=== PATIENT | male | born 1945 | race Caucasian/White ===

== ENCOUNTER → 2017-05-09 13:30 | Outpatient (CLI) | payer MEDICARE, SELFPAY ==
[2017-05-09 15:10] LABS: Protein, Urine (Random) 187.1 mg/dL (<11.9); Protein:Creat Ratio 1627 mg/g CRE (0-200)
[2017-05-09 15:13] LABS: Hematocrit 36.6 % (40-54); Hemoglobin 11.7 g/dl (13.0-16.5); Mean Corpuscular Hgb 30.6 pg (27.0-32.0); Mean Corpuscular Volume 95.8 fL (80-94); Mean Platelet Vol. 11.6 fl (6.2-12.0); Platelet Count 226 K/mm3 (150-450); RBC Distribution Width CV 14.2 % (11.6-14.6); Red Blood Count 3.82 M/mm3 (4.6-6.2); White Blood Count 8.8 K/mm3 (4.4-11.0)
[2017-05-09 15:14] LABS: Scan Indicated on CBC? Y/N NO
[2017-05-09 15:28] LABS: BUN 59 mg/dL (7-18); BUN/Creat Ratio 17.9 RATIO (10-20); Calcium,Total 8.8 mg/dL (8.5-10.1); Chloride 105 mmol/L (98-107); EST Glomerular Filtration Rate 20 mL/min (>60); Est Glom Filt Rate - Afr Amer 24 mL/min (>60); Glucose 100 mg/dL (74-106); Phosphorus 3.5 mg/dL (2.5-4.9); Potassium 5.1 mmol/L (3.5-5.1); Sodium Level 137 mmol/L (136-145)
[2017-05-10 08:56] LABS: PTHIN 127.4 pg/mL (18.4-80.1)
== END ==
PROVIDERS: Family Provider Family Medicine; PCP Family Medicine; Visit Provider Internal Medicine Nephrology
DX: N18.4 Chronic kidney disease, stage 4 (severe) (principal); E11.21 Type 2 diabetes mellitus with diabetic nephropathy
CPT/HCPCS: 36415; 80069; 82570; 83970; 84156; 85027

== ENCOUNTER → 2017-08-17 08:31 | Outpatient (CLI) | payer MEDICARE, SELFPAY ==
[2017-08-17 09:38] LABS: Hematocrit 37.6 % (40-54); Hemoglobin 12.3 g/dl (13.0-16.5); Mean Corp Hgb Conc 32.7 g/gl (32-36); Mean Corpuscular Hgb 30.7 pg (27.0-32.0); Mean Corpuscular Volume 93.8 fL (80-94); Mean Platelet Vol. 11.6 fl (6.2-12.0); Platelet Count 222 K/mm3 (150-450); RBC Distribution Width SD 48.1 fl (35.1-43.9); Red Blood Count 4.01 M/mm3 (4.6-6.2); White Blood Count 7.4 K/mm3 (4.4-11.0)
[2017-08-17 09:49] LABS: Albumin, Serum 3.7 g/dL (3.2-5.0); BUN 52 mg/dL (7-18); BUN/Creat Ratio 18.2 RATIO (10-20); Calcium,Total 8.6 mg/dL (8.5-10.1); Chloride 108 mmol/L (98-107); Creatinine, Serum 2.86 mg/dL (0.70-1.30); EST Glomerular Filtration Rate 23 mL/min (>60); Est Glom Filt Rate - Afr Amer 28 mL/min (>60); Glucose 133 mg/dL (74-106); Phosphorus 3.7 mg/dL (2.5-4.9); Potassium 5.2 mmol/L (3.5-5.1); Sodium Level 141 mmol/L (136-145)
[2017-08-17 09:50] LABS: Scan Indicated on CBC? Y/N NO
[2017-08-17 13:22] LABS: PTHIN 131.1 pg/mL (18.4-80.1)
== END ==
PROVIDERS: Family Provider Family Medicine; PCP Family Medicine; Visit Provider Internal Medicine Nephrology
DX: D64.9 Anemia, unspecified (principal); N18.4 Chronic kidney disease, stage 4 (severe)
CPT/HCPCS: 36415; 80069; 83970; 85027

== ENCOUNTER 2017-08-31 04:06 | Observation (INO) | payer MEDICARE, SELFPAY ==
[2017-08-31] VITALS (29 sets, daily range): BP systolic 140–205; BP diastolic 79–114; PULSE 72–91; RESP 13–24; TEMP 36.5–36.9; O2SAT 94–99; BMI 27.1; BMI 26.6; BMI 26.7
--- NOTE | 2017-08-31 04:20 | EKG12_ITS ---
Test Reason : CP Blood Pressure : / mmHG Vent. Rate : 091 BPM Atrial Rate : 091 BPM P-R Int : 180 ms QRS Dur : 150 ms QT Int : 422 ms P-R-T Axes : 045 -02 089 degrees QTc Int : 519 ms Sinus rhythm with frequent Premature ventricular complexes Left bundle branch block Abnormal ECG Confirmed by ABDIAZIZ CABRERA, MADAN ([id number]), editorial manager TEA BATISTA ([id number]) on 09/01/2017 1:17:07 PM Referred By: CHECO Confirmed By:MADAN FREED MD
--- NOTE | 2017-08-31 04:30 | RAD_ITS ---
STUDY: X-RAY CHEST REASON FOR EXAM: Male, 72 years old. Chest pain and shortness of breath. TECHNIQUE: PA and lateral views of the chest. COMPARISON: December 02, 2013. FINDINGS: Cardiac monitoring leads are present. Patient has had a sternotomy. The lungs are underexpanded. There is a mild perihilar and interstitial thickening present in both lungs. There is no demonstrated pleural abnormality. Normal size heart. There are calcified mediastinal and hilar lymph nodes. Normal visualized pulmonary arteries. There is atherosclerotic calcification of the aortic arch with tortuosity. There is moderate curvature of the thoracic spine convexity towards the right. Estimated amount of angulation is approximately 26 degrees. Normal visualized ribs, clavicles, and shoulders. Filter is visible in inferior vena cava. RAD/Chest PA and Lateral IMPRESSION: No radiographic evidence of acute cardiopulmonary disease. Electronically Signed: Lanie Hurtado MD at 5:16 EDT , Service support ,
[2017-08-31 04:43] LABS: Anion Gap 11 (5-15); BUN 52 mg/dL (7-18); BUN/Creat Ratio 17.8 RATIO (10-20); Calcium,Total 9.4 mg/dL (8.5-10.1); Chloride 108 mmol/L (98-107); Creatinine, Serum 2.92 mg/dL (0.70-1.30); EST Glomerular Filtration Rate 23 mL/min (>60); Est Glom Filt Rate - Afr Amer 27 mL/min (>60); Estimated Creatinine Clearance 21.06 ml/min; Glucose 140 mg/dL (74-106); Potassium 4.6 mmol/L (3.5-5.1); Sodium Level 142 mmol/L (136-145)
[2017-08-31 04:46] LABS: Absolute Lymphocyte Count 1.29 X10^3/ul (0.83-4.51); Absolute Neutrophil Count 5.2 X10^3/uL (2.0-7.7); Basophil# 0.09 X10^3/uL; Eosinophil# 1.41 X10^3/uL; Eosinophils% 16.1 % (0-5); Hematocrit 34.8 % (40-54); Hemoglobin 11.7 g/dl (13.0-16.5); Lymphocyte # 1.29 X10^3/ul (4.0); Lymphocyte % 14.7 % (19-41); Mean Corp Hgb Conc 33.6 g/gl (32-36); Mean Corpuscular Hgb 31.5 pg (27.0-32.0); Mean Corpuscular Volume 93.8 fL (80-94); Mean Platelet Vol. 11.4 fl (6.2-12.0); Monocyte% 9.1 % (0-10); Neutrophil # 5.18 X10^3/uL (2.7-7.7); Platelet Count 224 K/mm3 (150-450); RBC Distribution Width CV 13.9 % (11.6-14.6); RBC Distribution Width SD 45.3 fl (35.1-43.9); Red Blood Count 3.71 M/mm3 (4.6-6.2); White Blood Count 8.8 K/mm3 (4.4-11.0)
[2017-08-31] MEDS: Aspirin 81 MG TAB.CHEW 324 MG PO (04:48)
[2017-08-31 04:55] LABS: POSITIVE COUNT NO; POSITIVE DIFFERENTIAL NO; POSITIVE MORPHOLOGY NO
--- NOTE | 2017-08-31 05:22 | EKG12_ITS ---
Test Reason : REPEAT Blood Pressure : / mmHG Vent. Rate : 087 BPM Atrial Rate : 087 BPM P-R Int : 192 ms QRS Dur : 152 ms QT Int : 432 ms P-R-T Axes : 059 -18 103 degrees QTc Int : 519 ms Sinus rhythm with Fusion complexes Left bundle branch block Abnormal ECG Confirmed by ABDIAZIZ CABRERA, MADAN ([id number]), news videotape editor TEA BATISTA ([id number]) on 09/01/2017 1:17:22 PM Referred By: CHECO Confirmed By:MADAN FREED MD
--- NOTE | 2017-08-31 05:28 | ED.RN ---
DR. KESSLER PUT AN ORDER FOR NITROGLYCERIN TABLETS FOR ACUTE CHEST PAIN AGAIN. WHEN I WENT IN TO BRING THE TABS, PT STATES HE DOES NOT HAVE CHEST PAIN CURRENTLY. HE DESCRIBED THE PAIN TO ME STARTING IN THE BACK AND MOVING AROUND AND HE ?? WHETHER IT COULD BE GAS. DR. KESSLER AWARE.
--- NOTE | 2017-08-31 05:32 | ED.VISSUMM ---
- ER Visit Summary Date of Service: 08/31/17 Chief Complaint: Chest pain History of Present Illness: The patient is a 72 M who presents with chest pain. He does have a history of coronary artery disease with prior stents and CABG. Over the past week he has been having frequent episodes of chest pain usually when he lays flat at night. He describes this as burning. It is often relieved with burping. However he had an episode last night that lasted until he took nitroglycerin and then had resolution of symptoms. He woke about 45 minutes prior to presentation tonight with recurrent pain which again resolved with nitroglycerin and he is pain-free at the time of my history. He states his pain is associated with shortness of breath and diaphoresis. Physical Examination: Afebrile blood pressure 200/104 otherwise unremarkable Moist mucous membranes Heart regular rate and rhythm Lungs are clear Abdomen soft Symmetric radial pulses Extremities nontender Alert Test Results: EKG shows sinus rhythm at a rate of 91 with PVCs and a left bundle branch block. Left bundle branch block is new when compared to prior EKG. Repeat EKG is unchanged. CBC BMP notable for BUN of 52 and creatinine of 2.92 which appears to be near his baseline. Troponin is normal. Chest x-ray shows no acute disease. Emergency Department Course and Treatment: Patient was pain-free at the time my evaluation. He was given labetalol for elevated blood pressure. On reevaluation he states his pain is beginning to return. Nitroglycerin and repeat EKG was ordered. However prior to the nitroglycerin being administered the patient states his pain again resolved. Although his symptoms do sound consistent with a gastrointestinal etiology I am concerned that the last 2 episodes resolved with nitroglycerin. Given his known history I do feel he should have serial enzymes and likely provocative testing. Treatment Plan: [] Disposition: Admit Impression: Chest pain This note was generated with [employer] dictation software. It may contain incorrect words, spelling, and punctuation that were not noted in review of the chart prior to signing ED Disposition - Plan for ED Patient: Chief Complaint: Chest Pain Referrals: Prasad Concepcion III, MD [Primary Care Provider] -
--- NOTE | 2017-08-31 05:41 | HP.PCM_ITS ---
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) Allergies atorvastatin calcium [From Lipitor] Allergy (Verified 08/31/17 04:12) Pain in joints verapamil [From Covera-HS] Allergy (Verified 08/31/17 04:12) passes out lisinopril Adverse Reaction (Verified 08/31/17 04:12) Other muscle pain Niacin Preparations Adverse Reaction (Verified 08/31/17 04:12) Pain in joints Home Medications: Ambulatory Orders Medication Instructions Recorded Allopurinol [Zyloprim] 300 mg PO DAILY 12/02/13 Mirtazapine [Remeron] 15 mg PO QHS 12/02/13 Omeprazole [Prilosec] 20 mg PO DAILY 12/02/13 Doxazosin Mesylate [Cardura] 2 mg PO QHS 01/30/15 Pravastatin [Pravachol] 20 mg PO QHS 01/30/15 Insulin Glargine,Hum.rec.anlog 14 unit SQ BREAKFAST 08/20/15 [Lantus] Venlafaxine XR [Effexor Xr] 150 mg PO DAILY 10/06/15 Aspirin [Aspirin, Baby] 81 mg PO DAILY #0 12/02/15 Clopidogrel Bisulfate [Plavix] 75 mg PO DAILY #0 12/04/15 Amlodipine [Norvasc] 1 tab PO DAILY 08/31/17 Metoprolol Tartrate [Lopressor 75 mg PO BID 08/31/17 (beta manuel)] Potassium Chloride 1 tab PO DAILY 08/31/17 Surgical History: appendectomy, coronary bypass surgery, herniorrhaphy, - - History of ruptured bowel status post colostomy. 2 coronary artery stents. Psychiatric History: - - PTSD Smoking Status: Former smoker - *Family History Sibling History Items: Heart Disease - Physical Exam Vital Signs Temp Pulse Resp BP Pulse Ox 98.0 F 91 16 192/97 H 97 08/31/17 04:07 08/31/17 05:21 08/31/17 05:21 08/31/17 05:28 08/31/17 05:21 Oxygen Flow Rate (L/min) 2 Oxygen Delivery Method Nasal Cannula Weight: 78.5 kg Body Mass Index (BMI) 27.1 Laboratory Tests Past 24 Hrs 08/31/17 08/31/17 04:15 04:15 WBC 8.8 RBC 3.71 L Hgb 11.7 L Hct 34.8 L MCV 93.8 MCH 31.5 MCHC 33.6 RDW 13.9 RDW Differential 45.3 H Plt Count 224 MPV 11.4 Immature Gran % (Auto) 0.100 Neut % (Auto) 59.0 Lymph % (Auto) 14.7 L [place] % (Auto) 9.1 Eos % (Auto) 16.1 H Baso % (Auto) 1.0 Absolute Neuts (auto) 5.2 Absolute Lymphs (auto) 1.29 Total Counted Not Reportable Sodium 142 Potassium 4.6 Chloride 108 H Carbon Dioxide 23.0 Anion Gap 11 BUN 52 H Creatinine 2.92 H Estim Creat Clear Calc 21.06 Est GFR (MDRD) Af Amer 27 L Est GFR (MDRD) Non-Af 23 L BUN/Creatinine Ratio 17.8 Glucose 140 H Calcium 9.4 Troponin I 0.029
--- NOTE | 2017-08-31 06:22 | NURSING ---
Er nurse discharge planner aware that pt is ok for the floor at this time.
--- NOTE | 2017-08-31 06:31 | PCM.HP.STD ---
Problem List (1) Chest pain Status: Acute History of Present Illness Date of Admission: 08/31/17 Chief Complaint: chest Pain The patient is a 72 year old M with a significant history of diverticulitis status post colostomy; GERD; diabetes mellitus; hypertension; hyperlipidemia; and CAD status post triple vessel CABG in 2006, stent in of 2012 and 2 more stents in 2013 who presents with excruciating chest pain ?3 days. Patient described his chest pain as a burning and radiating to the middle of his shoulder blades. He states that his chest pain comes on at night when he is reclining in bed and improves when he wakes up so initially he attributed his chest pain to GERD. He tried nitroglycerin 3 times and each time got relief from it. Seeing that his chest pain is persistent he proceeded to the emergency department. Also he reported to the emergency room doctor that at some point his chest pain was relieved with burping. He described his chest pain severity as a 7 out of 10 when he was at home. At the time of his evaluation his chest pain was about 2. At the Emergency department his EKG showed left bundle-branch block with frequent PVCs. His initial troponin was negative. He denies any associated nausea or diaphoresis. He reports occasionally feeling clammy. 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 He reports that he has not seen his cardiology for a while. 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) Allergies atorvastatin calcium [From Lipitor] Allergy (Verified 08/31/17 04:12) Pain in joints verapamil [From Covera-HS] Allergy (Verified 08/31/17 04:12) passes out lisinopril Adverse Reaction (Verified 08/31/17 04:12) Other muscle pain Niacin Preparations Adverse Reaction (Verified 08/31/17 04:12) Pain in joints Home Medications: Ambulatory Orders Medication Instructions Recorded Allopurinol [Zyloprim] 300 mg PO DAILY 12/02/13 Mirtazapine [Remeron] 15 mg PO QHS 12/02/13 Omeprazole [Prilosec] 20 mg PO DAILY 12/02/13 Doxazosin Mesylate [Cardura] 2 mg PO QHS 01/30/15 Pravastatin [Pravachol] 20 mg PO QHS 01/30/15 Insulin Glargine,Hum.rec.anlog 14 unit SQ BREAKFAST 08/20/15 [Lantus] Venlafaxine XR [Effexor Xr] 150 mg PO DAILY 10/06/15 Clopidogrel Bisulfate [Plavix] 75 mg PO DAILY #0 12/04/15 Amlodipine [Norvasc] 1 tab PO DAILY 08/31/17 Metoprolol Tartrate [Lopressor 75 mg PO BID 08/31/17 (beta manuel)] Potassium Chloride 1 tab PO DAILY 08/31/17 Surgical History: appendectomy, coronary bypass surgery, herniorrhaphy, - - History of ruptured bowel status post colostomy. 2 coronary artery stents. Psychiatric History: - - PTSD Smoking Status: Former smoker Tobacco Use: Non-smoker Alcohol: None - *Family History Sibling History Items: Diabetes, Heart Disease Review of Systems Constitutional: Denies: Chills, Fever, Weight Change HEENT: Denies: Head Aches, Sinus Congestion, Sinus Drainage Cardiovascular: Reports: Chest Pain Respiratory: Denies: Cough, Shortness of breath at rest, Sputum production Gastrointestinal: Denies: Abdominal Pain, Nausea, Vomiting Genitourinary: Denies: Dysuria Musculoskeletal: Reports: - - Pain in between shoulder blades Skin: Denies: Rash, Wounds Neurological: Denies: Numbness, Tingling, Focal weakness Psychiatric: Denies: Anxiety, Depression, Homicidal Ideations, Suicidal Ideations Hematologic/ Lymphatic: Denies: Easy Bruising, Easy Bleeding VTE Information - Inpt Only VTE Present on Admission: No VTE Mechan Device Prophylaxis: None VTE Pharm Prophylaxis ordered?: Yes Patient Problems: Active and Suspected Problems Chest pain (Acute) - Physical Exam General: Alert, Oriented x3, Cooperative HEENT: Atraumatic, PERRLA, EOMI, Normocephalic Neck: Supple, No JVD, Negative Carotid Bruits Lungs: Clear to auscultation, Normal air movement Cardiovascular: Regular rate, No murmurs Abdomen: Bowel Sounds Present, Soft, Non Tender Extremities: No edema, Capillary Refill Less than 3 Seconds Skin: No rashes Musculoskeletal: No Tenderness to Palpation of Joints or Extremities Neurological: Cranial nerves II-XII grossly intact Psych/Mental Status: Normal Affect, Appropriate Vital Signs Temp Pulse Resp BP Pulse Ox 98.0 F 89 15 194/102 H 98 08/31/17 04:07 08/31/17 06:07 08/31/17 06:07 08/31/17 06:07 08/31/17 06:07 Assessment/Plan All Active Problems Chest pain (Acute) The patient is a 72 year old M with a significant history of diverticulitis status post colostomy; GERD; diabetes mellitus; hypertension; hyperlipidemia; and CAD status post triple vessel CABG in 2006, stent in of 2012 and 2 more stents in 2013 who presents with excruciating chest pain ?3 days. Chest pain His chest pain is confounded by symptoms that may appear to be Gastrointestinal. However, his multiple risk factors of diabetes, hypertension, age and a previous CAD makes his chest pain concerning. Chest pain could also be due to elevated blood pressure. He has a left bundle branch block but this may be due to history of CABG or active coronary symptoms. Patient received aspirin 324 mg at the ED. We will continue baby aspirin daily Plavix continued Metoprolol escalated from 75 mg twice daily to 100 mg twice daily. Nitroglycerin drip which should help with his high blood pressure and prevent further chest pain. Will adjust his Protonix from 20 mg daily to 40 mg twice daily to see whether this gives him any relief in the assisted We will consult cardiology for further stratification. Hypertension This could be contributing to his chest pain. Metoprolol as above. Amlodipine and Cardura continued. Nitroglycerin drip as above. Diabetes mellitus On Lantus adjusted due to n.p.o. status Correction scale protocol every 6 hours as patient is n.p.o. GERD Protonix escalated as above DVT prophylaxis Subcutaneous heparin. Code Visit OBSV E&M: 29229 Initial observation care L2
--- NOTE | 2017-08-31 06:34 | HP.PCM_ITS ---
Problem List (1) Chest pain Status: Acute History of Present Illness Date of Admission: 08/31/17 Chief Complaint: chest Pain The patient is a 72 year old M with a significant history of diverticulitis status post colostomy; GERD; diabetes mellitus; hypertension; hyperlipidemia; and CAD status post triple vessel CABG in 2006, stent in of 2012 and 2 more stents in 2013 who presents with excruciating chest pain ?3 days. Patient described his chest pain as a burning and radiating to the middle of his shoulder blades. He states that his chest pain comes on at night when he is reclining in bed and improves when he wakes up so initially he attributed his chest pain to GERD. He tried nitroglycerin 3 times and each time got relief from it. Seeing that his chest pain is persistent he proceeded to the emergency department. Also he reported to the emergency room doctor that at some point his chest pain was relieved with burping. He described his chest pain severity as a 7 out of 10 when he was at home. At the time of his evaluation his chest pain was about 2. At the Emergency department his EKG showed left bundle-branch block with frequent PVCs. His initial troponin was negative. He denies any associated nausea or diaphoresis. He reports occasionally feeling clammy. 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 He reports that he has not seen his cardiology for a while. 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) Allergies atorvastatin calcium [From Lipitor] Allergy (Verified 08/31/17 04:12) Pain in joints verapamil [From Covera-HS] Allergy (Verified 08/31/17 04:12) passes out lisinopril Adverse Reaction (Verified 08/31/17 04:12) Other muscle pain Niacin Preparations Adverse Reaction (Verified 08/31/17 04:12) Pain in joints Home Medications: Ambulatory Orders Medication Instructions Recorded Allopurinol [Zyloprim] 300 mg PO DAILY 12/02/13 Mirtazapine [Remeron] 15 mg PO QHS 12/02/13 Omeprazole [Prilosec] 20 mg PO DAILY 12/02/13 Doxazosin Mesylate [Cardura] 2 mg PO QHS 01/30/15 Pravastatin [Pravachol] 20 mg PO QHS 01/30/15 Insulin Glargine,Hum.rec.anlog 14 unit SQ BREAKFAST 08/20/15 [Lantus] Venlafaxine XR [Effexor Xr] 150 mg PO DAILY 10/06/15 Clopidogrel Bisulfate [Plavix] 75 mg PO DAILY #0 12/04/15 Amlodipine [Norvasc] 1 tab PO DAILY 08/31/17 Metoprolol Tartrate [Lopressor 75 mg PO BID 08/31/17 (beta manuel)] Potassium Chloride 1 tab PO DAILY 08/31/17 Surgical History: appendectomy, coronary bypass surgery, herniorrhaphy, - - History of ruptured bowel status post colostomy. 2 coronary artery stents. Psychiatric History: - - PTSD Smoking Status: Former smoker Tobacco Use: Non-smoker Alcohol: None - *Family History Sibling History Items: Diabetes, Heart Disease Review of Systems Constitutional: Denies: Chills, Fever, Weight Change HEENT: Denies: Head Aches, Sinus Congestion, Sinus Drainage Cardiovascular: Reports: Chest Pain Respiratory: Denies: Cough, Shortness of breath at rest, Sputum production Gastrointestinal: Denies: Abdominal Pain, Nausea, Vomiting Genitourinary: Denies: Dysuria Musculoskeletal: Reports: - - Pain in between shoulder blades Skin: Denies: Rash, Wounds Neurological: Denies: Numbness, Tingling, Focal weakness Psychiatric: Denies: Anxiety, Depression, Homicidal Ideations, Suicidal Ideations Hematologic/ Lymphatic: Denies: Easy Bruising, Easy Bleeding VTE Information - Inpt Only VTE Present on Admission: No VTE Mechan Device Prophylaxis: None VTE Pharm Prophylaxis ordered?: Yes Patient Problems: Active and Suspected Problems Chest pain (Acute) - Physical Exam General: Alert, Oriented x3, Cooperative HEENT: Atraumatic, PERRLA, EOMI, Normocephalic Neck: Supple, No JVD, Negative Carotid Bruits Lungs: Clear to auscultation, Normal air movement Cardiovascular: Regular rate, No murmurs Abdomen: Bowel Sounds Present, Soft, Non Tender Extremities: No edema, Capillary Refill Less than 3 Seconds Skin: No rashes Musculoskeletal: No Tenderness to Palpation of Joints or Extremities Neurological: Cranial nerves II-XII grossly intact Psych/Mental Status: Normal Affect, Appropriate Vital Signs Temp Pulse Resp BP Pulse Ox 98.0 F 89 15 194/102 H 98 08/31/17 04:07 08/31/17 06:07 08/31/17 06:07 08/31/17 06:07 08/31/17 06:07 Assessment/Plan All Active Problems Chest pain (Acute) The patient is a 72 year old M with a significant history of diverticulitis status post colostomy; GERD; diabetes mellitus; hypertension; hyperlipidemia; and CAD status post triple vessel CABG in 2006, stent in of 2012 and 2 more stents in 2013 who presents with excruciating chest pain ?3 days. Chest pain His chest pain is confounded by symptoms that may appear to be Gastrointestinal. However, his multiple risk factors of diabetes, hypertension , age and a previous CAD makes his chest pain concerning. Chest pain could also be due to elevated blood pressure. He has a left bundle branch block but this may be due to history of CABG or active coronary symptoms. Patient received aspirin 324 mg at the ED. We will continue baby aspirin daily Plavix continued Metoprolol escalated from 75 mg twice daily to 100 mg twice daily. Nitroglycerin drip which should help with his high blood pressure and prevent further chest pain. 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 Hypertension This could be contributing to his chest pain. Metoprolol as above. Amlodipine and Cardura continued. Nitroglycerin drip as above. Diabetes mellitus On Lantus adjusted due to n.p.o. status Correction scale protocol every 6 hours as patient is n.p.o. GERD Protonix escalated as above DVT prophylaxis Subcutaneous heparin. Code Visit OBSV E&M: 81888 Initial observation care L2
[2017-08-31 07:11] LABS: Bedside Glucose 159 mg/dL (70-110)
[2017-08-31] MEDS: amLODIPine 5 MG Tablet PO ×2 (07:25→08:52)
[2017-08-31] MEDS: Metoprolol Tartrate 100 MG Tablet PO (07:30)
[2017-08-31] MEDS: HYDROCHLOROTHIAZIDE 12.5 MG CAPSULE PO (07:38)
[2017-08-31] MEDS: Losartan Potassium 50 MG Tablet PO (07:38)
[2017-08-31] MEDS: Nitroglycerin Infusion 250 ML 3 MG IV (07:44)
[2017-08-31] MEDS: Isosorbide Mononitrate 60 MG Tablet PO (10:36)
[2017-08-31] MEDS: Aspirin E.C. 81 MG Tablet PO (10:36)
[2017-08-31] MEDS: Venlafaxine XR 150 MG Capsule PO (10:36)
[2017-08-31] MEDS: Allopurinol 300 MG Tablet PO (10:37)
[2017-08-31] MEDS: Pantoprazole Sodium 40 MG Tablet PO ×2 (10:37→22:28)
[2017-08-31] MEDS: Clopidogrel Bisulfate 75 MG Tablet PO (10:37)
--- NOTE | 2017-08-31 10:41 | PCM.CONS.C ---
Problem List (1) Chest pain Status: Acute (2) History of pulmonary embolism Status: Chronic Comment: Provoked (3) History of coronary artery disease Status: Chronic (4) CKD (chronic kidney disease), stage III Status: Chronic (5) History of hypertension Status: Chronic (6) History of hyperlipidemia Status: Chronic Reason for Consult Date of Consultation: 08/31/17 Reason for Consultation: Chest pain, coronary artery disease status post three-vessel bypass surgery, angioplasty and stenting, hypertension, hypercholesterolemia, diabetes, chronic renal insufficiency History of Present Illness: The patient is a 72 year old M with a history of hypertension, diabetes, hypercholesterolemia, coronary artery disease status post three-vessel bypass surgery at [facility] in 2006, followed by angioplasty and stenting in 2013, of unknown vessels, follows with Dr. Villeda, also has a history of diverticulitis status post colectomy with colostomy bag in 2006 at around the time of his bypass surgery. In addition the patient has significant hypertension which appears to be marginally controlled. Patient has noted new onset substernal chest pain radiating to his right shoulder similar to his previous angina with associated hypertension. The patient took one sublingual nitroglycerin last evening which improved the pain, and then it returned. He sought medical attention at [facility] ER. At that time he had an EKG which showed normal sinus rhythm with baseline left bundle branch block and PVCs. His first 2 troponins have been negative. Due to his hypertension he was placed on a nitroglycerin drip, and his chest pain has completely resolved. On further history the patient states that he has had recumbent type chest pain laying down over the last week or so mostly in his back, which is improved with sitting forward. He denied any exertional symptoms. He has had no changes to his exercise capacity and no changes to his medications. He is compliant with medications as well. [] Past Medical History Allergies/Adverse Reactions: Allergies atorvastatin calcium [From Lipitor] Allergy (Verified 08/31/17 04:12) Pain in joints verapamil [From Covera-HS] Allergy (Verified 08/31/17 04:12) passes out lisinopril Adverse Reaction (Verified 08/31/17 04:12) Other muscle pain Niacin Preparations Adverse Reaction (Verified 08/31/17 04:12) Pain in joints Home Medications: Ambulatory Orders Medication Instructions Recorded Allopurinol [Zyloprim] 300 mg PO DAILY 12/02/13 Mirtazapine [Remeron] 15 mg PO QHS 12/02/13 Omeprazole [Prilosec] 20 mg PO DAILY 12/02/13 Doxazosin Mesylate [Cardura] 2 mg PO QHS 01/30/15 Pravastatin [Pravachol] 20 mg PO QHS 01/30/15 Insulin Glargine,Hum.rec.anlog 14 unit SQ BREAKFAST 08/20/15 [Lantus] Venlafaxine XR [Effexor Xr] 150 mg PO DAILY 10/06/15 Clopidogrel Bisulfate [Plavix] 75 mg PO DAILY #0 12/04/15 Amlodipine [Norvasc] 1 tab PO DAILY 08/31/17 Metoprolol Tartrate [Lopressor 75 mg PO BID 08/31/17 (beta manuel)] Potassium Chloride 1 tab PO DAILY 08/31/17 Past Medical History (Chronic Problems): Chronic Problems DM2 (diabetes mellitus, type 2) (Chronic) CKD (chronic kidney disease), stage IV (Chronic) History of pulmonary embolism (Chronic) Provoked History of coronary artery disease (Chronic) CKD (chronic kidney disease), stage III (Chronic) History of hypertension (Chronic) History of hyperlipidemia (Chronic) History of gout (Chronic) 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 2 coronary artery stents. Psychiatric History: - - PTSD - *Family History Sibling History Items: Diabetes, Heart Disease Smoking Status: Former smoker Tobacco Use: Non-smoker Alcohol: None Review of Systems - Review of Systems General: Denies: Fever, Night Sweats, Fatigue Cardiovascular: Reports: Chest Discomfort at Rest. Denies: Chest Discomfort, Shortness of Breath, Orthopnea, PND, Peripheral Edema, Palpitations, Lightheadedness, Dizziness, Near Syncope, Syncope Respiratory: Denies: Cough, Sputum Production, Hemoptysis Gastrointestinal: Denies: Hematemesis, Hematochezia, Melena Genitourinary: Denies: Dysuria, Hematuria Skin: Denies: Rash Subjectve: Patient sitting in bed, no acute distress. Objective: Vital Signs Temp Pulse Resp BP Pulse Ox 97.7 F L 80 15 178/87 H 97 08/31/17 06:50 08/31/17 09:45 08/31/17 09:45 08/31/17 09:45 08/31/17 09:45 Oxygen Delivery Method Room Air Weight: 170 lb 6.677 oz Body Mass Index (BMI) 26.6 General: Awake, Alert, Oriented x 3 HEENT: PERRL, EOMI, Sclera Non Icteric Neck: Supple, Good ROM, No Lymph Node Enlargement Lungs: Clear to auscultation Cardiovascular: Regular Rhythm, Normal S1, Normal S2, No Murmurs, No Rubs, No Gallops Vascular: No Carotid Bruits, Normal Femoral Pulses, Normal Radial Pulses, Normal Dorsalis Pedal Pulse, Normal Posterior Tibial Pulses Abdomen: Bowel Sounds Present, Soft, Non Tender, No HSM, No Organomegaly Extremities: No Cyanosis, No Clubbing, No edema Neurological: No Focal Motor or Sensory Deficit 08/31/17 07:05: Troponin I 0.024 Rhythm: EKG: ECHO: Pending Stress Test: Cardiac Cath: PCI: CT Surgery: Holter monitor: EPS: PPM: CXR: Chest CT Scan: Assessment/Plan 1. Coronary artery disease: The patient presents with somewhat atypical chest pain with recumbency, improved with sitting forward, however does appear to get better with sublingual nitroglycerin and IV nitroglycerin drip. My suspicion is that he has significant hypertension induced chest pain, due to poorly controlled blood pressure. Nonetheless he has an extensive cardiac history having three-vessel bypass surgery about 11 years ago followed by subsequent angioplasty and stenting of unknown vessels in 2013. I requested that the old records from his bypass surgery as well as a subsequent angioplasty be obtained from Dr. Villeda's office. Patient is ruled out for myocardial infarction. I recommended that we change his metoprolol to Coreg 6.25 mg p.o. twice daily for better blood pressure control, start the patient on Cozaar 50 mg p.o. daily, as well as start Imdur 60 mg p.o. daily first dose now. We will wean the patient off his nitroglycerin drip as he is chest pain-free and has had no significant EKG changes or troponin abnormalities. If the patient is able to stay stable off his nitroglycerin drip and his blood pressure controlled, we will proceed with a modified Sandeep treadmill echocardiogram later this afternoon. If this is grossly abnormal for ischemia, he may require repeat catheterization and graft angiography. He is currently on Plavix daily, would recommend starting baby aspirin 81 mg p.o. daily and supplement to this. In addition I recommend a 2D echo with Doppler to document his LV function, and pulmonary pressures given his pulmonary embolism history. 2. Hyperlipidemia: Given the patient's diabetes and extensive coronary disease he requires aggressive LDL reduction. We will check his fasting lipid profile and adjust the statin medications to reduce his LDL at least less than 70 preferably less than that. 3. Chronic renal insufficiency: The patient require IV fluid preprocedure if he were to require a left heart catheterization. Current creatinine is 2.9. 4. Thank you very much for the opportunity to put dissipate in the cardiac care of your patient. Consultation time took place between 1020 and 11 AM. Code Visit Inpatient E&M: 38026 Init Hosp L2
--- NOTE | 2017-08-31 10:49 | ECHOD_ITS ---
Reason For Study: CHEST PAIN Procedure This was a 2D Doppler, Color Flow transthoracic echocardiogram. Exam performed portable in patient room. Left Ventricle Mildly dilated left ventricle. The estimated ejection fraction is 40-45 %. Stage 1 diastolic dysfunction. There are regional wall motion abnormalities as specified. Mid-Anterior : Mildly hypokinetic. Mid-anteroseptal : Mildly hypokinetic. Right Ventricle Normal size and thickness. Normal systolic function. Atria Normal left atrium. Normal right atrium. Normal atrial septum. Mitral Valve Mild diffuse mitral valve thickening. Mild (1+) eccentric mitral valve insufficiency. Tricuspid Valve Normal tricuspid valve. Trivial tricuspid valve insufficiency. Right ventricular systolic pressure estimated to be 25 mmHg. Aortic Valve Trisinus/trileaflet aortic valve. Mild diffuse aortic valve thickening. There is no aortic stenosis. Mild (1+) aortic valve insufficiency. Pulmonic Valve Normal pulmonic valve. Trivial pulmonic valve insufficiency. Great Vessels Calcified aortic root. Mild atherosclerosis of the aortic arch. Normal inferior vena cava. Inferior vena cava collapse with sniff. Pericardium/Pleural No pericardial effusion. MMode/2D Measurements & Calculations LVIDd: 5.1 cm IVSd: 1.2 cm Ao root diam: 3.2 cm LVIDs: 4.0 cm LVPWd: 1.1 cm RVDd: 2.7 cm FS: 21.5 % LAV(MOD-bp): 55.5 ml LVAd ap4: 42.1 cm2 SV(MOD-sp4): 67.8 ml LAV(MOD-bp) Indexed: 29.4 ml/m2 EDV(MOD-sp4): 154.5 ml LAV(MOD-sp2): 55.3 ml EDV(sp4-el): 161.2 ml LAV(MOD-sp4): 54.2 ml LVAs ap4: 28.9 cm2 ESV(MOD-sp4): 86.7 ml ESV(sp4-el): 90.0 ml EF(MOD-sp4): 43.9 % EF(sp4-el): 44.2 % SV(sp4-el): 71.3 ml LA A4 area: 18.9 cm2 RA A4 area: 13.4 cm2 Time Measurements MV dec time: 0.29 sec Doppler Measurements & Calculations MV E max kanu: 53.3 cm/sec Lat Peak E' Kanu: 7.2 cm/sec Med Peak E' Kanu: 4.8 cm/sec MV A max kanu: 80.8 cm/sec E/E' lat: 7.4 E/E' med: 11.2 MV E/A: 0.66 Ao V2 max: 120.9 cm/sec AI max kanu: 397.0 cm/sec LV V1 max: 66.6 cm/sec Ao max P.8 mmHg AI max P.0 mmHg LV V1 max P.8 mmHg AI dec slope: 282.2 cm/sec2 AI P1/2t: 412.0 msec PA V2 max: 94.2 cm/sec PI end-d kanu: 139.8 cm/sec TR max kanu: 221.6 cm/sec TR max P.6 mmHg Interpretation Summary Mildly dilated left ventricle. The estimated ejection fraction is 40-45 %. Stage 1 diastolic dysfunction. There are regional wall motion abnormalities as specified. Mild (1+) eccentric mitral valve insufficiency. Trivial tricuspid valve insufficiency. Right ventricular systolic pressure estimated to be 25 mmHg. Mild (1+) aortic valve insufficiency. There is no comparison study available. Ordering Physician: Jayy Barnard Referring Physician: RAMO MOREIRA Performed By: Katia Madden, ALETHEA, RVT
[2017-08-31 11:19] LABS: Cholesterol 224 mg/dL (200); High Density Lipoprotein 40 mg/dL; Triglycerides 238 mg/dL; Very Low Density Lipoprotein 48 mg/dL (5-40)
[2017-08-31 11:51] LABS: Bedside Glucose 114 mg/dL (70-110)
--- NOTE | 2017-08-31 13:05 | PCM.PROGNOTE ---
Patient Problems: Active and Suspected Problems Chest pain (Acute) Subjective: Patient seen and examined. Denies further chest pain. States chest pain has been ongoing and typically occurs at night. Worse while he is lying flat. Denies shortness of breath or other associated symptoms. No other current complaints. - Physical Exam General: Alert, Oriented x3, Cooperative HEENT: Atraumatic, PERRLA, EOMI, Normocephalic Neck: Supple, No JVD, Negative Carotid Bruits Lungs: Clear to auscultation, Normal air movement Cardiovascular: Regular rate, No murmurs Abdomen: Bowel Sounds Present, Soft, Non Tender Extremities: No clubbing, No cyanosis, No edema, Capillary Refill Less than 3 Seconds Skin: No rashes, No breakdown Musculoskeletal: No Tenderness to Palpation of Joints or Extremities Neurological: Cranial nerves II-XII grossly intact, Neuro grossly intact Psych/Mental Status: Normal Affect, Appropriate Vital Signs Temp Pulse Resp BP Pulse Ox 97.7 F L 77 18 169/86 H 96 08/31/17 06:50 08/31/17 11:30 08/31/17 10:45 08/31/17 10:45 08/31/17 10:45 Oxygen Delivery Method Room Air Weight: 170 lb 6.677 oz Body Mass Index (BMI) 26.6 Intake and Output for Last 24 Hours 08/29/17 08/30/17 08/31/17 23:59 23:59 23:59 Intake Total 110 / 110 Balance 110 / 110 Laboratory Tests Past 24 Hrs 08/31/17 08/31/17 08/31/17 07:05 10:30 10:30 Troponin I 0.024 0.029 Triglycerides 238 H Cholesterol 224 H LDL Cholesterol 136 H VLDL Cholesterol 48 H HDL Cholesterol 40 POC Glucose 08/31/17 08/31/17 11:46 07:03 POC Glucose 114 H 159 H Medical Necessity - Tobacco Use Smoking Status: Former smoker Tobacco Use: Non-smoker Assessment/Plan All Active Problems Chest pain (Acute) 1. Chest pain, history of CAD status post three-vessel bypass and stenting-troponin negative. Patient denies active chest pain. Will undergo stress echo this afternoon if blood pressure is improved. Cardiology following. 2. Hypertensive urgency-originally placed on nitro drip on admission which has since been discontinued. Cardiology adjusting medications. Metoprolol changed to Coreg 6.25 mg twice daily. Patient was started on Cozaar 50 mg daily. Imdur 60 mg daily. 3. Type 2 diabetes [id number] before meals at bedtime with sliding scale insulin. Continue home Lantus regimen. 4. GERD-on omeprazole 20 mg daily. Begin Protonix 40 mg twice daily. 5. Chronic kidney disease stage IV-creatinine at baseline. 6. Hyperlipidemia-increase home statin regimen to 40 mg nightly. DVT prophylaxis-heparin subcu. This patient was seen by DANNY Obrien under the supervision of Dr. Hogan.
--- NOTE | 2017-08-31 13:25 | PN_ITS ---
Patient Problems: Active and Suspected Problems Chest pain (Acute) Subjective: Patient seen and examined. Denies further chest pain. States chest pain has been ongoing and typically occurs at night. Worse while he is lying flat. Denies shortness of breath or other associated symptoms. No other current complaints. - Physical Exam General: Alert, Oriented x3, Cooperative HEENT: Atraumatic, PERRLA, EOMI, Normocephalic Neck: Supple, No JVD, Negative Carotid Bruits Lungs: Clear to auscultation, Normal air movement Cardiovascular: Regular rate, No murmurs Abdomen: Bowel Sounds Present, Soft, Non Tender Extremities: No clubbing, No cyanosis, No edema, Capillary Refill Less than 3 Seconds Skin: No rashes, No breakdown Musculoskeletal: No Tenderness to Palpation of Joints or Extremities Neurological: Cranial nerves II-XII grossly intact, Neuro grossly intact Psych/Mental Status: Normal Affect, Appropriate Vital Signs Temp Pulse Resp BP Pulse Ox 97.7 F L 77 18 169/86 H 96 08/31/17 06:50 08/31/17 11:30 08/31/17 10:45 08/31/17 10:45 08/31/17 10:45 Oxygen Delivery Method Room Air Weight: 170 lb 6.677 oz Body Mass Index (BMI) 26.6 Intake and Output for Last 24 Hours 08/29/17 08/30/17 08/31/17 23:59 23:59 23:59 Intake Total 110 / 110 Balance 110 / 110 Laboratory Tests Past 24 Hrs 08/31/17 08/31/17 08/31/17 07:05 10:30 10:30 Troponin I 0.024 0.029 Triglycerides 238 H Cholesterol 224 H LDL Cholesterol 136 H VLDL Cholesterol 48 H HDL Cholesterol 40 POC Glucose 08/31/17 08/31/17 11:46 07:03 POC Glucose 114 H 159 H Medical Necessity - Tobacco Use Smoking Status: Former smoker Tobacco Use: Non-smoker Assessment/Plan All Active Problems Chest pain (Acute) 1. Chest pain, history of CAD status post three-vessel bypass and stenting- troponin negative. Patient denies active chest pain. Will undergo stress echo this afternoon if blood pressure is improved. Cardiology following. 2. Hypertensive urgency-originally placed on nitro drip on admission which has since been discontinued. Cardiology adjusting medications. Metoprolol changed to Coreg 6.25 mg twice daily. Patient was started on Cozaar 50 mg daily. Imdur 60 mg daily. 3. Type 2 diabetes [id number] before meals at bedtime with sliding scale insulin. Continue home Lantus regimen. 4. GERD-on omeprazole 20 mg daily. Begin Protonix 40 mg twice daily. 5. Chronic kidney disease stage IV-creatinine at baseline. 6. Hyperlipidemia-increase home statin regimen to 40 mg nightly. DVT prophylaxis-heparin subcu. This patient was seen by DANNY Obrien under the supervision of Dr. Hogan.
[2017-08-31] MEDS: Heparin Injection (Vial) 5,000 UNIT/ML VIAL 5000 UNIT SC ×2 (15:36→22:27)
[2017-08-31 18:21] LABS: Bedside Glucose 279 mg/dL (70-110)
[2017-08-31] MEDS: Doxazosin 1 MG Tablet 2 MG PO (22:27)
[2017-08-31] MEDS: Pravastatin 40 MG Tablet PO (22:31)
[2017-08-31] MEDS: Carvedilol 6.25 MG Tablet PO (22:31)
[2017-08-31] MEDS: Mirtazapine 15 MG Tablet PO (22:32)
[2017-09-01 00:20] LABS: Bedside Glucose 145 mg/dL (70-110)
[2017-09-01 01:17] VITALS: PULSE 77
[2017-09-01 01:46] LABS: Magnesium 2.1 mg/dL (1.6-2.6)
[2017-09-01 01:55] LABS: Hematocrit 31.1 % (40-54); Hemoglobin 10.4 g/dl (13.0-16.5); Mean Corp Hgb Conc 33.4 g/gl (32-36); Mean Corpuscular Hgb 31.5 pg (27.0-32.0); Mean Corpuscular Volume 94.2 fL (80-94); Mean Platelet Vol. 11.4 fl (6.2-12.0); Platelet Count 191 K/mm3 (150-450); RBC Distribution Width CV 14.1 % (11.6-14.6); RBC Distribution Width SD 46.2 fl (35.1-43.9); White Blood Count 7.7 K/mm3 (4.4-11.0)
[2017-09-01 01:58] LABS: Scan Indicated on CBC? Y/N NO
[2017-09-01 02:02] LABS: Anion Gap 8 (5-15); BUN 51 mg/dL (7-18); BUN/Creat Ratio 16.2 RATIO (10-20); Calcium,Total 8.5 mg/dL (8.5-10.1); Chloride 110 mmol/L (98-107); Cholesterol 209 mg/dL (200); Creatinine, Serum 3.14 mg/dL (0.70-1.30); EST Glomerular Filtration Rate 21 mL/min (>60); Est Glom Filt Rate - Afr Amer 25 mL/min (>60); Estimated Creatinine Clearance 19.59 ml/min; Glucose 80 mg/dL (74-106); High Density Lipoprotein 37 mg/dL; Sodium Level 139 mmol/L (136-145); Triglycerides 229 mg/dL; Very Low Density Lipoprotein 46 mg/dL (5-40)
[2017-09-01 03:05] VITALS: PULSE 76
[2017-09-01 04:12] VITALS: BP 113/63; PULSE 87; RESP 16; TEMP 36.7; O2SAT 96
[2017-09-01 06:59] VITALS: PULSE 82
[2017-09-01 07:11] LABS: Bedside Glucose 103 mg/dL (70-110)
[2017-09-01 08:42] VITALS: BP 165/90; PULSE 80; RESP 18; TEMP 36.6; O2SAT 97
--- NOTE | 2017-09-01 10:03 | DCINST_ITS ---
- Discharge Diagnoses Current Active Problems: Current Active and Chronic Problems Chest pain (Acute) You will use the following diet at home:: Cardiac Discharge Activity: Return to Normal Activity Call your doctor if you observe: Shortness of breath, Dizziness, Fainting spells , Chest pain Allergies/Adverse Reactions: Allergies atorvastatin calcium [From Lipitor] Allergy (Verified 08/31/17 04:12) Pain in joints verapamil [From Covera-HS] Allergy (Verified 08/31/17 04:12) passes out lisinopril Adverse Reaction (Verified 08/31/17 04:12) Other muscle pain Niacin Preparations Adverse Reaction (Verified 08/31/17 04:12) Pain in joints Medications to take at Discharge Allopurinol [Zyloprim] 300 mg PO DAILY 12/02/13 Mirtazapine [Remeron] 15 mg PO QHS 12/02/13 Doxazosin Mesylate [Cardura] 2 mg PO QHS 01/30/15 Insulin Glargine,Hum.rec.anlog [Lantus] 14 unit SQ BREAKFAST 08/20/15 Venlafaxine XR [Effexor Xr] 150 mg PO DAILY 10/06/15 Clopidogrel Bisulfate [Plavix] 75 mg PO DAILY #0 12/04/15 Amlodipine [Norvasc] 1 tab PO DAILY 08/31/17 Potassium Chloride 1 tab PO DAILY 08/31/17 Aspirin [Aspirin, Baby] 81 mg PO DAILY@0800 #30 tab.chew 09/01/17 Carvedilol [Coreg (Beta Pedro)] 6.25 mg PO BID #60 tab 09/01/17 Furosemide [Lasix] 40 mg PO DAILY #30 tab 09/01/17 Isosorbide Mononitrate [Imdur] 60 mg PO DAILY #30 tab 09/01/17 Pantoprazole Sodium [Protonix] 40 mg PO BID #60 tab 09/01/17 Pravastatin [Pravachol] 40 mg PO QHS #30 tab 09/01/17 The following prescriptions were given: Aspirin [Aspirin, Baby] 81 mg PO DAILY@0800 #30 tab.chew Furosemide [Lasix] 40 mg PO DAILY #30 tab Isosorbide Mononitrate [Imdur] 60 mg PO DAILY #30 tab Pravastatin [Pravachol] 40 mg PO QHS #30 tab Carvedilol [Coreg (Beta Pedro)] 6.25 mg PO BID #60 tab Pantoprazole Sodium [Protonix] 40 mg PO BID #60 tab Primary Care Physician: Prasad Concepcion III, MD [Primary Care Provider] - Please follow up with your Primary Care Physician in: 1 Week Test Results: Test results from this visit will be discussed in further detail at your follow- up appointment, if applicable. Please Follow Up With: Patrick Vigil MD When: 1-2 Weeks Proposed Discharge Date: 09/01/17
--- NOTE | 2017-09-01 10:03 | PCM.DC.SUM ---
Discharge Date and Diagnosis Date of Admission: 08/31/17 Date of Discharge: 09/01/17 - Primary Discharge Diagnosis Active and Suspected Problems 1. Chest pain- ACS ruled out 2. 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 Electronically Signed: Lanie Hurtado MD at 5:16 EDT , Service support , Dr. Barnard- Cardiology Operations: None Procedures: - - Stress echo Summary of Care Provided: Patient is a 72-year-old male admitted 08/31/2017 due to chest pain. He has a past medical history of type 2 diabetes mellitus, hypertension, hyperlipidemia, CAD status post triple-vessel CABG and stenting, history of diverticulitis status post colostomy, chronic kidney disease stage IV, history of pulmonary embolism, history of gout. 1. Chest pain, history of CAD status post three-vessel bypass and stenting-troponin negative. Patient denies active chest pain. Dr. Barnard consulted during admission. Patient follows with Dr. Vigil, [facility] as outpatient. Echocardiogram demonstrated an EF of 40-45%, stage I diastolic dysfunction, regional wall motion abnormalities, mild mitral valve insufficiency, trivial tricuspid valve insufficiency, RVSP estimated to be 25 mmHg, mild aortic valve insufficiency. Stress echo demonstrated no evidence of ischemia. Patient will follow up with Dr. Villeda and 1-2 weeks. If he continues to have chest pain, patient will follow up sooner with plans for cardiac catheterization as outpatient. He will continue aspirin, statin, Plavix at discharge. 2. Hypertensive urgency-originally placed on nitro drip on admission which has since been discontinued. Metoprolol changed to Coreg 6.25 mg twice daily. Patient was started on Imdur 60 mg daily and Lasix 40 mg daily. 3. Type 2 diabetes mellitus-continue home insulin regimen. 4. GERD-PPI increased at discharge given patient's complaints of chest pain at nighttime while lying flat. Continue Protonix 40 mg twice daily. If symptoms not improved, can resume once daily regimen. 5. Chronic kidney disease stage IV-creatinine at baseline. Repeat BMP in 3 days. To be followed by primary care physician. 6. Hyperlipidemia-home pravastatin regimen increased to 40 mg nightly. General: Alert, Oriented x3, Cooperative HEENT: Atraumatic, PERRLA, EOMI, Normocephalic Neck: Supple, No JVD, Negative Carotid Bruits Lungs: Clear to auscultation, Normal air movement Cardiovascular: Regular rate, No murmurs Abdomen: Bowel Sounds Present, Soft, Non Tender Extremities: No clubbing, No cyanosis, No edema, Capillary Refill Less than 3 Seconds Skin: No rashes, No breakdown Musculoskeletal: No Tenderness to Palpation of Joints or Extremities Neurological: Cranial nerves II-XII grossly intact, Neuro grossly intact Psych/Mental Status: Normal Affect, Appropriate Patient seen exam prior to discharge. Physical assessment as noted above. Patient stable for discharge home with follow-up with primary care physician and cardiology as noted above. This patient was seen by DANNY Obrien under the supervision of Dr. Hogan. Discharge Diet: Low fat/ Low Cholesterol Discharge Activity: Return to Normal Activity Call your doctor if you observe: Shortness of breath, Dizziness, Fainting spells, Chest pain Home Medications: Medications to take at Discharge Allopurinol [Zyloprim] 300 mg PO DAILY 12/02/13 Mirtazapine [Remeron] 15 mg PO QHS 12/02/13 Doxazosin Mesylate [Cardura] 2 mg PO QHS 01/30/15 Insulin Glargine,Hum.rec.anlog [Lantus] 14 unit SQ BREAKFAST 08/20/15 Venlafaxine XR [Effexor Xr] 150 mg PO DAILY 10/06/15 Clopidogrel Bisulfate [Plavix] 75 mg PO DAILY #0 12/04/15 Amlodipine [Norvasc] 1 tab PO DAILY 08/31/17 Potassium Chloride 1 tab PO DAILY 08/31/17 Aspirin [Aspirin, Baby] 81 mg PO DAILY@0800 #30 tab.chew 09/01/17 Carvedilol [Coreg (Beta Pedro)] 6.25 mg PO BID #60 tab 09/01/17 Furosemide [Lasix] 40 mg PO DAILY #30 tab 09/01/17 Isosorbide Mononitrate [Imdur] 60 mg PO DAILY #30 tab 09/01/17 Pantoprazole Sodium [Protonix] 40 mg PO BID #60 tab 09/01/17 Pravastatin [Pravachol] 40 mg PO QHS #30 tab 09/01/17 Following Prescrptions Were Given to Patient: Aspirin [Aspirin, Baby] 81 mg PO DAILY@0800 #30 tab.chew Furosemide [Lasix] 40 mg PO DAILY #30 tab Isosorbide Mononitrate [Imdur] 60 mg PO DAILY #30 tab Pravastatin [Pravachol] 40 mg PO QHS #30 tab Carvedilol [Coreg (Beta Pedro)] 6.25 mg PO BID #60 tab Pantoprazole Sodium [Protonix] 40 mg PO BID #60 tab Other Amb Orders: Basic Metabolic Profile (BMP) Time Frame: 3 Days, Location: Laboratory Primary Care Physician: Prasad Concepcion III, MD [Primary Care Provider] - Please follow up with your Primary Care Physician in: 1 Week Please Follow Up With: Patrick Vigil MD When: 1-2 Weeks Disposition: Home Minutes spent on discharge:: 35 Patient Condition:: Stable Medical Necessity - Tobacco Use Smoking Status: Former smoker Tobacco Use: Non-smoker Meaningful Use Info Meaningful Use Diagnoses (Choose all that apply): None applicable
[2017-09-01] MEDS: Heparin Injection (Vial) 5,000 UNIT/ML VIAL 5000 UNIT SC (10:04)
[2017-09-01] MEDS: amLODIPine 5 MG Tablet PO (10:06)
[2017-09-01] MEDS: Clopidogrel Bisulfate 75 MG Tablet PO (10:06)
[2017-09-01] MEDS: Isosorbide Mononitrate 60 MG Tablet PO (10:06)
[2017-09-01] MEDS: Allopurinol 300 MG Tablet PO (10:07)
--- NOTE | 2017-09-01 10:07 | DS.PCM_ITS ---
Discharge Date and Diagnosis Date of Admission: 08/31/17 Date of Discharge: 09/01/17 - Primary Discharge Diagnosis Active and Suspected Problems 1. Chest pain- ACS ruled out 2. 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 Electronically Signed: Lanie Hurtado MD at 5:16 EDT , Service support , Dr. Barnard- Cardiology Operations: None Procedures: - - Stress echo Summary of Care Provided: Patient is a 72-year-old male admitted 08/31/2017 due to chest pain. He has a past medical history of type 2 diabetes mellitus, hypertension, hyperlipidemia, CAD status post triple-vessel CABG and stenting, history of diverticulitis status post colostomy, chronic kidney disease stage IV, history of pulmonary embolism, history of gout. 1. Chest pain, history of CAD status post three-vessel bypass and stenting- troponin negative. Patient denies active chest pain. Dr. Barnard consulted during admission. Patient follows with Dr. Vigil, [facility] as outpatient. Echocardiogram demonstrated an EF of 40-45%, stage I diastolic dysfunction, regional wall motion abnormalities, mild mitral valve insufficiency , trivial tricuspid valve insufficiency, RVSP estimated to be 25 mmHg, mild aortic valve insufficiency. Stress echo demonstrated no evidence of ischemia. Patient will follow up with Dr. Villeda and 1-2 weeks. If he continues to have chest pain, patient will follow up sooner with plans for cardiac catheterization as outpatient. He will continue aspirin, statin, Plavix at discharge. 2. Hypertensive urgency-originally placed on nitro drip on admission which has since been discontinued. Metoprolol changed to Coreg 6.25 mg twice daily. Patient was started on Imdur 60 mg daily and Lasix 40 mg daily. 3. Type 2 diabetes mellitus-continue home insulin regimen. 4. GERD-PPI increased at discharge given patient's complaints of chest pain at nighttime while lying flat. Continue Protonix 40 mg twice daily. If symptoms not improved, can resume once daily regimen. 5. Chronic kidney disease stage IV-creatinine at baseline. Repeat BMP in 3 days. To be followed by primary care physician. 6. Hyperlipidemia-home pravastatin regimen increased to 40 mg nightly. General: Alert, Oriented x3, Cooperative HEENT: Atraumatic, PERRLA, EOMI, Normocephalic Neck: Supple, No JVD, Negative Carotid Bruits Lungs: Clear to auscultation, Normal air movement Cardiovascular: Regular rate, No murmurs Abdomen: Bowel Sounds Present, Soft, Non Tender Extremities: No clubbing, No cyanosis, No edema, Capillary Refill Less than 3 Seconds Skin: No rashes, No breakdown Musculoskeletal: No Tenderness to Palpation of Joints or Extremities Neurological: Cranial nerves II-XII grossly intact, Neuro grossly intact Psych/Mental Status: Normal Affect, Appropriate Patient seen exam prior to discharge. Physical assessment as noted above. Patient stable for discharge home with follow-up with primary care physician and cardiology as noted above. This patient was seen by DANNY Obrien under the supervision of Dr. Hogan. Discharge Diet: Low fat/ Low Cholesterol Discharge Activity: Return to Normal Activity Call your doctor if you observe: Shortness of breath, Dizziness, Fainting spells , Chest pain Home Medications: Medications to take at Discharge Allopurinol [Zyloprim] 300 mg PO DAILY 12/02/13 Mirtazapine [Remeron] 15 mg PO QHS 12/02/13 Doxazosin Mesylate [Cardura] 2 mg PO QHS 01/30/15 Insulin Glargine,Hum.rec.anlog [Lantus] 14 unit SQ BREAKFAST 08/20/15 Venlafaxine XR [Effexor Xr] 150 mg PO DAILY 10/06/15 Clopidogrel Bisulfate [Plavix] 75 mg PO DAILY #0 12/04/15 Amlodipine [Norvasc] 1 tab PO DAILY 08/31/17 Potassium Chloride 1 tab PO DAILY 08/31/17 Aspirin [Aspirin, Baby] 81 mg PO DAILY@0800 #30 tab.chew 09/01/17 Carvedilol [Coreg (Beta Pedro)] 6.25 mg PO BID #60 tab 09/01/17 Furosemide [Lasix] 40 mg PO DAILY #30 tab 09/01/17 Isosorbide Mononitrate [Imdur] 60 mg PO DAILY #30 tab 09/01/17 Pantoprazole Sodium [Protonix] 40 mg PO BID #60 tab 09/01/17 Pravastatin [Pravachol] 40 mg PO QHS #30 tab 09/01/17 Following Prescrptions Were Given to Patient: Aspirin [Aspirin, Baby] 81 mg PO DAILY@0800 #30 tab.chew Furosemide [Lasix] 40 mg PO DAILY #30 tab Isosorbide Mononitrate [Imdur] 60 mg PO DAILY #30 tab Pravastatin [Pravachol] 40 mg PO QHS #30 tab Carvedilol [Coreg (Beta Pedro)] 6.25 mg PO BID #60 tab Pantoprazole Sodium [Protonix] 40 mg PO BID #60 tab Other Amb Orders: Basic Metabolic Profile (BMP) Time Frame: 3 Days, Location: Laboratory Primary Care Physician: Prasad Concepcion III, MD [Primary Care Provider] - Please follow up with your Primary Care Physician in: 1 Week Please Follow Up With: Patrick Vigil MD When: 1-2 Weeks Disposition: Home Minutes spent on discharge:: 35 Patient Condition:: Stable Medical Necessity - Tobacco Use Smoking Status: Former smoker Tobacco Use: Non-smoker Meaningful Use Info Meaningful Use Diagnoses (Choose all that apply): None applicable
[2017-09-01] MEDS: Venlafaxine XR 150 MG Capsule PO (10:10)
[2017-09-01] MEDS: Pantoprazole Sodium 40 MG Tablet PO (10:11)
[2017-09-01] MEDS: Aspirin 81 MG TAB.CHEW PO (10:17)
[2017-09-01] MEDS: Furosemide 40 MG Tablet PO (10:17)
[2017-09-01] MEDS: Carvedilol 6.25 MG Tablet PO (10:17)
[2017-09-01 10:21] LABS: Bedside Glucose 117 mg/dL (70-110)
--- NOTE | 2017-09-01 12:41 | PCM.PN.CARD ---
Subjectve: Patient feels much better this morning, no chest pain symptoms. Stress echo yesterday was negative for inducible ischemia superimposed upon baseline dago-septal wall hypokinesis with an overall moderate LV dysfunction and an EF around 45%. Blood pressure much better controlled overnight. Objective: Vital Signs Temp Pulse Resp BP Pulse Ox 97.8 F 80 18 165/90 H 97 09/01/17 08:42 09/01/17 08:42 09/01/17 08:42 09/01/17 08:42 09/01/17 08:42 Oxygen Delivery Method Room Air Weight: 170 lb 6.677 oz Body Mass Index (BMI) 26.6 Intake and Output for Last 24 Hours 08/30/17 08/31/17 09/01/17 23:59 23:59 23:59 Intake Total 520 / 520 0 / 0 Output Total 100 / 100 Balance 420 / 420 0 / 0 General: Awake, Alert, Oriented x 3 HEENT: PERRL, EOMI, Sclera Non Icteric Neck: Supple, Good ROM, No Lymph Node Enlargement Lungs: Clear to auscultation Cardiovascular: Regular Rhythm, Normal S1, Normal S2, No Murmurs, No Rubs, No Gallops Vascular: No Carotid Bruits, Normal Femoral Pulses, Normal Radial Pulses, Normal Dorsalis Pedal Pulse, Normal Posterior Tibial Pulses Abdomen: Bowel Sounds Present, Soft, Non Tender, No HSM, No Organomegaly Extremities: No Cyanosis, No Clubbing, No edema Neurological: No Focal Motor or Sensory Deficit 09/01/17 00:55: Sodium 139, Potassium 4.0, Chloride 110 H, Carbon Dioxide 21.0, Anion Gap 8, BUN 51 H, Creatinine 3.14 H, Est GFR (MDRD) Af Amer 25 L, Est GFR (MDRD) Non-Af 21 L, BUN/Creatinine Ratio 16.2, Glucose 80, Calcium 8.5, Triglycerides 229 H, Cholesterol 209 H, LDL Cholesterol 126, VLDL Cholesterol 46 H, HDL Cholesterol 37 L 09/01/17 00:55: WBC 7.7, RBC 3.30 L, Hgb 10.4 L, Hct 31.1 L, MCV 94.2 H, MCH 31.5, MCHC 33.4, RDW 14.1, RDW Differential 46.2 H, Plt Count 191, MPV 11.4 09/01/17 00:55: Magnesium 2.1, Troponin I 0.027 09/01/17 04:17: Troponin I 0.025 09/01/17 06:50: Troponin I 0.015 Rhythm: EKG: ECHO: Stress Test: Cardiac Cath: PCI: CT Surgery: Holter monitor: EPS: PPM: CXR: Chest CT Scan: Medical Necessity - Tobacco Use Smoking Status: Former smoker Tobacco Use: Non-smoker Assessment/Plan 1. Coronary artery disease: The patient presented with somewhat atypical chest pain with recumbency, improved with sitting forward, however does appear to get better with sublingual nitroglycerin and IV nitroglycerin drip. My suspicion is that he has significant hypertension induced chest pain, due to poorly controlled blood pressure. Nonetheless he has an extensive cardiac history having three-vessel bypass surgery about 11 years ago followed by subsequent angioplasty and stenting of unknown vessels in 2013. I requested that the old records from his bypass surgery as well as a subsequent angioplasty be obtained from Dr. Villeda's office. Patient is ruled out for myocardial infarction. I recommended that we change his metoprolol to Coreg 6.25 mg p.o. twice daily for better blood pressure control, start the patient on Imdur 60 mg p.o. daily. The patient underwent a 2D echo with Doppler yesterday which showed moderate LV dysfunction with anterior hypokinesis consistent with previous myocardial infarction. His overall ejection fraction was 45%. He then underwent a walking stress echocardiogram which was negative for inducible ischemia. He had no additional wall motion abnormalities. At this point I recommend the patient be treated with baby aspirin, Plavix, Coreg 6.25 mg p.o. twice daily to be titrated up for afterload reduction as well as Imdur 60 mg a day. Recommend continuing Lasix 40 mg p.o. daily, and discontinuation of Cozaar given his chronic renal insufficiency with a creatinine between 2.9 and 3.1. We can titrate up his M door to assist with hypertension. If the patient has recurrent chest pain symptoms in the face of normal blood pressure, I would have a low threshold for repeat catheterization and graft angiography. I spoke with his primary bus cleaner Dr. Sourav Villeda last evening on 08/31/17 and explained the patient's presentation, cardiac workup and recommended plan for his care. The patient will follow-up with Dr. Villeda going forward in the near future. 2. Hyperlipidemia: Given the patient's diabetes and extensive coronary disease he requires aggressive LDL reduction. His LDL is 126 and HDL is 37. Would recommend switching from Pravachol to Crestor 10 mg p.o. nightly and repeating lipid profile in 6 weeks time. 3. Chronic renal insufficiency: The patient require IV fluid preprocedure if he were to require a left heart catheterization. Current creatinine is 2.9. 4. Thank you very much for the opportunity to participate in the cardiac care of your patient. Patient will be discharged home today. Code Visit Inpatient E&M: 46628 Subs Hosp L2
--- NOTE | 2017-09-01 12:46 | PN.CARD_ITS ---
Subjectve: Patient feels much better this morning, no chest pain symptoms. Stress echo yesterday was negative for inducible ischemia superimposed upon baseline dago- septal wall hypokinesis with an overall moderate LV dysfunction and an EF around 45%. Blood pressure much better controlled overnight. Objective: Vital Signs Temp Pulse Resp BP Pulse Ox 97.8 F 80 18 165/90 H 97 09/01/17 08:42 09/01/17 08:42 09/01/17 08:42 09/01/17 08:42 09/01/17 08:42 Oxygen Delivery Method Room Air Weight: 170 lb 6.677 oz Body Mass Index (BMI) 26.6 Intake and Output for Last 24 Hours 08/30/17 08/31/17 09/01/17 23:59 23:59 23:59 Intake Total 520 / 520 0 / 0 Output Total 100 / 100 Balance 420 / 420 0 / 0 General: Awake, Alert, Oriented x 3 HEENT: PERRL, EOMI, Sclera Non Icteric Neck: Supple, Good ROM, No Lymph Node Enlargement Lungs: Clear to auscultation Cardiovascular: Regular Rhythm, Normal S1, Normal S2, No Murmurs, No Rubs, No Gallops Vascular: No Carotid Bruits, Normal Femoral Pulses, Normal Radial Pulses, Normal Dorsalis Pedal Pulse, Normal Posterior Tibial Pulses Abdomen: Bowel Sounds Present, Soft, Non Tender, No HSM, No Organomegaly Extremities: No Cyanosis, No Clubbing, No edema Neurological: No Focal Motor or Sensory Deficit 09/01/17 00:55: Sodium 139, Potassium 4.0, Chloride 110 H, Carbon Dioxide 21.0, Anion Gap 8, BUN 51 H, Creatinine 3.14 H, Est GFR (MDRD) Af Amer 25 L, Est GFR ( MDRD) Non-Af 21 L, BUN/Creatinine Ratio 16.2, Glucose 80, Calcium 8.5, Triglycerides 229 H, Cholesterol 209 H, LDL Cholesterol 126, VLDL Cholesterol 46 H, HDL Cholesterol 37 L 09/01/17 00:55: WBC 7.7, RBC 3.30 L, Hgb 10.4 L, Hct 31.1 L, MCV 94.2 H, MCH 31.5, MCHC 33.4, RDW 14.1, RDW Differential 46.2 H, Plt Count 191, MPV 11.4 09/01/17 00:55: Magnesium 2.1, Troponin I 0.027 09/01/17 04:17: Troponin I 0.025 09/01/17 06:50: Troponin I 0.015 Rhythm: EKG: ECHO: Stress Test: Cardiac Cath: PCI: CT Surgery: Holter monitor: EPS: PPM: CXR: Chest CT Scan: Medical Necessity - Tobacco Use Smoking Status: Former smoker Tobacco Use: Non-smoker Assessment/Plan 1. Coronary artery disease: The patient presented with somewhat atypical chest pain with recumbency, improved with sitting forward, however does appear to get better with sublingual nitroglycerin and IV nitroglycerin drip. My suspicion is that he has significant hypertension induced chest pain, due to poorly controlled blood pressure. Nonetheless he has an extensive cardiac history having three-vessel bypass surgery about 11 years ago followed by subsequent angioplasty and stenting of unknown vessels in 2013. I requested that the old records from his bypass surgery as well as a subsequent angioplasty be obtained from Dr. Villeda's office. Patient is ruled out for myocardial infarction. I recommended that we change his metoprolol to Coreg 6.25 mg p.o. twice daily for better blood pressure control, start the patient on Imdur 60 mg p.o. daily. The patient underwent a 2D echo with Doppler yesterday which showed moderate LV dysfunction with anterior hypokinesis consistent with previous myocardial infarction. His overall ejection fraction was 45%. He then underwent a walking stress echocardiogram which was negative for inducible ischemia. He had no additional wall motion abnormalities. At this point I recommend the patient be treated with baby aspirin, Plavix, Coreg 6.25 mg p.o. twice daily to be titrated up for afterload reduction as well as Imdur 60 mg a day. Recommend continuing Lasix 40 mg p.o. daily, and discontinuation of Cozaar given his chronic renal insufficiency with a creatinine between 2.9 and 3.1. We can titrate up his M door to assist with hypertension. If the patient has recurrent chest pain symptoms in the face of normal blood pressure, I would have a low threshold for repeat catheterization and graft angiography. I spoke with his primary biscuit machine operator Dr. Sourav Villeda last evening on 08/31/17 and explained the patient's presentation, cardiac workup and recommended plan for his care. The patient will follow-up with Dr. Villeda going forward in the near future. 2. Hyperlipidemia: Given the patient's diabetes and extensive coronary disease he requires aggressive LDL reduction. His LDL is 126 and HDL is 37. Would recommend switching from Pravachol to Crestor 10 mg p.o. nightly and repeating lipid profile in 6 weeks time. 3. Chronic renal insufficiency: The patient require IV fluid preprocedure if he were to require a left heart catheterization. Current creatinine is 2.9. 4. Thank you very much for the opportunity to participate in the cardiac care of your patient. Patient will be discharged home today. Code Visit Inpatient E&M: 90263 Subs Hosp L2
== END 2017-09-01 11:10 | disposition home or self-care (01) ==
LOC: ED 04:37 → PCU 06:22
PROVIDERS: Internal Medicine Cardiovascular Disease; Nurse Practitioner Family; Admitting Provider Hospitalist; Emergency Provider Emergency Medicine; Family Provider Family Medicine; PCP Family Medicine; Visit Provider Family Medicine
DX: R07.89 Other chest pain (principal); E11.22 Type 2 diabetes mellitus with diabetic chronic kidney disease; I25.10 Atherosclerotic heart disease of native coronary artery without angina pectoris; I12.9 Hypertensive chronic kidney disease with stage 1 through stage 4 chronic kidney disease, or unspecified chronic kidney disease; N18.3 Chronic kidney disease, stage 3 (moderate); I44.7 Left bundle-branch block, unspecified; E78.5 Hyperlipidemia, unspecified; M10.9 Gout, unspecified; I08.3 Combined rheumatic disorders of mitral, aortic and tricuspid valves; N18.4 Chronic kidney disease, stage 4 (severe); F41.9 Anxiety disorder, unspecified; F32.9 Major depressive disorder, single episode, unspecified; K21.9 Gastro-esophageal reflux disease without esophagitis; Z95.1 Presence of aortocoronary bypass graft; Z86.711 Personal history of pulmonary embolism; Z79.899 Other long term (current) drug therapy; Z79.02 Long term (current) use of antithrombotics/antiplatelets; Z79.4 Long term (current) use of insulin; Z57.4 Occupational exposure to toxic agents in agriculture; Z87.891 Personal history of nicotine dependence; Z93.3 Colostomy status; I25.2 Old myocardial infarction; F43.10 Post-traumatic stress disorder, unspecified
CPT/HCPCS: 36415; 71046; 80048; 80061; 82962; 83735; 84484; 85025; 85027; 93005; 93017; 93306; 93350; 96365; 96366; 96372; 96375; 99218; 99251; 99285; A4216; G0378; G0463

== ENCOUNTER → 2017-09-04 08:36 | Outpatient (CLI) | payer MEDICARE, SELFPAY ==
[2017-09-04 09:30] LABS: Anion Gap 12 (5-15); BUN 66 mg/dL (7-18); BUN/Creat Ratio 18.2 RATIO (10-20); Calcium,Total 9.4 mg/dL (8.5-10.1); Chloride 101 mmol/L (98-107); Creatinine, Serum 3.63 mg/dL (0.70-1.30); EST Glomerular Filtration Rate 18 mL/min (>60); Est Glom Filt Rate - Afr Amer 21 mL/min (>60); Glucose 179 mg/dL (74-106); Potassium 4.6 mmol/L (3.5-5.1); Sodium Level 138 mmol/L (136-145)
== END ==
PROVIDERS: Family Provider Family Medicine; PCP Family Medicine; Visit Provider Nurse Practitioner Family
DX: N18.4 Chronic kidney disease, stage 4 (severe) (principal)
CPT/HCPCS: 36415; 80048

== ENCOUNTER 2017-09-04 22:42 | Inpatient (IN) | payer MEDICARE, SELFPAY ==
[2017-09-04 22:43] VITALS: BP 164/100; PULSE 116; RESP 20; TEMP 36.8; O2SAT 97; BMI 27.7
--- NOTE | 2017-09-04 22:43 | ED.RN ---
CALLED FOR EKG PER RN REQUEST, PULLED OLD EKG'S FOR
--- NOTE | 2017-09-04 22:56 | EKG12_ITS ---
Test Reason : CP Blood Pressure : / mmHG Vent. Rate : 110 BPM Atrial Rate : 110 BPM P-R Int : 168 ms QRS Dur : 146 ms QT Int : 382 ms P-R-T Axes : 027 -17 116 degrees QTc Int : 516 ms Sinus tachycardia with occasional Premature ventricular complexes Left bundle branch block Abnormal ECG Confirmed by RODRICK CABRERA, ALAINA ([id number]), order editor TEA BATISTA ([id number]) on 09/08/2017 1:13:49 PM Referred By: Kavita Hinojosa Confirmed By:ALAINA MENSAH MD
--- NOTE | 2017-09-04 22:57 | ED.VISSUMM ---
- ER Visit Summary Date of Service: 09/04/17 Chief Complaint: [] Chest pain and upper middle back pain History of Present Illness: The patient is a 72 M [] presents with chest discomfort and upper middle back pain. He is been experiencing this for the last 10 days. Gradual onset intermittent. Worse with night mostly. Occasionally he gets it during the day. It is a burning sensation. Currently it is gone. He took one nitroglycerin at home before calling the paramedics. EMS gave 1 nitroglycerin and aspirin as well. He is on Plavix. No associated symptoms. He has a history of 3 stents and a CABG remotely. He recently was admitted 3 days ago and had a negative stress echo and enzymes. He was monitored. He was discharged as well. Physical Examination: [] Vital signs reviewed General: Well-nourished well-developed Head: Normocephalic atraumatic Eyes: Pupils equal round and reactive to light extraocular movements intact ENT: TMs clear no hemotympanum no trauma Neck: Nontender full range of motion Cardiovascular: Regular rate rhythm no murmurs normal S1-S2 Respiratory: No distress clear to auscultation bilaterally chest nontender Abdomen: Soft nontender nondistended normal bowel sounds no masses Back: Nontender no CVA tenderness Extremities: Nontender active range of motion ?4 extremities no trauma Skin: Normal color no trauma Neuro alert oriented cranial nerves II through XII intact normal strength sensation reflexes Test Results: [] Emergency Department Course and Treatment: [] EKG shows sinus rate at a rate of 110. Positive PVC x2. Old left bundle branch block. Patient is pain-free. Chest x-ray and lab work obtained. Chest x-ray shows nothing acute. Lab work shows troponin 0 0.02. Creatinine 3.9 relatively unchanged from previous. Patient remains pain-free here. I read Dr. Barnard's cardiology note who recommends low threshold for repeat heart cath pain which the patient is having. Discussed with the hospitalist and the patient will be admitted for further cardiac evaluation is likely repeat heart cath. Treatment Plan: [] Disposition: [] Impression: [] Chest pain Mid back pain Chronic kidney disease This note was generated with [employer] software. It may contain incorrect words, spelling, and punctuation that were not noted in review of the chart prior to signing ED Disposition - Plan for ED Patient: Chief Complaint: Chest Pain Referrals: Praasd Concepcion III, MD [Primary Care Provider] -
[2017-09-04 23:02] VITALS: O2SAT 97
--- NOTE | 2017-09-04 23:11 | RAD_ITS ---
STUDY: X-RAY CHEST REASON FOR EXAM: Male, 72 years old. Chest pain TECHNIQUE: Frontal and lateral views of the chest. COMPARISON: 08/31/2017 FINDINGS: The lungs are clear and expanded. There is no demonstrated pleural abnormality. Sternal cerclage wires and vascular clips are present from a prior sternotomy and coronary artery bypass graft procedure (CABG). Normal mediastinum and giovanni. Normal visualized pulmonary arteries. Normal visualized aortic arch and descending thoracic aorta. There is a dextroscoliosis of the thoracic spine. The visualized bones and joints show degenerative changes. There is no demonstrated abnormality of the visualized soft tissue structures of the upper abdomen. RAD/Chest PA and Lateral IMPRESSION: No evidence for acute chest disease. Electronically Signed: Karson Stephens MD at 23:29 EDT , Service support ,
[2017-09-04 23:13] LABS: Absolute Lymphocyte Count 1.74 X10^3/ul (0.83-4.51); Absolute Neutrophil Count 5.6 X10^3/uL (2.0-7.7); Basophil# 0.05 X10^3/uL; Basophil% 0.6 % (0-1); Eosinophils% 12.9 % (0-5); Hematocrit 33.6 % (40-54); Hemoglobin 11.2 g/dl (13.0-16.5); Lymphocyte # 1.74 X10^3/ul (4.0); Lymphocyte % 20.4 % (19-41); Mean Corp Hgb Conc 33.3 g/gl (32-36); Mean Corpuscular Hgb 30.9 pg (27.0-32.0); Mean Corpuscular Volume 92.6 fL (80-94); Mean Platelet Vol. 10.8 fl (6.2-12.0); Monocyte# 0.05 X10^3/uL; Monocyte% 0.6 % (0-10); Neutrophil # 5.57 X10^3/uL (2.7-7.7); Neutrophil % 65.5 % (47-70); POSITIVE COUNT NO; POSITIVE DIFFERENTIAL NO; POSITIVE MORPHOLOGY NO; Platelet Count 187 K/mm3 (150-450); RBC Distribution Width CV 14.1 % (11.6-14.6); RBC Distribution Width SD 47.3 fl (35.1-43.9); Red Blood Count 3.63 M/mm3 (4.6-6.2); White Blood Count 8.5 K/mm3 (4.4-11.0)
[2017-09-04 23:28] LABS: Anion Gap 10 (5-15); BUN 73 mg/dL (7-18); BUN/Creat Ratio 18.6 RATIO (10-20); Calcium,Total 9.2 mg/dL (8.5-10.1); Chloride 102 mmol/L (98-107); Creatinine, Serum 3.92 mg/dL (0.70-1.30); EST Glomerular Filtration Rate 16 mL/min (>60); Est Glom Filt Rate - Afr Amer 20 mL/min (>60); Estimated Creatinine Clearance 15.69 ml/min; Glucose 202 mg/dL (74-106); Potassium 4.2 mmol/L (3.5-5.1); Sodium Level 135 mmol/L (136-145)
--- NOTE | 2017-09-04 23:57 | PCM.HP.STD ---
Problem List (1) Chest pain Status: Acute Qualifiers: Chest pain type: chest pain due to myocardial ischemia History of Present Illness Date of Admission: 09/05/17 Chief Complaint: cp The patient is a 72 year old M [] 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) Allergies atorvastatin calcium [From Lipitor] Allergy (Verified 09/04/17 22:47) Pain in joints verapamil [From Covera-HS] Allergy (Verified 09/04/17 22:47) passes out lisinopril Adverse Reaction (Verified 09/04/17 22:47) Other muscle pain Niacin Preparations Adverse Reaction (Verified 09/04/17 22:47) Pain in joints Home Medications: Ambulatory Orders Medication Instructions Recorded Allopurinol [Zyloprim] 300 mg PO DAILY 12/02/13 Mirtazapine [Remeron] 15 mg PO QHS 12/02/13 Doxazosin Mesylate [Cardura] 2 mg PO QHS 01/30/15 Insulin Glargine,Hum.rec.anlog 14 unit SQ BREAKFAST 08/20/15 [Lantus] Venlafaxine XR [Effexor Xr] 150 mg PO DAILY 10/06/15 Clopidogrel Bisulfate [Plavix] 75 mg PO DAILY #0 12/04/15 Amlodipine [Norvasc] 1 tab PO DAILY 08/31/17 Potassium Chloride 1 tab PO DAILY 08/31/17 Aspirin [Aspirin, Baby] 81 mg PO DAILY@0800 #30 tab.chew 09/01/17 Carvedilol [Coreg (Beta Pedro)] 6.25 mg PO BID #60 tab 09/01/17 Furosemide [Lasix] 40 mg PO DAILY #30 tab 09/01/17 Isosorbide Mononitrate [Imdur] 60 mg PO DAILY #30 tab 09/01/17 Pantoprazole Sodium [Protonix] 40 mg PO BID #60 tab 09/01/17 Pravastatin [Pravachol] 40 mg PO QHS #30 tab 09/01/17 Surgical History: appendectomy, coronary bypass surgery, herniorrhaphy, - - History of ruptured bowel status post colostomy. 2 coronary artery stents. Psychiatric History: - - PTSD Smoking Status: Former smoker - *Family History Sibling History Items: Diabetes, Heart Disease Review of Systems Constitutional: Denies: Chills, Fever, Weight Change HEENT: Denies: Head Aches, Sinus Congestion, Sinus Drainage Cardiovascular: Denies: Chest Pain, Palpitations Respiratory: Denies: Cough, Shortness of breath at rest, Sputum production Gastrointestinal: Denies: Abdominal Pain, Nausea, Vomiting Genitourinary: Denies: Dysuria Musculoskeletal: Denies: Joint Pain, Joint Tenderness Skin: Denies: Rash, Wounds Neurological: Denies: Numbness, Tingling, Focal weakness Psychiatric: Denies: Anxiety, Depression, Homicidal Ideations, Suicidal Ideations Hematologic/ Lymphatic: Denies: Easy Bruising, Easy Bleeding VTE Information - Inpt Only VTE Present on Admission: No VTE Mechan Device Prophylaxis: None VTE Pharm Prophylaxis ordered?: Yes - Physical Exam Vital Signs Temp Pulse Resp BP Pulse Ox 98.2 F 116 H 20 H 164/100 H 97 09/04/17 22:43 09/04/17 22:43 09/04/17 22:43 09/04/17 22:43 09/04/17 23:02 Oxygen Delivery Method Room Air Weight: 177 lb 0.499 oz Body Mass Index (BMI) 27.7 Laboratory Tests Past 24 Hrs 09/04/17 09/04/17 23:00 23:00 WBC 8.5 RBC 3.63 L Hgb 11.2 L Hct 33.6 L MCV 92.6 MCH 30.9 MCHC 33.3 RDW 14.1 RDW Differential 47.3 H Plt Count 187 MPV 10.8 Immature Gran % (Auto) 0.000 Neut % (Auto) 65.5 Lymph % (Auto) 20.4 [place] % (Auto) 0.6 Eos % (Auto) 12.9 H Baso % (Auto) 0.6 Absolute Neuts (auto) 5.6 Absolute Lymphs (auto) 1.74 Total Counted Not Reportable Sodium 135 L Potassium 4.2 Chloride 102 Carbon Dioxide 23.0 Anion Gap 10 BUN 73 H Creatinine 3.92 H Estim Creat Clear Calc 15.69 Est GFR (MDRD) Af Amer 20 L Est GFR (MDRD) Non-Af 16 L BUN/Creatinine Ratio 18.6 Glucose 202 H Calcium 9.2 Troponin I 0.025 Assessment/Plan All Active Problems Chest pain (Acute) see other h+P from 09/05
[2017-09-05] VITALS (45 sets, daily range): BP systolic 138–195; BP diastolic 74–122; PULSE 89–114; RESP 13–21; TEMP 36.6–37; O2SAT 86–100; BMI 26.1
--- NOTE | 2017-09-05 00:12 | PCM.HP.STD ---
Problem List (1) Chest pain Status: Acute Qualifiers: Chest pain type: chest pain due to myocardial ischemia (2) DM2 (diabetes mellitus, type 2) Status: Chronic Qualifiers: Diabetes mellitus moth exterminator insulin use: with moth exterminator use Diabetes mellitus complication status: with kidney complications Diabetes mellitus complication detail: with chronic kidney disease Chronic kidney disease stage: stage 4 (severe) Qualified Code(s): E11.22 - Type 2 diabetes mellitus with diabetic chronic kidney disease (3) CKD (chronic kidney disease), stage IV Status: Chronic (4) History of pulmonary embolism Status: Chronic Comment: Provoked (5) History of coronary artery disease Status: Chronic (6) History of hypertension Status: Chronic (7) History of hyperlipidemia Status: Chronic (8) History of gout Status: Chronic (9) 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 The pain began this evening while he was doing some things around the house and walking. The pain was sharp in mid back and radiated to the front of his chest. He denies feeling short of breath. The pain was relieved with nitroglycerin. He had a negative stress test at last hospitalization and per cardiology report if the pain returned he would get a heart catheterization. He is currently pain free. 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) Allergies atorvastatin calcium [From Lipitor] Allergy (Verified 09/04/17 22:47) Pain in joints verapamil [From Covera-HS] Allergy (Verified 09/04/17 22:47) passes out lisinopril Adverse Reaction (Verified 09/04/17 22:47) Other muscle pain Niacin Preparations Adverse Reaction (Verified 09/04/17 22:47) Pain in joints Home Medications: Ambulatory Orders Medication Instructions Recorded Allopurinol [Zyloprim] 300 mg PO DAILY 12/02/13 Mirtazapine [Remeron] 15 mg PO QHS 12/02/13 Doxazosin Mesylate [Cardura] 2 mg PO QHS 01/30/15 Insulin Glargine,Hum.rec.anlog 14 unit SQ BREAKFAST 08/20/15 [Lantus] Venlafaxine XR [Effexor Xr] 150 mg PO DAILY 10/06/15 Clopidogrel Bisulfate [Plavix] 75 mg PO DAILY #0 12/04/15 Amlodipine [Norvasc] 1 tab PO DAILY 08/31/17 Potassium Chloride 1 tab PO DAILY 08/31/17 Aspirin [Aspirin, Baby] 81 mg PO DAILY@0800 #30 tab.chew 09/01/17 Carvedilol [Coreg (Beta Pedro)] 6.25 mg PO BID #60 tab 09/01/17 Furosemide [Lasix] 40 mg PO DAILY #30 tab 09/01/17 Isosorbide Mononitrate [Imdur] 60 mg PO DAILY #30 tab 09/01/17 Pantoprazole Sodium [Protonix] 40 mg PO BID #60 tab 09/01/17 Pravastatin [Pravachol] 40 mg PO QHS #30 tab 09/01/17 Surgical History: appendectomy, coronary bypass surgery, herniorrhaphy, - - History of ruptured bowel status post colostomy. 2 coronary artery stents. Psychiatric History: - - PTSD Smoking Status: Former smoker - *Family History Sibling History Items: Diabetes, Heart Disease Review of Systems Constitutional: Denies: Chills, Fever, Weight Change HEENT: Denies: Head Aches, Sinus Congestion, Sinus Drainage Cardiovascular: Reports: Chest Pain. Denies: Palpitations Respiratory: Denies: Cough, Shortness of breath at rest, Sputum production Gastrointestinal: Denies: Abdominal Pain, Nausea, Vomiting Genitourinary: Denies: Dysuria Musculoskeletal: Denies: Joint Pain, Joint Tenderness Skin: Denies: Rash, Wounds Neurological: Denies: Numbness, Tingling, Focal weakness Psychiatric: Denies: Anxiety, Depression, Homicidal Ideations, Suicidal Ideations Hematologic/ Lymphatic: Denies: Easy Bruising, Easy Bleeding VTE Information - Inpt Only VTE Present on Admission: No VTE Mechan Device Prophylaxis: SCD's VTE Pharm Prophylaxis ordered?: No - Physical Exam General: Alert, Oriented x3, Cooperative HEENT: Atraumatic, Normocephalic Neck: Supple, Negative Carotid Bruits Lungs: Clear to auscultation, Normal air movement Cardiovascular: Regular rate, Regular Rhythm, Normal S1, Normal S2, No murmurs Abdomen: Bowel Sounds Present, Soft, Non Tender Extremities: No edema, Capillary Refill Less than 3 Seconds Skin: No rashes, No breakdown Musculoskeletal: No Tenderness to Palpation of Joints or Extremities Neurological: Neuro grossly intact Psych/Mental Status: Normal Affect, Appropriate Vital Signs Temp Pulse Resp BP Pulse Ox 98.2 F 116 H 20 H 164/100 H 97 09/04/17 22:43 09/04/17 22:43 09/04/17 22:43 09/04/17 22:43 09/04/17 23:02 Oxygen Delivery Method Room Air Weight: 177 lb 0.499 oz Body Mass Index (BMI) 27.7 Laboratory Tests Past 24 Hrs 09/04/17 09/04/17 23:00 23:00 WBC 8.5 RBC 3.63 L Hgb 11.2 L Hct 33.6 L MCV 92.6 MCH 30.9 MCHC 33.3 RDW 14.1 RDW Differential 47.3 H Plt Count 187 MPV 10.8 Immature Gran % (Auto) 0.000 Neut % (Auto) 65.5 Lymph % (Auto) 20.4 [place] % (Auto) 0.6 Eos % (Auto) 12.9 H Baso % (Auto) 0.6 Absolute Neuts (auto) 5.6 Absolute Lymphs (auto) 1.74 Total Counted Not Reportable Sodium 135 L Potassium 4.2 Chloride 102 Carbon Dioxide 23.0 Anion Gap 10 BUN 73 H Creatinine 3.92 H Estim Creat Clear Calc 15.69 Est GFR (MDRD) Af Amer 20 L Est GFR (MDRD) Non-Af 16 L BUN/Creatinine Ratio 18.6 Glucose 202 H Calcium 9.2 Troponin I 0.025 Assessment/Plan All Active Problems Chest pain (Acute) Chronic Problems DM2 (diabetes mellitus, type 2) (Chronic) CKD (chronic kidney disease), stage IV (Chronic) History of pulmonary embolism (Chronic) Provoked History of coronary artery disease (Chronic) CKD (chronic kidney disease), stage III (Chronic) History of hypertension (Chronic) History of hyperlipidemia (Chronic) History of gout (Chronic) 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) Plan - admit to progressive care unit - consult cardiology - NPO pending heart cath - will need aggressive hydration to reduce contrast nephropathy - cycle cardiac markers - morphine, oxygen, nitro and aspirin per routine chest pain protocol - cbc, bmp in am - IV normal saline at 150 cc/hour - scds for DVT prophylaxis - hydralazine 20mg IV q 6hrs prn hypertension bp >160/100 - hold routine medications while NPO Code Visit Inpatient E&M: 51540 Init Hosp L3
--- NOTE | 2017-09-05 00:51 | NURSING ---
Called ED clinical trial assistant, Erica at this time to confirm Pt okay to come to PCU.
[2017-09-05] MEDS: 0.9% NaCl Peripheral Flush Adult/Peds IV (02:05)
[2017-09-05] MEDS: 0.9% Normal Saline 1,000 ML 150 ML IV ×4 (02:05→23:27)
[2017-09-05] MEDS: Morphine 2 MG/ML Syringe 1 MG IV (03:24)
--- NOTE | 2017-09-05 03:52 | EKG12_ITS ---
Test Reason : CP REPEAT Blood Pressure : / mmHG Vent. Rate : 087 BPM Atrial Rate : 087 BPM P-R Int : 190 ms QRS Dur : 150 ms QT Int : 430 ms P-R-T Axes : 065 -04 129 degrees QTc Int : 517 ms Sinus rhythm with occasional Premature ventricular complexes Left bundle branch block Abnormal ECG When compared with ECG of 31-AUG-2017 05:27, Fusion complexes are no longer Present Premature ventricular complexes are now Present Confirmed by LORRI SANFORD ([id number]), commissioning editor TEA BATISTA ([id number]) on 09/07/2017 12:36:46 PM Referred By: Kavita Hinojosa Confirmed By:LORRI SANFORD
--- NOTE | 2017-09-05 04:02 | EKG12_ITS ---
Test Reason : CP Blood Pressure : / mmHG Vent. Rate : 089 BPM Atrial Rate : 089 BPM P-R Int : 180 ms QRS Dur : 150 ms QT Int : 434 ms P-R-T Axes : 049 -20 118 degrees QTc Int : 528 ms Sinus rhythm with Premature atrial complexes Left bundle branch block Abnormal ECG When compared with ECG of 05-SEP-2017 01:46, MANUAL COMPARISON REQUIRED, DATA IS UNCONFIRMED Confirmed by LORRI SANFORD ([id number]), script editor TEA BATISTA ([id number]) on 09/07/2017 12:37:28 PM Referred By: Kavita Hinojosa Confirmed By:LORRI SANFORD
[2017-09-05] MEDS: Nitroglycerin Oint 1 INCH PACKET 0.5 INCH TRANSDERM. ×3 (05:13→16:45)
[2017-09-05 05:26] LABS: Bedside Glucose 157 mg/dL (70-110)
[2017-09-05 05:30] LABS: International Normalized Ratio 1.1
[2017-09-05 05:34] LABS: AST(SGOT) 17 U/L (15-37); Alanine Aminotransfer ALT/SGPT 23 U/L (16-61); Albumin, Serum 3.5 g/dL (3.2-5.0); Alkaline Phosphatase 77 U/L (45-117); Anion Gap 12 (5-15); BUN 71 mg/dL (7-18); BUN/Creat Ratio 19.8 RATIO (10-20); Calcium,Total 8.7 mg/dL (8.5-10.1); Chloride 107 mmol/L (98-107); Creatinine, Serum 3.59 mg/dL (0.70-1.30); EST Glomerular Filtration Rate 18 mL/min (>60); Est Glom Filt Rate - Afr Amer 22 mL/min (>60); Estimated Creatinine Clearance 17.13 ml/min; Globulin 3.5 g/dL (2.2-4.2); Glucose 159 mg/dL (74-106); Sodium Level 141 mmol/L (136-145)
--- NOTE | 2017-09-05 09:01 | CT_ITS ---
STUDY: CT CHEST WITHOUT CONTRAST REASON FOR EXAM: Male, 72 years old. Upper back pain between the shoulders. Possible aneurysm RADIATION DOSAGE (If Supplied By Facility): CTDIvol = ( 14.62 ) mGy, DLP = ( 518.76 ) mGycm TECHNIQUE: Transaxial imaging was performed without the administration of intravenous contrast material. Individualized dose optimization techniques were used for this CT. COMPARISON: None. FINDINGS: Grossly unremarkable unenhanced thyroid. Lungs are adequately inflated with bibasilar atelectasis. No acute airspace disease. There is no demonstrated pleural abnormality. There is borderline cardiomegaly. Normal pericardium. Mild coronary artery disease. Sternal wires are noted. No suspicious lymphadenopathy. Calcified subcarinal lymph node. Normal hilar regions. Normal unenhanced pulmonary arteries. Normal aorta arch and descending thoracic aorta. There are multi-level degenerative changes of the thoracic spine. Dextroscoliosis of the thoracic spine. There is no demonstrated abnormality of the visualized upper abdomen. CT/Chest without Contrast IMPRESSION: 1. Lungs are adequately inflated and clear. 2. No evidence of thoracic aortic aneurysm 3. Dextroscoliosis of the thoracic spine Electronically Signed: Saud Juarez DO at 10:57 EDT Tel , Service support ,
--- NOTE | 2017-09-05 09:01 | CT_ITS ---
STUDY: CT THORACIC SPINE WITHOUT CONTRAST REASON FOR EXAM: Male, 72 years old. Upper back pain between the shoulders RADIATION DOSAGE (If Supplied By Facility): CTDIvol = ( 21.83 ) mGy, DLP = ( 815.37 ) mGycm TECHNIQUE: The patient was scanned in a multi detector CT scanner. High resolution imaging was performed. Images were obtained from C6 to L1. Sagittal and coronal images were reconstructed. Individualized dose optimization techniques were used for this CT. COMPARISON: CT chest performed the same time FINDINGS: There is multilevel degenerative disc disease and cervical spondylosis. Normal kyphosis of the thoracic spine. There is a dextroscoliosis of the thoracic spine. There is multilevel endplate spondylosis of the thoracic spine. There is multilevel degenerative disc disease with loss of the disc space heights. No fracture The soft tissue structures are unremarkable. CT/Spine Thoracic without Contras IMPRESSION: Degenerative changes of the thoracic spine with dextroscoliosis curvature. No acute findings Electronically Signed: Saud Juarez DO at 10:58 EDT Tel , Service support ,
--- NOTE | 2017-09-05 09:54 | CASEMGMT ---
According to [facility] website, the following are in-network tertiary facilities: [facility], [place], [facility], [place], [facility], [place], [facility], and . Tiffanie HOWARD CM
[2017-09-05 11:41] LABS: Bedside Glucose 159 mg/dL (70-110)
--- NOTE | 2017-09-05 12:26 | CASEMGMT ---
Face to Face with patient for initial transition planning/care coordination assessment. LEE BEASLEY introduced self and role at [facility], pt voices understanding and consents to assessment at this time. Pt is sitting up in bed in no distress at this time. Pt is A/O x4 at this time and answers all questions appropriately at this time. Care providers, pharmacy, and demographics verified. See attached link. Pt voices no further concerns/needs at this time. Advised pt to ask for CM if any further questions/concerns/needs arise, voices understanding. PLAN: [place]
--- NOTE | 2017-09-05 13:54 | PCM.CONS.C ---
Problem List (1) Chest pain Status: Acute Qualifiers: Chest pain type: chest pain due to myocardial ischemia (2) History of pulmonary embolism Status: Chronic Comment: Provoked (3) History of coronary artery disease Status: Chronic (4) CKD (chronic kidney disease), stage III Status: Chronic (5) History of hypertension Status: Chronic (6) History of hyperlipidemia Status: Chronic Reason for Consult Date of Consultation: 09/05/17 Reason for Consultation: Coronary artery disease, chest pain, hypertension, hypercholesterolemia History of Present Illness: The patient is a 72 year old M, patient of Dr. George with a history of hypertension, diabetes, hypercholesterolemia, coronary artery disease status post three-vessel bypass surgery at [facility] in 2006 followed by angioplasty and stenting in 2012 and 2013 of unknown vessels. In addition the patient is a history of diverticulitis status post colectomy and colostomy bag in 2006 at the time of his bypass surgery. In addition the patient has significant hypertension and was recently admitted to [facility] on 08/30/17 for hypertension induced chest pain. His troponins were negative that time, and he was placed on nitroglycerin drip and his chest pain resolved. Patient's anginal equivalent appears to be back pain with radiation between the shoulder blades. At the time of his recent admission with respect to his chronic renal insufficiency underwent a stress test which was negative for inducible ischemia. His blood pressure medications were adjusted and he was compliant with them. The patient was doing well up until the evening of his admission when he developed recurrent mid scapular back pain, similar to his angina in the past as well as significant hypertension. He sought medical attention at [facility] ER where his EKG showed normal sinus rhythm, no acute changes. Patient was given sublingual nitroglycerin and placed on nitroglycerin paste which completely resolved his symptoms overnight. His admitting creatinine was 3.92 and decreased to 3.59 with IV fluids. His initial troponin was negative and then increase to 0.69 and followed by 0.64. On 08/31/17 he underwent an echocardiogram which showed an EF of 40-45%, and an RVSP of around 25 mmHg. [] Past Medical History Allergies/Adverse Reactions: Allergies atorvastatin calcium [From Lipitor] Allergy (Verified 09/04/17 22:47) Pain in joints verapamil [From Covera-HS] Allergy (Verified 09/04/17 22:47) passes out lisinopril Adverse Reaction (Verified 09/04/17 22:47) Other muscle pain Niacin Preparations Adverse Reaction (Verified 09/04/17 22:47) Pain in joints Cholesterol Meds Adverse Reaction (Uncoded 09/05/17 01:41) Other Home Medications: Ambulatory Orders Medication Instructions Recorded Allopurinol [Zyloprim] 300 mg PO DAILY 12/02/13 Mirtazapine [Remeron] 15 mg PO QHS 12/02/13 Doxazosin Mesylate [Cardura] 2 mg PO QHS 01/30/15 Insulin Glargine,Hum.rec.anlog 14 unit SQ BREAKFAST 08/20/15 [Lantus] Venlafaxine XR [Effexor Xr] 150 mg PO DAILY 10/06/15 Clopidogrel Bisulfate [Plavix] 75 mg PO DAILY #0 12/04/15 Amlodipine [Norvasc] 1 tab PO DAILY 08/31/17 Potassium Chloride 1 tab PO DAILY 08/31/17 Aspirin [Aspirin, Baby] 81 mg PO DAILY@0800 #30 tab.chew 09/01/17 Carvedilol [Coreg (Beta Pedro)] 6.25 mg PO BID #60 tab 09/01/17 Furosemide [Lasix] 40 mg PO DAILY #30 tab 09/01/17 Isosorbide Mononitrate [Imdur] 60 mg PO DAILY #30 tab 09/01/17 Pantoprazole Sodium [Protonix] 40 mg PO BID #60 tab 09/01/17 Pravastatin [Pravachol] 40 mg PO QHS #30 tab 09/01/17 Past Medical History (Chronic Problems): Chronic Problems DM2 (diabetes mellitus, type 2) (Chronic) CKD (chronic kidney disease), stage IV (Chronic) History of pulmonary embolism (Chronic) Provoked History of coronary artery disease (Chronic) CKD (chronic kidney disease), stage III (Chronic) History of hypertension (Chronic) History of hyperlipidemia (Chronic) History of gout (Chronic) 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 2 coronary artery stents. Psychiatric History: - - PTSD - *Family History Sibling History Items: Diabetes, Heart Disease Smoking Status: Former smoker Tobacco Use: Cigarettes Review of Systems - Review of Systems General: Denies: Fever, Night Sweats, Fatigue Cardiovascular: Reports: Chest Discomfort, Chest Discomfort at Rest, Chest Tightness. Denies: Shortness of Breath, Orthopnea, PND, Peripheral Edema, Palpitations, Lightheadedness, Dizziness, Near Syncope, Syncope Respiratory: Denies: Cough, Sputum Production, Hemoptysis Gastrointestinal: Denies: Hematemesis, Hematochezia, Melena Genitourinary: Denies: Dysuria, Hematuria Skin: Denies: Rash Subjectve: Patient laying in bed, no acute distress. Objective: Vital Signs Temp Pulse Resp BP Pulse Ox 98.5 F 98 16 169/88 H 98 09/05/17 09:35 09/05/17 11:13 09/05/17 09:35 09/05/17 09:35 09/05/17 09:35 Oxygen Flow Rate (L/min) 2 Oxygen Delivery Method Room Air Weight: 166 lb 10.711 oz Body Mass Index (BMI) 26.1 Intake and Output for Last 24 Hours 09/03/17 09/04/17 09/05/17 23:59 23:59 23:59 Intake Total 988 / 988 Output Total 200 / 200 Balance 788 / 788 General: Awake, Alert, Oriented x 3 HEENT: PERRL, EOMI, Sclera Non Icteric Neck: Supple, Good ROM, No Lymph Node Enlargement Lungs: Clear to auscultation Cardiovascular: Regular Rhythm, Normal S1, Normal S2, No Murmurs, No Rubs, No Gallops Vascular: No Carotid Bruits, Normal Femoral Pulses, Normal Radial Pulses, Normal Dorsalis Pedal Pulse, Normal Posterior Tibial Pulses Abdomen: Bowel Sounds Present, Soft, Non Tender, No HSM, No Organomegaly Extremities: No Cyanosis, No Clubbing, No edema Neurological: No Focal Motor or Sensory Deficit 09/05/17 02:00: Troponin I 0.069 H 09/05/17 04:55: Sodium 141, Potassium 4.0, Chloride 107, Carbon Dioxide 22.0, Anion Gap 12, BUN 71 H, Creatinine 3.59 H, Est GFR (MDRD) Af Amer 22 L, Est GFR (MDRD) Non-Af 18 L, BUN/Creatinine Ratio 19.8, Glucose 159 H, Calcium 8.7, Total Bilirubin 0.20, Troponin I 0.064 H 09/05/17 04:55: PT 14.0, INR 1.1 Rhythm: EKG: ECHO: Stress Test: Cardiac Cath: PCI: CT Surgery: Holter monitor: EPS: PPM: CXR: Chest CT Scan: Assessment/Plan 1. Coronary artery disease: Patient returns with hypertension induced mid scapular back pain similar to his previous anginal symptoms despite medical therapy. Given the patient's cardiac history, recurrence of symptoms, I recommend that he undergo a repeat left heart catheterization with graft angiography tomorrow morning after IV fluid resuscitation. I recommended he continue baby aspirin, Plavix, restart his Coreg but increasing it to 12.5 mg p.o. twice daily given his LV dysfunction and severe hypertension. In addition we will restart his Imdur 60 mg p.o. daily and discontinue his nitroglycerin paste. In addition he is a poor candidate for KIRTI inhibitors or arms given his chronic renal insufficiency. Recommend starting hydralazine 25 mg p.o. twice daily for blood pressure control. I had a long and thorough discussion with the patient and his family both on his previous admission and on this admission with respect to his chronic renal insufficiency and risk for acute on chronic renal failure requiring possible temporary or permanent dialysis. Patient agrees to proceed. 2. Hyperlipidemia: Apparently the patient is able to tolerate Pravachol only and is unable to tolerate atorvastatin or other niacin based products. Continue Pravachol 20 mg p.o. nightly. 3. Thank you very much for the opportunity to participate in the cardiac care of your patient. Consultation time took place between 12:30 PM and 1 PM. Code Visit Inpatient E&M: [id number] Init Hosp L2
[2017-09-05 16:36] LABS: Bedside Glucose 277 mg/dL (70-110)
[2017-09-05] MEDS: Insulin Lispro 100 UNIT/ML INSULN.PEN SQ (16:45)
--- NOTE | 2017-09-05 18:23 | EKG12_ITS ---
Test Reason : CP Blood Pressure : / mmHG Vent. Rate : 114 BPM Atrial Rate : 114 BPM P-R Int : 168 ms QRS Dur : 142 ms QT Int : 388 ms P-R-T Axes : 036 010 147 degrees QTc Int : 534 ms Sinus tachycardia with frequent Premature ventricular complexes Left bundle branch block Abnormal ECG Confirmed by RODRICK CABRERA, AALINA ([id number]), editor house organ TEA BATISTA ([id number]) on 09/08/2017 1:51:30 PM Referred By: Kavita Hinojosa Confirmed By:ALAINA MENSAH MD
--- NOTE | 2017-09-05 20:05 | NURSING ---
Called Hong in Pharmacy to get titration parameters on nitroglycerin drip. Hong stated that 5 to 100 mcg/min is the range. Sheree Haney RN.
[2017-09-05] MEDS: Carvedilol 12.5 MG Tablet PO (21:10)
[2017-09-05] MEDS: hydrALAZINE 25 MG Tablet PO (21:10)
--- NOTE | 2017-09-05 21:17 | NURSING ---
Actively titrating patient Nitro drip. Patient reports 0 chest pain and BP's decreasing. Cath prep done by INSURANCE RISK ANALYST and evening medications given. Sheree Haney RN
[2017-09-05 22:53] LABS: Bacteria 0 SEEN /hpf (None Seen); Mucous, Urine 0 SEEN /hpf (<or=2+); Red Blood Cells-Urine 0 SEEN /hpf (0-5); Squamous Epithelial Cells - UA 0 SEEN /hpf (0-5); White Blood Cells 0 SEEN /hpf (0-5)
--- NOTE | 2017-09-05 23:05 | NURSING ---
Nitro drip titrated down to 20 mcg/min per Charge nurses instructions. According to PCU policy Nitro drip is not to go over 20 mcg/min on PCU floor. In room with patient monitoring BP and chest pain. As of right now, patient not having chest pain if he sits up and doesn't lay flat. Sheree Haney RN.
[2017-09-05 23:07] LABS: Color, Urine Yellow (Yellow); Glucose, Dipstick 100 mg/dl (Normal); Ketone-Dipstick Negative (Negative); Leukocyte Esterase-Dipstick Negative /ul (Negative); Nitrite-Dipstick Negative (Negative); Occult Blood-Urine 10 /ul (Negative); Protein-Dipstick 100 mg/dl (Negative); Specific Gravity, Urine 1.015 (1.002-1.030); Urine Bilirubin Dipstick Negative (Negative); Urine Clarity Clear (Clear); Urine Urobilinogen Normal (Normal)
[2017-09-05] MEDS: Zolpidem Tartrate 5 MG Tablet PO (23:19)
[2017-09-05 23:41] LABS: Bedside Glucose 145 mg/dL (70-110)
[2017-09-06] VITALS (66 sets, daily range): BP systolic 117–222; BP diastolic 29–127; PULSE 81–125; RESP 12–27; TEMP 36.7–37.2; O2SAT 17–100
--- NOTE | 2017-09-06 00:56 | EKG12_ITS ---
Test Reason : CP Blood Pressure : / mmHG Vent. Rate : 098 BPM Atrial Rate : 098 BPM P-R Int : 176 ms QRS Dur : 148 ms QT Int : 428 ms P-R-T Axes : 024 -28 114 degrees QTc Int : 546 ms Normal sinus rhythm Left bundle branch block Abnormal ECG Confirmed by RODRICK CABRERA, ALAINA ([id number]), newspaper or periodical editor TEA BATISTA ([id number]) on 09/08/2017 1:50:58 PM Referred By: Kavita Hinojosa Confirmed By:ALAINA MENSAH MD
[2017-09-06] MEDS: Morphine 2 MG/ML Syringe 1 MG IV ×2 (01:10→17:33)
[2017-09-06] MEDS: 0.9% NaCl Peripheral Flush Adult/Peds IV (01:11)
[2017-09-06 03:46] LABS: Bedside Glucose 113 mg/dL (70-110)
[2017-09-06] MEDS: hydrALAZINE 25 MG Tablet PO (05:26)
[2017-09-06] MEDS: Clopidogrel Bisulfate 75 MG Tablet PO (05:26)
[2017-09-06] MEDS: Aspirin 81 MG TAB.CHEW PO (05:27)
[2017-09-06] MEDS: Carvedilol 12.5 MG Tablet PO (05:27)
--- NOTE | 2017-09-06 05:31 | NURSING ---
Pre cath, AM meds given, patient reporting 0 chest pain at this time with blood pressure readings varying. Patient educated on nitro drip, and basics of cardiac catheterization this AM. Sheree Haney RN.
[2017-09-06 05:33] LABS: Absolute Lymphocyte Count 0.99 X10^3/ul (0.83-4.51); Absolute Neutrophil Count 5.3 X10^3/uL (2.0-7.7); Basophil# 0.06 X10^3/uL; Basophil% 0.7 % (0-1); Eosinophil# 1.21 X10^3/uL; Eosinophils% 14.5 % (0-5); Hematocrit 29.4 % (40-54); Hemoglobin 9.8 g/dl (13.0-16.5); Lymphocyte # 0.99 X10^3/ul (4.0); Lymphocyte % 11.9 % (19-41); Mean Corp Hgb Conc 33.3 g/gl (32-36); Mean Corpuscular Hgb 31.5 pg (27.0-32.0); Mean Corpuscular Volume 94.5 fL (80-94); Mean Platelet Vol. 11.2 fl (6.2-12.0); Monocyte# 0.79 X10^3/uL; Monocyte% 9.5 % (0-10); Neutrophil # 5.28 X10^3/uL (2.7-7.7); Neutrophil % 63.2 % (47-70); Platelet Count 163 K/mm3 (150-450); RBC Distribution Width CV 13.8 % (11.6-14.6); RBC Distribution Width SD 46.1 fl (35.1-43.9); Red Blood Count 3.11 M/mm3 (4.6-6.2); White Blood Count 8.4 K/mm3 (4.4-11.0)
[2017-09-06 05:39] LABS: International Normalized Ratio 1.1; Partial Thromboplast Time 27.3 Seconds (24.1-36.2); Prothrombin Time (Protime)PT. 14.1 SECONDS (11.7-14.9)
[2017-09-06 05:42] LABS: POSITIVE COUNT NO; POSITIVE DIFFERENTIAL NO; POSITIVE MORPHOLOGY NO
[2017-09-06 05:48] LABS: Anion Gap 9 (5-15); BUN 57 mg/dL (7-18); BUN/Creat Ratio 19.4 RATIO (10-20); Calcium,Total 8.2 mg/dL (8.5-10.1); Chloride 112 mmol/L (98-107); Creatinine, Serum 2.94 mg/dL (0.70-1.30); EST Glomerular Filtration Rate 22 mL/min (>60); Est Glom Filt Rate - Afr Amer 27 mL/min (>60); Estimated Creatinine Clearance 20.92 ml/min; Glucose 117 mg/dL (74-106); Potassium 4.4 mmol/L (3.5-5.1); Sodium Level 143 mmol/L (136-145)
--- NOTE | 2017-09-06 05:55 | EKG12_ITS ---
Test Reason : CP Blood Pressure : / mmHG Vent. Rate : 100 BPM Atrial Rate : 100 BPM P-R Int : 182 ms QRS Dur : 146 ms QT Int : 406 ms P-R-T Axes : 060 -17 141 degrees QTc Int : 523 ms Sinus rhythm with occasional Premature ventricular complexes Left bundle branch block Abnormal ECG Confirmed by RODRICK CABRERA, ALAINA ([id number]), school photograph editor TEA BATISTA ([id number]) on 09/08/2017 1:50:37 PM Referred By: Kavita Hinojosa Confirmed By:ALAINA MENSAH MD
[2017-09-06] MEDS: 0.9% Normal Saline 1,000 ML 150 ML IV (06:25)
[2017-09-06 06:56] LABS: Bedside Glucose 118 mg/dL (70-110)
--- NOTE | 2017-09-06 07:51 | PCM.PROGNOTE ---
Subjective: Chief complaint: Follow-up after admission for probable unstable angina/CAD. Patient seen and examined. No acute events overnight. Today, he had no more upper back or anterior chest pain. He denied shortness of breath. He has been on IV fluids, large amounts and this morning, he is on 3 L of oxygen. He denied worsening shortness of breath. Blood pressure still slightly elevated, afebrile, heart rate has been around 100. - Physical Exam General: Alert, Oriented x3, Cooperative, - - Minimally short of breath. HEENT: Atraumatic, PERRLA, EOMI, Normocephalic Oral: Moist Mucosa, No Gingival or Mucosal Lesions/ Ulcerations Neck: Supple, No JVD, Negative Carotid Bruits, Trachea Midline, Thyroid Normal Size and Texture Lungs: Clear to auscultation, No rhonchi, No wheeze, No rales, Diminished Cardiovascular: Regular rate, Regular Rhythm, Normal S1, Normal S2, PMI Normal, Tachycardic Abdomen: Bowel Sounds Present, Soft, Non Tender, Non-Distended, No Hepato-splenomegaly Extremities: No clubbing, No cyanosis, No edema Skin: No rashes, No breakdown Lymphatic: No Cervical, Supraclavicular, or Inguinal Adenopathy Neurological: Cranial nerves II-XII grossly intact, Motor Exam 5/5 strength throughout Psych/Mental Status: Normal Affect, Appropriate, Alert and oriented to time, place, person, mood and affect Vital Signs Temp Pulse Resp BP Pulse Ox 98.2 F 89 18 156/86 H 98 09/06/17 03:30 09/06/17 07:00 09/06/17 07:00 09/06/17 07:00 09/06/17 07:00 Oxygen Flow Rate (L/min) 3 Oxygen Delivery Method Nasal Cannula Weight: 166 lb 10.711 oz Body Mass Index (BMI) 26.1 Intake and Output for Last 24 Hours 09/04/17 09/05/17 09/06/17 23:59 23:59 23:59 Intake Total 3033 / 3033 1014 / 1014 Output Total 1855 / 1855 285 / 285 Balance 1178 / 1178 729 / 729 Laboratory Tests Past 24 Hrs 09/05/17 09/06/17 09/06/17 22:45 05:10 05:10 WBC 8.4 RBC 3.11 L Hgb 9.8 L Hct 29.4 L MCV 94.5 H MCH 31.5 MCHC 33.3 RDW 13.8 RDW Differential 46.1 H Plt Count 163 MPV 11.2 Immature Gran % (Auto) 0.200 Neut % (Auto) 63.2 Lymph % (Auto) 11.9 L [place] % (Auto) 9.5 Eos % (Auto) 14.5 H Baso % (Auto) 0.7 Absolute Neuts (auto) 5.3 Absolute Lymphs (auto) 0.99 Total Counted Not Reportable PT 14.1 INR 1.1 APTT 27.3 Sodium Potassium Chloride Carbon Dioxide Anion Gap BUN Creatinine Estim Creat Clear Calc Est GFR (MDRD) Af Amer Est GFR (MDRD) Non-Af BUN/Creatinine Ratio Glucose Calcium Urine Color Yellow Urine Clarity Clear Urine pH 6.0 Ur Specific [place] 1.015 Urine Protein 100 H Urine Glucose (UA) 100 H Urine Ketones Negative Urine Occult Blood 10 H Urine Nitrite Negative Urine Bilirubin Negative Urine Urobilinogen Normal Ur Leukocyte Esterase Negative Urine RBC 0 SEEN Urine WBC 0 SEEN Ur Squamous Epith Cells 0 SEEN Urine Bacteria 0 SEEN Urine Mucus 0 SEEN 09/06/17 05:10 WBC RBC Hgb Hct MCV MCH MCHC RDW RDW Differential Plt Count MPV Immature Gran % (Auto) Neut % (Auto) Lymph % (Auto) [place] % (Auto) Eos % (Auto) Baso % (Auto) Absolute Neuts (auto) Absolute Lymphs (auto) Total Counted PT INR APTT Sodium 143 Potassium 4.4 Chloride 112 H Carbon Dioxide 22.0 Anion Gap 9 BUN 57 H Creatinine 2.94 H Estim Creat Clear Calc 20.92 Est GFR (MDRD) Af Amer 27 L Est GFR (MDRD) Non-Af 22 L BUN/Creatinine Ratio 19.4 Glucose 117 H Calcium 8.2 L Urine Color Urine Clarity Urine pH Ur Specific [place] Urine Protein Urine Glucose (UA) Urine Ketones Urine Occult Blood Urine Nitrite Urine Bilirubin Urine Urobilinogen Ur Leukocyte Esterase Urine RBC Urine WBC Ur Squamous Epith Cells Urine Bacteria Urine Mucus POC Glucose 09/06/17 09/06/17 09/05/17 06:49 03:43 23:23 POC Glucose 118 H 113 H 145 H 09/05/17 09/05/17 16:32 11:34 POC Glucose 277 H 159 H Clinical Impression(s) from Imaging Studies Chest X-Ray 09/04/17 23:11 IMPRESSION: No evidence for acute chest disease. Electronically Signed: Karson Stephens MD at 23:29 EDT , Service support , Chest CT 09/05/17 09:01 IMPRESSION: 1. Lungs are adequately inflated and clear. 2. No evidence of thoracic aortic aneurysm 3. Dextroscoliosis of the thoracic spine Electronically Signed: Saud Juarez DO at 10:57 EDT Tel , Service support , Thoracic Spine CT 09/05/17 09:01 IMPRESSION: Degenerative changes of the thoracic spine with dextroscoliosis curvature. No acute findings Electronically Signed: Saud Juarez DO at 10:58 EDT Tel , Service support , Medical Necessity - Tobacco Use Smoking Status: Former smoker Tobacco Use: Cigarettes Assessment/Plan All Active Problems Chest pain (Acute) This is a 72 years old male patient admitted because of atypical chest pain/upper back pain, found to have borderline elevated troponin and was admitted for evaluation. #1 atypical chest pain/probable unstable angina/CAD: EKG revealed normal sinus rhythm with chronic left bundle branch block, no acute ST elevation. Troponin is borderline elevated, maximum was 0.069. He is on aspirin, Plavix, Coreg, IV morphine and IV nitroglycerin drip. Today, he has no more pain. Because he had this upper back pain and he mentioned that he had abdominal aortic aneurysm although is not sure, CT scan chest and thoracic spine done yesterday and revealed no acute findings, no thoracic aortic aneurysm., Plan for cardiac catheterization today. #2 uncontrolled hypertension: His blood pressure has been on the higher side. He was started on hydralazine yesterday, continued on Coreg, metoprolol as well as IV nitroglycerin drip. Plan to monitor. #3 stage IV chronic kidney disease: Baseline creatinine has been around 2.5-3.5. Admission creatinine was 3.69, came down to 2.9 for IV fluids. Patient is aware that cardiac catheterization might worsen his kidney function and he might need to go for dialysis at least temporarily. Plan to continue IV fluids, repeat BMP tomorrow morning. #4 CAD status post CABG: Plan as above, continue aspirin, Plavix, Coreg, and statins. #5 type 2 diabetes mellitus: Blood sugar stable, continue ADA diet, Accu-Cheks, Lantus insulin. #6 hyperlipidemia: Continue statins. #7 status post colostomy: Not sure exactly why patient had this colostomy many years ago. Abdomen exam is benign, colostomy bag is working. #8 DVT prophylaxis: SCDs. This note was generated with [employer] dictation software. It may contain incorrect words, spelling, and punctuation that were not noted in checking the note before signing. Code Visit Inpatient E&M: 53902 Subs Hosp L2
--- NOTE | 2017-09-06 08:00 | PN_ITS ---
Subjective: Chief complaint: Follow-up after admission for probable unstable angina/CAD. Patient seen and examined. No acute events overnight. Today, he had no more upper back or anterior chest pain. He denied shortness of breath. He has been on IV fluids, large amounts and this morning, he is on 3 L of oxygen. He denied worsening shortness of breath. Blood pressure still slightly elevated, afebrile, heart rate has been around 100. - Physical Exam General: Alert, Oriented x3, Cooperative, - - Minimally short of breath. HEENT: Atraumatic, PERRLA, EOMI, Normocephalic Oral: Moist Mucosa, No Gingival or Mucosal Lesions/ Ulcerations Neck: Supple, No JVD, Negative Carotid Bruits, Trachea Midline, Thyroid Normal Size and Texture Lungs: Clear to auscultation, No rhonchi, No wheeze, No rales, Diminished Cardiovascular: Regular rate, Regular Rhythm, Normal S1, Normal S2, PMI Normal, Tachycardic Abdomen: Bowel Sounds Present, Soft, Non Tender, Non-Distended, No Hepato- splenomegaly Extremities: No clubbing, No cyanosis, No edema Skin: No rashes, No breakdown Lymphatic: No Cervical, Supraclavicular, or Inguinal Adenopathy Neurological: Cranial nerves II-XII grossly intact, Motor Exam 5/5 strength throughout Psych/Mental Status: Normal Affect, Appropriate, Alert and oriented to time, place, person, mood and affect Vital Signs Temp Pulse Resp BP Pulse Ox 98.2 F 89 18 156/86 H 98 09/06/17 03:30 09/06/17 07:00 09/06/17 07:00 09/06/17 07:00 09/06/17 07:00 Oxygen Flow Rate (L/min) 3 Oxygen Delivery Method Nasal Cannula Weight: 166 lb 10.711 oz Body Mass Index (BMI) 26.1 Intake and Output for Last 24 Hours 09/04/17 09/05/17 09/06/17 23:59 23:59 23:59 Intake Total 3033 / 3033 1014 / 1014 Output Total 1855 / 1855 285 / 285 Balance 1178 / 1178 729 / 729 Laboratory Tests Past 24 Hrs 09/05/17 09/06/17 09/06/17 22:45 05:10 05:10 WBC 8.4 RBC 3.11 L Hgb 9.8 L Hct 29.4 L MCV 94.5 H MCH 31.5 MCHC 33.3 RDW 13.8 RDW Differential 46.1 H Plt Count 163 MPV 11.2 Immature Gran % (Auto) 0.200 Neut % (Auto) 63.2 Lymph % (Auto) 11.9 L [place] % (Auto) 9.5 Eos % (Auto) 14.5 H Baso % (Auto) 0.7 Absolute Neuts (auto) 5.3 Absolute Lymphs (auto) 0.99 Total Counted Not Reportable PT 14.1 INR 1.1 APTT 27.3 Sodium Potassium Chloride Carbon Dioxide Anion Gap BUN Creatinine Estim Creat Clear Calc Est GFR (MDRD) Af Amer Est GFR (MDRD) Non-Af BUN/Creatinine Ratio Glucose Calcium Urine Color Yellow Urine Clarity Clear Urine pH 6.0 Ur Specific [place] 1.015 Urine Protein 100 H Urine Glucose (UA) 100 H Urine Ketones Negative Urine Occult Blood 10 H Urine Nitrite Negative Urine Bilirubin Negative Urine Urobilinogen Normal Ur Leukocyte Esterase Negative Urine RBC 0 SEEN Urine WBC 0 SEEN Ur Squamous Epith Cells 0 SEEN Urine Bacteria 0 SEEN Urine Mucus 0 SEEN 09/06/17 05:10 WBC RBC Hgb Hct MCV MCH MCHC RDW RDW Differential Plt Count MPV Immature Gran % (Auto) Neut % (Auto) Lymph % (Auto) [place] % (Auto) Eos % (Auto) Baso % (Auto) Absolute Neuts (auto) Absolute Lymphs (auto) Total Counted PT INR APTT Sodium 143 Potassium 4.4 Chloride 112 H Carbon Dioxide 22.0 Anion Gap 9 BUN 57 H Creatinine 2.94 H Estim Creat Clear Calc 20.92 Est GFR (MDRD) Af Amer 27 L Est GFR (MDRD) Non-Af 22 L BUN/Creatinine Ratio 19.4 Glucose 117 H Calcium 8.2 L Urine Color Urine Clarity Urine pH Ur Specific [place] Urine Protein Urine Glucose (UA) Urine Ketones Urine Occult Blood Urine Nitrite Urine Bilirubin Urine Urobilinogen Ur Leukocyte Esterase Urine RBC Urine WBC Ur Squamous Epith Cells Urine Bacteria Urine Mucus POC Glucose 09/06/17 09/06/17 09/05/17 06:49 03:43 23:23 POC Glucose 118 H 113 H 145 H 09/05/17 09/05/17 16:32 11:34 POC Glucose 277 H 159 H Clinical Impression(s) from Imaging Studies Chest X-Ray 09/04/17 23:11 IMPRESSION: No evidence for acute chest disease. Electronically Signed: Karson Stephens MD at 23:29 EDT , Service support , Chest CT 09/05/17 09:01 IMPRESSION: 1. Lungs are adequately inflated and clear. 2. No evidence of thoracic aortic aneurysm 3. Dextroscoliosis of the thoracic spine Electronically Signed: Saud Juarez DO at 10:57 EDT Tel , Service support , Thoracic Spine CT 09/05/17 09:01 IMPRESSION: Degenerative changes of the thoracic spine with dextroscoliosis curvature. No acute findings Electronically Signed: Saud Juarez DO at 10:58 EDT Tel , Service support , Medical Necessity - Tobacco Use Smoking Status: Former smoker Tobacco Use: Cigarettes Assessment/Plan All Active Problems Chest pain (Acute) This is a 72 years old male patient admitted because of atypical chest pain/ upper back pain, found to have borderline elevated troponin and was admitted for evaluation. #1 atypical chest pain/probable unstable angina/CAD: EKG revealed normal sinus rhythm with chronic left bundle branch block, no acute ST elevation. Troponin is borderline elevated, maximum was 0.069. He is on aspirin, Plavix, Coreg, IV morphine and IV nitroglycerin drip. Today, he has no more pain. Because he had this upper back pain and he mentioned that he had abdominal aortic aneurysm although is not sure, CT scan chest and thoracic spine done yesterday and revealed no acute findings, no thoracic aortic aneurysm., Plan for cardiac catheterization today. #2 uncontrolled hypertension: His blood pressure has been on the higher side. He was started on hydralazine yesterday, continued on Coreg, metoprolol as well as IV nitroglycerin drip. Plan to monitor. #3 stage IV chronic kidney disease: Baseline creatinine has been around 2.5- 3.5. Admission creatinine was 3.69, came down to 2.9 for IV fluids. Patient is aware that cardiac catheterization might worsen his kidney function and he might need to go for dialysis at least temporarily. Plan to continue IV fluids , repeat BMP tomorrow morning. #4 CAD status post CABG: Plan as above, continue aspirin, Plavix, Coreg, and statins. #5 type 2 diabetes mellitus: Blood sugar stable, continue ADA diet, Accu-Cheks, Lantus insulin. #6 hyperlipidemia: Continue statins. #7 status post colostomy: Not sure exactly why patient had this colostomy many years ago. Abdomen exam is benign, colostomy bag is working. #8 DVT prophylaxis: SCDs. This note was generated with [employer] dictation software. It may contain incorrect words, spelling, and punctuation that were not noted in checking the note before signing. Code Visit Inpatient E&M: 13378 Subs Hosp L2
[2017-09-06 11:20] LABS: Bedside Glucose 121 mg/dL (70-110)
[2017-09-06] MEDS: DiphenhydrAMINE 25 MG Capsule 50 MG PO (13:31)
--- NOTE | 2017-09-06 14:45 | CL.D_ITS ---
Patient Name: YVETTE BECERRA Study Date: 09/06/2017 Performing: Jayy Barnard MD Ht: 66.92 inches 170 cm : 1945 Wt: 167.55 lbs 76 kg Age: 72 Gender: male BSA: 1.87 PROCEDURE(S) PERFORMED [id number]/LV/CABG CLINICAL PROFILE AND INDICATIONS Heart Failure: NYHA Class: 2, Newly Diagnosed: No, Heart Failure Type: Systolic Stress/Imaging Stress Echocardiogram: Yes Result: IndeterminantStress Echocardiogram: Indetermina nt Angina Classification Anginal Classification w/in 2 Weeks: CCS IV CAD Presentations: Unstable angina. Comorbidities/Risk Factors: Hypertension Dyslipidemia Prior CHF Prior CABG Prior PCI Prior PCI CONCLUSIONS Global LV systolic dysfunction- Moderate Triple vessel CAD of the LM, LAD, OM, RCA Occluded SVG to OM Patent SVG to RCA with patent SVG stent. Patent CHARLES to LAD Patent LCX stents. Possibly signficant proximal LM disease with signficant calcification. Would most likely require Rot oblation for intervention. RECOMMENDATIONS Risk factor modification ASA Indefinitely Management as per referring Supervisor Lump Room Consider PTCRA of LM if pt continues to have angina despite maximal medical therapy. f/u with Dr Vigil DESCRIPTION OF PROCEDURE The patient arrived to the procedure lab. The risks and benefits of the procedure as well as a full d escription of our services here and current unavailability of surgical backup were fully explained to the patient and/or their significant other prior to the catheterization. The Timeout was completed, verifying the correct patient and procedure. The patient's procedural site was prepped and draped in the usual fashion. Local anesthetic was given subcutaneously to right groin region with Lidocaine 2%. Using a modified Seldinger technique, arterial access was obtained via the right femoral artery, a 4 Fr sheath was inserted Left Coronary Artery selective angiography was performed in multiple views us ing a 4 Fr. JL5 catheter. Right Coronary Artery selective angiography was then performed in multiple views using a 4 Fr. 3DRC catheter. Left internal mammary artery graft to the LAD selective angiograph y was performed in multiple views using a 4 Fr. 3DRC catheter. Saphenous Vein graft to the RCA select rozina angiography was performed in multiple views using a 4 Fr. AR MOD 2 catheter. Left Ventriculograph y was performed in MEDEL projection using a 4 Fr. Pigtail catheter. LV to AO pullback pressures were th en recorded. CORONARY ANGIOGRAPHY DOMINANCE: Right Dominant LEFT HEART ASSESSMENT Left Ventricular Ejection Fraction: by LV Gram 30 % Global Hypokinesis - Severe Depressed Left Ventricular systolic function Elevated Left Ventricular End Diastolic Pressure LEFT MAIN: 75 proximal % Stenosis LEFT ANTERIOR DECENDING ARTERY: MID LAD: is occluded CIRCUMFLEX ARTERY: MID CIRC: Previously placed stent is patent RIGHT CORONARY ARTERY: is occluded GRAFTS: CHARLES graft to the Mid LAD is patent Saphenous Vein graft to the CIRC is totally occluded Saphenous Vein graft to the RPDA is patent with widely patent SVG stent; 30% distal SVG stenosis. COMPLICATIONS No Complications PROCEDURE MEDICATIONS Versed 1 mg IV Fentanyl 25 mcg IV Fentanyl 25 mcg IV Oxygen: 2 L/min via nasal cannula Nitro Tab 0.4 mg PO 09/06/2017 14:36:36 SUMMARY OF HEMODYNAMIC DATA Time AIR REST ECG 13:58:47 AO 174/89 (125) SA 14:12:34 LV 185/0, 37 14:22:50 LV 185/-1, 36 14:22:57 LV 184/0, 34 14:24:47 LV 182/-2, 34 14:24:54 LVp 189/-3, 33 14:25:06 AOp 193/84 (124) 14:25:11 FA 172/72 (109) 14:42:54 FA 163/70 (105) 14:43:01 Signed By Jayy Barnard MD On 09/06/2017 14:44:50 Jayy Barnard MD
--- NOTE | 2017-09-06 14:48 | NURSING ---
report called to Merry HOWARD in ICU
[2017-09-06] MEDS: hydrALAZINE 20 MG/ML Vial IV (16:10)
[2017-09-06 16:31] LABS: Bedside Glucose 123 mg/dL (70-110)
[2017-09-06] MEDS: LORazepam 2 MG/ML Syringe 1 MG IV ×2 (16:32→23:29)
[2017-09-06 19:12] LABS: M R Staph aureus DNA By PCR Negative (Negative); Probe Check PASS; Specimen Processing Control PASS
[2017-09-06] MEDS: 0.9% Normal Saline 1,000 ML 75 ML IV (19:34)
[2017-09-06] MEDS: Carvedilol 25 MG Tablet PO (21:21)
[2017-09-06] MEDS: hydrALAZINE 50 MG Tablet PO (21:21)
[2017-09-06] MEDS: Insulin Lispro 100 UNIT/ML INSULN.PEN SQ (21:31)
[2017-09-06 21:40] LABS: Bedside Glucose 190 mg/dL (70-110)
[2017-09-06] MEDS: Ondansetron 4 MG/2 ML Vial IV (23:27)
[2017-09-07] VITALS (29 sets, daily range): BP systolic 118–176; BP diastolic 57–91; PULSE 95–118; RESP 15–25; TEMP 36.5–37.3; O2SAT 93–98
[2017-09-07] MEDS: Morphine 2 MG/ML Syringe 1 MG IV ×5 (00:51→21:56)
[2017-09-07 03:49] LABS: Absolute Lymphocyte Count 0.44 X10^3/ul (0.83-4.51); Absolute Neutrophil Count 9.5 X10^3/uL (2.0-7.7); Basophil# 0.01 X10^3/uL; Basophil% 0.1 % (0-1); Eosinophil# 0.48 X10^3/uL; Eosinophils% 4.3 % (0-5); Hematocrit 28.8 % (40-54); Hemoglobin 9.8 g/dl (13.0-16.5); Lymphocyte # 0.44 X10^3/ul (4.0); Lymphocyte % 3.9 % (19-41); Mean Corpuscular Hgb 32.3 pg (27.0-32.0); Mean Platelet Vol. 11.8 fl (6.2-12.0); Monocyte% 7.1 % (0-10); Neutrophil % 84.4 % (47-70); Platelet Count 179 K/mm3 (150-450); RBC Distribution Width CV 14.1 % (11.6-14.6); RBC Distribution Width SD 46.6 fl (35.1-43.9); Red Blood Count 3.03 M/mm3 (4.6-6.2); White Blood Count 11.3 K/mm3 (4.4-11.0)
[2017-09-07 03:51] LABS: Differential Indicated SCAN CRITERIA MET; POSITIVE COUNT NO; POSITIVE DIFFERENTIAL YES; POSITIVE MORPHOLOGY NO
[2017-09-07 03:58] LABS: Anion Gap 10 (5-15); BUN 48 mg/dL (7-18); BUN/Creat Ratio 17.7 RATIO (10-20); Calcium,Total 8.2 mg/dL (8.5-10.1); Chloride 112 mmol/L (98-107); Creatinine, Serum 2.71 mg/dL (0.70-1.30); EST Glomerular Filtration Rate 25 mL/min (>60); Est Glom Filt Rate - Afr Amer 30 mL/min (>60); Glucose 197 mg/dL (74-106); Potassium 4.6 mmol/L (3.5-5.1); Sodium Level 143 mmol/L (136-145)
--- NOTE | 2017-09-07 04:59 | EKG12_ITS ---
Test Reason : AM EKG Blood Pressure : / mmHG Vent. Rate : 112 BPM Atrial Rate : 112 BPM P-R Int : 144 ms QRS Dur : 144 ms QT Int : 394 ms P-R-T Axes : 062 020 118 degrees QTc Int : 537 ms Sinus tachycardia Left bundle branch block Abnormal ECG Confirmed by RODRICK CABRERA, ALAINA ([id number]), technical writer and editor TEA BATISTA ([id number]) on 09/08/2017 1:52:29 PM Referred By: Kavita Hinojosa Confirmed By:ALAINA MENSAH MD
[2017-09-07 05:00] LABS: Differential Comment SCANNED
[2017-09-07 06:15] LABS: Bedside Glucose 173 mg/dL (70-110)
[2017-09-07] MEDS: Insulin Lispro 100 UNIT/ML INSULN.PEN SQ (06:16)
--- NOTE | 2017-09-07 08:05 | PCM.PROGNOTE ---
Subjective: Chief complaint: Follow-up after admission for unstable angina/CAD, status post cardiac catheterization. Patient seen and examined. No acute events overnight. This morning, he complained of chest pain again both anterior chest pain as well as upper back pain. Denies shortness of breath. Reportedly, blood pressure was elevated last night but this morning, is much better. He is afebrile, tachycardic, blood pressures around 160 systolic, pulse ox is 93% on room air. - Physical Exam General: Alert, Oriented x3, Cooperative, - - Restless. HEENT: Atraumatic, PERRLA, EOMI, Normocephalic Oral: Moist Mucosa, No Gingival or Mucosal Lesions/ Ulcerations Neck: Supple, No JVD, Negative Carotid Bruits, Trachea Midline, Thyroid Normal Size and Texture Lungs: Clear to auscultation, No rhonchi, No wheeze, No rales, Diminished Cardiovascular: Regular rate, Regular Rhythm, Normal S1, Normal S2, PMI Normal, Tachycardic Abdomen: Bowel Sounds Present, Soft, Non Tender, Non-Distended, No Hepato-splenomegaly Extremities: No clubbing, No cyanosis, No edema Skin: No rashes, No breakdown Lymphatic: No Cervical, Supraclavicular, or Inguinal Adenopathy Neurological: Cranial nerves II-XII grossly intact, Motor Exam 5/5 strength throughout Psych/Mental Status: Normal Affect, Appropriate, Alert and oriented to time, place, person, mood and affect Vital Signs Temp Pulse Resp BP Pulse Ox 98.2 F 107 H 16 155/85 H 93 09/07/17 04:00 09/07/17 07:13 09/07/17 07:00 09/07/17 07:00 09/07/17 07:00 Oxygen Flow Rate (L/min) 2 Oxygen Delivery Method Room Air Weight: 165 lb 12.602 oz Body Mass Index (BMI) 26.1 Intake and Output for Last 24 Hours 09/05/17 09/06/17 09/07/17 23:59 23:59 23:59 Intake Total 3033 / 3033 1808.5 / 1808.5 2005 Output Total 1855 / 1855 1425 / 1425 1450 / 1450 Balance 1178 / 1178 383.5 / 383.5 556 / 556 Laboratory Tests Past 24 Hrs 0709/07/17 09/07/17 17:45 03:25 03:25 WBC 11.3 H RBC 3.03 L Hgb 9.8 L Hct 28.8 L MCV 95.0 H MCH 32.3 H MCHC 34.0 RDW 14.1 RDW Differential 46.6 H Plt Count 179 MPV 11.8 Immature Gran % (Auto) 0.200 Neut % (Auto) 84.4 H Lymph % (Auto) 3.9 L [place] % (Auto) 7.1 Eos % (Auto) 4.3 Baso % (Auto) 0.1 Absolute Neuts (auto) 9.5 H Absolute Lymphs (auto) 0.44 L Total Counted Not Reportable Differential Comment SCANNED Sodium 143 Potassium 4.6 Chloride 112 H Carbon Dioxide 21.0 Anion Gap 10 BUN 48 H Creatinine 2.71 H Estim Creat Clear Calc 22.70 Est GFR (MDRD) Af Amer 30 L Est GFR (MDRD) Non-Af 25 L BUN/Creatinine Ratio 17.7 Glucose 197 H Calcium 8.2 L MRSA (PCR) Negative POC Glucose 09/07/17 09/06/17 09/06/17 06:01 21:29 16:18 POC Glucose 173 H 190 H 123 H 09/06/17 11:16 POC Glucose 121 H Medical Necessity - Tobacco Use Smoking Status: Former smoker Tobacco Use: Cigarettes Assessment/Plan All Active Problems Chest pain (Acute) This is a 72 years old male patient admitted because of atypical chest pain/upper back pain, found to have borderline elevated troponin and was admitted for evaluation. #1 atypical chest pain/probable unstable angina/CAD: Status post cardiac catheterization that revealed occluded SVG graft to OM, patent SVG to RCA, patent CHARLES to LAD, patent LCx stents and possibly significant proximal LM disease, no interventions was performed. Today, patient still symptomatic with chest pain. Blood pressure under better control. He is on aspirin, Plavix, Coreg, isosorbide mononitrate and metoprolol. Cardiology on the case. #2 uncontrolled hypertension: Blood pressure under better control. He is off IV Cardizem drip. He is on Coreg, Lasix, p.o. hydralazine, isosorbide mononitrate and metoprolol. Plan to continue same treatment, close monitoring. #3 stage IV chronic kidney disease: Baseline creatinine has been around 2.5-3.5. Admission creatinine was 3.69, came down to 2.9 for IV fluids. He received contrast with a heart cath yesterday. Today's creatinine is 2.71, stable at baseline. #4 CAD status post CABG: Plan as above, continue aspirin, Plavix, Coreg, and statins. #5 type 2 diabetes mellitus: Blood sugar stable, continue ADA diet, Accu-Cheks, Lantus insulin. #6 hyperlipidemia: Continue statins. #7 status post colostomy: Not sure exactly why patient had this colostomy many years ago. Abdomen exam is benign, colostomy bag is working. #8 DVT prophylaxis: SCDs. This note was generated with [employer] dictation software. It may contain incorrect words, spelling, and punctuation that were not noted in checking the note before signing.
--- NOTE | 2017-09-07 08:11 | PN_ITS ---
Subjective: Chief complaint: Follow-up after admission for unstable angina/CAD, status post cardiac catheterization. Patient seen and examined. No acute events overnight. This morning, he complained of chest pain again both anterior chest pain as well as upper back pain. Denies shortness of breath. Reportedly, blood pressure was elevated last night but this morning, is much better. He is afebrile, tachycardic, blood pressures around 160 systolic, pulse ox is 93% on room air. - Physical Exam General: Alert, Oriented x3, Cooperative, - - Restless. HEENT: Atraumatic, PERRLA, EOMI, Normocephalic Oral: Moist Mucosa, No Gingival or Mucosal Lesions/ Ulcerations Neck: Supple, No JVD, Negative Carotid Bruits, Trachea Midline, Thyroid Normal Size and Texture Lungs: Clear to auscultation, No rhonchi, No wheeze, No rales, Diminished Cardiovascular: Regular rate, Regular Rhythm, Normal S1, Normal S2, PMI Normal, Tachycardic Abdomen: Bowel Sounds Present, Soft, Non Tender, Non-Distended, No Hepato- splenomegaly Extremities: No clubbing, No cyanosis, No edema Skin: No rashes, No breakdown Lymphatic: No Cervical, Supraclavicular, or Inguinal Adenopathy Neurological: Cranial nerves II-XII grossly intact, Motor Exam 5/5 strength throughout Psych/Mental Status: Normal Affect, Appropriate, Alert and oriented to time, place, person, mood and affect Vital Signs Temp Pulse Resp BP Pulse Ox 98.2 F 107 H 16 155/85 H 93 09/07/17 04:00 09/07/17 07:13 09/07/17 07:00 09/07/17 07:00 09/07/17 07:00 Oxygen Flow Rate (L/min) 2 Oxygen Delivery Method Room Air Weight: 165 lb 12.602 oz Body Mass Index (BMI) 26.1 Intake and Output for Last 24 Hours 09/05/17 09/06/17 09/07/17 23:59 23:59 23:59 Intake Total 3033 / 3033 1808.5 / 1808.5 2005 Output Total 1855 / 1855 1425 / 1425 1450 / 1450 Balance 1178 / 1178 383.5 / 383.5 556 / 556 Laboratory Tests Past 24 Hrs 0709/07/17 09/07/17 17:45 03:25 03:25 WBC 11.3 H RBC 3.03 L Hgb 9.8 L Hct 28.8 L MCV 95.0 H MCH 32.3 H MCHC 34.0 RDW 14.1 RDW Differential 46.6 H Plt Count 179 MPV 11.8 Immature Gran % (Auto) 0.200 Neut % (Auto) 84.4 H Lymph % (Auto) 3.9 L [place] % (Auto) 7.1 Eos % (Auto) 4.3 Baso % (Auto) 0.1 Absolute Neuts (auto) 9.5 H Absolute Lymphs (auto) 0.44 L Total Counted Not Reportable Differential Comment SCANNED Sodium 143 Potassium 4.6 Chloride 112 H Carbon Dioxide 21.0 Anion Gap 10 BUN 48 H Creatinine 2.71 H Estim Creat Clear Calc 22.70 Est GFR (MDRD) Af Amer 30 L Est GFR (MDRD) Non-Af 25 L BUN/Creatinine Ratio 17.7 Glucose 197 H Calcium 8.2 L MRSA (PCR) Negative POC Glucose 09/07/17 09/06/17 09/06/17 06:01 21:29 16:18 POC Glucose 173 H 190 H 123 H 09/06/17 11:16 POC Glucose 121 H Medical Necessity - Tobacco Use Smoking Status: Former smoker Tobacco Use: Cigarettes Assessment/Plan All Active Problems Chest pain (Acute) This is a 72 years old male patient admitted because of atypical chest pain/ upper back pain, found to have borderline elevated troponin and was admitted for evaluation. #1 atypical chest pain/probable unstable angina/CAD: Status post cardiac catheterization that revealed occluded SVG graft to OM, patent SVG to RCA, patent CHARLES to LAD, patent LCx stents and possibly significant proximal LM disease, no interventions was performed. Today, patient still symptomatic with chest pain. Blood pressure under better control. He is on aspirin, Plavix, Coreg, isosorbide mononitrate and metoprolol. Cardiology on the case. #2 uncontrolled hypertension: Blood pressure under better control. He is off IV Cardizem drip. He is on Coreg, Lasix, p.o. hydralazine, isosorbide mononitrate and metoprolol. Plan to continue same treatment, close monitoring. #3 stage IV chronic kidney disease: Baseline creatinine has been around 2.5- 3.5. Admission creatinine was 3.69, came down to 2.9 for IV fluids. He received contrast with a heart cath yesterday. Today's creatinine is 2.71, stable at baseline. #4 CAD status post CABG: Plan as above, continue aspirin, Plavix, Coreg, and statins. #5 type 2 diabetes mellitus: Blood sugar stable, continue ADA diet, Accu-Cheks, Lantus insulin. #6 hyperlipidemia: Continue statins. #7 status post colostomy: Not sure exactly why patient had this colostomy many years ago. Abdomen exam is benign, colostomy bag is working. #8 DVT prophylaxis: SCDs. This note was generated with [employer] dictation software. It may contain incorrect words, spelling, and punctuation that were not noted in checking the note before signing.
[2017-09-07] MEDS: Isosorbide Mononitrate 60 MG Tablet PO (08:39)
[2017-09-07] MEDS: hydrALAZINE 50 MG Tablet PO ×2 (08:39→21:55)
[2017-09-07] MEDS: Aspirin 81 MG TAB.CHEW PO (08:39)
--- NOTE | 2017-09-07 09:28 | PN.CARD_ITS ---
Subjectve: Patient doing fairly well this morning, continues to have atypical nonexertional chest pain which is described as sharp and midsternal. His blood pressure is much better controlled. His right groin is clean/dry/intact, no thrills, hematoma or bruits. Nitroglycerin drip is off. Telemetry shows sinus tachycardia, rare PVC. Objective: Vital Signs Temp Pulse Resp BP Pulse Ox 99.2 F H 113 H 20 H 132/72 H 94 09/07/17 08:00 09/07/17 09:00 09/07/17 09:00 09/07/17 09:00 09/07/17 09:00 Oxygen Flow Rate (L/min) 2 Oxygen Delivery Method Room Air Weight: 165 lb 12.602 oz Body Mass Index (BMI) 26.1 Intake and Output for Last 24 Hours 09/05/17 09/06/17 09/07/17 23:59 23:59 23:59 Intake Total 3033 / 3033 1808.5 / 1808.5 2005 Output Total 1855 / 1855 1425 / 1425 1450 / 1450 Balance 1178 / 1178 383.5 / 383.5 556 / 556 General: Awake, Alert, Oriented x 3 HEENT: PERRL, EOMI, Sclera Non Icteric Neck: Supple, Good ROM, No Lymph Node Enlargement Lungs: Clear to auscultation Cardiovascular: Regular Rhythm, Normal S1, Normal S2, No Murmurs, No Rubs, No Gallops Vascular: No Carotid Bruits, Normal Femoral Pulses, Normal Radial Pulses, Normal Dorsalis Pedal Pulse, Normal Posterior Tibial Pulses Abdomen: Bowel Sounds Present, Soft, Non Tender, No HSM, No Organomegaly Extremities: No Cyanosis, No Clubbing, No edema Neurological: No Focal Motor or Sensory Deficit 09/07/17 03:25: WBC 11.3 H, RBC 3.03 L, Hgb 9.8 L, Hct 28.8 L, MCV 95.0 H, MCH 32.3 H, MCHC 34.0, RDW 14.1, RDW Differential 46.6 H, Plt Count 179, MPV 11.8, Immature Gran % (Auto) 0.200, Neut % (Auto) 84.4 H, Lymph % (Auto) 3.9 L, [place] % (Auto) 7.1, Eos % (Auto) 4.3, Baso % (Auto) 0.1, Absolute Neuts (auto) 9.5 H, Total Counted Not Reportable 09/07/17 03:25: Sodium 143, Potassium 4.6, Chloride 112 H, Carbon Dioxide 21.0, Anion Gap 10, BUN 48 H, Creatinine 2.71 H, Est GFR (MDRD) Af Amer 30 L, Est GFR (MDRD) Non-Af 25 L, BUN/Creatinine Ratio 17.7, Glucose 197 H, Calcium 8.2 L Rhythm: EKG: ECHO: Stress Test: Cardiac Cath: PCI: CT Surgery: Holter monitor: EPS: PPM: CXR: Chest CT Scan: Medical Necessity - Tobacco Use Smoking Status: Former smoker Tobacco Use: Cigarettes Assessment/Plan 1. Coronary artery disease: Patient returns with hypertension induced mid scapular back pain similar to his previous anginal symptoms despite medical therapy. Given the patient's cardiac history, recurrence of symptoms, and patient underwent repeat left heart catheterization with graft angiography yesterday 09/06/17. This demonstrated a patent CHARLES to the LAD, a patent left circumflex stent, possibly significant calcified proximal left main, occluded saphenous vein graft to the obtuse marginal, patent saphenous vein graft to the PDA with a patent saphenous vein graft stent. LV ejection fraction was approximately 35%. Overnight the patient had significant hypertension requiring high-dose nitroglycerin, IV hydralazine, and additional antihypertensive medications. This morning his blood pressure is much better, and his nitroglycerin drip is off. Nonetheless he continues to have atypical midsternal chest pain, which appears to improve with changing of position. I believe the patient has a significant component of hypertension induced chest pain, and to that end we have increased his Coreg to 25 mg p.o. twice daily, increase his Imdur to 60 mg twice daily, started p.o. hydralazine 25 mg p.o. twice daily, and continue Lasix 40 mg a day. His creatinine is actually improved since his admission, and has had no significant deterioration since his cath yesterday. I believe he may be reaching the threshold by which his medications are working considering his end-stage renal disease. I have asked Dr. Tracey Royal his vehicle safety inspector to revisit the idea of placing an AV fistula in anticipation for hemodialysis for fluid removal and blood pressure control. In addition we will start the patient on a PPI medication as his symptoms appear to be recumbent in nature and occur in the evening when he is laying down , which causes a cascade of hypertension and additional chest pain. Patient still has his gallbladder but has no abdominal pain. Nonetheless his symptoms occasionally occur after eating, and would recommend an ultrasound of his gallbladder to ensure he does not have intermittent gallbladder stone disease. I had a long and thorough discussion with the patient and his family both on his previous admission and on this admission with respect to his chronic renal insufficiency and risk for acute on chronic renal failure requiring possible temporary or permanent dialysis. Patient agreed to proceed with left heart catheterization. 2. Hyperlipidemia: Apparently the patient is able to tolerate Pravachol only and is unable to tolerate atorvastatin or other niacin based products. Continue Pravachol 20 mg p.o. nightly. 3. Thank you very much for the opportunity to participate in the cardiac care of your patient. Patient may be downgraded to PCU status. Code Visit Inpatient E&M: 07671 Subs Hosp L2
--- NOTE | 2017-09-07 09:28 | US_ITS ---
STUDY: ABDOMINAL ULTRASOUND - RIGHT UPPER QUADRANT REASON FOR VISIT: Male, 72 years old. Upper abdominal pain. TECHNIQUE: Ultrasound evaluation of the right upper quadrant was performed with real-time and static moody-scale imaging. TECHNICAL QUALITY: Adequate. COMPARISON: None. FINDINGS: Liver: The liver measures 12.8 cm. There is normal echogenicity of the liver. The bile ducts are within normal limits. There is hepatic color flow. The direction of portal flow is hepatopetal. There is no demonstrated mass lesion. Gallbladder: Normal distended gallbladder. The gallbladder wall measures 2 mm. There is a negative sonographic Bernal's sign. There is no pericholecystic fluid. There are no gallstones. Common Bile Duct (C.B.D.): The common bile duct measures 4 mm. Pancreas: Normal size of the head, body and tail of the pancreas. There is increased echogenicity of the pancreas. There is no demonstrated pancreatic mass or cyst. Right Kidney: Normal size of the right kidney. The right kidney measures 9.7 x 5.5 x 5.1 cm. Normal renal cortex. The right cortex measures 1.4 cm. There is no demonstrated renal mass or cyst. There is no right hydronephrosis. US/Gallbladder IMPRESSION: Normal right upper quadrant ultrasound examination. Electronically Signed: Adrien Jacobs MD at 16:46 EDT , Service support ,
[2017-09-07] MEDS: Clopidogrel Bisulfate 75 MG Tablet PO (09:38)
[2017-09-07] MEDS: Pantoprazole Sodium 20 MG Tablet PO (09:38)
[2017-09-07] MEDS: Furosemide 40 MG Tablet PO (09:38)
[2017-09-07] MEDS: Carvedilol 25 MG Tablet PO ×2 (09:38→21:55)
[2017-09-07 11:51] LABS: Bedside Glucose 154 mg/dL (70-110)
--- NOTE | 2017-09-07 12:09 | CASEMGMT ---
LEE BEASLEY NOTE: Pt does not wish to transfer to [facility]. [facility] Transfer Declination Form signed by pt and given to pt. Signed paper, demographics, and H/P faxed to [facility] @ . Copy placed on chart. Edda JC RN CM
--- NOTE | 2017-09-07 13:24 | PCM.CONS.R ---
Consultation - Renal 09/07/17 PCP/ Referring MD: Requesting physician: Mendez Barnard Primary care physician: Prasad Concepcion Reason for Consultation:: CKD stage 4 - History of Present Illness History of Present Illness: The patient is a 72 year old M well known to me with CKD stage 4 due to hypertension, diabetes admitted for chest pain, subscapular pain. He underwent heart cath on 09/06 and is scheduled for abdominal US to evaluate for gallstones. He had severe sharp pain at night lying in bed. Pain seems to come on after meals. BP was elevated in the ER in the 200s with pain syndrome. His BP medications were changed. He denies pain now and BP under good control. Creatinine was 3.9 on admit improved to 2.7 today with iv hydration. He has an ostomy with liquid output. He has a prerenal component. We had many discussions in the office about dialysis access placement and he refused in the past and now. He states he may not want to proceed with dialysis in the future. He has a sister with CKD stage 5 who recently had her AVF placed after multiple discussions. He may reconsider but for now refuses access. He would like to know why he is having the chest pain first. He has a history of hyperkalemia and intolerant to Diovan in the past precluding him from ACEI/ARB therapy for diabetic proteinuria. PMH for hypertension, diabetes, hypercholesterolemia, coronary artery disease status post three-vessel bypass surgery at [facility] in 2006 followed by angioplasty and stenting in 2012 and 2013 of unknown vessels. In addition the patient is a history of diverticulitis status post colectomy and colostomy bag in 2006 at the time of his bypass surgery. Echo from 08/31/17 showed an EF of 40-45%, and an RVSP of around 25 mmHg. - Allergies Allergies: Allergies atorvastatin calcium [From Lipitor] Allergy (Verified 09/04/17 22:47) Pain in joints verapamil [From Covera-HS] Allergy (Verified 09/04/17 22:47) passes out lisinopril Adverse Reaction (Verified 09/04/17 22:47) Other muscle pain Niacin Preparations Adverse Reaction (Verified 09/04/17 22:47) Pain in joints Cholesterol Meds Adverse Reaction (Uncoded 09/05/17 01:41) Other - Current Medications Current Medications: Current Medications Aspirin (Aspirin, Baby) 81 mg PO DAILY@0800 [facility] Last Admin: 09/07/17 08:39 Dose: 81 mg Carvedilol (Coreg) 25 mg PO BID [facility] Last Admin: 09/07/17 09:38 Dose: 25 mg Clopidogrel Bisulfate (Plavix) 75 mg PO DAILY [facility] Last Admin: 09/07/17 09:38 Dose: 75 mg Dextrose (D50w Syringe) 0 gm IV X1 PRN; Protocol PRN Reason: Hypoglycemia Furosemide (Lasix) 40 mg PO DAILY [facility] Last Admin: 09/07/17 09:38 Dose: 40 mg Glucagon () 1 mg IM .X1 PRN PRN Reason: Hypoglycemia Heparin Sodium (Beef Lung) (Heparin 500 Unit/5 Ml (100/Ml)) 500 unit IV UD PRN PRN Reason: HEPARIN FLUSH Hydralazine HCl (Apresoline Iv) 20 mg IV Q6H PRN PRN PRN Reason: Hypertensive Emergency Hydralazine HCl (Apresoline) 50 mg PO BID [facility] Last Admin: 09/07/17 08:39 Dose: 50 mg Nitroglycerin/Dextrose 25 mg/ (N/A) 250 mls @ 3 mls/hr IV .[id number] MICHAEL; 5 MCG/MIN PRN Reason: Protocol Last Admin: 09/06/17 19:35 Dose: 3 mls/hr Insulin Glargine (Lantus (Bkc)) 7 units SC BREAKFAST [facility] Last Admin: 09/07/17 08:39 Dose: 7 units Insulin Human Lispro (Humalog Kwikpen (Bkc)) 0 unit SQ Q6 [facility] PRN Reason: Protocol Last Admin: 09/07/17 11:48 Dose: Not Given Isosorbide Mononitrate (Imdur) 60 mg PO DAILY [facility] Last Admin: 09/07/17 08:39 Dose: 60 mg Labetalol HCl (Trandate) 10 mg IV Q6H PRN PRN PRN Reason: BLOOD PRESSURE ELEVATION Last Admin: 09/06/17 13:30 Dose: 10 mg Labetalol HCl (Trandate) 5 mg IV X1 PRN PRN Reason: SBP > 160 prior to sheath pull Lorazepam (Ativan) 1 mg IV Q4H PRN PRN PRN Reason: ANXIETY Last Admin: 09/06/17 23:29 Dose: 1 mg Magnesium Hydroxide (Milk Of Magnesia) 30 ml PO DAILY PRN PRN Reason: Constipation Metoprolol Tartrate (Lopressor (Beta Pedro)) 5 mg IV Q4H PRN PRN PRN Reason: BLOOD PRESSURE ELEVATION Morphine Sulfate () 1 mg IV Q2H PRN PRN PRN Reason: SEVERE PAIN (6-10/10) Last Admin: 09/07/17 06:15 Dose: 1 mg Nitroglycerin (Nitrostat) 0.4 mg SUBLINGUAL Q5M PRN PRN Reason: CHEST PAIN Last Admin: 09/05/17 18:20 Dose: 0.4 mg Ondansetron HCl (Zofran) 4 mg IV Q6H PRN PRN PRN Reason: NAUSEA/VOMITING Last Admin: 09/06/17 23:27 Dose: 4 mg Pantoprazole Sodium (Protonix) 40 mg PO BID MICHAEL Sodium Chloride () 5 - 30 ml IV UD PRN PRN Reason: SALINE FLUSH Last Admin: 09/06/17 01:11 Dose: 10 ml - 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 2 coronary artery stents. - Social History Smoking Status: Former smoker - Family History Sibling History Items: Diabetes, Heart Disease Review of Systems Constitutional: Denies: Anorexia, Chills, Fever, Weakness HEENT: Denies: Head Aches Cardiovascular: Reports: Chest Pain - radiating to back between shoulders. Denies: Edema, Syncope Respiratory: Denies: Cough, Shortness of Breath Gastrointestinal: Reports: - - ostomy with loose stools. Denies: Abdominal Pain, Constipation, Nausea, Vomiting Genitourinary: Denies: Dysuria Skin: Denies: Rash Neurological: Denies: Balance problems Hematologic/ Lymphatic: Reports: Anemia - Physical Exam General: Alert, Oriented x3, Cooperative, No apparent distress HEENT: PERRLA, EOMI Neck: Supple Lungs: Clear to auscultation Cardiovascular: Regular rate Abdomen: Bowel Sounds Present, Soft, Non Tender, Non-Distended, - - ostomy LLQ Extremities: No edema Skin: No rashes Musculoskeletal: No Muscle Wasting Neurological: Cranial nerves II-XII grossly intact Psych/Mental Status: Normal Affect, Appropriate, Alert and oriented to time, place, person, mood and affect Vital Signs Temp Pulse Resp BP Pulse Ox 99.2 F H 98 16 140/64 H 95 09/07/17 12:00 09/07/17 12:00 09/07/17 12:00 09/07/17 12:00 09/07/17 12:00 Oxygen Flow Rate (L/min) 2 Oxygen Delivery Method Room Air Weight: 75.2 kg Body Mass Index (BMI) 26.1 Intake and Output for Last 24 Hours 09/05/17 09/06/17 09/07/17 23:59 23:59 23:59 Intake Total 3033 / 3033 1808.5 / 1808.5 2556 / 2556 Output Total 1855 / 1855 1425 / 1425 1825 / 1825 Balance 1178 / 1178 383.5 / 383.5 731 / 731 Laboratory Tests Past 24 Hrs 09/06/17 09/07/17 09/07/17 17:45 03:25 03:25 WBC 11.3 H RBC 3.03 L Hgb 9.8 L Hct 28.8 L MCV 95.0 H MCH 32.3 H MCHC 34.0 RDW 14.1 RDW Differential 46.6 H Plt Count 179 MPV 11.8 Immature Gran % (Auto) 0.200 Neut % (Auto) 84.4 H Lymph % (Auto) 3.9 L [place] % (Auto) 7.1 Eos % (Auto) 4.3 Baso % (Auto) 0.1 Absolute Neuts (auto) 9.5 H Absolute Lymphs (auto) 0.44 L Total Counted Not Reportable Differential Comment SCANNED Sodium 143 Potassium 4.6 Chloride 112 H Carbon Dioxide 21.0 Anion Gap 10 BUN 48 H Creatinine 2.71 H Estim Creat Clear Calc 22.70 Est GFR (MDRD) Af Amer 30 L Est GFR (MDRD) Non-Af 25 L BUN/Creatinine Ratio 17.7 Glucose 197 H Calcium 8.2 L MRSA (PCR) Negative POC Glucose 09/07/17 09/07/17 09/06/17 11:41 06:01 21:29 POC Glucose 154 H 173 H 190 H 09/06/17 16:18 POC Glucose 123 H Clinical Impression(s) from Imaging Studies Chest X-Ray 09/04/17 23:11 IMPRESSION: No evidence for acute chest disease. Electronically Signed: Karson Stephens MD at 23:29 EDT , Service support , Chest CT 09/05/17 09:01 IMPRESSION: 1. Lungs are adequately inflated and clear. 2. No evidence of thoracic aortic aneurysm 3. Dextroscoliosis of the thoracic spine Electronically Signed: Saud Juarez DO at 10:57 EDT Tel , Service support , Thoracic Spine CT 09/05/17 09:01 IMPRESSION: Degenerative changes of the thoracic spine with dextroscoliosis curvature. No acute findings Electronically Signed: Saud Juarez DO at 10:58 EDT Tel , Service support , Assessment/Plan All Active Problems Chest pain (Acute) 1. Acute on CKD stage 4. Baseline creatinine 2.8 increased to 3.9 on admit improved to 2.7. Likely hemodynamic changes from liquid stools. Recent heart cath on 09/06 with stable renal fxn. No sign of contrast nephropathy. Pt declined on dialysis access in the past during our discussions in the office and refuses now. He will reconsider later but wants to have his chest pain addressed. 2. Uncontrolled HTN bp stable on current regimen 3. Chest pain with radiation to shoulder. Abd US today 4. DM2 with diabetic nephropathy, proteinuria, intolerant to ACEI due to hyperkalemia and ARB causing myalgias 5. s/p Colostomy. Continue encouraging hydration. Concerned may get dehydrated with lasix.
--- NOTE | 2017-09-07 13:33 | CON.PCM_ITS ---
Consultation - Renal 09/07/17 PCP/ Referring MD: Requesting physician: Mendez Barnard Primary care physician: Prasad Concepcion Reason for Consultation:: CKD stage 4 - History of Present Illness History of Present Illness: The patient is a 72 year old M well known to me with CKD stage 4 due to hypertension, diabetes admitted for chest pain, subscapular pain. He underwent heart cath on 09/06 and is scheduled for abdominal US to evaluate for gallstones. He had severe sharp pain at night lying in bed. Pain seems to come on after meals. BP was elevated in the ER in the 200s with pain syndrome. His BP medications were changed. He denies pain now and BP under good control. Creatinine was 3.9 on admit improved to 2.7 today with iv hydration. He has an ostomy with liquid output. He has a prerenal component. We had many discussions in the office about dialysis access placement and he refused in the past and now. He states he may not want to proceed with dialysis in the future. He has a sister with CKD stage 5 who recently had her AVF placed after multiple discussions. He may reconsider but for now refuses access. He would like to know why he is having the chest pain first. He has a history of hyperkalemia and intolerant to Diovan in the past precluding him from ACEI/ARB therapy for diabetic proteinuria. PMH for hypertension, diabetes, hypercholesterolemia, coronary artery disease status post three-vessel bypass surgery at [facility] in 2006 followed by angioplasty and stenting in 2012 and 2013 of unknown vessels. In addition the patient is a history of diverticulitis status post colectomy and colostomy bag in 2006 at the time of his bypass surgery. Echo from 08/31/17 showed an EF of 40-45%, and an RVSP of around 25 mmHg. - Allergies Allergies: Allergies atorvastatin calcium [From Lipitor] Allergy (Verified 09/04/17 22:47) Pain in joints verapamil [From Covera-HS] Allergy (Verified 09/04/17 22:47) passes out lisinopril Adverse Reaction (Verified 09/04/17 22:47) Other muscle pain Niacin Preparations Adverse Reaction (Verified 09/04/17 22:47) Pain in joints Cholesterol Meds Adverse Reaction (Uncoded 09/05/17 01:41) Other - Current Medications Current Medications: Current Medications Aspirin (Aspirin, Baby) 81 mg PO DAILY@0800 [facility] Last Admin: 09/07/17 08:39 Dose: 81 mg Carvedilol (Coreg) 25 mg PO BID [facility] Last Admin: 09/07/17 09:38 Dose: 25 mg Clopidogrel Bisulfate (Plavix) 75 mg PO DAILY [facility] Last Admin: 09/07/17 09:38 Dose: 75 mg Dextrose (D50w Syringe) 0 gm IV X1 PRN; Protocol PRN Reason: Hypoglycemia Furosemide (Lasix) 40 mg PO DAILY [facility] Last Admin: 09/07/17 09:38 Dose: 40 mg Glucagon () 1 mg IM .X1 PRN PRN Reason: Hypoglycemia Heparin Sodium (Beef Lung) (Heparin 500 Unit/5 Ml (100/Ml)) 500 unit IV UD PRN PRN Reason: HEPARIN FLUSH Hydralazine HCl (Apresoline Iv) 20 mg IV Q6H PRN PRN PRN Reason: Hypertensive Emergency Hydralazine HCl (Apresoline) 50 mg PO BID [facility] Last Admin: 09/07/17 08:39 Dose: 50 mg Nitroglycerin/Dextrose 25 mg/ (N/A) 250 mls @ 3 mls/hr IV .[id number] MICHAEL; 5 MCG/ MIN PRN Reason: Protocol Last Admin: 09/06/17 19:35 Dose: 3 mls/hr Insulin Glargine (Lantus (Bkc)) 7 units SC BREAKFAST [facility] Last Admin: 09/07/17 08:39 Dose: 7 units Insulin Human Lispro (Humalog Kwikpen (Bkc)) 0 unit SQ Q6 [facility] PRN Reason: Protocol Last Admin: 09/07/17 11:48 Dose: Not Given Isosorbide Mononitrate (Imdur) 60 mg PO DAILY [facility] Last Admin: 09/07/17 08:39 Dose: 60 mg Labetalol HCl (Trandate) 10 mg IV Q6H PRN PRN PRN Reason: BLOOD PRESSURE ELEVATION Last Admin: 09/06/17 13:30 Dose: 10 mg Labetalol HCl (Trandate) 5 mg IV X1 PRN PRN Reason: SBP > 160 prior to sheath pull Lorazepam (Ativan) 1 mg IV Q4H PRN PRN PRN Reason: ANXIETY Last Admin: 09/06/17 23:29 Dose: 1 mg Magnesium Hydroxide (Milk Of Magnesia) 30 ml PO DAILY PRN PRN Reason: Constipation Metoprolol Tartrate (Lopressor (Beta Pdero)) 5 mg IV Q4H PRN PRN PRN Reason: BLOOD PRESSURE ELEVATION Morphine Sulfate () 1 mg IV Q2H PRN PRN PRN Reason: SEVERE PAIN (6-10/10) Last Admin: 09/07/17 06:15 Dose: 1 mg Nitroglycerin (Nitrostat) 0.4 mg SUBLINGUAL Q5M PRN PRN Reason: CHEST PAIN Last Admin: 09/05/17 18:20 Dose: 0.4 mg Ondansetron HCl (Zofran) 4 mg IV Q6H PRN PRN PRN Reason: NAUSEA/VOMITING Last Admin: 09/06/17 23:27 Dose: 4 mg Pantoprazole Sodium (Protonix) 40 mg PO BID MICHAEL Sodium Chloride () 5 - 30 ml IV UD PRN PRN Reason: SALINE FLUSH Last Admin: 09/06/17 01:11 Dose: 10 ml - 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 2 coronary artery stents. - Social History Smoking Status: Former smoker - Family History Sibling History Items: Diabetes, Heart Disease Review of Systems Constitutional: Denies: Anorexia, Chills, Fever, Weakness HEENT: Denies: Head Aches Cardiovascular: Reports: Chest Pain - radiating to back between shoulders. Denies: Edema, Syncope Respiratory: Denies: Cough, Shortness of Breath Gastrointestinal: Reports: - - ostomy with loose stools. Denies: Abdominal Pain , Constipation, Nausea, Vomiting Genitourinary: Denies: Dysuria Skin: Denies: Rash Neurological: Denies: Balance problems Hematologic/ Lymphatic: Reports: Anemia - Physical Exam General: Alert, Oriented x3, Cooperative, No apparent distress HEENT: PERRLA, EOMI Neck: Supple Lungs: Clear to auscultation Cardiovascular: Regular rate Abdomen: Bowel Sounds Present, Soft, Non Tender, Non-Distended, - - ostomy LLQ Extremities: No edema Skin: No rashes Musculoskeletal: No Muscle Wasting Neurological: Cranial nerves II-XII grossly intact Psych/Mental Status: Normal Affect, Appropriate, Alert and oriented to time, place, person, mood and affect Vital Signs Temp Pulse Resp BP Pulse Ox 99.2 F H 98 16 140/64 H 95 09/07/17 12:00 09/07/17 12:00 09/07/17 12:00 09/07/17 12:00 09/07/17 12:00 Oxygen Flow Rate (L/min) 2 Oxygen Delivery Method Room Air Weight: 75.2 kg Body Mass Index (BMI) 26.1 Intake and Output for Last 24 Hours 09/05/17 09/06/17 09/07/17 23:59 23:59 23:59 Intake Total 3033 / 3033 1808.5 / 1808.5 2556 / 2556 Output Total 1855 / 1855 1425 / 1425 1825 / 1825 Balance 1178 / 1178 383.5 / 383.5 731 / 731 Laboratory Tests Past 24 Hrs 09/06/17 09/07/17 09/07/17 17:45 03:25 03:25 WBC 11.3 H RBC 3.03 L Hgb 9.8 L Hct 28.8 L MCV 95.0 H MCH 32.3 H MCHC 34.0 RDW 14.1 RDW Differential 46.6 H Plt Count 179 MPV 11.8 Immature Gran % (Auto) 0.200 Neut % (Auto) 84.4 H Lymph % (Auto) 3.9 L Nash % (Auto) 7.1 Eos % (Auto) 4.3 Baso % (Auto) 0.1 Absolute Neuts (auto) 9.5 H Absolute Lymphs (auto) 0.44 L Total Counted Not Reportable Differential Comment SCANNED Sodium 143 Potassium 4.6 Chloride 112 H Carbon Dioxide 21.0 Anion Gap 10 BUN 48 H Creatinine 2.71 H Estim Creat Clear Calc 22.70 Est GFR (MDRD) Af Amer 30 L Est GFR (MDRD) Non-Af 25 L BUN/Creatinine Ratio 17.7 Glucose 197 H Calcium 8.2 L MRSA (PCR) Negative POC Glucose 09/07/17 09/07/17 09/06/17 11:41 06:01 21:29 POC Glucose 154 H 173 H 190 H 09/06/17 16:18 POC Glucose 123 H Clinical Impression(s) from Imaging Studies Chest X-Ray 09/04/17 23:11 IMPRESSION: No evidence for acute chest disease. Electronically Signed: Karson Stephens MD at 23:29 EDT , Service support , Chest CT 09/05/17 09:01 IMPRESSION: 1. Lungs are adequately inflated and clear. 2. No evidence of thoracic aortic aneurysm 3. Dextroscoliosis of the thoracic spine Electronically Signed: Saud Juarez DO at 10:57 EDT Tel , Service support , Thoracic Spine CT 09/05/17 09:01 IMPRESSION: Degenerative changes of the thoracic spine with dextroscoliosis curvature. No acute findings Electronically Signed: Saud Juarez DO at 10:58 EDT Tel , Service support , Assessment/Plan All Active Problems Chest pain (Acute) 1. Acute on CKD stage 4. Baseline creatinine 2.8 increased to 3.9 on admit improved to 2.7. Likely hemodynamic changes from liquid stools. Recent heart cath on 09/06 with stable renal fxn. No sign of contrast nephropathy. Pt declined on dialysis access in the past during our discussions in the office and refuses now. He will reconsider later but wants to have his chest pain addressed. 2. Uncontrolled HTN bp stable on current regimen 3. Chest pain with radiation to shoulder. Abd US today 4. DM2 with diabetic nephropathy, proteinuria, intolerant to ACEI due to hyperkalemia and ARB causing myalgias 5. s/p Colostomy. Continue encouraging hydration. Concerned may get dehydrated with lasix.
[2017-09-07 16:55] LABS: Bedside Glucose 101 mg/dL (70-110)
[2017-09-07] MEDS: 0.9% NaCl Peripheral Flush Adult/Peds IV ×2 (19:36→21:56)
[2017-09-07] MEDS: Pantoprazole Sodium 40 MG Tablet PO (21:56)
[2017-09-08] VITALS (9 sets, daily range): BP systolic 129–173; BP diastolic 70–88; PULSE 91–108; RESP 16–20; TEMP 36.4–37.1; O2SAT 95–96
[2017-09-08] MEDS: LORazepam 2 MG/ML Syringe 1 MG IV ×2 (00:13→11:23)
[2017-09-08] MEDS: 0.9% NaCl Peripheral Flush Adult/Peds IV ×4 (00:14→11:25)
[2017-09-08 00:25] LABS: Bedside Glucose 132 mg/dL (70-110)
[2017-09-08] MEDS: Morphine 2 MG/ML Syringe 1 MG IV (05:20)
[2017-09-08 05:31] LABS: Bedside Glucose 107 mg/dL (70-110)
[2017-09-08 06:57] LABS: Albumin, Serum 3.2 g/dL (3.2-5.0); BUN 46 mg/dL (7-18); BUN/Creat Ratio 15.5 RATIO (10-20); Calcium,Total 8.8 mg/dL (8.5-10.1); Chloride 110 mmol/L (98-107); Creatinine, Serum 2.96 mg/dL (0.70-1.30); EST Glomerular Filtration Rate 22 mL/min (>60); Est Glom Filt Rate - Afr Amer 27 mL/min (>60); Estimated Creatinine Clearance 20.78 ml/min; Glucose 112 mg/dL (74-106); Lipase 31 U/L (73-393); Phosphorus 2.8 mg/dL (2.5-4.9); Potassium 4.1 mmol/L (3.5-5.1); Sodium Level 140 mmol/L (136-145)
--- NOTE | 2017-09-08 07:50 | PCM.PROGNOTE ---
Subjective: Chief complaint: Follow-up after admission for unstable angina/CAD, status post cardiac catheterization and hypertensive crisis. Patient seen and examined. No acute events overnight. Today, he denied anterior chest pain or upper back pain. Overnight, he mentioned that he was having pain as well as nightmares and he could not sleep. Blood pressure under better control, has been around 140-150 systolic, heart rate has been around 100, other vital signs are stable - Physical Exam General: Alert, Oriented x3, Cooperative, - - Restless. HEENT: Atraumatic, PERRLA, EOMI, Normocephalic Oral: Moist Mucosa, No Gingival or Mucosal Lesions/ Ulcerations Neck: Supple, No JVD, Negative Carotid Bruits, Trachea Midline, Thyroid Normal Size and Texture Lungs: Clear to auscultation, No rhonchi, No wheeze, No rales, Diminished Cardiovascular: Regular rate, Regular Rhythm, Normal S1, Normal S2, PMI Normal Abdomen: Bowel Sounds Present, Soft, Non Tender, Non-Distended, No Hepato-splenomegaly, - - Colostomy bag in place. Extremities: No clubbing, No cyanosis, No edema Skin: No rashes, No breakdown Lymphatic: No Cervical, Supraclavicular, or Inguinal Adenopathy Neurological: Cranial nerves II-XII grossly intact, Motor Exam 5/5 strength throughout Psych/Mental Status: Normal Affect, Restless, Alert and oriented to time, place, person, mood and affect Vital Signs Temp Pulse Resp BP Pulse Ox 97.6 F L 99 16 146/88 H 96 09/08/17 03:15 09/08/17 03:15 09/08/17 03:15 09/08/17 03:15 09/08/17 03:15 Oxygen Flow Rate (L/min) 2 Oxygen Delivery Method Room Air Weight: 166 lb 10.711 oz Body Mass Index (BMI) 26.1 Intake and Output for Last 24 Hours 09/06/17 09/07/17 09/08/17 23:59 23:59 23:59 Intake Total 1808.5 / 1808.5 2556 / 2556 600 / 600 Output Total 1425 / 1425 0 / 2050 1200 / 1200 Balance 383.5 / 383.5 506 / 506 -600 / -600 Laboratory Tests Past 24 Hrs 09/08/17 06:10 Sodium 140 Potassium 4.1 Chloride 110 H Carbon Dioxide 21.0 BUN 46 H Creatinine 2.96 H Estim Creat Clear Calc 20.78 Est GFR (MDRD) Af Amer 27 L Est GFR (MDRD) Non-Af 22 L BUN/Creatinine Ratio 15.5 Glucose 112 H Calcium 8.8 Phosphorus 2.8 Albumin 3.2 Lipase 31 L POC Glucose 09/08/17 09/08/17 09/07/17 05:28 00:11 16:47 POC Glucose 107 132 H 101 09/07/17 11:41 POC Glucose 154 H Medical Necessity - Tobacco Use Smoking Status: Former smoker Tobacco Use: Cigarettes Assessment/Plan All Active Problems Chest pain (Acute) This is a 72 years old male patient admitted because of atypical chest pain/upper back pain, found to have borderline elevated troponin and was admitted for evaluation. #1 atypical chest pain/probable unstable angina/CAD: Status post cardiac catheterization that revealed occluded SVG graft to OM, patent SVG to RCA, patent CHARLES to LAD, patent LCx stents and possibly significant proximal LM disease, no interventions was performed. Blood pressure under better control, heart rate 100, other vital signs are stable. Today, he denies any more anterior chest pain or upper back pain. Overnight, he had to ask for pain medication for upper back pain. He is on aspirin, Plavix, Coreg, isosorbide mononitrate and metoprolol. Will discuss with cardiology. #2 Hypertensive crisis: Blood pressure under better control. He is off IV Cardizem drip. He is on Coreg, Lasix, p.o. hydralazine, isosorbide mononitrate and metoprolol. Plan to continue same treatment, close monitoring. #3 stage IV chronic kidney disease: Baseline creatinine has been around 2.5-3.5. Admission creatinine was 3.69, came down to 2.9 for IV fluids. He received contrast with a heart cath yesterday. Today's creatinine is 2.96, stable at baseline. #4 CAD status post CABG: Plan as above, continue aspirin, Plavix, Coreg, and statins. #5 type 2 diabetes mellitus: Blood sugar stable, continue ADA diet, Accu-Cheks, Lantus insulin. #6 hyperlipidemia: Continue statins. #7 status post colostomy: Not sure exactly why patient had this colostomy many years ago. Abdomen exam is benign, colostomy bag is working. #8 DVT prophylaxis: SCDs. This note was generated with [employer] software. It may contain incorrect words, spelling, and punctuation that were not noted in checking the note before signing.
--- NOTE | 2017-09-08 07:54 | PN_ITS ---
Subjective: Chief complaint: Follow-up after admission for unstable angina/CAD, status post cardiac catheterization and hypertensive crisis. Patient seen and examined. No acute events overnight. Today, he denied anterior chest pain or upper back pain. Overnight, he mentioned that he was having pain as well as nightmares and he could not sleep. Blood pressure under better control, has been around 140-150 systolic, heart rate has been around 100 , other vital signs are stable - Physical Exam General: Alert, Oriented x3, Cooperative, - - Restless. HEENT: Atraumatic, PERRLA, EOMI, Normocephalic Oral: Moist Mucosa, No Gingival or Mucosal Lesions/ Ulcerations Neck: Supple, No JVD, Negative Carotid Bruits, Trachea Midline, Thyroid Normal Size and Texture Lungs: Clear to auscultation, No rhonchi, No wheeze, No rales, Diminished Cardiovascular: Regular rate, Regular Rhythm, Normal S1, Normal S2, PMI Normal Abdomen: Bowel Sounds Present, Soft, Non Tender, Non-Distended, No Hepato- splenomegaly, - - Colostomy bag in place. Extremities: No clubbing, No cyanosis, No edema Skin: No rashes, No breakdown Lymphatic: No Cervical, Supraclavicular, or Inguinal Adenopathy Neurological: Cranial nerves II-XII grossly intact, Motor Exam 5/5 strength throughout Psych/Mental Status: Normal Affect, Restless, Alert and oriented to time, place , person, mood and affect Vital Signs Temp Pulse Resp BP Pulse Ox 97.6 F L 99 16 146/88 H 96 09/08/17 03:15 09/08/17 03:15 09/08/17 03:15 09/08/17 03:15 09/08/17 03:15 Oxygen Flow Rate (L/min) 2 Oxygen Delivery Method Room Air Weight: 166 lb 10.711 oz Body Mass Index (BMI) 26.1 Intake and Output for Last 24 Hours 09/06/17 09/07/17 09/08/17 23:59 23:59 23:59 Intake Total 1808.5 / 1808.5 2556 / 2556 600 / 600 Output Total 1425 / 1425 0 / 2050 1200 / 1200 Balance 383.5 / 383.5 506 / 506 -600 / -600 Laboratory Tests Past 24 Hrs 09/08/17 06:10 Sodium 140 Potassium 4.1 Chloride 110 H Carbon Dioxide 21.0 BUN 46 H Creatinine 2.96 H Estim Creat Clear Calc 20.78 Est GFR (MDRD) Af Amer 27 L Est GFR (MDRD) Non-Af 22 L BUN/Creatinine Ratio 15.5 Glucose 112 H Calcium 8.8 Phosphorus 2.8 Albumin 3.2 Lipase 31 L POC Glucose 09/08/17 09/08/17 09/07/17 05:28 00:11 16:47 POC Glucose 107 132 H 101 09/07/17 11:41 POC Glucose 154 H Medical Necessity - Tobacco Use Smoking Status: Former smoker Tobacco Use: Cigarettes Assessment/Plan All Active Problems Chest pain (Acute) This is a 72 years old male patient admitted because of atypical chest pain/ upper back pain, found to have borderline elevated troponin and was admitted for evaluation. #1 atypical chest pain/probable unstable angina/CAD: Status post cardiac catheterization that revealed occluded SVG graft to OM, patent SVG to RCA, patent CHARLES to LAD, patent LCx stents and possibly significant proximal LM disease, no interventions was performed. Blood pressure under better control, heart rate 100, other vital signs are stable. Today, he denies any more anterior chest pain or upper back pain. Overnight, he had to ask for pain medication for upper back pain. He is on aspirin, Plavix, Coreg, isosorbide mononitrate and metoprolol. Will discuss with cardiology. #2 Hypertensive crisis: Blood pressure under better control. He is off IV Cardizem drip. He is on Coreg, Lasix, p.o. hydralazine, isosorbide mononitrate and metoprolol. Plan to continue same treatment, close monitoring. #3 stage IV chronic kidney disease: Baseline creatinine has been around 2.5- 3.5. Admission creatinine was 3.69, came down to 2.9 for IV fluids. He received contrast with a heart cath yesterday. Today's creatinine is 2.96, stable at baseline. #4 CAD status post CABG: Plan as above, continue aspirin, Plavix, Coreg, and statins. #5 type 2 diabetes mellitus: Blood sugar stable, continue ADA diet, Accu-Cheks, Lantus insulin. #6 hyperlipidemia: Continue statins. #7 status post colostomy: Not sure exactly why patient had this colostomy many years ago. Abdomen exam is benign, colostomy bag is working. #8 DVT prophylaxis: SCDs. This note was generated with [employer] software. It may contain incorrect words, spelling, and punctuation that were not noted in checking the note before signing.
--- NOTE | 2017-09-08 07:58 | PCM.PN.BLA ---
Progress Note Creatinine slightly elevated. Stopped lasix since he tends to be prerenal from liquid ostomy output.Discussed with hospitalist and cardioogy yesterday. Give 500cc fluids. BP stable. Follow up in office with me in 2 wks
[2017-09-08] MEDS: hydrALAZINE 50 MG Tablet PO (08:40)
[2017-09-08] MEDS: Carvedilol 25 MG Tablet PO (08:41)
[2017-09-08] MEDS: Isosorbide Mononitrate 60 MG Tablet PO (08:41)
[2017-09-08] MEDS: Pantoprazole Sodium 40 MG Tablet PO (08:42)
[2017-09-08] MEDS: Clopidogrel Bisulfate 75 MG Tablet PO (08:47)
[2017-09-08] MEDS: Aspirin 81 MG TAB.CHEW PO (08:47)
[2017-09-08] MEDS: Insulin Lispro 100 UNIT/ML INSULN.PEN SQ (11:13)
[2017-09-08] MEDS: dilTIAZem 25 MG/5 ML Vial 10 MG IV BOLUS (11:18)
[2017-09-08 11:45] LABS: Bedside Glucose 227 mg/dL (70-110)
--- NOTE | 2017-09-08 12:59 | PCM.DC ---
You will use the following diet at home:: Calorie/Carbohydrate Controlled (specify 1200, 1400, etc) - 1800 susan., Cardiac Your food should be the consistency of: Regular Discharge Activity: Return to Normal Activity Weight Bearing Status: Weight bearing as tolerated Call your doctor if you observe: Fever of 101 or Higher, Shortness of breath, Dizziness, Fainting spells, Swelling in the ankles, Chest pain, Increased palpitations (irregular heartbeat), Uncontrolled pain Instructions: Taking Your Blood Pressure, Controlling High Blood Pressure, Discharge Instructions: Taking Your Blood Pressure, Understanding Anxiety Disorders Allergies/Adverse Reactions: Allergies atorvastatin calcium [From Lipitor] Allergy (Verified 09/04/17 22:47) Pain in joints verapamil [From Covera-HS] Allergy (Verified 09/04/17 22:47) passes out lisinopril Adverse Reaction (Verified 09/04/17 22:47) Other muscle pain Niacin Preparations Adverse Reaction (Verified 09/04/17 22:47) Pain in joints Cholesterol Meds Adverse Reaction (Uncoded 09/05/17 01:41) Other Medications to take at Discharge Allopurinol [Zyloprim] 300 mg PO DAILY 12/02/13 Mirtazapine [Remeron] 15 mg PO QHS 12/02/13 Doxazosin Mesylate [Cardura] 2 mg PO QHS 01/30/15 Insulin Glargine,Hum.rec.anlog [Lantus] 14 unit SQ BREAKFAST 08/20/15 Venlafaxine XR [Effexor Xr] 150 mg PO DAILY 10/06/15 Clopidogrel Bisulfate [Plavix] 75 mg PO DAILY #0 12/04/15 Potassium Chloride 1 tab PO DAILY 08/31/17 Aspirin [Aspirin, Baby] 81 mg PO DAILY@0800 #30 tab.chew 09/01/17 Isosorbide Mononitrate [Imdur] 60 mg PO DAILY #30 tab 09/01/17 Pantoprazole Sodium [Protonix] 40 mg PO BID #60 tab 09/01/17 Pravastatin [Pravachol] 40 mg PO QHS #30 tab 09/01/17 ALPRAZolam [Xanax] 0.5 mg PO BID PRN PRN #30 tab 09/08/17 Carvedilol [Coreg (Beta Pedro)] 25 mg PO BID #90 tab 07/27/18 hydrALAZINE [Apresoline] 50 mg PO BID #90 tab 09/08/17 The following prescriptions were given: ALPRAZolam [Xanax] 0.5 mg PO BID PRN PRN #30 tab PRN Reason: Anxiety/Insomnia Carvedilol [Coreg (Beta Pedro)] 25 mg PO BID #90 tab hydrALAZINE [Apresoline] 50 mg PO BID #90 tab Primary Care Physician: Prasad Concepcion III, MD [Primary Care Provider] - Please follow up with your Primary Care Physician in: 1 week. Test Results: Test results from this visit will be discussed in further detail at your follow-up appointment, if applicable. Please Follow Up With: Tracey Royal DO When: 2 weeks. Please Follow Up With: Jayy Barnard MD When: Please call his office.
--- NOTE | 2017-09-08 13:02 | DCINST_ITS ---
You will use the following diet at home:: Calorie/Carbohydrate Controlled ( specify 1200, 1400, etc) - 1800 susan., Cardiac Your food should be the consistency of: Regular Discharge Activity: Return to Normal Activity Weight Bearing Status: Weight bearing as tolerated Call your doctor if you observe: Fever of 101 or Higher, Shortness of breath, Dizziness, Fainting spells, Swelling in the ankles, Chest pain, Increased palpitations (irregular heartbeat), Uncontrolled pain Instructions: Taking Your Blood Pressure, Controlling High Blood Pressure, Discharge Instructions: Taking Your Blood Pressure, Understanding Anxiety Disorders Allergies/Adverse Reactions: Allergies atorvastatin calcium [From Lipitor] Allergy (Verified 09/04/17 22:47) Pain in joints verapamil [From Covera-HS] Allergy (Verified 09/04/17 22:47) passes out lisinopril Adverse Reaction (Verified 09/04/17 22:47) Other muscle pain Niacin Preparations Adverse Reaction (Verified 09/04/17 22:47) Pain in joints Cholesterol Meds Adverse Reaction (Uncoded 09/05/17 01:41) Other Medications to take at Discharge Allopurinol [Zyloprim] 300 mg PO DAILY 12/02/13 Mirtazapine [Remeron] 15 mg PO QHS 12/02/13 Doxazosin Mesylate [Cardura] 2 mg PO QHS 01/30/15 Insulin Glargine,Hum.rec.anlog [Lantus] 14 unit SQ BREAKFAST 08/20/15 Venlafaxine XR [Effexor Xr] 150 mg PO DAILY 10/06/15 Clopidogrel Bisulfate [Plavix] 75 mg PO DAILY #0 12/04/15 Potassium Chloride 1 tab PO DAILY 08/31/17 Aspirin [Aspirin, Baby] 81 mg PO DAILY@0800 #30 tab.chew 09/01/17 Isosorbide Mononitrate [Imdur] 60 mg PO DAILY #30 tab 09/01/17 Pantoprazole Sodium [Protonix] 40 mg PO BID #60 tab 09/01/17 Pravastatin [Pravachol] 40 mg PO QHS #30 tab 09/01/17 ALPRAZolam [Xanax] 0.5 mg PO BID PRN PRN #30 tab 09/08/17 Carvedilol [Coreg (Beta Pedro)] 25 mg PO BID #90 tab 07/27/18 hydrALAZINE [Apresoline] 50 mg PO BID #90 tab 09/08/17 The following prescriptions were given: ALPRAZolam [Xanax] 0.5 mg PO BID PRN PRN #30 tab PRN Reason: Anxiety/Insomnia Carvedilol [Coreg (Beta Pedro)] 25 mg PO BID #90 tab hydrALAZINE [Apresoline] 50 mg PO BID #90 tab Primary Care Physician: Prasad Concepcion III, MD [Primary Care Provider] - Please follow up with your Primary Care Physician in: 1 week. Test Results: Test results from this visit will be discussed in further detail at your follow- up appointment, if applicable. Please Follow Up With: Tracey Royal DO When: 2 weeks. Please Follow Up With: Jayy Barnard MD When: Please call his office.
--- NOTE | 2017-09-08 13:21 | PN.CARD_ITS ---
Subjectve: Patient doing much better today, no further chest pain. Heart rate better with IV Cardizem. Telemetry showed sinus rhythm with occasional PACs. Gallbladder ultrasound negative. Objective: Vital Signs Temp Pulse Resp BP Pulse Ox 98.7 F 91 20 H 144/70 H 95 09/08/17 08:36 09/08/17 11:22 09/08/17 08:36 09/08/17 11:22 09/08/17 08:36 Oxygen Flow Rate (L/min) 2 Oxygen Delivery Method Room Air Weight: 166 lb 10.711 oz Body Mass Index (BMI) 26.1 Intake and Output for Last 24 Hours 09/06/17 09/07/17 09/08/17 23:59 23:59 23:59 Intake Total 1808.5 / 1808.5 2556 / 2556 1330 / 1330 Output Total 1425 / 1425 2050 / 2050 1675 / 1675 Balance 383.5 / 383.5 506 / 506 -345 / -345 General: Awake, Alert, Oriented x 3 HEENT: PERRL, EOMI, Sclera Non Icteric Neck: Supple, Good ROM, No Lymph Node Enlargement Lungs: Clear to auscultation Cardiovascular: Regular Rhythm, Normal S1, Normal S2, No Murmurs, No Rubs, No Gallops Vascular: No Carotid Bruits, Normal Femoral Pulses, Normal Radial Pulses, Normal Dorsalis Pedal Pulse, Normal Posterior Tibial Pulses Abdomen: Bowel Sounds Present, Soft, Non Tender, No HSM, No Organomegaly Extremities: No Cyanosis, No Clubbing, No edema Neurological: No Focal Motor or Sensory Deficit 09/08/17 06:10: Sodium 140, Potassium 4.1, Chloride 110 H, Carbon Dioxide 21.0, BUN 46 H, Creatinine 2.96 H, Est GFR (MDRD) Af Amer 27 L, Est GFR (MDRD) Non-Af 22 L, BUN/Creatinine Ratio 15.5, Glucose 112 H, Calcium 8.8, Phosphorus 2.8 Rhythm: EKG: ECHO: Stress Test: Cardiac Cath: Patent CHARLES to the LAD, patent saphenous vein graft to the RCA with mild in-stent restenosis to the saphenous vein graft to the RCA, occluded saphenous vein graft to the circumflex. Patent stents to the circumflex, possibly significant proximal ostial left main with significant eccentric calcification. PCI: CT Surgery: Holter monitor: EPS: PPM: CXR: Chest CT Scan: Medical Necessity - Tobacco Use Smoking Status: Former smoker Tobacco Use: Cigarettes Assessment/Plan 1. Coronary artery disease: Patient returns with hypertension induced mid scapular back pain similar to his previous anginal symptoms despite medical therapy. Given the patient's cardiac history, recurrence of symptoms, and patient underwent repeat left heart catheterization with graft angiography yesterday 09/06/17. This demonstrated a patent CHARLES to the LAD, a patent left circumflex stent, possibly significant calcified proximal left main, occluded saphenous vein graft to the obtuse marginal, patent saphenous vein graft to the PDA with a patent saphenous vein graft stent. LV ejection fraction was approximately 35%. Overnight the patient had significant hypertension requiring high-dose nitroglycerin, IV hydralazine, and additional antihypertensive medications. This morning his blood pressure is much better, and his nitroglycerin drip is off. Nonetheless he continues to have atypical midsternal chest pain, which appears to improve with changing of position. I believe the patient has a significant component of hypertension induced chest pain, and to that end we have increased his Coreg to 25 mg p.o. twice daily, increase his Imdur to 60 mg twice daily, started p.o. hydralazine 25 mg p.o. twice daily, and continue Lasix 40 mg a day. His creatinine is actually improved since his admission, and has had no significant deterioration since his cath yesterday. I believe he may be reaching the threshold by which his medications are working considering his end-stage renal disease. I have asked Dr. Tracey Royal his culturist to revisit the idea of placing an AV fistula in anticipation for hemodialysis for fluid removal and blood pressure control. In addition we will start the patient on a PPI medication as his symptoms appear to be recumbent in nature and occur in the evening when he is laying down , which causes a cascade of hypertension and additional chest pain. Patient still has his gallbladder but has no abdominal pain. Gallbladder ultrasound is negative. Patient underwent left heart catheterization with graft angiography yesterday which demonstrated patent CHARLES to the LAD, patent saphenous vein graft to the RCA, With mild nonobstructive in-stent restenosis of the stent to the RCA, patent stent to the circumflex and possibly significant calcified ostial left main, which most likely is not contributing to the patient's symptoms. Patient had occluded saphenous vein graft to the left circumflex which appeared to be old. Would not recommend high risk intervention of this vessel at this time. At this point I would recommend medical management only with aspirin, Plavix, Coreg, Imdur, hydralazine, and starting diltiazem CD 120 mill grams p.o. daily for heart rate control. I believe the patient's heart rate and blood pressure increased when he has atypical chest pain, the etiology of which does not appear to be cardiac at this time. Patient wishes to follow-up with Dr. Barnard going forward in light of Dr. Villeda's [facility] [place] [facility]. We will make arrangements for the patient to see us in the outpatient setting. I had a long and thorough discussion with the patient and his family both on his previous admission and on this admission with respect to his chronic renal insufficiency and risk for acute on chronic renal failure requiring possible temporary or permanent dialysis. Patient was seen by Dr. Royal yesterday who again recommended AV fistula sooner than later given his chronic renal insufficiency. His creatinine has remained stable after his catheterization. 2. Hyperlipidemia: Apparently the patient is able to tolerate Pravachol only and is unable to tolerate atorvastatin or other niacin based products. Continue Pravachol 20 mg p.o. nightly. 3. Thank you very much for the opportunity to participate in the cardiac care of your patient. Patient may be discharged home today if his heart rate and blood pressure remained stable after initiating Cardizem CD 120 mg p.o. daily. He will follow-up with Dr. Barnard going forward. Code Visit Inpatient E&M: 05430 Subs Hosp L2
[2017-09-08] MEDS: dilTIAZem CD 120 MG Capsule PO (13:27)
--- NOTE | 2017-09-08 15:23 | DCINST_ITS ---
You will use the following diet at home:: Calorie/Carbohydrate Controlled ( specify 1200, 1400, etc) - 1800 susan, Cardiac, Renal (restricted protein/sodium) Your food should be the consistency of: Regular Discharge Activity: Return to Normal Activity Weight Bearing Status: Weight bearing as tolerated Call your doctor if you observe: Fever of 101 or Higher, Shortness of breath, Dizziness, Fainting spells, Swelling in the ankles, Chest pain, Increased palpitations (irregular heartbeat), Uncontrolled pain Instructions: Controlling High Blood Pressure, Taking Your Blood Pressure, Understanding Anxiety Disorders, Discharge Instructions: Taking Your Blood Pressure Allergies/Adverse Reactions: Allergies atorvastatin calcium [From Lipitor] Allergy (Verified 09/04/17 22:47) Pain in joints verapamil [From Covera-HS] Allergy (Verified 09/04/17 22:47) passes out lisinopril Adverse Reaction (Verified 09/04/17 22:47) Other muscle pain Niacin Preparations Adverse Reaction (Verified 09/04/17 22:47) Pain in joints Cholesterol Meds Adverse Reaction (Uncoded 09/05/17 01:41) Other Medications to take at Discharge Allopurinol [Zyloprim] 300 mg PO DAILY 12/02/13 Mirtazapine [Remeron] 15 mg PO QHS 12/02/13 Doxazosin Mesylate [Cardura] 2 mg PO QHS 01/30/15 Insulin Glargine,Hum.rec.anlog [Lantus] 14 unit SQ BREAKFAST 08/20/15 Venlafaxine XR [Effexor Xr] 150 mg PO DAILY 10/06/15 Clopidogrel Bisulfate [Plavix] 75 mg PO DAILY #0 12/04/15 Potassium Chloride 1 tab PO DAILY 08/31/17 Aspirin [Aspirin, Baby] 81 mg PO DAILY@0800 #30 tab.chew 09/01/17 Isosorbide Mononitrate [Imdur] 60 mg PO DAILY #30 tab 09/01/17 Pantoprazole Sodium [Protonix] 40 mg PO BID #60 tab 09/01/17 Pravastatin [Pravachol] 40 mg PO QHS #30 tab 09/01/17 ALPRAZolam [Xanax] 0.5 mg PO BID PRN PRN #30 tab 09/08/17 Carvedilol [Coreg (Beta Pedro)] 25 mg PO BID #90 tab 09/08/17 Diltiazem CD [Cardizem CD] 120 mg PO DAILY #30 cap 09/08/17 Furosemide [Lasix] 40 mg PO DAILY #30 tab 09/08/17 hydrALAZINE [Apresoline] 50 mg PO BID #90 tab 09/08/17 The following prescriptions were given: ALPRAZolam [Xanax] 0.5 mg PO BID PRN PRN #30 tab PRN Reason: Anxiety/Insomnia Diltiazem CD [Cardizem CD] 120 mg PO DAILY #30 cap Furosemide [Lasix] 40 mg PO DAILY #30 tab Carvedilol [Coreg (Beta Pedro)] 25 mg PO BID #90 tab hydrALAZINE [Apresoline] 50 mg PO BID #90 tab Primary Care Physician: Prasad Concepcion III, MD [Primary Care Provider] - Please follow up with your Primary Care Physician in: 1 week. Test Results: Test results from this visit will be discussed in further detail at your follow- up appointment, if applicable. Please Follow Up With: Tracey Royal DO When: 2 weeks. Please Follow Up With: Jayy Barnard MD When: Please call his office.
--- NOTE | 2017-09-08 15:23 | PCM.DC.SUM ---
Discharge Date and Diagnosis Date of Admission: 09/05/17 Date of Discharge: 09/08/17 - Primary Discharge Diagnosis #1 atypical chest pain/probable unstable angina/CAD. #2 hypertensive crisis. #3 stage IV chronic kidney disease. #4 anxiety. 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 Electronically Signed: Karson Stephens MD at 23:29 EDT , Service support , Chest CT 09/05/17 09:01 IMPRESSION: 1. Lungs are adequately inflated and clear. 2. No evidence of thoracic aortic aneurysm 3. Dextroscoliosis of the thoracic spine Electronically Signed: Saud Juarez DO at 10:57 EDT Tel , Service support , Thoracic Spine CT 09/05/17 09:01 IMPRESSION: Degenerative changes of the thoracic spine with dextroscoliosis curvature. No acute findings Electronically Signed: Saud Juarez DO at 10:58 EDT Tel , Service support , Gallbladder Ultrasound 09/07/17 09:28 IMPRESSION: Normal right upper quadrant ultrasound examination. Electronically Signed: Adrien Jacobs MD at 16:46 EDT , Service support , Dr. Barnard, cardiology. Dr. Royal, nephrology. Operations: None Procedures: Cardiac catheterization, EKG Summary of Care Provided: The patient is a 72 year old M admitted because of atypical chest pain, found to have probable unstable angina. His main complaint was anterior chest pain as well as upper back pain. His EKG revealed no evidence of acute ischemic changes. His troponin was minimally elevated and maximum was 0.069. Because of his atypical presentation of the chest pain, CT scan chest without contrast as well as thoracic spine CT scan performed and were negative for thoracic aortic aneurysm, negative for acute findings that might explain his anterior chest as well as upper back pain. Cardiology consulted and patient underwent cardiac catheterization that revealed occluded SVG graft to OM, patent SVG graft to RCA, patent CHARLES to LAD, patent LCx stents and possibly significant proximal LAD disease, no interventions performed. His blood pressure was elevated consistent with hypertensive crisis. He was treated with IV Cardizem drip as well as IV nitroglycerin drip. His medication adjusted to control his blood pressure. He was treated with IV fluids before and after the cardiac catheterization because of stage IV chronic kidney disease. After the cardiac catheterization, his kidney function was monitored and his serum creatinine remained stable at his baseline. Nephrology consulted and discussed with the patient the possibility of need of hemodialysis but patient refused to have AV fistula placed and apparently, Dr. Royal has been trying to convince the patient to have AV fistula placed for probable dialysis but patient refused in the past. At this time, patient stated he would reconsider this option. Dr. Royal recommended to stop Lasix and after discussion with Dr. Barnard, we decided to keep patient on small dose of Lasix. During this hospital stay, patient has been anxious and restless which is likely contributing to his blood pressure elevations. I started him on Ativan and upon discharge, he was started on Xanax as needed small dose. Today, patient was given 1 dose of Cardizem and his heart rate came down as well as his blood pressure. His antihypertensive medication adjusted, started newly on hydralazine and Cardizem CD. Patient discharged home in a stable medical condition, discharged on increased dose of Coreg 25 mg p.o. twice daily, started on hydralazine 50 mg p.o. twice daily, continued on isosorbide mononitrate 60 mg p.o. daily, started on Cardizem CD 120 mg p.o. daily, continued on Lasix 40 mg p.o. daily, started on Xanax 0.5 mg p.o. twice daily as needed, continued his other home medications without any changes, recommended follow-up with PCP in 1 week, follow-up with nephrology in 2 weeks and follow-up with cardiology according to Dr. Barnard recommendation. Discharge Activity: Return to Normal Activity Weight Bearing Status: Weight bearing as tolerated Call your doctor if you observe: Fever of 101 or Higher, Shortness of breath, Dizziness, Fainting spells, Swelling in the ankles, Chest pain, Increased palpitations (irregular heartbeat), Uncontrolled pain Home Medications: Medications to take at Discharge Allopurinol [Zyloprim] 300 mg PO DAILY 12/02/13 Mirtazapine [Remeron] 15 mg PO QHS 12/02/13 Doxazosin Mesylate [Cardura] 2 mg PO QHS 01/30/15 Insulin Glargine,Hum.rec.anlog [Lantus] 14 unit SQ BREAKFAST 08/20/15 Venlafaxine XR [Effexor Xr] 150 mg PO DAILY 10/06/15 Clopidogrel Bisulfate [Plavix] 75 mg PO DAILY #0 12/04/15 Potassium Chloride 1 tab PO DAILY 08/31/17 Aspirin [Aspirin, Baby] 81 mg PO DAILY@0800 #30 tab.chew 09/01/17 Isosorbide Mononitrate [Imdur] 60 mg PO DAILY #30 tab 09/01/17 Pantoprazole Sodium [Protonix] 40 mg PO BID #60 tab 09/01/17 Pravastatin [Pravachol] 40 mg PO QHS #30 tab 09/01/17 ALPRAZolam [Xanax] 0.5 mg PO BID PRN PRN #30 tab 09/08/17 Carvedilol [Coreg (Beta Pedro)] 25 mg PO BID #90 tab 09/08/17 Diltiazem CD [Cardizem CD] 120 mg PO DAILY #30 cap 09/08/17 Furosemide [Lasix] 40 mg PO DAILY #30 tab 09/08/17 hydrALAZINE [Apresoline] 50 mg PO BID #90 tab 09/08/17 Following Prescrptions Were Given to Patient: ALPRAZolam [Xanax] 0.5 mg PO BID PRN PRN #30 tab PRN Reason: Anxiety/Insomnia Diltiazem CD [Cardizem CD] 120 mg PO DAILY #30 cap Furosemide [Lasix] 40 mg PO DAILY #30 tab Carvedilol [Coreg (Beta Pedro)] 25 mg PO BID #90 tab hydrALAZINE [Apresoline] 50 mg PO BID #90 tab Primary Care Physician: Prasad Concepcion III, MD [Primary Care Provider] - Please follow up with your Primary Care Physician in: 1 week. Please Follow Up With: Tracey Royal DO When: 2 weeks. Please Follow Up With: Jayy Barnard MD When: Please call his office. Patient Instructions: Controlling High Blood Pressure, Taking Your Blood Pressure, Understanding Anxiety Disorders, Discharge Instructions: Taking Your Blood Pressure Disposition: Home Minutes spent on discharge:: 35 Patient Condition:: Stable Medical Necessity - Tobacco Use Smoking Status: Former smoker Tobacco Use: Cigarettes Meaningful Use Info Meaningful Use Diagnoses (Choose all that apply): None applicable Code Visit Inpatient E&M: 58233 Disch Hosp
--- NOTE | 2017-09-08 15:31 | DS.PCM_ITS ---
Discharge Date and Diagnosis Date of Admission: 09/05/17 Date of Discharge: 09/08/17 - Primary Discharge Diagnosis #1 atypical chest pain/probable unstable angina/CAD. #2 hypertensive crisis. #3 stage IV chronic kidney disease. #4 anxiety. 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 Electronically Signed: Karson Stephens MD at 23:29 EDT , Service support , Chest CT 09/05/17 09:01 IMPRESSION: 1. Lungs are adequately inflated and clear. 2. No evidence of thoracic aortic aneurysm 3. Dextroscoliosis of the thoracic spine Electronically Signed: Saud Juarez DO at 10:57 EDT Tel , Service support , Thoracic Spine CT 09/05/17 09:01 IMPRESSION: Degenerative changes of the thoracic spine with dextroscoliosis curvature. No acute findings Electronically Signed: Saud Juarez DO at 10:58 EDT Tel , Service support , Gallbladder Ultrasound 09/07/17 09:28 IMPRESSION: Normal right upper quadrant ultrasound examination. Electronically Signed: Adrien Jacobs MD at 16:46 EDT , Service support , Dr. Barnard, cardiology. Dr. Royal, nephrology. Operations: None Procedures: Cardiac catheterization, EKG Summary of Care Provided: The patient is a 72 year old M admitted because of atypical chest pain, found to have probable unstable angina. His main complaint was anterior chest pain as well as upper back pain. His EKG revealed no evidence of acute ischemic changes. His troponin was minimally elevated and maximum was 0.069. Because of his atypical presentation of the chest pain, CT scan chest without contrast as well as thoracic spine CT scan performed and were negative for thoracic aortic aneurysm, negative for acute findings that might explain his anterior chest as well as upper back pain. Cardiology consulted and patient underwent cardiac catheterization that revealed occluded SVG graft to OM, patent SVG graft to RCA, patent CHARLES to LAD, patent LCx stents and possibly significant proximal LAD disease, no interventions performed. His blood pressure was elevated consistent with hypertensive crisis. He was treated with IV Cardizem drip as well as IV nitroglycerin drip. His medication adjusted to control his blood pressure. He was treated with IV fluids before and after the cardiac catheterization because of stage IV chronic kidney disease. After the cardiac catheterization, his kidney function was monitored and his serum creatinine remained stable at his baseline. Nephrology consulted and discussed with the patient the possibility of need of hemodialysis but patient refused to have AV fistula placed and apparently, Dr. Royal has been trying to convince the patient to have AV fistula placed for probable dialysis but patient refused in the past. At this time, patient stated he would reconsider this option. Dr. Royal recommended to stop Lasix and after discussion with Dr. Barnard, we decided to keep patient on small dose of Lasix. During this hospital stay, patient has been anxious and restless which is likely contributing to his blood pressure elevations. I started him on Ativan and upon discharge, he was started on Xanax as needed small dose. Today, patient was given 1 dose of Cardizem and his heart rate came down as well as his blood pressure. His antihypertensive medication adjusted, started newly on hydralazine and Cardizem CD. Patient discharged home in a stable medical condition, discharged on increased dose of Coreg 25 mg p.o. twice daily, started on hydralazine 50 mg p.o. twice daily, continued on isosorbide mononitrate 60 mg p.o. daily, started on Cardizem CD 120 mg p.o. daily, continued on Lasix 40 mg p.o. daily, started on Xanax 0.5 mg p.o. twice daily as needed, continued his other home medications without any changes, recommended follow-up with PCP in 1 week, follow-up with nephrology in 2 weeks and follow-up with cardiology according to Dr. Barnard recommendation. Discharge Activity: Return to Normal Activity Weight Bearing Status: Weight bearing as tolerated Call your doctor if you observe: Fever of 101 or Higher, Shortness of breath, Dizziness, Fainting spells, Swelling in the ankles, Chest pain, Increased palpitations (irregular heartbeat), Uncontrolled pain Home Medications: Medications to take at Discharge Allopurinol [Zyloprim] 300 mg PO DAILY 12/02/13 Mirtazapine [Remeron] 15 mg PO QHS 12/02/13 Doxazosin Mesylate [Cardura] 2 mg PO QHS 01/30/15 Insulin Glargine,Hum.rec.anlog [Lantus] 14 unit SQ BREAKFAST 08/20/15 Venlafaxine XR [Effexor Xr] 150 mg PO DAILY 10/06/15 Clopidogrel Bisulfate [Plavix] 75 mg PO DAILY #0 12/04/15 Potassium Chloride 1 tab PO DAILY 08/31/17 Aspirin [Aspirin, Baby] 81 mg PO DAILY@0800 #30 tab.chew 09/01/17 Isosorbide Mononitrate [Imdur] 60 mg PO DAILY #30 tab 09/01/17 Pantoprazole Sodium [Protonix] 40 mg PO BID #60 tab 09/01/17 Pravastatin [Pravachol] 40 mg PO QHS #30 tab 09/01/17 ALPRAZolam [Xanax] 0.5 mg PO BID PRN PRN #30 tab 09/08/17 Carvedilol [Coreg (Beta Pedro)] 25 mg PO BID #90 tab 09/08/17 Diltiazem CD [Cardizem CD] 120 mg PO DAILY #30 cap 09/08/17 Furosemide [Lasix] 40 mg PO DAILY #30 tab 09/08/17 hydrALAZINE [Apresoline] 50 mg PO BID #90 tab 09/08/17 Following Prescrptions Were Given to Patient: ALPRAZolam [Xanax] 0.5 mg PO BID PRN PRN #30 tab PRN Reason: Anxiety/Insomnia Diltiazem CD [Cardizem CD] 120 mg PO DAILY #30 cap Furosemide [Lasix] 40 mg PO DAILY #30 tab Carvedilol [Coreg (Beta Pedro)] 25 mg PO BID #90 tab hydrALAZINE [Apresoline] 50 mg PO BID #90 tab Primary Care Physician: Prasad Concepcion III, MD [Primary Care Provider] - Please follow up with your Primary Care Physician in: 1 week. Please Follow Up With: Tracey Royal DO When: 2 weeks. Please Follow Up With: Jayy Barnard MD When: Please call his office. Patient Instructions: Controlling High Blood Pressure, Taking Your Blood Pressure, Understanding Anxiety Disorders, Discharge Instructions: Taking Your Blood Pressure Disposition: Home Minutes spent on discharge:: 35 Patient Condition:: Stable Medical Necessity - Tobacco Use Smoking Status: Former smoker Tobacco Use: Cigarettes Meaningful Use Info Meaningful Use Diagnoses (Choose all that apply): None applicable Code Visit Inpatient E&M: 00045 Disch Hosp
--- NOTE | 2017-09-11 17:14 | CASEMGMT ---
LEE BEASLEY Discharge Follow-up Phone Call: ABRAHAM: [employer]: 4 Call Date: 09/11/17 Discharge Date: 09/08/17 Time of Call: 1708 Duration: 6 ~ Admitting Diagnosis: Chest pain/CAD/Unstable angina, CKD Stage 4 Follow up phone call made by this LEE BEASLEY. Pt able and willing to discuss his post discharge plan. Pt reports still feeling weak but overall is feeling better. States he continues to have pain when he lies on his left side. States the pain only occurs when he lies on his left side and the pain is relieved with repositioning off the left side. Pt states he picked up his prescriptions without difficulty and denies any questions regarding them. Reports his BP to have been: 117/58, 108/58, 127/63, and 126/62. Pt reports he does get dizzy at times and that he is used to his blood pressure being much higher and feels he will get used to it. Pt states he has made his followup appointment with Dr. Concepcion for next week and he plans to call Dr Barnard's office tomorrow to set up an appointment. Pt states he already has an appointment with Dr. Royal set up that he will keep. Pt denies any further questions, concerns or needs. Chana Siegel RN
== END 2017-09-08 15:57 | disposition home or self-care (01) | DRG 287 ==
LOC: ED 23:28 → PCU 09-05 00:50 → ICU 09-06 15:05 → PCU 09-07 14:52
PROVIDERS: Internal Medicine Cardiovascular Disease; Internal Medicine Nephrology; Admitting Provider Family Medicine; Emergency Provider Emergency Medicine; Family Provider Family Medicine; PCP Family Medicine; Visit Provider Hospitalist
DX: I25.110 Atherosclerotic heart disease of native coronary artery with unstable angina pectoris (principal); I16.9 Hypertensive crisis, unspecified; I13.0 Hypertensive heart and chronic kidney disease with heart failure and stage 1 through stage 4 chronic kidney disease, or unspecified chronic kidney disease; N18.4 Chronic kidney disease, stage 4 (severe); I50.20 Unspecified systolic (congestive) heart failure; Z87.891 Personal history of nicotine dependence; E11.22 Type 2 diabetes mellitus with diabetic chronic kidney disease; F41.9 Anxiety disorder, unspecified; E11.40 Type 2 diabetes mellitus with diabetic neuropathy, unspecified; E87.5 Hyperkalemia; E78.5 Hyperlipidemia, unspecified; F32.9 Major depressive disorder, single episode, unspecified; K21.9 Gastro-esophageal reflux disease without esophagitis; R80.9 Proteinuria, unspecified; Z93.3 Colostomy status; Z95.1 Presence of aortocoronary bypass graft; Z95.5 Presence of coronary angioplasty implant and graft; Z79.02 Long term (current) use of antithrombotics/antiplatelets; Z86.711 Personal history of pulmonary embolism; Z79.4 Long term (current) use of insulin; Z79.82 Long term (current) use of aspirin; Z79.899 Other long term (current) drug therapy
CPT/HCPCS: 36415; 71046; 71250; 72128; 76705; 80048; 80053; 80069; 81001; 82962; 83690; 84484; 85025; 85610; 85730; 87641; 93005; 93459; 97161; 97165; 97802; 99152; 99153; 99284; J7030; Q9967; A4216; C1769; C1894; J2405

== ENCOUNTER → 2017-09-14 11:24 | Outpatient (CLI) | payer MEDICARE, SELFPAY ==
[2017-09-14 12:26] LABS: BUN 39 mg/dL (7-18); BUN/Creat Ratio 13.6 RATIO (10-20); Calcium,Total 8.5 mg/dL (8.5-10.1); Chloride 107 mmol/L (98-107); Creatinine, Serum 2.87 mg/dL (0.70-1.30); EST Glomerular Filtration Rate 23 mL/min (>60); Est Glom Filt Rate - Afr Amer 28 mL/min (>60); Glucose 214 mg/dL (74-106); Phosphorus 2.7 mg/dL (2.5-4.9); Potassium 4.4 mmol/L (3.5-5.1); Sodium Level 138 mmol/L (136-145)
== END ==
PROVIDERS: Family Provider Family Medicine; PCP Family Medicine; Visit Provider Internal Medicine Nephrology
DX: N17.9 Acute kidney failure, unspecified (principal)
CPT/HCPCS: 36415; 80069

== ENCOUNTER → 2017-09-22 11:15 | Outpatient (CLI) | payer MEDICARE, SELFPAY ==
[2017-09-22 11:19] LABS: Bacteria 0 SEEN /hpf (None Seen); Mucous, Urine 0 SEEN /hpf (<or=2+); Red Blood Cells-Urine 0 SEEN /hpf (0-5); Squamous Epithelial Cells - UA 0 SEEN /hpf (0-5)
[2017-09-22 12:01] LABS: Color, Urine Yellow (Yellow); Glucose, Dipstick 250 mg/dl (Normal); Hematocrit 30.2 % (40-54); Hemoglobin 9.7 g/dl (13.0-16.5); Ketone-Dipstick Negative (Negative); Leukocyte Esterase-Dipstick Negative /ul (Negative); Mean Corp Hgb Conc 32.1 g/gl (32-36); Mean Corpuscular Hgb 30.4 pg (27.0-32.0); Mean Corpuscular Volume 94.7 fL (80-94); Nitrite-Dipstick Negative (Negative); Occult Blood-Urine 25 /ul (Negative); Platelet Count 311 K/mm3 (150-450); Protein-Dipstick 500 mg/dl (Negative); RBC Distribution Width CV 14.6 % (11.6-14.6); RBC Distribution Width SD 50.4 fl (35.1-43.9); Red Blood Count 3.19 M/mm3 (4.6-6.2); Scan Indicated on CBC? Y/N NO; Specific Gravity, Urine 1.015 (1.002-1.030); Urine Bilirubin Dipstick Negative (Negative); Urine Clarity Clear (Clear); Urine Urobilinogen 1 mg/dl (Normal)
[2017-09-22 12:07] LABS: International Normalized Ratio 1.1; Prothrombin Time (Protime)PT. 13.9 SECONDS (11.7-14.9)
[2017-09-22 12:26] LABS: BUN 33 mg/dL (7-18); BUN/Creat Ratio 11.1 RATIO (10-20); Creatinine, Serum 2.98 mg/dL (0.70-1.30); EST Glomerular Filtration Rate 22 mL/min (>60); Est Glom Filt Rate - Afr Amer 27 mL/min (>60); Glucose 233 mg/dL (74-106); White Blood Cells 0-5 SEEN /hpf (0-5)
[2017-09-22 12:27] LABS: Anion Gap 10 (5-15); Calcium,Total 8.6 mg/dL (8.5-10.1); Chloride 106 mmol/L (98-107); Potassium 4.5 mmol/L (3.5-5.1); Sodium Level 140 mmol/L (136-145)
== END ==
PROVIDERS: Family Provider Family Medicine; PCP Family Medicine; Visit Provider Internal Medicine Cardiovascular Disease
DX: I25.5 Ischemic cardiomyopathy (principal); I51.9 Heart disease, unspecified
CPT/HCPCS: 36415; 80048; 81001; 85027; 85610

== ENCOUNTER 2017-10-05 09:33 | Day surgery (SDC) | payer MEDICARE, SELFPAY ==
[2017-10-04 10:41] VITALS: BMI 27.1
[2017-10-05] VITALS (15 sets, daily range): BP systolic 149–187; BP diastolic 67–87; PULSE 72–100; RESP 16–20; TEMP 36.3–36.7; O2SAT 96–99
--- NOTE | 2017-10-05 12:34 | PCM.OP.BLANK ---
Operative Report Date of Procedure: 10/05/17 Preoperative diagnosis implantation of Single chamber, single coil ICD Postoperative diagnosis same as above After informed consent and IV antibiotics the patient was brought to the [place] catheterization laboratory. The left side of the chest was prepped and draped in the usual sterile manner. The patient was sedated with intermittent boluses of IV Versed fentanyl and propofol as well as subcutaneous 1% lidocaine. An incision was made inferior to the clavicle to accommodate the size of the hardware device. The pocket was created using blunt and Bovie dissection. Hemostasis was obtained. Using the Seldinger technique the axillary vein was cannulated once and a guidewire was advanced under fluoroscopic guidance. Over the guidewire a sheath was advanced. Through this sheath, the electrode was positioned under fluoroscopic guidance into the right ventricle and was actively fixated. Once actively fixated, the lead was tested to check for proper sensing, capture threshold, impedance and to exclude diaphragmatic stimulation. Once the lead was implanted and all electrical parameters were confirmed to be functioning normally with appropriate values, the leads was then sutured to the pectoralis muscle with 2-0 silk on the Silastic collar ?2. The sponge and needle count were correct. Hemostasis was obtained. Antibiotic solution was used to flush the pocket. The new device was brought to the field. The lead was placed in the appropriate position of the header of the device and were secured by the setscrews and confirmed by the tug test. The device and the leads were then placed in the pocket. Pocket was closed with a deep layer of running 2-0 Vicryl, superficial layer of running 4-0 Vicryl and skin with Steri-Strips that were covered with a rolled 4 x 4's and Tegaderm. The patient left the lab with the device programmed to chronic parameters. There were no complications. Lead and device serial and model numbers are available in the chart documents provided by the device company life assurance representative procedure summary.
[2017-10-05] MEDS: Doxazosin 1 MG Tablet 2 MG PO (23:15)
[2017-10-05] MEDS: hydrALAZINE 50 MG Tablet PO (23:15)
[2017-10-05] MEDS: Carvedilol 25 MG Tablet PO (23:16)
[2017-10-05] MEDS: Mirtazapine 15 MG Tablet PO (23:17)
[2017-10-05] MEDS: Pantoprazole Sodium 40 MG Tablet PO (23:17)
[2017-10-05] MEDS: HYDROcodone Bitartrate/Apap 5/325 Tablet PO (23:34)
[2017-10-06 03:18] VITALS: PULSE 77
[2017-10-06 05:15] VITALS: BP 177/85; PULSE 88; RESP 20; TEMP 36.6; O2SAT 96
[2017-10-06 06:55] VITALS: PULSE 86
[2017-10-06 07:16] LABS: Hematocrit 29.1 % (40-54); Hemoglobin 9.5 g/dl (13.0-16.5)
[2017-10-06 07:27] LABS: Anion Gap 14 (5-15); BUN 42 mg/dL (7-18); BUN/Creat Ratio 14.7 RATIO (10-20); Calcium,Total 8.5 mg/dL (8.5-10.1); Chloride 109 mmol/L (98-107); Creatinine, Serum 2.86 mg/dL (0.70-1.30); EST Glomerular Filtration Rate 23 mL/min (>60); Est Glom Filt Rate - Afr Amer 28 mL/min (>60); Estimated Creatinine Clearance 21.51 ml/min; Glucose 130 mg/dL (74-106); Potassium 4.3 mmol/L (3.5-5.1); Sodium Level 142 mmol/L (136-145)
[2017-10-06] MEDS: Aspirin 81 MG TAB.CHEW PO (08:09)
[2017-10-06] MEDS: Allopurinol 300 MG Tablet PO (08:09)
[2017-10-06 08:16] LABS: Bedside Glucose 121 mg/dL (70-110)
[2017-10-06 09:15] VITALS: BP 151/90; PULSE 98; RESP 16; TEMP 36.7; O2SAT 96
[2017-10-06] MEDS: dilTIAZem CD 120 MG Capsule PO (09:15)
[2017-10-06] MEDS: Isosorbide Mononitrate 60 MG Tablet PO (09:15)
[2017-10-06] MEDS: Furosemide 40 MG Tablet PO (09:15)
[2017-10-06] MEDS: Pantoprazole Sodium 40 MG Tablet PO (09:15)
[2017-10-06] MEDS: hydrALAZINE 50 MG Tablet PO (09:15)
[2017-10-06] MEDS: Venlafaxine XR 150 MG Capsule PO (09:15)
[2017-10-06] MEDS: Carvedilol 25 MG Tablet PO (09:15)
[2017-10-06] MEDS: Clopidogrel Bisulfate 75 MG Tablet PO (09:15)
--- NOTE | 2017-10-06 09:53 | PCM.PN.CARD ---
Subjectve: Patient feels great this morning. AICD placement without difficulty. Chest x-ray reviewed and shows no evidence of pneumothorax. Lungs are clear bilaterally, cardiac exam is regular rate and rhythm, telemetry showed normal sinus rhythm, rare PVCs. Objective: Vital Signs Temp Pulse Resp BP Pulse Ox 98.0 F 98 16 151/90 H 96 10/06/17 09:15 10/06/17 09:15 10/06/17 09:15 10/06/17 09:15 10/06/17 09:15 Oxygen Flow Rate (L/min) 1 Oxygen Delivery Method Room Air Weight: 173 lb 2 oz Body Mass Index (BMI) 27.1 Intake and Output for Last 24 Hours 10/04/17 10/05/17 10/06/17 23:59 23:59 23:59 Intake Total 840 / 840 50 / 50 Output Total 800 / 800 500 / 500 Balance 40 / 40 -450 / -450 General: Awake, Alert, Oriented x 3 HEENT: PERRL, EOMI, Sclera Non Icteric Neck: Supple, Good ROM, No Lymph Node Enlargement Lungs: Clear to auscultation Cardiovascular: Regular Rhythm, Normal S1, Normal S2, No Murmurs, No Rubs, No Gallops Vascular: No Carotid Bruits, Normal Femoral Pulses, Normal Radial Pulses, Normal Dorsalis Pedal Pulse, Normal Posterior Tibial Pulses Abdomen: Bowel Sounds Present, Soft, Non Tender, No HSM, No Organomegaly Extremities: No Cyanosis, No Clubbing, No edema Neurological: No Focal Motor or Sensory Deficit 10/06/17 06:30: Hgb 9.5 L, Hct 29.1 L 10/06/17 06:30: Sodium 142, Potassium 4.3, Chloride 109 H, Carbon Dioxide 19.0 L, Anion Gap 14, BUN 42 H, Creatinine 2.86 H, Est GFR (MDRD) Af Amer 28 L, Est GFR (MDRD) Non-Af 23 L, BUN/Creatinine Ratio 14.7, Glucose 130 H, Calcium 8.5 Rhythm: EKG: ECHO: Stress Test: Cardiac Cath: PCI: CT Surgery: Holter monitor: EPS: PPM: CXR: Chest CT Scan: Medical Necessity - Tobacco Use Smoking Status: Former smoker Assessment/Plan 1. Ischemic heart myopathy: The patient is status post AICD placement without difficulty yesterday. His chest x-ray shows no evidence of pneumothorax, and his pocket appears to be clean/dry/intact without evidence of hematoma. Defibrillator interrogation this morning showed appropriate thresholds, and no issues mechanically. Patient will continue his Coreg, antihypertensive medications, to be discharged home today. He will follow-up with Dr. Barnard going forward. 2. Patient may be discharged home. Code Visit Inpatient E&M: 12162 Subs Hosp L2
== END 2017-10-06 09:57 | disposition home or self-care (01) ==
LOC: CLSP 09:34 → PCU 13:13
PROVIDERS: Family Provider Family Medicine; PCP Family Medicine; Visit Provider Internal Medicine Cardiovascular Disease
DX: I51.9 Heart disease, unspecified (principal); Z00.6 Encounter for examination for normal comparison and control in clinical research program; I25.118 Atherosclerotic heart disease of native coronary artery with other forms of angina pectoris; I12.9 Hypertensive chronic kidney disease with stage 1 through stage 4 chronic kidney disease, or unspecified chronic kidney disease; E11.22 Type 2 diabetes mellitus with diabetic chronic kidney disease; N18.4 Chronic kidney disease, stage 4 (severe); Z86.39 Personal history of other endocrine, nutritional and metabolic disease; E78.00 Pure hypercholesterolemia, unspecified; Z95.1 Presence of aortocoronary bypass graft; Z79.4 Long term (current) use of insulin; Z79.02 Long term (current) use of antithrombotics/antiplatelets; Z79.82 Long term (current) use of aspirin; Z79.899 Other long term (current) drug therapy; Z86.711 Personal history of pulmonary embolism; Z87.891 Personal history of nicotine dependence
CPT/HCPCS: 33249; 36415; 71045; 71046; 80048; 82962; 85014; 85018; 93641; 99152; 99153; J7040; J7050; A4216; C1894

== ENCOUNTER 2017-11-07 18:51 | Inpatient (IN) | payer MEDICARE, SELFPAY ==
[2017-11-07] VITALS (10 sets, daily range): BP systolic 171–212; BP diastolic 89–111; PULSE 90–109; RESP 15–22; TEMP 36.4–36.9; O2SAT 96–100; BMI 26.6; BMI 21.6
--- NOTE | 2017-11-07 18:56 | RAD_ITS ---
STUDY: X-RAY CHEST REASON FOR EXAM: Male, 72 years old. SOB AND CHEST PAINS. HX OF TRIPLE BYPASS IN 2006, AND PLACED 3 STENTS WELL PER PATIENT. TECHNIQUE: Single frontal view of the chest. COMPARISON: 10.06.17 FINDINGS: Chronic appearing increased interstitial lung markings. There is a left sided pacemaker batterypack. Multiple median sternotomy wires are noted consistent for cardiac surgery. There is no demonstrated pleural abnormality. Stable severe scoliosis of the thoracic spine. Enlarged heart size. Normal mediastinum and giovanni. Normal visualized pulmonary arteries. There is atherosclerotic calcification of the aortic arch with tortuosity. There are diffuse degenerative changes of the visualized thoracic spine. There is degenerative osteoarthritis of the bilateral shoulders. There is no demonstrated abnormality of the visualized soft tissue structures of the upper abdomen. RAD/Chest 1 View (Portable) IMPRESSION: There are no acute findings. Electronically Signed: Shai Heredia MD at 19:12 EDT , Service support ,
--- NOTE | 2017-11-07 18:56 | EKG12_ITS ---
Test Reason : CP Blood Pressure : / mmHG Vent. Rate : 107 BPM Atrial Rate : 107 BPM P-R Int : 168 ms QRS Dur : 104 ms QT Int : 370 ms P-R-T Axes : 060 046 -79 degrees QTc Int : 493 ms Sinus tachycardia Marked ST abnormality, possible inferior-lateral subendocardial injury Abnormal ECG Confirmed by RODRICK CABRERA, ALAINA ([id number]), video editor TEA BATISTA ([id number]) on 11/10/2017 2:19:17 PM Referred By: TERESITA/YOLANDA Confirmed By:ALAINA MENSAH MD
[2017-11-07] MEDS: Aspirin 81 MG TAB.CHEW 324 MG PO (19:22)
[2017-11-07 19:27] LABS: Anion Gap 11 (5-15); BUN 43 mg/dL (7-18); BUN/Creat Ratio 14.4 RATIO (10-20); Calcium,Total 8.8 mg/dL (8.5-10.1); Chloride 105 mmol/L (98-107); Creatinine, Serum 2.99 mg/dL (0.70-1.30); EST Glomerular Filtration Rate 22 mL/min (>60); Est Glom Filt Rate - Afr Amer 27 mL/min (>60); Estimated Creatinine Clearance 20.57 ml/min; Glucose 236 mg/dL (74-106); Potassium 3.9 mmol/L (3.5-5.1); Sodium Level 136 mmol/L (136-145)
[2017-11-07 19:30] LABS: Absolute Lymphocyte Count 1.05 X10^3/ul (0.83-4.51); Absolute Neutrophil Count 5.5 X10^3/uL (2.0-7.7); Differential Indicated SCAN CRITERIA MET; Eosinophil# 2.18 X10^3/uL; Eosinophils% 22.6 % (0-5); Hematocrit 30.4 % (40-54); Hemoglobin 10.1 g/dl (13.0-16.5); Lymphocyte # 1.05 X10^3/ul (4.0); Lymphocyte % 10.9 % (19-41); Mean Corp Hgb Conc 33.2 g/gl (32-36); Mean Corpuscular Hgb 31.3 pg (27.0-32.0); Mean Corpuscular Volume 94.1 fL (80-94); Mean Platelet Vol. 11.3 fl (6.2-12.0); Monocyte# 0.81 X10^3/uL; Monocyte% 8.4 % (0-10); Neutrophil # 5.48 X10^3/uL (2.7-7.7); Neutrophil % 56.9 % (47-70); POSITIVE COUNT NO; POSITIVE DIFFERENTIAL YES; POSITIVE MORPHOLOGY NO; Platelet Count 167 K/mm3 (150-450); RBC Distribution Width CV 14.6 % (11.6-14.6); RBC Distribution Width SD 47.9 fl (35.1-43.9); Red Blood Count 3.23 M/mm3 (4.6-6.2); White Blood Count 9.6 K/mm3 (4.4-11.0)
[2017-11-07 20:33] LABS: Differential Comment SCANNED
--- NOTE | 2017-11-07 21:41 | PCM.HP.STD ---
Problem List (1) NSTEMI (non-ST elevated myocardial infarction) Status: Acute (2) Chest pain Status: Acute Qualifiers: Chest pain type: unspecified Qualified Code(s): R07.9 - Chest pain, unspecified (3) Implantable cardioverter-defibrillator (ICD) in situ Status: Chronic (4) Ischemic cardiomyopathy Status: Chronic (5) History of coronary artery bypass graft x 3 Status: Chronic Comment: CHARLES to LAD, SVG to RCA and SVG to CX per Dr. Buitrago @ [facility] (6) Atherosclerotic heart disease of [place] coronary artery with other forms of angina pectoris Status: Chronic (7) DM2 (diabetes mellitus, type 2) Status: Chronic Qualifiers: Diabetes mellitus retirement insulin use: with retirement use Diabetes mellitus complication status: with unspecified complications Qualified Code(s): E11.8 - Type 2 diabetes mellitus with unspecified complications; Z79.4 - long-term (current) use of insulin (8) CKD (chronic kidney disease), stage IV Status: Chronic (9) History of pulmonary embolism Status: Chronic Comment: Provoked (10) History of hypertension Status: Chronic (11) History of hyperlipidemia Status: Chronic (12) History of gout Status: Chronic (13) Agent orange exposure Status: Chronic (14) History of colostomy Status: Chronic History of Present Illness Date of Admission: 11/07/17 Chief Complaint: Chest pain The patient is a 72 y/o M w/ PMHx: CKD stage IV, Diabetes mellitus type II, HTN, HLD, Gout, CAD s/p PCI 2012/2013 (3 total) as well as CABG x 3, Hx Provoked PE, s/p Colostomy Status, AOCD,, Ischemic Cardiomyopathy s/p recent AICD placement on 10/05/17 who presents to the [facility] ED on 11/07/17 with history of several months of ongoing intermittent exertional chest pain in addition to chest discomfort awakening him from sleep with associated diaphoresis, dyspnea primarily in the midsternal region and in addition to between the shoulder blades, worse with activity with additionally associated nausea without emesis with worsened severity upon day of ED presentation. He noted chest pain at worst 10/10, currently following ED interventions 0/10. Work-up in the ED included T 97.6, heart rate initially 109--> 97, BP 171/106, respiratory rate 21, 98% on room air, CBC with WBC 9.6, hemoglobin 10.1, platelet 167 without market left shift, BMP with carbon dioxide 20, BUN/Cr 43/2.99, glucose 236, troponin 0.469, EKG with new EKG changes in leads II, 3, aVF with ST depression and T wave inversions changed from prior, chest x-ray with no acute findings. In the ED patient administered aspirin, NG and initiated on heparin drip per Cardiology request. Cardiology consulted per ED and reviewed case w/ planned ICU admission and evaluation in AM for possible catheterization. Past Medical History Past Medical History (Chronic Problems): Chronic Problems (Last Reviewed 09/22/17 @ 08:20 by Bessy Lr) Implantable cardioverter-defibrillator (ICD) in situ (Chronic) Ischemic cardiomyopathy (Chronic) 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 Buitrago @ [facility] History of left heart catheterization (Chronic 09/06/17) Atherosclerotic heart disease of [place] coronary artery with other forms of angina pectoris (Chronic) DM2 (diabetes mellitus, type 2) (Chronic) CKD (chronic kidney disease), stage IV (Chronic) History of pulmonary embolism (Chronic) Provoked History of hypertension (Chronic) History of hyperlipidemia (Chronic) History of gout (Chronic) 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) Medical History: Medical History (Last Updated 10/13/17 @ 15:46 by Nat Persaud) Implantable cardioverter-defibrillator (ICD) in situ (Chronic) Z95.810 Ischemic cardiomyopathy (Chronic) I25.5 Atherosclerotic heart disease of [place] coronary artery with other forms of angina pectoris (Chronic) I25.118 DM2 (diabetes mellitus, type 2) (Chronic) E11.9 CKD (chronic kidney disease), stage IV (Chronic) N18.4 History of pulmonary embolism (Chronic) Z86.711 Provoked History of hypertension (Chronic) Z86.79 History of hyperlipidemia (Chronic) Z86.39 History of gout (Chronic) Z87.39 Agent orange exposure (Chronic) Z77.098 Allergies atorvastatin calcium [From Lipitor] Allergy (Verified 11/07/17 18:55) Pain in joints verapamil [From Covera-HS] Allergy (Verified 11/07/17 18:55) passes out lisinopril Adverse Reaction (Verified 11/07/17 18:55) Other muscle pain Niacin Preparations Adverse Reaction (Verified 11/07/17 18:55) Pain in joints Cholesterol Meds Adverse Reaction (Uncoded 11/07/17 18:55) Other Home Medications: Ambulatory Orders Medication Instructions Recorded Mirtazapine [Remeron] 15 mg PO QHS 12/02/13 Doxazosin Mesylate [Cardura] 2 mg PO QHS 01/30/15 Insulin Glargine,Hum.rec.anlog 14 unit SQ BREAKFAST 08/20/15 [Lantus] Clopidogrel Bisulfate [Plavix] 75 mg PO DAILY #0 12/04/15 Isosorbide Mononitrate [Imdur] 60 mg PO DAILY #30 tab 09/01/17 Carvedilol [Coreg (Beta Pedro)] 25 mg PO BID #90 tab 09/08/17 Allopurinol 200 mg PO DAILY 11/07/17 Aspirin E.C. [Ecotrin] 81 mg PO DAILY 11/07/17 Slow Release Iron 45 mg PO DAILY 11/07/17 Sucralfate [Carafate] 1 tab PO 4X/DAY 11/07/17 Venlafaxine HCl [Venlafaxine HCl 150 mg PO DAILY 11/07/17 ER] hydrALAZINE [Apresoline] 50 mg PO BID 11/07/17 Surgical History: Surgical History (Last Reviewed 09/22/17 @ 08:20 by Bessy Lr) History of coronary artery bypass graft x 3 (Chronic) Onset Date: 09/27/06 Z95.1 CHARLES to LAD, SVG to RCA and SVG to CX per Dr. Buitrago @ [facility] History of left heart catheterization (Chronic) Onset Date: 09/06/17 Z98.890 History of colostomy (Chronic) Z98.890 Surgical History: - - History of ruptured bowel status post colostomy, PCI, CABG, appendectomy, hernia repair. Psychiatric History: Anxiety, Depression Lives: Spouse/ Significant Other Smoking Status: Former smoker Tobacco Use: Non-smoker Alcohol: None Drugs: None - *Family History Sibling Family History: Family History (Last Reviewed 09/22/17 @ 08:20 by Bessy Lr) Unknown No problems noted. History Items: Diabetes, Heart Disease Maternal Family History: Family History (Last Reviewed 09/22/17 @ 08:20 by Bessy Lr) Unknown No problems noted. History Items: Heart Disease Paternal Family History: Family History (Last Reviewed 09/22/17 @ 08:20 by Bessy Lr) Unknown No problems noted. History Items: Heart Disease Review of Systems Constitutional: Reports: Malaise, Weakness, Fatigue. Denies: Chills, Fever, Weight Change HEENT: Denies: Head Aches, Sinus Congestion, Sinus Drainage Cardiovascular: Reports: Chest Pain, Chest Pressure, Chest Tightness. Denies: Light Headedness, Orthopnea, Palpitations Respiratory: Reports: Shortness of Breath, Shortness of breath upon exertion. Denies: Cough, Shortness of breath at rest, Sputum production Gastrointestinal: Reports: Nausea. Denies: Abdominal Pain, Vomiting Genitourinary: Denies: Dysuria Musculoskeletal: Denies: Joint Pain, Joint Tenderness Skin: Denies: Rash, Wounds Neurological: Denies: Numbness, Tingling, Focal weakness Psychiatric: Reports: Anxiety, Depression. Denies: Homicidal Ideations, Suicidal Ideations Hematologic/ Lymphatic: Reports: Anemia, Easy Bruising, Easy Bleeding VTE Information - Inpt Only VTE Present on Admission: No VTE Mechan Device Prophylaxis: SCD's VTE Pharm Prophylaxis ordered?: Yes Patient Problems: Active and Suspected Problems (Last Updated 10/13/17 @ 15:46 by Nat Persaud) Chest pain (Acute) NSTEMI (non-ST elevated myocardial infarction) (Acute) Subjective: Seated upright in the ED bed, anxious appearing, notes currently no chest pain. Objective: Physical Examination: General: awake, alert, oriented x 3 and cooperative, seated upright in the ED bed in no apparent distress, anxious appearing. Skin: normal color, turgor, no icterus, cyanosis except very staged ecchymoses to the extremities. HEENT: AT/NC, EOMI, PERRLA, MMM, no carotid bruits or JVD noted. Lungs: CTA bilaterally, moderate effort, mild decrease BL bases, no rales, ronchi or wheezing. Heart: Regular rate and rhythm; no gallop, rub audible. Abdomen: soft, ostomy LLQ, NTTP, ND, mildly hyperactive BS, no HSM. Extremities: no cyanosis, clubbing, or edema. Neurological: patient awake, alert, oriented x 3; cognitive function intact; pupils equally reactive to light and accomodation; cranial nerves II-XII grossly normal, moving all 4 extremities, no focal deficits, strength moderately globally decreased secondary to acute presentation. Psychiatric: affect appears fatigued, mildly anxious, no acute evidence of depressive feelings. - Physical Exam Vital Signs Temp Pulse Resp BP Pulse Ox 97.6 F L 94 18 179/99 H 98 11/07/17 18:52 11/07/17 21:16 11/07/17 21:16 11/07/17 21:16 11/07/17 21:16 Oxygen Flow Rate (L/min) 2 Oxygen Delivery Method Nasal Cannula Weight: 170 lb Body Mass Index (BMI) 26.6 Laboratory Tests Past 24 Hrs 11/07/17 11/07/17 19:05 19:05 WBC 9.6 RBC 3.23 L Hgb 10.1 L Hct 30.4 L MCV 94.1 H MCH 31.3 MCHC 33.2 RDW 14.6 RDW Differential 47.9 H Plt Count 167 MPV 11.3 Immature Gran % (Auto) 0.200 Neut % (Auto) 56.9 Lymph % (Auto) 10.9 L [place] % (Auto) 8.4 Eos % (Auto) 22.6 H Baso % (Auto) 1.0 Absolute Neuts (auto) 5.5 Absolute Lymphs (auto) 1.05 Total Counted Not Reportable Differential Comment SCANNED Diff Path Review June Sodium 136 Potassium 3.9 Chloride 105 Carbon Dioxide 20.0 L Anion Gap 11 BUN 43 H Creatinine 2.99 H Estim Creat Clear Calc 20.57 Est GFR (MDRD) Af Amer 27 L Est GFR (MDRD) Non-Af 22 L BUN/Creatinine Ratio 14.4 Glucose 236 H Calcium 8.8 Troponin I 0.469 H Assessment/Plan All Active Problems (Last Updated 10/13/17 @ 15:46 by Nat Persaud) Chest pain (Acute) NSTEMI (non-ST elevated myocardial infarction) (Acute) Chest pain (Resolved) The patient is a 72 y/o M w/ PMHx: CKD stage IV, Diabetes mellitus type II, HTN, HLD, Gout, CAD s/p PCI (3 total) as well as CABG x 3, Hx Provoked PE, s/p Colostomy Status, AOCD,, Ischemic Cardiomyopathy s/p recent AICD placement on 10/05/17 who presents to the [facility] ED on 11/07/17 with history of several months of ongoing intermittent exertional chest pain in addition to chest discomfort awakening him from sleep with associated diaphoresis, dyspnea primarily in the midsternal region and in addition to between the shoulder blades, worse with activity with additionally associated nausea without emesis with worsened severity upon day of ED presentation. (1) Chest Pain w/ Acute NSTEMI: ED included T 97.6, heart rate initially 109--> 97, BP 171/106, respiratory rate 21, 98% on room air, CBC with WBC 9.6, hemoglobin 10.1, platelet 167 without market left shift, BMP with carbon dioxide 20, BUN/Cr 43/2.99, glucose 236, troponin 0.469, EKG with new EKG changes in leads II, 3, aVF with ST depression and T wave inversions changed from prior, chest x-ray with no acute findings. Will admit to CCU per Cardiology preference, maintain on a monitored bed, continue serial cardiac enzymes and EKGs. Obtain magnesium level upon admission. Continue heparin drip. Continue medical management w/ asa, plavix, BB, statin w/ AM FLP. Cardiology consulted, possible repeat cardiac catheterization. Maintain NPO after midnight. ASA, NG, morphine. 09/08/17 admission w/ cardiac catheterization w/ noted occluded SVG graft to OM, patent SVG graft to RCA, patent CHARLES to LAD, patent LCx stents and possibly significant proximal LAD disease, no interventions performed. (2) CAD: s/p CABG and PCI. 09/08/17 admission w/ cardiac catheterization w/ noted occluded SVG graft to OM, patent SVG graft to RCA, patent CHARLES to LAD, patent LCx stents and possibly significant proximal LAD disease, no interventions performed. Will continue home regimen asa, plavix, statin, BB. (3) Ischemic Cardiomyopathy: 10/05/17 AICD placement, continue home asa, plavix, statin, BB, lasix. (4) Chronic Kidney Disease Stage IV: Admission BUN/Cr 43/2.99, baseline renal function 2.7-3, repeat BMP in AM. Following w/ Dr. Royal with ongoing encouragement for placement AVF for future HD needs. Recent AICD with planned AICD formation now following. (5) AOCD/Fe deficiency: Admission Hgb 10.1, baseline 9-11 range, maintain on Fe supplementation, repeat CBC in AM. (6) Diabetes mellitus type II: Hold oral home regimen, continue home insulin regimen, ADA diet, accu checks w/ ISS. (7) Hypertension: Continue home regimen including isosorbide, Coreg, Cardizem, Lasix, hydralazine, PRN hydralazine. (8) Hyperlipidemia: Continue home statin regimen. AM FLP. (9) Anxiety and depression: Continue home regimen Remeron, Effexor, PRN ativan. (10) GERD: PPI. (11) DVT Prophylaxis: SCDs, heparin drip. Code Visit Inpatient E&M: 61919 Init Hosp L3
--- NOTE | 2017-11-07 21:49 | HP.PCM_ITS ---
Problem List (1) NSTEMI (non-ST elevated myocardial infarction) Status: Acute (2) Chest pain Status: Acute Qualifiers: Chest pain type: unspecified Qualified Code(s): R07.9 - Chest pain, unspecified (3) Implantable cardioverter-defibrillator (ICD) in situ Status: Chronic (4) Ischemic cardiomyopathy Status: Chronic (5) History of coronary artery bypass graft x 3 Status: Chronic Comment: CHARLES to LAD, SVG to RCA and SVG to CX per Dr. Buitrago @ [facility] (6) Atherosclerotic heart disease of [place] coronary artery with other forms of angina pectoris Status: Chronic (7) DM2 (diabetes mellitus, type 2) Status: Chronic Qualifiers: Diabetes mellitus fdc insulin use: with fdc use Diabetes mellitus complication status: with unspecified complications Qualified Code(s): E11.8 - Type 2 diabetes mellitus with unspecified complications; Z79.4 - USP (current) use of insulin (8) CKD (chronic kidney disease), stage IV Status: Chronic (9) History of pulmonary embolism Status: Chronic Comment: Provoked (10) History of hypertension Status: Chronic (11) History of hyperlipidemia Status: Chronic (12) History of gout Status: Chronic (13) Agent orange exposure Status: Chronic (14) History of colostomy Status: Chronic History of Present Illness Date of Admission: 11/07/17 Chief Complaint: Chest pain The patient is a 72 y/o M w/ PMHx: CKD stage IV, Diabetes mellitus type II, HTN, HLD, Gout, CAD s/p PCI 2012/2013 (3 total) as well as CABG x 3, Hx Provoked PE, s/p Colostomy Status, AOCD,, Ischemic Cardiomyopathy s/p recent AICD placement on 10/05/17 who presents to the [facility] ED on 11/07/17 with history of several months of ongoing intermittent exertional chest pain in addition to chest discomfort awakening him from sleep with associated diaphoresis, dyspnea primarily in the midsternal region and in addition to between the shoulder blades, worse with activity with additionally associated nausea without emesis with worsened severity upon day of ED presentation. He noted chest pain at worst 10/10, currently following ED interventions 0/10. Work-up in the ED included T 97.6, heart rate initially 109--> 97, BP 171/106, respiratory rate 21, 98% on room air, CBC with WBC 9.6, hemoglobin 10.1, platelet 167 without market left shift, BMP with carbon dioxide 20, BUN/Cr 43/2.99, glucose 236, troponin 0.469, EKG with new EKG changes in leads II, 3, aVF with ST depression and T wave inversions changed from prior, chest x-ray with no acute findings. In the ED patient administered aspirin, NG and initiated on heparin drip per Cardiology request. Cardiology consulted per ED and reviewed case w/ planned ICU admission and evaluation in AM for possible catheterization. Past Medical History Past Medical History (Chronic Problems): Chronic Problems (Last Reviewed 09/22/17 @ 08:20 by Bessy Lr) Implantable cardioverter-defibrillator (ICD) in situ (Chronic) Ischemic cardiomyopathy (Chronic) 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 Buitrago @ [facility] History of left heart catheterization (Chronic 09/06/17) Atherosclerotic heart disease of [place] coronary artery with other forms of angina pectoris (Chronic) DM2 (diabetes mellitus, type 2) (Chronic) CKD (chronic kidney disease), stage IV (Chronic) History of pulmonary embolism (Chronic) Provoked History of hypertension (Chronic) History of hyperlipidemia (Chronic) History of gout (Chronic) 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) Medical History: Medical History (Last Updated 10/13/17 @ 15:46 by Nat Persaud) Implantable cardioverter-defibrillator (ICD) in situ (Chronic) Z95.810 Ischemic cardiomyopathy (Chronic) I25.5 Atherosclerotic heart disease of [place] coronary artery with other forms of angina pectoris (Chronic) I25.118 DM2 (diabetes mellitus, type 2) (Chronic) E11.9 CKD (chronic kidney disease), stage IV (Chronic) N18.4 History of pulmonary embolism (Chronic) Z86.711 Provoked History of hypertension (Chronic) Z86.79 History of hyperlipidemia (Chronic) Z86.39 History of gout (Chronic) Z87.39 Agent orange exposure (Chronic) Z77.098 Allergies atorvastatin calcium [From Lipitor] Allergy (Verified 11/07/17 18:55) Pain in joints verapamil [From Covera-HS] Allergy (Verified 11/07/17 18:55) passes out lisinopril Adverse Reaction (Verified 11/07/17 18:55) Other muscle pain Niacin Preparations Adverse Reaction (Verified 11/07/17 18:55) Pain in joints Cholesterol Meds Adverse Reaction (Uncoded 11/07/17 18:55) Other Home Medications: Ambulatory Orders Medication Instructions Recorded Mirtazapine [Remeron] 15 mg PO QHS 12/02/13 Doxazosin Mesylate [Cardura] 2 mg PO QHS 01/30/15 Insulin Glargine,Hum.rec.anlog 14 unit SQ BREAKFAST 08/20/15 [Lantus] Clopidogrel Bisulfate [Plavix] 75 mg PO DAILY #0 12/04/15 Isosorbide Mononitrate [Imdur] 60 mg PO DAILY #30 tab 09/01/17 Carvedilol [Coreg (Beta Pedro)] 25 mg PO BID #90 tab 09/08/17 Allopurinol 200 mg PO DAILY 11/07/17 Aspirin E.C. [Ecotrin] 81 mg PO DAILY 11/07/17 Slow Release Iron 45 mg PO DAILY 11/07/17 Sucralfate [Carafate] 1 tab PO 4X/DAY 11/07/17 Venlafaxine HCl [Venlafaxine HCl 150 mg PO DAILY 11/07/17 ER] hydrALAZINE [Apresoline] 50 mg PO BID 11/07/17 Surgical History: Surgical History (Last Reviewed 09/22/17 @ 08:20 by Bessy Lr) History of coronary artery bypass graft x 3 (Chronic) Onset Date: 09/27/06 Z95.1 CHARLES to LAD, SVG to RCA and SVG to CX per Dr. Buitrago @ [facility] History of left heart catheterization (Chronic) Onset Date: 09/06/17 Z98.890 History of colostomy (Chronic) Z98.890 Surgical History: - - History of ruptured bowel status post colostomy, PCI, CABG, appendectomy, hernia repair. Psychiatric History: Anxiety, Depression Lives: Spouse/ Significant Other Smoking Status: Former smoker Tobacco Use: Non-smoker Alcohol: None Drugs: None - *Family History Sibling Family History: Family History (Last Reviewed 09/22/17 @ 08:20 by Bessy Lr) Unknown No problems noted. History Items: Diabetes, Heart Disease Maternal Family History: Family History (Last Reviewed 09/22/17 @ 08:20 by Bessy Lr) Unknown No problems noted. History Items: Heart Disease Paternal Family History: Family History (Last Reviewed 09/22/17 @ 08:20 by Bessy Lr) Unknown No problems noted. History Items: Heart Disease Review of Systems Constitutional: Reports: Malaise, Weakness, Fatigue. Denies: Chills, Fever, Weight Change HEENT: Denies: Head Aches, Sinus Congestion, Sinus Drainage Cardiovascular: Reports: Chest Pain, Chest Pressure, Chest Tightness. Denies: Light Headedness, Orthopnea, Palpitations Respiratory: Reports: Shortness of Breath, Shortness of breath upon exertion. Denies: Cough, Shortness of breath at rest, Sputum production Gastrointestinal: Reports: Nausea. Denies: Abdominal Pain, Vomiting Genitourinary: Denies: Dysuria Musculoskeletal: Denies: Joint Pain, Joint Tenderness Skin: Denies: Rash, Wounds Neurological: Denies: Numbness, Tingling, Focal weakness Psychiatric: Reports: Anxiety, Depression. Denies: Homicidal Ideations, Suicidal Ideations Hematologic/ Lymphatic: Reports: Anemia, Easy Bruising, Easy Bleeding VTE Information - Inpt Only VTE Present on Admission: No VTE Mechan Device Prophylaxis: SCD's VTE Pharm Prophylaxis ordered?: Yes Patient Problems: Active and Suspected Problems (Last Updated 10/13/17 @ 15:46 by Nat Persaud) Chest pain (Acute) NSTEMI (non-ST elevated myocardial infarction) (Acute) Subjective: Seated upright in the ED bed, anxious appearing, notes currently no chest pain. Objective: Physical Examination: General: awake, alert, oriented x 3 and cooperative, seated upright in the ED bed in no apparent distress, anxious appearing. Skin: normal color, turgor, no icterus, cyanosis except very staged ecchymoses to the extremities. HEENT: AT/NC, EOMI, PERRLA, MMM, no carotid bruits or JVD noted. Lungs: CTA bilaterally, moderate effort, mild decrease BL bases, no rales, ronchi or wheezing. Heart: Regular rate and rhythm; no gallop, rub audible. Abdomen: soft, ostomy LLQ, NTTP, ND, mildly hyperactive BS, no HSM. Extremities: no cyanosis, clubbing, or edema. Neurological: patient awake, alert, oriented x 3; cognitive function intact; pupils equally reactive to light and accomodation; cranial nerves II-XII grossly normal, moving all 4 extremities, no focal deficits, strength moderately globally decreased secondary to acute presentation. Psychiatric: affect appears fatigued, mildly anxious, no acute evidence of depressive feelings. - Physical Exam Vital Signs Temp Pulse Resp BP Pulse Ox 97.6 F L 94 18 179/99 H 98 11/07/17 18:52 11/07/17 21:16 11/07/17 21:16 11/07/17 21:16 11/07/17 21:16 Oxygen Flow Rate (L/min) 2 Oxygen Delivery Method Nasal Cannula Weight: 170 lb Body Mass Index (BMI) 26.6 Laboratory Tests Past 24 Hrs 11/07/17 11/07/17 19:05 19:05 WBC 9.6 RBC 3.23 L Hgb 10.1 L Hct 30.4 L MCV 94.1 H MCH 31.3 MCHC 33.2 RDW 14.6 RDW Differential 47.9 H Plt Count 167 MPV 11.3 Immature Gran % (Auto) 0.200 Neut % (Auto) 56.9 Lymph % (Auto) 10.9 L Callahan % (Auto) 8.4 Eos % (Auto) 22.6 H Baso % (Auto) 1.0 Absolute Neuts (auto) 5.5 Absolute Lymphs (auto) 1.05 Total Counted Not Reportable Differential Comment SCANNED Diff Path Review June Sodium 136 Potassium 3.9 Chloride 105 Carbon Dioxide 20.0 L Anion Gap 11 BUN 43 H Creatinine 2.99 H Estim Creat Clear Calc 20.57 Est GFR (MDRD) Af Amer 27 L Est GFR (MDRD) Non-Af 22 L BUN/Creatinine Ratio 14.4 Glucose 236 H Calcium 8.8 Troponin I 0.469 H Assessment/Plan All Active Problems (Last Updated 10/13/17 @ 15:46 by Nat Persaud) Chest pain (Acute) NSTEMI (non-ST elevated myocardial infarction) (Acute) Chest pain (Resolved) The patient is a 72 y/o M w/ PMHx: CKD stage IV, Diabetes mellitus type II, HTN, HLD, Gout, CAD s/p PCI (3 total) as well as CABG x 3, Hx Provoked PE, s/p Colostomy Status, AOCD,, Ischemic Cardiomyopathy s/p recent AICD placement on 10/05/17 who presents to the [facility] ED on 11/07/17 with history of several months of ongoing intermittent exertional chest pain in addition to chest discomfort awakening him from sleep with associated diaphoresis, dyspnea primarily in the midsternal region and in addition to between the shoulder blades, worse with activity with additionally associated nausea without emesis with worsened severity upon day of ED presentation. (1) Chest Pain w/ Acute NSTEMI: ED included T 97.6, heart rate initially 109--> 97, BP 171/106, respiratory rate 21, 98% on room air, CBC with WBC 9.6, hem oglobin 10.1, platelet 167 without market left shift, BMP with carbon dioxide 20, BUN/Cr 43/2.99, glucose 236, troponin 0.469, EKG with new EKG changes in leads II, 3, aVF with ST depression and T wave inversions changed from prior, chest x-ray with no acute findings. Will admit to CCU per Cardiology preference, maintain on a monitored bed, continue serial cardiac enzymes and EKGs. Obtain magnesium level upon admission. Continue heparin drip. Continue medical management w/ asa, plavix, BB, statin w/ AM FLP. Cardiology consulted, possible repeat cardiac catheterization. Maintain NPO after midnight. ASA, NG, morphine. 09/08/17 admission w/ cardiac catheterization w/ noted occluded SVG graft to OM, patent SVG graft to RCA, patent CHARLES to LAD, patent LCx stents and possibly significant proximal LAD disease, no interventions performed. (2) CAD: s/p CABG and PCI. 09/08/17 admission w/ cardiac catheterization w/ noted occluded SVG graft to OM, patent SVG graft to RCA, patent CHARLES to LAD, patent LCx stents and possibly significant proximal LAD disease, no interventions performed. Will continue home regimen asa, plavix, statin, BB. (3) Ischemic Cardiomyopathy: 10/05/17 AICD placement, continue home asa, plavix, statin, BB, lasix. (4) Chronic Kidney Disease Stage IV: Admission BUN/Cr 43/2.99, baseline renal function 2.7-3, repeat BMP in AM. Following w/ Dr. Royal with ongoing encouragement for placement AVF for future HD needs. Recent AICD with planned AICD formation now following. (5) AOCD/Fe deficiency: Admission Hgb 10.1, baseline 9-11 range, maintain on Fe supplementation, repeat CBC in AM. (6) Diabetes mellitus type II: Hold oral home regimen, continue home insulin regimen, ADA diet, accu checks w/ ISS. (7) Hypertension: Continue home regimen including isosorbide, Coreg, Cardizem, Lasix, hydralazine, PRN hydralazine. (8) Hyperlipidemia: Continue home statin regimen. AM FLP. (9) Anxiety and depression: Continue home regimen Remeron, Effexor, PRN ativan. (10) GERD: PPI. (11) DVT Prophylaxis: SCDs, heparin drip. Code Visit Inpatient E&M: 80850 Init Hosp L3
--- NOTE | 2017-11-07 21:53 | ED.DCSUM_ITS ---
- ER Visit Summary Date of Service: 11/07/17 Chief Complaint: Chest pain History of Present Illness: The patient is a 72 M with history of ischemic cardiomyopathy, [place], type 2 diabetes, hypertension, hypercholesterolemia, end- stage renal disease and PE presents with 1+ month of intermittent exertional chest pain. He has had a couple episodes that is awakened him from sleep. 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 Barnard. This evening he developed severe pain radiating to his back with diaphoresis shortness of breath. He is presently on aspirin and Plavix. He states he is compliant with his medication. He denies fever, chills night sweats. Denies weight gain or weight loss. Denies visual, ocular auditory symptoms. He denies orthopnea or PND. He denies any GI symptoms. Physical Examination: Patient appears in obvious discomfort holding his chest and diaphoresis. Blood pressure is elevated. Head is atraumatic normocephalic. Pupils are equal round reactive. Extraocular muscles are intact. TMs are pearly white with landmarks noted. Nares patent with no drainage. Posterior pharynx without erythema or exudate. Uvula is midline. There is no dysphonia or dysphasia. Trachea is midline. There is no stridor with auscultation of the neck. Heart is regular without murmur, gallop or rub. S1 and S2 are normal. Lungs are clear to auscultation with good movement of air bilaterally. Abdomen is soft nontender. There is no asymmetry, swelling, discoloration, leg vein distention, palpable cords or tenderness along the distribution of the deep venous system. Neuro exam is nonfocal. Test Results: EKG obtained in triage reveals inferior ischemic changes are new from September 07, 2017. Chest x-ray reveals no acute process. CBC reveals mild anemia with an H&H 10.1 and 30.4. Basic metabolic panel reveals elevated creatinine 2.99 and glucose 236. Troponin is elevated 0.47. Emergency Department Course and Treatment: In light of EKG changes patient received aspirin nitro. The nitro alleviated his pain. He also received clonidine to decrease his blood pressure. Dr. Khan recommended approximately 25 mg 3 times daily. Because of the elevated creatinine he was administered heparin per weight-based protocol with bolus. Treatment Plan: Admit CCU acute coronary syndrome/non-ST elevation [place] Disposition: Admit CCU Impression: Acute coronary syndrome/non-ST elevation [place] End-stage renal disease Hyperglycemia type II diabetic History of ischemic cardiomyopathy Hypertension hypertensive patient This note was generated with Longaccess dictation software. It may contain incorrect words, spelling, and punctuation that were not noted in review of the chart prior to signing ED Disposition - Plan for ED Patient: Chief Complaint: Chest Pain Referrals: Prasad Concepcion III, MD [Primary Care Provider] -
[2017-11-07] MEDS: HEPARIN/D5w 25,000 UNITS 25,000 UNITS/250 ML IV.SOLN. 11 UNITS IV (22:17)
[2017-11-07] MEDS: Heparin Injection (Vial) 5,000 UNIT/ML VIAL 5000 UNIT IV (22:17)
[2017-11-07] MEDS: cloNIDine HCl 0.1 MG Tablet PO (22:17)
[2017-11-07 22:50] LABS: Partial Thromboplast Time 30.1 Seconds (24.1-36.2)
--- NOTE | 2017-11-07 23:10 | ECHOD_ITS ---
Reason For Study: Chest Pain Procedure This was a 2D Doppler, Color Flow transthoracic echocardiogram. Exam performed portable in patient room. Left Ventricle Mildly dilated left ventricle. The estimated ejection fraction is 25 %. There is severe global hypokinesis of the left ventricle. Right Ventricle Mildly dilated right ventricle. ICD or pacer leads identified within the right ventricle. Mild global right ventricular systolic dysfunction. Atria Normal left atrium. Normal right atrium. Normal atrial septum. Mitral Valve The mitral valve is structurally normal. No prolapse or stenosis seen. Moderate (2+) mitral valve insufficiency. Tricuspid Valve Normal tricuspid valve. Mild to moderate (1-2+) tricuspid valve insufficiency. Right ventricular systolic pressure estimated to be 61 mmHg. Severe pulmonary hypertension. Aortic Valve Trisinus/trileaflet aortic valve. Mild diffuse aortic valve thickening. Mild (1+) aortic valve insufficiency. Pulmonic Valve Normal pulmonic valve. Great Vessels Normal aortic root. Normal arch. Pericardium/Pleural No pericardial effusion. MMode/2D Measurements & Calculations LVIDd: 5.2 cm IVSd: 1.2 cm Ao root diam: 3.3 cm LVIDs: 4.6 cm LVPWd: 1.1 cm LA dimension: 4.7 cm RVDd: 3.9 cm FS: 10.6 % LAV(MOD-bp): 54.1 ml LVAd ap4: 36.7 cm2 SV(MOD-sp4): 41.4 ml LAV(MOD-bp) Indexed: 31.4 ml/m2 EDV(MOD-sp4): 126.9 ml LAV(MOD-sp2): 70.5 ml EDV(sp4-el): 131.2 ml LAV(MOD-sp4): 44.8 ml LVAs ap4: 27.7 cm2 ESV(MOD-sp4): 85.5 ml ESV(sp4-el): 85.5 ml EF(MOD-sp4): 32.6 % EF(sp4-el): 34.8 % SV(sp4-el): 45.7 ml LA A4 area: 17.0 cm2 RA A4 area: 13.0 cm2 Doppler Measurements & Calculations MV E max kanu: 103.9 cm/sec Lat Peak E' Kanu: 8.3 cm/sec Med Peak E' Kanu: 3.7 cm/sec MV A max kanu: 96.2 cm/sec E/E' lat: 12.6 E/E' med: 28.2 MV E/A: 1.1 Ao V2 max: 134.4 cm/sec AI max kanu: 454.9 cm/sec LV V1 max: 84.5 cm/sec Ao max P.2 mmHg AI max P.8 mmHg LV V1 max P.9 mmHg Ao V2 mean: 92.0 cm/sec AI dec slope: 393.4 cm/sec2 Ao mean P.7 mmHg AI P1/2t: 338.7 msec Ao V2 VTI: 24.0 cm PA V2 max: 93.0 cm/sec PI end-d kanu: 209.5 cm/sec TR max kanu: 373.0 cm/sec TR max P.7 mmHg Interpretation Summary Mildly dilated left ventricle. The estimated ejection fraction is 25 %. There is severe global hypokinesis of the left ventricle. Moderate (2+) mitral valve insufficiency. Mild to moderate (1-2+) tricuspid valve insufficiency. Right ventricular systolic pressure estimated to be 61 mmHg. Severe pulmonary hypertension. Mild (1+) aortic valve insufficiency. Mildly dilated right ventricle. Compared to echo report dated 08/31/2017, LV function has gone from 45% to 25%, and RVSP has worsened from 25 to 65 mm Hg. Ordering Physician: Carmen Hogan Referring Physician: Prasad Concepcion Performed By: Yael Atkinson, ALETHEA, RVT
[2017-11-07] MEDS: hydrALAZINE 50 MG Tablet PO (23:25)
[2017-11-07] MEDS: LORazepam 0.5 MG Tablet PO (23:26)
[2017-11-07] MEDS: Morphine 2 MG/ML Syringe IV (23:27)
[2017-11-07 23:37] LABS: Magnesium 2.2 mg/dL (1.6-2.6)
[2017-11-08] VITALS (17 sets, daily range): BP systolic 153–189; BP diastolic 78–97; PULSE 79–93; RESP 12–25; TEMP 36.6–37.1; O2SAT 94–100
[2017-11-08] MEDS: 0.9% Normal Saline 1,000 ML 75 ML IV (00:25)
[2017-11-08] MEDS: 0.9% NaCl Peripheral Flush Adult/Peds IV (01:31)
[2017-11-08 02:19] LABS: M R Staph aureus DNA By PCR Negative (Negative); Probe Check PASS; Specimen Processing Control PASS
[2017-11-08 04:27] LABS: Mean Corp Hgb Conc 33.3 g/gl (32-36); Mean Corpuscular Hgb 30.8 pg (27.0-32.0); Mean Corpuscular Volume 92.5 fL (80-94); Platelet Count 141 K/mm3 (150-450); RBC Distribution Width SD 50.6 fl (35.1-43.9); Red Blood Count 2.92 M/mm3 (4.6-6.2); White Blood Count 7.9 K/mm3 (4.4-11.0)
[2017-11-08 04:34] LABS: Scan Indicated on CBC? Y/N NO
[2017-11-08 04:35] LABS: Anion Gap 10 (5-15); BUN 41 mg/dL (7-18); BUN/Creat Ratio 15.1 RATIO (10-20); Calcium,Total 8.5 mg/dL (8.5-10.1); Chloride 111 mmol/L (98-107); Cholesterol 219 mg/dL (200); Creatinine, Serum 2.72 mg/dL (0.70-1.30); EST Glomerular Filtration Rate 25 mL/min (>60); Est Glom Filt Rate - Afr Amer 30 mL/min (>60); Estimated Creatinine Clearance 21.45 ml/min; Glucose 93 mg/dL (74-106); High Density Lipoprotein 47 mg/dL; Potassium 3.7 mmol/L (3.5-5.1); Sodium Level 142 mmol/L (136-145); Triglycerides 78 mg/dL; Very Low Density Lipoprotein 16 mg/dL (5-40)
[2017-11-08 05:38] LABS: Partial Thromboplast Time 246.8 Seconds (24.1-36.2)
--- NOTE | 2017-11-08 05:55 | EKG12_ITS ---
Test Reason : AM EKG Blood Pressure : / mmHG Vent. Rate : 087 BPM Atrial Rate : 087 BPM P-R Int : 190 ms QRS Dur : 102 ms QT Int : 398 ms P-R-T Axes : 054 063 270 degrees QTc Int : 478 ms Normal sinus rhythm ST & T wave abnormality, consider inferolateral ischemia Prolonged QT Abnormal ECG When compared with ECG of 07-NOV-2017 18:53, MANUAL COMPARISON REQUIRED, DATA IS UNCONFIRMED Confirmed by ABDIAZIZ CABRERA, MADAN ([id number]), video editor TEA BATISTA ([id number]) on 11/10/2017 2:59:41 PM Referred By: BARBARA Confirmed By:MADAN FREED MD
[2017-11-08] MEDS: Sucralfate 1 GM Tablet PO ×2 (06:40→09:29)
[2017-11-08] MEDS: hydrALAZINE 50 MG Tablet PO (06:40)
[2017-11-08 06:56] LABS: Bedside Glucose 88 mg/dL (70-110)
[2017-11-08] MEDS: HYDROcodone Bitartrate/Apap 5/325 Tablet PO (07:01)
--- NOTE | 2017-11-08 08:23 | PN_ITS ---
Patient Problems: Active and Suspected Problems (Last Updated 10/13/17 @ 15:46 by Nat Persaud) Chest pain (Acute) NSTEMI (non-ST elevated myocardial infarction) (Acute) Subjective: Patient is a 72-year-old gentleman with known CAD who presented with chest pain with elevated troponin an assessment of acute non-ST [place] made. Patient admitted to the intensive care unit with consultation placed to cardiology 11/08/2017: Patient seen still complains of chest discomfort Vitals/I&O's: Vital Signs Temp Pulse Resp BP Pulse Ox 98.1 F 85 20 H 184/96 H 97 11/08/17 05:00 11/08/17 07:31 11/08/17 07:31 11/08/17 07:31 11/08/17 07:31 Oxygen Flow Rate (L/min) 1 Oxygen Delivery Method Nasal Cannula Weight: 63 kg Body Mass Index (BMI) 21.6 Intake and Output for Last 24 Hours 11/06/17 11/07/17 11/08/17 23:59 23:59 23:59 Intake Total 429 / 429 Output Total 250 / 250 Balance 179 / 179 General: Alert, Oriented x3, Cooperative HEENT: Atraumatic Neck: Supple, No JVD, Thyroid Normal Size and Texture Lungs: No wheeze, Diminished Cardiovascular: Regular rate, Normal S1, Normal S2 Abdomen: Bowel Sounds Present, Soft, Non Tender Extremities: No clubbing, No cyanosis, No edema Skin: No rashes Musculoskeletal: No Muscle Wasting, - - Full range of motion in all major muscle groups. Neurological: Neuro grossly intact Psych/Mental Status: Normal Affect Laboratory Results 11/07/17 19:05: WBC 9.6, RBC 3.23 L, Hgb 10.1 L, Hct 30.4 L, MCV 94.1 H, MCH 31.3, MCHC 33.2, RDW 14.6, RDW Differential 47.9 H, Plt Count 167, MPV 11.3, Immature Gran % (Auto) 0.200, Neut % (Auto) 56.9, Lymph % (Auto) 10.9 L, [place] % (Auto) 8.4, Eos % (Auto) 22.6 H, Baso % (Auto) 1.0, Absolute Neuts (auto) 5.5, Absolute Lymphs (auto) 1.05, Total Counted Not Reportable, Differential Comment SCANNED, Diff Path Review May foll 11/07/17 19:05: Sodium 136, Potassium 3.9, Chloride 105, Carbon Dioxide 20.0 L, Anion Gap 11, BUN 43 H, Creatinine 2.99 H, Estim Creat Clear Calc 20.57, Est GFR (MDRD) Af Amer 27 L, Est GFR (MDRD) Non-Af 22 L, BUN/Creatinine Ratio 14.4, Glucose 236 H, Calcium 8.8, Troponin I 0.469 H 11/07/17 19:05: APTT 30.1 11/07/17 19:05: Magnesium 2.2 11/07/17 23:20: MRSA (PCR) Negative 11/07/17 23:50: Troponin I 0.485 H 11/08/17 04:05: WBC 7.9, RBC 2.92 L, Hgb 9.0 L, Hct 27.0 L, MCV 92.5, MCH 30.8, MCHC 33.3, RDW 15.0 H, RDW Differential 50.6 H, Plt Count 141 L, MPV 11.0 11/08/17 04:05: Sodium 142, Potassium 3.7, Chloride 111 H, Carbon Dioxide 21.0, Anion Gap 10, BUN 41 H, Creatinine 2.72 H, Estim Creat Clear Calc 21.45, Est GFR (MDRD) Af Amer 30 L, Est GFR (MDRD) Non-Af 25 L, BUN/Creatinine Ratio 15.1, G lucose 93, Calcium 8.5, Triglycerides 78, Cholesterol 219 H, LDL Cholesterol 156 H, VLDL Cholesterol 16, HDL Cholesterol 47 11/08/17 04:05: Troponin I 0.473 H 11/08/17 04:05: APTT Cancelled 11/08/17 05:00: APTT 246.8 H* 11/08/17 06:47: POC Glucose 88 Current Medications Acetaminophen (Tylenol) 650 mg PO Q6H PRN PRN PRN Reason: Non-cardiac pain (mod-severe) Hydrocodone Bitart/Acetaminophen (Hillister 5mg-325mg) 1 - 2 tablet PO Q6H PRN PRN PRN Reason: Moderate-severe pain Last Admin: 11/08/17 07:01 Dose: 1 tablet Al Hydroxide/Mg Hydroxide (Mylanta Ii) 30 ml PO Q6H PRN PRN PRN Reason: Gastric burning [facility] Aspirin ([facility]cotrin) [facility] Carvedilol (Coreg) 25 mg PO BID PENDING SALE TO [facility] Clopidogrel Bisulfate (Plavix) 75 mg PO DAILY PENDING SALE TO [facility] Doxazosin Mesylate (Cardura) 2 mg PO QHS PENDING SALE TO [facility] Heparin Sodium (Porcine) (Heparin Na) 0 unit IV UD PRN; Protocol Hydralazine HCl (Apresoline) 50 mg PO TID PENDING SALE TO [facility] Last Admin: 11/08/17 06:40 Dose: 50 mg Heparin Sodium/Dextrose () 25,000 units in 250 mls @ 11 mls/hr IV .[id number] PENDING SALE TO [facility]; Protocol Last Admin: 11/07/17 22:17 Dose: 11 mls/hr Sodium Chloride () 1,000 mls @ 75 mls/hr IV .[id number] PENDING SALE TO [facility] Last Admin: 11/08/17 00:25 Dose: 75 mls/hr Sodium Chloride () 250 mls @ 15 mls/hr IV .[id number] PRN PRN Reason: SALINE FLUSH Influenza Virus Vaccine Quadrival (Fluarix/Fluzone) 0.5 ml IM .ONCE ONE Stop: 11/08/17 10:01 Insulin Glargine (Lantus (Bkc)) 14 units SC BREAKFAST PENDING SALE TO [facility] Insulin Human Lispro (Humalog Kwikpen (Bkc)) 0 unit SC ACHS PENDING SALE TO [facility]; Protocol Last Admin: 11/08/17 06:48 Dose: Not Given Iron (Feosol) 45 mg PO DAILY PENDING SALE TO [facility] Isosorbide Mononitrate (Imdur) 60 mg PO DAILY PENDING SALE TO [facility] Lorazepam (Ativan) 0.5 mg PO Q4H PRN PRN PRN Reason: ANXIETY Last Admin: 11/07/17 23:26 Dose: 0.5 mg Magnesium Hydroxide (Milk Of Magnesia) 30 ml PO DAILY PRN PRN PRN Reason: Constipation Mirtazapine (Remeron) 15 mg PO QHS PENDING SALE TO [facility] Morphine Sulfate () 1 - 2 mg IV Q4H PRN PRN PRN Reason: PAIN Last Admin: 11/07/17 23:27 Dose: 2 mg Nitroglycerin (Nitrostat) 0.4 mg SUBLINGUAL Q5M PRN PRN Reason: CARDIAC/CHEST PAIN Last Admin: 11/07/17 19:22 Dose: 0.4 mg Ondansetron HCl (Zofran) 4 mg IV Q8H PRN PRN PRN Reason: NAUSEA Promethazine HCl (Phenergan) 12.5 mg IV Q6H PRN PRN PRN Reason: NAUSEA/VOMITING Sodium Chloride () 5 - 30 ml IV UD PRN PRN Reason: SALINE FLUSH Last Admin: 11/08/17 01:31 Dose: 10 ml Sucralfate (Carafate) 1 gm PO 1HR_ACHS MICHAEL Last Admin: 11/08/17 06:40 Dose: 1 gm Venlafaxine HCl (Effexor Xr) 150 mg PO DAILY PENDING SALE TO [facility] Medical Necessity - Tobacco Use Smoking Status: Former smoker Tobacco Use: Non-smoker Assessment/Plan All Active Problems (Last Updated 10/13/17 @ 15:46 by Nat Persaud) Chest pain (Acute) NSTEMI (non-ST elevated myocardial infarction) (Acute) Chest pain (Resolved) Patient is a 72-year-old gentleman with known CAD who presented with chest pain with elevated troponin an assessment of acute non-ST [place] made. Patient admitted to the intensive care unit with consultation placed to cardiology 1. Acute non-STEMI: Patient has been admitted to the intensive care unit managed per protocol with systemic anticoagulation with heparin dual antiplatelet with aspirin and Plavix, hydralazine (patient is allergic to KIRTI inhibitors and statins) with consultation placed to cardiology 2. CAD with previous CABG and stents placement; left heart catheterization on 09/08/17 admission demonstrated occluded SVG graft to OM, patent SVG graft to RCA, patent CHARLES to LAD, patent LCx stents and possibly significant proximal LAD disease, optimization of medical therapy advised 3. 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 Hypertension-blood pressure controlled, home medications continued with dose adjustment as needed 5. Diabetes mellitus type II: Complications including diabetic nephropathy. Placed on long acting insulin, Accu-Cheks a.c. and at bedtime and covered with sliding scale insulin 6. Ischemic cardiomyopathy status post AICD placement 7. Depression with anxiety ; patient on Effexor 8. Anemia secondary to anemia of chronic disorder monitoring H&H with plan to transfuse the patient became symptomatic or hemoglobin fell below 7 9. GERD on PPI 10. DVT prophylaxis on heparin Active Medications Acetaminophen (Tylenol) 650 mg PO Q6H PRN PRN PRN Reason: Non-cardiac pain (mod-severe) Hydrocodone Bitart/Acetaminophen (Hillister 5mg-325mg) 1 - 2 tablet PO Q6H PRN PRN PRN Reason: Moderate-severe pain Last Admin: 11/08/17 07:01 Dose: 1 tablet Al Hydroxide/Mg Hydroxide (Mylanta Ii) 30 ml PO Q6H PRN PRN PRN Reason: Gastric burning [facility]) [facility] Last Admin: 11/08/17 09:30 Dose: 200 mg Aspirin (Ecotrin) [facility] Last Admin: 11/08/17 09:29 Dose: 81 mg Carvedilol (Coreg) 25 mg PO BID PENDING SALE TO [facility] Last Admin: 11/08/17 09:30 Dose: 25 mg Clopidogrel Bisulfate (Plavix) 75 mg PO DAILY PENDING SALE TO [facility] Last Admin: 11/08/17 09:29 Dose: 75 mg Doxazosin Mesylate (Cardura) 2 mg PO QHS PENDING SALE TO [facility] Heparin Sodium (Porcine) (Heparin Na) 0 unit IV UD PRN; Protocol Hydralazine HCl (Apresoline) 50 mg PO TID PENDING SALE TO [facility] Last Admin: 11/08/17 06:40 Dose: 50 mg Heparin Sodium/Dextrose () 25,000 units in 250 mls @ 11 mls/hr IV .[id number] PENDING SALE TO [facility]; Protocol Last Admin: 11/07/17 22:17 Dose: 11 mls/hr Sodium Chloride () 1,000 mls @ 75 mls/hr IV .[id number] PENDING SALE TO [facility] Last Admin: 11/08/17 00:25 Dose: 75 mls/hr Sodium Chloride () 250 mls @ 15 mls/hr IV .[id number] PRN PRN Reason: SALINE FLUSH Influenza Virus Vaccine Quadrival (Fluarix/Fluzone) 0.5 ml IM .ONCE ONE Stop: 11/08/17 10:01 Insulin Glargine (Lantus (Bkc)) 14 units SC BREAKFAST PENDING SALE TO [facility] Last Admin: 11/08/17 09:29 Dose: Not Given Insulin Human Lispro (Humalog Kwikpen (Bk)) 0 unit SC ACHS PENDING SALE TO [facility]; Protocol Last Admin: 11/08/17 06:48 Dose: Not Given Iron (Feosol) 45 mg PO DAILY PENDING SALE TO [facility] Last Admin: 11/08/17 09:30 Dose: 45 mg Isosorbide Mononitrate (Imdur) 60 mg PO DAILY PENDING SALE TO [facility] Last Admin: 11/08/17 09:29 Dose: 60 mg Lorazepam (Ativan) 0.5 mg PO Q4H PRN PRN PRN Reason: ANXIETY Last Admin: 11/07/17 23:26 Dose: 0.5 mg Magnesium Hydroxide (Milk Of Magnesia) 30 ml PO DAILY PRN PRN PRN Reason: Constipation Mirtazapine (Remeron) 15 mg PO QHS PENDING SALE TO [facility] Morphine Sulfate () 1 - 2 mg IV Q4H PRN PRN PRN Reason: PAIN Last Admin: 11/07/17 23:27 Dose: 2 mg Nitroglycerin (Nitrostat) 0.4 mg SUBLINGUAL Q5M PRN PRN Reason: CARDIAC/CHEST PAIN Last Admin: 11/07/17 19:22 Dose: 0.4 mg Ondansetron HCl (Zofran) 4 mg IV Q8H PRN PRN PRN Reason: NAUSEA Promethazine HCl (Phenergan) 12.5 mg IV Q6H PRN PRN PRN Reason: NAUSEA/VOMITING Sodium Chloride () 5 - 30 ml IV UD PRN PRN Reason: SALINE FLUSH Last Admin: 11/08/17 01:31 Dose: 10 ml Sucralfate (Carafate) 1 gm PO 1HR_ACHS PENDING SALE TO [facility] Last Admin: 11/08/17 09:29 Dose: 1 gm Venlafaxine HCl (Effexor Xr) 150 mg PO DAILY PENDING SALE TO [facility] Last Admin: 11/08/17 09:30 Dose: 150 mg Code Visit Inpatient E&M: [id number] [facility] L[facility]
--- NOTE | 2017-11-08 08:46 | PCM.CONS.C ---
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 (10) CKD (chronic kidney disease), stage IV Status: Chronic Reason for Consult Date of Consultation: 11/08/17 History of Present Illness: The patient is a 72 year old white male with a past cardiovascular history which has included underlying CAD, PCI, CABG, ischemic cardiomyopathy, s/p recent primary prevention ICD therapy, hyperlipidemia, hypertension, diabetes mellitus, chronic renal insufficiency who is referred for evaluation of chest discomfort concerning for unstable angina pectoris and findings compatible with an acute non-ST segment elevation TN-based on cardiac enzymes and ECG changes. The patient states he has had recurrent chest discomfort radiating towards his back is similar to what he has had in the past when he is undergone coronary artery revascularization therapy. He states this is occurred with minimal activity and now at rest. It does not necessarily radiate to his jaw neck or upper extremities. He may be somewhat short of breath and dyspneic with as well as somewhat nauseated. He has not had overt emesis. He does not recall becoming diaphoretic. He has not lost consciousness. He presented to the emergency department for further evaluation. He was noted to have indeterminate troponin I levels and ECG changes. In the past his ECG appeared to demonstrate a left bundle branch block pattern. His recent ECG did not demonstrate a left bundle branch block pattern but did demonstrate ST and T wave changes in the inferolateral leads concerning for myocardial ischemia. He was treated medically with nitrates. He states that did help. He was subsequently placed on IV heparin and placed in the ICU for further evaluation and care. He states overall he is felt somewhat better. His cardiac enzymes have been followed and remain in the indeterminate range. His ECG was repeated and demonstrated similar type findings. Of note his creatinine level upon arrival at the hospital was elevated at 2.9. His most recent repeat creatinine level was approximately 2.7. He has denied orthopnea or PND or worsening peripheral pitting edema. He denies palpitations. There is been no near syncope or syncope. He underwent primary prevention ICD placement approximately 1 month ago at [facility]. He states his wound is healed well and his ICD has not discharged. He is also undergone previous noninvasive and invasive cardiovascular evaluation at [facility] in August of this year. Based upon his noninvasive evaluation he had a transthoracic echocardiogram that demonstrated a mildly dilated left ventricle with left ventricular regional wall motion abnormalities with an LVEF of 40-45% with mild MR trivial TR mild AI and an estimated RV systolic pressure of 25 mmHg. He underwent a submaximal stress echocardiogram. This was thought to be negative for inducible myocardial ischemia at the heart rate achieved. He underwent diagnostic cardiac catheterization on 09/06/[address] Barnard. According to the report the left ventricle was thought to be globally dysfunctional with an LVEF of 30%, the left main coronary artery had proximal 75% stenosis, the LAD was occluded, the LCx had been previously stented which was patent, the RCA was occluded, a CHARLES to the LAD was patent, and SVG to the LCx was occluded, and SVG to the right PDA was stented and patent, and there was a comment that his left main disease had significant calcification and may require rotablation therapy in the future. [] Past Medical History Allergies/Adverse Reactions: Allergies atorvastatin calcium [From Lipitor] Allergy (Verified 11/07/17 18:55) Pain in joints verapamil [From Covera-HS] Allergy (Verified 11/07/17 18:55) passes out lisinopril Adverse Reaction (Verified 11/07/17 18:55) Other muscle pain Niacin Preparations Adverse Reaction (Verified 11/07/17 18:55) Pain in joints Cholesterol Meds Adverse Reaction (Uncoded 11/07/17 18:55) Other Home Medications: Ambulatory Orders Medication Instructions Recorded Mirtazapine [Remeron] 15 mg PO QHS 12/02/13 Doxazosin Mesylate [Cardura] 2 mg PO QHS 01/30/15 Insulin Glargine,Hum.rec.anlog 14 unit SQ BREAKFAST 08/20/15 [Lantus] Clopidogrel Bisulfate [Plavix] 75 mg PO DAILY #0 12/04/15 Isosorbide Mononitrate [Imdur] 60 mg PO DAILY #30 tab 09/01/17 Carvedilol [Coreg (Beta Pedro)] 25 mg PO BID #90 tab 09/08/17 Allopurinol 200 mg PO DAILY 11/07/17 Aspirin E.C. [Ecotrin] 81 mg PO DAILY 11/07/17 Slow Release Iron 45 mg PO DAILY 11/07/17 Sucralfate [Carafate] 1 tab PO 4X/DAY 11/07/17 Venlafaxine HCl [Venlafaxine HCl 150 mg PO DAILY 11/07/17 ER] hydrALAZINE [Apresoline] 50 mg PO BID 11/07/17 Past Medical History (Chronic Problems): Chronic Problems (Last Reviewed 09/22/17 @ 08:20 by Bessy Lr) CAD (coronary artery disease) (Chronic) S/P PTCA (percutaneous transluminal coronary angioplasty) (Chronic) Implantable cardioverter-defibrillator (ICD) in situ (Chronic) Ischemic cardiomyopathy (Chronic) 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 Psychiatric History: Anxiety, Depression - *Family History Sibling Family History: Family History (Last Reviewed 09/22/17 @ 08:20 by Bessy Lr) Unknown No problems noted. History Items: Diabetes, Heart Disease Maternal Family History: Family History (Last Reviewed 09/22/17 @ 08:20 by Bessy Lr) Unknown No problems noted. History Items: Heart Disease Paternal Family History: Family History (Last Reviewed 09/22/17 @ 08:20 by Bessy Lr) Unknown No problems noted. History Items: Heart Disease Lives: Spouse/ Significant Other Smoking Status: Former smoker Tobacco Use: Non-smoker Alcohol: None Drugs: None Review of Systems - Review of Systems General: Denies: Fever, Night Sweats, Fatigue Cardiovascular: Reports: Chest Discomfort, Chest Discomfort at Rest, Chest Pressure, Shortness of Breath. Denies: Orthopnea, PND, Peripheral Edema, Palpitations, Lightheadedness, Dizziness, Near Syncope, Syncope Respiratory: Reports: Shortness of Breath Gastrointestinal: Reports: Nausea, - - Belching. Denies: Hematemesis, Hematochezia, Melena Genitourinary: Denies: Dysuria, Hematuria Skin: Denies: Rash Subjectve: Is a 72-year-old white male who appears to be resting comfortably at the moment in no acute distress. Objective: Vital Signs Temp Pulse Resp BP Pulse Ox 97.9 F 93 12 169/90 H 94 11/08/17 08:00 11/08/17 08:00 11/08/17 08:00 11/08/17 08:00 11/08/17 08:00 Oxygen Flow Rate (L/min) 1 Oxygen Delivery Method Room Air Weight: 138 lb 14.259 oz Body Mass Index (BMI) 21.6 Intake and Output for Last 24 Hours 11/06/17 11/07/17 11/08/17 23:59 23:59 23:59 Intake Total 429 / 429 Output Total 250 / 250 Balance 179 / 179 General: Awake, Alert, Oriented x 3, Cooperative, No Acute Distress HEENT: Atraumatic, Normocephalic, PERRL, EOMI, Sclera Non Icteric Oral: Moist Mucosa Neck: Supple, Good ROM, No JVD Chest Wall: Midline Sternotomy Incision, Left Pectoral Incision Lungs: Clear to auscultation Cardiovascular: Regular Rhythm, Premature Ectopic Beats, Normal S1, Normal S2 Vascular: No Carotid Bruits Abdomen: Bowel Sounds Present, Soft, Non Tender Extremities: No Cyanosis, No Clubbing, No edema Neurological: No Focal Motor or Sensory Deficit Psych/Mental Status: Appropriate, Normal Affect 11/07/17 19:05: WBC 9.6, RBC 3.23 L, Hgb 10.1 L, Hct 30.4 L, MCV 94.1 H, MCH 31.3, MCHC 33.2, RDW 14.6, RDW Differential 47.9 H, Plt Count 167, MPV 11.3, Immature Gran % (Auto) 0.200, Neut % (Auto) 56.9, Lymph % (Auto) 10.9 L, [place] % (Auto) 8.4, Eos % (Auto) 22.6 H, Baso % (Auto) 1.0, Absolute Neuts (auto) 5.5, Total Counted Not Reportable 11/07/17 19:05: Sodium 136, Potassium 3.9, Chloride 105, Carbon Dioxide 20.0 L, Anion Gap 11, BUN 43 H, Creatinine 2.99 H, Est GFR (MDRD) Af Amer 27 L, Est GFR (MDRD) Non-Af 22 L, BUN/Creatinine Ratio 14.4, Glucose 236 H, Calcium 8.8, Troponin I 0.469 H 11/07/17 19:05: APTT 30.1 11/07/17 19:05: Magnesium 2.2 11/07/17 23:50: Troponin I 0.485 H 11/08/17 04:05: WBC 7.9, RBC 2.92 L, Hgb 9.0 L, Hct 27.0 L, MCV 92.5, MCH 30.8, MCHC 33.3, RDW 15.0 H, RDW Differential 50.6 H, Plt Count 141 L, MPV 11.0 11/08/17 04:05: Sodium 142, Potassium 3.7, Chloride 111 H, Carbon Dioxide 21.0, Anion Gap 10, BUN 41 H, Creatinine 2.72 H, Est GFR (MDRD) Af Amer 30 L, Est GFR (MDRD) Non-Af 25 L, BUN/Creatinine Ratio 15.1, Glucose 93, Calcium 8.5, Triglycerides 78, Cholesterol 219 H, LDL Cholesterol 156 H, VLDL Cholesterol 16, HDL Cholesterol 47 11/08/17 04:05: Troponin I 0.473 H 11/08/17 04:05: APTT Cancelled 11/08/17 05:00: APTT 246.8 H* Rhythm: sinus rhythm EKG: As noted above ECHO: As noted above Stress Test: As noted above Cardiac Cath: As noted above CXR: Pulmonary evaluation: Post open heart surgery changes: Post ICD placement changes: No acute cardiopulmonary disease process appreciated: Please see official report Assessment/Plan 1. Non-ST segment elevation TN The patient presents with findings compatible with an acute non-ST segment elevation TN. His cardiac enzymes and ECGs have been abnormal. He has been treated medically. He appears to be resting comfortably at the moment. He will continue to be followed. His noninvasive studies can be reassessed as deemed appropriate with respect to his laboratory studies, ECGs, etc. An echocardiogram has been requested to reassess his left ventricular wall motion and systolic function. However ideally he would be considered for repeat diagnostic cardiac catheterization which may lead to further catheter based revascularization therapy of his left coronary artery system with respect to the left main coronary artery system, etc. There is concern in proceeding in this manner based upon his chronic renal insufficiency. Thus this would be a high risk procedure that would need to be performed at a tertiary care center. 2. CAD status post PCI status post CABG The patient has had revascularization therapy in the past both catheter-based and surgical base. His most recent noninvasive and invasive studies are as described above. At the present time he will continue to be monitored. He will continue medical therapy. He will be considered for transfer for a tertiary care center evaluation for high risk coronary artery revascularization therapy with close follow-up of his underlying renal insufficiency. 3. Ischemic mediated cardiomyopathy The patient does have an underlying ischemic mediated cardiomyopathy. He is without symptoms of acute CHF at the present time. He will continue medical management. His overall LV systolic function can be reassessed with an echocardiographic study. 4. Status post ICD The patient has a primary prevention ICD placed at [facility] on 10/05/2017. His incision site appears to be healing well. It has been reported as functioning appropriately. He has had no discharge. 5. Hyperlipidemia He will continue lipid-lowering therapy. 6. Hypertension His blood pressure can be monitored. He will continue medical management. 7. Diabetes mellitus He will need to continue to be cared for by internal medicine. 8. Chronic renal insufficiency He is at increased risk for progressive renal insufficiency with IV contrast related studies. Thus, he may need nephrology input during his evaluation and care. 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 Barnard. S/P review of the case he recommended transfer to a tertiary care center for high risk coronary artery evaluation / intervention. He arranged for the patient to be transferred to [facility] for further evaluation and care. Comment: The patients case has also been discussed with Dr. Ackerman. This note was generated using a voice recognition system and there may be incorrect words, spelling or punctuation that were not noted when reviewing the office note prior to saving.
--- NOTE | 2017-11-08 08:51 | CON.PCM_ITS ---
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 Diabetes mellitus complication status: with unspecified complications Qualified Code(s): E11.8 - Type 2 diabetes mellitus with unspecified complications; Z79.4 - terminal superintendent (current) use of insulin (10) CKD (chronic kidney disease), stage IV Status: Chronic Reason for Consult Date of Consultation: 11/08/17 History of Present Illness: The patient is a 72 year old white male with a past cardiovascular history which has included underlying CAD, PCI, CABG, ischemic cardiomyopathy, s/p recent primary prevention ICD therapy, hyperlipidemia, hypertension, diabetes mellitus, chronic renal insufficiency who is referred for evaluation of chest discomfort concerning for unstable angina pectoris and findings compatible with an acute non-ST segment elevation CA-based on cardiac enzymes and ECG changes. The patient states he has had recurrent chest discomfort radiating towards his back is similar to what he has had in the past when he is undergone coronary artery revascularization therapy. He states this is occurred with minimal activity and now at rest. It does not necessarily radiate to his jaw neck or upper extremities. He may be somewhat short of breath and dyspneic with as well as somewhat nauseated. He has not had overt emesis. He does not recall becoming diaphoretic. He has not lost consciousness. He presented to the emergency department for further evaluation. He was noted to have indeterminate troponin I levels and ECG changes. In the past his ECG appeared to demonstrate a left bundle branch block pattern. His recent ECG did not demonstrate a left bundle branch block pattern but did demonstrate ST and T wave changes in the inferolateral leads concerning for myocardial ischemia. He was treated medically with nitrates. He states that did help. He was subsequently placed on IV heparin and placed in the ICU for further evaluation and care. He states overall he is felt somewhat better. His cardiac enzymes have been followed and remain in the indeterminate range. His ECG was repeated and demonstrated similar type findings. Of note his creatinine level upon arrival at the hospital was elevated at 2.9. His most recent repeat creatinine level was approximately 2.7. He has denied orthopnea or PND or worsening peripheral pitting edema. He denies palpitations. There is been no near syncope or syncope. He underwent primary prevention ICD placement approximately 1 month ago at [facility]. He states his wound is healed well and his ICD has not discharged. He is also undergone previous noninvasive and invasive cardiovascular evaluation at [facility] in August of this year. Based upon his noninvasive evaluation he had a transthoracic echocardiogram that demonstrated a mildly dilated left ventricle with left ventricular regional wall motion abnormalities with an LVEF of 40-45% with mild MR trivial TR mild AI and an estimated RV systolic pressure of 25 mmHg. He underwent a submaximal stress echocardiogram. This was thought to be negative for inducible myocardial ischemia at the heart rate achieved. He underwent diagnostic cardiac catheterization on 09/06/[address] Barnard. According to the report the left ventricle was thought to be globally dysfunctional with an LVEF of 30%, the left main coronary artery had proximal 75% stenosis, the LAD was occluded, the LCx had been previously stented which was patent, the RCA was occluded, a CHARLES to the LAD was patent, and SVG to the LCx was occluded, and SVG to the right PDA was stented and patent, and there was a comment that his left main disease had significant calcification and may require rotablation therapy in the future. [] Past Medical History Allergies/Adverse Reactions: Allergies atorvastatin calcium [From Lipitor] Allergy (Verified 11/07/17 18:55) Pain in joints verapamil [From Covera-HS] Allergy (Verified 11/07/17 18:55) passes out lisinopril Adverse Reaction (Verified 11/07/17 18:55) Other muscle pain Niacin Preparations Adverse Reaction (Verified 11/07/17 18:55) Pain in joints Cholesterol Meds Adverse Reaction (Uncoded 11/07/17 18:55) Other Home Medications: Ambulatory Orders Medication Instructions Recorded Mirtazapine [Remeron] 15 mg PO QHS 12/02/13 Doxazosin Mesylate [Cardura] 2 mg PO QHS 01/30/15 Insulin Glargine,Hum.rec.anlog 14 unit SQ BREAKFAST 08/20/15 [Lantus] Clopidogrel Bisulfate [Plavix] 75 mg PO DAILY #0 12/04/15 Isosorbide Mononitrate [Imdur] 60 mg PO DAILY #30 tab 09/01/17 Carvedilol [Coreg (Beta Pedro)] 25 mg PO BID #90 tab 09/08/17 Allopurinol 200 mg PO DAILY 11/07/17 Aspirin E.C. [Ecotrin] 81 mg PO DAILY 11/07/17 Slow Release Iron 45 mg PO DAILY 11/07/17 Sucralfate [Carafate] 1 tab PO 4X/DAY 11/07/17 Venlafaxine HCl [Venlafaxine HCl 150 mg PO DAILY 11/07/17 ER] hydrALAZINE [Apresoline] 50 mg PO BID 11/07/17 Past Medical History (Chronic Problems): Chronic Problems (Last Reviewed 09/22/17 @ 08:20 by Bessy Lr) CAD (coronary artery disease) (Chronic) S/P PTCA (percutaneous transluminal coronary angioplasty) (Chronic) Implantable cardioverter-defibrillator (ICD) in situ (Chronic) Ischemic cardiomyopathy (Chronic) 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 Psychiatric History: Anxiety, Depression - *Family History Sibling Family History: Family History (Last Reviewed 09/22/17 @ 08:20 by Bessy Lr) Unknown No problems noted. History Items: Diabetes, Heart Disease Maternal Family History: Family History (Last Reviewed 09/22/17 @ 08:20 by Bessy Lr) Unknown No problems noted. History Items: Heart Disease Paternal Family History: Family History (Last Reviewed 09/22/17 @ 08:20 by Bessy Lr) Unknown No problems noted. History Items: Heart Disease Lives: Spouse/ Significant Other Smoking Status: Former smoker Tobacco Use: Non-smoker Alcohol: None Drugs: None Review of Systems - Review of Systems General: Denies: Fever, Night Sweats, Fatigue Cardiovascular: Reports: Chest Discomfort, Chest Discomfort at Rest, Chest Pressure, Shortness of Breath. Denies: Orthopnea, PND, Peripheral Edema, Palpitations, Lightheadedness, Dizziness, Near Syncope, Syncope Respiratory: Reports: Shortness of Breath Gastrointestinal: Reports: Nausea, - - Belching. Denies: Hematemesis, Hematochezia, Melena Genitourinary: Denies: Dysuria, Hematuria Skin: Denies: Rash Subjectve: Is a 72-year-old white male who appears to be resting comfortably at the moment in no acute distress. Objective: Vital Signs Temp Pulse Resp BP Pulse Ox 97.9 F 93 12 169/90 H 94 11/08/17 08:00 11/08/17 08:00 11/08/17 08:00 11/08/17 08:00 11/08/17 08:00 Oxygen Flow Rate (L/min) 1 Oxygen Delivery Method Room Air Weight: 138 lb 14.259 oz Body Mass Index (BMI) 21.6 Intake and Output for Last 24 Hours 11/06/17 11/07/17 11/08/17 23:59 23:59 23:59 Intake Total 429 / 429 Output Total 250 / 250 Balance 179 / 179 General: Awake, Alert, Oriented x 3, Cooperative, No Acute Distress HEENT: Atraumatic, Normocephalic, PERRL, EOMI, Sclera Non Icteric Oral: Moist Mucosa Neck: Supple, Good ROM, No JVD Chest Wall: Midline Sternotomy Incision, Left Pectoral Incision Lungs: Clear to auscultation Cardiovascular: Regular Rhythm, Premature Ectopic Beats, Normal S1, Normal S2 Vascular: No Carotid Bruits Abdomen: Bowel Sounds Present, Soft, Non Tender Extremities: No Cyanosis, No Clubbing, No edema Neurological: No Focal Motor or Sensory Deficit Psych/Mental Status: Appropriate, Normal Affect 11/07/17 19:05: WBC 9.6, RBC 3.23 L, Hgb 10.1 L, Hct 30.4 L, MCV 94.1 H, MCH 31.3, MCHC 33.2, RDW 14.6, RDW Differential 47.9 H, Plt Count 167, MPV 11.3, Immature Gran % (Auto) 0.200, Neut % (Auto) 56.9, Lymph % (Auto) 10.9 L, [place] % (Auto) 8.4, Eos % (Auto) 22.6 H, Baso % (Auto) 1.0, Absolute Neuts (auto) 5.5, Total Counted Not Reportable 11/07/17 19:05: Sodium 136, Potassium 3.9, Chloride 105, Carbon Dioxide 20.0 L, Anion Gap 11, BUN 43 H, Creatinine 2.99 H, Est GFR (MDRD) Af Amer 27 L, Est GFR (MDRD) Non-Af 22 L, BUN/Creatinine Ratio 14.4, Glucose 236 H, Calcium 8.8, Troponin I 0.469 H 11/07/17 19:05: APTT 30.1 11/07/17 19:05: Magnesium 2.2 11/07/17 23:50: Troponin I 0.485 H 11/08/17 04:05: WBC 7.9, RBC 2.92 L, Hgb 9.0 L, Hct 27.0 L, MCV 92.5, MCH 30.8, MCHC 33.3, RDW 15.0 H, RDW Differential 50.6 H, Plt Count 141 L, MPV 11.0 11/08/17 04:05: Sodium 142, Potassium 3.7, Chloride 111 H, Carbon Dioxide 21.0, Anion Gap 10, BUN 41 H, Creatinine 2.72 H, Est GFR (MDRD) Af Amer 30 L, Est GFR (MDRD) Non-Af 25 L, BUN/Creatinine Ratio 15.1, Glucose 93, Calcium 8.5, Triglycerides 78, Cholesterol 219 H, LDL Cholesterol 156 H, VLDL Cholesterol 16, HDL Cholesterol 47 11/08/17 04:05: Troponin I 0.473 H 11/08/17 04:05: APTT Cancelled 11/08/17 05:00: APTT 246.8 H* Rhythm: sinus rhythm EKG: As noted above ECHO: As noted above Stress Test: As noted above Cardiac Cath: As noted above CXR: Pulmonary evaluation: Post open heart surgery changes: Post ICD placement changes: No acute cardiopulmonary disease process appreciated: Please see official report Assessment/Plan 1. Non-ST segment elevation CA The patient presents with findings compatible with an acute non-ST segment elevation CA. His cardiac enzymes and ECGs have been abnormal. He has been treated medically. He appears to be resting comfortably at the moment. He will continue to be followed. His noninvasive studies can be reassessed as deemed appropriate with respect to his laboratory studies, ECGs, etc. An echocardiogram has been requested to reassess his left ventricular wall motion and systolic function. However ideally he would be considered for repeat diagnostic cardiac catheterization which may lead to further catheter based revascularization therapy of his left coronary artery system with respect to the left main coronary artery system, etc. There is concern in proceeding in this manner based upon his chronic renal insufficiency. Thus this would be a high risk procedure that would need to be performed at a tertiary care center. 2. CAD status post PCI status post CABG The patient has had revascularization therapy in the past both catheter-based and surgical base. His most recent noninvasive and invasive studies are as described above. At the present time he will continue to be monitored. He will continue medical therapy. He will be considered for transfer for a tertiary care center ev aluation for high risk coronary artery revascularization therapy with close follow-up of his underlying renal insufficiency. 3. Ischemic mediated cardiomyopathy The patient does have an underlying ischemic mediated cardiomyopathy. He is without symptoms of acute CHF at the present time. He will continue medical management. His overall LV systolic function can be reassessed with an echocardiographic study. 4. Status post ICD The patient has a primary prevention ICD placed at [facility] on 10/05/2017. His incision site appears to be healing well. It has been reported as functioning appropriately. He has had no discharge. 5. Hyperlipidemia He will continue lipid-lowering therapy. 6. Hypertension His blood pressure can be monitored. He will continue medical management. 7. Diabetes mellitus He will need to continue to be cared for by internal medicine. 8. Chronic renal insufficiency He is at increased risk for progressive renal insufficiency with IV contrast related studies. Thus, he may need nephrology input during his evaluation and care. Comment: The patients case was discussed with his primary grants and contracts assistant, Dr. Barnard. S/P review of the case he recommended transfer to a tertiary care center for high risk coronary artery evaluation / intervention. He arranged for the patient to be transferred to [facility] for further evaluation and care. Comment: The patients case has also been discussed with Dr. Ackerman. This note was generated using a voice recognition system and there may be incorrect words, spelling or punctuation that were not noted when reviewing the office note prior to saving.
[2017-11-08] MEDS: Isosorbide Mononitrate 60 MG Tablet PO (09:29)
[2017-11-08] MEDS: Clopidogrel Bisulfate 75 MG Tablet PO (09:29)
[2017-11-08] MEDS: Aspirin E.C. 81 MG Tablet PO (09:29)
[2017-11-08] MEDS: Allopurinol 100 MG Tablet 200 MG PO (09:30)
[2017-11-08] MEDS: Venlafaxine XR 150 MG Capsule PO (09:30)
[2017-11-08] MEDS: Carvedilol 25 MG Tablet PO (09:30)
[2017-11-08 09:32] LABS: CRP, High Sensitivity Cardiac 8.14 mg/L
--- NOTE | 2017-11-08 10:02 | DCINST_ITS ---
- Discharge Diagnoses Current Active Problems: Current Active and Chronic Problems (Last Reviewed 09/22/17 @ 08:20 by Bessy Lr) Chest pain (Acute) NSTEMI (non-ST elevated myocardial infarction) (Acute) CAD (coronary artery disease) (Chronic) S/P PTCA (percutaneous transluminal coronary angioplasty) (Chronic) You will use the following diet at home:: Cardiac Allergies/Adverse Reactions: Allergies atorvastatin calcium [From Lipitor] Allergy (Verified 11/07/17 18:55) Pain in joints verapamil [From Covera-HS] Allergy (Verified 11/07/17 18:55) passes out lisinopril Adverse Reaction (Verified 11/07/17 18:55) Other muscle pain Niacin Preparations Adverse Reaction (Verified 11/07/17 18:55) Pain in joints Cholesterol Meds Adverse Reaction (Uncoded 11/07/17 18:55) Other Medications to take at Discharge Mirtazapine [Remeron] 15 mg PO QHS 12/02/13 Doxazosin Mesylate [Cardura] 2 mg PO QHS 01/30/15 Insulin Glargine,Hum.rec.anlog [Lantus] 14 unit SQ BREAKFAST 08/20/15 Clopidogrel Bisulfate [Plavix] 75 mg PO DAILY #0 12/04/15 Isosorbide Mononitrate [Imdur] 60 mg PO DAILY #30 tab 09/01/17 Carvedilol [Coreg (Beta Pedro)] 25 mg PO BID #90 tab 09/08/17 Allopurinol 200 mg PO DAILY 11/07/17 Aspirin E.C. [Ecotrin] 81 mg PO DAILY 11/07/17 Slow Release Iron 45 mg PO DAILY 11/07/17 Sucralfate [Carafate] 1 tab PO 4X/DAY 11/07/17 Venlafaxine HCl [Venlafaxine HCl ER] 150 mg PO DAILY 11/07/17 hydrALAZINE [Apresoline] 50 mg PO BID 11/07/17 Primary Care Physician: Prasad Concepcion III, MD [Primary Care Provider] - Test Results: Test results from this visit will be discussed in further detail at your follow- up appointment, if applicable. Proposed Discharge Date: 11/08/17
--- NOTE | 2017-11-08 10:02 | PCM.DC.SUM ---
Discharge Date and Diagnosis - Problem List Patient Problems: Active and Suspected Problems (Last Updated 10/13/17 @ 15:46 by Nat Persaud) Chest pain (Acute) NSTEMI (non-ST elevated myocardial infarction) (Acute) Date of Admission: 11/07/17 Date of Discharge: 11/08/17 - Primary Discharge Diagnosis Active and Suspected Problems (Last Updated 10/13/17 @ 15:46 by Nat Persaud) Chest pain (Acute) NSTEMI (non-ST elevated myocardial infarction) (Acute) - Secondary Discharge Diagnosis Chronic Problems (Last Reviewed 09/22/17 @ 08:20 by Bessy Lr) CAD (coronary artery disease) (Chronic) S/P PTCA (percutaneous transluminal coronary angioplasty) (Chronic) Implantable cardioverter-defibrillator (ICD) in situ (Chronic) Ischemic cardiomyopathy (Chronic) 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 Buitrago @ [facility] History of left heart catheterization (Chronic 09/06/17) Atherosclerotic heart disease of [place] coronary artery with other forms of angina pectoris (Chronic) DM2 (diabetes mellitus, type 2) (Chronic) CKD (chronic kidney disease), stage IV (Chronic) History of pulmonary embolism (Chronic) Provoked History of hypertension (Chronic) History of hyperlipidemia (Chronic) History of gout (Chronic) 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) Hospital Course and Treatment Imaging Results: Impressions Chest X-Ray 11/07/17 18:56 IMPRESSION: There are no acute findings. Electronically Signed: Shai Heredia MD at 19:12 EDT , Service support , 11/07/17 18:56 Chest 1 View (Portable) [RAD] Stat Laboratory Results 11/07/17 11/07/17 11/07/17 Range/Units 19:05 19:05 19:05 WBC 9.6 (4.4-11.0) K/mm3 RBC 3.23 L (4.6-6.2) M/mm3 Hgb 10.1 L (13.0-16.5) g/dl Hct 30.4 L (40-54) % MCV 94.1 H (80-94) fL MCH 31.3 (27.0-32.0) pg MCHC 33.2 (32-36) g/gl RDW 14.6 (11.6-14.6) % RDW Differential 47.9 H (35.1-43.9) fl Plt Count 167 (150-450) K/mm3 MPV 11.3 (6.2-12.0) fl Immature Gran % (Auto) 0.200 (0.0-0.9) % Neut % (Auto) 56.9 (47-70) % Lymph % (Auto) 10.9 L (19-41) % Newton % (Auto) 8.4 (0-10) % Eos % (Auto) 22.6 H (0-5) % Baso % (Auto) 1.0 (0-1) % Absolute Neuts (auto) 5.5 (2.0-7.7) X10^3/uL Absolute Lymphs (auto) 1.05 (0.83-4.51) X10^3/ul Total Counted Not Reportable Differential Comment SCANNED Diff Path Review June APTT 30.1 (24.1-36.2) Seconds Sodium 136 (136-145) mmol/L Potassium 3.9 (3.5-5.1) mmol/L Chloride 105 (98-107) mmol/L Carbon Dioxide 20.0 L (21.0-32.0) mmol/L Anion Gap 11 (5-15) BUN 43 H (7-18) mg/dL Creatinine 2.99 H (0.70-1.30) mg/dL Estim Creat Clear Calc 20.57 ml/min Est GFR (MDRD) Af Amer 27 L (>60) mL/min Est GFR (MDRD) Non-Af 22 L (>60) mL/min BUN/Creatinine Ratio 14.4 (10-20) RATIO Glucose 236 H (74-106) mg/dL Calcium 8.8 (8.5-10.1) mg/dL Magnesium (1.6-2.6) mg/dL Troponin I 0.469 H (<0.045) ng/mL C-React Prot High Sens ( - 3.00) mg/L Triglycerides ( - 199) mg/dL Cholesterol (200) mg/dL LDL Cholesterol (0-130) mg/dL VLDL Cholesterol (5-40) mg/dL HDL Cholesterol (40 - ) mg/dL MRSA (PCR) (Negative) POC Glucose (70-110) mg/dL 11/07/17 11/07/17 11/07/17 Range/Units 19:05 23:20 23:50 WBC (4.4-11.0) K/mm3 RBC (4.6-6.2) M/mm3 Hgb (13.0-16.5) g/dl Hct (40-54) % MCV (80-94) fL MCH (27.0-32.0) pg MCHC (32-36) g/gl RDW (11.6-14.6) % RDW Differential (35.1-43.9) fl Plt Count (150-450) K/mm3 MPV (6.2-12.0) fl Immature Gran % (Auto) (0.0-0.9) % Neut % (Auto) (47-70) % Lymph % (Auto) (19-41) % Newton % (Auto) (0-10) % Eos % (Auto) (0-5) % Baso % (Auto) (0-1) % Absolute Neuts (auto) (2.0-7.7) X10^3/uL Absolute Lymphs (auto) (0.83-4.51) X10^3/ul Total Counted Differential Comment Diff Path Review APTT (24.1-36.2) Seconds Sodium (136-145) mmol/L Potassium (3.5-5.1) mmol/L Chloride (98-107) mmol/L Carbon Dioxide (21.0-32.0) mmol/L Anion Gap (5-15) BUN (7-18) mg/dL Creatinine (0.70-1.30) mg/dL Estim Creat Clear Calc ml/min Est GFR (MDRD) Af Amer (>60) mL/min Est GFR (MDRD) Non-Af (>60) mL/min BUN/Creatinine Ratio (10-20) RATIO Glucose (74-106) mg/dL Calcium (8.5-10.1) mg/dL Magnesium 2.2 (1.6-2.6) mg/dL Troponin I 0.485 H (<0.045) ng/mL C-React Prot High Sens ( - 3.00) mg/L Triglycerides ( - 199) mg/dL Cholesterol (200) mg/dL LDL Cholesterol (0-130) mg/dL VLDL Cholesterol (5-40) mg/dL HDL Cholesterol (40 - ) mg/dL MRSA (PCR) Negative (Negative) POC Glucose (70-110) mg/dL 11/08/17 11/08/17 11/08/17 Range/Units 04:05 04:05 04:05 WBC 7.9 (4.4-11.0) K/mm3 RBC 2.92 L (4.6-6.2) M/mm3 Hgb 9.0 L (13.0-16.5) g/dl Hct 27.0 L (40-54) % MCV 92.5 (80-94) fL MCH 30.8 (27.0-32.0) pg MCHC 33.3 (32-36) g/gl RDW 15.0 H (11.6-14.6) % RDW Differential 50.6 H (35.1-43.9) fl Plt Count 141 L (150-450) K/mm3 MPV 11.0 (6.2-12.0) fl Immature Gran % (Auto) (0.0-0.9) % Neut % (Auto) (47-70) % Lymph % (Auto) (19-41) % Newton % (Auto) (0-10) % Eos % (Auto) (0-5) % Baso % (Auto) (0-1) % Absolute Neuts (auto) (2.0-7.7) X10^3/uL Absolute Lymphs (auto) (0.83-4.51) X10^3/ul Total Counted Differential Comment Diff Path Review APTT (24.1-36.2) Seconds Sodium 142 (136-145) mmol/L Potassium 3.7 (3.5-5.1) mmol/L Chloride 111 H (98-107) mmol/L Carbon Dioxide 21.0 (21.0-32.0) mmol/L Anion Gap 10 (5-15) BUN 41 H (7-18) mg/dL Creatinine 2.72 H (0.70-1.30) mg/dL Estim Creat Clear Calc 21.45 ml/min Est GFR (MDRD) Af Amer 30 L (>60) mL/min Est GFR (MDRD) Non-Af 25 L (>60) mL/min BUN/Creatinine Ratio 15.1 (10-20) RATIO Glucose 93 (74-106) mg/dL Calcium 8.5 (8.5-10.1) mg/dL Magnesium (1.6-2.6) mg/dL Troponin I 0.473 H (<0.045) ng/mL C-React Prot High Sens ( - 3.00) mg/L Triglycerides 78 ( - 199) mg/dL Cholesterol 219 H (200) mg/dL LDL Cholesterol 156 H (0-130) mg/dL VLDL Cholesterol 16 (5-40) mg/dL HDL Cholesterol 47 (40 - ) mg/dL MRSA (PCR) (Negative) POC Glucose (70-110) mg/dL 11/08/17 11/08/17 11/08/17 Range/Units 04:05 04:05 05:00 WBC (4.4-11.0) K/mm3 RBC (4.6-6.2) M/mm3 Hgb (13.0-16.5) g/dl Hct (40-54) % MCV (80-94) fL MCH (27.0-32.0) pg MCHC (32-36) g/gl RDW (11.6-14.6) % RDW Differential (35.1-43.9) fl Plt Count (150-450) K/mm3 MPV (6.2-12.0) fl Immature Gran % (Auto) (0.0-0.9) % Neut % (Auto) (47-70) % Lymph % (Auto) (19-41) % Newton % (Auto) (0-10) % Eos % (Auto) (0-5) % Baso % (Auto) (0-1) % Absolute Neuts (auto) (2.0-7.7) X10^3/uL Absolute Lymphs (auto) (0.83-4.51) X10^3/ul Total Counted Differential Comment Diff Path Review APTT Cancelled 246.8 H* (24.1-36.2) Seconds Sodium (136-145) mmol/L Potassium (3.5-5.1) mmol/L Chloride (98-107) mmol/L Carbon Dioxide (21.0-32.0) mmol/L Anion Gap (5-15) BUN (7-18) mg/dL Creatinine (0.70-1.30) mg/dL Estim Creat Clear Calc ml/min Est GFR (MDRD) Af Amer (>60) mL/min Est GFR (MDRD) Non-Af (>60) mL/min BUN/Creatinine Ratio (10-20) RATIO Glucose (74-106) mg/dL Calcium (8.5-10.1) mg/dL Magnesium (1.6-2.6) mg/dL Troponin I (<0.045) ng/mL C-React Prot High Sens 8.14 H ( - 3.00) mg/L Triglycerides ( - 199) mg/dL Cholesterol (200) mg/dL LDL Cholesterol (0-130) mg/dL VLDL Cholesterol (5-40) mg/dL HDL Cholesterol (40 - ) mg/dL MRSA (PCR) (Negative) POC Glucose (70-110) mg/dL 11/08/17 Range/Units 06:47 WBC (4.4-11.0) K/mm3 RBC (4.6-6.2) M/mm3 Hgb (13.0-16.5) g/dl Hct (40-54) % MCV (80-94) fL MCH (27.0-32.0) pg MCHC (32-36) g/gl RDW (11.6-14.6) % RDW Differential (35.1-43.9) fl Plt Count (150-450) K/mm3 MPV (6.2-12.0) fl Immature Gran % (Auto) (0.0-0.9) % Neut % (Auto) (47-70) % Lymph % (Auto) (19-41) % Newton % (Auto) (0-10) % Eos % (Auto) (0-5) % Baso % (Auto) (0-1) % Absolute Neuts (auto) (2.0-7.7) X10^3/uL Absolute Lymphs (auto) (0.83-4.51) X10^3/ul Total Counted Differential Comment Diff Path Review APTT (24.1-36.2) Seconds Sodium (136-145) mmol/L Potassium (3.5-5.1) mmol/L Chloride (98-107) mmol/L Carbon Dioxide (21.0-32.0) mmol/L Anion Gap (5-15) BUN (7-18) mg/dL Creatinine (0.70-1.30) mg/dL Estim Creat Clear Calc ml/min Est GFR (MDRD) Af Amer (>60) mL/min Est GFR (MDRD) Non-Af (>60) mL/min BUN/Creatinine Ratio (10-20) RATIO Glucose (74-106) mg/dL Calcium (8.5-10.1) mg/dL Magnesium (1.6-2.6) mg/dL Troponin I (<0.045) ng/mL C-React Prot High Sens ( - 3.00) mg/L Triglycerides ( - 199) mg/dL Cholesterol (200) mg/dL LDL Cholesterol (0-130) mg/dL VLDL Cholesterol (5-40) mg/dL HDL Cholesterol (40 - ) mg/dL MRSA (PCR) (Negative) POC Glucose 88 (70-110) mg/dL Operations: None Summary of Care Provided: Patient is a 72-year-old gentleman with known CAD who presented with chest pain with elevated troponin an assessment of acute non-ST MO made. Patient admitted to the intensive care unit with consultation placed to cardiology 1. Acute non-STEMI: Patient has been admitted to the intensive care unit managed per protocol with systemic anticoagulation with heparin dual antiplatelet with aspirin and Plavix, hydralazine (patient is allergic to SONU inhibitors and statins) with consultation placed to cardiology Case was discussed with Dr. Barnard the test designer who recommended and arranged for patient to be transferred to [facility] for intervention involving his calcified left main disease 2. CAD with previous CABG and stents placement; left heart catheterization on 09/08/17 admission demonstrated occluded SVG graft to OM, patent SVG graft to RCA, patent CHARLES to LAD, patent LCx stents and possibly significant proximal LAD disease, optimization of medical therapy advised 3. Stage IV chronic kidney disease patient creatinine at baseline consultation placed to patient's bed bug exterminator 4. Hypertension-blood pressure controlled, home medications continued with dose adjustment as needed 5. Diabetes mellitus type II: Complications including diabetic nephropathy. Placed on long acting insulin, Accu-Cheks a.c. and at bedtime and covered with sliding scale insulin 6. Ischemic cardiomyopathy status post AICD placement 7. Depression with anxiety ; patient on Effexor 8. Anemia secondary to anemia of chronic disorder monitoring H&H with plan to transfuse the patient became symptomatic or hemoglobin fell below 7 9. GERD on PPI 10. DVT prophylaxis on heparin Exams at the time of discharge: GENERAL: cooperative HEENT: Atraumatic moist oral mucosa EYES; Anicteric, Normal Conjuctiva NECK; supple, normal thyroid, no distended JVD. RESPIRATORY: Clear to auscultation bilaterally, CARDIOVASCULAR: Regular S1 S2, no audible murmurs GI: soft, non-tender, normoactive bowel sounds, : No Renal angle tenderness; No germain NEURO: Awake; no lateralizing signs. SKIN: No Rash PSYCH; Normal affect Home Medications: Medications to take at Discharge Mirtazapine [Remeron] 15 mg PO QHS 12/02/13 Doxazosin Mesylate [Cardura] 2 mg PO QHS 01/30/15 Insulin Glargine,Hum.rec.anlog [Lantus] 14 unit SQ BREAKFAST 08/20/15 Clopidogrel Bisulfate [Plavix] 75 mg PO DAILY #0 12/04/15 Isosorbide Mononitrate [Imdur] 60 mg PO DAILY #30 tab 09/01/17 Carvedilol [Coreg (Beta Pedro)] 25 mg PO BID #90 tab 09/08/17 Allopurinol 200 mg PO DAILY 11/07/17 Aspirin E.C. [Ecotrin] 81 mg PO DAILY 11/07/17 Slow Release Iron 45 mg PO DAILY 11/07/17 Sucralfate [Carafate] 1 tab PO 4X/DAY 11/07/17 Venlafaxine HCl [Venlafaxine HCl ER] 150 mg PO DAILY 11/07/17 hydrALAZINE [Apresoline] 50 mg PO BID 11/07/17 Primary Care Physician: Prasad Concepcion III, MD [Primary Care Provider] - Disposition: Acute [facility] Minutes spent on discharge:: 35 Patient Condition:: Stable Medical Necessity - Tobacco Use Smoking Status: Former smoker Tobacco Use: Non-smoker Meaningful Use Info Meaningful Use Diagnoses (Choose all that apply): AMI - AMI Aspirin given w/in 24hrs of arrival?: Yes ASA at discharge?: Yes Statins at discharge?: No Reason statins not ordered:: Allergy Sonu/ARB at discharge?: No Reason Sonu/ARB not ordered:: Worsening renal dysfunctn Beta Pedro at discharge?: Yes Done w/ Acute MO measure.: Yes Code Visit Inpatient E&M: 20962 Disch Hosp
--- NOTE | 2017-11-08 10:05 | DS.PCM_ITS ---
Discharge Date and Diagnosis - Problem List Patient Problems: Active and Suspected Problems (Last Updated 10/13/17 @ 15:46 by Nat Persaud) Chest pain (Acute) NSTEMI (non-ST elevated myocardial infarction) (Acute) Date of Admission: 11/07/17 Date of Discharge: 11/08/17 - Primary Discharge Diagnosis Active and Suspected Problems (Last Updated 10/13/17 @ 15:46 by Nat Persaud) Chest pain (Acute) NSTEMI (non-ST elevated myocardial infarction) (Acute) - Secondary Discharge Diagnosis Chronic Problems (Last Reviewed 09/22/17 @ 08:20 by Bessy Lr) CAD (coronary artery disease) (Chronic) S/P PTCA (percutaneous transluminal coronary angioplasty) (Chronic) Implantable cardioverter-defibrillator (ICD) in situ (Chronic) Ischemic cardiomyopathy (Chronic) 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 Buitrago @ [facility] History of left heart catheterization (Chronic 09/06/17) Atherosclerotic heart disease of [place] coronary artery with other forms of angina pectoris (Chronic) DM2 (diabetes mellitus, type 2) (Chronic) CKD (chronic kidney disease), stage IV (Chronic) History of pulmonary embolism (Chronic) Provoked History of hypertension (Chronic) History of hyperlipidemia (Chronic) History of gout (Chronic) 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) Hospital Course and Treatment Imaging Results: Impressions Chest X-Ray 11/07/17 18:56 IMPRESSION: There are no acute findings. Electronically Signed: Shai Heredia MD at 19:12 EDT , Service support , 11/07/17 18:56 Chest 1 View (Portable) [RAD] Stat Laboratory Results 11/07/17 11/07/17 11/07/17 Range/Units 19:05 19:05 19:05 WBC 9.6 (4.4-11.0) K/mm3 RBC 3.23 L (4.6-6.2) M/mm3 Hgb 10.1 L (13.0-16.5) g/dl Hct 30.4 L (40-54) % MCV 94.1 H (80-94) fL MCH 31.3 (27.0-32.0) pg MCHC 33.2 (32-36) g/gl RDW 14.6 (11.6-14.6) % RDW Differential 47.9 H (35.1-43.9) fl Plt Count 167 (150-450) K/mm3 MPV 11.3 (6.2-12.0) fl Immature Gran % (Auto) 0.200 (0.0-0.9) % Neut % (Auto) 56.9 (47-70) % Lymph % (Auto) 10.9 L (19-41) % Yates % (Auto) 8.4 (0-10) % Eos % (Auto) 22.6 H (0-5) % Baso % (Auto) 1.0 (0-1) % Absolute Neuts (auto) 5.5 (2.0-7.7) X10^3/uL Absolute Lymphs (auto) 1.05 (0.83-4.51) X10^3/ul Total Counted Not Reportable Differential Comment SCANNED Diff Path Review June APTT 30.1 (24.1-36.2) Seconds Sodium 136 (136-145) mmol/L Potassium 3.9 (3.5-5.1) mmol/L Chloride 105 (98-107) mmol/L Carbon Dioxide 20.0 L (21.0-32.0) mmol/L Anion Gap 11 (5-15) BUN 43 H (7-18) mg/dL Creatinine 2.99 H (0.70-1.30) mg/dL Estim Creat Clear Calc 20.57 ml/min Est GFR (MDRD) Af Amer 27 L (>60) mL/min Est GFR (MDRD) Non-Af 22 L (>60) mL/min BUN/Creatinine Ratio 14.4 (10-20) RATIO Glucose 236 H (74-106) mg/dL Calcium 8.8 (8.5-10.1) mg/dL Magnesium (1.6-2.6) mg/dL Troponin I 0.469 H (<0.045) ng/mL C-React Prot High Sens ( - 3.00) mg/L Triglycerides ( - 199) mg/dL Cholesterol (200) mg/dL LDL Cholesterol (0-130) mg/dL VLDL Cholesterol (5-40) mg/dL HDL Cholesterol (40 - ) mg/dL MRSA (PCR) (Negative) POC Glucose (70-110) mg/dL 11/07/17 11/07/17 11/07/17 Range/Units 19:05 23:20 23:50 WBC (4.4-11.0) K/mm3 RBC (4.6-6.2) M/mm3 Hgb (13.0-16.5) g/dl Hct (40-54) % MCV (80-94) fL MCH (27.0-32.0) pg MCHC (32-36) g/gl RDW (11.6-14.6) % RDW Differential (35.1-43.9) fl Plt Count (150-450) K/mm3 MPV (6.2-12.0) fl Immature Gran % (Auto) (0.0-0.9) % Neut % (Auto) (47-70) % Lymph % (Auto) (19-41) % Yates % (Auto) (0-10) % Eos % (Auto) (0-5) % Baso % (Auto) (0-1) % Absolute Neuts (auto) (2.0-7.7) X10^3/uL Absolute Lymphs (auto) (0.83-4.51) X10^3/ul Total Counted Differential Comment Diff Path Review APTT (24.1-36.2) Seconds Sodium (136-145) mmol/L Potassium (3.5-5.1) mmol/L Chloride (98-107) mmol/L Carbon Dioxide (21.0-32.0) mmol/L Anion Gap (5-15) BUN (7-18) mg/dL Creatinine (0.70-1.30) mg/dL Estim Creat Clear Calc ml/min Est GFR (MDRD) Af Amer (>60) mL/min Est GFR (MDRD) Non-Af (>60) mL/min BUN/Creatinine Ratio (10-20) RATIO Glucose (74-106) mg/dL Calcium (8.5-10.1) mg/dL Magnesium 2.2 (1.6-2.6) mg/dL Troponin I 0.485 H (<0.045) ng/mL C-React Prot High Sens ( - 3.00) mg/L Triglycerides ( - 199) mg/dL Cholesterol (200) mg/dL LDL Cholesterol (0-130) mg/dL VLDL Cholesterol (5-40) mg/dL HDL Cholesterol (40 - ) mg/dL MRSA (PCR) Negative (Negative) POC Glucose (70-110) mg/dL 11/08/17 11/08/17 11/08/17 Range/Units 04:05 04:05 04:05 WBC 7.9 (4.4-11.0) K/mm3 RBC 2.92 L (4.6-6.2) M/mm3 Hgb 9.0 L (13.0-16.5) g/dl Hct 27.0 L (40-54) % MCV 92.5 (80-94) fL MCH 30.8 (27.0-32.0) pg MCHC 33.3 (32-36) g/gl RDW 15.0 H (11.6-14.6) % RDW Differential 50.6 H (35.1-43.9) fl Plt Count 141 L (150-450) K/mm3 MPV 11.0 (6.2-12.0) fl Immature Gran % (Auto) (0.0-0.9) % Neut % (Auto) (47-70) % Lymph % (Auto) (19-41) % Yates % (Auto) (0-10) % Eos % (Auto) (0-5) % Baso % (Auto) (0-1) % Absolute Neuts (auto) (2.0-7.7) X10^3/uL Absolute Lymphs (auto) (0.83-4.51) X10^3/ul Total Counted Differential Comment Diff Path Review APTT (24.1-36.2) Seconds Sodium 142 (136-145) mmol/L Potassium 3.7 (3.5-5.1) mmol/L Chloride 111 H (98-107) mmol/L Carbon Dioxide 21.0 (21.0-32.0) mmol/L Anion Gap 10 (5-15) BUN 41 H (7-18) mg/dL Creatinine 2.72 H (0.70-1.30) mg/dL Estim Creat Clear Calc 21.45 ml/min Est GFR (MDRD) Af Amer 30 L (>60) mL/min Est GFR (MDRD) Non-Af 25 L (>60) mL/min BUN/Creatinine Ratio 15.1 (10-20) RATIO Glucose 93 (74-106) mg/dL Calcium 8.5 (8.5-10.1) mg/dL Magnesium (1.6-2.6) mg/dL Troponin I 0.473 H (<0.045) ng/mL C-React Prot High Sens ( - 3.00) mg/L Triglycerides 78 ( - 199) mg/dL Cholesterol 219 H (200) mg/dL LDL Cholesterol 156 H (0-130) mg/dL VLDL Cholesterol 16 (5-40) mg/dL HDL Cholesterol 47 (40 - ) mg/dL MRSA (PCR) (Negative) POC Glucose (70-110) mg/dL 11/08/17 11/08/17 11/08/17 Range/Units 04:05 04:05 05:00 WBC (4.4-11.0) K/mm3 RBC (4.6-6.2) M/mm3 Hgb (13.0-16.5) g/dl Hct (40-54) % MCV (80-94) fL MCH (27.0-32.0) pg MCHC (32-36) g/gl RDW (11.6-14.6) % RDW Differential (35.1-43.9) fl Plt Count (150-450) K/mm3 MPV (6.2-12.0) fl Immature Gran % (Auto) (0.0-0.9) % Neut % (Auto) (47-70) % Lymph % (Auto) (19-41) % Yates % (Auto) (0-10) % Eos % (Auto) (0-5) % Baso % (Auto) (0-1) % Absolute Neuts (auto) (2.0-7.7) X10^3/uL Absolute Lymphs (auto) (0.83-4.51) X10^3/ul Total Counted Differential Comment Diff Path Review APTT Cancelled 246.8 H* (24.1-36.2) Seconds Sodium (136-145) mmol/L Potassium (3.5-5.1) mmol/L Chloride (98-107) mmol/L Carbon Dioxide (21.0-32.0) mmol/L Anion Gap (5-15) BUN (7-18) mg/dL Creatinine (0.70-1.30) mg/dL Estim Creat Clear Calc ml/min Est GFR (MDRD) Af Amer (>60) mL/min Est GFR (MDRD) Non-Af (>60) mL/min BUN/Creatinine Ratio (10-20) RATIO Glucose (74-106) mg/dL Calcium (8.5-10.1) mg/dL Magnesium (1.6-2.6) mg/dL Troponin I (<0.045) ng/mL C-React Prot High Sens 8.14 H ( - 3.00) mg/L Triglycerides ( - 199) mg/dL Cholesterol (200) mg/dL LDL Cholesterol (0-130) mg/dL VLDL Cholesterol (5-40) mg/dL HDL Cholesterol (40 - ) mg/dL MRSA (PCR) (Negative) POC Glucose (70-110) mg/dL 11/08/17 Range/Units 06:47 WBC (4.4-11.0) K/mm3 RBC (4.6-6.2) M/mm3 Hgb (13.0-16.5) g/dl Hct (40-54) % MCV (80-94) fL MCH (27.0-32.0) pg MCHC (32-36) g/gl RDW (11.6-14.6) % RDW Differential (35.1-43.9) fl Plt Count (150-450) K/mm3 MPV (6.2-12.0) fl Immature Gran % (Auto) (0.0-0.9) % Neut % (Auto) (47-70) % Lymph % (Auto) (19-41) % Yates % (Auto) (0-10) % Eos % (Auto) (0-5) % Baso % (Auto) (0-1) % Absolute Neuts (auto) (2.0-7.7) X10^3/uL Absolute Lymphs (auto) (0.83-4.51) X10^3/ul Total Counted Differential Comment Diff Path Review APTT (24.1-36.2) Seconds Sodium (136-145) mmol/L Potassium (3.5-5.1) mmol/L Chloride (98-107) mmol/L Carbon Dioxide (21.0-32.0) mmol/L Anion Gap (5-15) BUN (7-18) mg/dL Creatinine (0.70-1.30) mg/dL Estim Creat Clear Calc ml/min Est GFR (MDRD) Af Amer (>60) mL/min Est GFR (MDRD) Non-Af (>60) mL/min BUN/Creatinine Ratio (10-20) RATIO Glucose (74-106) mg/dL Calcium (8.5-10.1) mg/dL Magnesium (1.6-2.6) mg/dL Troponin I (<0.045) ng/mL C-React Prot High Sens ( - 3.00) mg/L Triglycerides ( - 199) mg/dL Cholesterol (200) mg/dL LDL Cholesterol (0-130) mg/dL VLDL Cholesterol (5-40) mg/dL HDL Cholesterol (40 - ) mg/dL MRSA (PCR) (Negative) POC Glucose 88 (70-110) mg/dL Operations: None Summary of Care Provided: Patient is a 72-year-old gentleman with known CAD who presented with chest pain with elevated troponin an assessment of acute non-ST CO made. Patient admitted to the intensive care unit with consultation placed to cardiology 1. Acute non-STEMI: Patient has been admitted to the intensive care unit managed per protocol with systemic anticoagulation with heparin dual antiplatelet with aspirin and Plavix, hydralazine (patient is allergic to SONU inhibitors and statins) with consultation placed to cardiology Case was discussed with Dr. Barnard the foundation assistant who recommended and arranged for patient to be transferred to [facility] for intervention involving his calcified left main disease 2. CAD with previous CABG and stents placement; left heart catheterization on 09/08/17 admission demonstrated occluded SVG graft to OM, patent SVG graft to RCA, patent CHARLES to LAD, patent LCx stents and possibly significant proximal LAD disease, optimization of medical therapy advised 3. 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 Hypertension-blood pressure controlled, home medications continued with dose adjustment as needed 5. Diabetes mellitus type II: Complications including diabetic nephropathy. Placed on long acting insulin, Accu-Cheks a.c. and at bedtime and covered with sliding scale insulin 6. Ischemic cardiomyopathy status post AICD placement 7. Depression with anxiety ; patient on Effexor 8. Anemia secondary to anemia of chronic disorder monitoring H&H with plan to transfuse the patient became symptomatic or hemoglobin fell below 7 9. GERD on PPI 10. DVT prophylaxis on heparin Exams at the time of discharge: GENERAL: cooperative HEENT: Atraumatic moist oral mucosa EYES; Anicteric, Normal Conjuctiva NECK; supple, normal thyroid, no distended JVD. RESPIRATORY: Clear to auscultation bilaterally, CARDIOVASCULAR: Regular S1 S2, no audible murmurs GI: soft, non-tender, normoactive bowel sounds, : No Renal angle tenderness; No germain NEURO: Awake; no lateralizing signs. SKIN: No Rash PSYCH; Normal affect Home Medications: Medications to take at Discharge Mirtazapine [Remeron] 15 mg PO QHS 12/02/13 Doxazosin Mesylate [Cardura] 2 mg PO QHS 01/30/15 Insulin Glargine,Hum.rec.anlog [Lantus] 14 unit SQ BREAKFAST 08/20/15 Clopidogrel Bisulfate [Plavix] 75 mg PO DAILY #0 12/04/15 Isosorbide Mononitrate [Imdur] 60 mg PO DAILY #30 tab 09/01/17 Carvedilol [Coreg (Beta Pedro)] 25 mg PO BID #90 tab 09/08/17 Allopurinol 200 mg PO DAILY 11/07/17 Aspirin E.C. [Ecotrin] 81 mg PO DAILY 11/07/17 Slow Release Iron 45 mg PO DAILY 11/07/17 Sucralfate [Carafate] 1 tab PO 4X/DAY 11/07/17 Venlafaxine HCl [Venlafaxine HCl ER] 150 mg PO DAILY 11/07/17 hydrALAZINE [Apresoline] 50 mg PO BID 11/07/17 Primary Care Physician: Prasad Concepcion III, MD [Primary Care Provider] - Disposition: Acute [facility] Minutes spent on discharge:: 35 Patient Condition:: Stable Medical Necessity - Tobacco Use Smoking Status: Former smoker Tobacco Use: Non-smoker Meaningful Use Info Meaningful Use Diagnoses (Choose all that apply): AMI - AMI Aspirin given w/in 24hrs of arrival?: Yes ASA at discharge?: Yes Statins at discharge?: No Reason statins not ordered:: Allergy Sonu/ARB at discharge?: No Reason Sonu/ARB not ordered:: Worsening renal dysfunctn Beta Pedro at discharge?: Yes Done w/ Acute CO measure.: Yes Code Visit Inpatient E&M: 30905 Disch Hosp
[2017-11-08 12:31] LABS: Bedside Glucose 99 mg/dL (70-110)
[2017-11-08 13:55] LABS: Partial Thromboplast Time 77.5 Seconds (24.1-36.2)
--- NOTE | 2017-11-08 14:40 | NURSING ---
Addendum entered by Lina Moran 11/08/17 14:44: Original Note: report called to [facility] for transfer to room 4219, transported per [facility] present
[2017-11-08 14:59] LABS: Pathologist Review Reviewed
--- NOTE | 2017-11-09 15:26 | CASEMGMT ---
LEE BEASLEY DC Call- pt was transferred to [facility]. Familia ALMENDAREZN LEE ACM
== END 2017-11-08 14:20 | disposition short-term general hospital (02) | DRG 281 ==
LOC: ED 19:12 → ICU 22:21
PROVIDERS: Internal Medicine Cardiovascular Disease; Admitting Provider Family Medicine; Emergency Provider Emergency Medicine; Family Provider Family Medicine; PCP Family Medicine; Visit Provider Internal Medicine
DX: I21.4 Non-ST elevation (NSTEMI) myocardial infarction (principal); N18.4 Chronic kidney disease, stage 4 (severe); Z87.891 Personal history of nicotine dependence; Z95.5 Presence of coronary angioplasty implant and graft; I25.10 Atherosclerotic heart disease of native coronary artery without angina pectoris; Z95.1 Presence of aortocoronary bypass graft; Z95.810 Presence of automatic (implantable) cardiac defibrillator; I25.5 Ischemic cardiomyopathy; I12.9 Hypertensive chronic kidney disease with stage 1 through stage 4 chronic kidney disease, or unspecified chronic kidney disease; Z86.711 Personal history of pulmonary embolism; E11.22 Type 2 diabetes mellitus with diabetic chronic kidney disease; Z79.4 Long term (current) use of insulin; M10.9 Gout, unspecified; Z93.3 Colostomy status
CPT/HCPCS: 71045; 80048; 80061; 82962; 83735; 84484; 85025; 85027; 85730; 86141; 87641; 93005; 93306; 99285; J7030; A4216

== ENCOUNTER → 2017-11-23 14:02 | Outpatient (CLI) | payer MEDICARE, SELFPAY ==
[2017-11-23 15:14] LABS: Hematocrit 29.8 % (40-54); Hemoglobin 9.7 g/dl (13.0-16.5); Mean Corp Hgb Conc 32.6 g/gl (32-36); Mean Corpuscular Hgb 29.8 pg (27.0-32.0); Mean Corpuscular Volume 91.7 fL (80-94); Mean Platelet Vol. 10.7 fl (6.2-12.0); Platelet Count 293 K/mm3 (150-450); RBC Distribution Width CV 14.3 % (11.6-14.6); RBC Distribution Width SD 48.3 fl (35.1-43.9); Red Blood Count 3.25 M/mm3 (4.6-6.2); White Blood Count 9.6 K/mm3 (4.4-11.0)
[2017-11-23 15:15] LABS: Scan Indicated on CBC? Y/N NO
[2017-11-23 15:36] LABS: Albumin, Serum 3.4 g/dL (3.2-5.0); BUN 71 mg/dL (7-18); BUN/Creat Ratio 18.7 RATIO (10-20); Calcium,Total 8.8 mg/dL (8.5-10.1); Chloride 104 mmol/L (98-107); EST Glomerular Filtration Rate 17 mL/min (>60); Est Glom Filt Rate - Afr Amer 20 mL/min (>60); Glucose 106 mg/dL (74-106); Phosphorus 4.5 mg/dL (2.5-4.9); Potassium 4.1 mmol/L (3.5-5.1); Sodium Level 135 mmol/L (136-145)
[2017-11-23 15:42] LABS: PTHIN 262.5 pg/mL (18.4-80.1)
== END ==
PROVIDERS: Family Provider Family Medicine; PCP Family Medicine; Referring Provider Internal Medicine Nephrology; Visit Provider Internal Medicine Nephrology
DX: N18.4 Chronic kidney disease, stage 4 (severe) (principal)
CPT/HCPCS: 36415; 80069; 83970; 85027

== ENCOUNTER → 2017-12-15 12:19 | Outpatient (CLI) | payer MEDICARE, SELFPAY ==
[2017-12-15 13:32] LABS: Albumin, Serum 3.4 g/dL (3.2-5.0); BUN 61 mg/dL (7-18); BUN/Creat Ratio 18.5 RATIO (10-20); Calcium,Total 8.7 mg/dL (8.5-10.1); Chloride 107 mmol/L (98-107); Creatinine, Serum 3.29 mg/dL (0.70-1.30); EST Glomerular Filtration Rate 20 mL/min (>60); Est Glom Filt Rate - Afr Amer 24 mL/min (>60); Glucose 114 mg/dL (74-106); Phosphorus 3.7 mg/dL (2.5-4.9); Potassium 4.7 mmol/L (3.5-5.1); Sodium Level 135 mmol/L (136-145)
== END ==
PROVIDERS: Family Provider Family Medicine; PCP Family Medicine; Referring Provider Internal Medicine Nephrology; Visit Provider Internal Medicine Nephrology
DX: N17.9 Acute kidney failure, unspecified (principal)
CPT/HCPCS: 36415; 80069

== ENCOUNTER → 2018-01-15 11:34 | Outpatient (CLI) | payer MEDICARE, SELFPAY ==
[2018-01-15 12:33] LABS: Hematocrit 36.4 % (40-54); Hemoglobin 11.9 g/dl (13.0-16.5); Mean Corp Hgb Conc 32.7 g/gl (32-36); Mean Corpuscular Hgb 29.9 pg (27.0-32.0); Mean Corpuscular Volume 91.5 fL (80-94); Mean Platelet Vol. 11.6 fl (6.2-12.0); Platelet Count 203 K/mm3 (150-450); RBC Distribution Width CV 14.9 % (11.6-14.6); RBC Distribution Width SD 50.1 fl (35.1-43.9); Red Blood Count 3.98 M/mm3 (4.6-6.2); White Blood Count 8.8 K/mm3 (4.4-11.0)
[2018-01-15 12:37] LABS: Scan Indicated on CBC? Y/N NO
[2018-01-15 13:04] LABS: Albumin, Serum 3.5 g/dL (3.2-5.0); BUN 51 mg/dL (7-18); BUN/Creat Ratio 16.7 RATIO (10-20); Calcium,Total 8.9 mg/dL (8.5-10.1); Chloride 106 mmol/L (98-107); Creatinine, Serum 3.05 mg/dL (0.70-1.30); EST Glomerular Filtration Rate 22 mL/min (>60); Est Glom Filt Rate - Afr Amer 26 mL/min (>60); Ferritin 59 ng/mL (26-388); Glucose 208 mg/dL (74-106); Iron 71 ug/dL (65-175); Iron Binding Capacity,Total 327 ug/dL (250-450); PERCENT IRON SATURATION 21.7 % (15.0-55.0); Phosphorus 3.9 mg/dL (2.5-4.9); Potassium 4.3 mmol/L (3.5-5.1); Sodium Level 140 mmol/L (136-145)
--- OUTSIDE RECORDS SUMMARY | 2018-03-10 17:58 | XMS RPT_ITS ---
:1945 Author Organization OHIP Support Name Relationship Address Phone KHADRA DIXONLIS Unavailable [address] + [place] [address] R Unavailable Unavailable Unavailable GREEN, MERLE Unavailable [address] + [place] [address] R Unavailable Unavailable Unavailable GREEN, MERLE Unavailable [address] + [place] [address] R Unavailable Unavailable Unavailable GREEN, MERLE Unavailable [address] + [place] [address] R Unavailable Unavailable Unavailable GREEN, MERLE Unavailable [address] + [place] [address] R Unavailable Unavailable Unavailable GREEN, MERLE Unavailable [address] + [place] [address] R Unavailable Unavailable Unavailable GREEN, MERLE Unavailable [address] + [place] [address] R Unavailable Unavailable Unavailable R Unavailable Unavailable Unavailable GREEN, MERLE Unavailable [address] + [place] [address] R Unavailable Unavailable Unavailable GREEN, MERLE Unavailable [address] + [place] [address] R Unavailable Unavailable Unavailable GREEN, MERLE Unavailable [address] + [place] [address] R Unavailable Unavailable Unavailable GREEN, MERLE Unavailable [address] + [place] [address] R Unavailable Unavailable Unavailable GREEN, EMRLE Unavailable [address] + [place] [address] R Unavailable Unavailable Unavailable GREEN, MERLE Unavailable [address] + [place] [address] R Unavailable Unavailable Unavailable GREEN, MERLE Unavailable [address] + [place] [address] R Unavailable Unavailable Unavailable GREEN, MERLE Unavailable [address] + [place] [address] R Unavailable Unavailable Unavailable GREEN, MERLE Unavailable [address] + [place] [address] R Unavailable Unavailable Unavailable GREEN, MERLE Unavailable [address] + [place] [address] R Unavailable Unavailable Unavailable GREEN, MERLE Unavailable [address] + [place] [address] R Unavailable Unavailable Unavailable GREEN, MERLE Unavailable [address] + [place] [address] GREEN, RAE Unavailable [address] + [place] [address] R Unavailable Unavailable Unavailable GREEN, MERLE Unavailable [address] + [place] [address] R Unavailable Unavailable Unavailable GREEN, MERLE Unavailable [address] + [place] [address] R Unavailable Unavailable Unavailable GREEN, MERLE Unavailable [address] + [place] [address] R Unavailable Unavailable Unavailable GREEN, MERLE Unavailable [address] + [place] [address] R Unavailable Unavailable Unavailable R Unavailable Unavailable Unavailable GREEN, MERLE Unavailable [address] + [place] [address] MARIAM, RAE Unavailable [address] + [place] [address] R Unavailable Unavailable Unavailable GREEN, MERLE Unavailable [address] + [place] [address] GREEN, RAE Unavailable [address] + [place] [address] R Unavailable Unavailable Unavailable GREEN, MERLE Unavailable [address] + [place] [address] GREEN, RAE Unavailable [address] + [place] [address] R Unavailable Unavailable Unavailable GREEN, MERLE Unavailable [address] + [place] [address] GREEN, RAE Unavailable [address] + [place] [address] R Unavailable Unavailable Unavailable GREEN, MERLE Unavailable [address] + [place] [address] GREEN, RAE Unavailable [address] + [place] [address] R Unavailable Unavailable Unavailable GREEN, MERLE Unavailable [address] + [place] [address] GREEN, RAE Unavailable [address] + [place] [address] R Unavailable Unavailable Unavailable GREEN, MERLE Unavailable [address] + [place] [address] GREEN, RAE Unavailable [address] + [place] [address] R Unavailable Unavailable Unavailable GREEN, MERLE Unavailable [address] + [place] [address] GREEN, RAE Unavailable [address] + [place] [address] R Unavailable Unavailable Unavailable GREEN, MERLE Unavailable [address] + [place] [address] GREEN, RAE Unavailable [address] + [place] [address] R Unavailable Unavailable Unavailable GREEN, MERLE Unavailable [address] + [place] [address] R Unavailable Unavailable Unavailable GREEN, MERLE Unavailable [address] + [place] [address] GREEN, RAE Unavailable [address] + [place] [address] R Unavailable Unavailable Unavailable GREEN, MERLE Unavailable [address] + [place] [address] GREEN, RAE Unavailable [address] + [place] [address] R Unavailable Unavailable Unavailable GREEN, MERLE Unavailable [address] + [place] [address] GREEN, RAE Unavailable [address] + [place] [address] R Unavailable Unavailable Unavailable GREEN, MERLE Unavailable [address] + [place], [place] [id number] [place] [address], RAE Un[address] + [place] [address] R Unavailable Unavailable Unavailable GREEN, MERLE Unavailable [address] + [place] [address] GREEN RAE Un[address] + [place] [address] R Unavailable Unavailable Unavailable GREEN, MERLE Unavailable [address] + [place] [address] GREEN RAE Un[address] + [place] [address] R Unavailable Unavailable Unavailable GREEN, MERLE Unavailable [address] + [place] [address] GREEN RAE Un[address] + [place] [address] R Unavailable Unavailable Unavailable GREEN, MERLE Unavailable [address] + [place] [address] GREEN RAE Un[address] + [place] [address] R Unavailable Unavailable Unavailable GREEN, MERLE Unavailable [address] + [place] [address] MARIAM RAE Unavailable [address] + [place] [address] R Unavailable Unavailable Unavailable Care Team Providers Name Role Phone Tracey Royal Attending Unavailable Cebul III, Ramo Primary Care Unavailable Tracey Royal Referring Unavailable Tracey Royal Attending Unavailable Cebul III, Ramo Primary Care Unavailable Tracey Royal Referring Unavailable Tracey Royal Attending Unavailable Cebul III, Ramo Primary Care Unavailable Cebul III, Ramo Primary Care Unavailable Agyepong, Ezra Admitting Unavailable Jayy Sanford Consulting Unavailable Carmen Hogan Attending Unavailable AgyeponEzra payne Admitting Unavailable AgyepongEzra Attending Unavailable Cebul III, Ramo Primary Care Unavailable Agyepong, Ezra Consulting Unavailable Agyepong, Ezra Admitting Unavailable Jayy Sanford Attending Unavailable Cebul III, Ramo Primary Care Unavailable Jayy Sanford Consulting Unavailable AgyepongEzra Consulting Unavailable Agyepong, Ezra Admitting Unavailable Jayy Sanford Attending Unavailable Cebul III, Ramo Primary Care Unavailable Jayy Sanford Consulting Unavailable Carmen Hogan Consulting Unavailable Agyepong, Ezra Admitting Unavailable Carmen Hogan Attending Unavailable Cebul III, Ramo Primary Care Unavailable Jayy Sanford Consulting Unavailable Carmen Hogan Consulting Unavailable Kavita Hinojosa COMPOSITE BOND TECHNICIAN-C Attending Unavailable Kavita Hinojosa COMPOSITE BOND TECHNICIAN-C Referring Unavailable Cebul III, Ramo Primary Care Unavailable Tracey Royal Attending Unavailable Cebul III, Ramo Primary Care Unavailable Cebul III, Ramo Primary Care Unavailable BurrellPablo blanc Admitting Unavailable Jayy Sanford Consulting Unavailable Ashelfah, Ghasem Attending Unavailable Tracey Royal Consulting Unavailable Pablo Burrell Attending Unavailable Cebul III, Ramo Primary Care Unavailable Burrell, Pablo Admitting Unavailable Jayy Sanford Attending Unavailable Cebul III, Ramo Primary Care Unavailable Jayy Sanford Consulting Unavailable Ashelfah, Ghasem Consulting Unavailable Burrell, Pablo Admitting Unavailable Ashelfah, Ghasem Attending Unavailable Cebul III, Ramo Primary Care Unavailable Jayy Sanford Consulting Unavailable Ashelfah, Ghasem Consulting Unavailable Pablo Burrell Admitting Unavailable Ashelfah, Ghasem Attending Unavailable Cebul III, Ramo Primary Care Unavailable Jayy Sanford Consulting Unavailable Ashelfah, Ghasem Consulting Unavailable BurrellPablo blanc Admitting Unavailable Jayy Sanford Attending Unavailable Cebul III, Ramo Primary Care Unavailable Jayy Sanford Consulting Unavailable Tracey Royal Consulting Unavailable Ashelfah, Ghasem Consulting Unavailable Tracey Royal Attending Unavailable Cebul III, Ramo Primary Care Unavailable Burrell, Pablo Admitting Unavailable Ashelfah, Ghasem Attending Unavailable Cebul III, Ramo Primary Care Unavailable Jayy Sanford Consulting Unavailable Tracey Royal Consulting Unavailable Ashelfah, Ghasem Consulting Unavailable BurrellPablo blanc Admitting Unavailable Jayy Sanford Attending Unavailable Cebul III, Ramo Primary Care Unavailable Jayy Sanford Consulting Unavailable Tracey Royal Consulting Unavailable Ashelfah, Ghasem Consulting Unavailable Tracey Royal Attending Unavailable Cebul III, Ramo Primary Care Unavailable Tracey Royal Referring Unavailable Jayy Sanford Attending Unavailable Cebul III, Ramo Referring Unavailable Cebul III, Ramo Primary Care Unavailable Tracey Royal Attending Unavailable Cebul III, Ramo Primary Care Unavailable Tracey Royal Referring Unavailable Jayy Sanford Attending Unavailable Jayy Sanford Referring Unavailable Cebul III, Ramo Primary Care Unavailable Nat Persaud Attending Unavailable Cebul III, Ramo Referring Unavailable Cebul III, Ramo Primary Care Unavailable Tracey Royal Attending Unavailable Cebul III, Ramo Primary Care Unavailable Ar, Giorgio Attending Unavailable Ar, Giorgio Referring Unavailable Cebul III, Ramo Primary Care Unavailable Ar, Giorgio Attending Unavailable Ar, Giorgio Referring Unavailable Cebul III, Ramo Primary Care Unavailable Ar, Giorgio Consulting Unavailable Jayy Sanford Attending Unavailable Ar, Giorgio Referring Unavailable Cebul III, Ramo Primary Care Unavailable Ar, Giorgio Consulting Unavailable Nat Persaud Attending Unavailable Cebul III, Ramo Referring Unavailable Cebul III, Ramo Primary Care Unavailable Nat Persaud Attending Unavailable Cebul III, Ramo Referring Unavailable Cebul III, Ramo Primary Care Unavailable Jayy Sanford Attending Unavailable Kavita Hinojosa NP-Lila Referring Unavailable Cebul III, Ramo Primary Care Unavailable White, Carmen Admitting Unavailable Erin Pablo Consulting Unavailable Ross Ackerman Attending Unavailable White, Carmen Admitting Unavailable WhiteCarmen Attending Unavailable Cebul III, Ramo Primary Care Unavailable Moodispadave, Pablo Consulting Unavailable White, Carmen Consulting Unavailable White, Carmen Admitting Unavailable Ross Ackerman Attending Unavailable Cebul III, Ramo Primary Care Unavailable Moodclarence, Pablo Consulting Unavailable Ross Ackerman Consulting Unavailable Nat Persaud Attending Unavailable Cebul III, Ramo Referring Unavailable Jayy Sanford Attending Unavailable Cebul III, Ramo Referring Unavailable Tracey Royal Attending Unavailable Cebul III, Ramo Primary Care Unavailable Jayy Sanford Attending Unavailable White, Carmen Referring Unavailable Pablo Khan Attending Unavailable Ross Ackerman Referring Unavailable Tracey Royal Attending Unavailable Cebul III, Ramo Primary Care Unavailable Tracey Royal Attending Unavailable Cebul III, Ramo Primary Care Unavailable Lele, Tracey Referring Unavailable Lele, Tracey Attending Unavailable Cebul III, Ramo Primary Care Unavailable Lele, Tracey Referring Unavailable CEBUL III, RAMO A Attending Unavailable CEBUL III, RAMO A Referring Unavailable CEBUL III, RAMO A Attending Unavailable CEBUL III, RAMO A Referring Unavailable CEBUL III, RAMO A Attending Unavailable CEBUL III, RAMO A Referring Unavailable CEBUL III, RAMO A Referring Unavailable ROSS MORGAN Admitting Unavailable ROSS MORGAN Attending Unavailable ROSS MORGAN Admitting Unavailable ROSS MORGAN Attending Unavailable CEBUL, RAMO Primary Care Unavailable PROBLEMS PROBLEMS DATE TYPE CONDITION / CODE ATTENDING STATUS SOURCE Active Non-ST elevation ROSS MORGAN Active [place] [facility] (NSTEMI) myocardial [facility] Other infarction / Center I21.4(ICD-10) Repository Active Other chest pain / ROSS MORGAN Active [place] 8 R07.89(ICD-10) [facility] Other Center Repository Active Shortness of breath / ROSS MORGAN Active [place] 8 R06.02(ICD-10) [facility] Other Center Repository Active Atherosclerotic heart ROSS MORGAN [facility] 8 disease of tunica-biloxi [facility] Other coronary artery Center without angina Repository pectoris / I25.10(ICD-10) Active Ischemic ROSS MORGAN Active [place] cardiomyopathy / [facility] Other I25.5(ICD-10) Center Repository Active Chronic systolic ROSS MORGAN Active [place] 8 (congestive) heart [facility] Other failure / Center I50.22(ICD-10) Repository Admitting Unknown / UNK(Unknown) ROSS MORGAN Active [address] [facility] Repository Unknown I25.5 - Ischemic [facility] Active [place] [facility] cardiomyopathy / Community I25.5(ICD-10) Hospital Repository Unknown I25.118 - Jayy Sanford Active [facility] 8 Atherosclerotic heart Community disease of [facility] coronary artery with Repository other forms of angina pectoris / I25.118(ICD-10) Unknown Z86.39 - Personal Jayy Sanford history of other Community endocrine, nutritional Hospital and metabolic disease Repository / Z86.39(ICD-10) Unknown I51.9 - Heart disease, Jayy Sanford unspecified / Community I51.9(ICD-10) Hospital Repository Unknown R94.31 - Abnormal Jayy Sanford electrocardiogram Community [ECG] [EKG] / Hospital R94.31(ICD-10) Repository Unknown R07.9 - Chest pain, Jayy Sanford Active [facility] unspecified / Community R07.9(ICD-10) Hospital Repository Unknown I25.110 - Jayy Sanford Active [facility] 8 Atherosclerotic heart Community disease of [facility] coronary artery with Repository unstable angina pectoris / I25.110(ICD-10) Active Encounter for NA Active [place] [address] screening for other [facility] viral diseases / Center Z11.59(ICD-10) Repository Active Type 2 diabetes NA Active [place] [address] mellitus with diabetic [facility] chronic kidney disease Center / E11.22(ICD-10) Repository Active Chronic kidney Active [place] [address] disease, stage 4 Clinic Main (severe) / Center N18.4(ICD-10) Repository Active 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, [address] CBC-COMPLETE BLOOD CNT Collected: 01/15/2018 Status: F Source: [place] NO DIFF 11:38 AM [facility] REPOSITORY TYPE CODE TESTS RESULT OUT OF RANGE REFERENCE UNITS LAB L100.1000 4.4-11.0 K/mm3 Normal WBC 8.8 LAB L100.1200 4.6-6.2 M/mm3 Low RBC 3.98 LAB L100.1300 13.0-16.5 g/dl Low HGB 11.9 LAB L100.1400 40-54 % Low HCT 36.4 LAB L100.1500 80-94 fL Normal MCV 91.5 LAB L100.1600 27.0-32.0 pg Normal MCH 29.9 LAB L100.1700 32-36 g/gl Normal MCHC 32.7 LAB L100.1810 11.6-14.6 % High RDW CV 14.9 LAB L100.1820 35.1-43.9 fl High RDW SD 50.1 LAB L100.1900 150-450 K/mm3 Normal PLT 203 LAB L100.2000 6.2-12.0 fl Normal MPV 11.6 Performed By: #### L100.0500 #### [facility] [address] [place], [place], [address] RENAL PROFILE Collected: 01/15/2018 Status: F Source: [place] 11:38 AM [facility] REPOSITORY TYPE CODE TESTS RESULT OUT OF RANGE REFERENCE UNITS LAB L501.0100 74-106 mg/dL High GLU 208 Result Comment: Glucose result greater than or equal to 200 mg/dL suggests DIABETES MELLITUS per A.D.A. criteria. Please note revised GLUCOSE reference range effective 2017. LAB L501.1000 7-18 mg/dL High BUN 51 LAB L501.1100 0.70-1.30 mg/dL High CREAT,SERUM 3.05 Result Comment: The validity of the calculated GFR AND GFRAA in patients over 70 years has not been determined. Clinical correlation is essential. LAB L501.1110 >60 mL/min Low EST GFR 22 Result Comment: Non- GFR Calc LAB L501.1115 >60 mL/min Low EST GFR - AA 26 Result Comment: GFR Calc LAB L501.1300 10-20 RATIO Normal BUN/CRE 16.7 LAB L501.1800 3.2-5.0 g/dL Normal ALB 3.5 LAB L501.2200 8.5-10.1 mg/dL CA Normal 8.9 LAB L501.2300 2.5-4.9 mg/dL Normal PHOS 3.9 LAB L501.5300 136-145 mmol/L NA Normal 140 LAB L501.5600 3.5-5.1 mmol/L K Normal 4.3 LAB L501.5900 98-107 mmol/L CL Normal 106 LAB L501.6100 21.0-32.0 mmol/L Normal CO2 23.0 Performed By: #### L500.3600, L503.6030, L503.6550 #### [facility] [address] [place], [place], [address] IRON+IRON BINDING Collected: 01/15/2018 Status: F Source: [place] 11:38 AM [facility] REPOSITORY TYPE CODE TESTS RESULT OUT OF RANGE REFERENCE UNITS LAB L503.6075 250-450 ug/dL TIBC Normal 327 LAB L503.6150 65-175 ug/dL IRON Normal 71 LAB L503.6250 15.0-55.0 % IRON Normal SATURATION 21.7 Performed By: #### L500.3600, L503.6030, L503.6550 #### [facility] [address] [place], [place], [address] FERRITIN Collected: 01/15/2018 Status: F Source: [place] 11:38 AM [facility] REPOSITORY TYPE CODE TESTS RESULT OUT OF RANGE REFERENCE UNITS LAB L503.6550 26-388 ng/mL Normal FERRITIN 59 Performed By: #### L500.3600, L503.6030, L503.6550 #### [facility] [address] [place], [address] RENAL PROFILE Collected: 12/15/2017 Status: F Source: [place] 12:30 PM [facility] REPOSITORY TYPE CODE TESTS RESULT OUT OF RANGE REFERENCE UNITS LAB L501.0100 74-106 mg/dL High GLU 114 Result Comment: Fasting Glucose result from 100 to 125 mg/dL suggests IMPAIRED HOMEOSTASIS per A.D.A. criteria. Please note revised GLUCOSE reference range effective 2017. LAB L501.1000 7-18 mg/dL High BUN 61 LAB L501.1100 0.70-1.30 mg/dL High CREAT,SERUM 3.29 Result Comment: The validity of the calculated GFR AND GFRAA in patients over 70 years has not been determined. Clinical correlation is essential. LAB L501.1110 >60 mL/min Low EST GFR 20 Result Comment: Non- GFR Calc LAB L501.1115 >60 mL/min Low EST GFR - AA 24 Result Comment: GFR Calc LAB L501.1300 10-20 RATIO Normal BUN/CRE 18.5 LAB L501.1800 3.2-5.0 g/dL Normal ALB 3.4 LAB L501.2200 8.5-10.1 mg/dL CA Normal 8.7 LAB L501.2300 2.5-4.9 mg/dL Normal PHOS 3.7 LAB L501.5300 136-145 mmol/L Low NA 135 LAB L501.5600 3.5-5.1 mmol/L K Normal 4.7 LAB L501.5900 98-107 mmol/L CL Normal 107 LAB L501.6100 21.0-32.0 mmol/L Normal CO2 22.0 Performed By: #### L500.3600 #### [facility] [address], [address] CNNURSE Observed: 12/11/2017 Status: COMPLETED Source: [place] 10:45 AM [facility] REPOSITORY Nurse Visit (FAMPWS) ANGIE DIXON ([id number]) 1945 M Date Time Provider Department 12/11/17 10:45 AM [facility] During your visit today, we recorded the following information about you: Pulse Blood pressure 76/minute 130/70 Cheryl Delaney LPN 12/11/2017 10:53 AM Signed Manual Readin/70 Pulse: 76 BP w/Orthostatic Vitals Date and Time Orthostatic BP Orthostatic Pulse BP Pulse BP Position BP Site BP Cuff Size 12/11/17 1052 128/71 80 -- -- Standing Right Arm -- 12/11/17 1051 152/76 78 -- -- Sitting Right Arm -- 12/11/17 1050 117/76 76 -- -- Supine Right Arm -- 12/11/17 1049 -- -- 130/70 76 -- -- -- Reason for blood pressure check - Medication adjustment Patient is: Taking medication as prescribed Yes Took medication today Yes If no, date medication last taken N/A Experiencing side effects No BP was low normal at last appt 11/27/17. Isosorbide was decreased to 1/2 tablet daily. Tolerating medication change well. Taking all other medications as prescribed; did state that Lasix is currently on hold per Dr Royal. Does state that he is having problems with itching at night. Continues with intermittent dizziness/lightheadedness; mostly with positional changes. Denies any chest pain, shortness of breath, or headaches. Daily caffeine use. Past personal history of tobacco use; no current exposure. Alert and oriented. Pt has been identified by name and birthdate: Yes Allergies reviewed: Yes Latex allergy: no. Medication - prescribed and OTC reviewed and updated: Yes Do you need any prescription refills prior to your next visit: No Health Maintenance: Reviewed and not up to date and provider notified Patient advised that he would be contacted after review by PCP. Cheryl Delaney LPN Referring Provider: RAMO MOREIRA III [[id number]] Allergies As of Date: 12/11/2017 Noted Allergy Reaction ATORVASTATIN CALCIUM 11/08/2017 5 - Intolerance Comments: Joint pains COVERA-HS (VERAPAMIL HCL) 01/27/2005 5 - Intolerance Comments: passed out LISINOPRIL 03/11/2006 3 - Cough NIASPAN (NIACIN) 04/28/2009 2 - Rash Date Reviewed: 11/27/2017 Reviewed by: Roseanne ([facility]) HANNAH Sarabia - Fully Assessed Reason for Visit: Blood Pressure Check [195] Primary Visit Diagnosis:Essential hypertension, benign [I10] Other Visit Diagnosis:Orthostatic hypotension [I95.1] Prescriptions as of 12/11/2017 Sig: CALCITRIOL 0.25 MCG CAPSULE Take 0.25 mcg by mouth once d* ISOSORBIDE MONONITRATE ER 60 * Take 0.5 tablets by mouth onc* DILTIAZEM SR 120 MG 24 HR CAP Take 1 capsule by mouth once * PANTOPRAZOLE 40 MG TABLET,DEL* Take 1 tablet by mouth DAILY * Patient taking differently: Take 40 mg by mouth twice gaudencio* FERROUS SULFATE 325 MG (65 MG* Take 45 mg by mouth daily wit* SUCRALFATE 1 GRAM TABLET Take 1 tablet by mouth before* Patient taking differently: Take 1 g by mouth twice daily* CARVEDILOL 25 MG TABLET Take 25 mg by mouth twice gaudencio* HYDRALAZINE 50 MG TABLET Take 50 mg by mouth twice gaudencio* ALLOPURINOL 100 MG TABLET Take 1 tablet by mouth once d* VENLAFAXINE 75 MG TABLET Take 2 tablets by mouth once * INSULIN GLARGINE (U-100) 100 * Inject 14 Units subcutaneousl* DOXAZOSIN 4 MG TABLET Take 1 tablet by mouth once d* Patient taking differently: Take 4 mg by mouth daily at b* PEN NEEDLE, DIABETIC 29 GAUGE* Use one needle per dose. 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] INVALID FOR*04/22/2010 UNEQUAL LEG LENGTH [M21.70] INVALID FOR* Hyposmolality and/or hyponatremia [E87.1] INVALID FOR*07/09/2014 Anemia, unspecified [D64.9] INVALID FOR*07/09/2014 Coronary atherosclerosis [I25.10] INVALID FOR* Contact dermatitis and other eczema, due to uns*INVALID FOR*07/09/2014 Embolism and thrombosis of unspecified site (HC*INVALID FOR*07/09/2014 PULM EMBOLISM/INFARCT IATROGENIC [T81.718A, I26* 07/09/2014 DVT-ARM [I82.629] 07/09/2014 Abscess of intestine [K63.0] INVALID FOR*07/09/2014 Gout [M10.9] INVALID FOR* Biceps tendon rupture [S46.219A] INVALID FOR*07/09/2014 Benign prostatic hyperplasia with urinary obstr*INVALID FOR* Chronic depression [F32.9] INVALID FOR* Hyperkalemia [E87.5] INVALID FOR*05/25/2017 Atherosclerosis of tunica-biloxi coronary artery of na*INVALID FOR* Hyperlipidemia LDL goal <100 [E78.5] INVALID FOR* 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] INVALID FOR* Encounter for screening for malignant neoplasm *INVALID FOR*01/22/2015 Type 2 diabetes mellitus with stage 4 chronic k*INVALID FOR* Acute kidney failure, unspecified (HCC) [N17.9] INVALID FOR*09/18/2017 Exposure to Agent [place] [Z77.098] INVALID FOR* History of colostomy [EKJ3488] INVALID FOR* History of gout [Z87.39] INVALID FOR* History of hypertension [Z86.79] INVALID FOR* History of pulmonary embolism [Z86.711] INVALID FOR* Peripheral vascular disease, unspecified (HCC) *INVALID FOR* NSTEMI (non-ST elevated myocardial infarction) *INVALID FOR*11/10/2017 S/P angioplasty with stent [Z95.9] INVALID FOR* Systolic heart failure (HCC) [I50.20] INVALID FOR* GERD (gastroesophageal reflux disease) [K21.9] INVALID FOR* History of coronary artery bypass surgery [Z95.*INVALID FOR* History of cardiac catheterization [Z98.890] INVALID FOR* Ischemic cardiomyopathy [I25.5] INVALID FOR* Heart disease [I51.9] INVALID FOR* Implantable cardioverter-defibrillator (ICD) in*INVALID FOR* Personal history of other endocrine, nutritiona*INVALID FOR* Encounter Status:Closed by CHERYL DELANEY LPN on 12/11/17 PROGRESS Observed: 12/11/2017 Status: COMPLETED Source: [facility]INER 10:30 AM [facility] REPOSITORY O ID: [id number] Author: Cheryl Delaney LPN Service: (none) Author Type: (none) Type: Progress Notes Filed: 12/11/2017 10:53 AM Note Text: Manual Readin/70 Pulse: 76 BP w/Orthostatic Vitals Date and Time Orthostatic BP Orthostatic Pulse BP Pulse BP Position BP Site BP Cuff Size 12/11/17 1052 128/71 80 -- -- Standing Right Arm -- 12/11/17 1051 152/76 78 -- -- Sitting Right Arm -- 12/11/17 1050 117/76 76 -- -- Supine Right Arm -- 12/11/17 1049 -- -- 130/70 76 -- -- -- Reason for blood pressure check - Medication adjustment Patient is: Taking medication as prescribed Yes Took medication today Yes If no, date medication last taken N/A Experiencing side effects No BP was low normal at last appt 11/27/17. Isosorbide was decreased to 1/2 tablet daily. Tolerating medication change well. Taking all other medications as prescribed; did state that Lasix is currently on hold per Dr Royal. Does state that he is having problems with itching at night. Continues with intermittent dizziness/lightheadedness; mostly with positional changes. Denies any chest pain, shortness of breath, or headaches. Daily caffeine use. Past personal history of tobacco use; no current exposure. Alert and oriented. Pt has been identified by name and birthdate: Yes Allergies reviewed: Yes Latex allergy: no. Medication - prescribed and OTC reviewed and updated: Yes Do you need any prescription refills prior to your next visit: No Health Maintenance: Reviewed and not up to date and provider notified Patient advised that he would be contacted after review by PCP. Cheryl Delaney LPN PROGRESS Observed: 11/27/2017 Status: COMPLETED Source: RINER 10:02 AM [facility] REPOSITORY [facility] [place] ID: [id number] Author: Ramo Moreira III Service: (none) Author Type: Physician Type: Progress Notes Filed: 11/27/2017 1:30 PM Note Text: SUBJECTIVE: This is a 72 year old male that is here today for Chronic Medical Conditions. 1. depression--better. Now able to exercise again. Denies depression or suicidal thoughts 2. rash not improving--on lat R thigh and lat r malleolus for 1 yr in spite of anti-fungal cream 3. episodic dizziness almost to the point of syncope--placed on imdur 60 mg daily in 2017. 4. ASHD--s/p PTCA and stent in Oct. No angina, but he noted pain from interscapular area to ant chest when he lies down--no such episodes since PTCA. Discharge medication list reviewed from 11/10/17. His EKG from 11/07/[address] abnormality with possible inferolateral subendocardial injury. Now he has no chest pain, no angina, no dyspnea on exertion. No claudication. 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 ([facility]) - BPH (benign prostatic hypertrophy) with urinary obstruction 07/09/2014 - CAD (coronary artery disease) - Chronic renal insufficiency - DVT of upper extremity (deep vein thrombosis) ([facility]) - Esophageal reflux - Essential hypertension, benign - Gout 04/22/2010 - Hx of CABG 3 - Iatrogenic pulmonary embolism and infarction ([facility]) - LV dysfunction - NSTEMI (non-ST elevated myocardial infarction) ([facility]) 2012 - Other and unspecified hyperlipidemia - Type 2 diabetes mellitus with stage 4 chronic kidney disease ([facility]) 06/05/2015 - Unequal leg length (acquired) Current Outpatient Prescriptions on File Prior to Visit: diltiazem CD (CARDIZEM CD, CARTIA XT) 120 mg 24 hr capsule Take 1 capsule by mouth once daily. pantoprazole DR (PROTONIX) 40 mg tablet Take 1 tablet by mouth DAILY (6 AM). (Patient taking differently: Take 40 mg by mouth twice daily. ) ferrous sulfate (IRON, FERROUS SULFATE,) 325 mg (65 mg iron) tablet Take 45 mg by mouth daily with breakfast. sucralfate (CARAFATE) 1 gram tablet Take 1 tablet by mouth before meals and at bedtime. (Patient taking differently: Take 1 g by mouth twice daily before meals (0600/1600). and at bedtime ) furosemide (LASIX) 20 mg tablet Take 2 tablets by mouth once daily. carvedilol (COREG) 25 mg tablet Take 25 mg by mouth twice daily with meals. hydrALAZINE (APRESOLINE) 50 mg tablet Take 50 mg by mouth twice daily. isosorbide mononitrate ER (IMDUR) 60 mg 24 hr tablet Take 60 mg by mouth once daily. allopurinol (ZYLOPRIM) 100 mg tablet Take 1 tablet by mouth once daily. For gout. venlafaxine (EFFEXOR) 75 mg tablet Take 2 tablets by mouth once daily. insulin glargine (LANTUS SOLOSTAR U-100 INSULIN) 100 unit/mL (3 mL) inpn Inject 14 Units subcutaneously once daily. doxazosin (CARDURA) 4 mg tablet Take 1 tablet by mouth once daily. (Patient taking differently: Take 4 mg by mouth daily at bedtime. ) Insulin [place], Disposable, (PEN NEEDLE) 29 gauge X 1/2 ndle Use one needle per dose. one per day aspirin, enteric coated (ASPIR-LOW) 81 mg EC tablet Take 1 tablet by mouth once daily. clopidogrel (PLAVIX) 75 mg tablet Take 1 tablet by mouth once daily. 9274 mirtazapine 15 mg tablet Take 1 tablet by mouth daily at bedtime. No current facility-administered medications on file prior to visit. FAMILY HISTORY Problem Relation Age of Onset - Stroke Mother - Stroke Father Social History Substance Use Topics - Smoking status: Former Smoker Packs/day: 3.00 Years: 3.00 Types: Cigarettes Quit date: 09/20/1971 - Smokeless tobacco: Never Used - Alcohol use No BP 119/68 Pulse 88 Resp 16 Wt 75.3 kg (166 lb) BMI 26.00 kg/m? . BP 159/80, pulse 83 supine BP 127/103, pulse 85 sitting BP 110/68, pulse 89 standing OBJECTIVE: APPEARANCE Well appearing, alert, in no acute distress, well-hydrated, well nourished. skin: several erythematous macules with peripheral scaling --one on lat R thigh, ant R thigh , and lat R ankle. NECK Supple, no adenopathy; thyroid symmetric, normal size, no bruits HEART RRR with normal S1 and S2, no murmurs, no gallops, no JVD appreciated LUNG clear to auscultation EXTREMITIES Extremities normal, No deformities, No skin discoloration, No edema and Normal pulses bilaterally. Appearance: well dressed well groomed, cooperative and pleasant Behavior: good eye contact Speech: fluent and coherent Mood: euthymic Affect: appropriate Perceptions: none Thought process: goal directed Thought Content: normal Intelligence level: normal Insight: good Judgment: good ASSESSMENT: orthostatic hypotension and near syncope ASHD, s/p PTCA--stable angina depression--improved rash-? etiology hypertension--at goal PLAN: healthy diet and regular exercise same medications for now I will discuss with Dr Sanford for possible reduction in isosorbide dose in order to reduce lightheadedness--after discussion with the office staff I will recommend reducing imdur 30mg daily refer to virtualization architect regarding resistant rash 30 min visit JENNY Pitts MD, III MD PROGRESS Observed: 11/27/2017 Status: COMPLETED Source: RINER 9:44 AM [facility] REPOSITORY O ID: [id number] Author: Roseanne Sarabia MA Service: (none) Author Type: Trade Manager Type: Progress Notes Filed: 11/27/2017 1:30 PM Note Text: Cosigned by: Crissy Broussard Pharmd at 11/13/2017 ?1:05 PM Attestation signed by Crissy Broussard Pharmd at 11/13/2017 1:05 PM (Updated) ? Provider Action/FYI: ? Dr Moreira, ? ? Per reconcile dispense report and [facility] pharmacy, noted patient may be non-adherent with medications. Please review at NOV (11/27/17). May consider consult to clinical pharmacist if non-adherence identified. ? ? Also, patient has increased dose of protonix to BID. ? ? Estimated Creatinine Clearance: 23.7 mL/min (A) (based on SCr of 2.59 mg/dL (H)). ? Time spent on patient: 0-15 minutes ? Appointments for Next 60 Days ? Date Time Provider Location Dept Phone ? 11/27/2017 9:40 AM LILLIE RAMO ALVARADO [facility] [phone] ? ? ? I reviewed the medication history and agree as documented. I have adjusted the medication list to accurately reflect any approved changes from the medication history. I have reviewed patient's medication list for correct doses, drug interactions, and any renal dose adjustments. ? Estimated Creatinine Clearance: 23.7 mL/min (A) (based on SCr of 2.59 mg/dL (H)). ? Any applicable changes have been noted in italics. ? Crissy Broussard, PharmD November 13, 2017 12:53 PM ? Expand All Collapse All TRANSITION CARE MANAGEMENT (TCM) INITIAL CONTACT ? Provider Action/FYI: ? ? Able to complete medication review. Patient would like to keep current PCP appointment. ? ? Initial contact with patient post discharge, spoke to patient. Patient identified by name and . ? Summary: -Pt discharged from [facility] on 11/10/17. -Follow up appointment on 11/27/17. -Medication review done Yes. -Admitted for Angina ? ALLERGIES ALLERGIES Allergen Reactions - Atorvastatin Calcium Intolerance ? ? Joint pains ? - Covera-Hs [Verapami* Intolerance ? ? passed out - Lisinopril Cough - Niaspan [Niacin] Rash ? Legend: Stopped,?New,?Changed,?Added to list Medication List Medication Directions Comments Action/Plan allopurinol (ZYLOPRIM) 100 mg tablet Take 1 tablet by mouth once daily. For gout. ? ? Discontinued: 11/08/2017 4:09 PM ? Patient no longer takes Discontinued: 11/08/2017 4:09 PM ? ? ? aspirin, enteric coated (ASPIR-LOW) 81 mg EC tablet Take 1 tablet by mouth once daily. ? ? carvedilol (COREG) 25 mg tablet Take 25 mg by mouth twice daily with meals. ? ? clopidogrel (PLAVIX) 75 mg tablet Take 1 tablet by mouth once daily. 9274 ? ? clotrimazole- betamethasone (LOTRISONE) cream Apply 1 application to affected area twice daily. ? ? Discontinued: 11/10/2017 1:30 PM ? Duplicate diltiazem CD (CARDIZEM CD, CARTIA XT) 120 mg 24 hr capsule Take 1 capsule by mouth once daily. ? filled doxazosin (CARDURA) 4 mg tablet Take 1 tablet by mouth once daily. Patient taking differently: Take 4 mg by mouth daily at bedtime. ? ? ? ferrous sulfate (IRON, FERROUS SULFATE,) 325 mg (65 mg iron) tablet Take 45 mg by mouth daily with breakfast. ? ? furosemide (LASIX) 20 mg tablet Take 2 tablets by mouth once daily. ? ? hydrALAZINE (APRESOLINE) 50 mg tablet Take 50 mg by mouth twice daily. ? ? insulin glargine (LANTUS SOLOSTAR U- 100 INSULIN) 100 unit/mL (3 mL) inpn Inject 14 Units subcutaneously once daily. ? ? Insulin [place], Disposable, (PEN NEEDLE) 29 gauge X 1/2 ndle Use one needle per dose. one per day ? ? isosorbide mononitrate ER (IMDUR) 60 mg 24 hr tablet Take 60 mg by mouth once daily. ? ? Discontinued: 11/08/2017 4:15 PM ? ? ? mirtazapine 15 mg tablet Take 1 tablet by mouth daily at bedtime. ? ? pantoprazole DR (PROTONIX) 40 mg tablet Take 1 tablet by mouth DAILY (6 AM). Patient taking differently: Take 40 mg by mouth twice daily. ? ? Patient said this dose works better for him Discontinued: 11/08/2017 4:17 PM ? ? Discontinued: 11/08/2017 4:18 PM ? ? sucralfate (CARAFATE) 1 gram tablet Take 1 tablet by mouth before meals and at bedtime. Patient taking differently: Take 1 g by mouth twice daily before meals (0600/1600). and at bedtime ? ? Patient only eats twice daily venlafaxine (EFFEXOR) 75 mg tablet Take 2 tablets by mouth once daily. ? ? ? Medication History: ? Patient Adherence: Good ? Source of History: Medication list ? The above information represents the best possible medication history: Yes ? Additional Comments: Reviewed medication list with patient. Patient has no questions or concerns at his time. Patients list is current and up to date. I will follow up with patient on 12/06/17. ? Time spent on patient: 30-45 minutes ? Yesica Vasquez Pharm-T November 13, 2017 11:03 AM ? ? CNOV Observed: 11/27/2017 Status: COMPLETED Source: RINER 9:40 AM [facility] REPOSITORY [facility] ANGIE DIXON ([id number]) 1945 M Date Time Provider Department 11/27/17 9:40 AM RAMO MOREIRA III [facility] During your visit today, we recorded the following information about you: Pulse Respiration Blood pressure Weight 88/minute 16/minute 119/68 75.3 kg [facility] [place] 11/27/2017 1:30 PM Signed Cosigned by: Crissy Kingd at 11/13/2017 ?1:05 PM Attestation signed by Crissy Kingd at 11/13/2017 1:05 PM (Updated) ? Provider Action/FYI: ? Dr Moreira, ? ? Per reconcile dispense report and [facility] pharmacy, noted patient may be non-adherent with medications. Please review at NOV (11/27/17). May consider consult to clinical pharmacist if non-adherence identified. ? ? Also, patient has increased dose of protonix to BID. ? ? Estimated Creatinine Clearance: 23.7 mL/min (A) (based on SCr of 2.59 mg/dL (H)). ? Time spent on patient: 0-15 minutes ? Appointments for Next 60 Days ? Date Time Provider Location Dept Phone ? 11/27/2017 9:40 AM RAMO MOREIRA III [facility] [phone] ? ? ? I reviewed the medication history and agree as documented. I have adjusted the medication list to accurately reflect any approved changes from the medication history. I have reviewed patient's medication list for correct doses, drug interactions, and any renal dose adjustments. ? Estimated Creatinine Clearance: 23.7 mL/min (A) (based on SCr of 2.59 mg/dL (H)). ? Any applicable changes have been noted in italics. ? Crissy Broussard, PharmD November 13, 2017 12:53 PM ? Expand All Collapse All TRANSITION CARE MANAGEMENT (TCM) INITIAL CONTACT ? Provider Action/FYI: ? ? Able to complete medication review. Patient would like to keep current PCP appointment. ? ? Initial contact with patient post discharge, spoke to patient. Patient identified by name and . ? Summary: -Pt discharged from [facility] on 11/10/17. -Follow up appointment on 11/27/17. -Medication review done Yes. -Admitted for Angina ? ALLERGIES ALLERGIES Allergen Reactions - Atorvastatin Calcium Intolerance ? ? Joint pains ? - Covera-Hs [Verapami* Intolerance ? ? passed out - Lisinopril Cough - Niaspan [Niacin] Rash ? Legend: Stopped,?New,?Changed,?Added to list Medication List Medication Directions Comments Action/Plan allopurinol (ZYLOPRIM) 100 mg tablet Take 1 tablet by mouth once daily. For gout. ? ? Discontinued: 11/08/2017 4:09 PM ? Patient no longer takes Discontinued: 11/08/2017 4:09 PM ? ? ? aspirin, enteric coated (ASPIR-LOW) 81 mg EC tablet Take 1 tablet by mouth once daily. ? ? carvedilol (COREG) 25 mg tablet Take 25 mg by mouth twice daily with meals. ? ? clopidogrel (PLAVIX) 75 mg tablet Take 1 tablet by mouth once daily. 9274 ? ? clotrimazole-betamethasone (LOTRISONE) cream Apply 1 application to affected area twice daily. ? ? Discontinued: 11/10/2017 1:30 PM ? Duplicate diltiazem CD (CARDIZEM CD, CARTIA XT) 120 mg 24 hr capsule Take 1 capsule by mouth once daily. ? filled doxazosin (CARDURA) 4 mg tablet Take 1 tablet by mouth once daily. Patient taking differently: Take 4 mg by mouth daily at bedtime. ? ? ? ferrous sulfate (IRON, FERROUS SULFATE,) 325 mg (65 mg iron) tablet Take 45 mg by mouth daily with breakfast. ? ? furosemide (LASIX) 20 mg tablet Take 2 tablets by mouth once daily. ? ? hydrALAZINE (APRESOLINE) 50 mg tablet Take 50 mg by mouth twice daily. ? ? insulin glargine (LANTUS SOLOSTAR U-100 INSULIN) 100 unit/mL (3 mL) inpn Inject 14 Units subcutaneously once daily. ? ? Insulin [place], Disposable, (PEN NEEDLE) 29 gauge X 1/2 ndle Use one needle per dose. one per day ? ? isosorbide mononitrate ER (IMDUR) 60 mg 24 hr tablet Take 60 mg by mouth once daily. ? ? Discontinued: 11/08/2017 4:15 PM ? ? ? mirtazapine 15 mg tablet Take 1 tablet by mouth daily at bedtime. ? ? pantoprazole DR (PROTONIX) 40 mg tablet Take 1 tablet by mouth DAILY (6 AM). Patient taking differently: Take 40 mg by mouth twice daily. ? ? Patient said this dose works better for him Discontinued: 11/08/2017 4:17 PM ? ? Discontinued: 11/08/2017 4:18 PM ? ? sucralfate (CARAFATE) 1 gram tablet Take 1 tablet by mouth before meals and at bedtime. Patient taking differently: Take 1 g by mouth twice daily before meals (0600/1600). and at bedtime ? ? Patient only eats twice daily venlafaxine (EFFEXOR) 75 mg tablet Take 2 tablets by mouth once daily. ? ? ? Medication History: ? Patient Adherence: Good ? Source of History: Medication list ? The above information represents the best possible medication history: Yes ? Additional Comments: Reviewed medication list with patient. Patient has no questions or concerns at his time. Patients list is current and up to date. I will follow up with patient on 12/06/17. ? Time spent on patient: 30-45 minutes ? Yesica Vasquez Pharm-T November 13, 2017 11:03 AM ? ? Ramo Moreira III MD 11/27/2017 1:30 PM Signed SUBJECTIVE: This is a 72 year old male that is here today for Chronic Medical Conditions. 1. depression--better. Now able to exercise again. Denies depression or suicidal thoughts 2. rash not improving--on lat R thigh and lat r malleolus for 1 yr in spite of anti-fungal cream 3. episodic dizziness almost to the point of syncope--placed on imdur 60 mg daily in 2017. 4. ASHD--s/p PTCA and stent in Oct. No angina, but he noted pain from interscapular area to ant chest when he lies down--no such episodes since PTCA. Discharge medication list reviewed from 11/10/17. His EKG from 11/07/[address] abnormality with possible inferolateral subendocardial injury. Now he has no chest pain, no angina, no dyspnea on exertion. No claudication. 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 ([facility]) - BPH (benign prostatic hypertrophy) with urinary obstruction 07/09/2014 - CAD (coronary artery disease) - Chronic renal insufficiency - DVT of upper extremity (deep vein thrombosis) ([facility]) - Esophageal reflux - Essential hypertension, benign - Gout 04/22/2010 - Hx of CABG 3 - Iatrogenic pulmonary embolism and infarction ([facility]) - LV dysfunction - NSTEMI (non-ST elevated myocardial infarction) ([facility]) 2012 - Other and unspecified hyperlipidemia - Type 2 diabetes mellitus with stage 4 chronic kidney disease ([facility]) 06/05/2015 - Unequal leg length (acquired) Current Outpatient Prescriptions on File Prior to Visit: diltiazem CD (CARDIZEM CD, CARTIA XT) 120 mg 24 hr capsule Take 1 capsule by mouth once daily. pantoprazole DR (PROTONIX) 40 mg tablet Take 1 tablet by mouth DAILY (6 AM). (Patient taking differently: Take 40 mg by mouth twice daily. ) ferrous sulfate (IRON, FERROUS SULFATE,) 325 mg (65 mg iron) tablet Take 45 mg by mouth daily with breakfast. sucralfate (CARAFATE) 1 gram tablet Take 1 tablet by mouth before meals and at bedtime. (Patient taking differently: Take 1 g by mouth twice daily before meals (0600/1600). and at bedtime ) furosemide (LASIX) 20 mg tablet Take 2 tablets by mouth once daily. carvedilol (COREG) 25 mg tablet Take 25 mg by mouth twice daily with meals. hydrALAZINE (APRESOLINE) 50 mg tablet Take 50 mg by mouth twice daily. isosorbide mononitrate ER (IMDUR) 60 mg 24 hr tablet Take 60 mg by mouth once daily. allopurinol (ZYLOPRIM) 100 mg tablet Take 1 tablet by mouth once daily. For gout. venlafaxine (EFFEXOR) 75 mg tablet Take 2 tablets by mouth once daily. insulin glargine (LANTUS SOLOSTAR U-100 INSULIN) 100 unit/mL (3 mL) inpn Inject 14 Units subcutaneously once daily. doxazosin (CARDURA) 4 mg tablet Take 1 tablet by mouth once daily. (Patient taking differently: Take 4 mg by mouth daily at bedtime. ) Insulin [place], Disposable, (PEN NEEDLE) 29 gauge X 1/2 ndle Use one needle per dose. one per day aspirin, enteric coated (ASPIR-LOW) 81 mg EC tablet Take 1 tablet by mouth once daily. clopidogrel (PLAVIX) 75 mg tablet Take 1 tablet by mouth once daily. 9274 mirtazapine 15 mg tablet Take 1 tablet by mouth daily at bedtime. No current facility-administered medications on file prior to visit. FAMILY HISTORY Problem Relation Age of Onset - Stroke Mother - Stroke Father Social History Substance Use Topics - Smoking status: Former Smoker Packs/day: 3.00 Years: 3.00 Types: Cigarettes Quit date: 09/20/1971 - Smokeless tobacco: Never Used - Alcohol use No BP 119/68 Pulse 88 Resp 16 Wt 75.3 kg (166 lb) BMI 26.00 kg/m? . BP 159/80, pulse 83 supine BP 127/103, pulse 85 sitting BP 110/68, pulse 89 standing OBJECTIVE: APPEARANCE Well appearing, alert, in no acute distress, well- hydrated, well nourished. skin: several erythematous macules with peripheral scaling --one on lat R thigh, ant R thigh , and lat R ankle. NECK Supple, no adenopathy; thyroid symmetric, normal size, no bruits HEART RRR with normal S1 and S2, no murmurs, no gallops, no JVD appreciated LUNG clear to auscultation EXTREMITIES Extremities normal, No deformities, No skin discoloration, No edema and Normal pulses bilaterally. Appearance: well dressed well groomed, cooperative and pleasant Behavior: good eye contact Speech: fluent and coherent Mood: euthymic Affect: appropriate Perceptions: none Thought process: goal directed Thought Content: normal Intelligence level: normal Insight: good Judgment: good ASSESSMENT: orthostatic hypotension and near syncope ASHD, s/p PTCA--stable angina depression--improved rash-? etiology hypertension--at goal PLAN: healthy diet and regular exercise same medications for now I will discuss with Dr Sanford for possible reduction in isosorbide dose in order to reduce lightheadedness--after discussion with the office staff I will recommend reducing imdur 30mg daily refer to virtualization architect regarding resistant rash 30 min visit JENNY Pitts MD, III MD Frank A Cebul, III MD 11/27/2017 10:28 AM Signed PLAN: healthy diet and regular exercise same medications for now I will discuss possible reduction in isosorbide dose in order to reduce lightheadedness refer to virtualization architect regarding resistant rash Ramo Moreira III MD Referring Provider: RAMO MOREIRA III [[id number]] Allergies As of Date: 11/27/2017 Noted Allergy Reaction ATORVASTATIN CALCIUM 11/08/2017 5 - Intolerance Comments: Joint pains COVERA-HS (VERAPAMIL HCL) 01/27/2005 5 - Intolerance Comments: passed out LISINOPRIL 03/11/2006 3 - Cough NIASPAN (NIACIN) 04/28/2009 2 - Rash Date Reviewed: 11/27/2017 Reviewed by: Roseanne ([facility]) HANNAH Sarabia - Fully Assessed Reason for Visit: TCM [Other] Cmt: [facility]-chest pain Primary Visit Diagnosis:Atherosclerosis of tunica-biloxi coronary artery of tunica-biloxi heart with angina pectoris (HCC) [I25.119] Other Visit Diagnoses:Essential hypertension, benign [I10] Chronic depression [F32.9] Rash [R21] Orthostatic hypotension [I95.1] Order(s):CONSULT TO DERMATOLOGY [9006] Order #: [id number]: 1 isosorbide mononitrate ER (IMDUR) 60 mg 24 hr tabletTake 0.5 tablets by mouth once daily.Disp: Rfl: Prescriptions as of 11/27/2017 Sig: ISOSORBIDE MONONITRATE ER 60 * Take 0.5 tablets by mouth onc* DILTIAZEM SR 120 MG 24 HR CAP Take 1 capsule by mouth once * PANTOPRAZOLE 40 MG TABLET,DEL* Take 1 tablet by mouth DAILY * Patient taking differently: Take 40 mg by mouth twice gaudencio* FERROUS SULFATE 325 MG (65 MG* Take 45 mg by mouth daily wit* SUCRALFATE 1 GRAM TABLET Take 1 tablet by mouth before* Patient taking differently: Take 1 g by mouth twice daily* FUROSEMIDE 20 MG TABLET Take 2 tablets by mouth once * CARVEDILOL 25 MG TABLET Take 25 mg by mouth twice gaudencio* HYDRALAZINE 50 MG TABLET Take 50 mg by mouth twice gaudencio* ALLOPURINOL 100 MG TABLET Take 1 tablet by mouth once d* VENLAFAXINE 75 MG TABLET Take 2 tablets by mouth once * INSULIN GLARGINE (U-100) 100 * Inject 14 Units subcutaneousl* DOXAZOSIN 4 MG TABLET Take 1 tablet by mouth once d* Patient taking differently: Take 4 mg by mouth daily at b* PEN NEEDLE, DIABETIC 29 GAUGE* Use one needle per dose. 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] INVALID FOR*04/22/2010 UNEQUAL LEG LENGTH [M21.70] INVALID FOR* Hyposmolality and/or hyponatremia [E87.1] INVALID FOR*07/09/2014 Anemia, unspecified [D64.9] INVALID FOR*07/09/2014 Coronary atherosclerosis [I25.10] INVALID FOR* Contact dermatitis and other eczema, due to uns*INVALID FOR*07/09/2014 Embolism and thrombosis of unspecified site (HC*INVALID FOR*07/09/2014 PULM EMBOLISM/INFARCT IATROGENIC [T81.718A, I26* 07/09/2014 DVT-ARM [I82.629] 07/09/2014 Abscess of intestine [K63.0] INVALID FOR*07/09/2014 Gout [M10.9] INVALID FOR* Biceps tendon rupture [S46.219A] INVALID FOR*07/09/2014 Benign prostatic hyperplasia with urinary obstr*INVALID FOR* Chronic depression [F32.9] INVALID FOR* Hyperkalemia [E87.5] INVALID FOR*05/25/2017 Atherosclerosis of [place] coronary artery of na*INVALID FOR* Hyperlipidemia LDL goal <100 [E78.5] INVALID FOR* 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] INVALID FOR* Encounter for screening for malignant neoplasm *INVALID FOR*01/22/2015 Type 2 diabetes mellitus with stage 4 chronic k*INVALID FOR* Acute kidney failure, unspecified (HCC) [N17.9] INVALID FOR*09/18/2017 Exposure to Agent [place] [Z77.098] INVALID FOR* History of colostomy [FLI3367] INVALID FOR* History of gout [Z87.39] INVALID FOR* History of hypertension [Z86.79] INVALID FOR* History of pulmonary embolism [Z86.711] INVALID FOR* Peripheral vascular disease, unspecified (HCC) *INVALID FOR* NSTEMI (non-ST elevated myocardial infarction) *INVALID FOR*11/10/2017 S/P angioplasty with stent [Z95.9] INVALID FOR* Systolic heart failure (HCC) [I50.20] INVALID FOR* GERD (gastroesophageal reflux disease) [K21.9] INVALID FOR* History of coronary artery bypass surgery [Z95.*INVALID FOR* History of cardiac catheterization [Z98.890] INVALID FOR* Ischemic cardiomyopathy [I25.5] INVALID FOR* Heart disease [I51.9] INVALID FOR* Implantable cardioverter-defibrillator (ICD) in*INVALID FOR* Personal history of other endocrine, nutritiona*INVALID FOR* Other instructions from your clinician: PLAN: healthy diet and regular exercise same medications for now I will discuss possible reduction in isosorbide dose in order to reduce lightheadedness refer to virtualization architect regarding resistant rash Ramo Moreira III MD Prescriptions ordered this encounter Disp Refills Start End ISOSORBIDE MONONITRATE ER 60 MG TABL* 11/27/2017 Class: Med Update Route: ORAL Sig: Take 0.5 tablets by mouth once daily. Medications Discontinued During This Encounter clotrimazole-betamethasone (LOTRISON* 30 g 1 09/28/2016 11/27/2017 Route: TOPICAL Sig: Apply 1 application to affected area twice daily. Disc: Discontinued by Patient isosorbide mononitrate ER (IMDUR) 60* 11/27/2017 Class: Historical Med Route: ORAL Sig: Take 60 mg by mouth once daily. Disc: Reason for discontinue is not on file. Encounter Status:Closed by RAMO MOREIRA III, MD on 11/27/17 PROGRESS Observed: 11/24/2017 Status: COMPLETED Source: [place] 3:05 PM [facility] REPOSITORY O ID: [id number] Author: Ramo Moreira III Service: (none) Author Type: Physician Type: Progress Notes Filed: 11/24/2017 3:05 PM Note Text: There is improved diabetic control. We'll discuss with patient at upcoming appointment. Ramo Moreira III, MD, FAAFP CARDIOLOGY VISIT Observed: 11/23/2017 Status: F Source: [place] REPORT 3:11 PM [facility] REPOSITORY [facility] [address] [place] [address] OFFICE VISIT Date of Service: 11/23/17 MR#: [id number] Acct: [id number] Name: ANGIE DIXON Rep #: [id number] : 1945 Provider: Jayy Sanford MD Age/Sex: 72/M Location: [facility] Status: Signed HPI HPI Chief Complaint: CHEST PAIN Details: ANGIE DIXON, is a 72 M who presents to the office today for follow-up of his congestive heart failure exacerbation. The patient was admitted in August 2017 with CHF exacerbation. He underwent a repeat left heart catheterization and graft angiography by pa on 09/06/showed severe three-vessel coronary artery disease, calcified left main, patent left circumflex stents, occluded saphenous vein graft to the left circumflex, patent saphenous vein graft to the RCA with a patent stent in the middle portion of the graft, patent CHARLES to LAD, and moderate to severe global LV dysfunction with an EF around 30%. He was also found to be extremely hypertensive during the heart cath in the 180s. He was then transferred to [facility] where he underwent successful cutting balloon angioplasty and stenting of his left main receiving a 4.0X8 Promus Synergy stent by Dr. Morgan with an excellent result. He then underwent AICD placement with Dr. Renee at [facility] Patient blood pressure is much better controlled now with maximal medical therapy. He denies any chest pain, angina, shortness of breath or dyspnea on exertion. He denies any lower extremity edema. He is taking and tolerating his medicines well. Patient feels much better since his angioplasty and stenting, and is participating in cardiac rehab at [facility] on his own. In our office today's blood pressure is 144/60, pulse is 84 and regular. His physical exam is as below. His lipids as of 09/01/17 showed HDL 37 and LDL of 126. Lipids as of 11/08/17 showed HDL of 47 and LDL of 156. unfortunately is unable to tolerate any other statins except for Pravachol. EKG dated 09/04/17 showed sinus tachycardia with left bundle branch block and PVC. Repeat EKG today showed normal sinus rhythm at a rate of 68 bpm, normal axis, normal intervals, no evidence of previous myocardial infarction. Left bundle branch has resolved and appears to be rate dependent. 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 Is patient in pain?: No Allergies atorvastatin calcium [From Lipitor] Allergy (Verified 11/23/17 14:53) Pain in joints verapamil [From Covera-HS] Allergy (Verified 11/23/17 14:53) passes out lisinopril Adverse Reaction (Verified 11/23/17 14:53) Other Niacin Preparations Adverse Reaction (Verified 11/23/17 14:53) Pain in joints Cholesterol Meds Adverse Reaction (Uncoded 11/07/17 18:55) Other Medications Mirtazapine [Remeron] 15 mg PO QHS 12/02/13 [History Confirmed 11/23/17] Insulin Glargine,Hum.rec.anlog [Lantus] 14 unit SQ BREAKFAST 08/20/15 [History Confirmed 11/23/17] Clopidogrel Bisulfate [Plavix] 75 mg PO DAILY #0 12/04/15 [Rx Confirmed 11/23/17] Isosorbide Mononitrate [Imdur] 60 mg PO DAILY #30 tab 09/01/17 [Rx Confirmed 11/23/17] Carvedilol [Coreg (Beta Pedro)] 25 mg PO BID #90 tab 09/08/17 [Rx Confirmed 11/23/17] Aspirin E.C. [Ecotrin] 81 mg PO DAILY 11/07/17 [History Confirmed 11/23/17] Slow Release Iron 45 mg PO DAILY 11/07/17 [History Confirmed 11/23/17] Sucralfate [Carafate] 1 tab PO 4X/DAY 11/07/17 [History Confirmed 11/23/17] Venlafaxine HCl [Venlafaxine HCl ER] 150 mg PO DAILY 11/07/17 [History Confirmed 11/23/17] hydrALAZINE [Apresoline] 50 mg PO BID 11/07/17 [History Confirmed 11/23/17] allopurinol 100 mg tablet 100 mg PO DAILY tab 11/21/17 [History Confirmed 11/23/17] diltiazem CD 120 mg capsule,extended release 24 hr 120 mg PO DAILY 11/21/17 [History Confirmed 11/23/17] doxazosin 4 mg tablet 4 mg PO QHS tab 11/21/17 [History Confirmed 11/23/17] furosemide 40 mg tablet 40 mg PO DAILY 11/21/17 [History Confirmed 11/23/17] pantoprazole 40 mg tablet,delayed release 40 mg PO DAILY 11/21/17 [History Confirmed 11/23/17] FORMERLY [facility], 1928–1983 Medical History NSTEMI (non-ST elevated myocardial infarction) (Acute) CAD (coronary artery disease) (Chronic) Implantable cardioverter-defibrillator (ICD) in situ (Chronic) Ischemic cardiomyopathy (Chronic) Atherosclerotic heart disease of [place] coronary artery with other forms of angina pectoris (Chronic) DM2 (diabetes mellitus, type 2) (Chronic) CKD (chronic kidney disease), stage IV (Chronic) History of pulmonary embolism (Chronic) History of hypertension (Chronic) History of hyperlipidemia (Chronic) History of gout (Chronic) Agent orange exposure (Chronic) Surgical History Stented coronary artery (Chronic 11/08/17) History of right and left heart catheterization (Chronic 11/08/17) S/P PTCA (percutaneous transluminal coronary angioplasty) (Chronic) 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 Social History Smoking Status: Former smoker ROS Const Const: Positive for other (Cutting balloon angioplasty and ALBERTO to Left main per Dr. Morgan [facility]); negative for fatigue, weakness, body ache, fever(s), headache(s), chills, frequent falls, night sweats, daytime sleepiness, difficulty sleeping, excessive sweating, weight gain, weight loss, increased appetite, poor appetite or anorexia Eyes Eyes: Negative for blind spots, loss of peripheral vision, transient loss of vision, blurry vision, change in vision, double vision, floaters, tunnel vision or other ENT ENT: Negative for headache(s), dizziness, hearing loss, tinnitus, Nosebleed/epistaxis, balance problems, post nasal drip, lip swelling, tongue swelling, bleeding gums, hoarseness, neck pain, dry mouth or other Cardio Chest Pain: No Palpitations: No Edema: None Muscle aches with walking: None Resp Respiratory: Negative for SOB with activity, SOB at rest, SOB orthopnea\SOB lying down, Cough, Coughing up blood/hemoptysis, chest congestion, pain on inspiration, snoring, stridor, wheezing, crackles, paroxysmal nocturnal dyspnea or other GI GI: Negative nausea, vomiting, heartburn, constipation, belching, bloating, cramping, vomiting blood/hematemesis, bright, red blood in stools, black,tarry stools, loose stools, Difficulty Swallowing or other : Negative for hematuria, frequent nighttime urination/ nocturia, erectile dysfunction or abnormal vaginal bleeding Musc Musc: Negative for balance problems, muscle aches/ myalgia, muscle weakness or joint pain Skin Skin: Negative redness, non-healing lesions, rash, unusual bruising, skin ulcer, wounds, jaundice or other Neuro Neuro: Negative for weakness, headache(s), frequent falls, blurry vision, double vision, dizziness, lightheadedness, near syncope, syncope, orthostatic symptoms, confusion, memory loss, restless legs, vertigo, seizures, lack of coordination or other Gage Hematologic/Lymphatic: Negative for easy bleeding, easy bruising, enlarged lymph nodes or other Endo Endo: Negative for fatigue, excessive sweating, cold intolerance, heat intolerance, flushing, increased thirst/drinking, increased hunger, hair loss, hair growth or other Psych Psych: Negative for anxiety, depression, thoughts of harming anyone, thoughts of harming yourself, visual hallucinations, panic attacks or audible hallucinations Allergy Allergy/Immunology: Negative for lip swelling, Negative for tongue swelling, Negative for rash, Negative for throat swelling, Negative for hives Cardiology Exam Const Appearance: cooperative, healthy appearing and no acute distress Nutritional Appearance: well nourished Orientation: alert, oriented x3 and oriented to person Head Head: normal to inspection, atraumatic and normocephalic Nose: external nose normal Face and Sinus: face symmetric Mouth: oral mucosae normal Eyes General: appearance normal, both eyes and all related structures Eyelids: eyelids normal Conjunctivae: conjunctivae normal Pupils: PERRL and normal by confrontation EOM: EOM intact bilaterally Neck Neck: normal visual inspection and full ROM Carotids: normal carotid upstroke Chest Chest inspection: normal inspection of the chest Auscultation: Bilateral: Clear to Auscultation Cardio Palpation: normal PMI Rate: regular rate Rhythm: regular rhythm Heart sounds: S1 normal and S2 normal GI GI: normal to inspection, no hepatosplenomegaly and bowel sounds present Neuro General: alert, oriented x3, awake, CN's II-XI intact bilaterally and moves all extremities Skin Skin: no rashes or lesions noted Extremities Pulses: Normal: Right Femoral Pulse, Left Femoral Pulse, Right Dorsalis Pedis Pulse, Left Dorsalis Pedis Pulse, Right Posterior Tibial Pulse, Left Posterior Tibial Pulse, Right Radial Pulse, Left Radial Pulse Lower Extremity Edema: None: Bilateral Psych Psychological: normal affect Assessment AND Plan 1. CAD (coronary artery disease) I25.10 Plan 1. Coronary artery disease: Patient feels much better since his angioplasty and drug-eluting stent to the ostium of his LAD following cutting balloon by Dr. Morgan at [facility] on 11/08/17. He is taking and tolerating his medicines well. He is participating in exercise in cardiac rehab on his own at [facility]. I recommend lifelong baby aspirin and Plavix as well as Coreg, diltiazem, Lasix, hydralazine and Imdur. No additional testing needed at this time. 2. History of hyperlipidemia Z86.39 Plan 2. Hyperlipidemia: Unfortunately the patient is intolerant to all statins as well as niacin, and he is exercising as best he can. Continue therapeutic lifestyle changes. 3. Return office in 6 months. This note was generated using a voice recognition system and there may be incorrect words, spelling or punctuation that were not noted when reviewing the office note prior to saving. Plan Detail Follow Up +6M (Sanford) Coding Level of Care Code Off vis,est,level 3 Diagnoses CAD (coronary artery disease) I25.10 History of hyperlipidemia Z86.39 Coding Level of Care Code Off vis,est,level 3 Diagnoses CAD (coronary artery disease) I25.10 History of hyperlipidemia Z86.39 11/23/17 1371 <Electronically signed by Jayy Sanford MD> Date Jayy Sanford MD Cosigner Signature: Date (if applicable) CC: Ramo Moreira III, MD CBC-COMPLETE BLOOD CNT Collected: 11/23/2017 Status: F Source: [place] NO DIFF 2:05 PM [facility] REPOSITORY TYPE CODE TESTS RESULT OUT OF RANGE REFERENCE UNITS LAB L100.1000 4.4-11.0 K/mm3 Normal WBC 9.6 LAB L100.1200 4.6-6.2 M/mm3 Low RBC 3.25 LAB L100.1300 13.0-16.5 g/dl Low HGB 9.7 LAB L100.1400 40-54 % Low HCT 29.8 LAB L100.1500 80-94 fL Normal MCV 91.7 LAB L100.1600 27.0-32.0 pg Normal MCH 29.8 LAB L100.1700 32-36 g/gl Normal MCHC 32.6 LAB L100.1810 11.6-14.6 % Normal RDW CV 14.3 LAB L100.1820 35.1-43.9 fl High RDW SD 48.3 LAB L100.1900 150-450 K/mm3 Normal PLT 293 LAB L100.2000 6.2-12.0 fl Normal MPV 10.7 Performed By: #### L100.0500 #### [facility] [address] [place], [address] RENAL PROFILE Collected: 11/23/2017 Status: F Source: [place] 2:05 PM [facility] REPOSITORY TYPE CODE TESTS RESULT OUT OF RANGE REFERENCE UNITS LAB L501.0100 74-106 mg/dL Normal GLU 106 Result Comment: Fasting Glucose result from 100 to 125 mg/dL suggests IMPAIRED HOMEOSTASIS per A.D.A. criteria. Please note revised GLUCOSE reference range effective 2017. LAB L501.1000 7-18 mg/dL High BUN 71 LAB L501.1100 0.70-1.30 mg/dL High CREAT,SERUM 3.80 Result Comment: The validity of the calculated GFR AND GFRAA in patients over 70 years has not been determined. Clinical correlation is essential. LAB L501.1110 >60 mL/min Low EST GFR 17 Result Comment: Non- GFR Calc LAB L501.1115 >60 mL/min Low EST GFR - AA 20 Result Comment: GFR Calc LAB L501.1300 10-20 RATIO Normal BUN/CRE 18.7 LAB L501.1800 3.2-5.0 g/dL Normal ALB 3.4 LAB L501.2200 8.5-10.1 mg/dL CA Normal 8.8 LAB L501.2300 2.5-4.9 mg/dL Normal PHOS 4.5 LAB L501.5300 136-145 mmol/L Low NA 135 LAB L501.5600 3.5-5.1 mmol/L K Normal 4.1 LAB L501.5900 98-107 mmol/L CL Normal 104 LAB L501.6100 21.0-32.0 mmol/L Normal CO2 22.0 Performed By: #### L500.3600 #### [facility] [address] [place], [address] PTHIN Collected: 11/23/2017 Status: F Source: [place] 2:05 PM [facility] REPOSITORY TYPE CODE TESTS RESULT OUT OF RANGE REFERENCE UNITS LAB L509.1000 18.4-80.1 pg/mL High PTHIN 262.5 Performed By: #### L509.1000 #### [facility] [address] [place], [address] ALBUMIN/CREAT RATIO Collected: 11/23/2017 Status: F Source: [place] 1:53 PM [facility] [place] REPOSITORY TYPE CODE TESTS RESULT OUT OF REFERENCE UNITS RANGE LAB UCRR 20-300 mg/dL Creatinine,Ur 95.7 ine,Ran LAB UALBR 0.0-23.0 mg/L High Albumin Urine 893.3 Random LAB UALBCR 0-30 mg/g High Albumin/Creat 933 Ratio Result Comment: 30 to 300 mg/g indicates an increased risk for diabetic nephropathy. Greater than 300 mg/g is consistent with clinical nephropathy. (Am J Kidney Disease 1995, 25:107) Performed By: #### UACR #### [facility] [employer] [address], [place] [address] HEMOGLOBIN A1C Collected: 11/23/2017 Status: F Source: [place] 12:57 PM [facility] REPOSITORY TYPE CODE TESTS RESULT OUT OF REFERENCE UNITS RANGE LAB HGBA1C 4.3-5.6 % High Hemoglobin A1c 7.1 LAB HBA0 mg/dL Est. Average Glucose 157 Result Comment: eAG: (Estimated average glucose) is a calculated value from HgbA1c and is specialty sales representative of the average blood glucose level in the last 2-3 month period. Performed By: #### HBA1C #### [facility] [address], [place] [address] PACEMAKER CHECK Observed: 11/20/2017 Status: F Source: [place] 9:11 AM [facility] REPOSITORY [facility] [address] [place], [place] [address] Pacemaker Check Date of Service: 11/17/171114 MR#: [id number] Acct: [id number] Name: ANGIE DIXON Clarisse Rep #: [id number] : 1945 From: Nat Persaud Age/Sex: 72/M Location: [facility] Status: Signed Billing Codes ICD Device Billing: ICD Dev Prog Eval, Single 11/17/17 1117 <Electronically signed by Nat Persaud > Date Nat Persaud 11/20/17 0911<Electronically signed by Jayy Sanford MD> Cosignmemo Signature: Date (if applicable) Jayy Sanford MD CC: PROGRESS Observed: 11/14/2017 Status: COMPLETED Source: [place] 6:41 PM [facility] REPOSITORY HNO ID: [id number] Author: Ramo Moreira III Service: (none) Author Type: Physician Type: Progress Notes Filed: 11/15/2017 7:12 AM Note Text: Noted all--thanks for your work Ramo Moreira III, MD, [facility] Observed: 11/14/2017 Status: COMPLETED Source: [place] 12:00 AM [facility] REPOSITORY Patient Outreach (FAMPST) ANGIE DIXON ([id number]) 1945 M Date Time Provider Department 11/14/17 RAMO MOREIRA III During your visit today, we recorded the following information about you: Allergies As of Date: 11/14/2017 Noted Allergy Reaction ATORVASTATIN CALCIUM 11/08/2017 5 - Intolerance Comments: Joint pains COVERA-HS (VERAPAMIL HCL) 01/27/2005 5 - Intolerance Comments: passed out LISINOPRIL 03/11/2006 3 - Cough NIASPAN (NIACIN) 04/28/2009 2 - Rash Date Reviewed: 11/13/2017 Reviewed by: Yesica Vasquez Pharm-T - Fully Assessed Visit Diagnosis:Medication management [Z79.899] Order(s):ALBUMIN/CREAT RATIO RND UR [SQUACR] Order #: [id number] FUTURE HGB A1C [NNWDT9Q] Order #: [id number] FUTURE Prescriptions as of 11/14/2017 Sig: DILTIAZEM SR 120 MG 24 HR CAP Take 1 capsule by mouth once * PANTOPRAZOLE 40 MG TABLET,DEL* Take 1 tablet by mouth DAILY * Patient taking differently: Take 40 mg by mouth twice gaudencio* FERROUS SULFATE 325 MG (65 MG* Take 45 mg by mouth daily wit* SUCRALFATE 1 GRAM TABLET Take 1 tablet by mouth before* Patient taking differently: Take 1 g by mouth twice daily* FUROSEMIDE 20 MG TABLET Take 2 tablets by mouth once * Patient not taking: Reported on 12/11/2017 CARVEDILOL 25 MG TABLET Take 25 mg by mouth twice gaudencio* HYDRALAZINE 50 MG TABLET Take 50 mg by mouth twice gaudencio* X ISOSORBIDE MONONITRATE ER 60 * Take 60 mg by mouth once tyshawn* ALLOPURINOL 100 MG TABLET Take 1 tablet by mouth once d* VENLAFAXINE 75 MG TABLET Take 2 tablets by mouth once * INSULIN GLARGINE (U-100) 100 * Inject 14 Units subcutaneousl* DOXAZOSIN 4 MG TABLET Take 1 tablet by mouth once d* Patient taking differently: Take 4 mg by mouth daily at b* X CLOTRIMAZOLE-BETAMETHASONE 1 * Apply 1 application to affect* PEN NEEDLE, DIABETIC 29 GAUGE* Use one needle per dose. 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] INVALID FOR*04/22/2010 UNEQUAL LEG LENGTH [M21.70] INVALID FOR* Hyposmolality and/or hyponatremia [E87.1] INVALID FOR*07/09/2014 Anemia, unspecified [D64.9] INVALID FOR*07/09/2014 Coronary atherosclerosis [I25.10] INVALID FOR* Contact dermatitis and other eczema, due to uns*INVALID FOR*07/09/2014 Embolism and thrombosis of unspecified site (HC*INVALID FOR*07/09/2014 PULM EMBOLISM/INFARCT IATROGENIC [T81.718A, I26* 07/09/2014 DVT-ARM [I82.629] 07/09/2014 Abscess of intestine [K63.0] INVALID FOR*07/09/2014 Gout [M10.9] INVALID FOR* Biceps tendon rupture [S46.219A] INVALID FOR*07/09/2014 Benign prostatic hyperplasia with urinary obstr*INVALID FOR* Chronic depression [F32.9] INVALID FOR* Hyperkalemia [E87.5] INVALID FOR*05/25/2017 Atherosclerosis of [place]-biloxi coronary artery of na*INVALID FOR* Hyperlipidemia LDL goal <100 [E78.5] INVALID FOR* 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] INVALID FOR* Encounter for screening for malignant neoplasm *INVALID FOR*01/22/2015 Type 2 diabetes mellitus with stage 4 chronic k*INVALID FOR* Acute kidney failure, unspecified (HCC) [N17.9] INVALID FOR*09/18/2017 Exposure to Agent [place] [Z77.098] INVALID FOR* History of colostomy [CFA0778] INVALID FOR* History of gout [Z87.39] INVALID FOR* History of hypertension [Z86.79] INVALID FOR* History of pulmonary embolism [Z86.711] INVALID FOR* Peripheral vascular disease, unspecified (HCC) *INVALID FOR* NSTEMI (non-ST elevated myocardial infarction) *INVALID FOR*11/10/2017 S/P angioplasty with stent [Z95.9] INVALID FOR* Systolic heart failure (HCC) [I50.20] INVALID FOR* GERD (gastroesophageal reflux disease) [K21.9] INVALID FOR* Encounter Status:Closed by MediasmartUSER on 12/15/17 PROGRESS Observed: 11/13/2017 Status: COMPLETED Source: [place] 11:03 [facility] REPOSITORY [facility] ID: [id number] Author: Yesica Vasquez Pharm-T Service: (none) Author Type: (none) Type: Progress Notes Filed: 11/13/2017 1:03 PM Note Text: Attestation signed by Crissy Kingd at 11/13/2017 1:05 PM (Updated) Provider Action/FYI: Dr Moreira, ?Per reconcile dispense report and [facility] pharmacy, noted patient may be non-adherent with medications. Please review at NOV (11/27/17). May consider consult to clinical pharmacist if non-adherence identified. ?Also, patient has increased dose of protonix to BID. Estimated Creatinine Clearance: 23.7 mL/min (A) (based on SCr of 2.59 mg/dL (H)). Time spent on patient: 0-15 minutes Appointments for Next 60 Days Date Time Provider Location Dept Phone 11/27/2017 9:40 AM RAMO MOREIRA III [facility] [place] [phone] I reviewed the medication history and agree as documented. I have adjusted the medication list to accurately reflect any approved changes from the medication history. I have reviewed patient's medication list for correct doses, drug interactions, and any renal dose adjustments. Estimated Creatinine Clearance: 23.7 mL/min (A) (based on SCr of 2.59 mg/dL (H)). Any applicable changes have been noted in italics. Crissy Broussard, PharmD November 13, 2017 12:53 PM TRANSITION CARE MANAGEMENT (TCM) INITIAL CONTACT Provider Action/FYI: ? Able to complete medication review. Patient would like to keep current PCP appointment. Initial contact with patient post discharge, spoke to patient. Patient identified by name and . Summary: -Pt discharged from [facility] on 11/10/17. -Follow up appointment on 11/27/17. -Medication review done Yes. -Admitted for Angina ALLERGIES Allergen Reactions - Atorvastatin Calcium Intolerance Joint pains - Covera-Hs [Verapami* Intolerance passed out - Lisinopril Cough - Niaspan [Niacin] Rash Legend: Stopped, New, Changed, Added to list Medication List Medication Directions Comments Action/Plan allopurinol (ZYLOPRIM) 100 mg tablet Take 1 tablet by mouth once daily. For gout. Discontinued: 11/08/2017 4:09 PM Patient no longer takes Discontinued: 11/08/2017 4:09 PM aspirin, enteric coated (ASPIR-LOW) 81 mg EC tablet Take 1 tablet by mouth once daily. carvedilol (COREG) 25 mg tablet Take 25 mg by mouth twice daily with meals. clopidogrel (PLAVIX) 75 mg tablet Take 1 tablet by mouth once daily. 9274 clotrimazole-betamethasone (LOTRISONE) cream Apply 1 application to affected area twice daily. Discontinued: 11/10/2017 1:30 PM Duplicate diltiazem CD (CARDIZEM CD, CARTIA XT) 120 mg 24 hr capsule Take 1 capsule by mouth once daily. filled doxazosin (CARDURA) 4 mg tablet Take 1 tablet by mouth once daily. Patient taking differently: Take 4 mg by mouth daily at bedtime. ferrous sulfate (IRON, FERROUS SULFATE,) 325 mg (65 mg iron) tablet Take 45 mg by mouth daily with breakfast. furosemide (LASIX) 20 mg tablet Take 2 tablets by mouth once daily. hydrALAZINE (APRESOLINE) 50 mg tablet Take 50 mg by mouth twice daily. insulin glargine (LANTUS SOLOSTAR U-100 INSULIN) 100 unit/mL (3 mL) inpn Inject 14 Units subcutaneously once daily. Insulin [place], Disposable, (PEN NEEDLE) 29 gauge X 1/2 ndle Use one needle per dose. one per day isosorbide mononitrate ER (IMDUR) 60 mg 24 hr tablet Take 60 mg by mouth once daily. Discontinued: 11/08/2017 4:15 PM mirtazapine 15 mg tablet Take 1 tablet by mouth daily at bedtime. pantoprazole DR (PROTONIX) 40 mg tablet Take 1 tablet by mouth DAILY (6 AM). Patient taking differently: Take 40 mg by mouth twice daily. Patient said this dose works better for him Discontinued: 11/08/2017 4:17 PM Discontinued: 11/08/2017 4:18 PM sucralfate (CARAFATE) 1 gram tablet Take 1 tablet by mouth before meals and at bedtime. Patient taking differently: Take 1 g by mouth twice daily before meals (0600/1600). and at bedtime Patient only eats twice daily venlafaxine (EFFEXOR) 75 mg tablet Take 2 tablets by mouth once daily. Medication History: ? Patient Adherence: Good ? Source of History: Medication list ? The above information represents the best possible medication history: Yes Additional Comments: Reviewed medication list with patient. Patient has no questions or concerns at his time. Patients list is current and up to date. I will follow up with patient on 12/06/17. Time spent on patient: 30-45 minutes Yesica Vasquez Pharm-T November 13, 2017 11:03 AM RITAJES Observed: 11/13/2017 Status: COMPLETED Source: [facility] 12:00 AM [facility] REPOSITORY Patient Outreach (PHRXRF) ANGIE DIXON ([id number]) 1945 M Date Time Provider Department 11/13/17 RAMO MOREIRA III [facility] During your visit today, we recorded the following information about you: Yesicajudith Vasquez Pharm-T 11/13/2017 11:09 AM Attested Attestation signed by Crissy Broussard Pharmd at 11/13/2017 1:05 PM (Updated) Provider Action/FYI: Dr Moreira, ?Per reconcile dispense report and [facility] pharmacy, noted patient may be non-adherent with medications. Please review at NOV (11/27/17). May consider consult to clinical pharmacist if non-adherence identified. ?Also, patient has increased dose of protonix to BID. Estimated Creatinine Clearance: 23.7 mL/min (A) (based on SCr of 2.59 mg/dL (H)). Time spent on patient: 0-15 minutes Appointments for Next 60 Days Date Time Provider Location Dept Phone 11/27/2017 9:40 AM RAMO MOREIRA III [facility] [place] [phone] I reviewed the medication history and agree as documented. I have adjusted the medication list to accurately reflect any approved changes from the medication history. I have reviewed patient's medication list for correct doses, drug interactions, and any renal dose adjustments. Estimated Creatinine Clearance: 23.7 mL/min (A) (based on SCr of 2.59 mg/dL (H)). Any applicable changes have been noted in italics. Crissy Broussard, PharmD November 13, 2017 12:53 PM TRANSITION CARE MANAGEMENT (TCM) INITIAL CONTACT Provider Action/FYI: ? Able to complete medication review. Patient would like to keep current PCP appointment. Initial contact with patient post discharge, spoke to patient. Patient identified by name and . Summary: -Pt discharged from [facility] on 11/10/17. -Follow up appointment on 11/27/17. -Medication review done Yes. -Admitted for Angina ALLERGIES Allergen Reactions - Atorvastatin Calcium Intolerance Joint pains - Covera-Hs [Verapami* Intolerance passed out - Lisinopril Cough - Niaspan [Niacin] Rash Legend: Stopped, New, Changed, Added to list Medication List Medication Directions Comments Action/Plan allopurinol (ZYLOPRIM) 100 mg tablet Take 1 tablet by mouth once daily. For gout. Discontinued: 11/08/2017 4:09 PM Patient no longer takes Discontinued: 11/08/2017 4:09 PM aspirin, enteric coated (ASPIR-LOW) 81 mg EC tablet Take 1 tablet by mouth once daily. carvedilol (COREG) 25 mg tablet Take 25 mg by mouth twice daily with meals. clopidogrel (PLAVIX) 75 mg tablet Take 1 tablet by mouth once daily. 9274 clotrimazole-betamethasone (LOTRISONE) cream Apply 1 application to affected area twice daily. Discontinued: 11/10/2017 1:30 PM Duplicate diltiazem CD (CARDIZEM CD, CARTIA XT) 120 mg 24 hr capsule Take 1 capsule by mouth once daily. filled doxazosin (CARDURA) 4 mg tablet Take 1 tablet by mouth once daily. Patient taking differently: Take 4 mg by mouth daily at bedtime. ferrous sulfate (IRON, FERROUS SULFATE,) 325 mg (65 mg iron) tablet Take 45 mg by mouth daily with breakfast. furosemide (LASIX) 20 mg tablet Take 2 tablets by mouth once daily. hydrALAZINE (APRESOLINE) 50 mg tablet Take 50 mg by mouth twice daily. insulin glargine (LANTUS SOLOSTAR U-100 INSULIN) 100 unit/mL (3 mL) inpn Inject 14 Units subcutaneously once daily. Insulin [place], Disposable, (PEN NEEDLE) 29 gauge X 1/2 ndle Use one needle per dose. one per day isosorbide mononitrate ER (IMDUR) 60 mg 24 hr tablet Take 60 mg by mouth once daily. Discontinued: 11/08/2017 4:15 PM mirtazapine 15 mg tablet Take 1 tablet by mouth daily at bedtime. pantoprazole DR (PROTONIX) 40 mg tablet Take 1 tablet by mouth DAILY (6 AM). Patient taking differently: Take 40 mg by mouth twice daily. Patient said this dose works better for him Discontinued: 11/08/2017 4:17 PM Discontinued: 11/08/2017 4:18 PM sucralfate (CARAFATE) 1 gram tablet Take 1 tablet by mouth before meals and at bedtime. Patient taking differently: Take 1 g by mouth twice daily before meals (0600/1600). and at bedtime Patient only eats twice daily venlafaxine (EFFEXOR) 75 mg tablet Take 2 tablets by mouth once daily. Medication History: ? Patient Adherence: Good ? Source of History: Medication list ? The above information represents the best possible medication history: Yes Additional Comments: Reviewed medication list with patient. Patient has no questions or concerns at his time. Patients list is current and up to date. I will follow up with patient on 12/06/17. Time spent on patient: 30-45 minutes Yesica Vasquez Pharm-T November 13, 2017 11:03 AM Removed attestation signed by Crissy Kingd at 11/13/2017 1:04 PM (removed by Crissy Broussard Pharmd at 11/13/2017 1:05 PM) Provider Action/FYI: Dr Moreira, ?Per reconcile dispense report and [facility] pharmacy, noted possible adherence concerns. Please review at NOV (11/27/17). May consider consult to clinical pharmacist if non-adherence identified. ?Also, patient has increased dose of protonix to BID. Estimated Creatinine Clearance: 23.7 mL/min (A) (based on SCr of 2.59 mg/dL (H)). Time spent on patient: 0-15 minutes Appointments for Next 60 Days Date Time Provider Location Dept Phone 11/27/2017 9:40 AM RAMO MOREIRA III [facility] [phone] I reviewed the medication history and agree as documented. I have adjusted the medication list to accurately reflect any approved changes from the medication history. I have reviewed patient's medication list for correct doses, drug interactions, and any renal dose adjustments. Estimated Creatinine Clearance: 23.7 mL/min (A) (based on SCr of 2.59 mg/dL (H)). Any applicable changes have been noted in italics. Crissy Broussard PharmD November 13, 2017 12:53 PM Removed attestation signed by Crissy Broussard Pharmd at 11/13/2017 1:03 PM (removed by Crissy Broussard Pharmd at 11/13/2017 1:04 PM) Provider Action/FYI: Dr Moreira, ?Per reconcile dispense report and [facility] pharmacy, noted possible adherence concerns. Please review at NOV (11/27/17). May consider consult to clinical pharmacist if non-adherence identified. ?Also, patient has increased dose of protonix to BID. Estimated Creatinine Clearance: 23.7 mL/min (A) (based on SCr of 2.59 mg/dL (H)). Time spent on patient: 0-15 minutes Appointments for Next 60 Days Date Time Provider Location Dept Phone 11/27/2017 9:40 AM RAMO MOREIRA III [facility] [phone] I reviewed the medication history and agree as documented. I have adjusted the medication list to accurately reflect any approved changes from the medication history. I have reviewed patient's medication list for correct doses, drug interactions, and any renal dose adjustments. Estimated Creatinine Clearance: 23.7 mL/min (A) (based on SCr of 2.59 mg/dL (H)). Any applicable changes have been noted in italics. Crissy Broussard, PharmD November 13, 2017 12:53 PM Ramo Moreira III MD 11/15/2017 7:12 AM Signed Noted all--thanks for your work Ramo Moreira III, MD, FAAFP Allergies As of Date: 11/13/2017 Noted Allergy Reaction ATORVASTATIN CALCIUM 11/08/2017 5 - Intolerance Comments: Joint pains COVERA-HS (VERAPAMIL HCL) 01/27/2005 5 - Intolerance Comments: passed out LISINOPRIL 03/11/2006 3 - Cough NIASPAN (NIACIN) 04/28/2009 2 - Rash Date Reviewed: 11/13/2017 Reviewed by: Yesica Vasquez Pharm-T - Fully Assessed Reason for Visit: Transition Of Care [4074] Cmt: Pharmacy - Hospital Discharge 11/10/17 Reason For Visit History Recorded Prescriptions as of 11/13/2017 Sig: DILTIAZEM SR 120 MG 24 HR CAP Take 1 capsule by mouth once * PANTOPRAZOLE 40 MG TABLET,DEL* Take 1 tablet by mouth DAILY * Patient taking differently: Take 40 mg by mouth twice gaudencio* FERROUS SULFATE 325 MG (65 MG* Take 45 mg by mouth daily wit* SUCRALFATE 1 GRAM TABLET Take 1 tablet by mouth before* Patient taking differently: Take 1 g by mouth twice daily* FUROSEMIDE 20 MG TABLET Take 2 tablets by mouth once * CARVEDILOL 25 MG TABLET Take 25 mg by mouth twice gaudencio* HYDRALAZINE 50 MG TABLET Take 50 mg by mouth twice gaudencio* ISOSORBIDE MONONITRATE ER 60 * Take 60 mg by mouth once tyshawn* ALLOPURINOL 100 MG TABLET Take 1 tablet by mouth once d* VENLAFAXINE 75 MG TABLET Take 2 tablets by mouth once * INSULIN GLARGINE (U-100) 100 * Inject 14 Units subcutaneousl* DOXAZOSIN 4 MG TABLET Take 1 tablet by mouth once d* Patient taking differently: Take 4 mg by mouth daily at b* CLOTRIMAZOLE-BETAMETHASONE 1 * Apply 1 application to affect* PEN NEEDLE, DIABETIC 29 GAUGE* Use one needle per dose. 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] INVALID FOR*04/22/2010 UNEQUAL LEG LENGTH [M21.70] INVALID FOR* Hyposmolality and/or hyponatremia [E87.1] INVALID FOR*07/09/2014 Anemia, unspecified [D64.9] INVALID FOR*07/09/2014 Coronary atherosclerosis [I25.10] INVALID FOR* Contact dermatitis and other eczema, due to uns*INVALID FOR*07/09/2014 Embolism and thrombosis of unspecified site (HC*INVALID FOR*07/09/2014 PULM EMBOLISM/INFARCT IATROGENIC [T81.718A, I26* 07/09/2014 DVT-ARM [I82.629] 07/09/2014 Abscess of intestine [K63.0] INVALID FOR*07/09/2014 Gout [M10.9] INVALID FOR* Biceps tendon rupture [S46.219A] INVALID FOR*07/09/2014 Benign prostatic hyperplasia with urinary obstr*INVALID FOR* Chronic depression [F32.9] INVALID FOR* Hyperkalemia [E87.5] INVALID FOR*05/25/2017 Atherosclerosis of [place] coronary artery of na*INVALID FOR* Hyperlipidemia LDL goal <100 [E78.5] INVALID FOR* 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] INVALID FOR* Encounter for screening for malignant neoplasm *INVALID FOR*01/22/2015 Type 2 diabetes mellitus with stage 4 chronic k*INVALID FOR* Acute kidney failure, unspecified (HCC) [N17.9] INVALID FOR*09/18/2017 Exposure to Agent [place] [Z77.098] INVALID FOR* History of colostomy [XAY2705] INVALID FOR* History of gout [Z87.39] INVALID FOR* History of hypertension [Z86.79] INVALID FOR* History of pulmonary embolism [Z86.711] INVALID FOR* Peripheral vascular disease, unspecified (HCC) *INVALID FOR* NSTEMI (non-ST elevated myocardial infarction) *INVALID FOR*11/10/2017 S/P angioplasty with stent [Z95.9] INVALID FOR* Systolic heart failure (HCC) [I50.20] INVALID FOR* GERD (gastroesophageal reflux disease) [K21.9] INVALID FOR* Encounter Status:Closed by PROSPER (PHARMACIST)CRISSY on 11/15/17 NUTRITION Observed: 11/10/2017 Status: COMPLETED Source: [facility] 3:10 PM CLINIC OTHER CAMPUS REPOSITORY O ID: [id number] Author: Mari Mcnair Service: Nutrition Therapy Author Type: Registered Dietitian Type: Nutrition Filed: 11/10/2017 3:26 PM Note Text: NUTRITION THERAPY PATIENT EDUCATION SERVICE DATE: 11/10/2017 SERVICE TIME: 10:35 TOPIC: Cardiac Rehab: Therapeutic Lifestyle Changes (TLC) Diagnosis: ADULT: Heart Failure, s/p cath + stent READINESS TO LEARN Cognitive Ability: Alert and oriented Motivation to Learn: Interested Family Support: Unable to assess - Family not present Instruction Provided to: Patient Patient Learns Best by: Multiple Methods Factors Affecting Learning: None Physical Limitations Affecting Learning: None LEARNING RESPONSE Patient / Family Response: Verbalizes understanding of Heart Healthy (CTS) Diet: Consuming 30% or less calories from fat, of which no more than 7% are saturated fat calories; no more than 200 mg cholesterol/day; and 2 grams of sodium Method of Instruction: Individual instruction Written instruction - handouts Verbal instruction Instructional Aids Used: Coronary Heart Disease Nutrition Therapy Supplemental Material Provided to Patient: None Follow-Up Plan: Recommend continued instruction and follow up as directed Referral (Recommendation): Primary Care Provider MNT Billing: Initial Assess/15 min 2 units SIGNATURE: Mari Mcnair RD PATIENT NAME: Angie Dixon DATE: November 10, 2017 TIME: 3:24 PM PAGER: [phone] [id number] LEAD ELECTROCARDIOGRAM Observed: 11/10/2017 Status: F Source: [place] 3:00 PM [facility] REPOSITORY [facility] Cardiovascular Services [address] [place] [address] 12 Lead EKG 11/08/17 0515 MR#: [id number] Acct: [id number] Name: ANGIE DIXON Rep #: [id number] : 1945 72 From: Woo Mills MD Attending Dr: Ross Ackerman MD Status: DIS IN Ordering Dr: Carmen Hogan Date: 11/08/17 Location: ICU Sex: M C Admitted: 11/07/17 Test Reason : AM EKG Blood Pressure : / mmHG Vent. Rate : 087 BPM Atrial Rate : 087 BPM P-R Int : 190 ms QRS Dur : 102 ms QT Int : 398 ms P-R-T Axes : 054 063 270 degrees QTc Int : 478 ms Normal sinus rhythm ST AND T wave abnormality, consider inferolateral ischemia Prolonged QT Abnormal ECG When compared with ECG of 07-NOV-2017 18:53, MANUAL COMPARISON REQUIRED, DATA IS UNCONFIRMED Confirmed by WOO MILLS MD ([id number]), editorial intern TEA BATISTA ([id number]) on 11/10/2017 2:59:41 PM Referred By: BARBARA Confirmed By:WOO MILLS MD 11/10/17 1459 Date Woo Mills MD CC: Carmen Hogan; Ross Ackerman MD; Ramo Moreira III, MD Signed 12 LEAD ELECTROCARDIOGRAM Observed: 11/10/2017 Status: F Source: [place] 2:19 PM [facility] REPOSITORY [facility] Cardiovascular Services [address] [place] [address] 12 Lead EKG 11/07/17 1853 MR#: [id number] Acct: [id number] Name: ANGIE DIXON Rep #: [id number] : 1945 72 From: Pablo Khan MD Attending Dr: Ross Ackerman MD Status: DIS IN Ordering Dr: Tarun Barajas MD Date: 11/07/17 Location: ICU Sex: M Lila Admitted: 11/07/17 Test Reason : CP Blood Pressure : / mmHG Vent. Rate : 107 BPM Atrial Rate : 107 BPM P-R Int : 168 ms QRS Dur : 104 ms QT Int : 370 ms P-R-T Axes : 060 046 -79 degrees QTc Int : 493 ms Sinus tachycardia Marked ST abnormality, possible inferior-lateral subendocardial injury Abnormal ECG Confirmed by ERIN CABRERA, PABLO ([id number]), editorial intern TEA BATISTA ([id number]) on 11/10/2017 2:19:17 PM Referred By: FELA Confirmed By:PABLO KHAN MD 11/10/17 1419 Date Pablo Khan MD CC: Ross Ackerman MD; Raom Moreira III, MD; Tarun Barajas MD Signed CNDS Observed: 11/10/2017 Status: COMPLETED Source: [facility] 1:30 PM CLINIC OTHER CAMPUS REPOSITORY O ID: [id number] Author: Zaheer Calvo (Pa) Service: Cardiovascular Surgery Author Type: Physician Correctional Program Officer Type: Discharge Summaries Filed: 11/10/2017 1:46 PM Note Text: Attestation signed by Ross Morgan at 11/13/2017 7:16 AM Attending Note: [place] findings confirmed. Patient examined. Discussed with the nurse practitioner and the patient. Plan as outlined. Ross Morgan MD DISCHARGE SUMMARY PATIENT NAME: Angie Dixon Code Status: Not on file Highest Readmission Risk Score: 20 The 30 day readmissions risk score is derived from an internally validated risk model which evaluates patient level characteristics, utilization history, medication orders and lab results up until the day of discharge. Patients with a score of 40 or above are considered highest risk for readmission. Specific patient level drivers will be listed at the bottom of the summary. Admission Information Admission Information ADMIT DATE: 11/08/2017 DISCHARGE DATE: 11/10/2017 MY DOCTORS AND MEDICAL TEAM: My Main Hospital Doctor: Ross Morgan Primary Care Provider: Ramo Moreira III MD My Medical Team Members: Treatment Team: Attending Provider: Ross Morgan MY CONDITION AT DISCHARGE: Stable REASON I WAS IN THE HOSPITAL: Angina SUMMARY OF WHAT HAPPENED WHILE I WAS IN THE HOSPITAL: Pt underwent a right and left heart catheterization after having mildly elevated troponin and ST changes on EKG. Study demonstrated severe ostial to mid Left Main CAD treated with cutting balloon angioplasty and drug eluting stent placement. It was felt that as though patient's pain is also related to under treated GERD. Patient was placed on a trial of Protonix. Pt is to follow-up with his spice miller, Dr. Sanford, in 2 weeks and his primary care doctor, Dr. Moreira, in 5-7 weeks. OTHER PROBLEMS/DIAGNOSIS: Active Problems: S/P angioplasty with stent Systolic heart failure (HCC) GERD (gastroesophageal reflux disease) Resolved Problems: NSTEMI (non-ST elevated myocardial infarction) ([facility]) OPERATIONS PERFORMED WHILE IN THE HOSPITAL: Right and left heart catheterization s/p angioplasty and Drug Eluting Stent placement Discharge Disposition Discharge Disposition: Home With Self Care Activity When You Leave the Hospital No driving for 1 week No lifting greater than 10 pounds for 1 week or greater than 30 pounds for 2 weeks. No sexual activity for 1 week Take showers, not baths, for 1 week. Walk 10 minutes three times per day. Advance as tolerated per cardiac rehab program. Diet Instructions Heart Healthy Wound/Surgical Site Care Any bruising and bumps should disappear within 3-4 days Avoid lotions or powders Check your wound every day If the bruising expands or the bump enlarges please call your doctor Some bruising, soreness or a small bump under the skin at the inserion site is normal Wash your wound area with mild soap and water daily and gently pat dry with a towel Call Your Doctor If There is severe pain at the operative site You have lightheadedness, fainting, or confusion You have persistent or heavy bleeding You have redness, swelling, pus or drainage from the wound Your temperature is greater than 101F Follow Up Appointments Follow-Up Appointment When: In 2 weeks Patient/Parents to call for appointment?: Yes Ross Sanford (Fel) [phone] [address] [facility] [address] PCP Requested Referral Follow-Up Appointment When: In 4 weeks Ramo Moreira III [phone] [address] [facility] [address] PCP Requested Referral FOLLOW-UP APPOINTMENTS ALREADY SCHEDULED WITH A [facility] PROVIDER: Future Appointments Date Time Provider Department Center 11/27/2017 9:40 AM Ramo Lama Cebul III [facility] ALLERGIES Allergen Reactions - Atorvastatin Calcium Intolerance Joint pains - Covera-Hs [Verapami* Intolerance passed out - Lisinopril Cough - Niaspan [Niacin] Rash DISCHARGE MEDICATION: Current Discharge Medication List START taking these medications diltiazem CD (CARDIZEM CD, CARTIA XT) 120 mg Take 120 mg by mouth once daily. pantoprazole DR (PROTONIX) 40 mg Take 40 mg by mouth DAILY (6 AM). Qty: 30 tablet Refills: 0 CONTINUE these medications which have NOT CHANGED ferrous sulfate 45 mg Take 45 mg by mouth daily with breakfast. sucralfate (CARAFATE) 1 g Take 1 g by mouth before meals and at bedtime. Qty: 60 tablet Refills: 2 furosemide (LASIX) 40 mg Take 40 mg by mouth once daily. Qty: 180 tablet Refills: 3 carvedilol (COREG) 25 mg Take 25 mg by mouth twice daily with meals. hydrALAZINE (APRESOLINE) 50 mg Take 50 mg by mouth twice daily. isosorbide mononitrate ER (IMDUR) 60 mg Take 60 mg by mouth once daily. allopurinol (ZYLOPRIM) 100 mg Take 100 mg by mouth once daily. For gout. Qty: 180 tablet Refills: 3 venlafaxine (EFFEXOR) 150 mg Take 150 mg by mouth once daily. Qty: 180 tablet Refills: 3 insulin glargine (LANTUS SOLOSTAR, BASAGLAR KWIKPEN) 14 Units Inject 14 Units subcutaneously once daily. Associated Diagnoses:Diabetic nephropathy associated with type 2 diabetes mellitus (HCC) doxazosin (CARDURA) 4 mg Take 4 mg by mouth once daily. Qty: 90 tablet Refills: 3 Associated Diagnoses:Essential hypertension, benign clotrimazole-betamethasone (LOTRISONE) 1 application Apply 1 application to affected area twice daily. Qty: 30 g Refills: 1 Associated Diagnoses:Tinea corporis Insulin [place], Disposable, (PEN NEEDLE) 29 gauge X 1/2 ndle Use one needle per dose. one per day Qty: 100 Each Refills: 3 Associated Diagnoses:Diabetic nephropathy associated with type 2 diabetes mellitus (HCC) aspirin, enteric coated (ASPIRIN, ENTERIC COATED) 81 mg Take 81 mg by mouth once daily. Refills: 0 clopidogrel (PLAVIX) 75 mg Take 75 mg by mouth once daily. 9274 Qty: 90 tablet Refills: 3 mirtazapine (REMERON) 15 mg Take 15 mg by mouth daily at bedtime. Refills: 0 STOP taking these medications diltiazem (CARDIZEM) 120 mg Comments: Reason for Stopping: Discharge Physical Exam: VITAL SIGNS: BP 155/81 Pulse 83 Temp 36 ?C (96.8 ?F) Resp 19 Ht 170.2 cm (5' 7) Wt 77.1 kg (170 lb) SpO2 98% BMI 26.63 kg/m? GENERAL: Alert, no distress, cooperative SKIN: Right groin incision site C/D/I with minimal ecchymosis. Bruit present. HEAD: No significant findings, NCAT NECK: No jugulovenous distention, Supple LUNGS: Lungs clear to auscultation, Good diaphragmatic excursion CARDIAC: Normal S1 and S2; no rubs, murmurs, or gallops ABDOMEN: Abdomen soft, non-tender, BS normal, No masses or organomegaly and ostomy in place. EXTREMITIES: Extremities normal, no deformities, edema, clubbing or skin discoloration. Good capillary refill. NEURO: NFD The patient's risk for 30-day readmission is determined using the following contributing factors: Pt variables contributing to increased readmission risk: 36 Most Recent BUN Result 22 Active Medication Orders 8.2 First Resulted Calcium During Admission 1 Insurance - Medicare 1 Discharge Disposition - Home 1 History of Anemia TIME OF CARE: Discharge Management: I personally spent greater than 30 minutes involved in the discharge management of this patient. SIGNATURE: Zaheer Calvo PA-C PAGER/CONTACT #: [id number] DATE: November 10, 2017 TIME: 1:30 PM GLUCOSE METER Collected: 11/10/2017 Status: F Source: [facility] 11:36 AM HEALTH SYSTEM REPOSITORY TYPE CODE TESTS RESULT OUT OF REFERENCE UNITS RANGE LAB GLUBL(LOINC 70-99 mg/dL ) High Glucose Meter 180 Result Comment: RN NOTIFIED Performed By: #### GLMET #### [place] [address] CASE MGT INIT Observed: 11/10/2017 Status: COMPLETED Source: [facility] 9:48 AM CLINIC OTHER CAMPUS REPOSITORY HNO ID: [id number] Author: Diane (Rn) LEE Otero Service: (none) Author Type: Registered Nurse Type: Care Mgt Initial Assessment Filed: 11/10/2017 9:50 AM Note Text: CARE MANAGEMENT: ASSESSMENT AND DISCHARGE PLAN SERVICE DATE: 11/10/2017 SERVICE TIME: 9:48 AM PRIMARY CARE PHYSICIAN: Ramo Moreira III MD ADMISSION STATUS: Inpatient Needs Prior to Discharge: To Be Determined MEDICAL: Patient/Biological Science Aide Stated Goals: To have reduction in pain To have reduction in symptoms To improve my functional status To return home to life as it was Health Insurance: [employer] MEDICARE PPO None Health Issues Impacting Discharge Plan: None Last Admission Date: none Is this Within the Past 30 days? No Advance Directive: Current Advance Directive: Health Care Power of Life Science Technician;Living Will In Chart: No Process Project Engineer Attempted to Assist with AD Completion: No Unable to Assist Due To:: Other: See Comment (paperwork at home) Health Literacy: 1. How often do you need to have someone help you when you read instructions, pamphlets, or other written material from your doctor or pharmacy? Never - 1 2. How confident are you filling out medical forms by yourself? Extremely - 1 If Patient scores > 3 on either question, the following interventions were put into place: Patient did not score > 3 FUNCTIONAL AND COGNITIVE/BEHAVIORAL PRIOR TO ADMISSION: Baseline Mental Status: Alert AND Oriented, Person, Place , Time and Situation Functional Status: Independent Does Patient Currently Receive Any Community Services or Home Care? None Equipment Prior to Admission: None Has the Patient Been in a Assisted Facility in the Past 30 days? No SOCIAL: Living Arrangement: Home Lives With: Spouse Financial Resources: Retired Primary Contact: Extended Emergency Contact Information Primary Emergency Contact: Merle Dixon Address: [address] [place] [address] Relation: Spouse Supportive: Yes Other Important Patient Contacts: None Caregiver Assessment: Caregiver is ready, willing and able to meet the patient's needs as recommended by the inter-professional team? Yes Patient's transition needs and plan for meeting these needs: tbd Does the patient have an acute stroke diagnosis, or has the patient had a stroke during this admission? No Medication Adherence: I am convinced of the importance of my prescription medication: Agree completely - 0 I worry that my prescription medication will do more harm than good to me Disagree completely - 0 I feel financially burdened by my ifz-hx-fivyqj expenses for my prescription medication: Disagree completely - 0 Patient is categorized as low risk < 2 Are you interested in bedside delivery of your medications? No Food Concerns: In the Last Month, Have You had Trouble Getting Food? No trouble getting food During the Last Month, Have You Worried Whether Your Food Would Run Out Before You Had Enough Money to Buy More? No Is the Patient Psychosocially Complex? 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 [facility] Plan is to return home at disch. SIGNATURE: Diane Otero RN PATIENT NAME: Angie Dixon DATE: November 10, 2017 TIME: 9:48 AM PAGER/CONTACT #: [phone] ALLIED HEALTH Observed: 11/10/2017 Status: COMPLETED Source: [facility] 8:39 AM CLINIC OTHER CAMPUS REPOSITORY HNO ID: [id number] Author: Pablo SalasBeater Operator) LOGAN Allison Service: Cardiac Rehab Author Type: Registered Resp Therapist Type: Allied Health Filed: 11/10/2017 8:43 AM Note Text: CARDIAC REHABILITATION PATIENT EDUCATION PROGRESS NOTE Name: Angie Dixon Date of Service: 11/10/17 Time of Service: 839 ASSESSMENT: Risk Factors Identified: Diabetic: Insulin Dependent Family History Hyperlipidemia Hypertension RECOMMENDATIONS: Patient interested in Phase II Outpatient Cardiac Rehab: Yes. Facility Preferred: [facility] DIAGNOSIS: Percutaneous Cardiac Intervention: ALBERTO PCI Teaching Points: -Basic Anatomy and Disease Process -Personal Modifiable Risk Factor Identification -Activity/Physical Exercise Recommendations -Angina/Heart Attack warning signs and symptoms -When patient should call provider -Emergency planning: Symptom recognition, Stop activity, Rest, Nitroglycerine use, Pulse check, Call 911 -Outpatient Cardiac Rehabilitation READINESS TO LEARN: Cognitive Ability: Alert and Oriented Motivation to Learn: Disinterested / avoidant Family Support: None - Unavailable/disinterested Instruction Provided To: Patient Patient Learns Best By: Individual Instruction, Written Instruction - Hand-outs and Verbal Instruction Factors Affecting Learning: None Physical Limitations Affecting Learning: None LEARNING RESPONSE: Method Of Instruction: Individual instruction Written instruction - handouts Verbal instruction Patient/Family Response: Verbalizes understanding of: Cardiac risk factors and Cardiac rehab phase II Follow-up Plan: No further educational needs identified at this time. Instructional Aids Used: Anatomical Model/Drawing Cardiac Rehabilitation Brochure Signature: Pablo Allison RRT Pager: [phone] Date: November 10, 2017 Time: 8:40 AM HEMOGRAM Collected: 11/10/2017 Status: F Source: [facility] 4:30 AM HEALTH SYSTEM REPOSITORY TYPE CODE TESTS RESULT OUT OF REFERENCE UNITS RANGE LAB WBC(LOINC) 4.23-9.07 thou/cmm High WBC 9.15 LAB RBC(LOINC) 4.63-6.08 mil/cmm Low RBC 2.86 LAB HGB(LOINC) 13.7-17.5 g/dL Low Hgb 8.9 LAB HCT(LOINC) 40.1-51.0 % Low Hct 27.5 LAB MCV(LOINC) 83.2-95.6 fl High MCV 96.2 LAB MCH(LOINC) 25.7-32.2 pg MCH 31.1 LAB MCHC(LOINC) 32.3-36.5 % MCHC 32.4 LAB RDW(LOINC) 11.6-14.4 % High RDW 14.7 LAB RDWSD(LOINC 36.1-45.8 fl ) High RDW SD 51.8 LAB PLT(LOINC) 141-365 thou/cmm Platelet 143 LAB MPV(LOINC) 8.7-12.0 fl MPV 11.5 Performed By: #### CBC1 #### [place] [address] BASIC PANEL Collected: 11/10/2017 Status: F Source: [facility] 4:30 AM HEALTH SYSTEM REPOSITORY TYPE CODE TESTS RESULT OUT OF REFERENCE UNITS RANGE LAB NA(LOINC) 136-145 mEq/L Sodium Blood 139 LAB K(LOINC) 3.5-5.1 mEq/L Potassium Blood 4.0 LAB CL(LOINC) 98-107 mEq/L Chloride High Blood 111 LAB CO2(LOINC) 21-32 mEq/L Low CO2 Blood 18 LAB GLU(LOINC) 70-99 mg/dL Glucose High Blood 108 LAB BUN(LOINC) 7-18 mg/dL BUN High Blood 36 LAB CREA(LOINC 0.67-1.17 mg/dL ) High Creatinine Blood 2.59 LAB CA(LOINC) 8.5-10.1 mg/dL Low Calcium Blood 8.2 LAB ANGAP(LOIN 8-16 C) Anion Gap 14 Performed By: #### P8 #### [place] [address] TROPONIN I Collected: 11/10/2017 Status: F Source: [facility] 4:30 AM HEALTH SYSTEM REPOSITORY TYPE CODE TESTS RESULT OUT OF REFERENCE UNITS RANGE LAB TROP(LOINC) 0.015-0.045 ng/ml High Troponin I 0.273 Performed By: #### TROP #### [place] [address] MDRD GFR Collected: 11/10/2017 Status: F Source: [facility] 4:30 AM HEALTH SYSTEM REPOSITORY TYPE CODE TESTS RESULT OUT OF RANGE REFERENCE UNITS LAB GFRFN(LOINC >60mL/min/1.73m ) 2 eGFR 24.39 Result Comment: If the patient is , multiply the result by 1.210. Performed By: #### GFR #### [place] [address] BRIEF OP NOT Observed: 11/09/2017 Status: COMPLETED Source: [facility] 4:09 PM CLINIC OTHER CAMPUS REPOSITORY O ID: [id number] Author: Ross Morgan Service: Interventional Cardiology Author Type: Physician Type: Brief Op Note Filed: 11/09/2017 4:26 PM Note Text: CARDIAC CATHETERIZATION REPORT PATIENT NAME: Angie Dixon SERVICE DATE: 11/09/2017 SERVICE TIME: 2:30 PM Director Agency & Strategic Partnerships: Dr. Scott Sanford Attending: Ross Morgan RECOMMENDATIONS: DAPT risk factor modification Pre-Procedure Diagnosis: Unstable Angina Post- Procedure Diagnosis: Severe ostial to mid Left Main CAD treated with cutting balloon angioplasty and Drug Eluting Stent placement Procedure: Right and Left Heart Catheterization Access: Right Femoral Artery and Right Femoral Vein Under Local anesthesia the Right Femoral Artery and Right Femoral Vein was entered by Modified Seldinger's technique using a micro puncture needle. A 6F and 8F sheath was introduced into the Right Femoral Artery and Right Femoral Vein . A right heart cath was performed. An EBU 3.75 guide was seated into the LM. A Luge wire was passed into the distal LCx OM 1 branch. Initial balloon inflations were completed in the ostium of the LM using a 3.0 zx 10 mm Cutting balloon. Next a 4.0 x 8 mm Synergy stent was deployed. The cutting balloon was placed in to the distal OM branch and an area of severe ISR was treated with multiple inflations. The sheath was removed and hemostatsis was established using Angioseal closure device. There was no bleeding at the end of the procedure. The pt was returned to the recovery room in a stable condition. FINDINGS: Hemodynamics: LVEDP: 23 mmHg0 LV - AORTA: No gradient RA: 6/9 mmHg RV: 37/7 mmHg PA: 36/16 mmHg PCW: 21 mmHg CO (Skylar): 5.6 L/min CO (TD): 5.3 L/min Coronary Angiography: Left Main: The Ostium to mid LM has a 70-80% stenosis that was treated with cutting balloon angioplasty and placement of a 4.0 x 8mm Synergy stent. Left Anterior Descending: Severe ostial and mid vessel disease Diagonal: Circumflex: Large vessel extends into a single OM branch the vessel has two stents from the LM into the mid-distal OM. Focal area of ISR 70-80% in the distal stent treated with cutting balloon angioplasty using the 3.0 mm balloon. Complications: None SIGNATURE: Ross Morgan MD DATE: November 09, 2017 TIME: 4:09 PM ACT Collected: 11/09/2017 Status: F Source: [facility] 2:21 PM HEALTH SYSTEM REPOSITORY TYPE CODE TESTS RESULT OUT OF RANGE REFERENCE UNITS LAB ACT(LOINC) 89-169 sec High ACT 325 Performed By: #### ACT #### [facility] [address] [place], [place] [address] % O2HB (ARTERIAL) Collected: 11/09/2017 Status: F Source: [facility] 1:49 PM HEALTH SYSTEM REPOSITORY TYPE CODE TESTS RESULT OUT OF RANGE REFERENCE UNITS LAB O2HBA(LOINC 92.00-100.00 % ) Low % O2HB 86.30 (arterial) Performed By: #### O2HBA #### [facility] [address] [place], [place] [address] % O2HB (VENOUS) Collected: 11/09/2017 Status: F Source: [facility] 1:48 PM HEALTH SYSTEM REPOSITORY TYPE CODE TESTS RESULT OUT OF RANGE REFERENCE UNITS LAB O2HBV(LOINC 40.00-70.00 % ) % O2HB 50.30 (venous) Performed By: #### O2HBV #### [facility] [address] [place], [place] [address] PROGRESS Observed: 11/09/2017 Status: COMPLETED Source: [facility] 9:44 AM CLINIC OTHER CAMPUS REPOSITORY HNO ID: [id number] Author: Norman Saldana Service: Interventional Cardiology Author Type: Nurse Practitioner Type: Progress Notes Filed: 11/09/2017 11:45 AM Note Text: PROGRESS NOTE CARDIOLOGY SERVICE SERVICE DATE: 11/09/2017 SERVICE TIME: 9:44 AM Subjective INTERIM HISTORY: Angie Dixon is a 72-year-old gentleman with a PMH significant for HTN, HLD, DMT2, PVD, and coronary artery disease s/p coronary bypass surgery in 2006 and PCI with stents in 2012 [id number]. He was transferred from [facility] where he presented with complaints of chest pain, for revascularization. He is resting in bed, no acute distress. Denies any chest pain or tightness, SOB, palpitations, dizziness, syncope, PND, or lower leg swelling. He did experience chest pressure when ambulating to the cart last evening. He states he slept well last night for the first time in days. He will undergo Right and left heart catheterization today. CARDIAC STATUS: Chest Pain: Denies at present; exertional Dyspnea: Denies Ankle Edema: None noted Arrhythmia: Sinus Rhythm, rate 85 Functional Capacity: Stable Objective PHYSICAL EXAM: Body mass index is 26.63 kg/m?. O2 Therapy: Room Air No Data Recorded Patient Vitals for the past 24 hrs: BP Temp Temp src Pulse Resp SpO2 Height Weight 11/09/17 0809 150/85 36.6 ?C (97.9 ?F) Oral 87 16 99 % - - 11/09/17 0540 148/66 36.4 ?C (97.5 ?F) Oral 86 19 96 % - - 11/09/17 0030 137/71 36.4 ?C (97.5 ?F) Oral 85 19 96 % - - 11/08/17 2050 148/75 36.4 ?C (97.5 ?F) Oral 90 19 97 % - - 11/08/17 1756 - 36.7 ?C (98.1 ?F) Oral - - - - - 11/08/17 1557 - - - - - - 170.2 cm (5' 7) 77.1 kg (170 lb) 11/08/17 1545 141/88 - - 83 19 96 % - - Pleasant, comfortable, not in acute distress. Awake, alert, oriented times 3. Moves all extremities. SKIN: No rash or lumps. HEENT: Normocephalic, face symmetrical. NECK: Supple, no JVD, no thyromegaly. LUNGS: Clear to auscultation bilaterally. No wheezes. CARDIAC: PMI present, RRR, S1 and S2, no S3 or S4, no additional heart sounds or murmurs. ABDOMEN: Soft, nontender, bowel sounds present. Colostomy bag LLQ. EXTREMITIES: No edema. PULSES: Peripheral pulses present. MEDICATIONS: Current hospital medications: NaCl 0.9% iv infusion 75 mL/hr INTRAVENOUS CONTINUOUS heparin 1,000 Units in D5W 250 mL 1,000 Units INTRA-ARTERIAL ONE TIME heparin 3,000 Units in NaCl 0.9% 500 mL irrigation 3,000 Units IRRIGATION ONE TIME mirtazapine 15 mg (REMERON) 15 mg ORAL AT BEDTIME clopidogrel 75 mg tab(s) (PLAVIX) 75 mg ORAL DAILY aspirin, enteric coated 81 mg tab(s) 81 mg ORAL DAILY allopurinol 100 mg tab(s) (ZYLOPRIM) 100 mg ORAL DAILY insulin glargine 14 Units pen (long acting) (LANTUS SOLOSTAR, BASAGLAR KWIKPEN) 14 Units SUBCUTANEOUS DAILY doxazosin 4 mg tab(s) (CARDURA) 4 mg ORAL DAILY carvedilol 25 mg tab(s) (COREG) 25 mg ORAL BID w MEALS hydrALAZINE 50 mg tab(s) (APRESOLINE) 50 mg ORAL BID isosorbide mononitrate ER 60 mg tab(s) (IMDUR) 60 mg ORAL DAILY (6 AM) furosemide 40 mg tab(s) (LASIX) 40 mg ORAL DAILY sucralfate 1 g tab(s) (CARAFATE) 1 g ORAL AC and HS ferrous sulfate 325 mg tab(s) 325 mg ORAL DAILY WITH BREAKFAST 0.9% NaCl 2-10 mL 2-10 mL INTRAVENOUS q 12 H nitroglycerin sublingual 0.4 mg tab(s) (NITROQUICK) 0.4 mg SUBLINGUAL q 5 MIN PRN atropine 0.4 mg injection 0.4 mg INTRAVENOUS PRN(NO DISPENSE) dextrose 40 % 15 g 15 g ORAL PRN glucagon 1 mg injection (GLUCAGEN) 1 mg INTRAMUSCULAR PRN dextrose 50% in water 25 mL syringe 12.5 g INTRAVENOUS PRN heparin iv infusion (LOW DOSE ACS/NOMOGRAM) 25,000 units in NaCl 0.45% 250 mL PREMIX 0-3,000 Units/hr INTRAVENOUS CONTINUOUS heparin RATE CHANGE bolus 1,000-4,000 Units for subtherapeutic aptt results 1,000-4,000 Units INTRAVENOUS PRN diltiazem CD 120 mg cap(s) (CARDIZEM CD, CARTIA XT) 120 mg ORAL DAILY venlafaxine ER 150 mg cap(s) (EFFEXOR XR) 150 mg ORAL DAILY WITH BREAKFAST DATA: Diagnostic tests reviewed for today's visit: Most recent labs and imaging results. 11/08/2017 VQ Scan: IMPRESSION: SCINTIGRAPHIC FINDINGS MOST CONSISTENT WITH A LOW PROBABILITY FOR PULMONARY EMBOLISM IN THE ABSENCE OF AN ACTIVE PARENCHYMAL INFILTRATE ON CHEST X-RAY. 11/08/2017 CXR: IMPRESSION: ? No acute radiographic abnormality. Past 72 Hour Labs: Recent Labs 11/09/17 0815 11/09/17 0045 11/08/17 1804 TROPI -- 0.332* 0.385* WBC -- 8.79 9.06 RBC -- 2.98* 3.29* HB -- 9.2* 10.1* HCT -- 28.3* 31.5* MCV -- 95.0 95.7* MCH -- 30.9 30.7 MCHC -- 32.5 32.1* PLT -- 151 170 MPV -- 11.4 11.3 PTSEC -- -- 10.8 APTT 79.9* 41.3* 38.1* INR -- -- 0.98 Last Lab Drawn: Triglyceride 184 11/09/2017 HDL Cholesterol 46 11/09/2017 LDL Chol, Glenn 152 11/09/2017 Cholesterol, Total 235 11/09/2017 Assessment/Plan NSTEMI (non-ST elevated myocardial infarction) (HCC) POA: Yes 72 year old gentleman with previous known coronary artery disease s/p CABG (CHARLES to LAD, SVG to PDA, SVG to LCX ) in 2006. Last heart catheterization 09/08/2017 He was found to have a patent CHARLES graft to the LAD a patent vein graft to the PDA branch and known occluded vein graft to the left circumflex with the circumflex stent that went from the left main into the first large obtuse marginal branch and some ostial disease in the left main coronary artery. -Denies any chest pain at present, did have some on exertion last evening -Troponin peak 0.48 at [facility] -Will have [facility] today, IVUS evaluation of LM into LCX, possible rotational laser atherectomy. Educated on procedure and post-procedure, including activity, restrictions, medications, and follow up. Risk, benefit, and alternative to cardiac catheterization +/- PCI with possible need for prolonged dual antiplatelet therapy were discussed with patient. Acknowledging risk and benefit (including , OK, CVA, urgent CABG, renal failure, hemorrhage, etc.) Patient agrees with plan and verbalized understanding. 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 Chronic HFrEF: -Will check BNP -Weight yesterday 77.1 kg -Continue on BB, lasix, hydralazine, and imdur -No ACEI d/t reported allergy (cough) -Continue CHF core measures: Strict IANDO, daily standing weights, and CHF diet -Heart failure clinic referral HLD: -Lipids 11/09: Cholesterol 235, Triglyceride 184, HDL 46, LDL 152 -intolerant to statins HTN: -150/85 -Continue to monitor Blood pressure, can consider up-titration of medications after [facility] Medication and Non-Pharmacologic VTE Prophylaxis/Anticoagulants Anticoagulant AND Antiplatelet Medications Start Dose Route Frequency Ordered Stop 11/09/17 0710 heparin 1,000 Units in D5W 250 mL (Staff Nurse Icu Resource Team Procedures) 1,000 Units IArt ONE TIME 11/09/17 0710 -- 11/09/17 0710 heparin 3,000 Units in NaCl 0.9% 500 mL irrigation (Staff Nurse [facility] Resource Team Procedures) 3,000 Units IRRIGATION ONE TIME 11/09/17 0710 -- 11/08/17 1730 clopidogrel 75 mg tab(s) (PLAVIX) 75 mg ORAL DAILY 11/08/17 1724 -- 11/08/17 1730 aspirin, enteric coated 81 mg tab(s) 81 mg ORAL DAILY 11/08/17 1724 -- 11/08/17 1730 heparin iv infusion (LOW DOSE ACS/NOMOGRAM) 25,000 units in NaCl 0.45% 250 mL PREMIX (Heparin Infusion + Rate Change Bolus) 0-30 mL/hr 0-3,000 Units/hr INTRAVENOUS CONTINUOUS 11/08/17 1724 -- @ PLINK([id number])@ VTE Prophylaxis: VTE prophylaxis appropriate SIGNATURE: Norman Saldana APRN.CNP PATIENT NAME: Angie Dixon DATE: November 09, 2017 TIME: 9:44 AM PAGER/CONTACT #: [phone] ACTIVATED PTT Collected: 11/09/2017 Status: F Source: [facility] 8:15 AM HEALTH SYSTEM REPOSITORY TYPE CODE TESTS RESULT OUT OF REFERENCE UNITS RANGE LAB APTT(LOINC 23.0-32.4 sec ) High Activated PTT 79.9 Result Comment: Note: New Reference Range Unfractionated Heparin Therapeutic Ranges: Standard Heparin Nomogram: 53 to 78 seconds (anti-Xa level of 0.3 to 0.7 U/mL) Low Dose/ACS Nomogram: 49 to 67 seconds (anti-Xa level of 0.2 to 0.5 U/mL) Stroke Treatment Nomogram: 49 to 67 seconds (anti-Xa level of 0.2 to 0.5 U/mL) Note: The APTT therapeutic range has been determined for the current lot of laboratory APTT reagent in use throughout the [facility]. Performed By: #### APTT #### [facility] [address] [place] [address] HEMOGRAM Collected: 11/09/2017 Status: F Source: [facility] 12:45 AM HEALTH SYSTEM REPOSITORY TYPE CODE TESTS RESULT OUT OF REFERENCE UNITS RANGE LAB WBC(LOINC) 4.23-9.07 thou/cmm WBC 8.79 LAB RBC(LOINC) 4.63-6.08 mil/cmm Low RBC 2.98 LAB HGB(LOINC) 13.7-17.5 g/dL Low Hgb 9.2 LAB HCT(LOINC) 40.1-51.0 % Low Hct 28.3 LAB MCV(LOINC) 83.2-95.6 fl MCV 95.0 LAB MCH(LOINC) 25.7-32.2 pg MCH 30.9 LAB MCHC(LOINC) 32.3-36.5 % MCHC 32.5 LAB RDW(LOINC) 11.6-14.4 % High RDW 14.7 LAB RDWSD(LOINC 36.1-45.8 fl ) High RDW SD 50.7 LAB PLT(LOINC) 141-365 thou/cmm Platelet 151 LAB MPV(LOINC) 8.7-12.0 fl MPV 11.4 Performed By: #### CBC1 #### [place] [address] ACTIVATED PTT Collected: 11/09/2017 Status: F Source: [facility] 12:45 AM HEALTH SYSTEM REPOSITORY TYPE CODE TESTS RESULT OUT OF REFERENCE UNITS RANGE LAB APTT(LOINC 23.0-32.4 sec ) High Activated PTT 41.3 Result Comment: Note: New Reference Range Unfractionated Heparin Therapeutic Ranges: Standard Heparin Nomogram: 53 to 78 seconds (anti-Xa level of 0.3 to 0.7 U/mL) Low Dose/ACS Nomogram: 49 to 67 seconds (anti-Xa level of 0.2 to 0.5 U/mL) Stroke Treatment Nomogram: 49 to 67 seconds (anti-Xa level of 0.2 to 0.5 U/mL) Note: The APTT therapeutic range has been determined for the current lot of laboratory APTT reagent in use throughout the [facility]. Performed By: #### APTT #### [place] [address] LIPID PROFILE Collected: 11/09/2017 Status: F Source: [facility] 12:45 AM netTALK SYSTEM REPOSITORY TYPE CODE TESTS RESULT OUT OF REFERENCE UNITS RANGE LAB CHOL(LOINC 0-199 mg/dL ) Cholesterol High Blood 235 Result Comment: <200 Desirable 200-240 Borderline >240 High LAB TRIG(LOINC) 0-149 mg/dL Triglyceride High Blood 184 Result Comment: < 200 Desirable Result invalid if not a fasting specimen. LAB HDL2(LOINC) >40 mg/dL HDL Cholesterol 46 LAB CHHDL(LOINC) 2.1-7.3 CHOL/HDL 5.1 LAB LDL(LOINC) mg/dL LDL (Calculated) 152 Result Comment: No CAD and with fewer than 2 CAD risk factors <160 mg/dL No CAD but with 2 or more CAD risk factors <130 mg/dL Definite CAD or other atherosclerotic disease <100 mg/dL LAB VLDL(LOINC) <50 Desired mg/dL VLDL Cholesterol 37 LAB LDHDL(LOINC) 1.1-4.8 LDL/HDL 3.3 Result Comment: LDL,VLDL,LDL/HDL, Invalid if Triglyceride >400 Performed By: #### LIPD2 #### [place] [address] TROPONIN I Collected: 11/09/2017 Status: F Source: [facility] 12:45 netTALK SYSTEM REPOSITORY TYPE CODE TESTS RESULT OUT OF REFERENCE UNITS RANGE LAB TROP(LOINC) 0.015-0.045 ng/ml High Troponin I 0.332 Performed By: #### TROP #### [place] [address] CHEST 1 VIEW Observed: 11/08/2017 Status: F Source: [facility] 8:48 PM HEALTH SYSTEM REPOSITORY Performed at [facility] APPROVED BY: Hemant Baxter MD EXAMINATION: CHEST RADIOGRAPH (SINGLE VIEW AP OR PA) Clinical History: Pre-operative assessment. Coronary artery disease. Status post VQ scan. M: [id number] Comparison: Chest 2 views 12/03/2013. RESULT: Lines, tubes, and devices: Single lead cardiac pacer/defibrillator device noted with lead tip projecting over the right ventricular apex. Lungs and pleura: No consolidation. No lung mass. No pleural effusion or pneumothorax. Cardiomediastinal silhouette: Within normal limits and unchanged. Other: Scoliosis again noted. IMPRESSION: No acute radiographic abnormality. LUNG VENTILATION Observed: 11/08/2017 Status: F Source: [facility] 8:23 PM HEALTH SYSTEM REPOSITORY Performed at [facility] APPROVED BY: JOSELIN HERNANDEZ MD VENTILATION-PERFUSION LUNG SCAN HISTORY: 72-year-old male with shortness of breath, history of pulmonary hypertension, assessment for suspected pulmonary embolism TECHNIQUE: 20 mCi to deliver approximately 0.6 mCi Tc-99m DTPA by aerosol. 3.0 mCi Tc-99m MAA IV. Planar images of pulmonary perfusion and ventilation were obtained in anterior, posterior, lateral and oblique projections. FINDINGS: Retention of the radiolabeled aerosol is noted in the upper airways. Swallowed radioaerosol is noted in the gastrointestinal tract. Ventilation and perfusion images were obtained in slightly different projections. No hypoperfused areas with preserved ventilation are identified to suggest pulmonary embolism. Nonsegmental matching perfusion and ventilatory defects are identified in both lungs. In the absence of a n active infiltrate on chest x-ray the scintigraphic findings would be considered low probability for pulmonary embolism. IMPRESSION: SCINTIGRAPHIC FINDINGS MOST CONSISTENT WITH A LOW PROBABILITY FOR PULMONARY EMBOLISM IN THE ABSENCE OF AN ACTIVE PARENCHYMAL INFILTRATE ON CHEST X-RAY. PROGRESS Observed: 11/08/2017 Status: COMPLETED Source: [facility] 8:21 PM [facility] OTHER CAMPUS REPOSITORY HNO ID: [id number] Author: Abel Figueroa (Rt) Service: Radiology Author Type: Metal Refiner Type: Progress Notes Filed: 11/08/2017 8:22 PM Note Text: RADIOLOGY SERVICE PROGRESS NOTE SERVICE DATE: 11/08/2017 SERVICE TIME: 8:21 PM PATIENT IDENTITY VERIFICATION COMPLETED USING TWO (2) METHODS: Patient confirmed name and Date of verbally. PATIENT GENDER DATA: .male ALLERGIES: Reviewed and unchanged MEDICATIONS REVIEWED: Yes PATIENT RELEVANT IMPLANT DATA REVIEWED: Not Applicable CREATININE: Creatinine Date Value Ref Range Status 10/05/2017 2.86 (A) 0.6 - 1.3 MG/DL Final 09/26/2017 2.98 (A) 0.6 - 1.3 MG/DL Final 09/14/2017 2.87 (A) 0.6 - 1.3 MG/DL Final 09/12/2016 2.68 (H) 0.73 - 1.22 mg/dL Final 06/05/2015 3.04 (H) 0.70 - 1.40 mg/dL Final 01/13/2015 2.92 (H) 0.70 - 1.40 mg/dL Final eGFR-All Other Races Date Value Ref Range Status 09/12/2016 24 . Final Comment: eGFR (Estimated GFR) Units of measure: mL/min/1.73 meters squared eGFR is derived from the reexpressed MDRD Study equation using the following parameters: serum creatinine, age, gender and race. The creatinine assay has been calibrated to be traceable to IDMS. An eGFR <60 mL/min/1.73m2 for >3 months is consistent with chronic kidney disease. Refer to KDOQI guidelines for clinical interpretation. In patients with unstable renal function, e.g. those with acute kidney injury, the eGFR may not accurately reflect actual GFR. eGFR- Date Value Ref Range Status 09/12/2016 28 Final P.O.C.T. RESULTS: N/A November 08, [address] PERFORMED: Yes. RADIOLOGIST NOTIFIED?: No CONTRAST ALLERGY: NO. PREMEDICATED: No CONTRAST: Not applicable DIABETIC PATIENT: Not applicable IV SITE: Inpatient - refer to [facility] documentation POST EXAM PIV STATUS: Left in for next appointment PROCEDURE TYPE: VQ Scan: 0.8 mCi of Tc99m DTPA was inhaled. 3 mCi of Tc99m MAA was administered IV. ADMINISTRATION TIME: 820 PATIENT DISCHARGED TO: Patient taken to IP transport area for return to RNF/ICU/ED. A Diagnostic radioactive procedure has taken place, with no further precautions necessary other than routine body substance precautions. More information regarding radiation safety can be found using this link: [email or web address] SIGNATURE: RT Henry PATIENT NAME: Angie Dixon DATE: November 08, 2017 TIME: 8:21 PM PAGER/CONTACT #: HISTORY PHYSICAL Observed: 11/08/2017 Status: COMPLETED Source: [facility] 7:13 PM CLINIC OTHER CAMPUS REPOSITORY HNO ID: [id number] Author: Ross Morgan Service: Interventional Cardiology Author Type: Physician Type: HANDP Filed: 11/08/2017 7:24 PM Note Text: HISTORY AND PHYSICAL EXAMINATION SERVICE DATE: 11/08/2017 SERVICE TIME: 4:30 PM PRIMARY CARE PHYSICIAN: Ramo Moreira III MD Subjective HPI This is a 72-year-old gentleman with a history of coronary artery disease and coronary bypass surgery in [address] Jayy Sanford from [facility]. The patient underwent catheterization in August for complaints of chest pain. He was found to have a patent CHARLES graft to the LAD a patent vein graft to the PDA branch and known occluded vein graft to the left circumflex with the circumflex stent that went from the left main into the first large obtuse marginal branch. Some ostial disease in the left main coronary artery. Patient was referred for medical therapy due to his chronic kidney disease. He presented back to the hospital today with ongoing symptoms of chest pain. He describes aching in his shoulder blade and the sharp feeling in his chest that occurs both at rest and with exertion. He's had difficulty sleeping for the past one month. He tells me he frequently will wake up at night with severe 10 out of 10 sharp aching chest pain. It'll radiate to his left jaw and to the back shoulder blades. He's had similar symptoms when he had his stents placed in 2012 and 2013. He describes aching feeling in his chest that occurs with exertion. This is similar to his nocturnal symptoms but somewhat different in the nature and intensity. He denies symptoms for CHF including PND, orthopnea, or lower extremity edema. He does not have feelings of palpitations, lightheadedness, dizziness, or syncope. He has been treated for gastroesophageal reflux disease in the past. He's been on multiple different medications with no real change in his symptoms. FUNCTIONAL STATUS: Independent 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 ([facility]) - BPH (benign prostatic hypertrophy) with urinary obstruction 07/09/2014 - CAD (coronary artery disease) - Chronic renal insufficiency - DVT of upper extremity (deep vein thrombosis) ([facility]) - Esophageal reflux - Essential hypertension, benign - Gout 04/22/2010 - Hx of CABG 3 - Iatrogenic pulmonary embolism and infarction ([facility]) - LV dysfunction - NSTEMI (non-ST elevated myocardial infarction) ([facility]) 2012 - Other and unspecified hyperlipidemia - Type 2 diabetes mellitus with stage 4 chronic kidney disease ([facility]) 06/05/2015 - Unequal leg length (acquired) PAST SURGICAL HISTORY Procedure Laterality Date - APPENDECTOMY - CABG, ARTERY-VEIN, THREE 09/2006 CABG, three grafts - COLONOSCOP W/ OR W/O BRSH SPEC 01/22/15 Colonoscopy - COLOSTOMY 2007 revision - KNEE SCOPE,DIAGNOSTIC Arthroscopy, knee - REPAIR ING HERNIA,5+Y/O,REDUCIBL 2008 Hernia repair, inguinal - STENT PLACEMENT 10/2012 Heart stent - STENT PLACEMENT 11/05/2013 2 heart stents placed at [facility] - SUTURE LRG INTEST W COLOSTOMY 09/2006 bowel perforation,iliostomy - TOTAL KNEE REPLACEMENT 11/30/2015 Dr Nguyễn - right knee FAMILY HISTORY Problem Relation Age of Onset - Stroke Mother - Stroke Father Social History Substance Use Topics - Smoking status: Former Smoker Packs/day: 3.00 Years: 3.00 Types: Cigarettes Quit date: 09/20/1971 - Smokeless tobacco: Never Used - Alcohol use No Prescriptions Prior to Admission: ferrous sulfate (IRON, FERROUS SULFATE,) 325 mg (65 mg iron) tablet Take 45 mg by mouth daily with breakfast. Disp: Rfl: diltiazem (CARDIZEM) 120 mg tablet Take 120 mg by mouth once daily. Disp: Rfl: sucralfate (CARAFATE) 1 gram tablet Take 1 tablet by mouth before meals and at bedtime. Disp: 60 tablet Rfl: 2 furosemide (LASIX) 20 mg tablet Take 2 tablets by mouth once daily. Disp: 180 tablet Rfl: 3 carvedilol (COREG) 25 mg tablet Take 25 mg by mouth twice daily with meals. Disp: Rfl: Taking hydrALAZINE (APRESOLINE) 50 mg tablet Take 50 mg by mouth twice daily. Disp: Rfl: Taking isosorbide mononitrate ER (IMDUR) 60 mg 24 hr tablet Take 60 mg by mouth once daily. Disp: Rfl: Taking allopurinol (ZYLOPRIM) 100 mg tablet Take 1 tablet by mouth once daily. For gout. Disp: 180 tablet Rfl: 3 Taking venlafaxine (EFFEXOR) 75 mg tablet Take 2 tablets by mouth once daily. Disp: 180 tablet Rfl: 3 Taking insulin glargine (LANTUS SOLOSTAR U-100 INSULIN) 100 unit/mL (3 mL) inpn Inject 14 Units subcutaneously once daily. Disp: Rfl: Taking doxazosin (CARDURA) 4 mg tablet Take 1 tablet by mouth once daily. (Patient taking differently: Take 2 mg by mouth daily at bedtime. ) Disp: 90 tablet Rfl: 3 Taking clotrimazole-betamethasone (LOTRISONE) cream Apply 1 application to affected area twice daily. Disp: 30 g Rfl: 1 Taking Insulin [place], Disposable, (PEN NEEDLE) 29 gauge X 1/2 ndle Use one needle per dose. one per day Disp: 100 Each Rfl: 3 Taking aspirin, enteric coated (ASPIR-LOW) 81 mg EC tablet Take 1 tablet by mouth once daily. Disp: Rfl: 0 Taking clopidogrel (PLAVIX) 75 mg tablet Take 1 tablet by mouth once daily. [id number] Disp: 90 tablet Rfl: 3 Taking mirtazapine 15 mg tablet Take 1 tablet by mouth daily at bedtime. Disp: Rfl: 0 Taking ALLERGIES Allergen Reactions - Atorvastatin Calcium Intolerance Joint pains - Covera-Hs [Verapami* Intolerance passed out - Lisinopril Cough - Niaspan [Niacin] Rash COMPLETE REVIEW OF SYSTEMS: Review of Systems REVIEW OF SYSTEMS PAIN ASSESSMENT: Negative for pain, history of chronic pain, or current treatment for a chronic pain condition. GENERAL: No weight loss, malaise or fevers RESPIRATORY: Negative for cough, hemoptysis, wheezing, COPD, dyspnea or shortness of breath CARDIOVASCULAR: Decreasing exercise tolerence, Shortness of breath, Hypertension, See HPI GI: Positive for abdominal discomfort He believes secondary to a history of hernia mesh, heart burn As noted in history of present illness is undergone multiple therapies. MUSCULOSKELETAL: Negative for joint pain or swelling, back pain or muscle pain PSYCH: sleep fragmented, Positive for anxiety: Patient tells me has a history of PTSD. He believes that he get some relief with his current medical therapy ENDOCRINE: Negative for cold or heat intolerance, polyuria, polydipsia and goiter NEURO: No history of headaches, syncope, paralysis, seizures or tremors Objective PHYSICAL EXAM: Physical Exam BP 141/88 Pulse 83 Temp 36.7 ?C (98.1 ?F) (Oral) Resp 19 Ht 170.2 cm (5' 7) Wt 77.1 kg (170 lb) SpO2 96% BMI 26.63 kg/m? Body mass index is 26.63 kg/m?. General: This is an anxious gentleman sitting in bed. No apparent distress. He is alert and oriented ?3. Pulmonary: Lungs are clear no Rales wheezes rhonchi. Cardiovascular: Normal S1 and S2 no murmurs rubs or gallops appreciated. Abdomen: Soft nontender nondistended positive bowel sounds. Colostomy bag noted and left lower quadrant. Extremities: Warmup perfuse distal pulses are preserved at 2+. No lower extremity edema. DATA: Diagnostic tests reviewed for today's visit: Most recent labs and imaging results. Assessment/Plan 72-year-old gentleman who presents on transfer from outside hospital with mildly elevated troponin possibly consistent with non-ST elevation microinfarction type I due to worsening obstructive coronary artery disease left main coronary artery into the left circumflex obtuse marginal branch. I reviewed his catheterization films from 2012, 2013, and from August of this year. I discussed case with Dr. Sanford. Patient has a stent in the left main. Started to tell where the stent begins in the calcification of the ostium to mid left main begins. I recommended proceeding with NATHAN evaluation of the ostium to proximal left main coronary artery for further delineation of the degree of disease versus in-stent restenosis or calcified obstruction. Options for treatment include medical therapy, versus rotational arthrectomy or laser arthrectomy. Coronary artery disease: We'll plan for cardiac catheterization with IVUS evaluation of the left main into left circumflex coronary artery. Possible rotational or laser atherectomy followed by stent placement of the ostial left main coronary artery. Ischemic cardiomyopathy: Patient has had worsening LV function. Results of echocardiogram are pending. We'll review his echocardiographic films. She is on appropriate medical therapy given his chronic kidney disease. Chronic systolic congestive heart failure in the setting of chronic kidney disease stage IV. We'll check a BNP and repeat basic metabolic panel. Newly diagnosed pulmonary hypertension on echocardiogram at [facility]: We'll check a VQ scan this evening given the risk for pulmonary embolus. If low risk intermediate risk and may consider right heart catheterization tomorrow for further evaluation of pulmonary pressures. SIGNATURE: Ross Morgan MD PATIENT NAME: Angie Dixon DATE: November 08, 2017 TIME: 7:13 PM PAGER/CONTACT #: [email or web address] Collected: 11/08/2017 Status: F Source: [facility] 6:04 [facility] SYSTEM REPOSITORY TYPE CODE TESTS RESULT OUT OF REFERENCE UNITS RANGE LAB WBC(LOINC) 4.23-9.07 thou/cmm WBC 9.06 LAB RBC(LOINC) 4.63-6.08 mil/cmm Low RBC 3.29 LAB HGB(LOINC) 13.7-17.5 g/dL Low Hgb 10.1 LAB HCT(LOINC) 40.1-51.0 % Low Hct 31.5 LAB MCV(LOINC) 83.2-95.6 fl High MCV 95.7 LAB MCH(LOINC) 25.7-32.2 pg MCH 30.7 LAB MCHC(LOINC) 32.3-36.5 % Low MCHC 32.1 LAB RDW(LOINC) 11.6-14.4 % High RDW 14.9 LAB RDWSD(LOINC 36.1-45.8 fl ) High RDW SD 51.6 LAB PLT(LOINC) 141-365 thou/cmm Platelet 170 LAB MPV(LOINC) 8.7-12.0 fl MPV 11.3 Performed By: #### CBC1 #### [facility] [address] [id number] ACTIVATED PTT Collected: 11/08/2017 Status: F Source: [facility] 6:04 HEALTH SYSTEM REPOSITORY TYPE CODE TESTS RESULT OUT OF REFERENCE UNITS RANGE LAB APTT(LOINC 23.0-32.4 sec ) High Activated PTT 38.1 Result Comment: Note: New Reference Range Unfractionated Heparin Therapeutic Ranges: Standard Heparin Nomogram: 53 to 78 seconds (anti-Xa level of 0.3 to 0.7 U/mL) Low Dose/ACS Nomogram: 49 to 67 seconds (anti-Xa level of 0.2 to 0.5 U/mL) Stroke Treatment Nomogram: 49 to 67 seconds (anti-Xa level of 0.2 to 0.5 U/mL) Note: The APTT therapeutic range has been determined for the current lot of laboratory APTT reagent in use throughout the [facility]. Performed By: #### APTT #### [place] [id number] PROTIME Collected: 11/08/2017 Status: F Source: [facility] 6:[facility] REPOSITORY TYPE CODE TESTS RESULT OUT OF REFERENCE UNITS RANGE LAB PTI(LOINC) 9.7-13.0 sec Prothrombin Time 10.8 LAB INR(LOINC) 0.90-1.30 INR 0.98 Result Comment: Note: Reference Range Change Vitamin K Antagonist (VKA) Therapeutic Range: INR 2 to 3 (Target INR of 2.5) Note: For patients treated with VKA drugs, such as warfarin, the [employer] 2012 Guideline recommends a therapeutic INR range of 2 to 3 (target INR of 2.5). This recommendation includes high-risk patients with antiphospholipid syndrome with previous arterial or venous thromboembolism, current-generation mechanical or bioprosthetic aortic heart valve replacement. VKA Therapeutic Range for some Mechanical Valve Replacement: INR 2.5 to 3.5 (Target INR of 3) Note: Patients with mechanical aortic valve replacement and additional risk factors for thromboembolic events (atrial fibrillation, previous thromboembolism, LV dysfunction, hypercoagulable conditions) or an older generation mechanical AVR (i.e., ball in-Cage) or any mechanical MVR should have a INR therapeutic range of 2.5 to 3.5 target INR of 3). Jeremy GH, et al. Chest 2012; 141:7S-47S Dylan RA, et al. JAC 2017; 70: 252-289 Performed By: #### PT #### [facility] [address] [place] [id number] TROPONIN I Collected: 11/08/2017 Status: F Source: [facility] 6:[facility] REPOSITORY TYPE CODE TESTS RESULT OUT OF REFERENCE UNITS RANGE LAB TROP(LOINC) 0.015-0.045 ng/ml High Troponin I 0.385 Performed By: #### TROP #### [facility] [address] [place], [place] [address] EKG (AK,AV,EU,FV,HL,DAPHNE,MM,SP) Observed: Status: F Source: [facility] 11/08/2017 5:32 PM CLINIC OTHER CAMPUS REPOSITORY NAME : ANGIE DIXON PID : [id number] : 1945 Gender : Male Race : ORD : [id number] Procedure Date : Nov 08 2017 17:32 Edit Date : Nov 10 2017 16:29 Diagnosis:SINUS RHYTHM WITH FREQUENT PREMATURE VENTRICULAR COMPLEXES POSSIBLE LEFT ATRIAL ENLARGEMENT ST & T WAVE ABNORMALITY, CONSIDER INFERIOR ISCHEMIA PROLONGED QT ABNORMAL ECG WHEN COMPARED WITH ECG OF 03-DEC-2013 07:30, PREMATURE VENTRICULAR COMPLEXES ARE NOW PRESENT QRS DURATION HAS INCREASED T WAVE INVERSION NOW EVIDENT IN INFERIOR LEADS INVERTED T WAVES HAVE REPLACED NONSPECIFIC T WAVE ABNORMALITY IN LATERAL LEADS Confirmed by DO Steve Jeffrey ([id number]) on 11/10/2017 4:29:10 PM Ventricular Rate : 91 BPM Atrial Rate : 91 BPM P-R Interval : 190 ms QRS Duration : 100 ms Q-T Interval : 386 ms QTC Calculation(Bezet) : 474 ms P Crosby : 51 degrees R Crosby : 54 degrees T Crosby : 249 degrees Test Reason : Chest Pain Location : 42 : [id number] Overread By : DO Steve Jeffrey Editted By : DO Steve Jeffrey Referred By : ROSS MORGAN Acquired by : 426, NURSING PROG Observed: 11/08/2017 Status: COMPLETED Source: [facility] 3:42 PM CLINIC OTHER [place] REPOSITORY HNO ID: [id number] Author: Emily (Rn) LEE Miller Service: (none) Author Type: Registered Nurse Type: Nursing Progress Note Filed: 11/08/2017 3:43 PM Note Text: Patient arrived from [facility], continued heparin gtt at 8ml/hr. ECHOCARDIOGRAM COMPLETE Observed: 11/08/2017 Status: F Source: [place] 2:57 PM [facility] REPOSITORY [facility] Cardiovascular Services [address] [place] [address] Echo Complete 11/08/17 0822 MR#: [id number] Acct: [id number] Name: ANGIE DIXON Clarisse Rep #: [id number] : 1945 72 From: Jayy Sanford MD Attending Dr: Ross Ackerman MD Status: DIS IN Ordering Dr: Carmen Hogan Date: 11/07/17 Location: ICU Sex: M C Admitted: 11/07/17 Reason For Study: Chest Pain Procedure This was a 2D Doppler, Color Flow transthoracic echocardiogram. Exam performed portable in patient room. Left Ventricle Mildly dilated left ventricle. The estimated ejection fraction is 25 %. There is severe global hypokinesis of the left ventricle. Right Ventricle Mildly dilated right ventricle. ICD or pacer leads identified within the right ventricle. Mild global right ventricular systolic dysfunction. Atria Normal left atrium. Normal right atrium. Normal atrial septum. Mitral Valve The mitral valve is structurally normal. No prolapse or stenosis seen. Moderate (2+) mitral valve insufficiency. Tricuspid Valve Normal tricuspid valve. Mild to moderate (1-2+) tricuspid valve insufficiency. Right ventricular systolic pressure estimated to be 61 mmHg. Severe pulmonary hypertension. Aortic Valve Trisinus/trileaflet aortic valve. Mild diffuse aortic valve thickening. Mild (1+) aortic valve insufficiency. Pulmonic Valve Normal pulmonic valve. Great Vessels Normal aortic root. Normal arch. Pericardium/Pleural No pericardial effusion. MMode/2D Measurements AND Calculations LVIDd: 5.2 cm IVSd: 1.2 cm Ao root diam: 3.3 cm LVIDs: 4.6 cm LVPWd: 1.1 cm LA dimension: 4.7 cm RVDd: 3.9 cm FS: 10.6 % LAV(MOD-bp): 54.1 ml LVAd ap4: 36.7 cm2 SV(MOD-sp4): 41.4 ml LAV(MOD-bp) Indexed: 31.4 ml/m2 EDV(MOD-sp4): 126.9 ml LAV(MOD-sp2): 70.5 ml EDV(sp4-el): 131.2 ml LAV(MOD-sp4): 44.8 ml LVAs ap4: 27.7 cm2 ESV(MOD-sp4): 85.5 ml ESV(sp4-el): 85.5 ml EF(MOD-sp4): 32.6 % EF(sp4-el): 34.8 % SV(sp4-el): 45.7 ml LA A4 area: 17.0 cm2 RA A4 area: 13.0 cm2 Doppler Measurements AND Calculations MV E max johanny: 103.9 cm/sec Lat Peak E' Johanny: 8.3 cm/sec Med Peak E' Johanyn: 3.7 cm/sec MV A max johanny: 96.2 cm/sec E/E' lat: 12.6 E/E' med: 28.2 MV E/A: 1.1 Ao V2 max: 134.4 cm/sec AI max johanny: 454.9 cm/sec LV V1 max: 84.5 cm/sec Ao max P.2 mmHg AI max P.8 mmHg LV V1 max P.9 mmHg Ao V2 mean: 92.0 cm/sec AI dec slope: 393.4 cm/sec2 Ao mean P.7 mmHg AI P1/2t: 338.7 msec Ao V2 VTI: 24.0 cm PA V2 max: 93.0 cm/sec PI end-d johanny: 209.5 cm/sec TR max johanny: 373.0 cm/sec TR max P.7 mmHg Interpretation Summary Mildly dilated left ventricle. The estimated ejection fraction is 25 %. There is severe global hypokinesis of the left ventricle. Moderate (2+) mitral valve insufficiency. Mild to moderate (1-2+) tricuspid valve insufficiency. Right ventricular systolic pressure estimated to be 61 mmHg. Severe pulmonary hypertension. Mild (1+) aortic valve insufficiency. Mildly dilated right ventricle. Compared to echo report dated 08/31/2017, LV function has gone from 45% to 25%, and RVSP has worsened from 25 to 65 mm Hg. Ordering Physician: Carmen Hogan Referring Physician: Ramo Moreira Performed By: Yael Atkinson, ALETHEA, RVT 11/08/17 145 Date Jayy Sanford MD CC: Carmen Hogan; Ross Ackerman MD; Ramo Moreira III, MD Date Dictated: 11/08/17821 Date Transcribed: 11/08/171455 Button Puncher: Signed PARTIAL THROMBOPLAST Collected: 11/08/2017 Status: F Source: [place] TIME 1:30 PM [facility] REPOSITORY TYPE CODE TESTS RESULT OUT OF REFERENCE UNITS RANGE LAB L300.4310 24.1-36.2 Seconds High PTT 77.5 Performed By: #### L300.4310 #### [facility] [address] [place], [address] BEDSIDE GLUCOSE Collected: 11/08/2017 Status: F Source: [place] 12:25 PM [facility] REPOSITORY TYPE CODE TESTS RESULT OUT OF RANGE REFERENCE UNITS LAB L501.080 70-110 mg/dL Normal BEDSIDE GLU 99 Result Comment: MANAGEMENT OF PATIENT CARE PER NURSING PROTOCOL Performed By: #### L501.080 #### [facility] Point of Care [address] [place] [address] CONSULTATION Observed: 11/08/2017 Status: F Source: [place] 10:15 AM [facility] REPOSITORY [facility] Medical Records Department [address] [place] [address] Consultation 11/08/17 0846 MR#: [id number] Acct: [id number] Name: ANGIE DIXON Rep #: [id number] : 1945 72 From: Pablo Khan MD PCP: Ramo Moreira III, MD Status: ADM IN Y Location: ICU [id number] Problem List (1) NSTEMI (non-ST elevated myocardial infarction) Status: Acute (2) CAD (coronary artery disease) Status: Chronic (3) S/P PTCA (percutaneous transluminal coronary angioplasty) Status: Chronic (4) History of coronary artery bypass graft x 3 Status: Chronic Comment: CHARLES to LAD, SVG to RCA and SVG to CX per Dr. 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 (10) CKD (chronic kidney disease), stage IV Status: Chronic Reason for Consult Date of Consultation: 11/08/17 History of Present Illness: The patient is a 72 year old white male with a past cardiovascular history which has included underlying CAD, PCI, CABG, ischemic cardiomyopathy, s/p recent primary prevention ICD therapy, hyperlipidemia, hypertension, diabetes mellitus, chronic renal insufficiency who is referred for evaluation of chest discomfort concerning for unstable angina pectoris and findings compatible with an acute non-ST segment elevation OK-based on cardiac enzymes and ECG changes. The patient states he has had recurrent chest discomfort radiating towards his back is similar to what he has had in the past when he is undergone coronary artery revascularization therapy. He states this is occurred with minimal activity and now at rest. It does not necessarily radiate to his jaw neck or upper extremities. He may be somewhat short of breath and dyspneic with as well as somewhat nauseated. He has not had overt emesis. He does not recall becoming diaphoretic. He has not lost consciousness. He presented to the emergency department for further evaluation. He was noted to have indeterminate troponin I levels and ECG changes. In the past his ECG appeared to demonstrate a left bundle branch block pattern. His recent ECG did not demonstrate a left bundle branch block pattern but did demonstrate ST and T wave changes in the inferolateral leads concerning for myocardial ischemia. He was treated medically with nitrates. He states that did help. He was subsequently placed on IV heparin and placed in the ICU for further evaluation and care. He states overall he is felt somewhat better. His cardiac enzymes have been followed and remain in the indeterminate range. His ECG was repeated and demonstrated similar type findings. Of note his creatinine level upon arrival at the hospital was elevated at 2.9. His most recent repeat creatinine level was approximately 2.7. He has denied orthopnea or PND or worsening peripheral pitting edema. He denies palpitations. There is been no near syncope or syncope. He underwent primary prevention ICD placement approximately 1 month ago at [facility]. He states his wound is healed well and his ICD has not discharged. He is also undergone previous noninvasive and invasive cardiovascular evaluation at [facility] in August of this year. Based upon his noninvasive evaluation he had a transthoracic echocardiogram that demonstrated a mildly dilated left ventricle with left ventricular regional wall motion abnormalities with an LVEF of 40-45% with mild MR trivial TR mild AI and an estimated RV systolic pressure of 25 mmHg. He underwent a submaximal stress echocardiogram. This was thought to be negative for inducible myocardial ischemia at the heart rate achieved. He underwent diagnostic cardiac catheterization on 09/06/[address] Sanford. According to the report the left ventricle was thought to be globally dysfunctional with an LVEF of 30%, the left main coronary artery had proximal 75% stenosis, the LAD was occluded, the LCx had been previously stented which was patent, the RCA was occluded, a CHARLES to the LAD was patent, and SVG to the LCx was occluded, and SVG to the right PDA was stented and patent, and there was a comment that his left main disease had significant calcification and may require rotablation therapy in the future. [] Past Medical History Allergies/Adverse Reactions: Allergies atorvastatin calcium [From Lipitor] Allergy (Verified 11/07/17 18:55) Pain in joints verapamil [From Covera-HS] Allergy (Verified 11/07/17 18:55) passes out lisinopril Adverse Reaction (Verified 11/07/17 18:55) Other muscle pain Niacin Preparations Adverse Reaction (Verified 11/07/17 18:55) Pain in joints Cholesterol Meds Adverse Reaction (Uncoded 11/07/17 18:55) Other Home Medications: Ambulatory Orders Medication Instructions Recorded Mirtazapine [Remeron] 15 mg PO QHS 12/02/13 Doxazosin Mesylate [Cardura] 2 mg PO QHS 01/30/15 Past Medical History (Chronic Problems): Chronic Problems (Last Reviewed 09/22/17 @ 08:20 by Bessy Lr) CAD (coronary artery disease) (Chronic) S/P PTCA (percutaneous transluminal coronary angioplasty) (Chronic) Implantable cardioverter-defibrillator (ICD) in situ (Chronic) Ischemic cardiomyopathy (Chronic) 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 Buitrago @ [facility] History of left heart catheterization (Chronic 09/06/17) Atherosclerotic heart disease of [place] coronary artery with other forms of angina pectoris (Chronic) DM2 (diabetes mellitus, type 2) (Chronic) CKD (chronic kidney disease), stage IV (Chronic) History of pulmonary embolism (Chronic) Provoked History of hypertension (Chronic) History of hyperlipidemia (Chronic) History of gout (Chronic) 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) Surgical History: - - History of ruptured bowel status post colostomy, PCI, CABG, appendectomy, hernia repair. Psychiatric History: Anxiety, Depression - *Family History Sibling Family History: Family History (Last Reviewed 09/22/17 @ 08:20 by Bessy Lr) Unknown No problems noted. History Items: Diabetes, Heart Disease Maternal Family History: Family History (Last Reviewed 09/22/17 @ 08:20 by Bessy Lr) Unknown No problems noted. History Items: Heart Disease Paternal Family History: Family History (Last Reviewed 09/22/17 @ 08:20 by Bessy Lr) Unknown No problems noted. History Items: Heart Disease Lives: Spouse/ Significant Other Smoking Status: Former smoker Tobacco Use: Non-smoker Alcohol: None Drugs: None Review of Systems - Review of Systems General: Denies: Fever, Night Sweats, Fatigue Cardiovascular: Reports: Chest Discomfort, Chest Discomfort at Rest, Chest Pressure, Shortness of Breath. Denies: Orthopnea, PND, Peripheral Edema, Palpitations, Lightheadedness, Dizziness, Near Syncope, Syncope Respiratory: Reports: Shortness of Breath Gastrointestinal: Reports: Nausea, - - Belching. Denies: Hematemesis, Hematochezia, Melena Genitourinary: Denies: Dysuria, Hematuria Skin: Denies: Rash Subjectve: Is a 72-year-old white male who appears to be resting comfortably at the moment in no acute distress. Objective: Vital Signs Temp Pulse Resp BP Pulse Ox 97.9 F 93 12 169/90 H 94 11/08/17 08:00 11/08/17 08:00 11/08/17 08:00 11/08/17 08:00 11/08/17 08:00 Oxygen Flow Rate (L/min) 1 Oxygen Delivery Method Room Air Weight: 138 lb 14.259 oz Body Mass Index (BMI) 21.6 Intake and Output for Last 24 Hours Intake Total 429 / 429 Output Total 250 / 250 Balance 179 / 179 General: Awake, Alert, Oriented x 3, Cooperative, No Acute Distress HEENT: Atraumatic, Normocephalic, PERRL, EOMI, Sclera Non Icteric Oral: Moist Mucosa Neck: Supple, Good ROM, No JVD Chest Wall: Midline Sternotomy Incision, Left Pectoral Incision Lungs: Clear to auscultation Cardiovascular: Regular Rhythm, Premature Ectopic Beats, Normal S1, Normal S2 Vascular: No Carotid Bruits Abdomen: Bowel Sounds Present, Soft, Non Tender Extremities: No Cyanosis, No Clubbing, No edema Neurological: No Focal Motor or Sensory Deficit Psych/Mental Status: Appropriate, Normal Affect 11/07/17 19:05: WBC 9.6, RBC 3.23 L, Hgb 10.1 L, Hct 30.4 L, MCV 94.1 H, MCH 31.3, MCHC 33.2, RDW 14.6, RDW Differential 47.9 H, Plt Count 167, MPV 11.3, Immature Gran % (Auto) 0.200, Neut % (Auto) 56.9, Lymph % (Auto) 10.9 L, [place] % (Auto) 8.4, Eos % (Auto) 22.6 H, Baso % (Auto) 1.0, Absolute Neuts (auto) 5.5, Total Counted Not Reportable 11/07/17 19:05: Sodium 136, Potassium 3.9, Chloride 105, Carbon Dioxide 20.0 L, Anion Gap 11, BUN 43 H, Creatinine 2.99 H, Est GFR (MDRD) Af Amer 27 L, Est GFR (MDRD) Non-Af 22 L, BUN/Creatinine Ratio 14.4, Glucose 236 H, Calcium 8.8, Troponin I 0.469 H 11/07/17 19:05: APTT 30.1 11/07/17 19:05: Magnesium 2.2 11/07/17 23:50: Troponin I 0.485 H 11/08/17 04:05: WBC 7.9, RBC 2.92 L, Hgb 9.0 L, Hct 27.0 L, MCV 92.5, MCH 30.8, MCHC 33.3, RDW 15.0 H, RDW Differential 50.6 H, Plt Count 141 L, MPV 11.0 11/08/17 04:05: Sodium 142, Potassium 3.7, Chloride 111 H, Carbon Dioxide 21.0, Anion Gap 10, BUN 41 H, Creatinine 2.72 H, Est GFR (MDRD) Af Amer 30 L, Est GFR (MDRD) Non-Af 25 L, BUN/Creatinine Ratio 15.1, Glucose 93, Calcium 8.5, Triglycerides 78, Cholesterol 219 H, LDL Cholesterol 156 H, VLDL Cholesterol 16, HDL Cholesterol 47 11/08/17 04:05: Troponin I 0.473 H 11/08/17 04:05: APTT Cancelled 11/08/17 05:00: APTT 246.8 H* Rhythm: sinus rhythm EKG: As noted above ECHO: As noted above Stress Test: As noted above Cardiac Cath: As noted above CXR: Pulmonary evaluation: Post open heart surgery changes: Post ICD placement changes: No acute cardiopulmonary disease process appreciated: Please see official report Assessment/Plan 1. Non-ST segment elevation OK The patient presents with findings compatible with an acute non-ST segment elevation OK. His cardiac enzymes and ECGs have been abnormal. He has been treated medically. He appears to be resting comfortably at the moment. He will continue to be followed. His noninvasive studies can be reassessed as deemed appropriate with respect to his laboratory studies, ECGs, etc. An echocardiogram has been requested to reassess his left ventricular wall motion and systolic function. However ideally he would be considered for repeat diagnostic cardiac catheterization which may lead to further catheter based revascularization therapy of his left coronary artery system with respect to the left main coronary artery system, etc. There is concern in proceeding in this manner based upon his chronic renal insufficiency. Thus this would be a high risk procedure that would need to be performed at a tertiary care center. 2. CAD status post PCI status post CABG The patient has had revascularization therapy in the past both catheter-based and surgical base. His most recent noninvasive and invasive studies are as described above. At the present time he will continue to be monitored. He will continue medical therapy. He will be considered for transfer for a tertiary care center evaluation for high risk coronary artery revascularization therapy with close follow-up of his underlying renal insufficiency. 3. Ischemic mediated cardiomyopathy The patient does have an underlying ischemic mediated cardiomyopathy. He is without symptoms of acute CHF at the present time. He will continue medical management. His overall LV systolic function can be reassessed with an echocardiographic study. 4. Status post ICD The patient has a primary prevention ICD placed at [facility] on 10/05/2017. His incision site appears to be healing well. It has been reported as functioning appropriately. He has had no discharge. 5. Hyperlipidemia He will continue lipid-lowering therapy. 6. Hypertension His blood pressure can be monitored. He will continue medical management. 7. Diabetes mellitus He will need to continue to be cared for by internal medicine. 8. Chronic renal insufficiency He is at increased risk for progressive renal insufficiency with IV contrast related studies. Thus, he may need nephrology input during his evaluation and care. Comment: The patients case was discussed with his primary spice miller, Dr. Sanford. S/P review of the case he recommended transfer to a tertiary care center for high risk coronary artery evaluation / intervention. He arranged for the patient to be transferred to [facility] for further evaluation and care. Comment: The patients case has also been discussed with Dr. Ackerman. This note was generated using a voice recognition system and there may be incorrect words, spelling or punctuation that were not noted when reviewing the office note prior to saving. 11/08/17 1015 <Electronically signed by Pablo Khan MD> Date Pablo Khan MD Cosigner Signature (if applicable): Date CC: Jayy Sanford MD; Ramo Moreira III, MD; Pablo Khan MD Signed DISCHARGE SUMMARY Observed: 11/08/2017 Status: F Source: [place] 10:05 [facility] REPOSITORY [facility] Medical Records Department [address] [place] [address] Discharge Summary 11/08/17 1002 MR#: [id number] Acct: [id number] Name: ANGIE DIXON Rep #: [id number] : 1945 72 From: Ross Ackerman MD PCP: Ramo Moreira III, MD Status: ADM IN Y Location: ICU [place] [address] Discharge Date and Diagnosis - Problem List Patient Problems: Active and Suspected Problems (Last Updated 10/13/17 @ 15:46 by Nat Persaud) Chest pain (Acute) NSTEMI (non-ST elevated myocardial infarction) (Acute) Date of Admission: 11/07/17 Date of Discharge: 11/08/17 - Primary Discharge Diagnosis Active and Suspected Problems (Last Updated 10/13/17 @ 15:46 by Nat Persaud) Chest pain (Acute) NSTEMI (non-ST elevated myocardial infarction) (Acute) - Secondary Discharge Diagnosis Chronic Problems (Last Reviewed 09/22/17 @ 08:20 by Bessy Lr) CAD (coronary artery disease) (Chronic) S/P PTCA (percutaneous transluminal coronary angioplasty) (Chronic) Implantable cardioverter-defibrillator (ICD) in situ (Chronic) Ischemic cardiomyopathy (Chronic) 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 Buitrago @ [facility] History of left heart catheterization (Chronic 09/06/17) Atherosclerotic heart disease of [place] coronary artery with other forms of angina pectoris (Chronic) DM2 (diabetes mellitus, type 2) (Chronic) CKD (chronic kidney disease), stage IV (Chronic) History of pulmonary embolism (Chronic) Provoked History of hypertension (Chronic) History of hyperlipidemia (Chronic) History of gout (Chronic) 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) Hospital Course and Treatment Imaging Results: Impressions Chest X-Ray 11/07/17 18:56 IMPRESSION: There are no acute findings. Electronically Signed: Shai Heredia MD at 19:12 EDT , Service support , 11/07/17 18:56 Chest 1 View (Portable) [RAD] Stat Laboratory Results WBC 9.6 (4.4-11.0) K/mm3 RBC 3.23 L (4.6-6.2) M/mm3 Hgb 10.1 L (13.0-16.5) g/dl Hct 30.4 L (40-54) % WBC (4.4-11.0) K/mm3 RBC (4.6-6.2) M/mm3 Hgb (13.0-16.5) g/dl Hct (40-54) % MCV (80-94) fL WBC 7.9 (4.4-11.0) K/mm3 RBC 2.92 L (4.6-6.2) M/mm3 WBC (4.4-11.0) K/mm3 RBC (4.6-6.2) M/mm3 Hgb (13.0-16.5) g/dl Hct (40-54) % MCV (80-94) fL WBC (4.4-11.0) K/mm3 Operations: None Summary of Care Provided: Patient is a 72-year-old gentleman with known CAD who presented with chest pain with elevated troponin an assessment of acute non-ST OK made. Patient admitted to the intensive care unit with consultation placed to cardiology 1. Acute non-STEMI: Patient has been admitted to the intensive care unit managed per protocol with systemic anticoagulation with heparin dual antiplatelet with aspirin and Plavix, hydralazine (patient is allergic to KIRTI inhibitors and statins) with consultation placed to cardiology Case was discussed with Dr. Sanford the general hardware salesperson who recommended and arranged for patient to be transferred to [facility] for intervention involving his calcified left main disease 2. CAD with previous CABG and stents placement; left heart catheterization on 09/08/17 admission demonstrated occluded SVG graft to OM, patent SVG graft to RCA, patent CHARLES to LAD, patent LCx stents and possibly significant proximal LAD disease, optimization of medical therapy advised 3. 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 Hypertension-blood pressure controlled, home medications continued with dose adjustment as needed 5. Diabetes mellitus type II: Complications including diabetic nephropathy. Placed on long acting insulin, Accu-Cheks a.c. and at bedtime and covered with sliding scale insulin 6. Ischemic cardiomyopathy status post AICD placement 7. Depression with anxiety ; patient on Effexor 8. Anemia secondary to anemia of chronic disorder monitoring H AND H with plan to transfuse the patient became symptomatic or hemoglobin fell below 7 9. GERD on PPI 10. DVT prophylaxis on heparin Exams at the time of discharge: GENERAL: cooperative HEENT: Atraumatic moist oral mucosa EYES; Anicteric, Normal Conjuctiva NECK; supple, normal thyroid, no distended JVD. RESPIRATORY: Clear to auscultation bilaterally, CARDIOVASCULAR: Regular S1 S2, no audible murmurs GI: soft, non-tender, normoactive bowel sounds, : No Renal angle tenderness; No germain NEURO: Awake; no lateralizing signs. SKIN: No Rash PSYCH; Normal affect Home Medications: Medications to take at Discharge Mirtazapine [Remeron] 15 mg PO QHS 12/02/13 Doxazosin Mesylate [Cardura] 2 mg PO QHS 01/30/15 Insulin Glargine,Hum.rec.anlog [Lantus] 14 unit SQ BREAKFAST 08/20/15 Clopidogrel Bisulfate [Plavix] 75 mg PO DAILY #0 12/04/15 Isosorbide Mononitrate [Imdur] 60 mg PO DAILY #30 tab 09/01/17 Carvedilol [Coreg (Beta Pedro)] 25 mg PO BID #90 tab 09/08/17 Allopurinol 200 mg PO DAILY 11/07/17 Aspirin E.C. [Ecotrin] 81 mg PO DAILY 11/07/17 Slow Release Iron 45 mg PO DAILY 11/07/17 Sucralfate [Carafate] 1 tab PO 4X/DAY 11/07/17 Venlafaxine HCl [Venlafaxine HCl ER] 150 mg PO DAILY 11/07/17 hydrALAZINE [Apresoline] 50 mg PO BID 11/07/17 Primary Care Physician: Ramo Moreira III, MD [Primary Care Provider] - Disposition: [facility] Minutes spent on discharge:: 35 Patient Condition:: Stable Medical Necessity - Tobacco Use Smoking Status: Former smoker Tobacco Use: Non-smoker Meaningful Use Info Meaningful Use Diagnoses (Choose all that apply): AMI - AMI Aspirin given w/in 24hrs of arrival?: Yes ASA at discharge?: Yes Statins at discharge?: No Reason statins not ordered:: Allergy Kirti/ARB at discharge?: No Reason Kirti/ARB not ordered:: Worsening renal dysfunctn Beta Pedro at discharge?: Yes Done w/ Acute OK measure.: Yes Code Visit Inpatient E AND M: [id number] Disch Hosp 11/08/17 1005 <Electronically signed by Ross Ackerman MD> Date Ross Ackerman MD Cosigner Signature (if applicable): Date CC: Ross Ackerman MD; Ramo Moreira III, MD Signed DISCHARGE INSTRUCTION Observed: 11/08/2017 Status: F Source: [place] 10:02 AM [facility] REPOSITORY [facility] Medical Records Department [address] [place] [address] Instructions for Home/Discharge Instructions 11/08/17 1001 MR#: [id number] Acct: [id number] Name: ANGIE DIXON Rep #: [id number] : 1945 72 From: Ross Ackerman MD PCP: Ramo Moreira III, MD Status: ADM IN - Discharge Diagnoses Current Active Problems: Current Active and Chronic Problems (Last Reviewed 09/22/17 @ 08:20 by Bessy Lr) Chest pain (Acute) NSTEMI (non-ST elevated myocardial infarction) (Acute) CAD (coronary artery disease) (Chronic) S/P PTCA (percutaneous transluminal coronary angioplasty) (Chronic) You will use the following diet at home:: Cardiac Allergies/Adverse Reactions: Allergies atorvastatin calcium [From Lipitor] Allergy (Verified 11/07/17 18:55) Pain in joints verapamil [From Covera-HS] Allergy (Verified 11/07/17 18:55) passes out lisinopril Adverse Reaction (Verified 11/07/17 18:55) Other muscle pain Niacin Preparations Adverse Reaction (Verified 11/07/17 18:55) Pain in joints Cholesterol Meds Adverse Reaction (Uncoded 11/07/17 18:55) Other Medications to take at Discharge Mirtazapine [Remeron] 15 mg PO QHS 12/02/13 Doxazosin Mesylate [Cardura] 2 mg PO QHS 01/30/15 Insulin Glargine,Hum.rec.anlog [Lantus] 14 unit SQ BREAKFAST 08/20/15 Clopidogrel Bisulfate [Plavix] 75 mg PO DAILY #0 12/04/15 Isosorbide Mononitrate [Imdur] 60 mg PO DAILY #30 tab 09/01/17 Carvedilol [Coreg (Beta Pedro)] 25 mg PO BID #90 tab 09/08/17 Allopurinol 200 mg PO DAILY 11/07/17 Aspirin E.C. [Ecotrin] 81 mg PO DAILY 11/07/17 Slow Release Iron 45 mg PO DAILY 11/07/17 Sucralfate [Carafate] 1 tab PO 4X/DAY 11/07/17 Venlafaxine HCl [Venlafaxine HCl ER] 150 mg PO DAILY 11/07/17 hydrALAZINE [Apresoline] 50 mg PO BID 11/07/17 Primary Care Physician: Ramo Moreira III, MD [Primary Care Provider] - Test Results: Test results from this visit will be discussed in further detail at your follow-up appointment, if applicable. Proposed Discharge Date: 11/08/17 11/08/17 1002 <Electronically signed by Ross Ackerman MD> Date Ross Ackerman MD CC: Ramo Moreira III, MD; Pablo Khan MD BEDSIDE GLUCOSE Collected: 11/08/2017 Status: F Source: [place] 6:47 AM [facility] REPOSITORY TYPE CODE TESTS RESULT OUT OF RANGE REFERENCE UNITS LAB L501.080 70-110 mg/dL Normal BEDSIDE GLU 88 Result Comment: MANAGEMENT OF PATIENT CARE PER NURSING PROTOCOL Performed By: #### L501.080 #### [facility] Laboratory Point of Care [address] [place], [place] [address] PARTIAL THROMBOPLAST Collected: 11/08/2017 Status: F Source: [place] TIME 5:00 AM [facility] REPOSITORY Order Comment: REDRAW. PREVIOUS SPECIMEN REJECTED DUE TO QNS. 11/08/17 0424 Beatrice Stark. TYPE CODE TESTS RESULT OUT OF REFERENCE UNITS RANGE LAB L300.4310 24.1-36.2 Seconds High alert PTT 246.8 Result Comment: CRITICAL VALUE VERIFIED. CALLED TO [facility] ICU 11/08/17 0538 Beatrice Stark. RESULTS READ BACK BY SAME . Performed By: #### L300.4310 #### [facility] [address] [place], [place], [address] TROPONIN-I Collected: 11/08/2017 Status: F Source: [place] 4:05 AM [facility] REPOSITORY Order Comment: 'TROP' Serial specimen #1, #2 or #3: 3 'TROP' Serial specimen #1, #2, #3, or #4: 3 TYPE CODE TESTS RESULT OUT OF RANGE REFERENCE UNITS LAB L501.4010 <0.045 ng/mL High 0.473 TROPONIN-I Result Comment: TROPONIN-I EXPECTED VALUES <0.045 Negative 0.045 - 0.590 Consistent with Cardiac Damage > OR = 0.600 Critical Value Not every elevated troponin is indicative of OK. These values should be used with clinical judgement in examining the patient's clinical picture for diagnosis. To establish a diagnosis of OK versus myocardial injury, there must be a demonstrated rise and/or fall in the troponin values, in addition to ischemic symptoms, EKG changes, new regional wall motion abnormality, and/or angiographical evidence. PLEASE NOTE: REFERENCE RANGES EDITED 17 Performed By: #### L501.4010 #### [facility] [address] [place], [place], [address] CBC-COMPLETE BLOOD CNT Collected: 11/08/2017 Status: F Source: [place] NO DIFF 4:05 AM [facility] REPOSITORY TYPE CODE TESTS RESULT OUT OF RANGE REFERENCE UNITS LAB L100.1000 4.4-11.0 K/mm3 Normal WBC 7.9 LAB L100.1200 4.6-6.2 M/mm3 Low RBC 2.92 LAB L100.1300 13.0-16.5 g/dl Low HGB 9.0 LAB L100.1400 40-54 % Low HCT 27.0 LAB L100.1500 80-94 fL Normal MCV 92.5 LAB L100.1600 27.0-32.0 pg Normal MCH 30.8 LAB L100.1700 32-36 g/gl Normal MCHC 33.3 LAB L100.1810 11.6-14.6 % High RDW CV 15.0 LAB L100.1820 35.1-43.9 fl High RDW SD 50.6 LAB L100.1900 150-450 K/mm3 Low PLT 141 LAB L100.2000 6.2-12.0 fl Normal MPV 11.0 Performed By: #### L100.0500 #### [facility] [address] [facility] [address] [address] [place], [place], [address] BASIC METABOLIC Collected: 11/08/2017 Status: F Source: [place] PROFILE (BMP) 4:05 AM [facility] REPOSITORY TYPE CODE TESTS RESULT OUT OF RANGE REFERENCE UNITS LAB L501.0100 74-106 mg/dL Normal GLU 93 Result Comment: Please note revised GLUCOSE reference range effective 2017. LAB L501.1000 7-18 mg/dL High BUN 41 LAB L501.1100 0.70-1.30 mg/dL High CREAT,SERUM 2.72 Result Comment: The validity of the calculated GFR AND GFRAA in patients over 70 years has not been determined. Clinical correlation is essential. LAB L501.1110 >60 mL/min Low EST GFR 25 Result Comment: Non- GFR Calc LAB L501.1115 >60 mL/min Low EST GFR - AA 30 Result Comment: GFR Calc LAB L501.1255 ml/min Normal Estimated CRCL 21.45 LAB L501.1300 10-20 RATIO Normal BUN/CRE 15.1 LAB L501.2200 8.5-10 mg/dL Normal .1 CA 8.5 LAB L501.5300 136-14 mmol/L Normal 5 NA 142 LAB L501.5600 3.5-5. mmol/L Normal 1 K 3.7 LAB L501.5900 98-107 mmol/L High CL 111 LAB L501.6100 21.0-3 mmol/L Normal 2.0 CO2 21.0 LAB L501.6200 5-15 Normal GAP 10 Performed By: #### L500.2500, L500.4100 #### [facility] [address] [place], [address] LIPID PROFILE Collected: 11/08/2017 Status: F Source: [place] 4:05 AM [facility] REPOSITORY TYPE CODE TESTS RESULT OUT OF RANGE REFERENCE UNITS LAB L501.4900 200 mg/dL High CHOL 219 Result Comment: <200 mg/dL Desirable 200-240 mg/dL Borderline >240 mg/dL High Risk LAB L501.5000 mg/dL Normal TRIG 78 Result Comment: The drugs N-Acetylcysteine and Metamizole may falsely depress this assay. Serum Triglycerides Reference Interval Normal <150 mg/dL Borderline high 150 - 199 mg/dL High 200 - 499 mg/dL Very High > or = 500 mg/dL LAB L501.6400 mg/dL Normal HDL 47 Result Comment: The drugs N-Acetylcysteine and Metamizole may falsely depress this assay. Reference Range HDL <40 mg/dL Low HDL Cholesterol HDL >or= 60 mg/dL High HDL Cholesterol LAB L501.6500 0-130 mg/dL High LDL 156 LAB L501.6600 5-40 mg/dL Normal VLDL 16 Performed By: #### L500.2500, L500.4100 #### [facility] [address] [place], [address] CRP, HIGH SENSITIVITY Collected: 11/08/2017 Status: F Source: [facility] 4:05 AM [place] [facility] REPOSITORY Order Comment: ADD ON TYPE CODE TESTS RESULT OUT OF RANGE REFERENCE UNITS LAB L501.6750 mg/L High CRP HIGH 8.14 SENS Result Comment: Low Relative Risk of CVD <1.0 mg/L Average Relative Risk of CVD 1.0 - 3.0 mg/L High Relative Risk of CVD >3.0 mg/L Performed By: #### L501.6750 #### [facility] [address] [place], [address] HOSP Observed: 11/08/2017 Status: COMPLETED Source: [facility]IN[facility] 12:00 AM CLINIC OTHER CAMPUS REPOSITORY Patient:Angie Dixon MRN: <[id number]> Height:5' 7(1.702 m) Weight:170 lb (77.111 kg) Outpatient Medications as of 11/09/17: ferrous sulfate (IRON, FERROUS SULFATE,) 325 mg (65 mg iron) tablet diltiazem (CARDIZEM) 120 mg tablet sucralfate (CARAFATE) 1 gram tablet furosemide (LASIX) 20 mg tablet carvedilol (COREG) 25 mg tablet hydrALAZINE (APRESOLINE) 50 mg tablet isosorbide mononitrate ER (IMDUR) 60 mg 24 hr tablet allopurinol (ZYLOPRIM) 100 mg tablet venlafaxine (EFFEXOR) 75 mg tablet insulin glargine (LANTUS SOLOSTAR U-100 INSULIN) 100 unit/mL (3 mL) inpn doxazosin (CARDURA) 4 mg tablet clotrimazole-betamethasone (LOTRISONE) cream Insulin [place], Disposable, (PEN NEEDLE) 29 gauge X 1/2 ndle aspirin, enteric coated (ASPIR-LOW) 81 mg EC tablet clopidogrel (PLAVIX) 75 mg tablet mirtazapine 15 mg tablet Admission/Clinic Administered Medications as of 9/27/18: NaCl 0.9% iv infusion heparin 1,000 Units in D5W 250 mL heparin 3,000 Units in NaCl 0.9% 500 mL irrigation mirtazapine 15 mg (REMERON) clopidogrel 75 mg tab(s) (PLAVIX) aspirin, enteric coated 81 mg tab(s) allopurinol 100 mg tab(s) (ZYLOPRIM) insulin glargine 14 Units pen (long acting) (LANTUS SOLOSTAR, BASAGLAR KWIKPEN) doxazosin 4 mg tab(s) (CARDURA) carvedilol 25 mg tab(s) (COREG) hydrALAZINE 50 mg tab(s) (APRESOLINE) isosorbide mononitrate ER 60 mg tab(s) (IMDUR) furosemide 40 mg tab(s) (LASIX) sucralfate 1 g tab(s) (CARAFATE) ferrous sulfate 325 mg tab(s) 0.9% NaCl 2-10 mL nitroglycerin sublingual 0.4 mg tab(s) (NITROQUICK) atropine 0.4 mg injection dextrose 40 % 15 g glucagon 1 mg injection (GLUCAGEN) dextrose 50% in water 25 mL syringe heparin iv infusion (LOW DOSE ACS/NOMOGRAM) 25,000 units in NaCl 0.45% 250 mL PREMIX heparin RATE CHANGE bolus 1,000-4,000 Units for subtherapeutic aptt results diltiazem CD 120 mg cap(s) (CARDIZEM CD, CARTIA XT) venlafaxine ER 150 mg cap(s) (EFFEXOR XR) Problem List: Essential hypertension, benign [I10] Unequal leg length (acquired) [M21.70] Coronary atherosclerosis [I25.10] Gout [M10.9] Benign prostatic hyperplasia with urinary obstruction [N40.1, N13.8] Chronic depression [F32.9] Atherosclerosis of [place] coronary artery of [place] heart with angina pectoris (HCC) [I25.119] Hyperlipidemia LDL goal <100 [E78.5] 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] Type 2 diabetes mellitus with stage 4 chronic kidney disease (HCC) [E11.22, N18.4] Exposure to Agent [place] [Z77.098] History of colostomy [DIL1601] History of gout [Z87.39] History of hypertension [Z86.79] History of pulmonary embolism [Z86.711] Peripheral vascular disease, unspecified ([facility]) [I73.9] NSTEMI (non-ST elevated myocardial infarction) ([facility]) [I21.4] Allergies: Atorvastatin Calcium Covera-Hs [Verapamil Hcl] Lisinopril Niaspan [Niacin] Date Verified: 11/09/17 Lab Values Lab Value Units Date High Low GAGE* 28.3 % 11/09/2017 51.0 40.1 Progress Notes (): Emily Miller, RN, RN 11/08/2017 3:43 PM Signed Patient arrived [facility], continued heparin gtt at 8ml/hr. Ross Morgan MD 11/08/2017 7:24 PM Signed HISTORY AND PHYSICAL EXAMINATION SERVICE DATE: 11/08/2017 SERVICE TIME: 4:30 PM PRIMARY CARE PHYSICIAN: Ramo Moreira III MD Subjective HPI This is a 72-year-old gentleman with a history of coronary artery disease and coronary bypass surgery in [address] Jayy Sanford from [facility]. The patient underwent catheterization in August for complaints of chest pain. He was found to have a patent CHARLES graft to the LAD a patent vein graft to the PDA branch and known occluded vein graft to the left circumflex with the circumflex stent that went from the left main into the first large obtuse marginal branch. Some ostial disease in the left main coronary artery. Patient was referred for medical therapy due to his chronic kidney disease. He presented back to the hospital today with ongoing symptoms of chest pain. He describes aching in his shoulder blade and the sharp feeling in his chest that occurs both at rest and with exertion. He's had difficulty sleeping for the past one month. He tells me he frequently will wake up at night with severe 10 out of 10 sharp aching chest pain. It'll radiate to his left jaw and to the back shoulder blades. He's had similar symptoms when he had his stents placed in 2012 and 2013. He describes aching feeling in his chest that occurs with exertion. This is similar to his nocturnal symptoms but somewhat different in the nature and intensity. He denies symptoms for CHF including PND, orthopnea, or lower extremity edema. He does not have feelings of palpitations, lightheadedness, dizziness, or syncope. He has been treated for gastroesophageal reflux disease in the past. He's been on multiple different medications with no real change in his symptoms. FUNCTIONAL STATUS: Independent 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 ([facility]) - BPH (benign prostatic hypertrophy) with urinary obstruction 07/09/2014 - CAD (coronary artery disease) - Chronic renal insufficiency - DVT of upper extremity (deep vein thrombosis) ([facility]) - Esophageal reflux - Essential hypertension, benign - Gout 04/22/2010 - Hx of CABG 3 - Iatrogenic pulmonary embolism and infarction ([facility]) - LV dysfunction - NSTEMI (non-ST elevated myocardial infarction) ([facility]) 2012 - Other and unspecified hyperlipidemia - Type 2 diabetes mellitus with stage 4 chronic kidney disease ([facility]) 06/05/2015 - Unequal leg length (acquired) PAST SURGICAL HISTORY Procedure Laterality Date - APPENDECTOMY - CABG, ARTERY-VEIN, THREE 09/2006 CABG, three grafts - COLONOSCOP W/ OR W/O BRSH SPEC 01/22/15 Colonoscopy - COLOSTOMY 2007 revision - KNEE SCOPE,DIAGNOSTIC Arthroscopy, knee - REPAIR ING HERNIA,5+Y/O,REDUCIBL 2008 Hernia repair, inguinal - STENT PLACEMENT 10/2012 Heart stent - STENT PLACEMENT 11/05/2013 2 heart stents placed at [facility] - SUTURE LRG INTEST W COLOSTOMY 09/2006 bowel perforation,iliostomy - TOTAL KNEE REPLACEMENT 11/30/2015 Dr Nguyễn - right knee FAMILY HISTORY Problem Relation Age of Onset - Stroke Mother - Stroke Father Social History Substance Use Topics - Smoking status: Former Smoker Packs/day: 3.00 Years: 3.00 Types: Cigarettes Quit date: 09/20/1971 - Smokeless tobacco: Never Used - Alcohol use No Prescriptions Prior to Admission: ferrous sulfate (IRON, FERROUS SULFATE,) 325 mg (65 mg iron) tablet Take 45 mg by mouth daily with breakfast. Disp: Rfl: diltiazem (CARDIZEM) 120 mg tablet Take 120 mg by mouth once daily. Disp: Rfl: sucralfate (CARAFATE) 1 gram tablet Take 1 tablet by mouth before meals and at bedtime. Disp: 60 tablet Rfl: 2 furosemide (LASIX) 20 mg tablet Take 2 tablets by mouth once daily. Disp: 180 tablet Rfl: 3 carvedilol (COREG) 25 mg tablet Take 25 mg by mouth twice daily with meals. Disp: Rfl: Taking hydrALAZINE (APRESOLINE) 50 mg tablet Take 50 mg by mouth twice daily. Disp: Rfl: Taking isosorbide mononitrate ER (IMDUR) 60 mg 24 hr tablet Take 60 mg by mouth once daily. Disp: Rfl: Taking allopurinol (ZYLOPRIM) 100 mg tablet Take 1 tablet by mouth once daily. For gout. Disp: 180 tablet Rfl: 3 Taking venlafaxine (EFFEXOR) 75 mg tablet Take 2 tablets by mouth once daily. Disp: 180 tablet Rfl: 3 Taking insulin glargine (LANTUS SOLOSTAR U-100 INSULIN) 100 unit/mL (3 mL) inpn Inject 14 Units subcutaneously once daily. Disp: Rfl: Taking doxazosin (CARDURA) 4 mg tablet Take 1 tablet by mouth once daily. (Patient taking differently: Take 2 mg by mouth daily at bedtime. ) Disp: 90 tablet Rfl: 3 Taking clotrimazole-betamethasone (LOTRISONE) cream Apply 1 application to affected area twice daily. Disp: 30 g Rfl: 1 Taking Insulin [place], Disposable, (PEN NEEDLE) 29 gauge X 1/2 ndle Use one needle per dose. one per day Disp: 100 Each Rfl: 3 Taking aspirin, enteric coated (ASPIR-LOW) 81 mg EC tablet Take 1 tablet by mouth once daily. Disp: Rfl: 0 Taking clopidogrel (PLAVIX) 75 mg tablet Take 1 tablet by mouth once daily. [id number] Disp: 90 tablet Rfl: 3 Taking mirtazapine 15 mg tablet Take 1 tablet by mouth daily at bedtime. Disp: Rfl: 0 Taking ALLERGIES Allergen Reactions - Atorvastatin Calcium Intolerance Joint pains - Covera-Hs [Verapami* Intolerance passed out - Lisinopril Cough - Niaspan [Niacin] Rash COMPLETE REVIEW OF SYSTEMS: Review of Systems REVIEW OF SYSTEMS PAIN ASSESSMENT: Negative for pain, history of chronic pain, or current treatment for a chronic pain condition. GENERAL: No weight loss, malaise or fevers RESPIRATORY: Negative for cough, hemoptysis, wheezing, COPD, dyspnea or shortness of breath CARDIOVASCULAR: Decreasing exercise tolerence, Shortness of breath, Hypertension, See HPI GI: Positive for abdominal discomfort He believes secondary to a history of hernia mesh, heart burn As noted in history of present illness is undergone multiple therapies. MUSCULOSKELETAL: Negative for joint pain or swelling, back pain or muscle pain PSYCH: sleep fragmented, Positive for anxiety: Patient tells me has a history of PTSD. He believes that he get some relief with his current medical therapy ENDOCRINE: Negative for cold or heat intolerance, polyuria, polydipsia and goiter NEURO: No history of headaches, syncope, paralysis, seizures or tremors Objective PHYSICAL EXAM: Physical Exam BP 141/88 Pulse 83 Temp 36.7 ?C (98.1 ?F) (Oral) Resp 19 Ht 170.2 cm (5' 7) Wt 77.1 kg (170 lb) SpO2 96% BMI 26.63 kg/m? Body mass index is 26.63 kg/m?. General: This is an anxious gentleman sitting in bed. No apparent distress. He is alert and oriented ?3. Pulmonary: Lungs are clear no Rales wheezes rhonchi. Cardiovascular: Normal S1 and S2 no murmurs rubs or gallops appreciated. Abdomen: Soft nontender nondistended positive bowel sounds. Colostomy bag noted and left lower quadrant. Extremities: Warmup perfuse distal pulses are preserved at 2+. No lower extremity edema. DATA: Diagnostic tests reviewed for today's visit: Most recent labs and imaging results. Assessment/Plan 72-year-old gentleman who presents on transfer from outside hospital with mildly elevated troponin possibly consistent with non-ST elevation microinfarction type I due to worsening obstructive coronary artery disease left main coronary artery into the left circumflex obtuse marginal branch. I reviewed his catheterization films from 2012, 2013, and from August of this year. I discussed case with Dr. Sanford. Patient has a stent in the left main. Started to tell where the stent begins in the calcification of the ostium to mid left main begins. I recommended proceeding with NATHAN evaluation of the ostium to proximal left main coronary artery for further delineation of the degree of disease versus in-stent restenosis or calcified obstruction. Options for treatment include medical therapy, versus rotational arthrectomy or laser arthrectomy. Coronary artery disease: We'll plan for cardiac catheterization with IVUS evaluation of the left main into left circumflex coronary artery. Possible rotational or laser atherectomy followed by stent placement of the ostial left main coronary artery. Ischemic cardiomyopathy: Patient has had worsening LV function. Results of echocardiogram are pending. We'll review his echocardiographic films. She is on appropriate medical therapy given his chronic kidney disease. Chronic systolic congestive heart failure in the setting of chronic kidney disease stage IV. We'll check a BNP and repeat basic metabolic panel. Newly diagnosed pulmonary hypertension on echocardiogram at [facility]: We'll check a VQ scan this evening given the risk for pulmonary embolus. If low risk intermediate risk and may consider right heart catheterization tomorrow for further evaluation of pulmonary pressures. SIGNATURE: Ross Morgan MD PATIENT NAME: Angie Dixon DATE: November 08, 2017 TIME: 7:13 PM PAGER/CONTACT #: RT Henry, Tech 11/08/2017 8:22 PM Signed RADIOLOGY SERVICE PROGRESS NOTE SERVICE DATE: 11/08/2017 SERVICE TIME: 8:21 PM PATIENT IDENTITY VERIFICATION COMPLETED USING TWO (2) METHODS: Patient confirmed name and Date of verbally. PATIENT GENDER DATA: .male ALLERGIES: Reviewed and unchanged MEDICATIONS REVIEWED: Yes PATIENT RELEVANT IMPLANT DATA REVIEWED: Not Applicable CREATININE: Creatinine Date Value Ref Range Status 10/05/2017 2.86 (A) 0.6 - 1.3 MG/DL Final 09/26/2017 2.98 (A) 0.6 - 1.3 MG/DL Final 09/14/2017 2.87 (A) 0.6 - 1.3 MG/DL Final 09/12/2016 2.68 (H) 0.73 - 1.22 mg/dL Final 06/05/2015 3.04 (H) 0.70 - 1.40 mg/dL Final 01/13/2015 2.92 (H) 0.70 - 1.40 mg/dL Final eGFR-All Other Races Date Value Ref Range Status 09/12/2016 24 . Final Comment: eGFR (Estimated GFR) Units of measure: mL/min/1.73 meters squared eGFR is derived from the reexpressed MDRD Study equation using the following parameters: serum creatinine, age, gender and race. The creatinine assay has been calibrated to be traceable to IDMS. An eGFR <60 mL/min/1.73m2 for >3 months is consistent with chronic kidney disease. Refer to KDOQI guidelines for clinical interpretation. In patients with unstable renal function, e.g. those with acute kidney injury, the eGFR may not accurately reflect actual GFR. eGFR- Date Value Ref Range Status 09/12/2016 28 Final P.O.C.T. RESULTS: N/A November 08, [address] PERFORMED: Yes. RADIOLOGIST NOTIFIED?: No CONTRAST ALLERGY: NO. PREMEDICATED: No CONTRAST: Not applicable DIABETIC PATIENT: Not applicable IV SITE: Inpatient - refer to [facility] documentation POST EXAM PIV STATUS: Left in for next appointment PROCEDURE TYPE: VQ Scan: 0.8 mCi of Tc99m DTPA was inhaled. 3 mCi of Tc99m MAA was administered IV. ADMINISTRATION TIME: 820 PATIENT DISCHARGED TO: Patient taken to IP transport area for return to RNF/ICU/ED. A Diagnostic radioactive procedure has taken place, with no further precautions necessary other than routine body substance precautions. More information regarding radiation safety can be found using this link: [email or web address] SIGNATURE: RT Henry PATIENT NAME: Angie Dixon DATE: November 08, 2017 TIME: 8:21 PM PAGER/CONTACT #: Norman Saldana APRN.CNP 11/09/2017 11:45 AM Signed PROGRESS NOTE CARDIOLOGY SERVICE SERVICE DATE: 11/09/2017 SERVICE TIME: 9:44 AM Subjective INTERIM HISTORY: Angie Dixon is a 72-year-old gentleman with a PMH significant for HTN, HLD, DMT2, PVD, and coronary artery disease s/p coronary bypass surgery in 2006 and PCI with stents in 2012 [id number]. He was transferred from [facility] where he presented with complaints of chest pain, for revascularization. He is resting in bed, no acute distress. Denies any chest pain or tightness, SOB, palpitations, dizziness, syncope, PND, or lower leg swelling. He did experience chest pressure when ambulating to the cart last evening. He states he slept well last night for the first time in days. He will undergo Right and left heart catheterization today. CARDIAC STATUS: Chest Pain: Denies at present; exertional Dyspnea: Denies Ankle Edema: None noted Arrhythmia: Sinus Rhythm, rate 85 Functional Capacity: Stable Objective PHYSICAL EXAM: Body mass index is 26.63 kg/m?. O2 Therapy: Room Air No Data Recorded Patient Vitals for the past 24 hrs: BP Temp Temp src Pulse Resp SpO2 Height Weight 11/09/17 0809 150/85 36.6 ?C (97.9 ?F) Oral 87 16 99 % - - 11/09/17 0540 148/66 36.4 ?C (97.5 ?F) Oral 86 19 96 % - - 11/09/17 0030 137/71 36.4 ?C (97.5 ?F) Oral 85 19 96 % - - 11/08/17 2050 148/75 36.4 ?C (97.5 ?F) Oral 90 19 97 % - - 11/08/17 1756 - 36.7 ?C (98.1 ?F) Oral - - - - - 11/08/17 1557 - - - - - - 170.2 cm (5' 7) 77.1 kg (170 lb) 11/08/17 1545 141/88 - - 83 19 96 % - - Pleasant, comfortable, not in acute distress. Awake, alert, oriented times 3. Moves all extremities. SKIN: No rash or lumps. HEENT: Normocephalic, face symmetrical. NECK: Supple, no JVD, no thyromegaly. LUNGS: Clear to auscultation bilaterally. No wheezes. CARDIAC: PMI present, RRR, S1 and S2, no S3 or S4, no additional heart sounds or murmurs. ABDOMEN: Soft, nontender, bowel sounds present. Colostomy bag LLQ. EXTREMITIES: No edema. PULSES: Peripheral pulses present. MEDICATIONS: Current hospital medications: NaCl 0.9% iv infusion 75 mL/hr INTRAVENOUS CONTINUOUS heparin 1,000 Units in D5W 250 mL 1,000 Units INTRA-ARTERIAL ONE TIME heparin 3,000 Units in NaCl 0.9% 500 mL irrigation 3,000 Units IRRIGATION ONE TIME mirtazapine 15 mg (REMERON) 15 mg ORAL AT BEDTIME clopidogrel 75 mg tab(s) (PLAVIX) 75 mg ORAL DAILY aspirin, enteric coated 81 mg tab(s) 81 mg ORAL DAILY allopurinol 100 mg tab(s) (ZYLOPRIM) 100 mg ORAL DAILY insulin glargine 14 Units pen (long acting) (LANTUS SOLOSTAR, BASAGLAR KWIKPEN) 14 Units SUBCUTANEOUS DAILY doxazosin 4 mg tab(s) (CARDURA) 4 mg ORAL DAILY carvedilol 25 mg tab(s) (COREG) 25 mg ORAL BID w MEALS hydrALAZINE 50 mg tab(s) (APRESOLINE) 50 mg ORAL BID isosorbide mononitrate ER 60 mg tab(s) (IMDUR) 60 mg ORAL DAILY (6 AM) furosemide 40 mg tab(s) (LASIX) 40 mg ORAL DAILY sucralfate 1 g tab(s) (CARAFATE) 1 g ORAL AC and HS ferrous sulfate 325 mg tab(s) 325 mg ORAL DAILY WITH BREAKFAST 0.9% NaCl 2-10 mL 2-10 mL INTRAVENOUS q 12 H nitroglycerin sublingual 0.4 mg tab(s) (NITROQUICK) 0.4 mg SUBLINGUAL q 5 MIN PRN atropine 0.4 mg injection 0.4 mg INTRAVENOUS PRN(NO DISPENSE) dextrose 40 % 15 g 15 g ORAL PRN glucagon 1 mg injection (GLUCAGEN) 1 mg INTRAMUSCULAR PRN dextrose 50% in water 25 mL syringe 12.5 g INTRAVENOUS PRN heparin iv infusion (LOW DOSE ACS/NOMOGRAM) 25,000 units in NaCl 0.45% 250 mL PREMIX 0-3,000 Units/hr INTRAVENOUS CONTINUOUS heparin RATE CHANGE bolus 1,000-4,000 Units for subtherapeutic aptt results 1,000-4,000 Units INTRAVENOUS PRN diltiazem CD 120 mg cap(s) (CARDIZEM CD, CARTIA XT) 120 mg ORAL DAILY venlafaxine ER 150 mg cap(s) (EFFEXOR XR) 150 mg ORAL DAILY WITH BREAKFAST DATA: Diagnostic tests reviewed for today's visit: Most recent labs and imaging results. 11/08/2017 VQ Scan: IMPRESSION: SCINTIGRAPHIC FINDINGS MOST CONSISTENT WITH A LOW PROBABILITY FOR PULMONARY EMBOLISM IN THE ABSENCE OF AN ACTIVE PARENCHYMAL INFILTRATE ON CHEST X-RAY. 11/08/2017 CXR: IMPRESSION: ? No acute radiographic abnormality. Past 72 Hour Labs: Recent Labs 11/09/17 0815 11/09/17 0045 11/08/17 1804 TROPI -- 0.332* 0.385* WBC -- 8.79 9.06 RBC -- 2.98* 3.29* HB -- 9.2* 10.1* HCT -- 28.3* 31.5* MCV -- 95.0 95.7* MCH -- 30.9 30.7 MCH -- 32.5 32.1* PLT -- 151 170 MPV -- 11.4 11.3 PTSEC -- -- 10.8 APTT 79.9* 41.3* 38.1* INR -- -- 0.98 Last Lab Drawn: Triglyceride 184 11/09/2017 HDL Cholesterol 46 11/09/2017 LDL Chol, Glenn 152 11/09/2017 Cholesterol, Total 235 11/09/2017 Assessment/Plan NSTEMI (non-ST elevated myocardial infarction) (HCC) POA: Yes 72 year old gentleman with previous known coronary artery disease s/p CABG (CHARLES to LAD, SVG to PDA, SVG to LCX ) in 2006. Last heart catheterization 09/08/2017 He was found to have a patent CHARLES graft to the LAD a patent vein graft to the PDA branch and known occluded vein graft to the left circumflex with the circumflex stent that went from the left main into the first large obtuse marginal branch and some ostial disease in the left main coronary artery. -Denies any chest pain at present, did have some on exertion last evening -Troponin peak 0.48 at [place] -Will have [facility] today, IVUS evaluation of LM into LCX, possible rotational laser atherectomy. Educated on procedure and post-procedure, including activity, restrictions, medications, and follow up. Risk, benefit, and alternative to cardiac catheterization +/- PCI with possible need for prolonged dual antiplatelet therapy were discussed with patient. Acknowledging risk and benefit (including , OK, CVA, urgent CABG, renal failure, hemorrhage, etc.) Patient agrees with plan and verbalized understanding. 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 Chronic HFrEF: -Will check BNP -Weight yesterday 77.1 kg -Continue on BB, lasix, hydralazine, and imdur -No ACEI d/t reported allergy (cough) -Continue CHF core measures: Strict IANDO, daily standing weights, and CHF diet -Heart failure clinic referral HLD: -Lipids 11/09: Cholesterol 235, Triglyceride 184, HDL 46, LDL 152 -intolerant to statins HTN: -150/85 -Continue to monitor Blood pressure, can consider up-titration of medications after [facility] Medication and Non-Pharmacologic VTE Prophylaxis/Anticoagulants Anticoagulant AND Antiplatelet Medications Start Dose Route Frequency Ordered Stop 11/09/17 0710 heparin 1,000 Units in D5W 250 mL (Staff Nurse Icu Resource Team Procedures) 1,000 Units IArt ONE TIME 11/09/17 0710 -- 11/09/17 0710 heparin 3,000 Units in NaCl 0.9% 500 mL irrigation (Staff Nurse Icu Resource Team Procedures) 3,000 Units IRRIGATION ONE TIME 11/09/17 0710 -- 11/08/17 1730 clopidogrel 75 mg tab(s) (PLAVIX) 75 mg ORAL DAILY 11/08/17 1724 -- 11/08/17 1730 aspirin, enteric coated 81 mg tab(s) 81 mg ORAL DAILY 11/08/17 1724 -- 11/08/17 1730 heparin iv infusion (LOW DOSE ACS/NOMOGRAM) 25,000 units in NaCl 0.45% 250 mL PREMIX (Heparin Infusion + Rate Change Bolus) 0-30 mL/hr 0-3,000 Units/hr INTRAVENOUS CONTINUOUS 11/08/17 1724 -- @[facility]([id number])@ VTE Prophylaxis: VTE prophylaxis appropriate SIGNATURE: Norman Saldana APRN.CNP PATIENT NAME: Angie Dixon DATE: November 09, 2017 TIME: 9:44 AM PAGER/CONTACT #: [id number] Progress Notes ([facility]): Cailin Christie 10/18/2017 12:14 PM Signed Patient has been identified by name and date of : Yes Pending Prescriptions Disp Refills OMEPRAZOLE 20 MG CAPSULE,DELAYED RELEASE 60 capsule 3 Sig: Take 1 capsule by mouth once daily. NASIM: No Patient calling today and states that the above medication he feels is not strong enough. Patient has doubled up on the medication and he still has a lot of discomfort at night. Please advise. RX INSTRUCTIONS: Patient aware RX will be sent to pharmacy. No need to notify patient. Cailin Ballard Psr Ramo Moreira III MD 10/18/2017 7:10 PM Signed May try Protonix 40 mg daily instead. This has been sent to the local pharmacy. Ramo Moreira III, MD, FAAFP Alannah Abreu Psr 10/25/2017 11:42 AM Addendum Patient stated the 40 mg tablet is not working; he was taking 2 pills and still not helping; He stated his brother is taking Sucralfate and he would like to try taking this medication instead? Please send to [facility] in [place]. Previous Version Ramo Moreira III MD 10/25/2017 1:09 PM Signed Discontinue Protonix and try sucralfate 1 g before every meal and before bedtime. Give progress report in 2 weeks. Prescriptions sent to local pharmacy. Ramo Moreira III, MD, FAAFP Ramo Moreira III MD 10/25/2017 1:09 PM Signed Addended by: RAMO MOREIRA III, MD on: 10/25/2017 01:09 PM Modules accepted: Orders HISTORY AND PHYSICAL Observed: 11/07/2017 Status: F Source: [place] EXAM 11:39 PM [facility] REPOSITORY [facility] Medical Records Department [address] [place] [id number] History and Physical 11/07/17 2141 MR#: [id number] Acct: [id number] Name: ANGIE DIXON Rep #: [id number] : 1945 72 From: Carmen Hogan PCP: Ramo Moreira III, MD Status: ADM IN Y Location: ICU [id number] Problem List (1) NSTEMI (non-ST elevated myocardial infarction) Status: Acute (2) Chest pain Status: Acute Qualifiers: Chest pain type: unspecified Qualified Code(s): R07.9 - Chest pain, unspecified (3) Implantable cardioverter-defibrillator (ICD) in situ Status: Chronic (4) Ischemic cardiomyopathy Status: Chronic (5) History of coronary artery bypass graft x 3 Status: Chronic Comment: CHARLES to LAD, SVG to RCA and SVG to CX per Dr. Buitrago @ [facility] (6) Atherosclerotic heart disease of [place] coronary artery with other forms of angina pectoris Status: Chronic (7) DM2 (diabetes mellitus, type 2) Status: Chronic Qualifiers: Diabetes mellitus chcf insulin use: with vermin exterminator use Diabetes mellitus complication status: with unspecified complications Qualified Code(s): E11.8 - Type 2 diabetes mellitus with unspecified complications; Z79.4 - retirement (current) use of insulin (8) CKD (chronic kidney disease), stage IV Status: Chronic (9) History of pulmonary embolism Status: Chronic Comment: Provoked (10) History of hypertension Status: Chronic (11) History of hyperlipidemia Status: Chronic (12) History of gout Status: Chronic (13) Agent orange exposure Status: Chronic (14) History of colostomy Status: Chronic History of Present Illness Date of Admission: 11/07/17 Chief Complaint: Chest pain The patient is a 72 y/o M w/ PMHx: CKD stage IV, Diabetes mellitus type II, HTN, HLD, Gout, CAD s/p PCI (3 total) as well as CABG x 3, Hx Provoked PE, s/p Colostomy Status, AOCD,, Ischemic Cardiomyopathy s/p recent AICD placement on 10/05/17 who presents to the [facility] ED on 11/07/17 with history of several months of ongoing intermittent exertional chest pain in addition to chest discomfort awakening him from sleep with associated diaphoresis, dyspnea primarily in the midsternal region and in addition to between the shoulder blades, worse with activity with additionally associated nausea without emesis with worsened severity upon day of ED presentation. He noted chest pain at worst 10/10, currently following ED interventions 0/10. Work-up in the ED included T 97.6, heart rate initially 109--> 97, BP 171/106, respiratory rate 21, 98% on room air, CBC with WBC 9.6, hemoglobin 10.1, platelet 167 without market left shift, BMP with carbon dioxide 20, BUN/Cr 43/2.99, glucose 236, troponin 0.469, EKG with new EKG changes in leads II, 3, aVF with ST depression and T wave inversions changed from prior, chest x-ray with no acute findings. In the ED patient administered aspirin, NG and initiated on heparin drip per Cardiology request. Cardiology consulted per ED and reviewed case w/ planned ICU admission and evaluation in AM for possible catheterization. Past Medical History Past Medical History (Chronic Problems): Chronic Problems (Last Reviewed 09/22/17 @ 08:20 by Bessy Lr) Implantable cardioverter-defibrillator (ICD) in situ (Chronic) Ischemic cardiomyopathy (Chronic) 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 Buitrago @ [facility] History of left heart catheterization (Chronic 09/06/17) Atherosclerotic heart disease of [place] coronary artery with other forms of angina pectoris (Chronic) DM2 (diabetes mellitus, type 2) (Chronic) CKD (chronic kidney disease), stage IV (Chronic) History of pulmonary embolism (Chronic) Provoked History of hypertension (Chronic) History of hyperlipidemia (Chronic) History of gout (Chronic) 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) Medical History: Medical History (Last Updated 10/13/17 @ 15:46 by Nat Persaud) Implantable cardioverter-defibrillator (ICD) in situ (Chronic) Z95.810 Ischemic cardiomyopathy (Chronic) I25.5 Atherosclerotic heart disease of [place] coronary artery with other forms of angina pectoris (Chronic) I25.118 DM2 (diabetes mellitus, type 2) (Chronic) E11.9 CKD (chronic kidney disease), stage IV (Chronic) N18.4 History of pulmonary embolism (Chronic) Z86.711 Provoked History of hypertension (Chronic) Z86.79 History of hyperlipidemia (Chronic) Z86.39 History of gout (Chronic) Z87.39 Agent orange exposure (Chronic) Z77.098 Allergies atorvastatin calcium [From Lipitor] Allergy (Verified 11/07/17 18:55) Pain in joints verapamil [From Covera-HS] Allergy (Verified 11/07/17 18:55) passes out lisinopril Adverse Reaction (Verified 11/07/17 18:55) Other muscle pain Niacin Preparations Adverse Reaction (Verified 11/07/17 18:55) Pain in joints Cholesterol Meds Adverse Reaction (Uncoded 11/07/17 18:55) Other Home Medications: Ambulatory Orders Medication Instructions Recorded Mirtazapine [Remeron] 15 mg PO QHS 12/02/13 Doxazosin Mesylate [Cardura] 2 mg PO QHS 01/30/15 Surgical History: Surgical History (Last Reviewed 09/22/17 @ 08:20 by Bessy Lr) History of coronary artery bypass graft x 3 (Chronic) Onset Date: 09/27/06 Z95.1 CHARLES to LAD, SVG to RCA and SVG to CX per Dr. Buitrago @ [facility] History of left heart catheterization (Chronic) Onset Date: 09/06/17 Z98.890 History of colostomy (Chronic) Z98.890 Surgical History: - - History of ruptured bowel status post colostomy, PCI, CABG, appendectomy, hernia repair. Psychiatric History: Anxiety, Depression Lives: Spouse/ Significant Other Smoking Status: Former smoker Tobacco Use: Non-smoker Alcohol: None Drugs: None - *Family History Sibling Family History: Family History (Last Reviewed 09/22/17 @ 08:20 by Bessy Lr) Unknown No problems noted. History Items: Diabetes, Heart Disease Maternal Family History: Family History (Last Reviewed 09/22/17 @ 08:20 by Bessy Lr) Unknown No problems noted. History Items: Heart Disease Paternal Family History: Family History (Last Reviewed 09/22/17 @ 08:20 by Bessy Lr) Unknown No problems noted. History Items: Heart Disease Review of Systems Constitutional: Reports: Malaise, Weakness, Fatigue. Denies: Chills, Fever, Weight Change HEENT: Denies: Head Aches, Sinus Congestion, Sinus Drainage Cardiovascular: Reports: Chest Pain, Chest Pressure, Chest Tightness. Denies: Light Headedness, Orthopnea, Palpitations Respiratory: Reports: Shortness of Breath, Shortness of breath upon exertion. Denies: Cough, Shortness of breath at rest, Sputum production Gastrointestinal: Reports: Nausea. Denies: Abdominal Pain, Vomiting Genitourinary: Denies: Dysuria Musculoskeletal: Denies: Joint Pain, Joint Tenderness Skin: Denies: Rash, Wounds Neurological: Denies: Numbness, Tingling, Focal weakness Psychiatric: Reports: Anxiety, Depression. Denies: Homicidal Ideations, Suicidal Ideations Hematologic/ Lymphatic: Reports: Anemia, Easy Bruising, Easy Bleeding VTE Information - Inpt Only VTE Present on Admission: No VTE Mechan Device Prophylaxis: SCD's VTE Pharm Prophylaxis ordered?: Yes Patient Problems: Active and Suspected Problems (Last Updated 10/13/17 @ 15:46 by Nat Persaud) Chest pain (Acute) NSTEMI (non-ST elevated myocardial infarction) (Acute) Subjective: Seated upright in the ED bed, anxious appearing, notes currently no chest pain. Objective: Physical Examination: General: awake, alert, oriented x 3 and cooperative, seated upright in the ED bed in no apparent distress, anxious appearing. Skin: normal color, turgor, no icterus, cyanosis except very staged ecchymoses to the extremities. HEENT: AT/NC, EOMI, PERRLA, MMM, no carotid bruits or JVD noted. Lungs: CTA bilaterally, moderate effort, mild decrease BL bases, no rales, ronchi or wheezing. Heart: Regular rate and rhythm; no gallop, rub audible. Abdomen: soft, ostomy LLQ, NTTP, ND, mildly hyperactive BS, no HSM. Extremities: no cyanosis, clubbing, or edema. Neurological: patient awake, alert, oriented x 3; cognitive function intact; pupils equally reactive to light and accomodation; cranial nerves II-XII grossly normal, moving all 4 extremities, no focal deficits, strength moderately globally decreased secondary to acute presentation. Psychiatric: affect appears fatigued, mildly anxious, no acute evidence of depressive feelings. - Physical Exam Vital Signs Temp Pulse Resp BP Pulse Ox 97.6 F L 94 18 179/99 H 98 11/07/17 18:52 11/07/17 21:16 11/07/17 21:16 11/07/17 21:16 11/07/17 21:16 Oxygen Flow Rate (L/min) 2 Oxygen Delivery Method Nasal Cannula Weight: 170 lb Body Mass Index (BMI) 26.6 Laboratory Tests Past 24 Hrs Assessment/Plan All Active Problems (Last Updated 10/13/17 @ 15:46 by Nat Persaud) Chest pain (Acute) NSTEMI (non-ST elevated myocardial infarction) (Acute) Chest pain (Resolved) The patient is a 72 y/o M w/ PMHx: CKD stage IV, Diabetes mellitus type II, HTN, HLD, Gout, CAD s/p PCI 2012/2013 (3 total) as well as CABG x 3, Hx Provoked PE, s/p Colostomy Status, AOCD,, Ischemic Cardiomyopathy s/p recent AICD placement on 10/05/17 who presents to the [facility] ED on 11/07/17 with history of several months of ongoing intermittent exertional chest pain in addition to chest discomfort awakening him from sleep with associated diaphoresis, dyspnea primarily in the midsternal region and in addition to between the shoulder blades, worse with activity with additionally associated nausea without emesis with worsened severity upon day of ED presentation. (1) Chest Pain w/ Acute NSTEMI: ED included T 97.6, heart rate initially 109--> 97, BP 171/106, respiratory rate 21, 98% on room air, CBC with WBC 9.6, hemoglobin 10.1, platelet 167 without market left shift, BMP with carbon dioxide 20, BUN/Cr 43/2.99, glucose 236, troponin 0.469, EKG with new EKG changes in leads II, 3, aVF with ST depression and T wave inversions changed from prior, chest x-ray with no acute findings. Will admit to CCU per Cardiology preference, maintain on a monitored bed, continue serial cardiac enzymes and EKGs. Obtain magnesium level upon admission. Continue heparin drip. Continue medical management w/ asa, plavix, BB, statin w/ AM FLP. Cardiology consulted, possible repeat cardiac catheterization. Maintain NPO after midnight. ASA, NG, morphine. 09/08/17 admission w/ cardiac catheterization w/ noted occluded SVG graft to OM, patent SVG graft to RCA, patent CHARLES to LAD, patent LCx stents and possibly significant proximal LAD disease, no interventions performed. (2) CAD: s/p CABG and PCI. 09/08/17 admission w/ cardiac catheterization w/ noted occluded SVG graft to OM, patent SVG graft to RCA, patent CHARLES to LAD, patent LCx stents and possibly significant proximal LAD disease, no interventions performed. Will continue home regimen asa, plavix, statin, BB. (3) Ischemic Cardiomyopathy: 10/05/17 AICD placement, continue home asa, plavix, statin, BB, lasix. (4) Chronic Kidney Disease Stage IV: Admission BUN/Cr 43/2.99, baseline renal function 2.7-3, repeat BMP in AM. Following w/ Dr. Royal with ongoing encouragement for placement AVF for future HD needs. Recent AICD with planned AICD formation now following. (5) AOCD/Fe deficiency: Admission Hgb 10.1, baseline 9-11 range, maintain on Fe supplementation, repeat CBC in AM. (6) Diabetes mellitus type II: Hold oral home regimen, continue home insulin regimen, ADA diet, accu checks w/ ISS. (7) Hypertension: Continue home regimen including isosorbide, Coreg, Cardizem, Lasix, hydralazine, PRN hydralazine. (8) Hyperlipidemia: Continue home statin regimen. AM FLP. (9) Anxiety and depression: Continue home regimen Remeron, Effexor, PRN ativan. (10) GERD: PPI. (11) DVT Prophylaxis: SCDs, heparin drip. Code Visit Inpatient E AND M: [id number] Init Hosp L3 11/07/17 9079 <Electronically signed by Carmen Hogan > Date Carmen Hogan Cosigner Signature: Date (if applicable) CC: Carmen Hogan; Ramo Moreira III, MD Signed M R STAPH AUREUS Collected: 11/07/2017 Status: F Source: [place] DNA BY PCR 11:20 PM [facility] REPOSITORY Order Comment: Order Date: 11/07/17 TYPE CODE TESTS RESULT OUT OF RANGE REFERENCE UNITS LAB L8200.1100 Negative Normal MRSA Negative RESULT Performed By: #### L8200.1000 #### [facility] [address] [place], [address] EMERGENCY DEPARTMENT Observed: 11/07/2017 Status: F Source: [place] SUMMARY 9:58 PM [facility] REPOSITORY [facility] Medical Records Department [address] [place] [address] Emergency Department Summary 11/07/17 2152 MR#: [id number] Acct: [id number] Name: ANGIE DIXON Clarisse Rep #: [id number] : 1945 72 From: Tarun Barajas MD PCP: Ramo Moreira III, MD Status: REG ER - ER Visit Summary Date of Service: 11/07/17 Chief Complaint: Chest pain History of Present Illness: The patient is a 72 M with history of ischemic cardiomyopathy, OK, type 2 diabetes, hypertension, hypercholesterolemia, end-stage renal disease and PE presents with 1+ month of intermittent exertional chest pain. He has had a couple episodes that is awakened him from sleep. He did not notify his spice miller Dr. Sanford. This evening he developed severe pain radiating to his back with diaphoresis shortness of breath. He is presently on aspirin and Plavix. He states he is compliant with his medication. He denies fever, chills night sweats. Denies weight gain or weight loss. Denies visual, ocular auditory symptoms. He denies orthopnea or PND. He denies any GI symptoms. Physical Examination: Patient appears in obvious discomfort holding his chest and diaphoresis. Blood pressure is elevated. Head is atraumatic normocephalic. Pupils are equal round reactive. Extraocular muscles are intact. TMs are pearly white with landmarks noted. Nares patent with no drainage. Posterior pharynx without erythema or exudate. Uvula is midline. There is no dysphonia or dysphasia. Trachea is midline. There is no stridor with auscultation of the neck. Heart is regular without murmur, gallop or rub. S1 and S2 are normal. Lungs are clear to auscultation with good movement of air bilaterally. Abdomen is soft nontender. There is no asymmetry, swelling, discoloration, leg vein distention, palpable cords or tenderness along the distribution of the deep venous system. Neuro exam is nonfocal. Test Results: EKG obtained in triage reveals inferior ischemic changes are new from September 07, 2017. Chest x-ray reveals no acute process. CBC reveals mild anemia with an H AND H 10.1 and 30.4. Basic metabolic panel reveals elevated creatinine 2.99 and glucose 236. Troponin is elevated 0.47. Emergency Department Course and Treatment: In light of EKG changes patient received aspirin nitro. The nitro alleviated his pain. He also received clonidine to decrease his blood pressure. Dr. Khan recommended approximately 25 mg 3 times daily. Because of the elevated creatinine he was administered heparin per weight- based protocol with bolus. Treatment Plan: Admit CCU acute coronary syndrome/non-ST elevation OK Disposition: Admit CCU Impression: Acute coronary syndrome/non-ST elevation OK End-stage renal disease Hyperglycemia type II diabetic History of ischemic cardiomyopathy Hypertension hypertensive patient This note was generated with toucanBoxation software. It may contain incorrect words, spelling, and punctuation that were not noted in review of the chart prior to signing ED Disposition - Plan for ED Patient: Chief Complaint: Chest Pain Referrals: Ramo Moreira III, MD [Primary Care Provider] - What to do if you have Problems For any increased pain, shortness of breath, bleeding, nausea or vomiting, chest pain, or any unexpected problems, contact your Primary Care Provider. Call [facility] ([phone]) or report to the closest Emergency Room. Call 911 if necessary. 11/07/172157 <Electronically signed by Tarun Barajas MD> Date Tarun Barajas MD Cosigner Signature (If Indicated): Date CC: Jayy Sanford MD; Ramo Moreira III, MD BASIC METABOLIC Collected: 11/07/2017 Status: F Source: [place] PRO[place] (BMP) 7:05 PM [facility] REPOSITORY TYPE CODE TESTS RESULT OUT OF RANGE REFERENCE UNITS LAB L501.0100 74-106 mg/dL High GLU 236 Result Comment: Glucose result greater than or equal to 200 mg/dL suggests DIABETES MELLITUS per A.D.A. criteria. Please note revised GLUCOSE reference range effective 2017. LAB L501.1000 7-18 mg/dL High BUN 43 LAB L501.1100 0.70-1.30 mg/dL High CREAT,SERUM 2.99 Result Comment: The validity of the calculated GFR AND GFRAA in patients over 70 years has not been determined. Clinical correlation is essential. LAB L501.1110 >60 mL/min Low EST GFR 22 Result Comment: Non- GFR Calc LAB L501.1115 >60 mL/min Low EST GFR - AA 27 Result Comment: GFR Calc LAB L501.1255 ml/min Normal Estimated CRCL 20.57 LAB L501.1300 10-20 RATIO Normal BUN/CRE 14.4 LAB L501.2200 8.5-10 mg/dL Normal .1 CA 8.8 LAB L501.5300 136-14 mmol/L Normal 5 NA 136 LAB L501.5600 3.5-5. mmol/L Normal 1 K 3.9 LAB L501.5900 98-107 mmol/L Normal CL 105 LAB L501.6100 21.0-3 mmol/L Low 2.0 CO2 20.0 LAB L501.6200 5-15 Normal GAP 11 Performed By: #### L500.2500, L501.4010 #### [facility] [address] [place], [address] TROPONIN-I Collected: 11/07/2017 Status: F Source: [place] 7:05 PM [facility] REPOSITORY TYPE CODE TESTS RESULT OUT OF RANGE REFERENCE UNITS LAB L501.4010 <0.045 ng/mL High 0.469 TROPONIN-I Result Comment: TROPONIN-I EXPECTED VALUES <0.045 Negative 0.045 - 0.590 Consistent with Cardiac Damage > OR = 0.600 Critical Value Not every elevated troponin is indicative of OK. These values should be used with clinical judgement in examining the patient's clinical picture for diagnosis. To establish a diagnosis of OK versus myocardial injury, there must be a demonstrated rise and/or fall in the troponin values, in addition to ischemic symptoms, EKG changes, new regional wall motion abnormality, and/or angiographical evidence. PLEASE NOTE: REFERENCE RANGES EDITED 17 Performed By: #### L500.2500, L501.4010 #### [facility] [address] [place], [address] CBC W/DIFF, AUTOMATED Collected: 11/07/2017 Status: C Source: [place] 7:05 [facility] REPOSITORY TYPE CODE TESTS RESULT OUT OF RANGE REFERENCE UNITS LAB L100.1000 4.4-11.0 K/mm3 Normal WBC 9.6 LAB L100.1200 4.6-6.2 M/mm3 Low RBC 3.23 LAB L100.1300 13.0-16.5 g/dl Low HGB 10.1 LAB L100.1400 40-54 % Low HCT 30.4 LAB L100.1500 80-94 fL High MCV 94.1 LAB L100.1600 27.0-32.0 pg Normal MCH 31.3 LAB L100.1700 32-36 g/gl Normal MCHC 33.2 LAB L100.1810 11.6-14.6 % Normal RDW CV 14.6 LAB L100.1820 35.1-43.9 fl High RDW SD 47.9 LAB L100.1900 150-450 K/mm3 Normal PLT 167 LAB L100.2000 6.2-12.0 fl Normal MPV 11.3 LAB L100.2100 47-70 % Normal NEUT% 56.9 LAB L100.2200 19-41 % Low LY% 10.9 LAB L100.2300 0-10 % Normal MONO% 8.4 LAB L100.2400 0-5 % High EO% 22.6 LAB L100.2500 0-1 % Normal BASO% 1.0 LAB L100.2550 0.0-0.9 % Normal IM GRAN % 0.200 Result Comment: IG% - Immature Granulocytes (promyelocytes, myelocytes and metamyelocytes) > 1% indicates that a LEFT SHIFT is Present. LAB L100.2620 2.0-7.7 X10 3/uL Normal Absolute Neut 5.5 LAB L100.2720 0.83-4.51 X10 3/ul Normal Absolute Lymph 1.05 LAB L100.4500 Normal SMEAR COMMENT SCANNED Result Comment: EOSINOPHILIA NOTED LAB L100.9900 Normal Reviewed PATH REV Result Comment: Macrocytic anemia. Eosinophilia. Clinical correlation necessary. Alen Richey M.D. 11/08/17 AMENDED REPORT 11/08/17 1458 PATH REV previously reported as: June Performed By: #### L100.0100 #### [facility] [address] [place], [place], [address] PARTIAL THROMBOPLAST Collected: 11/07/2017 Status: F Source: [place] TIME 7:05 PM [facility] REPOSITORY TYPE CODE TESTS RESULT OUT OF RANGE REFERENCE UNITS LAB L300.4310 24.1-36.2 Seconds Normal PTT 30.1 Performed By: #### L300.4310 #### [facility] [address] [place], [address] MAGNESIUM Collected: 11/07/2017 Status: F Source: [place] 7:05 PM [facility] REPOSITORY TYPE CODE TESTS RESULT OUT OF RANGE REFERENCE UNITS LAB L501.5200 1.6-2.6 mg/dL Normal MG 2.2 Performed By: #### L501.5200 #### [facility] [address] [place], [address] CHEST 1 VIEW Observed: 11/07/2017 Status: F Source: [place] (PORTABLE) 6:56 PM [facility] REPOSITORY [facility] Imaging Services [address] [place] [address] Chest 1 View (Portable) MR#: [id number] Acct: [id number] Name: ANGIE DIXON Rep #: [id number] : 1945 M 72 From: Shai Heredia MD PCP: Ramo Moreira III, MD Status: REG ER Study: Chest 1 View (Portable) Date of Exam: 11/07/17 Exam# [id number] Ordering Dr: Tarun Barajas MD STUDY: X-RAY CHEST REASON FOR EXAM: Male, 72 years old. SOB AND CHEST PAINS. HX OF TRIPLE BYPASS IN 2006, AND PLACED 3 STENTS WELL PER PATIENT. TECHNIQUE: Single frontal view of the chest. COMPARISON: 10.06.17 FINDINGS: Chronic appearing increased interstitial lung markings. There is a left sided pacemaker batterypack. Multiple median sternotomy wires are noted consistent for cardiac surgery. There is no demonstrated pleural abnormality. Stable severe scoliosis of the thoracic spine. Enlarged heart size. Normal mediastinum and giovanni. Normal visualized pulmonary arteries. There is atherosclerotic calcification of the aortic arch with tortuosity. There are diffuse degenerative changes of the visualized thoracic spine. There is degenerative osteoarthritis of the bilateral shoulders. There is no demonstrated abnormality of the visualized soft tissue structures of the upper abdomen. RAD/Chest 1 View (Portable) IMPRESSION: There are no acute findings. Electronically Signed: Shai Heredia MD at 19:12 EDT , Service support , CC: Ramo Moreira III, MD; Tarun Barajas MD Button Puncher: Signed CNPN Observed: 10/18/2017 Status: COMPLETED Source: [place] 12:00 AM [facility] REPOSITORY [facility] ANGIE DIXON ([id number]) 1945 M Date Time Provider Department 10/18/17 RAMO MOERIRA III During your visit today, we recorded the following information about you: Cailin Ballard Psr 10/18/2017 12:14 PM Signed Patient has been identified by name and date of : Yes Pending Prescriptions Disp Refills OMEPRAZOLE 20 MG CAPSULE,DELAYED RELEASE 60 capsule 3 Sig: Take 1 capsule by mouth once daily. NASIM: No Patient calling today and states that the above medication he feels is not strong enough. Patient has doubled up on the medication and he still has a lot of discomfort at night. Please advise. RX INSTRUCTIONS: Patient aware RX will be sent to pharmacy. No need to notify patient. Cailin Ballard Psr Ramo Moreira III MD 10/18/2017 7:10 PM Signed May try Protonix 40 mg daily instead. This has been sent to the local pharmacy. Ramo Moreira III, MD, FAAFP Alannah Abreu Psr 10/25/2017 11:42 AM Addendum Patient stated the 40 mg tablet is not working; he was taking 2 pills and still not helping; He stated his brother is taking Sucralfate and he would like to try taking this medication instead? Please send to [facility] in [place]. Ramo Moreira III MD 10/25/2017 1:09 PM Signed Discontinue Protonix and try sucralfate 1 g before every meal and before bedtime. Give progress report in 2 weeks. Prescriptions sent to local pharmacy. Ramo Moreira III, MD, FAAFP Ramo Moreira III MD 10/25/2017 1:09 PM Signed Addended by: RAMO MOREIRA III, MD on: 10/25/2017 01:09 PM Modules accepted: Orders Allergies As of Date: 10/18/2017 Noted Allergy Reaction COVERA-HS (VERAPAMIL HCL) 01/27/2005 5 - Intolerance Comments: passed out LISINOPRIL 03/11/2006 3 - Cough NIASPAN (NIACIN) 04/28/2009 2 - Rash Date Reviewed: 09/18/2017 Reviewed by: Roseanne ([facility]) HANNAH Sarabia - Fully Assessed Reason for Visit: Refill Request [94] Visit Diagnosis:Gastroesophageal reflux disease, esophagitis presence not specified [K21.9] Order(s):sucralfate (CARAFATE) 1 gram tabletTake 1 tablet by mouth before meals and at bedtime.Disp: 60 tabletRfl: 2 Prescriptions as of 10/18/2017 Sig: SUCRALFATE 1 GRAM TABLET Take 1 tablet by mouth before* FUROSEMIDE 20 MG TABLET Take 2 tablets by mouth once * ALPRAZOLAM 0.5 MG TABLET Take 0.5 mg by mouth twice da* CARVEDILOL 25 MG TABLET Take 25 mg by mouth twice gaudencio* HYDRALAZINE 50 MG TABLET Take 50 mg by mouth twice gaudencio* POTASSIUM CHLORIDE. once daily. ISOSORBIDE MONONITRATE ER 60 * Take 60 mg by mouth once tyshawn* ALLOPURINOL 100 MG TABLET Take 1 tablet by mouth once d* VENLAFAXINE 75 MG TABLET Take 2 tablets by mouth once * INSULIN GLARGINE (U-100) 100 * Inject 14 Units subcutaneousl* DOXAZOSIN 4 MG TABLET Take 1 tablet by mouth once d* AMLODIPINE 5 MG TABLET Take 1 tablet by mouth once d* Patient not taking: Reported on 09/18/2017 CLOTRIMAZOLE-BETAMETHASONE 1 * Apply 1 application to affect* METOPROLOL TARTRATE 50 MG TAB* Take 1 tablet by mouth twice * Patient not taking: Reported on 09/18/2017 PEN NEEDLE, DIABETIC 29 GAUGE* Use one needle per dose. 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.0] INVALID FOR*04/22/2010 UNEQUAL LEG LENGTH [M21.70] INVALID FOR* Hyposmolality and/or hyponatremia [E87.1] INVALID FOR*07/09/2014 Anemia, unspecified [D64.9] INVALID FOR*07/09/2014 Coronary atherosclerosis [I25.10] INVALID FOR* Contact dermatitis and other eczema, due to uns*INVALID FOR*07/09/2014 Embolism and thrombosis of unspecified site (HC*INVALID FOR*07/09/2014 PULM EMBOLISM/INFARCT IATROGENIC [T81.718A, I26* 07/09/2014 DVT-ARM [I82.629] 07/09/2014 Abscess of intestine [K63.0] INVALID FOR*07/09/2014 Gout [M10.9] INVALID FOR* Biceps tendon rupture [S46.219A] INVALID FOR*07/09/2014 Benign prostatic hyperplasia with urinary obstr*INVALID FOR* Chronic depression [F32.9] INVALID FOR* Hyperkalemia [E87.5] INVALID FOR*05/25/2017 Atherosclerosis of tunica-biloxi coronary artery of na*INVALID FOR* Hyperlipidemia LDL goal <100 [E78.5] INVALID FOR* 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] INVALID FOR* Encounter for screening for malignant neoplasm *INVALID FOR*01/22/2015 Type 2 diabetes mellitus with stage 4 chronic k*INVALID FOR* Acute kidney failure, unspecified (HCC) [N17.9] INVALID FOR*09/18/2017 Exposure to Agent [place] [Z77.098] INVALID FOR* History of colostomy [AHZ6010] INVALID FOR* History of gout [Z87.39] INVALID FOR* History of hypertension [Z86.79] INVALID FOR* History of pulmonary embolism [Z86.711] INVALID FOR* Peripheral vascular disease, unspecified (HCC) *INVALID FOR* Prescriptions ordered this encounter Disp Refills Start End OMEPRAZOLE 20 MG CAPSULE,DELAYED REL* 90 c* 3 10/18/2017 10/18/2017 Route: ORAL Sig: Take 1 capsule by mouth once daily. Disc: Course of therapy completed PANTOPRAZOLE 40 MG TABLET,DELAYED RE* 90 t* 3 10/18/2017 10/25/2017 Route: ORAL Sig: Take 1 tablet by mouth once daily. Disc: Lack of Efficacy SUCRALFATE 1 GRAM TABLET 60 t* 2 10/25/2017 Route: ORAL Sig: Take 1 tablet by mouth before meals and at bedtime. Medications Discontinued During This Encounter pantoprazole DR (PROTONIX) 40 mg tab* 10/18/2017 Class: Historical Med Route: ORAL Sig: Take 40 mg by mouth once daily. Disc: Course of therapy completed omeprazole (PRILOSEC) 20 mg capsule 60 c* 3 01/07/2013 10/18/2017 Class: Historical Med Route: ORAL Sig: Take 1 capsule by mouth once daily. Disc: Reason for discontinue is not on file. omeprazole (PRILOSEC) 20 mg capsule 90 c* 3 10/18/2017 10/18/2017 Route: ORAL Sig: Take 1 capsule by mouth once daily. Disc: Course of therapy completed pantoprazole DR (PROTONIX) 40 mg tab* 90 t* 3 10/18/2017 10/25/2017 Route: ORAL Sig: Take 1 tablet by mouth once daily. Disc: Lack of Efficacy Encounter Status:Closed by ROSEANNE SARABIA CMA on 10/18/17 PACEMAKER CHECK Observed: 10/17/2017 Status: F Source: [place] 9:[address] [place] [address] Pacemaker Check Date of Service: 10/13/171544 MR#: [id number] Acct: [id number] Name: ANGIE DIXON Rep #: [id number] : 1945 From: Nat Persaud Age/Sex: 72/M Location: [facility] [place] Status: Signed Billing Codes ICD Device Billing: ICD Dev g Renetta, Single 10/13/17 1548 <Electronically signed by Nat Persaud > Date Nat Persaud 10/17/1730<Electronically signed by Tiffanie FUNK> Marcio Signature: Date (if applicable) Tiffanie Donovan CC: BEDSIDE GLUCOSE Collected: 10/06/2017 Status: F Source: [place] 8:06 AM [facility] REPOSITORY TYPE CODE TESTS RESULT OUT OF REFERENCE UNITS RANGE LAB L501.080 70-110 mg/dL High BEDSIDE GLU 121 Result Comment: MANAGEMENT OF PATIENT CARE PER NURSING PROTOCOL Performed By: #### L501.080 #### [facility] Point of Care [address] [place], [place] [address] HH, HEMOGLOBIN AND Collected: 10/06/2017 Status: F Source: [place] HEMATOCRIT 6:30 AM [facility] REPOSITORY TYPE CODE TESTS RESULT OUT OF RANGE REFERENCE UNITS LAB L100.1300 13.0-16.5 g/dl Low HGB 9.5 LAB L100.1400 40-54 % Low HCT 29.1 Performed By: #### L100.0600 #### [facility] [address] [facility] [place], [place], [address] BASIC METABOLIC Collected: 10/06/2017 Status: F Source: [place] PROFILE (BMP) 6:30 AM [facility] REPOSITORY TYPE CODE TESTS RESULT OUT OF RANGE REFERENCE UNITS LAB L501.0100 74-106 mg/dL High GLU 130 Result Comment: Fasting Glucose result greater than or equal to 126 mg/dL suggests DIABETES MELLITUS per A.D.A. criteria. Please note revised GLUCOSE reference range effective 2017. LAB L501.1000 7-18 mg/dL High BUN 42 LAB L501.1100 0.70-1.30 mg/dL High CREAT,SERUM 2.86 Result Comment: The validity of the calculated GFR AND GFRAA in patients over 70 years has not been determined. Clinical correlation is essential. LAB L501.1110 >60 mL/min Low EST GFR 23 Result Comment: Non- GFR Calc LAB L501.1115 >60 mL/min Low EST GFR - AA 28 Result Comment: GFR Calc LAB L501.1255 ml/min Normal Estimated CRCL 21.51 LAB L501.1300 10-20 RATIO Normal BUN/CRE 14.7 LAB L501.2200 8.5-10 mg/dL Normal .1 CA 8.5 LAB L501.5300 136-14 mmol/L Normal 5 NA 142 LAB L501.5600 3.5-5. mmol/L Normal 1 K 4.3 LAB L501.5900 98-107 mmol/L High CL 109 LAB L501.6100 21.0-3 mmol/L Low 2.0 CO2 19.0 LAB L501.6200 5-15 Normal GAP 14 Performed By: #### L500.2500 #### [facility] [address] [facility] [place], [address] CHEST 1 VIEW Observed: 10/06/2017 Status: F Source: [place] 12:02 AM [facility] REPOSITORY [facility] Imaging Services [address] [place] [address] Chest 1 View MR#: [id number] Acct: [id number] Name: ANGIE DIXON Rep #: [id number] : 1945 M 72 From: Kal Higginbotham MD PCP: Ramo Moreira III, MD Status: REG [facility] Study: Chest 1 View Date of Exam: 10/06/17 Exam# [id number] Ordering Dr: Giorgio Joyner MD STUDY: X-RAY CHEST REASON FOR EXAM: Male, 72 years old. Pacemaker insertion, evaluate for pneumothorax TECHNIQUE: Single frontal view of the chest. COMPARISON: Same day FINDINGS: Median sternotomy wires. Single chamber defibrillator on the left. Central vascular congestion, unchanged. No pneumothorax is seen. Normal size heart. Normal mediastinum and giovanni. Normal visualized pulmonary arteries. Normal visualized aortic arch and descending thoracic aorta. Normal visualized thoracic spine. Degenerative left shoulder change. IVC filter. RAD/Chest 1 View IMPRESSION: Central vascular congestion, unchanged. No pneumothorax is seen. Electronically Signed: Kal Higginbotham MD at 7:13 EDT Tel , Service support , CC: Giorgio Joyner MD; Ramo Moreira III, MD Button Puncher: Signed CHEST PA AND LATERAL Observed: 10/06/2017 Status: F Source: [place] 12:00 AM [facility] REPOSITORY [facility] Imaging Services [address] [place] [address] Chest PA and Lateral MR#: [id number] Acct: [id number] Name: ANGIE DIXON Rep #: [id number] : 1945 M 72 From: Kal Higginbotham MD PCP: Ramo Moreira III, MD Status: REG [facility] Study: Chest PA and Lateral Date of Exam: 10/06/17 Exam# [id number] Ordering Dr: Giorgio Joyner MD STUDY: X-RAY CHEST REASON FOR EXAM: Male, 72 years old. Pacemaker insertion, exclude pneumothorax TECHNIQUE: Frontal and lateral views of the chest. COMPARISON: 10/05/2017 FINDINGS: Single chamber defibrillator on the left. Median sternotomy wires and CABG clips. Probable Central vascular congestion. No pneumothorax is seen. Normal size heart. Normal mediastinum and giovanni. Normal visualized pulmonary arteries. Normal visualized aortic arch and descending thoracic aorta. There are diffuse degenerative changes of the visualized thoracic spine. Normal visualized ribs, clavicles, and shoulders. IVC filter. RAD/Chest PA and Lateral IMPRESSION: No pneumothorax is seen. Electronically Signed: Kal Higginbotham MD at 7:18 EDT Tel , Service support , CC: Giorgio Joyner MD; Ramo Moreira III, MD Button Puncher: Signed CHEST 1 VIEW Observed: 10/05/2017 Status: F Source: [place] (PORTABLE) 1:50 PM [facility] REPOSITORY [facility] Imaging Services [address] [place] [address] Chest 1 View (Portable) MR#: [id number] Acct: [id number] Name: ANGIE DIXON Rep #: [id number] : 1945 72 From: Renard Castro MD PCP: Ramo Moreira III, MD Status: REG [facility] Study: Chest 1 View (Portable) Date of Exam: 10/05/17 Exam# [id number] Ordering Dr: Giorgio Joyner MD STUDY: X-RAY CHEST REASON FOR EXAM: Male, 72 years old. Post ICD placement. TECHNIQUE: Single PA view of the chest. COMPARISON: Comparison is made with prior study dated September 04, 2017. FINDINGS: EKG electrodes are seen. There is no evidence of pneumothorax. There is no demonstrated pleural abnormality. Sternal cerclage wires and vascular clips are present from a prior sternotomy and coronary artery bypass graft procedure (CABG). A left-sided ICD is seen. Normal mediastinum and giovanni. Normal visualized pulmonary arteries. Normal visualized aortic arch and descending thoracic aorta. There is a dextroscoliosis of the thoracic spine. Normal visualized ribs, clavicles, and shoulders. There is no demonstrated abnormality of the visualized soft tissue structures of the upper abdomen. RAD/Chest 1 View (Portable) IMPRESSION: No acute abnormality is seen. Status post left ICD placement. Electronically Signed: Renard Castro MD at 15:13 EDT Tel [phone], Service support , CC: Giorgio Joyner MD; Ramo Moreira III, MD Button Puncher: Signed OPERATIVE REPORT Observed: 10/05/2017 Status: F Source: [place] 12:36 PM [facility] REPOSITORY [facility] Medical Records Department [address] [place] [address] Operative Report 10/05/17 1234 MR#: [id number] Acct: [id number] Name: ANGIE DIXON Rep #: [id number] : 1945 72 From: Giorgio Joyner MD PCP: Ramo Moreira III, MD Status: REG [facility] Location: [facility] Operative Report Date of Procedure: 10/05/17 Preoperative diagnosis implantation of Single chamber, single coil ICD Postoperative diagnosis same as above After informed consent and IV antibiotics the patient was brought to the [facility]. The left side of the chest was prepped and draped in the usual sterile manner. The patient was sedated with intermittent boluses of IV Versed fentanyl and propofol as well as subcutaneous 1% lidocaine. An incision was made inferior to the clavicle to accommodate the size of the hardware device. The pocket was created using blunt and Bovie dissection. Hemostasis was obtained. Using the Seldinger technique the axillary vein was cannulated once and a guidewire was advanced under fluoroscopic guidance. Over the guidewire a sheath was advanced. Through this sheath, the electrode was positioned under fluoroscopic guidance into the right ventricle and was actively fixated. Once actively fixated, the lead was tested to check for proper sensing, capture threshold, impedance and to exclude diaphragmatic stimulation. Once the lead was implanted and all electrical parameters were confirmed to be functioning normally with appropriate values, the leads was then sutured to the pectoralis muscle with 2-0 silk on the Silastic collar 2. The sponge and needle count were correct. Hemostasis was obtained. Antibiotic solution was used to flush the pocket. The new device was brought to the field. The lead was placed in the appropriate position of the header of the device and were secured by the setscrews and confirmed by the tug test. The device and the leads were then placed in the pocket. Pocket was closed with a deep layer of running 2-0 Vicryl, superficial layer of running 4-0 Vicryl and skin with Steri-Strips that were covered with a rolled 4 x 4's and Tegaderm. The patient left the lab with the device programmed to chronic parameters. There were no complications. Lead and device serial and model numbers are available in the chart documents provided by the device company specialty sales representative procedure summary. 10/05/17 1236 <Electronically signed by Giorgio Joyner MD> Date Giorgio Joyner MD CC: Giorgio Joyner MD; Ramo Moreira III, MD Signed PACEMAKER CHECK Observed: 09/29/2017 Status: F Source: [facility] 5:51 PM [facility] REPOSITORY [facility] [address] [place] [address] Pacemaker Check Date of Service: 09/29/17 1608 MR#: [id number] Acct: [id number] Name: MARIAMANGIE D Rep #: [id number] : 1945 From: Nat Persaud Age/Sex: 72/M Location: [facility] Status: Signed Billing Codes Nurse, Teaching, Wound Ck (no charge): Yes 09/29/17 1610 <Electronically signed by Nat Persaud > Date Nat Persaud 09/29/17 1751<Electronically signed by Tiffanie FUNK> [facility] Signature: Date (if applicable) Tiffanie Donovan CC: CBC-COMPLETE BLOOD CNT Collected: 09/22/2017 Status: F Source: [place] NO DIFF 11:18 AM [facility] REPOSITORY Order Comment: Comments: For ICD implant Comments: For ICD implant TYPE CODE TESTS RESULT OUT OF RANGE REFERENCE UNITS LAB L100.1000 4.4-11.0 K/mm3 Normal WBC 8.0 LAB L100.1200 4.6-6.2 M/mm3 Low RBC 3.19 LAB L100.1300 13.0-16.5 g/dl Low HGB 9.7 LAB L100.1400 40-54 % Low HCT 30.2 LAB L100.1500 80-94 fL High MCV 94.7 LAB L100.1600 27.0-32.0 pg Normal MCH 30.4 LAB L100.1700 32-36 g/gl Normal MCHC 32.1 LAB L100.1810 11.6-14.6 % Normal RDW CV 14.6 LAB L100.1820 35.1-43.9 fl High RDW SD 50.4 LAB L100.1900 150-450 K/mm3 Normal PLT 311 LAB L100.2000 6.2-12.0 fl Normal MPV 10.0 Performed By: #### L100.0500, L300.3900, L500.2500 #### [facility] [address] [facility] [place], [place], [address] PROTHROMBIN TIME W/INR Collected: 09/22/2017 Status: F Source: [place] 11:18 AM [facility] REPOSITORY Order Comment: Comments: For ICD implant Comments: For ICD implant TYPE CODE TESTS RESULT OUT OF RANGE REFERENCE UNITS LAB L300.4150 11.7-14.9 SECONDS Normal PROTIME 13.9 LAB L300.4200 Normal INR 1.1 Performed By: #### L100.0500, L300.3900, L500.2500 #### [facility] [address] [facility] [place], [place], [address] BASIC METABOLIC Collected: 09/22/2017 Status: F Source: [place] PROFILE (BMP) 11:18 AM [facility] REPOSITORY Order Comment: Comments: For ICD implant Comments: For ICD implant TYPE CODE TESTS RESULT OUT OF RANGE REFERENCE UNITS LAB L501.0100 74-106 mg/dL High GLU 233 Result Comment: Glucose result greater than or equal to 200 mg/dL suggests DIABETES MELLITUS per A.D.A. criteria. Please note revised GLUCOSE reference range effective 2017. LAB L501.1000 7-18 mg/dL High BUN 33 LAB L501.1100 0.70-1.30 mg/dL High CREAT,SERUM 2.98 Result Comment: The validity of the calculated GFR AND GFRAA in patients over 70 years has not been determined. Clinical correlation is essential. LAB L501.1110 >60 mL/min Low EST GFR 22 Result Comment: Non- GFR Calc LAB L501.1115 >60 mL/min Low EST GFR - AA 27 Result Comment: GFR Calc LAB L501.1300 10-20 RATIO Normal BUN/CRE 11.1 LAB L501.2200 8.5-10.1 mg/dL CA Normal 8.6 LAB L501.5300 136-145 mmol/L NA Normal 140 LAB L501.5600 3.5-5.1 mmol/L K Normal 4.5 LAB L501.5900 98-107 mmol/L CL Normal 106 LAB L501.6100 21.0-32.0 mmol/L Normal CO2 24.0 LAB L501.6200 5-15 Normal GAP 10 Performed By: #### L100.0500, L300.3900, L500.2500 #### [facility] [address] [place], [address] URINALYSIS, COMPLETE Collected: 09/22/2017 Status: F Source: [place] 11:18 AM [facility] REPOSITORY Order Comment: Comments: For ICD implant Comments: For ICD implant How was Urine Obtained? YACHT HAND TO SPECIFY TYPE CODE TESTS RESULT OUT OF RANGE REFERENCE UNITS LAB L400.3000 Yellow COLOR Normal Yellow LAB L400.3050 Clear Normal CLARITY Clear LAB L400.3200 Normal mg/dl High GLUCOSE, UR 250 LAB L400.3300 Negative mg/dL Normal BILIRUBIN URINE Negative LAB L400.3400 Negative mg/dl Normal KETONE UR Negative LAB L400.3465 1.002-1.030 Normal SP.GR. DIPSTX 1.015 LAB L400.3550 5.0 - 8.0 pH UR Normal 6.0 LAB L400.3600 Negative mg/dl High PROT DIPSTX 500 LAB L400.3700 Normal mg/dl High 1 UROBILI LAB L400.3750 Negative Normal NITRITE UR Negative LAB L400.3780 Negative /ul High 25 OCCULT BLOOD-UR LAB L400.3800 Negative /ul LEUK Normal ESTERASE Negative LAB L400.4050 0-5 /hpf WBC Normal 0-5 SEEN LAB L400.4100 0-5 /hpf 0 Normal RBC-UA SEEN LAB L400.4150 0-5 /hpf SQUAM 0 Normal EPI SEEN LAB L400.4300 None Seen /hpf 0 Normal BACTERIA SEEN LAB L400.4350 <or=2+ /hpf 0 Normal MUCUS, URINE SEEN Performed By: #### L400.0001 #### [facility] [address] [place], [address] CARDIOLOGY VISIT Observed: 09/22/2017 Status: F Source: [place] REPORT 11:00 AM [facility] REPOSITORY [facility] [address] [place] [address] OFFICE VISIT Date of Service: 09/22/17 MR#: [id number] Acct: [id number] Name: ANGIE DIXON Rep #: [id number] : 1945 Provider: Jayy Sanford MD Age/Sex: 72/M Location: [facility] [place] [place] Status: Signed HPI HPI Chief Complaint: Routine f/u Details: ANGIE DIXON, is a 72 M who presents to the office today for follow-up of his congestive heart failure exacerbation. The patient was admitted in August 2017 with CHF exacerbation. He underwent a repeat left heart catheterization and graft angiography by me on 09/06/showed severe three-vessel coronary artery disease, calcified left main, patent left circumflex stents, occluded saphenous vein graft to the left circumflex, patent saphenous vein graft to the RCA with a patent stent in the middle portion of the graft, patent CHARLES to LAD, and moderate to severe global LV dysfunction with an EF around 30%. He was also found to be extremely hypertensive during the heart cath in the 180s. Patient also has a history of hypertension, hypercholesterolemia, coronary artery disease status post bypass surgery. He is now here in follow-up. Patient blood pressure is much better controlled now with maximal medical therapy. He denies any chest pain, angina, shortness of breath or dyspnea on exertion. He denies any lower extremity edema. He is taking and tolerating his medicines well. In our office today's blood pressure is 130/60, pulse is 72 and regular. His physical exam is as below. His lipids as of 09/01/17 showed HDL 37 and LDL of 126. Unfortunately is unable to tolerate any other statins except for Pravachol. EKG dated 09/04/17 showed sinus tachycardia with left bundle branch block and PVC. Repeat EKG today showed normal sinus rhythm at a rate of 68 bpm, normal axis, normal intervals, no evidence of previous myocardial infarction. Left bundle branch has resolved and appears to be rate dependent. 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[employer] Required: No Is patient in pain?: No Allergies atorvastatin calcium [From Lipitor] Allergy (Verified 09/22/17 08:20) Pain in joints verapamil [From Covera-HS] Allergy (Verified 09/22/17 08:20) passes out lisinopril Adverse Reaction (Verified 09/22/17 08:20) Other Niacin Preparations Adverse Reaction (Verified 09/22/17 08:20) Pain in joints Cholesterol Meds Adverse Reaction (Uncoded 09/05/17 01:41) Other Medications Allopurinol [Zyloprim] 300 mg PO DAILY 12/02/13 [History Confirmed 09/22/17] Mirtazapine [Remeron] 15 mg PO QHS 12/02/13 [History Confirmed 09/22/17] Doxazosin Mesylate [Cardura] 2 mg PO QHS 01/30/15 [History Confirmed 09/22/17] Insulin Glargine,Hum.rec.anlog [Lantus] 14 unit SQ BREAKFAST 08/20/15 [History Confirmed 09/22/17] Venlafaxine XR [Effexor Xr] 150 mg PO DAILY 10/06/15 [History Confirmed 09/22/17] Clopidogrel Bisulfate [Plavix] 75 mg PO DAILY #0 12/04/15 [Rx Confirmed 09/22/17] Potassium Chloride 1 tab PO DAILY 08/31/17 [History Confirmed 09/22/17] Aspirin [Aspirin, Baby] 81 mg PO DAILY@0800 #30 tab.chew 09/01/17 [Rx Confirmed 09/22/17] Isosorbide Mononitrate [Imdur] 60 mg PO DAILY #30 tab 09/01/17 [Rx Confirmed 09/22/17] Pantoprazole Sodium [Protonix] 40 mg PO BID #60 tab 09/01/17 [Rx Confirmed 09/22/17] Pravastatin [Pravachol] 40 mg PO QHS #30 tab 09/01/17 [Rx Confirmed 09/22/17] ALPRAZolam [Xanax] 0.5 mg PO BID PRN PRN #30 tab 09/08/17 [Rx Confirmed 09/22/17] Carvedilol [Coreg (Beta Pedro)] 25 mg PO BID #90 tab 09/08/17 [Rx Confirmed 09/22/17] hydrALAZINE [Apresoline] 50 mg PO BID #90 tab 09/08/17 [Rx Confirmed 09/22/17] FORMERLY [facility], [facility]–1983 Medical History Atherosclerotic heart disease of [place] coronary artery with other forms of angina pectoris (Chronic) DM2 (diabetes mellitus, type 2) (Chronic) CKD (chronic kidney disease), stage IV (Chronic) History of pulmonary embolism (Chronic) History of hypertension (Chronic) History of hyperlipidemia (Chronic) History of gout (Chronic) 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 Social History Smoking Status: Former smoker ROS Const Const: Positive for other (Had cath 09/06/17); negative for fatigue, weakness, body ache, fever(s), headache(s), chills, frequent falls, night sweats, daytime sleepiness, difficulty sleeping, excessive sweating, weight gain, weight loss, increased appetite, poor appetite or anorexia Eyes Eyes: Negative for blind spots, loss of peripheral vision, transient loss of vision, blurry vision, change in vision, double vision, floaters, tunnel vision or other ENT ENT: Negative for headache(s), dizziness, hearing loss, tinnitus, Nosebleed/epistaxis, balance problems, post nasal drip, lip swelling, tongue swelling, bleeding gums, hoarseness, neck pain, dry mouth or other Cardio Chest Pain: No Palpitations: No Edema: None Muscle aches with walking: None Resp Respiratory: Negative for SOB with activity, SOB at rest, SOB orthopnea\SOB lying down, Cough, Coughing up blood/hemoptysis, chest congestion, pain on inspiration, snoring, stridor, wheezing, crackles, paroxysmal nocturnal dyspnea or other GI GI: Negative nausea, vomiting, heartburn, constipation, belching, bloating, cramping, vomiting blood/hematemesis, bright, red blood in stools, black,tarry stools, loose stools, Difficulty Swallowing or other : Negative for hematuria, frequent nighttime urination/ nocturia, erectile dysfunction or abnormal vaginal bleeding Musc Musc: Negative for balance problems, muscle aches/ myalgia, muscle weakness or joint pain Skin Skin: Negative redness, non-healing lesions, rash, unusual bruising, skin ulcer, wounds, jaundice or other Neuro Neuro: Negative for weakness, headache(s), frequent falls, blurry vision, double vision, dizziness, lightheadedness, near syncope, syncope, orthostatic symptoms, confusion, memory loss, restless legs, vertigo, seizures, lack of coordination or other Gage Hematologic/Lymphatic: Negative for easy bleeding, easy bruising, enlarged lymph nodes or other Endo Endo: Negative for fatigue, excessive sweating, cold intolerance, heat intolerance, flushing, increased thirst/drinking, increased hunger, hair loss, hair growth or other Psych Psych: Negative for anxiety, depression, thoughts of harming anyone, thoughts of harming yourself, visual hallucinations, panic attacks or audible hallucinations Allergy Allergy/Immunology: Negative for lip swelling, Negative for tongue swelling, Negative for rash, Negative for throat swelling, Negative for hives Cardiology Exam Const Appearance: cooperative, healthy appearing and no acute distress Nutritional Appearance: well nourished Orientation: alert, oriented x3 and oriented to person Head Head: normal to inspection, atraumatic and normocephalic Nose: external nose normal Face and Sinus: face symmetric Mouth: oral mucosae normal Eyes General: appearance normal, both eyes and all related structures Eyelids: eyelids normal Conjunctivae: conjunctivae normal Pupils: PERRL and normal by confrontation EOM: EOM intact bilaterally Neck Neck: normal visual inspection and full ROM Carotids: normal carotid upstroke Chest Chest inspection: normal inspection of the chest Auscultation: Bilateral: Clear to Auscultation Cardio Palpation: normal PMI Rate: regular rate Rhythm: regular rhythm Heart sounds: S1 normal and S2 normal GI GI: normal to inspection, no hepatosplenomegaly and bowel sounds present Neuro General: alert, oriented x3, awake, CN's II-XI intact bilaterally and moves all extremities Skin Skin: no rashes or lesions noted Extremities Pulses: Normal: Right Femoral Pulse, Left Femoral Pulse, Right Dorsalis Pedis Pulse, Left Dorsalis Pedis Pulse, Right Posterior Tibial Pulse, Left Posterior Tibial Pulse, Right Radial Pulse, Left Radial Pulse Lower Extremity Edema: None: Bilateral Psych Psychological: normal affect Assessment AND Plan 1. Atherosclerotic heart disease of [place] coronary artery with other forms of angina pectoris I25.118 Plan 1. Coronary artery disease: Patient status post catheterization on 09/06/17 which demonstrated widely patent grafts, occluded saphenous vein graft to the circumflex, patent stents to his circumflex, patent stent in the saphenous vein graft to his RCA and overall fairly diminished LV function with an EF around 30% by catheterization. Patient initially had sinus tachycardia with left bundle but appears to be rate dependent as his EKG today demonstrates normal sinus rhythm, normal axis, normal intervals, and resolution of his left bundle at a slower heart rate I believe the patient would benefit from evaluation of ICD therapy given his severe LV dysfunction. We will make arrangements for the patient to be seen by Dr. Joyner this upcoming for possible prophylactic AICD placement. 2. History of hyperlipidemia Z86.39 Plan 2. Hyperlipidemia: Unfortunately the patient is able to tolerate most statins and niacin however he appears to be tolerating Pravachol well. Although his LDL is not optimized, this is about as good as we can get for right now. Continue Pravachol. Patient is unable to exercise well due to his knees although he is fairly active. 3. LV dysfunction I51.9 Plan 3. LV dysfunction: The patient's blood pressure is much better controlled today on multiple medical therapy. Recommend he continue his hydralazine, doxazosin, Coreg, Imdur. 4. Return to office in 6 months. This note was generated using a voice recognition system and there may be incorrect words, spelling or punctuation that were not noted when reviewing the office note prior to saving. Plan Detail Other Orders Orders: Follow Up +6M (Akil) Coding Level of Care Code Off vis,est,level 3 Diagnoses Atherosclerotic heart disease of [place] coronary artery with other forms of angina pectoris I25.118 History of hyperlipidemia Z86.39 LV dysfunction I51.9 Coding Level of Care Code Off vis,est,level 3 Diagnoses Atherosclerotic heart disease of [place] coronary artery with other forms of angina pectoris I25.118 History of hyperlipidemia Z86.39 LV dysfunction I51.9 09/22/17 1100 <Electronically signed by Jayy Sanford MD> Date Jayy Sanford MD Cosigner Signature: Date (if applicable) CC: Ramo Moreira III, MD 12 LEAD EKG PERFORMED Observed: 09/22/2017 Status: F Source: [facility] – [place] 10:51 AM [facility] [place] REPOS[facility] [address] [place] [address] 12 Lead EKG performed by [facility] – [place] 09/22/17 1050 MR#: [id number] Acct: [id number] Name: ANGIE DIXON Rep #: [id number] : 1945 72 From: Jayy Sanford MD Attending Dr: Jayy Sanford MD Status: DEP AMB Ordering Dr: Jayy Sanford MD Date: 09/22/17 Location: [facility] [place] Sex: M C Admitted: [facility] [place]/12 Lead EKG performed by [facility] [place] ECG Report Interpretation Sinus Rhythm WITHIN NORMAL LIMITSElectronically signed on 01/26/2018 at 15:22 by Jayy Sanford Software Version 8610 01/26/18 1526 Date Jayy Sanford MD CC: Ramo Moreira III, MD Date Dictated: 09/22/17 1050 Date Transcribed: 09/22/171049 Button Puncher: Signed PROGRESS Observed: 09/18/2017 Status: COMPLETED Source: [place] 3:11 PM [facility] REPOSITORY HNO ID: [id number] Author: Ramo Moreira III Service: (none) Author Type: Physician Type: Progress Notes Filed: 09/18/2017 6:10 PM Note Text: TRANSITION CARE MANAGEMENT (TCM) INITIAL CONTACT Trade Manager Outreach ? Provider Action/FYI: [facility]-admitted (2nd time) on 09/05, discharged on 09/08 ? ? Initial contact with patient post discharge, spoke to patient. Patient identified by name and . ? SUMMARY: -Pt discharged from [facility] on 09/08/2017. -Admitted for: atypical chest pain, hypertensive crisis ? Do you have a hospital follow up appointment with your PCP? Appointment on 09/18/2017 with PCP. Yes ? MEDICATIONS: Many patients have questions or concerns about their medications once they are home. Were you prescribed any new medications? No ? Were you told to hold any medications? No Were any of your medications discontinued? No ? Do you have any questions about getting or taking your medications? No ? Your discharge instructions/After visit Summary (AVS) are important in guiding you through the recovery process. Is there anything I might help you understand? No ? Do you have all the necessary equipment and supplies at home? Yes ? Medical records from recent hospitalization: Placed for provider to review ? Roseanne Sarabia CMA Visit for Transitional Care Management CC: Angie is a 72 year old male following 10, days after the Hospital/Prison Discharge. All records reviewed Patient was started on diltiazem CD 120 mg daily, hydralazine 50 mg twice a day, and Coreg increased 25 mg twice a day. Same other medications HPI: [facility] admission 09/05- for eval of unstable angina and hypertension. Stress echocardiogram did not demonstrate ischemia. Subsequent heart catheterization demonstrated diffuse atherosclerotic disease with possibly significant proximal left main disease with significant calcification. Dr. Sanford (spice miller) suggested referral for Rotoblation for intervention. Home BP: 108/58; 127/63; 117/72; 177/85; PAST MEDICAL HISTORY: PAST MEDICAL HISTORY Diagnosis Date - ASHD (arteriosclerotic heart disease) 2007 CABG 3, [place] - BPH (benign prostatic hypertrophy) with urinary obstruction 07/09/2014 - CAD (coronary artery disease) - Chronic renal insufficiency - DVT of upper extremity (deep vein thrombosis) ([facility]) - Esophageal reflux - Essential hypertension, benign - Gout 04/22/2010 - Iatrogenic pulmonary embolism and infarction ([facility]) - NSTEMI (non-ST elevated myocardial infarction) ([facility]) 2012 - Other and unspecified hyperlipidemia - Type 2 diabetes mellitus with stage 4 chronic kidney disease ([facility]) 06/05/2015 - Unequal leg length (acquired) ALLERGIES: ALLERGIES Allergen Reactions - Covera-Hs [Verapami* Intolerance passed out - Lisinopril Cough - Niaspan [Niacin] Rash MEDICATIONS: Current Outpatient Prescriptions: pantoprazole DR (PROTONIX) 40 mg tablet Take 40 mg by mouth once daily. ALPRAZolam (XANAX) 0.5 mg tablet Take 0.5 mg by mouth twice daily as needed. carvedilol (COREG) 25 mg tablet Take 25 mg by mouth twice daily with meals. hydrALAZINE (APRESOLINE) 50 mg tablet Take 50 mg by mouth twice daily. potassium chloride once daily. isosorbide mononitrate ER (IMDUR) 60 mg 24 hr tablet Take 60 mg by mouth once daily. allopurinol (ZYLOPRIM) 100 mg tablet Take 1 tablet by mouth once daily. For gout. venlafaxine (EFFEXOR) 75 mg tablet Take 2 tablets by mouth once daily. insulin glargine (LANTUS SOLOSTAR U-100 INSULIN) 100 unit/mL (3 mL) inpn Inject 14 Units subcutaneously once daily. doxazosin (CARDURA) 4 mg tablet Take 1 tablet by mouth once daily. clotrimazole-betamethasone (LOTRISONE) cream Apply 1 application to affected area twice daily. Insulin [place], Disposable, (PEN NEEDLE) 29 gauge X 1/2 ndle Use one needle per dose. one per day aspirin, enteric coated (ASPIR-LOW) 81 mg EC tablet Take 1 tablet by mouth once daily. clopidogrel (PLAVIX) 75 mg tablet Take 1 tablet by mouth once daily. 9274 mirtazapine 15 mg tablet Take 1 tablet by mouth daily at bedtime. amLODIPine (NORVASC) 5 mg tablet Take 1 tablet by mouth once daily. (Patient not taking: Reported on 09/18/2017 ) metoprolol tartrate, short acting, (LOPRESSOR) 50 mg tablet Take 1 tablet by mouth twice daily. (Patient not taking: Reported on 09/18/2017 ) pravastatin (PRAVACHOL) 20 mg tablet Take 20 mg by mouth once daily. omeprazole (PRILOSEC) 20 mg capsule Take 1 capsule by mouth once daily. No current facility-administered medications for this visit. SOCIAL HISTORY: Social History Substance Use Topics - Smoking status: Former Smoker Packs/day: 3.00 Years: 3.00 Types: Cigarettes Quit date: 09/20/1971 - Smokeless tobacco: Never Used - Alcohol use No FAMILY HISTORY: FAMILY HISTORY Problem Relation Age of Onset - Stroke Mother - Stroke Father REVIEW OF SYSTEMS: NECK: Negative for lumps, goiter, pain and significant neck swelling RESPIRATORY: Negative for cough, hemoptysis, wheezing, COPD, dyspnea or shortness of breath CARDIOVASCULAR: He does not have chest pain or angina since discharge. However he does have a long history of calf pain when walking about half a block. He thought this was caused by his statin medication but he does not have Pain at rest but only after walking about a half a block. GI: No nausea, vomiting, or diarrhea MUSCULOSKELETAL: He does have known peripheral artery artery disease from evaluation in 2016. Reports reviewed and discussed with patient. I did discuss that this Pain is caused by peripheral artery disease and not due to statin intolerance. Depression--stable on effexor and remeron. PTSD fairly well controlled--bad dreams 1/mo. PHYSICAL EXAMINATION BP 140/78 Pulse 82 Resp 18 Wt 171 lb (77.6kg) General appearance: well appearing, alert, in no acute distress and well-hydrated, well nourished Skin: Skin color, texture, turgor normal, no suspicious rashes or lesions Head: normal Eyes: Ears: Nose/Sinuses: Oropharynx: Neck: Supple, no adenopathy; thyroid symmetric, normal size, no bruits Back: no pain to palpation Lungs: clear to auscultation, no wheezing or rhonchi Heart: RRR without murmur, gallop, or rubs. No ectopy Abdomen: Normal abdominal exam, Abdomen soft, non-tender. Bowel sounds normal. No masses, organomegaly Extremities: Normal right dorsal pedal pulse but absent left dorsal pedal pulse. Both feet are warm with normal color. Musculoskeletal: Peripheral pulses: Normal right dorsal pedal pulse. Absent left dorsal pedal pulse Neuro: Gait normal. Appearance: well dressed well groomed, cooperative and pleasant Behavior: good eye contact Speech: fluent and coherent Mood: euthymic Affect: appropriate Perceptions: none Thought process: goal directed Thought Content: normal Intelligence level: normal Insight: good Judgment: good Non-Invasive Vascular Laboratory [facility] ? Lower Extremity Arterial Duplex Bilateral/Complete Date of service/time: 09/16/2015 1:46:09 PM Name: MR. ANGIE DIXON Date of : 1945 Age: 70 years Gender: M ? Medical History Tobacco: Former Coronary disease: Yes Myocardial infarction: Yes CABG: Yes PAD: Yes Diabetes: Yes Chronic Kidney Disease ? Clinical Indication Leg claudication. ? TECHNIQUE -------- An arterial duplex ultrasound examination was performed, including grayscale imaging and color Doppler and spectral Doppler examination of the below mentioned arteries. ? FINDINGS -------- ? RIGHT ARTERIES ? Right Pressures Brachial: 159 mmHg Ankle dorsalis pedis: 130 mmHg Ankle posterior tibial: 140 mmHg Digit: 109 mmHg External iliac distal: Plaque present. PSV: 205 cm/s. EDV: 7 cm/s. Common femoral proximal: Plaque present. PSV: 247 cm/s. EDV: 10 cm/s. Common femoral mid: Plaque present. PSV: 163 cm/s. EDV: 11 cm/s. Common femoral distal: Plaque present. PSV: 201 cm/s. EDV: 7 cm/s. Profunda femoral proximal: Plaque present. PSV: 259 cm/s. EDV: 0 cm/s. Superficial femoral origin: Plaque present. PSV: 409 cm/s. EDV: 29 cm/s. Superficial femoral proximal: Plaque present. PSV: 97 cm/s. EDV: 10 cm/s. Superficial femoral mid: Plaque present. PSV: 110 cm/s. EDV: 0 cm/s. Superficial femoral distal: PSV: 133 cm/s. EDV: 7 cm/s. Popliteal proximal: PSV: 75 cm/s. EDV: 0 cm/s. Popliteal mid: PSV: 75 cm/s. EDV: 6 cm/s. Popliteal distal: PSV: 78 cm/s. EDV: 0 cm/s. Posterior tibial proximal: PSV: 73 cm/s. EDV: 0 cm/s. Posterior tibial mid: Plaque present. PSV: 85 cm/s. EDV: 0 cm/s. Posterior tibial distal: PSV: 59 cm/s. EDV: 0 cm/s. Peroneal proximal: PSV: 38 cm/s. EDV: 4 cm/s. Peroneal mid: PSV: 37 cm/s. EDV: 0 cm/s. Peroneal distal: PSV: 34 cm/s. EDV: 2 cm/s. Anterior tibial proximal: PSV: 20 cm/s. EDV: 0 cm/s. VESSEL/GRAFT Superficial femoral artery proximal: PSV: 168 cm/s. EDV: 0 cm/s. Superficial femoral artery tray's canal: PSV: 86 cm/s. EDV: 0 cm/s. Anterior tibial artery origin: PSV: 55 cm/s. EDV: 0 cm/s. Posterior tibial artery origin: PSV: 96 cm/s. EDV: 0 cm/s. Peroneal artery origin: PSV: 96 cm/s. EDV: 0 cm/s. ? LEFT ARTERIES ? Left Pressures Ankle dorsalis pedis: 151 mmHg Ankle posterior tibial: 142 mmHg Digit: 98 mmHg External iliac distal: Plaque present. PSV: 109 cm/s. EDV: 0 cm/s. Common femoral proximal: Plaque present. PSV: 110 cm/s. EDV: 0 cm/s. Common femoral mid: Plaque present. PSV: 100 cm/s. EDV: 0 cm/s. Common femoral distal: Plaque present. PSV: 107 cm/s. EDV: 0 cm/s. Profunda femoral proximal: PSV: 107 cm/s. EDV: 0 cm/s. Superficial femoral origin: PSV: 134 cm/s. EDV: 0 cm/s. Superficial femoral proximal: PSV: 98 cm/s. EDV: 0 cm/s. Superficial femoral mid: PSV: 97 cm/s. EDV: 0 cm/s. Superficial femoral distal: PSV: 77 cm/s. EDV: 0 cm/s. Popliteal proximal: Plaque present. PSV: 203 cm/s. EDV: 0 cm/s. Popliteal mid: PSV: 87 cm/s. EDV: 0 cm/s. Popliteal distal: Plaque present. PSV: 82 cm/s. EDV: 0 cm/s. Posterior tibial proximal: PSV: 75 cm/s. EDV: 0 cm/s. Posterior tibial mid: PSV: 66 cm/s. EDV: 0 cm/s. Posterior tibial distal: PSV: 64 cm/s. EDV: 0 cm/s. Peroneal proximal: PSV: 28 cm/s. EDV: 0 cm/s. Peroneal mid: PSV: 32 cm/s. EDV: 0 cm/s. Peroneal distal: PSV: 36 cm/s. EDV: 0 cm/s. Anterior tibial proximal: PSV: 46 cm/s. EDV: 0 cm/s. Anterior tibial mid: PSV: 48 cm/s. EDV: 3 cm/s. Anterior tibial distal: PSV: 35 cm/s. EDV: 0 cm/s. VESSEL/GRAFT Superficial femoral artery proximal: PSV: 149 cm/s. EDV: 0 cm/s. Superficial femoral artery tray's canal: PSV: 151 cm/s. EDV: 0 cm/s. Anterior tibial artery origin: PSV: 59 cm/s. EDV: 4 cm/s. Posterior tibial artery origin: PSV: 42 cm/s. EDV: 0 cm/s. Peroneal artery origin: PSV: 71 cm/s. EDV: 0 cm/s. ? IMPRESSION RIGHT SIDE ? Right ankle brachial index: 0.88 Right toe brachial index: 0.69 External iliac artery distal: 50-99% stenosis . Common femoral artery : 50-99% stenosis . Profunda femoral artery origin: 50-99% stenosis . Superficial femoral artery origin: 50-99% stenosis . LEFT SIDE ? Left ankle brachial index: 0.95 Left toe brachial index: 0.62 Popliteal artery origin: 50-99% stenosis . ? Technologist: Amy Loza RVT Ordering physician: YINKA RIUZ (PA) ? Interpreting physician: YOMI Teague MD ? : ASHD, unstable angina hypertension--at goal PAD with claudication ch renal failure, CKD IV major depression--stable PTSD--stable Plan: healthy diet and activity as able keep appt with Dr Sanford as appointed same medications discuss with Dr Sanford possibility of increasing diltiazem 180 mg daily for palpitations; advisability of referral to Dr James Moreira for evaluation of peripheral artery disease. JENNY Pitts MD, III MD September 18, 2017 3:13 PM CNOV Observed: 09/18/2017 Status: COMPLETED Source: [place] 3:00 PM [facility] REPOSITORY Office Visit (FAMPWS) ANGIE DIXON ([id number]) 1945 M Date Time Provider Department 09/18/17 3:00 PM RAMO MOREIRA III During your visit today, we recorded the following information about you: Pulse Respiration Blood pressure Weight 82/minute 18/minute 140/78 77.6 kg Ramo Moreira III MD 09/18/2017 6:10 PM Addendum TRANSITION CARE MANAGEMENT (TCM) INITIAL CONTACT Trade Manager Outreach ? Provider Action/FYI: [facility]-admitted (2nd time) on 09/05, discharged on 09/08 ? ? Initial contact with patient post discharge, spoke to patient. Patient identified by name and . ? SUMMARY: -Pt discharged from [facility] on 09/08/2017. -Admitted for: atypical chest pain, hypertensive crisis ? Do you have a hospital follow up appointment with your PCP? Appointment on 09/18/2017 with PCP. Yes ? MEDICATIONS: Many patients have questions or concerns about their medications once they are home. Were you prescribed any new medications? No ? Were you told to hold any medications? No Were any of your medications discontinued? No ? Do you have any questions about getting or taking your medications? No ? Your discharge instructions/After visit Summary (AVS) are important in guiding you through the recovery process. Is there anything I might help you understand? No ? Do you have all the necessary equipment and supplies at home? Yes ? Medical records from recent hospitalization: Placed for provider to review ? Roseanne SarabiaELECTRIC WIRER Visit for Transitional Care Management CC: Angie is a 72 year old male following 10, days after the Hospital/Prison Discharge. All records reviewed Patient was started on diltiazem CD 120 mg daily, hydralazine 50 mg twice a day, and Coreg increased 25 mg twice a day. Same other medications HPI: [facility] admission 09/05- for eval of unstable angina and hypertension. Stress echocardiogram did not demonstrate ischemia. Subsequent heart catheterization demonstrated diffuse atherosclerotic disease with possibly significant proximal left main disease with significant calcification. Dr. Sanford (spice miller) suggested referral for Rotoblation for intervention. Home BP: 108/58; 127/63; 117/72; 177/85; PAST MEDICAL HISTORY: PAST MEDICAL HISTORY Diagnosis Date - ASHD (arteriosclerotic heart disease) 2006 CABG 3, [place] - BPH (benign prostatic hypertrophy) with urinary obstruction 07/09/2014 - CAD (coronary artery disease) - Chronic renal insufficiency - DVT of upper extremity (deep vein thrombosis) ([facility]) - Esophageal reflux - Essential hypertension, benign - Gout 04/22/2010 - Iatrogenic pulmonary embolism and infarction ([facility]) - NSTEMI (non-ST elevated myocardial infarction) ([facility]) 2012 - Other and unspecified hyperlipidemia - Type 2 diabetes mellitus with stage 4 chronic kidney disease ([facility]) 06/05/2015 - Unequal leg length (acquired) ALLERGIES: ALLERGIES Allergen Reactions - Covera-Hs [Verapami* Intolerance passed out - Lisinopril Cough - Niaspan [Niacin] Rash MEDICATIONS: Current Outpatient Prescriptions: pantoprazole DR (PROTONIX) 40 mg tablet Take 40 mg by mouth once daily. ALPRAZolam (XANAX) 0.5 mg tablet Take 0.5 mg by mouth twice daily as needed. carvedilol (COREG) 25 mg tablet Take 25 mg by mouth twice daily with meals. hydrALAZINE (APRESOLINE) 50 mg tablet Take 50 mg by mouth twice daily. potassium chloride once daily. isosorbide mononitrate ER (IMDUR) 60 mg 24 hr tablet Take 60 mg by mouth once daily. allopurinol (ZYLOPRIM) 100 mg tablet Take 1 tablet by mouth once daily. For gout. venlafaxine (EFFEXOR) 75 mg tablet Take 2 tablets by mouth once daily. insulin glargine (LANTUS SOLOSTAR U-100 INSULIN) 100 unit/mL (3 mL) inpn Inject 14 Units subcutaneously once daily. doxazosin (CARDURA) 4 mg tablet Take 1 tablet by mouth once daily. clotrimazole-betamethasone (LOTRISONE) cream Apply 1 application to affected area twice daily. Insulin [place], Disposable, (PEN NEEDLE) 29 gauge X 1/2 ndle Use one needle per dose. one per day aspirin, enteric coated (ASPIR-LOW) 81 mg EC tablet Take 1 tablet by mouth once daily. clopidogrel (PLAVIX) 75 mg tablet Take 1 tablet by mouth once daily. 9274 mirtazapine 15 mg tablet Take 1 tablet by mouth daily at bedtime. amLODIPine (NORVASC) 5 mg tablet Take 1 tablet by mouth once daily. (Patient not taking: Reported on 09/18/2017 ) metoprolol tartrate, short acting, (LOPRESSOR) 50 mg tablet Take 1 tablet by mouth twice daily. (Patient not taking: Reported on 09/18/2017 ) pravastatin (PRAVACHOL) 20 mg tablet Take 20 mg by mouth once daily. omeprazole (PRILOSEC) 20 mg capsule Take 1 capsule by mouth once daily. No current facility-administered medications for this visit. SOCIAL HISTORY: Social History Substance Use Topics - Smoking status: Former Smoker Packs/day: 3.00 Years: 3.00 Types: Cigarettes Quit date: 09/20/1971 - Smokeless tobacco: Never Used - Alcohol use No FAMILY HISTORY: FAMILY HISTORY Problem Relation Age of Onset - Stroke Mother - Stroke Father REVIEW OF SYSTEMS: NECK: Negative for lumps, goiter, pain and significant neck swelling RESPIRATORY: Negative for cough, hemoptysis, wheezing, COPD, dyspnea or shortness of breath CARDIOVASCULAR: He does not have chest pain or angina since discharge. However he does have a long history of calf pain when walking about half a block. He thought this was caused by his statin medication but he does not have Pain at rest but only after walking about a half a block. GI: No nausea, vomiting, or diarrhea MUSCULOSKELETAL: He does have known peripheral artery artery disease from evaluation in 2016. Reports reviewed and discussed with patient. I did discuss that this Pain is caused by peripheral artery disease and not due to statin intolerance. Depression--stable on effexor and remeron. PTSD fairly well controlled--bad dreams 1/mo. PHYSICAL EXAMINATION BP 140/78 Pulse 82 Resp 18 Wt 171 lb (77.6kg) General appearance: well appearing, alert, in no acute distress and well-hydrated, well nourished Skin: Skin color, texture, turgor normal, no suspicious rashes or lesions Head: normal Eyes: Ears: Nose/Sinuses: Oropharynx: Neck: Supple, no adenopathy; thyroid symmetric, normal size, no bruits Back: no pain to palpation Lungs: clear to auscultation, no wheezing or rhonchi Heart: RRR without murmur, gallop, or rubs. No ectopy Abdomen: Normal abdominal exam, Abdomen soft, non-tender. Bowel sounds normal. No masses, organomegaly Extremities: Normal right dorsal pedal pulse but absent left dorsal pedal pulse. Both feet are warm with normal color. Musculoskeletal: Peripheral pulses: Normal right dorsal pedal pulse. Absent left dorsal pedal pulse Neuro: Gait normal. Appearance: well dressed well groomed, cooperative and pleasant Behavior: good eye contact Speech: fluent and coherent Mood: euthymic Affect: appropriate Perceptions: none Thought process: goal directed Thought Content: normal Intelligence level: normal Insight: good Judgment: good Non-Invasive Vascular Laboratory [facility] ? Lower Extremity Arterial Duplex Bilateral/Complete Date of service/time: 09/16/2015 1:46:09 PM Name: MR. ANGIE DIXON Date of : 1945 Age: 70 years Gender: M ? Medical History Tobacco: Former Coronary disease: Yes Myocardial infarction: Yes CABG: Yes PAD: Yes Diabetes: Yes Chronic Kidney Disease ? Clinical Indication Leg claudication. ? TECHNIQUE -------- An arterial duplex ultrasound examination was performed, including grayscale imaging and color Doppler and spectral Doppler examination of the below mentioned arteries. ? FINDINGS -------- ? RIGHT ARTERIES ? Right Pressures Brachial: 159 mmHg Ankle dorsalis pedis: 130 mmHg Ankle posterior tibial: 140 mmHg Digit: 109 mmHg External iliac distal: Plaque present. PSV: 205 cm/s. EDV: 7 cm/s. Common femoral proximal: Plaque present. PSV: 247 cm/s. EDV: 10 cm/s. Common femoral mid: Plaque present. PSV: 163 cm/s. EDV: 11 cm/s. Common femoral distal: Plaque present. PSV: 201 cm/s. EDV: 7 cm/s. Profunda femoral proximal: Plaque present. PSV: 259 cm/s. EDV: 0 cm/s. Superficial femoral origin: Plaque present. PSV: 409 cm/s. EDV: 29 cm/s. Superficial femoral proximal: Plaque present. PSV: 97 cm/s. EDV: 10 cm/s. Superficial femoral mid: Plaque present. PSV: 110 cm/s. EDV: 0 cm/s. Superficial femoral distal: PSV: 133 cm/s. EDV: 7 cm/s. Popliteal proximal: PSV: 75 cm/s. EDV: 0 cm/s. Popliteal mid: PSV: 75 cm/s. EDV: 6 cm/s. Popliteal distal: PSV: 78 cm/s. EDV: 0 cm/s. Posterior tibial proximal: PSV: 73 cm/s. EDV: 0 cm/s. Posterior tibial mid: Plaque present. PSV: 85 cm/s. EDV: 0 cm/s. Posterior tibial distal: PSV: 59 cm/s. EDV: 0 cm/s. Peroneal proximal: PSV: 38 cm/s. EDV: 4 cm/s. Peroneal mid: PSV: 37 cm/s. EDV: 0 cm/s. Peroneal distal: PSV: 34 cm/s. EDV: 2 cm/s. Anterior tibial proximal: PSV: 20 cm/s. EDV: 0 cm/s. VESSEL/GRAFT Superficial femoral artery proximal: PSV: 168 cm/s. EDV: 0 cm/s. Superficial femoral artery tray's canal: PSV: 86 cm/s. EDV: 0 cm/s. Anterior tibial artery origin: PSV: 55 cm/s. EDV: 0 cm/s. Posterior tibial artery origin: PSV: 96 cm/s. EDV: 0 cm/s. Peroneal artery origin: PSV: 96 cm/s. EDV: 0 cm/s. ? LEFT ARTERIES ? Left Pressures Ankle dorsalis pedis: 151 mmHg Ankle posterior tibial: 142 mmHg Digit: 98 mmHg External iliac distal: Plaque present. PSV: 109 cm/s. EDV: 0 cm/s. Common femoral proximal: Plaque present. PSV: 110 cm/s. EDV: 0 cm/s. Common femoral mid: Plaque present. PSV: 100 cm/s. EDV: 0 cm/s. Common femoral distal: Plaque present. PSV: 107 cm/s. EDV: 0 cm/s. Profunda femoral proximal: PSV: 107 cm/s. EDV: 0 cm/s. Superficial femoral origin: PSV: 134 cm/s. EDV: 0 cm/s. Superficial femoral proximal: PSV: 98 cm/s. EDV: 0 cm/s. Superficial femoral mid: PSV: 97 cm/s. EDV: 0 cm/s. Superficial femoral distal: PSV: 77 cm/s. EDV: 0 cm/s. Popliteal proximal: Plaque present. PSV: 203 cm/s. EDV: 0 cm/s. Popliteal mid: PSV: 87 cm/s. EDV: 0 cm/s. Popliteal distal: Plaque present. PSV: 82 cm/s. EDV: 0 cm/s. Posterior tibial proximal: PSV: 75 cm/s. EDV: 0 cm/s. Posterior tibial mid: PSV: 66 cm/s. EDV: 0 cm/s. Posterior tibial distal: PSV: 64 cm/s. EDV: 0 cm/s. Peroneal proximal: PSV: 28 cm/s. EDV: 0 cm/s. Peroneal mid: PSV: 32 cm/s. EDV: 0 cm/s. Peroneal distal: PSV: 36 cm/s. EDV: 0 cm/s. Anterior tibial proximal: PSV: 46 cm/s. EDV: 0 cm/s. Anterior tibial mid: PSV: 48 cm/s. EDV: 3 cm/s. Anterior tibial distal: PSV: 35 cm/s. EDV: 0 cm/s. VESSEL/GRAFT Superficial femoral artery proximal: PSV: 149 cm/s. EDV: 0 cm/s. Superficial femoral artery tray's canal: PSV: 151 cm/s. EDV: 0 cm/s. Anterior tibial artery origin: PSV: 59 cm/s. EDV: 4 cm/s. Posterior tibial artery origin: PSV: 42 cm/s. EDV: 0 cm/s. Peroneal artery origin: PSV: 71 cm/s. EDV: 0 cm/s. ? IMPRESSION RIGHT SIDE ? Right ankle brachial index: 0.88 Right toe brachial index: 0.69 External iliac artery distal: 50-99% stenosis . Common femoral artery : 50-99% stenosis . Profunda femoral artery origin: 50-99% stenosis . Superficial femoral artery origin: 50-99% stenosis . LEFT SIDE ? Left ankle brachial index: 0.95 Left toe brachial index: 0.62 Popliteal artery origin: 50-99% stenosis . ? Technologist: Amy Loza T Ordering physician: YINKA RUIZ (PA) ? Interpreting physician: YOMI Teague MD ? : ASHD, unstable angina hypertension--at goal PAD with claudication ch renal failure, CKD IV major depression--stable PTSD--stable Plan: healthy diet and activity as able keep appt with Dr Sanford as appointed same medications discuss with Dr Sanford possibility of increasing diltiazem 180 mg daily for palpitations; advisability of referral to Dr James Moreira for evaluation of peripheral artery disease. JENNY Pitts MD, III MD September 18, 2017 3:13 PM Ramo Moreira III MD 09/18/2017 3:35 PM Signed Plan: healthy diet and activity as able keep appt with Dr Sanford as appointed same medications discuss with Dr Sanford possibility of increasing diltiazem 180 mg daily for palpitations; advisability of referral to Dr James Moreira for evaluation of peripheral artery disease. Ramo Moreira III MD Referring Provider: SELF [[id number]] Allergies As of Date: 09/18/2017 Noted Allergy Reaction COVERA-HS (VERAPAMIL HCL) 01/27/2005 5 - Intolerance Comments: passed out LISINOPRIL 03/11/2006 3 - Cough NIASPAN (NIACIN) 04/28/2009 2 - Rash Date Reviewed: 09/18/2017 Reviewed by: Roseanne ([facility]) HANNAH Sarabia - Fully Assessed Reason for Visit: [facility] follow up [Other] Primary Visit Diagnosis:Hospital discharge follow-up [Z09] Other Visit Diagnoses:Essential hypertension, benign [I10] Chronic depression [F32.9] ASHD (arteriosclerotic heart disease) [I25.10] Hyperlipidemia LDL goal <100 [E78.5] 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] Type 2 diabetes mellitus with stage 4 chronic kidney disease, without long-term current use of insulin (HCC) [E11.22, N18.4] Atherosclerosis of [place] coronary artery of [place] heart with angina pectoris (HCC) [I25.119] Prescriptions as of 09/18/2017 Sig: PANTOPRAZOLE 40 MG TABLET,DEL* Take 40 mg by mouth once tyshawn* ALPRAZOLAM 0.5 MG TABLET Take 0.5 mg by mouth twice da* CARVEDILOL 25 MG TABLET Take 25 mg by mouth twice gaudencio* HYDRALAZINE 50 MG TABLET Take 50 mg by mouth twice gaudencio* POTASSIUM CHLORIDE. once daily. ISOSORBIDE MONONITRATE ER 60 * Take 60 mg by mouth once tyshawn* ALLOPURINOL 100 MG TABLET Take 1 tablet by mouth once d* VENLAFAXINE 75 MG TABLET Take 2 tablets by mouth once * INSULIN GLARGINE (U-100) 100 * Inject 14 Units subcutaneousl* DOXAZOSIN 4 MG TABLET Take 1 tablet by mouth once d* CLOTRIMAZOLE-BETAMETHASONE 1 * Apply 1 application to affect* PEN NEEDLE, DIABETIC 29 GAUGE* Use one needle per dose. one* ASPIRIN 81 MG TABLET,DELAYED * Take 1 tablet by mouth once d* CLOPIDOGREL 75 MG TABLET Take 1 tablet by mouth once d* MIRTAZAPINE 15 MG TABLET Take 1 tablet by mouth daily * AMLODIPINE 5 MG TABLET Take 1 tablet by mouth once d* Patient not taking: Reported on 09/18/2017 METOPROLOL TARTRATE 50 MG TAB* Take 1 tablet by mouth twice * Patient not taking: Reported on 09/18/2017 PRAVASTATIN 20 MG TABLET Take 20 mg by mouth once tyshawn* OMEPRAZOLE 20 MG CAPSULE,PERLA* Take 1 capsule by mouth once * Problem List As Of Date 09/18/2017 Noted Resolved BENIGN HYPERTENSION [I10] Gouty arthropathy [274.0] INVALID FOR*04/22/2010 UNEQUAL LEG LENGTH [M21.70] INVALID FOR* Hyposmolality and/or hyponatremia [E87.1] INVALID FOR*07/09/2014 Anemia, unspecified [D64.9] INVALID FOR*07/09/2014 Coronary atherosclerosis [I25.10] INVALID FOR* Contact dermatitis and other eczema, due to uns*INVALID FOR*07/09/2014 Embolism and thrombosis of unspecified site (HC*INVALID FOR*07/09/2014 PULM EMBOLISM/INFARCT IATROGENIC [T81.718A, I26* 07/09/2014 DVT-ARM [I82.629] 07/09/2014 Abscess of intestine [K63.0] INVALID FOR*07/09/2014 Gout [M10.9] INVALID FOR* Biceps tendon rupture [S46.219A] INVALID FOR*07/09/2014 Benign prostatic hyperplasia with urinary obstr*INVALID FOR* Chronic depression [F32.9] INVALID FOR* Hyperkalemia [E87.5] INVALID FOR*05/25/2017 Atherosclerosis of [place] coronary artery of na*INVALID FOR* Hyperlipidemia LDL goal <100 [E78.5] INVALID FOR* 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] INVALID FOR* Encounter for screening for malignant neoplasm *INVALID FOR*01/22/2015 Type 2 diabetes mellitus with stage 4 chronic k*INVALID FOR* Acute kidney failure, unspecified (HCC) [N17.9] INVALID FOR*09/18/2017 Exposure to Agent [place] [Z77.098] INVALID FOR* History of colostomy [TBO5414] INVALID FOR* History of gout [Z87.39] INVALID FOR* History of hypertension [Z86.79] INVALID FOR* History of pulmonary embolism [Z86.711] INVALID FOR* Peripheral vascular disease, unspecified (HCC) *INVALID FOR* Other instructions from your clinician: Plan: healthy diet and activity as able keep appt with Dr Sanford as appointed same medications discuss with Dr Sanford possibility of increasing diltiazem 180 mg daily for palpitations; advisability of referral to Dr James Moreira for evaluation of peripheral artery disease. Ramo Moreira III MD Encounter Status:Closed by RAMO MOREIRA III, MD on 09/18/17 RENAL PROFILE Collected: 09/14/2017 Status: F Source: [place] 11:30 AM [facility] REPOSITORY TYPE CODE TESTS RESULT OUT OF RANGE REFERENCE UNITS LAB L501.0100 74-106 mg/dL High GLU 214 Result Comment: Glucose result greater than or equal to 200 mg/dL suggests DIABETES MELLITUS per A.D.A. criteria. Please note revised GLUCOSE reference range effective 2017. LAB L501.1000 7-18 mg/dL High BUN 39 LAB L501.1100 0.70-1.30 mg/dL High CREAT,SERUM 2.87 Result Comment: The validity of the calculated GFR AND GFRAA in patients over 70 years has not been determined. Clinical correlation is essential. LAB L501.1110 >60 mL/min Low EST GFR 23 Result Comment: Non- GFR Calc LAB L501.1115 >60 mL/min Low EST GFR - AA 28 Result Comment: GFR Calc LAB L501.1300 10-20 RATIO Normal BUN/CRE 13.6 LAB L501.1800 3.2-5.0 g/dL Low ALB 3.0 LAB L501.2200 8.5-10.1 mg/dL CA Normal 8.5 LAB L501.2300 2.5-4.9 mg/dL Normal PHOS 2.7 LAB L501.5300 136-145 mmol/L NA Normal 138 LAB L501.5600 3.5-5.1 mmol/L K Normal 4.4 LAB L501.5900 98-107 mmol/L CL Normal 107 LAB L501.6100 21.0-32.0 mmol/L Normal CO2 23.0 Performed By: #### L500.3600 #### [facility] [place], [address] PROGRESS Observed: 09/12/2017 Status: COMPLETED Source: [place] 11:30 AM [facility] REPOSITORY HNO ID: [id number] Author: Roseanne Sarabia MA Service: (none) Author Type: Trade Manager Type: Progress Notes Filed: 09/12/2017 11:32 AM Note Text: TRANSITION CARE MANAGEMENT (TCM) INITIAL CONTACT Trade Manager Outreach Provider Action/FYI: [facility]-admitted (2nd time) on 09/05, discharged on 09/08 Initial contact with patient post discharge, spoke to patient. Patient identified by name and . SUMMARY: -Pt discharged from [facility] on 09/08/2017. -Admitted for: atypical chest pain, hypertensive crisis Do you have a hospital follow up appointment with your PCP? Appointment on 09/18/2017 with PCP. Yes MEDICATIONS: Many patients have questions or concerns about their medications once they are home. Were you prescribed any new medications? No Were you told to hold any medications? No Were any of your medications discontinued? No Do you have any questions about getting or taking your medications? No Your discharge instructions/After visit Summary (AVS) are important in guiding you through the recovery process. Is there anything I might help you understand? No Do you have all the necessary equipment and supplies at home? Yes Medical records from recent hospitalization: Placed for provider to review Roseanne Sarabia CMA CNPTOUTREACH Observed: 09/12/2017 Status: COMPLETED Source: [place] 12:00 AM [facility] REPOSITORY Patient Outreach (FAMPWS) MARIAMANGIE Clarisse ([id number]) 1945 M Date Time Provider Department 09/12/17 ROSEANNE SARABIA) TRISHA During your visit today, we recorded the following information about you: Roseanne Sarabia CMA, MA 09/12/2017 11:32 AM Signed TRANSITION CARE MANAGEMENT (TCM) INITIAL CONTACT Trade Manager Outreach Provider Action/FYI: [facility]-admitted (2nd time) on 09/05, discharged on 09/08 Initial contact with patient post discharge, spoke to patient. Patient identified by name and . SUMMARY: -Pt discharged from [facility] on 09/08/2017. -Admitted for: atypical chest pain, hypertensive crisis Do you have a hospital follow up appointment with your PCP? Appointment on 09/18/2017 with PCP. Yes MEDICATIONS: Many patients have questions or concerns about their medications once they are home. Were you prescribed any new medications? No Were you told to hold any medications? No Were any of your medications discontinued? No Do you have any questions about getting or taking your medications? No Your discharge instructions/After visit Summary (AVS) are important in guiding you through the recovery process. Is there anything I might help you understand? No Do you have all the necessary equipment and supplies at home? Yes Medical records from recent hospitalization: Placed for provider to review Roseanne Sarabia CMA Allergies As of Date: 09/12/2017 Noted Allergy Reaction COVERA-HS (VERAPAMIL HCL) 01/27/2005 5 - Intolerance Comments: passed out LISINOPRIL 03/11/2006 3 - Cough NIASPAN (NIACIN) 04/28/2009 2 - Rash Date Reviewed: 05/25/2017 Reviewed by: Roseanne Sarabia MA - Fully Assessed Reason for Visit: Transition Of Care [4074] Prescriptions as of 09/12/2017 Sig: ALLOPURINOL 100 MG TABLET Take 1 tablet by mouth once d* VENLAFAXINE 75 MG TABLET Take 2 tablets by mouth once * INSULIN GLARGINE (U-100) 100 * Inject 14 Units subcutaneousl* DOXAZOSIN 4 MG TABLET Take 1 tablet by mouth once d* AMLODIPINE 5 MG TABLET Take 1 tablet by mouth once d* CLOTRIMAZOLE-BETAMETHASONE 1 * Apply 1 application to affect* METOPROLOL TARTRATE 50 MG TAB* Take 1 tablet by mouth twice * PEN NEEDLE, DIABETIC 29 GAUGE* Use one needle per dose. 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] INVALID FOR*04/22/2010 UNEQUAL LEG LENGTH [M21.70] INVALID FOR* Hyposmolality and/or hyponatremia [E87.1] INVALID FOR*07/09/2014 Anemia, unspecified [D64.9] INVALID FOR*07/09/2014 Coronary atherosclerosis [I25.10] INVALID FOR* Contact dermatitis and other eczema, due to uns*INVALID FOR*07/09/2014 Embolism and thrombosis of unspecified site (HC*INVALID FOR*07/09/2014 PULM EMBOLISM/INFARCT IATROGENIC [T81.718A, I26* 07/09/2014 DVT-ARM [I82.629] 07/09/2014 Abscess of intestine [K63.0] INVALID FOR*07/09/2014 Gout [M10.9] INVALID FOR* Biceps tendon rupture [S46.219A] INVALID FOR*07/09/2014 Benign prostatic hyperplasia with urinary obstr*INVALID FOR* Chronic depression [F32.9] INVALID FOR* Hyperkalemia [E87.5] INVALID FOR*05/25/2017 ASHD (arteriosclerotic heart disease) [I25.10] INVALID FOR* Hyperlipidemia LDL goal <100 [E78.5] INVALID FOR* 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] INVALID FOR* Encounter for screening for malignant neoplasm *INVALID FOR*01/22/2015 Type 2 diabetes mellitus with stage 4 chronic k*INVALID FOR* Encounter Status:Closed by ROSEANNE SARABIA CMA on 09/12/17 DISCHARGE SUMMARY Observed: 09/08/2017 Status: F Source: [place] 3:33 [facility] REPOSITORY [facility] Medical Records Department [address] [place] [address] Discharge Summary 09/08/17 1523 MR#: [id number] Acct: [id number] Name: ANGIE DIXON Rep #: [id number] : 1945 72 From: Marguerite Chaves MD PCP: Lillie ALVARADO MD,Ramo Status: ADM IN Location: [place] [address] Discharge Date and Diagnosis Date of Admission: 09/05/17 Date of Discharge: 09/08/17 - Primary Discharge Diagnosis #1 atypical chest pain/probable unstable angina/CAD. #2 hypertensive crisis. #3 stage IV chronic kidney disease. #4 anxiety. 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 Electronically Signed: Karson Stephens MD at 23:29 EDT , Service support , Chest CT 09/05/17 09:01 IMPRESSION: 1. Lungs are adequately inflated and clear. 2. No evidence of thoracic aortic aneurysm 3. Dextroscoliosis of the thoracic spine Electronically Signed: Saud Juarez DO at 10:57 EDT Tel , Service support , Thoracic Spine CT 09/05/17 09:01 IMPRESSION: Degenerative changes of the thoracic spine with dextroscoliosis curvature. No acute findings Electronically Signed: Saud Juarez DO at 10:58 EDT Tel , Service support , Gallbladder Ultrasound 09/07/17 09:28 IMPRESSION: Normal right upper quadrant ultrasound examination. Electronically Signed: Adrien Jacobs MD at 16:46 EDT , Service support , Dr. Sanford, cardiology. Dr. Royal, nephrology. Operations: None Procedures: Cardiac catheterization, EKG Summary of Care Provided: The patient is a 72 year old M admitted because of atypical chest pain, found to have probable unstable angina. His main complaint was anterior chest pain as well as upper back pain. His EKG revealed no evidence of acute ischemic changes. His troponin was minimally elevated and maximum was 0.069. Because of his atypical presentation of the chest pain, CT scan chest without contrast as well as thoracic spine CT scan performed and were negative for thoracic aortic aneurysm, negative for acute findings that might explain his anterior chest as well as upper back pain. Cardiology consulted and patient underwent cardiac catheterization that revealed occluded SVG graft to OM, patent SVG graft to RCA, patent CHARLES to LAD, patent LCx stents and possibly significant proximal LAD disease, no interventions performed. His blood pressure was elevated consistent with hypertensive crisis. He was treated with IV Cardizem drip as well as IV nitroglycerin drip. His medication adjusted to control his blood pressure. He was treated with IV fluids before and after the cardiac catheterization because of stage IV chronic kidney disease. After the cardiac catheterization, his kidney function was monitored and his serum creatinine remained stable at his baseline. Nephrology consulted and discussed with the patient the possibility of need of hemodialysis but patient refused to have AV fistula placed and apparently, Dr. Royal has been trying to convince the patient to have AV fistula placed for probable dialysis but patient refused in the past. At this time, patient stated he would reconsider this option. Dr. Royal recommended to stop Lasix and after discussion with Dr. Sanford, we decided to keep patient on small dose of Lasix. During this hospital stay, patient has been anxious and restless which is likely contributing to his blood pressure elevations. I started him on Ativan and upon discharge, he was started on Xanax as needed small dose. Today, patient was given 1 dose of Cardizem and his heart rate came down as well as his blood pressure. His antihypertensive medication adjusted, started newly on hydralazine and Cardizem CD. Patient discharged home in a stable medical condition, discharged on increased dose of Coreg 25 mg p.o. twice daily, started on hydralazine 50 mg p.o. twice daily, continued on isosorbide mononitrate 60 mg p.o. daily, started on Cardizem CD 120 mg p.o. daily, continued on Lasix 40 mg p.o. daily, started on Xanax 0.5 mg p.o. twice daily as needed, continued his other home medications without any changes, recommended follow-up with PCP in 1 week, follow-up with nephrology in 2 weeks and follow-up with cardiology according to Dr. Sanford recommendation. Discharge Activity: Return to Normal Activity Weight Bearing Status: Weight bearing as tolerated Call your doctor if you observe: Fever of 101 or Higher, Shortness of breath, Dizziness, Fainting spells, Swelling in the ankles, Chest pain, Increased palpitations (irregular heartbeat), Uncontrolled pain Home Medications: Medications to take at Discharge Allopurinol [Zyloprim] 300 mg PO DAILY 12/02/13 Mirtazapine [Remeron] 15 mg PO QHS 12/02/13 Doxazosin Mesylate [Cardura] 2 mg PO QHS 01/30/15 Insulin Glargine,Hum.rec.anlog [Lantus] 14 unit SQ BREAKFAST 08/20/15 Venlafaxine XR [Effexor Xr] 150 mg PO DAILY 10/06/15 Clopidogrel Bisulfate [Plavix] 75 mg PO DAILY #0 12/04/15 Potassium Chloride 1 tab PO DAILY 08/31/17 Aspirin [Aspirin, Baby] 81 mg PO DAILY@0800 #30 tab.chew 09/01/17 Isosorbide Mononitrate [Imdur] 60 mg PO DAILY #30 tab 09/01/17 Pantoprazole Sodium [Protonix] 40 mg PO BID #60 tab 09/01/17 Pravastatin [Pravachol] 40 mg PO QHS #30 tab 09/01/17 ALPRAZolam [Xanax] 0.5 mg PO BID PRN PRN #30 tab 09/08/17 Carvedilol [Coreg (Beta Pedro)] 25 mg PO BID #90 tab 09/08/17 Diltiazem CD [Cardizem CD] 120 mg PO DAILY #30 cap 09/08/17 Furosemide [Lasix] 40 mg PO DAILY #30 tab 09/08/17 hydrALAZINE [Apresoline] 50 mg PO BID #90 tab 09/08/17 Following Prescrptions Were Given to Patient: ALPRAZolam [Xanax] 0.5 mg PO BID PRN PRN #30 tab PRN Reason: Anxiety/Insomnia Diltiazem CD [Cardizem CD] 120 mg PO DAILY #30 cap Furosemide [Lasix] 40 mg PO DAILY #30 tab Carvedilol [Coreg (Beta Pedro)] 25 mg PO BID #90 tab hydrALAZINE [Apresoline] 50 mg PO BID #90 tab Primary Care Physician: Ramo Moreira III, MD [Primary Care Provider] - Please follow up with your Primary Care Physician in: 1 week. Please Follow Up With: Tracey Royal DO When: 2 weeks. Please Follow Up With: Jayy Sanford MD When: Please call his office. Patient Instructions: Controlling High Blood Pressure, Taking Your Blood Pressure, Understanding Anxiety Disorders, Discharge Instructions: Taking Your Blood Pressure Disposition: Home Minutes spent on discharge:: 35 Patient Condition:: Stable Medical Necessity - Tobacco Use Smoking Status: Former smoker Tobacco Use: Cigarettes Meaningful Use Info Meaningful Use Diagnoses (Choose all that apply): None applicable Code Visit Inpatient E AND M: 11660 Disch Hosp 09/08/17 1533 <Electronically signed by Marguerite Chaves MD> Date Marguerite Chaves MD Cosigner Signature (if applicable): Date CC: Tracey Royal DO; Jayy Sanford MD; Ramo Moreira III, MD; Marguerite Chaves Signed DISCHARGE INSTRUCTION Observed: 09/08/2017 Status: F Source: [place] 3:23 PM [facility] REPOSITORY [facility] Medical Records Department [address] [place] [id number] Instructions for Home/Discharge Instructions 09/08/17 1522 MR#: [id number] Acct: [id number] Name: ANGIE DIXON Rep #: [id number] : 1945 72 From: Marguerite Chaves MD PCP: Ramo Moreira III, MD Status: ADM IN You will use the following diet at home:: Calorie/Carbohydrate Controlled (specify 1200, 1400, etc) - 1800 susan, Cardiac, Renal (restricted protein/sodium) Your food should be the consistency of: Regular Discharge Activity: Return to Normal Activity Weight Bearing Status: Weight bearing as tolerated Call your doctor if you observe: Fever of 101 or Higher, Shortness of breath, Dizziness, Fainting spells, Swelling in the ankles, Chest pain, Increased palpitations (irregular heartbeat), Uncontrolled pain Instructions: Controlling High Blood Pressure, Taking Your Blood Pressure, Understanding Anxiety Disorders, Discharge Instructions: Taking Your Blood Pressure Allergies/Adverse Reactions: Allergies atorvastatin calcium [From Lipitor] Allergy (Verified 09/04/17 22:47) Pain in joints verapamil [From Covera-HS] Allergy (Verified 09/04/17 22:47) passes out lisinopril Adverse Reaction (Verified 09/04/17 22:47) Other muscle pain Niacin Preparations Adverse Reaction (Verified 09/04/17 22:47) Pain in joints Cholesterol Meds Adverse Reaction (Uncoded 09/05/17 01:41) Other Medications to take at Discharge Allopurinol [Zyloprim] 300 mg PO DAILY 12/02/13 Mirtazapine [Remeron] 15 mg PO QHS 12/02/13 Doxazosin Mesylate [Cardura] 2 mg PO QHS 01/30/15 Insulin Glargine,Hum.rec.anlog [Lantus] 14 unit SQ BREAKFAST 08/20/15 Venlafaxine XR [Effexor Xr] 150 mg PO DAILY 10/06/15 Clopidogrel Bisulfate [Plavix] 75 mg PO DAILY #0 12/04/15 Potassium Chloride 1 tab PO DAILY 08/31/17 Aspirin [Aspirin, Baby] 81 mg PO DAILY@0800 #30 tab.chew 09/01/17 Isosorbide Mononitrate [Imdur] 60 mg PO DAILY #30 tab 09/01/17 Pantoprazole Sodium [Protonix] 40 mg PO BID #60 tab 09/01/17 Pravastatin [Pravachol] 40 mg PO QHS #30 tab 09/01/17 ALPRAZolam [Xanax] 0.5 mg PO BID PRN PRN #30 tab 09/08/17 Carvedilol [Coreg (Beta Pedro)] 25 mg PO BID #90 tab 09/08/17 Diltiazem CD [Cardizem CD] 120 mg PO DAILY #30 cap 09/08/17 Furosemide [Lasix] 40 mg PO DAILY #30 tab 09/08/17 hydrALAZINE [Apresoline] 50 mg PO BID #90 tab 09/08/17 The following prescriptions were given: ALPRAZolam [Xanax] 0.5 mg PO BID PRN PRN #30 tab PRN Reason: Anxiety/Insomnia Diltiazem CD [Cardizem CD] 120 mg PO DAILY #30 cap Furosemide [Lasix] 40 mg PO DAILY #30 tab Carvedilol [Coreg (Beta Pedro)] 25 mg PO BID #90 tab hydrALAZINE [Apresoline] 50 mg PO BID #90 tab Primary Care Physician: Ramo Moreira III, MD [Primary Care Provider] - Please follow up with your Primary Care Physician in: 1 week. Test Results: Test results from this visit will be discussed in further detail at your follow-up appointment, if applicable. Please Follow Up With: Tracey Royal DO When: 2 weeks. Please Follow Up With: Jayy Sanford MD When: Please call his office. 09/08/17 1523 <Electronically signed by Marguerite Chaves MD> Date Marguerite Chaves MD CC: Tracey Royal DO; Jayy Sanford MD; Ramo Moreira III, MD 12 LEAD ELECTROCARDIOGRAM Observed: 09/08/2017 Status: F Source: [place] 1:52 PM [facility] REPOSITORY [facility] Cardiovascular Services [address] [place] [address] 12 Lead EKG 09/05/17 7306 MR#: [id number] Acct: [id number] Name: ANGIE DIXON Clarisse Rep #: [id number] : 1945 72 From: Pablo Khan MD Attending Dr: Marguerite Chaves Status: ADM IN Ordering Dr: Marguerite Chaves MD Date: 09/05/17 Location: [facility] Sex: M C Admitted: 09/05/17 Test Reason : CP Blood Pressure : / mmHG Vent. Rate : 114 BPM Atrial Rate : 114 BPM P-R Int : 168 ms QRS Dur : 142 ms QT Int : 388 ms P-R-T Axes : 036 010 147 degrees QTc Int : 534 ms Sinus tachycardia with frequent Premature ventricular complexes Left bundle branch block Abnormal ECG Confirmed by ERIN CABRERA, PABLO ([id number]), editorial intern TE[employer]IST[employer] ([id number]) on 09/08/2017 1:51:30 PM Referred By: Kavita Hinojosa Confirmed By:PABLO KHAN MD 09/08/17 1351 Date Pablo Khan MD CC: Ramo Moreira III, MD; Marguerite Chaves Signed 12 LEAD ELECTROCARDIOGRAM Observed: 09/08/2017 Status: F Source: [place] 1:52 PM [facility] REPOSITORY [facility] Cardiovascular Services [address] [place] [address] 1945[address] 12 Lead EKG 09/07/17 0502 MR#: [id number] Acct: [id number] Name: ANGIE DIXON Rep #: [id number] : 1945 72 From: Pablo Khan MD Attending Dr: Marguerite Chaves Status: ADM IN Ordering Dr: Jayy Sanford MD Date: 09/07/17 Location: [facility] Sex: M C Admitted: 09/05/17 Test Reason : AM EKG Blood Pressure : / mmHG Vent. Rate : 112 BPM Atrial Rate : 112 BPM P-R Int : 144 ms QRS Dur : 144 ms QT Int : 394 ms P-R-T Axes : 062 020 118 degrees QTc Int : 537 ms Sinus tachycardia Left bundle branch block Abnormal ECG Confirmed by PABLO KHAN MD ([id number]), editorial intern TEA BATISTA ([id number]) on 09/08/2017 1:52:29 PM Referred By: Kavita Hinojosa Confirmed By:PABLO KHAN MD 09/08/17 4860 Date Pablo Khan MD CC: Jayy Sanford MD; Ramo Moreira III, MD; Marguerite Chaves Signed 12 LEAD ELECTROCARDIOGRAM Observed: 09/08/2017 Status: F Source: [place] 1:51 PM [facility] REPOSITORY [facility] Cardiovascular Services [address] [place] [address] 12 Lead EKG 09/06/17 0512 MR#: [id number] Acct: [id number] Name: MARIAMANGIE D Rep #: [id number] : 1945 72 From: Pablo Khan MD Attending Dr: Marguerite Chaves Status: ADM IN Ordering Dr: Jayy Sanford MD Date: 09/06/17 Location: [facility] Sex: M C Admitted: 09/05/17 Test Reason : CP Blood Pressure : / mmHG Vent. Rate : 100 BPM Atrial Rate : 100 BPM P-R Int : 182 ms QRS Dur : 146 ms QT Int : 406 ms P-R-T Axes : 060 -17 141 degrees QTc Int : 523 ms Sinus rhythm with occasional Premature ventricular complexes Left bundle branch block Abnormal ECG Confirmed by PABLO KHAN MD ([id number]), editorial intern TEA BATISTA ([id number]) on 09/08/2017 1:50:37 PM Referred By: Kavita Hinojosa Confirmed By:PABLO KHAN MD 09/08/17 2404 Date Pablo Khan MD CC: Jayy Sanford MD; Ramo Moreira III, MD; Marguerite Chaves Signed 12 LEAD ELECTROCARDIOGRAM Observed: 09/08/2017 Status: F Source: [place] 1:51 PM [facility] REPOSITORY [facility] Cardiovascular Services [address] [place] [address] 12 Lead EKG 09/06/17 0101 MR#: [id number] Acct: [id number] Name: ANGIE DIXON Rep #: [id number] : 1945 72 From: Pablo Khan MD Attending Dr: Marguerite Chaves Status: ADM IN Ordering Dr: Ezra Ramirez MD Date: 09/06/17 Location: [facility] Sex: M C Admitted: 09/05/17 Test Reason : CP Blood Pressure : / mmHG Vent. Rate : 098 BPM Atrial Rate : 098 BPM P-R Int : 176 ms QRS Dur : 148 ms QT Int : 428 ms P-R-T Axes : 024 -28 114 degrees QTc Int : 546 ms Normal sinus rhythm Left bundle branch block Abnormal ECG Confirmed by ERIN CABRERA, PABLO ([id number]), editorial intern TE[employer] BATISTA ([id number]) on 09/08/2017 1:50:58 PM Referred By: Kavita Hinojosa Confirmed By:PABLO KHAN MD 09/08/17 1351 Date Pablo Khan MD CC: Ramo Moreira III, MD; Marguerite Chaves; Ezra Ramirez MD Signed 12 LEAD ELECTROCARDIOGRAM Observed: 09/08/2017 Status: F Source: [place] 1:14 PM [facility] REPOSITORY [facility] Cardiovascular Services [address] [place] [address] 12 Lead EKG 09/04/17 2242 MR#: [id number] Acct: [id number] Name: ANGIE DIXON Rep #: [id number] : 1945 72 From: Pablo Khan MD Attending Dr: Marguerite Chaves Status: ADM IN Ordering Dr: Keo Amato MD Date: 07/23/18 Location: [facility] Sex: M C Admitted: 09/05/17 Test Reason : CP Blood Pressure : / mmHG Vent. Rate : 110 BPM Atrial Rate : 110 BPM P-R Int : 168 ms QRS Dur : 146 ms QT Int : 382 ms P-R-T Axes : 027 -17 116 degrees QTc Int : 516 ms Sinus tachycardia with occasional Premature ventricular complexes Left bundle branch block Abnormal ECG Confirmed by ERIN CABRERA, PABLO ([id number]), editorial intern TEA BATISTA ([id number]) on 09/08/2017 1:13:49 PM Referred By: Kavita Hinojosa Confirmed By:PABLO KHAN MD 09/08/17 1313 Date Pablo Khan MD CC: Ramo Moreira III, MD; Marguerite Chaves; Keo Amato MD Signed DISCHARGE INSTRUCTION Observed: 09/08/2017 Status: F Source: [place] 1:02 PM [facility] REPOSITORY [facility] Medical Records Department [address] [place] [address] Instructions for Home/Discharge Instructions 09/08/17 1259 MR#: [id number] Acct: [id number] Name: ANGIE DIXON Rep #: [id number] : 1945 72 From: Marguerite Chaves MD PCP: Ramo Moreira III, MD Status: ADM IN You will use the following diet at home:: Calorie/Carbohydrate Controlled (specify 1200, 1400, etc) - 1800 susan., Cardiac Your food should be the consistency of: Regular Discharge Activity: Return to Normal Activity Weight Bearing Status: Weight bearing as tolerated Call your doctor if you observe: Fever of 101 or Higher, Shortness of breath, Dizziness, Fainting spells, Swelling in the ankles, Chest pain, Increased palpitations (irregular heartbeat), Uncontrolled pain Instructions: Taking Your Blood Pressure, Controlling High Blood Pressure, Discharge Instructions: Taking Your Blood Pressure, Understanding Anxiety Disorders Allergies/Adverse Reactions: Allergies atorvastatin calcium [From Lipitor] Allergy (Verified 09/04/17 22:47) Pain in joints verapamil [From Covera-HS] Allergy (Verified 09/04/17 22:47) passes out lisinopril Adverse Reaction (Verified 09/04/17 22:47) Other muscle pain Niacin Preparations Adverse Reaction (Verified 09/04/17 22:47) Pain in joints Cholesterol Meds Adverse Reaction (Uncoded 09/05/17 01:41) Other Medications to take at Discharge Allopurinol [Zyloprim] 300 mg PO DAILY 12/02/13 Mirtazapine [Remeron] 15 mg PO QHS 12/02/13 Doxazosin Mesylate [Cardura] 2 mg PO QHS 01/30/15 Insulin Glargine,Hum.rec.anlog [Lantus] 14 unit SQ BREAKFAST 08/20/15 Venlafaxine XR [Effexor Xr] 150 mg PO DAILY 10/06/15 Clopidogrel Bisulfate [Plavix] 75 mg PO DAILY #0 12/04/15 Potassium Chloride 1 tab PO DAILY 08/31/17 Aspirin [Aspirin, Baby] 81 mg PO DAILY@0800 #30 tab.chew 09/01/17 Isosorbide Mononitrate [Imdur] 60 mg PO DAILY #30 tab 09/01/17 Pantoprazole Sodium [Protonix] 40 mg PO BID #60 tab 09/01/17 Pravastatin [Pravachol] 40 mg PO QHS #30 tab 09/01/17 ALPRAZolam [Xanax] 0.5 mg PO BID PRN PRN #30 tab 09/08/17 Carvedilol [Coreg (Beta Pedro)] 25 mg PO BID #90 tab 09/08/17 hydrALAZINE [Apresoline] 50 mg PO BID #90 tab 09/08/17 The following prescriptions were given: ALPRAZolam [Xanax] 0.5 mg PO BID PRN PRN #30 tab PRN Reason: Anxiety/Insomnia Carvedilol [Coreg (Beta Pedro)] 25 mg PO BID #90 tab hydrALAZINE [Apresoline] 50 mg PO BID #90 tab Primary Care Physician: Ramo Moreira III, MD [Primary Care Provider] - Please follow up with your Primary Care Physician in: 1 week. Test Results: Test results from this visit will be discussed in further detail at your follow-up appointment, if applicable. Please Follow Up With: Tracey Royal DO When: 2 weeks. Please Follow Up With: Jayy Sanford MD When: Please call his office. 09/08/17 1302 <Electronically signed by Marguerite Chaves MD> Date Marguerite Chaves MD CC: Tracey Royal DO; Jayy Sanford MD; Ramo Moreira III, MD BEDSIDE GLUCOSE Collected: 09/08/2017 Status: F Source: [place] 11:10 AM [facility] REPOSITORY TYPE CODE TESTS RESULT OUT OF REFERENCE UNITS RANGE LAB L501.080 70-110 mg/dL High BEDSIDE GLU 227 Result Comment: MANAGEMENT OF PATIENT CARE PER NURSING PROTOCOL Performed By: #### L501.080 #### [facility] Point of [place] [address] RENAL PROFILE Collected: 09/08/2017 Status: F Source: [place] 6:10 AM [facility] REPOSITORY TYPE CODE TESTS RESULT OUT OF RANGE REFERENCE UNITS LAB L501.0100 74-106 mg/dL High GLU 112 Result Comment: Fasting Glucose result from 100 to 125 mg/dL suggests IMPAIRED HOMEOSTASIS per A.D.A. criteria. Please note revised GLUCOSE reference range effective 2017. LAB L501.1000 7-18 mg/dL High BUN 46 LAB L501.1100 0.70-1.30 mg/dL High CREAT,SERUM 2.96 Result Comment: The validity of the calculated GFR AND GFRAA in patients over 70 years has not been determined. Clinical correlation is essential. LAB L501.1110 >60 mL/min Low EST GFR 22 Result Comment: Non- GFR Calc LAB L501.1115 >60 mL/min Low EST GFR - AA 27 Result Comment: GFR Calc LAB L501.1255 ml/min Normal Estimated CRCL 20.78 LAB L501.1300 10-20 RATIO Normal BUN/CRE 15.5 LAB L501.1800 3.2-5. g/dL Normal 0 ALB 3.2 LAB L501.2200 8.5-10 mg/dL Normal .1 CA 8.8 LAB L501.2300 2.5-4. mg/dL Normal 9 PHOS 2.8 LAB L501.5300 136-14 mmol/L Normal 5 NA 140 LAB L501.5600 3.5-5. mmol/L Normal 1 K 4.1 LAB L501.5900 98-107 mmol/L High CL 110 LAB L501.6100 21.0-3 mmol/L Normal 2.0 CO2 21.0 Performed By: #### L500.3600, L501.2450 #### [facility] [address] [place], [address] LIPASE Collected: 09/08/2017 Status: F Source: [place] 6:10 AM [facility] REPOSITORY TYPE CODE TESTS RESULT OUT OF REFERENCE UNITS RANGE LAB L501.2450 73-393 U/L Low LIPASE 31 Performed By: #### L500.3600, L501.2450 #### [facility] [address] [place], [address] BEDSIDE GLUCOSE Collected: 09/08/2017 Status: F Source: [place] 5:28 AM [facility] REPOSITORY TYPE CODE TESTS RESULT OUT OF RANGE REFERENCE UNITS LAB L501.080 70-110 mg/dL Normal BEDSIDE GLU 107 Result Comment: MANAGEMENT OF PATIENT CARE PER NURSING PROTOCOL Performed By: #### L501.080 #### [facility] Point of Care [address] [place] [address] BEDSIDE GLUCOSE Collected: 09/08/2017 Status: F Source: [place] 12:11 AM [facility] REPOSITORY TYPE CODE TESTS RESULT OUT OF REFERENCE UNITS RANGE LAB L501.080 70-110 mg/dL High BEDSIDE GLU 132 Result Comment: MANAGEMENT OF PATIENT CARE PER NURSING PROTOCOL Performed By: #### L501.080 #### [facility] [address] [facility] [place] [address] CONSULTATION Observed: 09/07/2017 Status: F Source: [place] 8:05 PM [facility] REPOSITORY [facility] Medical Records Department [address] [place] [address] Consultation 09/07/17 1324 MR#: [id number] Acct: [id number] Name: ANGIE DIXON Rep #: [id number] : 1945 72 From: Tracey Royal DO PCP: Ramo Moreira III, MD Status: ADM IN Y Location: [place] [id number] Consultation - Renal 09/07/17 PCP/ Referring MD: Requesting physician: Mendez Sanford Primary care physician: Ramo Moreira Reason for Consultation:: CKD stage 4 - History of Present Illness History of Present Illness: The patient is a 72 year old M well known to me with CKD stage 4 due to hypertension, diabetes admitted for chest pain, subscapular pain. He underwent heart cath on 09/06 and is scheduled for abdominal US to evaluate for gallstones. He had severe sharp pain at night lying in bed. Pain seems to come on after meals. BP was elevated in the ER in the 200s with pain syndrome. His BP medications were changed. He denies pain now and BP under good control. Creatinine was 3.9 on admit improved to 2.7 today with iv hydration. He has an ostomy with liquid output. He has a prerenal component. We had many discussions in the office about dialysis access placement and he refused in the past and now. He states he may not want to proceed with dialysis in the future. He has a sister with CKD stage 5 who recently had her AVF placed after multiple discussions. He may reconsider but for now refuses access. He would like to know why he is having the chest pain first. He has a history of hyperkalemia and intolerant to Diovan in the past precluding him from ACEI/ARB therapy for diabetic proteinuria. PMH for hypertension, diabetes, hypercholesterolemia, coronary artery disease status post three-vessel bypass surgery at [facility] in 2006 followed by angioplasty and stenting in 2012 and 2013 of unknown vessels. In addition the patient is a history of diverticulitis status post colectomy and colostomy bag in 2006 at the time of his bypass surgery. Echo from 08/31/17 showed an EF of 40-45%, and an RVSP of around 25 mmHg. - Allergies Allergies: Allergies atorvastatin calcium [From Lipitor] Allergy (Verified 09/04/17 22:47) Pain in joints verapamil [From Covera-HS] Allergy (Verified 09/04/17 22:47) passes out lisinopril Adverse Reaction (Verified 09/04/17 22:47) Other muscle pain Niacin Preparations Adverse Reaction (Verified 09/04/17 22:47) Pain in joints Cholesterol Meds Adverse Reaction (Uncoded 09/05/17 01:41) Other - Current Medications Current Medications: Current Medications Aspirin (Aspirin, Baby) 81 mg PO DAILY@0800 [facility] Last Admin: 09/07/17 08:39 Dose: 81 mg Carvedilol (Coreg) 25 mg PO BID [facility] Last Admin: 09/07/17 09:38 Dose: 25 mg Clopidogrel Bisulfate (Plavix) 75 mg PO DAILY [facility] Last Admin: 09/07/17 09:38 Dose: 75 mg Dextrose (D50w Syringe) 0 gm IV X1 PRN; Protocol PRN Reason: Hypoglycemia Furosemide (Lasix) 40 mg PO DAILY [facility] Last Admin: 09/07/17 09:38 Dose: 40 mg Glucagon () 1 mg IM .X1 PRN PRN Reason: Hypoglycemia Heparin Sodium (Beef Lung) (Heparin 500 Unit/5 Ml (100/Ml)) 500 unit IV UD PRN PRN Reason: HEPARIN FLUSH Hydralazine HCl (Apresoline Iv) 20 mg IV Q6H PRN PRN PRN Reason: Hypertensive Emergency Hydralazine HCl (Apresoline) 50 mg PO BID [facility] Last Admin: 09/07/17 08:39 Dose: 50 mg Nitroglycerin/Dextrose 25 mg/ (N/A) 250 mls @ 3 mls/hr IV .[id number] MICHAEL; 5 MCG/MIN PRN Reason: Protocol Last Admin: 09/06/17 19:35 Dose: 3 mls/hr Insulin Glargine (Lantus (Bkc)) 7 units SC BREAKFAST [facility] Last Admin: 09/07/17 08:39 Dose: 7 units Insulin Human Lispro (Humalog Kwikpen (Bkc)) 0 unit SQ Q6 [facility] PRN Reason: Protocol Last Admin: 09/07/17 11:48 Dose: Not Given Isosorbide Mononitrate (Imdur) 60 mg PO DAILY [facility] Last Admin: 09/07/17 08:39 Dose: 60 mg Labetalol HCl (Trandate) 10 mg IV Q6H PRN PRN PRN Reason: BLOOD PRESSURE ELEVATION Last Admin: 09/06/17 13:30 Dose: 10 mg Labetalol HCl (Trandate) 5 mg IV X1 PRN PRN Reason: SBP > 160 prior to sheath pull Lorazepam (Ativan) 1 mg IV Q4H PRN PRN PRN Reason: ANXIETY Last Admin: 09/06/17 23:29 Dose: 1 mg Magnesium Hydroxide (Milk Of Magnesia) 30 ml PO DAILY PRN PRN Reason: Constipation Metoprolol Tartrate (Lopressor (Beta Pedro)) 5 mg IV Q4H PRN PRN PRN Reason: BLOOD PRESSURE ELEVATION Morphine Sulfate () 1 mg IV Q2H PRN PRN PRN Reason: SEVERE PAIN (6-10/10) Last Admin: 09/07/17 06:15 Dose: 1 mg Nitroglycerin (Nitrostat) 0.4 mg SUBLINGUAL Q5M PRN PRN Reason: CHEST PAIN Last Admin: 09/05/17 18:20 Dose: 0.4 mg Ondansetron HCl (Zofran) 4 mg IV Q6H PRN PRN PRN Reason: NAUSEA/VOMITING Last Admin: 09/06/17 23:27 Dose: 4 mg Pantoprazole Sodium (Protonix) 40 mg PO BID MICHAEL Sodium Chloride () 5 - 30 ml IV UD PRN PRN Reason: SALINE FLUSH Last Admin: 09/06/17 01:11 Dose: 10 ml - 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 2 coronary artery stents. - Social History Smoking Status: Former smoker - Family History Sibling History Items: Diabetes, Heart Disease Review of Systems Constitutional: Denies: Anorexia, Chills, Fever, Weakness HEENT: Denies: Head Aches Cardiovascular: Reports: Chest Pain - radiating to back between shoulders. Denies: Edema, Syncope Respiratory: Denies: Cough, Shortness of Breath Gastrointestinal: Reports: - - ostomy with loose stools. Denies: Abdominal Pain, Constipation, Nausea, Vomiting Genitourinary: Denies: Dysuria Skin: Denies: Rash Neurological: Denies: Balance problems Hematologic/ Lymphatic: Reports: Anemia - Physical Exam General: Alert, Oriented x3, Cooperative, No apparent distress HEENT: PERRLA, EOMI Neck: Supple Lungs: Clear to auscultation Cardiovascular: Regular rate Abdomen: Bowel Sounds Present, Soft, Non Tender, Non-Distended, - - ostomy LLQ Extremities: No edema Skin: No rashes Musculoskeletal: No Muscle Wasting Neurological: Cranial nerves II-XII grossly intact Psych/Mental Status: Normal Affect, Appropriate, Alert and oriented to time, place, person, mood and affect Vital Signs Temp Pulse Resp BP Pulse Ox 99.2 F H 98 16 140/64 H 95 09/07/17 12:00 09/07/17 12:00 09/07/17 12:00 09/07/17 12:00 09/07/17 12:00 Oxygen Flow Rate (L/min) 2 Oxygen Delivery Method Room Air Weight: 75.2 kg Body Mass Index (BMI) 26.1 Intake and Output for Last 24 Hours Laboratory Tests Past 24 Hrs WBC 11.3 H POC Glucose POC Glucose 154 H 173 H 190 H POC Glucose 123 H Clinical Impression(s) from Imaging Studies Chest X-Ray 09/04/17 23:11 IMPRESSION: No evidence for acute chest disease. Electronically Signed: Karson Stephens MD at 23:29 EDT , Service support , Chest CT 09/05/17 09:01 IMPRESSION: 1. Lungs are adequately inflated and clear. 2. No evidence of thoracic aortic aneurysm 3. Dextroscoliosis of the thoracic spine Electronically Signed: Saud Juarez DO at 10:57 EDT Tel , Service support , Thoracic Spine CT 09/05/17 09:01 IMPRESSION: Degenerative changes of the thoracic spine with dextroscoliosis curvature. No acute findings Electronically Signed: Saud Juarez DO at 10:58 EDT Tel , Service support , Assessment/Plan All Active Problems Chest pain (Acute) 1. Acute on CKD stage 4. Baseline creatinine 2.8 increased to 3.9 on admit improved to 2.7. Likely hemodynamic changes from liquid stools. Recent heart cath on 09/06 with stable renal fxn. No sign of contrast nephropathy. Pt declined on dialysis access in the past during our discussions in the office and refuses now. He will reconsider later but wants to have his chest pain addressed. 2. Uncontrolled HTN bp stable on current regimen 3. Chest pain with radiation to shoulder. Abd US today 4. DM2 with diabetic nephropathy, proteinuria, intolerant to ACEI due to hyperkalemia and ARB causing myalgias 5. s/p Colostomy. Continue encouraging hydration. Concerned may get dehydrated with lasix. 09/07/172004 <Electronically signed by Tracey Royal DO> Date Tracey Royal DO Cosigner Signature (if applicable): Date CC: Tracey Royal DO; Jayy Sanford MD; Ramo Moreira III, MD Signed BEDSIDE GLUCOSE Collected: 09/07/2017 Status: F Source: [place] 4:47 PM [facility] REPOSITORY TYPE CODE TESTS RESULT OUT OF RANGE REFERENCE UNITS LAB L501.080 70-110 mg/dL Normal BEDSIDE GLU 101 Result Comment: MANAGEMENT OF PATIENT CARE PER NURSING PROTOCOL Performed By: #### L501.080 #### [facility] [address] [address] [place] [address] 12 LEAD ELECTROCARDIOGRAM Observed: 09/07/2017 Status: F Source: [place] 12:37 PM [facility] REPOSITORY [facility] Cardiovascular Services [address] [place] [address] 12 Lead EKG 09/05/17 0146 MR#: [id number] Acct: [id number] Name: ANGIE DIXON Rep #: [id number] : 1945 72 From: Jayy Sanford MD Attending Dr: Marguerite Chaves Status: ADM IN Ordering Dr: Pablo Burrell MD Date: 09/05/17 Location: ICU Sex: M C Admitted: 09/05/17 Test Reason : CP REPEAT Blood Pressure : / mmHG Vent. Rate : 087 BPM Atrial Rate : 087 BPM P-R Int : 190 ms QRS Dur : 150 ms QT Int : 430 ms P-R-T Axes : 065 -04 129 degrees QTc Int : 517 ms Sinus rhythm with occasional Premature ventricular complexes Left bundle branch block Abnormal ECG When compared with ECG of 31-AUG-2017 05:27, Fusion complexes are no longer Present Premature ventricular complexes are now Present Confirmed by JAYY SANFORD ([id number]), editorial intern TEA BATISTA ([id number]) on 09/07/2017 12:36:46 PM Referred By: Kavita Hinojosa Confirmed By:JAYY SANFORD 09/07/17 1236 Date Jayy Sanford MD CC: Ramo Moreira III, MD; Marguerite Chaves; Pablo Burrell MD Signed 12 LEAD ELECTROCARDIOGRAM Observed: 09/07/2017 Status: F Source: [place] 12:37 PM [facility] REPOSITORY [facility] Cardiovascular Services [address] [place] [id number] Lead EKG 09/05/17 0407 MR#: [id number] Acct: [id number] Name: ANGIE DIXON Rep #: [id number] : 1945 72 From: Jayy Sanford MD Attending Dr: Marguerite Chaves Status: ADM IN Ordering Dr: Pablo Burrell MD Date: 09/05/17 Location: ICU Sex: M C Admitted: 09/05/17 Test Reason : CP Blood Pressure : / mmHG Vent. Rate : 089 BPM Atrial Rate : 089 BPM P-R Int : 180 ms QRS Dur : 150 ms QT Int : 434 ms P-R-T Axes : 049 -20 118 degrees QTc Int : 528 ms Sinus rhythm with Premature atrial complexes Left bundle branch block Abnormal ECG When compared with ECG of 05-SEP-2017 01:46, MANUAL COMPARISON REQUIRED, DATA IS UNCONFIRMED Confirmed by JAYY SANFORD ([id number]), editorial intern TE[employer] BATISTA ([id number]) on 09/07/2017 12:37:28 PM Referred By: Kavita Hinojosa Confirmed By:JAYY SANFORD 09/07/17 1237 Date Jayy Sanford MD CC: Ramo Moreira III, MD; Marguerite Chaves; Pablo Burrell MD Signed BEDSIDE GLUCOSE Collected: 09/07/2017 Status: F Source: [place] 11:41 AM [facility] REPOSITORY TYPE CODE TESTS RESULT OUT OF REFERENCE UNITS RANGE LAB L501.080 70-110 mg/dL High BEDSIDE GLU 154 Result Comment: MANAGEMENT OF PATIENT CARE PER NURSING PROTOCOL Performed By: #### L501.080 #### [facility] Laboratory Point of Care [address] [place] [address] GALLBLADDER Observed: 09/07/2017 Status: F Source: [place] 9:28 AM [facility] REPOSITORY [facility] Imaging Services [address] [place] [address] Gallbladder MR#: [id number] Acct: [id number] Name: ANGIE DIXON Rep #: [id number] : 1945 72 From: Husam Jacobs MD PCP: Ramo Moreira III, MD Status: ADM IN Study: Gallbladder Date of Exam: 09/07/17 Exam# [id number] Ordering Dr: Jayy Sanford MD STUDY: ABDOMINAL ULTRASOUND - RIGHT UPPER QUADRANT REASON FOR VISIT: Male, 72 years old. Upper abdominal pain. TECHNIQUE: Ultrasound evaluation of the right upper quadrant was performed with real-time and static moody-scale imaging. TECHNICAL QUALITY: Adequate. COMPARISON: None. FINDINGS: Liver: The liver measures 12.8 cm. There is normal echogenicity of the liver. The bile ducts are within normal limits. There is hepatic color flow. The direction of portal flow is hepatopetal. There is no demonstrated mass lesion. Gallbladder: Normal distended gallbladder. The gallbladder wall measures 2 mm. There is a negative sonographic Bernal's sign. There is no pericholecystic fluid. There are no gallstones. Common Bile Duct (C.B.D.): The common bile duct measures 4 mm. Pancreas: Normal size of the head, body and tail of the pancreas. There is increased echogenicity of the pancreas. There is no demonstrated pancreatic mass or cyst. Right Kidney: Normal size of the right kidney. The right kidney measures 9.7 x 5.5 x 5.1 cm. Normal renal cortex. The right cortex measures 1.4 cm. There is no demonstrated renal mass or cyst. There is no right hydronephrosis. US/Gallbladder IMPRESSION: Normal right upper quadrant ultrasound examination. Electronically Signed: Adrien Jacobs MD at 16:46 EDT , Service support , CC: Jayy Sanford MD; Ramo Moreira III, MD Button Puncher: Signed BEDSIDE GLUCOSE Collected: 09/07/2017 Status: F Source: [place] 6:01 AM [facility] REPOSITORY TYPE CODE TESTS RESULT OUT OF REFERENCE UNITS RANGE LAB L501.080 70-110 mg/dL High BEDSIDE GLU 173 Result Comment: MANAGEMENT OF PATIENT CARE PER NURSING PROTOCOL Performed By: #### L501.080 #### [facility] Laboratory Point of Care [address] [place], [place] [address] CBC W/DIFF, AUTOMATED Collected: 09/07/2017 Status: F Source: [place] 3:25 AM [facility] REPOSITORY TYPE CODE TESTS RESULT OUT OF RANGE REFERENCE UNITS LAB L100.1000 4.4-11.0 K/mm3 High WBC 11.3 LAB L100.1200 4.6-6.2 M/mm3 Low RBC 3.03 LAB L100.1300 13.0-16.5 g/dl Low HGB 9.8 LAB L100.1400 40-54 % Low HCT 28.8 LAB L100.1500 80-94 fL High MCV 95.0 LAB L100.1600 27.0-32.0 pg High MCH 32.3 LAB L100.1700 32-36 g/gl Normal MCHC 34.0 LAB L100.1810 11.6-14.6 % Normal RDW CV 14.1 LAB L100.1820 35.1-43.9 fl High RDW SD 46.6 LAB L100.1900 150-450 K/mm3 Normal PLT 179 LAB L100.2000 6.2-12.0 fl Normal MPV 11.8 LAB L100.2100 47-70 % High NEUT% 84.4 LAB L100.2200 19-41 % Low LY% 3.9 LAB L100.2300 0-10 % Normal MONO% 7.1 LAB L100.2400 0-5 % Normal EO% 4.3 LAB L100.2500 0-1 % Normal BASO% 0.1 LAB L100.2550 0.0-0.9 % Normal IM GRAN % 0.200 Result Comment: IG% - Immature Granulocytes (promyelocytes, myelocytes and metamyelocytes) > 1% indicates that a LEFT SHIFT is Present. LAB L100.2620 2.0-7.7 X10 3/uL High Absolute Neut 9.5 LAB L100.2720 0.83-4.51 X10 3/ul Low Absolute Lymph 0.44 LAB L100.4500 Normal SMEAR COMMENT SCANNED Result Comment: LYMPHOPENIA NOTED Performed By: #### L100.0100 #### [facility] Laboratory [facility] [place], [address] BASIC METABOLIC Collected: 09/07/2017 Status: F Source: [place] PROFILE (BMP) 3:25 AM [facility] REPOSITORY TYPE CODE TESTS RESULT OUT OF RANGE REFERENCE UNITS LAB L501.0100 74-106 mg/dL High GLU 197 Result Comment: Fasting Glucose result greater than or equal to 126 mg/dL suggests DIABETES MELLITUS per A.D.A. criteria. Please note revised GLUCOSE reference range effective 2017. LAB L501.1000 7-18 mg/dL High BUN 48 LAB L501.1100 0.70-1.30 mg/dL High CREAT,SERUM 2.71 Result Comment: The validity of the calculated GFR AND GFRAA in patients over 70 years has not been determined. Clinical correlation is essential. LAB L501.1110 >60 mL/min Low EST GFR 25 Result Comment: Non- GFR Calc LAB L501.1115 >60 mL/min Low EST GFR - AA 30 Result Comment: GFR Calc LAB L501.1255 ml/min Normal Estimated CRCL 22.70 LAB L501.1300 10-20 RATIO Normal BUN/CRE 17.7 LAB L501.2200 8.5-10 mg/dL Low .1 CA 8.2 LAB L501.5300 136-14 mmol/L Normal 5 NA 143 LAB L501.5600 3.5-5. mmol/L Normal 1 K 4.6 LAB L501.5900 98-107 mmol/L High CL 112 LAB L501.6100 21.0-3 mmol/L Normal 2.0 CO2 21.0 LAB L501.6200 5-15 Normal GAP 10 Performed By: #### L500.2500 #### [facility] [address] [facility] [place], [address] BEDSIDE GLUCOSE Collected: 09/06/2017 Status: F Source: [place] 9:29 PM [facility] REPOSITORY TYPE CODE TESTS RESULT OUT OF REFERENCE UNITS RANGE LAB L501.080 70-110 mg/dL High BEDSIDE GLU 190 Result Comment: MANAGEMENT OF PATIENT CARE PER NURSING PROTOCOL Performed By: #### L501.080 #### [facility] Laboratory Point of Care [address] [place] [address] M R STAPH AUREUS Collected: 09/06/2017 Status: F Source: [place] DNA BY PCR 5:45 PM [facility] REPOSITORY TYPE CODE TESTS RESULT OUT OF RANGE REFERENCE UNITS LAB L8200.1100 Negative Normal MRSA Negative RESULT Performed By: #### L8200.1000 #### [facility] [address] [facility] [place], [address] PROGRESS Observed: 09/06/2017 Status: COMPLETED Source: [place] 5:17 PM [facility] REPOSITORY HNO ID: [id number] Author: Abby Moser Ma Service: (none) Author Type: (none) Type: Progress Notes Filed: 09/06/2017 5:22 PM Note Text: PATIENT WAS SCHEDULED FOR A TCM APPT 09/06/17 AND MISSED APPT. D/T BEING READMITTED AT [facility] FOR: PROBABLE UNSTABLE ANGINA/CAD AND HEART CATHETERIZATION. BEDSIDE GLUCOSE Collected: 09/06/2017 Status: F Source: [place] 4:18 PM [facility] REPOSITORY TYPE CODE TESTS RESULT OUT OF REFERENCE UNITS RANGE LAB L501.080 70-110 mg/dL High BEDSIDE GLU 123 Result Comment: MANAGEMENT OF PATIENT CARE PER NURSING PROTOCOL Performed By: #### L501.080 #### [facility] Point of Care [address] [place], [place] [address] BEDSIDE GLUCOSE Collected: 09/06/2017 Status: F Source: [place] 11:16 AM [facility] REPOSITORY TYPE CODE TESTS RESULT OUT OF REFERENCE UNITS RANGE LAB L501.080 70-110 mg/dL High BEDSIDE GLU 121 Result Comment: MANAGEMENT OF PATIENT CARE PER NURSING PROTOCOL Performed By: #### L501.080 #### [facility] Point of Care [address] [place], [place] [id number] BEDSIDE GLUCOSE Collected: 09/06/2017 Status: F Source: [place] 6:49 AM [facility] REPOSITORY TYPE CODE TESTS RESULT OUT OF REFERENCE UNITS RANGE LAB L501.080 70-110 mg/dL High BEDSIDE GLU 118 Result Comment: MANAGEMENT OF PATIENT CARE PER NURSING PROTOCOL Performed By: #### L501.080 #### [facility] Point of Care [address] [place] [address] CBC W/DIFF, AUTOMATED Collected: 09/06/2017 Status: F Source: [place] 5:10 AM [facility] REPOSITORY TYPE CODE TESTS RESULT OUT OF RANGE REFERENCE UNITS LAB L100.1000 4.4-11.0 K/mm3 Normal WBC 8.4 LAB L100.1200 4.6-6.2 M/mm3 Low RBC 3.11 LAB L100.1300 13.0-16.5 g/dl Low HGB 9.8 LAB L100.1400 40-54 % Low HCT 29.4 LAB L100.1500 80-94 fL High MCV 94.5 LAB L100.1600 27.0-32.0 pg Normal MCH 31.5 LAB L100.1700 32-36 g/gl Normal MCHC 33.3 LAB L100.1810 11.6-14.6 % Normal RDW CV 13.8 LAB L100.1820 35.1-43.9 fl High RDW SD 46.1 LAB L100.1900 150-450 K/mm3 Normal PLT 163 LAB L100.2000 6.2-12.0 fl Normal MPV 11.2 LAB L100.2100 47-70 % Normal NEUT% 63.2 LAB L100.2200 19-41 % Low LY% 11.9 LAB L100.2300 0-10 % Normal MONO% 9.5 LAB L100.2400 0-5 % High EO% 14.5 LAB L100.2500 0-1 % Normal BASO% 0.7 LAB L100.2550 0.0-0.9 % Normal IM GRAN % 0.200 Result Comment: IG% - Immature Granulocytes (promyelocytes, myelocytes and metamyelocytes) > 1% indicates that a LEFT SHIFT is Present. LAB L100.2620 2.0-7.7 X10 3/uL Normal Absolute Neut 5.3 LAB L100.2720 0.83-4.51 X10 3/ul Normal Absolute Lymph 0.99 Performed By: #### L100.0100 #### [facility] [address] [place], [address] BASIC METABOLIC Collected: 09/06/2017 Status: F Source: [place] PROFILE (BMP) 5:10 AM [facility] REPOSITORY TYPE CODE TESTS RESULT OUT OF RANGE REFERENCE UNITS LAB L501.0100 74-106 mg/dL High GLU 117 Result Comment: Fasting Glucose result from 100 to 125 mg/dL suggests IMPAIRED HOMEOSTASIS per A.D.A. criteria. Please note revised GLUCOSE reference range effective 2017. LAB L501.1000 7-18 mg/dL High BUN 57 LAB L501.1100 0.70-1.30 mg/dL High CREAT,SERUM 2.94 Result Comment: The validity of the calculated GFR AND GFRAA in patients over 70 years has not been determined. Clinical correlation is essential. LAB L501.1110 >60 mL/min Low EST GFR 22 Result Comment: Non- GFR Calc LAB L501.1115 >60 mL/min Low EST GFR - AA 27 Result Comment: GFR Calc LAB L501.1255 ml/min Normal Estimated CRCL 20.92 LAB L501.1300 10-20 RATIO Normal BUN/CRE 19.4 LAB L501.2200 8.5-10 mg/dL Low .1 CA 8.2 LAB L501.5300 136-14 mmol/L Normal 5 NA 143 LAB L501.5600 3.5-5. mmol/L Normal 1 K 4.4 LAB L501.5900 98-107 mmol/L High CL 112 LAB L501.6100 21.0-3 mmol/L Normal 2.0 CO2 22.0 LAB L501.6200 5-15 Normal GAP 9 Performed By: #### L500.2500 #### [facility] [address] [place], [address] PROTHROMBIN TIME W/INR Collected: 09/06/2017 Status: F Source: [place] 5:10 AM [facility] REPOSITORY TYPE CODE TESTS RESULT OUT OF RANGE REFERENCE UNITS LAB L300.4150 11.7-14.9 SECONDS Normal PROTIME 14.1 LAB L300.4200 Normal INR 1.1 Performed By: #### L300.3900, L300.4310 #### [facility] [address] [place], [address] PARTIAL THROMBOPLAST Collected: 09/06/2017 Status: F Source: [place] TIME 5:10 AM [facility] REPOSITORY TYPE CODE TESTS RESULT OUT OF RANGE REFERENCE UNITS LAB L300.4310 24.1-36.2 Seconds Normal PTT 27.3 Performed By: #### L300.3900, L300.4310 #### [facility] [address] [place], [address] BEDSIDE GLUCOSE Collected: 09/06/2017 Status: F Source: [place] 3:43 AM [facility] REPOSITORY TYPE CODE TESTS RESULT OUT OF REFERENCE UNITS RANGE LAB L501.080 70-110 mg/dL High BEDSIDE GLU 113 Result Comment: MANAGEMENT OF PATIENT CARE PER NURSING PROTOCOL Performed By: #### L501.080 #### [facility] Laboratory Point of Care [address] [place] [address] BEDSIDE GLUCOSE Collected: 09/05/2017 Status: F Source: [place] 11:23 PM [facility] REPOSITORY TYPE CODE TESTS RESULT OUT OF REFERENCE UNITS RANGE LAB L501.080 70-110 mg/dL High BEDSIDE GLU 145 Result Comment: MANAGEMENT OF PATIENT CARE PER NURSING PROTOCOL Performed By: #### L501.080 #### [facility] Point of Care [address] [place] [address] URINALYSIS, COMPLETE Collected: 09/05/2017 Status: F Source: [place] 10:45 PM [facility] REPOSITORY Order Comment: Order Date: 09/05/17 How was Urine Obtained? CLEAN CATCH TYPE CODE TESTS RESULT OUT OF RANGE REFERENCE UNITS LAB L400.3000 Yellow COLOR Normal Yellow LAB L400.3050 Clear Normal CLARITY Clear LAB L400.3200 Normal mg/dl High GLUCOSE, UR 100 LAB L400.3300 Negative mg/dL Normal BILIRUBIN URINE Negative LAB L400.3400 Negative mg/dl Normal KETONE UR Negative LAB L400.3465 1.002-1.030 Normal SP.GR. DIPSTX 1.015 LAB L400.3550 5.0 - 8.0 pH UR Normal 6.0 LAB L400.3600 Negative mg/dl High PROT DIPSTX 100 LAB L400.3700 Normal mg/dl Normal UROBILI Normal LAB L400.3750 Negative Normal NITRITE UR Negative LAB L400.3780 Negative /ul High 10 OCCULT BLOOD-UR LAB L400.3800 Negative /ul LEUK Normal ESTERASE Negative LAB L400.4050 0-5 /hpf WBC 0 Normal SEEN LAB L400.4100 0-5 /hpf 0 Normal RBC-UA SEEN LAB L400.4150 0-5 /hpf SQUAM 0 Normal EPI SEEN LAB L400.4300 None Seen /hpf 0 Normal BACTERIA SEEN LAB L400.4350 <or=2+ /hpf 0 Normal MUCUS, URINE SEEN Performed By: #### L400.0001 #### [facility] [address] [place], [address] BEDSIDE GLUCOSE Collected: 09/05/2017 Status: F Source: [place] 4:32 PM [facility] REPOSITORY TYPE CODE TESTS RESULT OUT OF REFERENCE UNITS RANGE LAB L501.080 70-110 mg/dL High BEDSIDE GLU 277 Result Comment: MANAGEMENT OF PATIENT CARE PER NURSING PROTOCOL Performed By: #### L501.080 #### [facility] Point of Care [address] [place] [address] CONSULTATION Observed: 09/05/2017 Status: F Source: [place] 2:06 PM [facility] REPOSITORY [facility] Medical Records Department [address] [place] [address] Consultation 09/05/17 1354 MR#: [id number] Acct: [id number] Name: ANGIE DIXON Rep #: [id number] : 1945 72 From: Jayy Sanford MD PCP: Ramo Moreira III, MD Status: ADM IN Location: [place] [address] Problem List (1) Chest pain Status: Acute Qualifiers: Chest pain type: chest pain due to myocardial ischemia (2) History of pulmonary embolism Status: Chronic Comment: Provoked (3) History of coronary artery disease Status: Chronic (4) CKD (chronic kidney disease), stage III Status: Chronic (5) History of hypertension Status: Chronic (6) History of hyperlipidemia Status: Chronic Reason for Consult Date of Consultation: 09/05/17 Reason for Consultation: Coronary artery disease, chest pain, hypertension, hypercholesterolemia History of Present Illness: The patient is a 72 year old M, patient of Dr. George with a history of hypertension, diabetes, hypercholesterolemia, coronary artery disease status post three-vessel bypass surgery at [facility] in 2006 followed by angioplasty and stenting in 2012 and 2013 of unknown vessels. In addition the patient is a history of diverticulitis status post colectomy and colostomy bag in 2006 at the time of his bypass surgery. In addition the patient has significant hypertension and was recently admitted to [facility] on 08/30/17 for hypertension induced chest pain. His troponins were negative that time, and he was placed on nitroglycerin drip and his chest pain resolved. Patient's anginal equivalent appears to be back pain with radiation between the shoulder blades. At the time of his recent admission with respect to his chronic renal insufficiency underwent a stress test which was negative for inducible ischemia. His blood pressure medications were adjusted and he was compliant with them. The patient was doing well up until the evening of his admission when he developed recurrent mid scapular back pain, similar to his angina in the past as well as significant hypertension. He sought medical attention at [facility] where his EKG showed normal sinus rhythm, no acute changes. Patient was given sublingual nitroglycerin and placed on nitroglycerin paste which completely resolved his symptoms overnight. His admitting creatinine was 3.92 and decreased to 3.59 with IV fluids. His initial troponin was negative and then increase to 0.69 and followed by 0.64. On 08/31/17 he underwent an echocardiogram which showed an EF of 40-45%, and an RVSP of around 25 mmHg. [] Past Medical History Allergies/Adverse Reactions: Allergies atorvastatin calcium [From Lipitor] Allergy (Verified 09/04/17 22:47) Pain in joints verapamil [From Covera-HS] Allergy (Verified 09/04/17 22:47) passes out lisinopril Adverse Reaction (Verified 09/04/17 22:47) Other muscle pain Niacin Preparations Adverse Reaction (Verified 09/04/17 22:47) Pain in joints Cholesterol Meds Adverse Reaction (Uncoded 09/05/17 01:41) Other Home Medications: Ambulatory Orders Medication Instructions Recorded Allopurinol [Zyloprim] 300 mg PO DAILY 12/02/13 Past Medical History (Chronic Problems): Chronic Problems DM2 (diabetes mellitus, type 2) (Chronic) CKD (chronic kidney disease), stage IV (Chronic) History of pulmonary embolism (Chronic) Provoked History of coronary artery disease (Chronic) CKD (chronic kidney disease), stage III (Chronic) History of hypertension (Chronic) History of hyperlipidemia (Chronic) History of gout (Chronic) 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 2 coronary artery stents. Psychiatric History: - - PTSD - *Family History Sibling History Items: Diabetes, Heart Disease Smoking Status: Former smoker Tobacco Use: Cigarettes Review of Systems - Review of Systems General: Denies: Fever, Night Sweats, Fatigue Cardiovascular: Reports: Chest Discomfort, Chest Discomfort at Rest, Chest Tightness. Denies: Shortness of Breath, Orthopnea, PND, Peripheral Edema, Palpitations, Lightheadedness, Dizziness, Near Syncope, Syncope Respiratory: Denies: Cough, Sputum Production, Hemoptysis Gastrointestinal: Denies: Hematemesis, Hematochezia, Melena Genitourinary: Denies: Dysuria, Hematuria Skin: Denies: Rash Subjectve: Patient laying in bed, no acute distress. Objective: Vital Signs Temp Pulse Resp BP Pulse Ox 98.5 F 98 16 169/88 H 98 09/05/17 09:35 09/05/17 11:13 09/05/17 09:35 09/05/17 09:35 09/05/17 09:35 Oxygen Flow Rate (L/min) 2 Oxygen Delivery Method Room Air Weight: 166 lb 10.711 oz Body Mass Index (BMI) 26.1 Intake and Output for Last 24 Hours Intake Total 988 / 988 Output Total 200 / 200 Balance 788 / 788 General: Awake, Alert, Oriented x 3 HEENT: PERRL, EOMI, Sclera Non Icteric Neck: Supple, Good ROM, No Lymph Node Enlargement Lungs: Clear to auscultation Cardiovascular: Regular Rhythm, Normal S1, Normal S2, No Murmurs, No Rubs, No Gallops Vascular: No Carotid Bruits, Normal Femoral Pulses, Normal Radial Pulses, Normal Dorsalis Pedal Pulse, Normal Posterior Tibial Pulses Abdomen: Bowel Sounds Present, Soft, Non Tender, No HSM, No Organomegaly Extremities: No Cyanosis, No Clubbing, No edema Neurological: No Focal Motor or Sensory Deficit 09/05/17 02:00: Troponin I 0.069 H 09/05/17 04:55: Sodium 141, Potassium 4.0, Chloride 107, Carbon Dioxide 22.0, Anion Gap 12, BUN 71 H, Creatinine 3.59 H, Est GFR (MDRD) Af Amer 22 L, Est GFR (MDRD) Non-Af 18 L, BUN/Creatinine Ratio 19.8, Glucose 159 H, Calcium 8.7, Total Bilirubin 0.20, Troponin I 0.064 H 09/05/17 04:55: PT 14.0, INR 1.1 Rhythm: EKG: ECHO: Stress Test: Cardiac Cath: PCI: CT Surgery: Holter monitor: EPS: PPM: CXR: Chest CT Scan: Assessment/Plan 1. Coronary artery disease: Patient returns with hypertension induced mid scapular back pain similar to his previous anginal symptoms despite medical therapy. Given the patient's cardiac history, recurrence of symptoms, I recommend that he undergo a repeat left heart catheterization with graft angiography tomorrow morning after IV fluid resuscitation. I recommended he continue baby aspirin, Plavix, restart his Coreg but increasing it to 12.5 mg p.o. twice daily given his LV dysfunction and severe hypertension. In addition we will restart his Imdur 60 mg p.o. daily and discontinue his nitroglycerin paste. In addition he is a poor candidate for KIRTI inhibitors or arms given his chronic renal insufficiency. Recommend starting hydralazine 25 mg p.o. twice daily for blood pressure control. I had a long and thorough discussion with the patient and his family both on his previous admission and on this admission with respect to his chronic renal insufficiency and risk for acute on chronic renal failure requiring possible temporary or permanent dialysis. Patient agrees to proceed. 2. Hyperlipidemia: Apparently the patient is able to tolerate Pravachol only and is unable to tolerate atorvastatin or other niacin based products. Continue Pravachol 20 mg p.o. nightly. 3. Thank you very much for the opportunity to participate in the cardiac care of your patient. Consultation time took place between 12:30 PM and 1 PM. Code Visit Inpatient E AND M: 80729 Init Hosp L2 09/05/17 1406 <Electronically signed by Jayy Sanford MD> Date Jayy Sanford MD Cosigner Signature (if applicable): Date CC: Jayy Sanford MD; Ramo Moreira III, MD Signed BEDSIDE GLUCOSE Collected: 09/05/2017 Status: F Source: [place] 11:34 AM [facility] REPOSITORY TYPE CODE TESTS RESULT OUT OF REFERENCE UNITS RANGE LAB L501.080 70-110 mg/dL High BEDSIDE GLU 159 Result Comment: MANAGEMENT OF PATIENT CARE PER NURSING PROTOCOL Performed By: #### L501.080 #### [facility] Point of Care [address] [place] [address] CHEST WITHOUT Observed: 09/05/2017 Status: F Source: [place] CONTRAST 9:04 AM [facility] REPOSITORY [facility] Imaging Services [address] [place] [address] Chest without Contrast MR#: [id number] Acct: [id number] Name: ANGIE DIXON Rep #: [id number] : 1945 M 72 From: Saud Juarez DO PCP: Ramo Moreira III, MD Status: ADM IN Study: Chest without Contrast Date of Exam: 09/05/17 Exam# [id number] Ordering Dr: Marguerite Chaves MD STUDY: CT CHEST WITHOUT CONTRAST REASON FOR EXAM: Male, 72 years old. Upper back pain between the shoulders. Possible aneurysm RADIATION DOSAGE (If Supplied By Facility): CTDIvol = ( 14.62 ) mGy, DLP = ( 518.76 ) mGycm TECHNIQUE: Transaxial imaging was performed without the administration of intravenous contrast material. Individualized dose optimization techniques were used for this CT. COMPARISON: None. FINDINGS: Grossly unremarkable unenhanced thyroid. Lungs are adequately inflated with bibasilar atelectasis. No acute airspace disease. There is no demonstrated pleural abnormality. There is borderline cardiomegaly. Normal pericardium. Mild coronary artery disease. Sternal wires are noted. No suspicious lymphadenopathy. Calcified subcarinal lymph node. Normal hilar regions. Normal unenhanced pulmonary arteries. Normal aorta arch and descending thoracic aorta. There are multi-level degenerative changes of the thoracic spine. Dextroscoliosis of the thoracic spine. There is no demonstrated abnormality of the visualized upper abdomen. CT/Chest without Contrast IMPRESSION: 1. Lungs are adequately inflated and clear. 2. No evidence of thoracic aortic aneurysm 3. Dextroscoliosis of the thoracic spine Electronically Signed: Saud Juarez DO at 10:57 EDT Tel , Service support , CC: Ramo Moreira III, MD; Marguerite Chaves Button Puncher: Signed SPINE THORACIC Observed: 09/05/2017 Status: F Source: [place] WITHOUT CONTRAS 9:04 AM [facility] REPOSITORY [facility] Imaging Services [address] [place] [address] Spine Thoracic without Contras MR#: [id number] Acct: [id number] Name: ANGIE DIXON Rep #: [id number] : 1945 M 72 From: Saud Juarez DO PCP: Ramo Moreira III, MD Status: ADM IN Study: Spine Thoracic without Contras Date of Exam: 09/05/17 Exam# [id number] Ordering Dr: Marguerite Chaves MD STUDY: CT THORACIC SPINE WITHOUT CONTRAST REASON FOR EXAM: Male, 72 years old. Upper back pain between the shoulders RADIATION DOSAGE (If Supplied By Facility): CTDIvol = ( 21.83 ) mGy, DLP = ( 815.37 ) mGycm TECHNIQUE: The patient was scanned in a multi detector CT scanner. High resolution imaging was performed. Images were obtained from C6 to L1. Sagittal and coronal images were reconstructed. Individualized dose optimization techniques were used for this CT. COMPARISON: CT chest performed the same time FINDINGS: There is multilevel degenerative disc disease and cervical spondylosis. Normal kyphosis of the thoracic spine. There is a dextroscoliosis of the thoracic spine. There is multilevel endplate spondylosis of the thoracic spine. There is multilevel degenerative disc disease with loss of the disc space heights. No fracture The soft tissue structures are unremarkable. CT/Spine Thoracic without Contras IMPRESSION: Degenerative changes of the thoracic spine with dextroscoliosis curvature. No acute findings Electronically Signed: Saud DO Ann at 10:58 EDT Tel , Service support , CC: Ramo Moreira III, MD; Marguerite Chaves Button Puncher: Signed HISTORY AND PHYSICAL Observed: 09/05/2017 Status: F Source: [place] EXAM 6:48 AM [facility] REPOSITORY [facility] Medical Records Department [address] [place] [address] History and Physical 09/04/177 MR#: [id number] Acct: [id number] Name: ANGIE DIXON Rep #: [id number] : 1945 72 From: Pablo Burrell MD PCP: Ramo Moreira III, MD Status: ADM IN Y Location: [place] [address] Problem List (1) Chest pain Status: Acute Qualifiers: Chest pain type: chest pain due to myocardial ischemia History of Present Illness Date of Admission: 09/05/17 Chief Complaint: cp The patient is a 72 year old M [] 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 2 coronary artery stents. Psychiatric History: - - PTSD Smoking Status: Former smoker - *Family History Sibling History Items: Diabetes, Heart Disease Review of Systems Constitutional: Denies: Chills, Fever, Weight Change HEENT: Denies: Head Aches, Sinus Congestion, Sinus Drainage Cardiovascular: Denies: Chest Pain, Palpitations Respiratory: Denies: Cough, Shortness of breath at rest, Sputum production Gastrointestinal: Denies: Abdominal Pain, Nausea, Vomiting Genitourinary: Denies: Dysuria Musculoskeletal: Denies: Joint Pain, Joint Tenderness Skin: Denies: Rash, Wounds Neurological: Denies: Numbness, Tingling, Focal weakness Psychiatric: Denies: Anxiety, Depression, Homicidal Ideations, Suicidal Ideations Hematologic/ Lymphatic: Denies: Easy Bruising, Easy Bleeding VTE Information - Inpt Only VTE Present on Admission: No VTE Mechan Device Prophylaxis: None VTE Pharm Prophylaxis ordered?: Yes - Physical Exam Vital Signs Temp Pulse Resp BP Pulse Ox 98.2 F 116 H 20 H 164/100 H 97 09/04/17 22:43 09/04/17 22:43 09/04/17 22:43 09/04/17 22:43 09/04/17 23:02 Oxygen Delivery Method Room Air Weight: 177 lb 0.499 oz Body Mass Index (BMI) 27.7 Laboratory Tests Past 24 Hrs WBC 8.5 RBC 3.63 L Hgb 11.2 L Hct 33.6 L MCV 92.6 MCH 30.9 MCHC 33.3 RDW 14.1 RDW Differential 47.3 H Assessment/Plan All Active Problems Chest pain (Acute) see other h+P from 09/0509/05/17 0648 <Electronically signed by Pablo Burrell MD> Date Pablo Burrell MD Cosigner Signature: Date (if applicable) CC: aRmo Moreira III, MD; Pablo Burrell MD Signed BEDSIDE GLUCOSE Collected: 09/05/2017 Status: F Source: [place] 5:17 AM [facility] REPOSITORY TYPE CODE TESTS RESULT OUT OF REFERENCE UNITS RANGE LAB L501.080 70-110 mg/dL High BEDSIDE GLU 157 Result Comment: MANAGEMENT OF PATIENT CARE PER NURSING PROTOCOL Performed By: #### L501.080 #### [facility] Point of Care [address] [place] [address] TROPONIN-I Collected: 09/05/2017 Status: F Source: [place] 4:55 AM [facility] REPOSITORY Order Comment: 'TROP' Serial specimen #1, #2 or #3: 3 'TROP' Serial specimen #1, #2, #3, or #4: 3 TYPE CODE TESTS RESULT OUT OF RANGE REFERENCE UNITS LAB L501.4010 <0.045 ng/mL High 0.064 TROPONIN-I Result Comment: TROPONIN-I EXPECTED VALUES <0.045 Negative 0.045 - 0.590 Consistent with Cardiac Damage > OR = 0.600 Critical Value Not every elevated troponin is indicative of OK. These values should be used with clinical judgement in examining the patient's clinical picture for diagnosis. To establish a diagnosis of OK versus myocardial injury, there must be a demonstrated rise and/or fall in the troponin values, in addition to ischemic symptoms, EKG changes, new regional wall motion abnormality, and/or angiographical evidence. PLEASE NOTE: REFERENCE RANGES EDITED 17 Performed By: #### L501.4010, L500.4050 #### [facility] [address] [facility] [place], [place], [address] COMPREHENSIVE METABOLIC Collected: 09/05/2017 Status: F Source: [place] 4:55 AM [facility] REPOSITORY Order Comment: 'TROP' Serial specimen #1, #2 or #3: 3 'TROP' Serial specimen #1, #2, #3, or #4: 3 TYPE CODE TESTS RESULT OUT OF RANGE REFERENCE UNITS LAB L501.0100 74-106 mg/dL High GLU 159 Result Comment: Fasting Glucose result greater than or equal to 126 mg/dL suggests DIABETES MELLITUS per A.D.A. criteria. Please note revised GLUCOSE reference range effective 2017. LAB L501.1000 7-18 mg/dL High BUN 71 LAB L501.1100 0.70-1.30 mg/dL High CREAT,SERUM 3.59 Result Comment: The validity of the calculated GFR AND GFRAA in patients over 70 years has not been determined. Clinical correlation is essential. LAB L501.1110 >60 mL/min Low EST GFR 18 Result Comment: Non- GFR Calc LAB L501.1115 >60 mL/min Low EST GFR - AA 22 Result Comment: GFR Calc LAB L501.1255 ml/min Normal Estimated CRCL 17.13 LAB L501.1300 10-20 RATIO Normal BUN/CRE 19.8 LAB L501.1500 6.4-8. g/dL Normal 2 T PROT 7.0 LAB L501.1800 3.2-5. g/dL Normal 0 ALB 3.5 LAB L501.1950 2.2-4. g/dL Normal 2 GLOB 3.5 LAB L501.2000 0.9-2. RATIO Normal 4 A/G 1.0 LAB L501.2200 8.5-10 mg/dL Normal .1 CA 8.7 LAB L501.4100 15-37 U/L Normal AST 17 LAB L501.4305 45-117 U/L Normal ALK P 77 LAB L501.4405 16-61 U/L Normal ALT 23 LAB L501.4600 0.20-1 mg/dL Normal .00 T BILI 0.20 LAB L501.5300 136-14 mmol/L Normal 5 NA 141 LAB L501.5600 3.5-5. mmol/L Normal 1 K 4.0 LAB L501.5900 98-107 mmol/L Normal CL 107 LAB L501.6100 21.0-3 mmol/L Normal 2.0 CO2 22.0 LAB L501.6200 5-15 Normal GAP 12 Performed By: #### L501.4010, L500.4050 #### [facility] [address] [place], [address] PROTHROMBIN TIME W/INR Collected: 09/05/2017 Status: F Source: [place] 4:55 AM [facility] REPOSITORY TYPE CODE TESTS RESULT OUT OF RANGE REFERENCE UNITS LAB L300.4150 11.7-14.9 SECONDS Normal PROTIME 14.0 LAB L300.4200 Normal INR 1.1 Performed By: #### L300.3900 #### [facility] [address] [place], [address] EMERGENCY DEPARTMENT Observed: 09/05/2017 Status: F Source: [place] SUMMARY 4:20 AM [facility] REPOSITORY [facility] Medical Records Department [address] [place] [address] Emergency Department Summary 09/04/17 2257 MR#: [id number] Acct: [id number] Name: ANGIE DIXON Rep #: [id number] : 1945 72 From: Keo Amato MD PCP: Ramo Moreira III, MD Status: ADM IN - ER Visit Summary Date of Service: 09/04/17 Chief Complaint: [] Chest pain and upper middle back pain History of Present Illness: The patient is a 72 M [] presents with chest discomfort and upper middle back pain. He is been experiencing this for the last 10 days. Gradual onset intermittent. Worse with night mostly. Occasionally he gets it during the day. It is a burning sensation. Currently it is gone. He took one nitroglycerin at home before calling the paramedics. EMS gave 1 nitroglycerin and aspirin as well. He is on Plavix. No associated symptoms. He has a history of 3 stents and a CABG remotely. He recently was admitted 3 days ago and had a negative stress echo and enzymes. He was monitored. He was discharged as well. Physical Examination: [] Vital signs reviewed General: Well-nourished well-developed Head: Normocephalic atraumatic Eyes: Pupils equal round and reactive to light extraocular movements intact ENT: TMs clear no hemotympanum no trauma Neck: Nontender full range of motion Cardiovascular: Regular rate rhythm no murmurs normal S1-S2 Respiratory: No distress clear to auscultation bilaterally chest nontender Abdomen: Soft nontender nondistended normal bowel sounds no masses Back: Nontender no CVA tenderness Extremities: Nontender active range of motion 4 extremities no trauma Skin: Normal color no trauma Neuro alert oriented cranial nerves II through XII intact normal strength sensation reflexes Test Results: [] Emergency Department Course and Treatment: [] EKG shows sinus rate at a rate of 110. Positive PVC x2. Old left bundle branch block. Patient is pain-free. Chest x-ray and lab work obtained. Chest x-ray shows nothing acute. Lab work shows troponin 0 0.02. Creatinine 3.9 relatively unchanged from previous. Patient remains pain- free here. I read Dr. Sanford's cardiology note who recommends low threshold for repeat heart cath pain which the patient is having. Discussed with the hospitalist and the patient will be admitted for further cardiac evaluation is likely repeat heart cath. Treatment Plan: [] Disposition: [] Impression: [] Chest pain Mid back pain Chronic kidney disease This note was generated with toucanBoxation software. It may contain incorrect words, spelling, and punctuation that were not noted in review of the chart prior to signing ED Disposition - Plan for ED Patient: Chief Complaint: Chest Pain Referrals: Ramo Moreira III, MD [Primary Care Provider] - What to do if you have Problems For any increased pain, shortness of breath, bleeding, nausea or vomiting, chest pain, or any unexpected problems, contact your Primary Care Provider. Call [facility] ([phone]) or report to the closest Emergency Room. Call 911 if necessary. 09/05/17 0420 <Electronically signed by Keo Amato MD> Date Keo Amato MD Cosigner Signature (If Indicated): Date CC: Ramo Moreira III, MD HISTORY AND PHYSICAL Observed: 09/05/2017 Status: F Source: [place] EXAM 12:28 AM [facility] REPOSITORY [facility] Medical Records Department [address] [place] [address] History and Physical 09/05/17 001 MR#: [id number] Acct: [id number] Name: ANGIE DIXON Rep #: [id number] : 1945 72 From: Pablo Burrell MD PCP: Ramo Moreira III, MD Status: REG ER Y Location: ED Problem List (1) Chest pain Status: Acute Qualifiers: Chest pain type: chest pain due to myocardial ischemia (2) DM2 (diabetes mellitus, type 2) Status: Chronic Qualifiers: Diabetes mellitus chcf insulin use: with chcf use Diabetes mellitus complication status: with kidney complications Diabetes mellitus complication detail: with chronic kidney disease Chronic kidney disease stage: stage 4 (severe) Qualified Code(s): E11.22 - Type 2 diabetes mellitus with diabetic chronic kidney disease (3) CKD (chronic kidney disease), stage IV Status: Chronic (4) History of pulmonary embolism Status: Chronic Comment: Provoked (5) History of coronary artery disease Status: Chronic (6) History of hypertension Status: Chronic (7) History of hyperlipidemia Status: Chronic (8) History of gout Status: Chronic (9) 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 The pain began this evening while he was doing some things around the house and walking. The pain was sharp in mid back and radiated to the front of his chest. He denies feeling short of breath. The pain was relieved with nitroglycerin. He had a negative stress test at last hospitalization and per cardiology report if the pain returned he would get a heart catheterization. He is currently pain free. 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) Allergies atorvastatin calcium [From Lipitor] Allergy (Verified 09/04/17 22:47) Pain in joints verapamil [From Covera-HS] Allergy (Verified 09/04/17 22:47) passes out lisinopril Adverse Reaction (Verified 09/04/17 22:47) Other muscle pain Niacin Preparations Adverse Reaction (Verified 07/23/18 22:47) Pain in joints Home Medications: Ambulatory Orders Medication Instructions Recorded Allopurinol [Zyloprim] 300 mg PO DAILY 12/02/13 Surgical History: appendectomy, coronary bypass surgery, herniorrhaphy, - - History of ruptured bowel status post colostomy. 2 coronary artery stents. Psychiatric History: - - PTSD Smoking Status: Former smoker - *Family History Sibling History Items: Diabetes, Heart Disease Review of Systems Constitutional: Denies: Chills, Fever, Weight Change HEENT: Denies: Head Aches, Sinus Congestion, Sinus Drainage Cardiovascular: Reports: Chest Pain. Denies: Palpitations Respiratory: Denies: Cough, Shortness of breath at rest, Sputum production Gastrointestinal: Denies: Abdominal Pain, Nausea, Vomiting Genitourinary: Denies: Dysuria Musculoskeletal: Denies: Joint Pain, Joint Tenderness Skin: Denies: Rash, Wounds Neurological: Denies: Numbness, Tingling, Focal weakness Psychiatric: Denies: Anxiety, Depression, Homicidal Ideations, Suicidal Ideations Hematologic/ Lymphatic: Denies: Easy Bruising, Easy Bleeding VTE Information - Inpt Only VTE Present on Admission: No VTE Mechan Device Prophylaxis: SCD's VTE Pharm Prophylaxis ordered?: No - Physical Exam General: Alert, Oriented x3, Cooperative HEENT: Atraumatic, Normocephalic Neck: Supple, Negative Carotid Bruits Lungs: Clear to auscultation, Normal air movement Cardiovascular: Regular rate, Regular Rhythm, Normal S1, Normal S2, No murmurs Abdomen: Bowel Sounds Present, Soft, Non Tender Extremities: No edema, Capillary Refill Less than 3 Seconds Skin: No rashes, No breakdown Musculoskeletal: No Tenderness to Palpation of Joints or Extremities Neurological: Neuro grossly intact Psych/Mental Status: Normal Affect, Appropriate Vital Signs Temp Pulse Resp BP Pulse Ox 98.2 F 116 H 20 H 164/100 H 97 09/04/17 22:43 09/04/17 22:43 09/04/17 22:43 09/04/17 22:43 09/04/17 23:02 Oxygen Delivery Method Room Air Weight: 177 lb 0.499 oz Body Mass Index (BMI) 27.7 Laboratory Tests Past 24 Hrs WBC 8.5 RBC 3.63 L Hgb 11.2 L Hct 33.6 L MCV 92.6 MCH 30.9 MCHC 33.3 RDW 14.1 RDW Differential 47.3 H Assessment/Plan All Active Problems Chest pain (Acute) Chronic Problems DM2 (diabetes mellitus, type 2) (Chronic) CKD (chronic kidney disease), stage IV (Chronic) History of pulmonary embolism (Chronic) Provoked History of coronary artery disease (Chronic) CKD (chronic kidney disease), stage III (Chronic) History of hypertension (Chronic) History of hyperlipidemia (Chronic) History of gout (Chronic) 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) Plan - admit to progressive care unit - consult cardiology - NPO pending heart cath - will need aggressive hydration to reduce contrast nephropathy - cycle cardiac markers - morphine, oxygen, nitro and aspirin per routine chest pain protocol - cbc, bmp in am - IV normal saline at 150 cc/hour - scds for DVT prophylaxis - hydralazine 20mg IV q 6hrs prn hypertension bp >160/100 - hold routine medications while NPO Code Visit Inpatient E AND M: [id number] Init Hosp L3 09/05/17 0028 <Electronically signed by Pablo Burrell MD> Date Pablo Burrell MD Cosigner Signature: Date (if applicable) CC: Ramo Moreira III, MD; Pablo Burrell MD Signed CBC W/DIFF, AUTOMATED Collected: 09/04/2017 Status: F Source: [place] 11:00 PM [facility] REPOSITORY TYPE CODE TESTS RESULT OUT OF RANGE REFERENCE UNITS LAB L100.1000 4.4-11.0 K/mm3 Normal WBC 8.5 LAB L100.1200 4.6-6.2 M/mm3 Low RBC 3.63 LAB L100.1300 13.0-16.5 g/dl Low HGB 11.2 LAB L100.1400 40-54 % Low HCT 33.6 LAB L100.1500 80-94 fL Normal MCV 92.6 LAB L100.1600 27.0-32.0 pg Normal MCH 30.9 LAB L100.1700 32-36 g/gl Normal MCHC 33.3 LAB L100.1810 11.6-14.6 % Normal RDW CV 14.1 LAB L100.1820 35.1-43.9 fl High RDW SD 47.3 LAB L100.1900 150-450 K/mm3 Normal PLT 187 LAB L100.2000 6.2-12.0 fl Normal MPV 10.8 LAB L100.2100 47-70 % Normal NEUT% 65.5 LAB L100.2200 19-41 % Normal LY% 20.4 LAB L100.2300 0-10 % Normal MONO% 0.6 LAB L100.2400 0-5 % High EO% 12.9 LAB L100.2500 0-1 % Normal BASO% 0.6 LAB L100.2550 0.0-0.9 % Normal IM GRAN % 0.000 Result Comment: IG% - Immature Granulocytes (promyelocytes, myelocytes and metamyelocytes) > 1% indicates that a LEFT SHIFT is Present. LAB L100.2620 2.0-7.7 X10 3/uL Normal Absolute Neut 5.6 LAB L100.2720 0.83-4.51 X10 3/ul Normal Absolute Lymph 1.74 Performed By: #### L100.0100 #### [facility] [address] [place], [place], [address] BASIC METABOLIC Collected: 09/04/2017 Status: F Source: [place] PROFILE (BMP) 11:00 PM [facility] REPOSITORY TYPE CODE TESTS RESULT OUT OF RANGE REFERENCE UNITS LAB L501.0100 74-106 mg/dL High GLU 202 Result Comment: Glucose result greater than or equal to 200 mg/dL suggests DIABETES MELLITUS per A.D.A. criteria. Please note revised GLUCOSE reference range effective 2017. LAB L501.1000 7-18 mg/dL High BUN 73 LAB L501.1100 0.70-1.30 mg/dL High CREAT,SERUM 3.92 Result Comment: The validity of the calculated GFR AND GFRAA in patients over 70 years has not been determined. Clinical correlation is essential. LAB L501.1110 >60 mL/min Low EST GFR 16 Result Comment: Non- GFR Calc LAB L501.1115 >60 mL/min Low EST GFR - AA 20 Result Comment: GFR Calc LAB L501.1255 ml/min Normal Estimated CRCL 15.69 LAB L501.1300 10-20 RATIO Normal BUN/CRE 18.6 LAB L501.2200 8.5-10 mg/dL Normal .1 CA 9.2 LAB L501.5300 136-14 mmol/L Low 5 NA 135 LAB L501.5600 3.5-5. mmol/L Normal 1 K 4.2 LAB L501.5900 98-107 mmol/L Normal CL 102 LAB L501.6100 21.0-3 mmol/L Normal 2.0 CO2 23.0 LAB L501.6200 5-15 Normal GAP 10 Performed By: #### L500.2500, L501.4010 #### [facility] [address] [facility] [place], [place], [address] TROPONIN-I Collected: 09/04/2017 Status: F Source: [place] 11:00 PM [facility] REPOSITORY TYPE CODE TESTS RESULT OUT OF RANGE REFERENCE UNITS LAB L501.4010 <0.045 ng/mL Normal 0.025 TROPONIN-I Result Comment: TROPONIN-I EXPECTED VALUES <0.045 Negative 0.045 - 0.590 Consistent with Cardiac Damage > OR = 0.600 Critical Value Not every elevated troponin is indicative of OK. These values should be used with clinical judgement in examining the patient's clinical picture for diagnosis. To establish a diagnosis of OK versus myocardial injury, there must be a demonstrated rise and/or fall in the troponin values, in addition to ischemic symptoms, EKG changes, new regional wall motion abnormality, and/or angiographical evidence. PLEASE NOTE: REFERENCE RANGES EDITED 17 Performed By: #### L500.2500, L501.4010 #### [facility] [address] [place], [place], [address] CHEST PA AND LATERAL Observed: 09/04/2017 Status: F Source: [place] 10:56 PM [facility] REPOSITORY [facility] Imaging Services [address] [place] [address] Chest PA and Lateral MR#: [id number] Acct: [id number] Name: ANGIE DIXON Rep #: [id number] : 1945 M 72 From: Karson Stephens MD PCP: Ramo Moreira III, MD Status: REG ER Study: Chest PA and Lateral Date of Exam: 09/04/17 Exam# [id number] Ordering Dr: Keo Amato MD STUDY: X-RAY CHEST REASON FOR EXAM: Male, 72 years old. Chest pain TECHNIQUE: Frontal and lateral views of the chest. COMPARISON: 08/31/2017 FINDINGS: The lungs are clear and expanded. There is no demonstrated pleural abnormality. Sternal cerclage wires and vascular clips are present from a prior sternotomy and coronary artery bypass graft procedure (CABG). Normal mediastinum and giovanni. Normal visualized pulmonary arteries. Normal visualized aortic arch and descending thoracic aorta. There is a dextroscoliosis of the thoracic spine. The visualized bones and joints show degenerative changes. There is no demonstrated abnormality of the visualized soft tissue structures of the upper abdomen. RAD/Chest PA and Lateral IMPRESSION: No evidence for acute chest disease. Electronically Signed: Karson Stephens MD at 23:29 EDT , Service support , CC: Ramo Moreira III, MD; Keo Amato MD Button Puncher: Signed PROGRESS Observed: 09/04/2017 Status: COMPLETED Source: [place] 12:13 PM [facility] [place] REPOSITORY HNO ID: [id number] Author: Roseanne Sarabia MA Service: (none) Author Type: Trade Manager Type: Progress Notes Filed: 09/04/2017 5:46 PM Note Text: TRANSITION CARE MANAGEMENT (TCM) INITIAL CONTACT Trade Manager Outreach Provider Action/FYI: Admitted on 08/31 for chest pain AND hypertensive emergency--D/c from [facility] on 09/01 Initial contact with patient post discharge, spoke to patient. Patient identified by name and . SUMMARY: -Pt discharged from [facility] on 09/02/2007. -Admitted for: chest pain AND hypertensive emergency Do you have a hospital follow up appointment with your PCP? Appointment on 09/06 with PCP. MEDICATIONS: Many patients have questions or concerns about their medications once they are home. Were you prescribed any new medications? No Were you told to hold any medications? No Were any of your medications discontinued? No Do you have any questions about getting or taking your medications? No Your discharge instructions/After visit Summary (AVS) are important in guiding you through the recovery process. Is there anything I might help you understand? No Do you have all the necessary equipment and supplies at home? Yes Medical records from recent hospitalization: Placed for provider to review Roseanne Sarabia CMA BASIC METABOLIC Collected: 09/04/2017 Status: F Source: [place] PROFILE (BMP) 8:39 AM [facility] REPOSITORY Order Comment: Send Results To: Ramo Moreira III Reason for Laboratory Test Chronic kidney disease stage IV TYPE CODE TESTS RESULT OUT OF RANGE REFERENCE UNITS LAB L501.0100 74-106 mg/dL High GLU 179 Result Comment: Fasting Glucose result greater than or equal to 126 mg/dL suggests DIABETES MELLITUS per A.D.A. criteria. Please note revised GLUCOSE reference range effective 2017. LAB L501.1000 7-18 mg/dL High BUN 66 LAB L501.1100 0.70-1.30 mg/dL High CREAT,SERUM 3.63 Result Comment: The validity of the calculated GFR AND GFRAA in patients over 70 years has not been determined. Clinical correlation is essential. LAB L501.1110 >60 mL/min Low EST GFR 18 Result Comment: Non- GFR Calc LAB L501.1115 >60 mL/min Low EST GFR - AA 21 Result Comment: GFR Calc LAB L501.1300 10-20 RATIO Normal BUN/CRE 18.2 LAB L501.2200 8.5-10.1 mg/dL CA Normal 9.4 LAB L501.5300 136-145 mmol/L NA Normal 138 LAB L501.5600 3.5-5.1 mmol/L K Normal 4.6 LAB L501.5900 98-107 mmol/L CL Normal 101 LAB L501.6100 21.0-32.0 mmol/L Normal CO2 25.0 LAB L501.6200 5-15 Normal GAP 12 Performed By: #### L500.2500 #### [facility] [address] [place], [address] [facility] Observed: 09/04/2017 Status: COMPLETED Source: [place] 12:00 AM [facility] REPOSITORY Patient Outreach (FAMPWS) ANGIE DIXON ([id number]) 1945 M Date Time Provider Department 09/04/17 ROSEANNE SARABIA) FAMPWS During your visit today, we recorded the following information about you: Roseanne Sarabia CMA, MA 09/04/2017 5:46 PM Signed TRANSITION CARE MANAGEMENT (TCM) INITIAL CONTACT Trade Manager Outreach Provider Action/FYI: Admitted on 08/31 for chest pain AND hypertensive emergency--D/c from [facility] on 09/01 Initial contact with patient post discharge, spoke to patient. Patient identified by name and . SUMMARY: -Pt discharged from [facility] on 09/02/2007. -Admitted for: chest pain AND hypertensive emergency Do you have a hospital follow up appointment with your PCP? Appointment on 09/06 with PCP. MEDICATIONS: Many patients have questions or concerns about their medications once they are home. Were you prescribed any new medications? No Were you told to hold any medications? No Were any of your medications discontinued? No Do you have any questions about getting or taking your medications? No Your discharge instructions/After visit Summary (AVS) are important in guiding you through the recovery process. Is there anything I might help you understand? No Do you have all the necessary equipment and supplies at home? Yes Medical records from recent hospitalization: Placed for provider to review ANGELIQUE Maldonado Ma 09/06/2017 5:22 PM Signed PATIENT WAS SCHEDULED FOR A TCM APPT 09/06/17 AND MISSED APPT. D/T BEING READMITTED AT [facility] FOR: PROBABLE UNSTABLE ANGINA/CAD AND HEART CATHETERIZATION. Allergies As of Date: 09/04/2017 Noted Allergy Reaction COVERA-HS (VERAPAMIL HCL) 01/27/2005 5 - Intolerance Comments: passed out LISINOPRIL 03/11/2006 3 - Cough NIASPAN (NIACIN) 04/28/2009 2 - Rash Date Reviewed: 05/25/2017 Reviewed by: Roseanne ([facility]) HANNAH Sarabia - Fully Assessed Reason for Visit: Transition Of Care [4074] Cmt: Admitted on 08/31 for chest pain AND hypertensive emergency--D/c from [facility] on 09/01 Prescriptions as of 09/04/2017 Sig: ALLOPURINOL 100 MG TABLET Take 1 tablet by mouth once d* VENLAFAXINE 75 MG TABLET Take 2 tablets by mouth once * INSULIN GLARGINE (U-100) 100 * Inject 14 Units subcutaneousl* DOXAZOSIN 4 MG TABLET Take 1 tablet by mouth once d* AMLODIPINE 5 MG TABLET Take 1 tablet by mouth once d* CLOTRIMAZOLE-BETAMETHASONE 1 * Apply 1 application to affect* METOPROLOL TARTRATE 50 MG TAB* Take 1 tablet by mouth twice * PEN NEEDLE, DIABETIC 29 GAUGE* Use one needle per dose. 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] INVALID FOR*04/22/2010 UNEQUAL LEG LENGTH [M21.70] INVALID FOR* Hyposmolality and/or hyponatremia [E87.1] INVALID FOR*07/09/2014 Anemia, unspecified [D64.9] INVALID FOR*07/09/2014 Coronary atherosclerosis [I25.10] INVALID FOR* Contact dermatitis and other eczema, due to uns*INVALID FOR*07/09/2014 Embolism and thrombosis of unspecified site (HC*INVALID FOR*07/09/2014 PULM EMBOLISM/INFARCT IATROGENIC [T81.718A, I26* 07/09/2014 DVT-ARM [I82.629] 07/09/2014 Abscess of intestine [K63.0] INVALID FOR*07/09/2014 Gout [M10.9] INVALID FOR* Biceps tendon rupture [S46.219A] INVALID FOR*07/09/2014 Benign prostatic hyperplasia with urinary obstr*INVALID FOR* Chronic depression [F32.9] INVALID FOR* Hyperkalemia [E87.5] INVALID FOR*05/25/2017 ASHD (arteriosclerotic heart disease) [I25.10] INVALID FOR* Hyperlipidemia LDL goal <100 [E78.5] INVALID FOR* 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] INVALID FOR* Encounter for screening for malignant neoplasm *INVALID FOR*01/22/2015 Type 2 diabetes mellitus with stage 4 chronic k*INVALID FOR* Encounter Status:Closed by RAMO MOREIRA III, MD on 09/04/17 DISCHARGE SUMMARY Observed: 09/01/2017 Status: F Source: [place] 1:17 PM [facility] REPOSITORY [facility] Medical Records Department [address] [place] [id number] Discharge Summary 09/01/17 1003 MR#: [id number] Acct: [id number] Name: ANGIE DIXON Rep #: [id number] : 1945 72 From: Kavita Hinojosa COMPOSITE BOND TECHNICIAN-C PCP: Ramo Moreira III, MD Status: DIS VINH Y Location: [place] [address] ADDENDUM by Carmen Hogan on 09/01/17 at 1317 Code Visit ATTENDING PHYSICIAN DISCHARGE NOTE: I have seen and examined the patient independently and agree with the assessment, plan, history per Kavita Hinojosa as noted. Discharge Diagnoses: (1) Atypical Chest Pain w/ Underlying CAD, suspected secondary to poorly controlled HTN (2) CAD s/p PCI, CABG x 3 (3) Hypertension, Uncontrolled (4) Chronic Kidney Disease Stage IV (Baseline renal function 2.7-3) (5) Diabetes mellitus type II (6) Hyperlipidemia (7) Anxiety and Depression (8) GERD Discharge Summary: The patient is a 72 y/o M w/ PMHx: CAD stage IV, Diabetes mellitus type II, HTN, HLD, Gout, CAD s/p PCI (3 total) as well as CABG x 3, Hx Provoked PE, s/p Colostomy Status who presented to the [facility] ED on 08/31/17 w/ history of ongoing severe excruciating chest discomfort described as a burning with radiation to the middle of his shoulder blades into his back with atypically noted worsened with prone status as well as increased burping. EKG in ED LBBB w/ PVCs, CXR w/ no acute findings, initial trop 0.029. Admitted to the PCU, placed on a monitored bed to assure no acute myocardial infarction with serial cardiac enzymes and EKGs which remained unremarkable w/ trend 0.029-->0.024-->0.029. Cardiac stress ECHO performed and unremarkable for inducible ischemia. Given notable hypertension upon presentation, suspected as possible etiology for current presentation. Cardiology consulted, continued evaluation overnight without further chest pain. AM alterations to BP regimen performed secondary to mild renal function changes. BP remained improved since initial presentation. Patient discharged to home on altered regimen including increased statin, Lasix, isosorbide, Coreg, PPI with GI reflux complaints concurrently with recommended follow-up with primary care physician within 1 week for reevaluation in addition to follow-up with his spice miller, Dr. Patrick Gutierrez within 1-2 weeks to review admission and assure blood pressure remained stable with repeat basic metabolic panel at follow- up to assure stable renal function given chronic kidney disease and alterations to his regimen. Patient notified that if recurrent chest discomfort he would require cardiac catheterization. Discharge Time: > 35 Minutes OBSV E AND M: [id number] Observation care discharge 09/01/17 1317 <Electronically signed by Carmen Hogan > Date Carmen Hogan cc: DANNY Hinojosa; Carmen Hogan; Ramo Moreira III, MD; Patrick Gutierrez MD * Signed Discharge Date and Diagnosis Date of Admission: 08/31/17 Date of Discharge: 09/01/17 - Primary Discharge Diagnosis Active and Suspected Problems 1. Chest pain- ACS ruled out 2. 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 Electronically Signed: Lanie Batista MD at 5:16 EDT , Service support , Dr. Sanford- Cardiology Operations: None Procedures: - - Stress echo Summary of Care Provided: Patient is a 72-year-old male admitted 08/31/2017 due to chest pain. He has a past medical history of type 2 diabetes mellitus, hypertension, hyperlipidemia, CAD status post triple-vessel CABG and stenting, history of diverticulitis status post colostomy, chronic kidney disease stage IV, history of pulmonary embolism, history of gout. 1. Chest pain, history of CAD status post three-vessel bypass and stenting-troponin negative. Patient denies active chest pain. Dr. Sanford consulted during admission. Patient follows with Dr. Gutierrez, [facility] Cardiology as outpatient. Echocardiogram demonstrated an EF of 40-45%, stage I diastolic dysfunction, regional wall motion abnormalities, mild mitral valve insufficiency, trivial tricuspid valve insufficiency, RVSP estimated to be 25 mmHg, mild aortic valve insufficiency. Stress echo demonstrated no evidence of ischemia. Patient will follow up with Dr. Villeda and 1-2 weeks. If he continues to have chest pain, patient will follow up sooner with plans for cardiac catheterization as outpatient. He will continue aspirin, statin, Plavix at discharge. 2. Hypertensive urgency-originally placed on nitro drip on admission which has since been discontinued. Metoprolol changed to Coreg 6.25 mg twice daily. Patient was started on Imdur 60 mg daily and Lasix 40 mg daily. 3. Type 2 diabetes mellitus-continue home insulin regimen. 4. GERD-PPI increased at discharge given patient's complaints of chest pain at nighttime while lying flat. Continue Protonix 40 mg twice daily. If symptoms not improved, can resume once daily regimen. 5. Chronic kidney disease stage IV-creatinine at baseline. Repeat BMP in 3 days. To be followed by primary care physician. 6. Hyperlipidemia-home pravastatin regimen increased to 40 mg nightly. General: Alert, Oriented x3, Cooperative HEENT: Atraumatic, PERRLA, EOMI, Normocephalic Neck: Supple, No JVD, Negative Carotid Bruits Lungs: Clear to auscultation, Normal air movement Cardiovascular: Regular rate, No murmurs Abdomen: Bowel Sounds Present, Soft, Non Tender Extremities: No clubbing, No cyanosis, No edema, Capillary Refill Less than 3 Seconds Skin: No rashes, No breakdown Musculoskeletal: No Tenderness to Palpation of Joints or Extremities Neurological: Cranial nerves II-XII grossly intact, Neuro grossly intact Psych/Mental Status: Normal Affect, Appropriate Patient seen exam prior to discharge. Physical assessment as noted above. Patient stable for discharge home with follow-up with primary care physician and cardiology as noted above. This patient was seen by DANNY Obrien under the supervision of Dr. Hogan. Discharge Diet: Low fat/ Low Cholesterol Discharge Activity: Return to Normal Activity Call your doctor if you observe: Shortness of breath, Dizziness, Fainting spells, Chest pain Home Medications: Medications to take at Discharge Allopurinol [Zyloprim] 300 mg PO DAILY 12/02/13 Mirtazapine [Remeron] 15 mg PO QHS 12/02/13 Doxazosin Mesylate [Cardura] 2 mg PO QHS 01/30/15 Insulin Glargine,Hum.rec.anlog [Lantus] 14 unit SQ BREAKFAST 08/20/15 Venlafaxine XR [Effexor Xr] 150 mg PO DAILY 10/06/15 Clopidogrel Bisulfate [Plavix] 75 mg PO DAILY #0 12/04/15 Amlodipine [Norvasc] 1 tab PO DAILY 08/31/17 Potassium Chloride 1 tab PO DAILY 08/31/17 Aspirin [Aspirin, Baby] 81 mg PO DAILY@0800 #30 tab.chew 09/01/17 Carvedilol [Coreg (Beta Pedro)] 6.25 mg PO BID #60 tab 09/01/17 Furosemide [Lasix] 40 mg PO DAILY #30 tab 09/01/17 Isosorbide Mononitrate [Imdur] 60 mg PO DAILY #30 tab 09/01/17 Pantoprazole Sodium [Protonix] 40 mg PO BID #60 tab 09/01/17 Pravastatin [Pravachol] 40 mg PO QHS #30 tab 09/01/17 Following Prescrptions Were Given to Patient: Aspirin [Aspirin, Baby] 81 mg PO DAILY@0800 #30 tab.chew Furosemide [Lasix] 40 mg PO DAILY #30 tab Isosorbide Mononitrate [Imdur] 60 mg PO DAILY #30 tab Pravastatin [Pravachol] 40 mg PO QHS #30 tab Carvedilol [Coreg (Beta Pedro)] 6.25 mg PO BID #60 tab Pantoprazole Sodium [Protonix] 40 mg PO BID #60 tab Other Amb Orders: Basic Metabolic Profile (BMP) Time Frame: 3 Days, Location: Laboratory Primary Care Physician: Ramo Moreira III, MD [Primary Care Provider] - Please follow up with your Primary Care Physician in: 1 Week Please Follow Up With: Patrick Gutierrez MD When: 1-2 Weeks Disposition: Home Minutes spent on discharge:: 35 Patient Condition:: Stable Medical Necessity - Tobacco Use Smoking Status: Former smoker Tobacco Use: Non-smoker Meaningful Use Info Meaningful Use Diagnoses (Choose all that apply): None applicable 09/01/17 1019 <Electronically signed by Kavita MEREDITHC> Date Kavita MEREDITHC 09/01/17 1310<Electronically signed by Carmen Hogan > Cosigner Signature (if applicable): Date Carmen Hogan CC: DANNY Hinojosa; Carmen Hogan; Ramo Moreira III, MD; Patrick Gutierrez MD Signed 12 LEAD ELECTROCARDIOGRAM Observed: 09/01/2017 Status: F Source: [place] 1:17 PM [facility] REPOSITORY [facility] Cardiovascular [place] [address] 12 Lead EKG 08/31/17 0408 MR#: [id number] Acct: [id number] Name: ANGIE DIXON Rep #: [id number] : 1945 72 From: Woo Mills MD Attending Dr: Carmen Hogan Status: DIS VINH Ordering Dr: German Rivas MD Date: 08/31/17 Location: [facility] Sex: M C Admitted: 08/31/17 Test Reason : CP Blood Pressure : / mmHG Vent. Rate : 091 BPM Atrial Rate : 091 BPM P-R Int : 180 ms QRS Dur : 150 ms QT Int : 422 ms P-R-T Axes : 045 -02 089 degrees QTc Int : 519 ms Sinus rhythm with frequent Premature ventricular complexes Left bundle branch block Abnormal ECG Confirmed by WOO MILLS MD ([id number]), editorial intern TEA BATISTA ([id number]) on 09/01/2017 1:17:07 PM Referred By: CHECO Confirmed By:WOO MILLS MD 09/01/17 1317 Date Woo Mills MD CC: Carmen Hogan; Ramo Moreira III, MD; German Rivas MD Signed 12 LEAD ELECTROCARDIOGRAM Observed: 09/01/2017 Status: F Source: [place] 1:17 PM [facility] REPOSITORY [facility] Cardiovascular Services [address] [place] [address] 12 Lead EKG 08/31/17 0527 MR#: [id number] Acct: [id number] Name: ANGIE DIXON Rep #: [id number] : 1945 72 From: Woo Mills MD Attending Dr: Carmen Hogan Status: DIS VINH Ordering Dr: German Rivas MD Date: 08/31/17 Location: [facility] Sex: M C Admitted: 08/31/17 Test Reason : REPEAT Blood Pressure : / mmHG Vent. Rate : 087 BPM Atrial Rate : 087 BPM P-R Int : 192 ms QRS Dur : 152 ms QT Int : 432 ms P-R-T Axes : 059 -18 103 degrees QTc Int : 519 ms Sinus rhythm with Fusion complexes Left bundle branch block Abnormal ECG Confirmed by WOO MILLS MD ([id number]), editorial intern TEA BATISTA ([id number]) on 09/01/2017 1:17:22 PM Referred By: CHECO Confirmed By:WOO MILLS MD 09/01/17 1317 Date Woo Mills MD CC: Cramen Hogan; Ramo Moreira III, MD; German Rivas MD Signed BEDSIDE GLUCOSE Collected: 09/01/2017 Status: F Source: [place] 10:10 AM [facility] REPOSITORY TYPE CODE TESTS RESULT OUT OF REFERENCE UNITS RANGE LAB L501.080 70-110 mg/dL High BEDSIDE GLU 117 Result Comment: MANAGEMENT OF PATIENT CARE PER NURSING PROTOCOL Performed By: #### L501.080 #### [facility] Point of Care [address] [place] [address] DISCHARGE INSTRUCTION Observed: 09/01/2017 Status: F Source: [place] 10:03 AM [facility] REPOSITORY [facility] Medical Records Department [address] [place] [address] Instructions for Home/Discharge Instructions 09/01/17 1002 MR#: [id number] Acct: [id number] Name: ANGIE DIXON Clarisse Rep #: [id number] : 1945 72 From: Kavita Hinojosa COMPOSITE BOND TECHNICIAN-C PCP: Ramo Moreira III, MD Status: ADM VINH - Discharge Diagnoses Current Active Problems: Current Active and Chronic Problems Chest pain (Acute) You will use the following diet at home:: Cardiac Discharge Activity: Return to Normal Activity Call your doctor if you observe: Shortness of breath, Dizziness, Fainting spells, Chest pain Allergies/Adverse Reactions: Allergies atorvastatin calcium [From Lipitor] Allergy (Verified 08/31/17 04:12) Pain in joints verapamil [From Covera-HS] Allergy (Verified 08/31/17 04:12) passes out lisinopril Adverse Reaction (Verified 08/31/17 04:12) Other muscle pain Niacin Preparations Adverse Reaction (Verified 08/31/17 04:12) Pain in joints Medications to take at Discharge Allopurinol [Zyloprim] 300 mg PO DAILY 12/02/13 Mirtazapine [Remeron] 15 mg PO QHS 12/02/13 Doxazosin Mesylate [Cardura] 2 mg PO QHS 01/30/15 Insulin Glargine,Hum.rec.anlog [Lantus] 14 unit SQ BREAKFAST 08/20/15 Venlafaxine XR [Effexor Xr] 150 mg PO DAILY 10/06/15 Clopidogrel Bisulfate [Plavix] 75 mg PO DAILY #0 12/04/15 Amlodipine [Norvasc] 1 tab PO DAILY 08/31/17 Potassium Chloride 1 tab PO DAILY 08/31/17 Aspirin [Aspirin, Baby] 81 mg PO DAILY@0800 #30 tab.chew 09/01/17 Carvedilol [Coreg (Beta Pedro)] 6.25 mg PO BID #60 tab 09/01/17 Furosemide [Lasix] 40 mg PO DAILY #30 tab 09/01/17 Isosorbide Mononitrate [Imdur] 60 mg PO DAILY #30 tab 09/01/17 Pantoprazole Sodium [Protonix] 40 mg PO BID #60 tab 09/01/17 Pravastatin [Pravachol] 40 mg PO QHS #30 tab 09/01/17 The following prescriptions were given: Aspirin [Aspirin, Baby] 81 mg PO DAILY@0800 #30 tab.chew Furosemide [Lasix] 40 mg PO DAILY #30 tab Isosorbide Mononitrate [Imdur] 60 mg PO DAILY #30 tab Pravastatin [Pravachol] 40 mg PO QHS #30 tab Carvedilol [Coreg (Beta Pedro)] 6.25 mg PO BID #60 tab Pantoprazole Sodium [Protonix] 40 mg PO BID #60 tab Primary Care Physician: Ramo Moreira III, MD [Primary Care Provider] - Please follow up with your Primary Care Physician in: 1 Week Test Results: Test results from this visit will be discussed in further detail at your follow-up appointment, if applicable. Please Follow Up With: Patrick Gutierrez MD When: 1-2 Weeks Proposed Discharge Date: 09/01/17 09/01/17 1003 <Electronically signed by Kavita DELGADO> Date Kavita Hinojosa COMPOSITE BOND TECHNICIAN-C CC: Jayy Sanford MD; Ramo Moreira III, MD BEDSIDE GLUCOSE Collected: 09/01/2017 Status: F Source: [place] 7:05 AM [facility] REPOSITORY TYPE CODE TESTS RESULT OUT OF RANGE REFERENCE UNITS LAB L501.080 70-110 mg/dL Normal BEDSIDE GLU 103 Result Comment: MANAGEMENT OF PATIENT CARE PER NURSING PROTOCOL Performed By: #### L501.080 #### [facility] Point of Care [address] [facility] [address] [place] [address] TROPONIN-I Collected: 09/01/2017 Status: F Source: [place] 6:50 AM [facility] REPOSITORY Order Comment: 'TROP' Serial specimen #1, #2 or #3: 3 TYPE CODE TESTS RESULT OUT OF RANGE REFERENCE UNITS LAB L501.4010 <0.045 ng/mL Normal 0.015 TROPONIN-I Result Comment: TROPONIN-I EXPECTED VALUES <0.045 Negative 0.045 - 0.590 Consistent with Cardiac Damage > OR = 0.600 Critical Value Not every elevated troponin is indicative of OK. These values should be used with clinical judgement in examining the patient's clinical picture for diagnosis. To establish a diagnosis of OK versus myocardial injury, there must be a demonstrated rise and/or fall in the troponin values, in addition to ischemic symptoms, EKG changes, new regional wall motion abnormality, and/or angiographical evidence. PLEASE NOTE: REFERENCE RANGES EDITED 17 Performed By: #### L501.4010 #### [facility] [address] [place] [address]. [place], [address] TROPONIN-I Collected: 09/01/2017 Status: F Source: [place] 12:55 AM [facility] REPOSITORY Order Comment: 'TROP' Serial specimen #1, #2 or #3: 1 TYPE CODE TESTS RESULT OUT OF RANGE REFERENCE UNITS LAB L501.4010 <0.045 ng/mL Normal 0.027 TROPONIN-I Result Comment: TROPONIN-I EXPECTED VALUES <0.045 Negative 0.045 - 0.590 Consistent with Cardiac Damage > OR = 0.600 Critical Value Not every elevated troponin is indicative of OK. These values should be used with clinical judgement in examining the patient's clinical picture for diagnosis. To establish a diagnosis of OK versus myocardial injury, there must be a demonstrated rise and/or fall in the troponin values, in addition to ischemic symptoms, EKG changes, new regional wall motion abnormality, and/or angiographical evidence. PLEASE NOTE: REFERENCE RANGES EDITED 17 Performed By: #### L501.4010, L501.5200 #### [facility] [address] [place], [address] MAGNESIUM Collected: 09/01/2017 Status: F Source: [place] 12:55 AM [facility] REPOSITORY Order Comment: 'TROP' Serial specimen #1, #2 or #3: 1 TYPE CODE TESTS RESULT OUT OF RANGE REFERENCE UNITS LAB L501.5200 1.6-2.6 mg/dL Normal MG 2.1 Performed By: #### L501.4010, L501.5200 #### [facility] [address] [facility] [place], [address] CBC-COMPLETE BLOOD CNT Collected: 09/01/2017 Status: F Source: [place] NO DIFF 12:55 AM [facility] REPOSITORY TYPE CODE TESTS RESULT OUT OF RANGE REFERENCE UNITS LAB L100.1000 4.4-11.0 K/mm3 Normal WBC 7.7 LAB L100.1200 4.6-6.2 M/mm3 Low RBC 3.30 LAB L100.1300 13.0-16.5 g/dl Low HGB 10.4 LAB L100.1400 40-54 % Low HCT 31.1 LAB L100.1500 80-94 fL High MCV 94.2 LAB L100.1600 27.0-32.0 pg Normal MCH 31.5 LAB L100.1700 32-36 g/gl Normal MCHC 33.4 LAB L100.1810 11.6-14.6 % Normal RDW CV 14.1 LAB L100.1820 35.1-43.9 fl High RDW SD 46.2 LAB L100.1900 150-450 K/mm3 Normal PLT 191 LAB L100.2000 6.2-12.0 fl Normal MPV 11.4 Performed By: #### L100.0500 #### [facility] [address] [place], [address] BASIC METABOLIC Collected: 09/01/2017 Status: F Source: [place] PROFILE ([facility]) 12:55 AM [facility] REPOSITORY TYPE CODE TESTS RESULT OUT OF RANGE REFERENCE UNITS LAB L501.0100 74-106 mg/dL Normal GLU 80 Result Comment: Please note revised GLUCOSE reference range effective 2017. LAB L501.1000 7-18 mg/dL High BUN 51 LAB L501.1100 0.70-1.30 mg/dL High CREAT,SERUM 3.14 Result Comment: The validity of the calculated GFR AND GFRAA in patients over 70 years has not been determined. Clinical correlation is essential. LAB L501.1110 >60 mL/min Low EST GFR 21 Result Comment: Non- GFR Calc LAB L501.1115 >60 mL/min Low EST GFR - AA 25 Result Comment: GFR Calc LAB L501.1255 ml/min Normal Estimated CRCL 19.59 LAB L501.1300 10-20 RATIO Normal BUN/CRE 16.2 LAB L501.2200 8.5-10 mg/dL Normal .1 CA 8.5 LAB L501.5300 136-14 mmol/L Normal 5 NA 139 LAB L501.5600 3.5-5. mmol/L Normal 1 K 4.0 LAB L501.5900 98-107 mmol/L High CL 110 LAB L501.6100 21.0-3 mmol/L Normal 2.0 CO2 21.0 LAB L501.6200 5-15 Normal GAP 8 Performed By: #### L500.2500, L500.4100 #### [facility] [address] [place], [address] LIPID PROFILE Collected: 09/01/2017 Status: F Source: [place] 12:55 AM [facility] REPOSITORY TYPE CODE TESTS RESULT OUT OF RANGE REFERENCE UNITS LAB L501.4900 200 mg/dL High CHOL 209 Result Comment: <200 mg/dL Desirable 200-240 mg/dL Borderline >240 mg/dL High Risk LAB L501.5000 mg/dL High TRIG 229 Result Comment: The drugs N-Acetylcysteine and Metamizole may falsely depress this assay. Serum Triglycerides Reference Interval Normal <150 mg/dL Borderline high 150 - 199 mg/dL High 200 - 499 mg/dL Very High > or = 500 mg/dL LAB L501.6400 mg/dL Low HDL 37 Result Comment: The drugs N-Acetylcysteine and Metamizole may falsely depress this assay. Reference Range HDL <40 mg/dL Low HDL Cholesterol HDL >or= 60 mg/dL High HDL Cholesterol LAB L501.6500 0-130 mg/dL Normal LDL 126 LAB L501.6600 5-40 mg/dL High VLDL 46 Performed By: #### L500.2500, L500.4100 #### [facility] [address] [place], [address] CNPN Observed: 09/01/2017 Status: COMPLETED Source: [place] 12:00 AM [facility] REPOSITORY Telephone (CAWSTR) ANGIE DIXON ([id number]) 1945 M Date Time Provider Department 09/01/17 PATRICK GUTIERREZ During your visit today, we recorded the following information about you: Manuela Degroot RN 09/01/2017 2:07 PM Signed [facility] received [facility] from pt's admission received, placed in box to review Manuela Gutierrez MD 09/04/2017 4:44 PM Signed Noted. Please schedule office visit for 2 weeks. If he has recurrent chest pain in the meantime, he needs to go back to the [place] emergency department for angiography MD Beatrice Lux MA 09/05/2017 9:00 AM Signed Spoke with patient, he is currently admitted and stated they are discussing doing a heart Cath. Beatrice Degroot RN 09/13/2017 9:59 AM Signed Pt's hospital records printed and placed in box to review. Per cardiology progress notes pt is going to be following up with Dr. Sanford. Manuela Degroot RN Allergies As of Date: 09/01/2017 Noted Allergy Reaction COVERA-HS (VERAPAMIL HCL) 01/27/2005 5 - Intolerance Comments: passed out LISINOPRIL 03/11/2006 3 - Cough NIASPAN (NIACIN) 04/28/2009 2 - Rash Date Reviewed: 05/25/2017 Reviewed by: Roseanne ([facility]) HANNAH Sarabia - Fully Assessed Reason for Visit: Recheck [92] Prescriptions as of 09/01/2017 Sig: ALLOPURINOL 100 MG TABLET Take 1 tablet by mouth once d* VENLAFAXINE 75 MG TABLET Take 2 tablets by mouth once * INSULIN GLARGINE (U-100) 100 * Inject 14 Units subcutaneousl* DOXAZOSIN 4 MG TABLET Take 1 tablet by mouth once d* AMLODIPINE 5 MG TABLET Take 1 tablet by mouth once d* CLOTRIMAZOLE-BETAMETHASONE 1 * Apply 1 application to affect* METOPROLOL TARTRATE 50 MG TAB* Take 1 tablet by mouth twice * PEN NEEDLE, DIABETIC 29 GAUGE* Use one needle per dose. 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] INVALID FOR*04/22/2010 UNEQUAL LEG LENGTH [M21.70] INVALID FOR* Hyposmolality and/or hyponatremia [E87.1] INVALID FOR*07/09/2014 Anemia, unspecified [D64.9] INVALID FOR*07/09/2014 Coronary atherosclerosis [I25.10] INVALID FOR* Contact dermatitis and other eczema, due to uns*INVALID FOR*07/09/2014 Embolism and thrombosis of unspecified site (HC*INVALID FOR*07/09/2014 PULM EMBOLISM/INFARCT IATROGENIC [T81.718A, I26* 07/09/2014 DVT-ARM [I82.629] 07/09/2014 Abscess of intestine [K63.0] INVALID FOR*07/09/2014 Gout [M10.9] INVALID FOR* Biceps tendon rupture [S46.219A] INVALID FOR*07/09/2014 Benign prostatic hyperplasia with urinary obstr*INVALID FOR* Chronic depression [F32.9] INVALID FOR* Hyperkalemia [E87.5] INVALID FOR*05/25/2017 ASHD (arteriosclerotic heart disease) [I25.10] INVALID FOR* Hyperlipidemia LDL goal <100 [E78.5] INVALID FOR* 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] INVALID FOR* Encounter for screening for malignant neoplasm *INVALID FOR*01/22/2015 Type 2 diabetes mellitus with stage 4 chronic k*INVALID FOR* Encounter Status:Closed by MANUELA DEGROOT RN on 09/04/17 BEDSIDE GLUCOSE Collected: 08/31/2017 Status: F Source: [place] 10:26 PM [facility] REPOSITORY TYPE CODE TESTS RESULT OUT OF REFERENCE UNITS RANGE LAB L501.080 70-110 mg/dL High BEDSIDE GLU 145 Result Comment: MANAGEMENT OF PATIENT CARE PER NURSING PROTOCOL Performed By: #### L501.080 #### [facility] Point of Care [address] [place] [address] BEDSIDE GLUCOSE Collected: 08/31/2017 Status: F Source: [place] 6:09 PM [facility] REPOSITORY TYPE CODE TESTS RESULT OUT OF REFERENCE UNITS RANGE LAB L501.080 70-110 mg/dL High BEDSIDE GLU 279 Result Comment: MANAGEMENT OF PATIENT CARE PER NURSING PROTOCOL Performed By: #### L501.080 #### [facility] Point of Care [address] [place] [address] ECHOCARDIOGRAM COMPLETE Observed: 08/31/2017 Status: F Source: [place] 4:53 PM [facility] REPOSITORY [facility] Cardiovascular Services [address] [place] [address] Echo Complete 08/31/17 1543 MR#: [id number] Acct: [id number] Name: ANGIE DIXON Rep #: [id number] : 1945 72 From: Jayy Sanford MD Attending Dr: Ezra Ramirez MD Status: ADM VINH Ordering Dr: Jayy Sanford MD Date: 08/31/17 Location: [facility] Sex: M C Admitted: 08/31/17 Reason For Study: CHEST PAIN Procedure This was a 2D Doppler, Color Flow transthoracic echocardiogram. Exam performed portable in patient room. Left Ventricle Mildly dilated left ventricle. The estimated ejection fraction is 40-45 %. Stage 1 diastolic dysfunction. There are regional wall motion abnormalities as specified. Mid-Anterior : Mildly hypokinetic. Mid-anteroseptal : Mildly hypokinetic. Right Ventricle Normal size and thickness. Normal systolic function. Atria Normal left atrium. Normal right atrium. Normal atrial septum. Mitral Valve Mild diffuse mitral valve thickening. Mild (1+) eccentric mitral valve insufficiency. Tricuspid Valve Normal tricuspid valve. Trivial tricuspid valve insufficiency. Right ventricular systolic pressure estimated to be 25 mmHg. Aortic Valve Trisinus/trileaflet aortic valve. Mild diffuse aortic valve thickening. There is no aortic stenosis. Mild (1+) aortic valve insufficiency. Pulmonic Valve Normal pulmonic valve. Trivial pulmonic valve insufficiency. Great Vessels Calcified aortic root. Mild atherosclerosis of the aortic arch. Normal inferior vena cava. Inferior vena cava collapse with sniff. Pericardium/Pleural No pericardial effusion. MMode/2D Measurements AND Calculations LVIDd: 5.1 cm IVSd: 1.2 cm Ao root diam: 3.2 cm LVIDs: 4.0 cm LVPWd: 1.1 cm RVDd: 2.7 cm FS: 21.5 % LAV(MOD-bp): 55.5 ml LVAd ap4: 42.1 cm2 SV(MOD-sp4): 67.8 ml LAV(MOD-bp) Indexed: 29.4 ml/m2 EDV(MOD-sp4): 154.5 ml LAV(MOD-sp2): 55.3 ml EDV(sp4-el): 161.2 ml LAV(MOD-sp4): 54.2 ml LVAs ap4: 28.9 cm2 ESV(MOD-sp4): 86.7 ml ESV(sp4-el): 90.0 ml EF(MOD-sp4): 43.9 % EF(sp4-el): 44.2 % SV(sp4-el): 71.3 ml LA A4 area: 18.9 cm2 RA A4 area: 13.4 cm2 Time Measurements MV dec time: 0.29 sec Doppler Measurements AND Calculations MV E max johanny: 53.3 cm/sec Lat Peak E' Johanny: 7.2 cm/sec Med Peak E' Johanny: 4.8 cm/sec MV A max johanny: 80.8 cm/sec E/E' lat: 7.4 E/E' med: 11.2 MV E/A: 0.66 Ao V2 max: 120.9 cm/sec AI max johanny: 397.0 cm/sec LV V1 max: 66.6 cm/sec Ao max P.8 mmHg AI max P.0 mmHg LV V1 max P.8 mmHg AI dec slope: 282.2 cm/sec2 AI P1/2t: 412.0 msec PA V2 max: 94.2 cm/sec PI end-d johanny: 139.8 cm/sec TR max johanny: 221.6 cm/sec TR max P.6 mmHg Interpretation Summary Mildly dilated left ventricle. The estimated ejection fraction is 40-45 %. Stage 1 diastolic dysfunction. There are regional wall motion abnormalities as specified. Mild (1+) eccentric mitral valve insufficiency. Trivial tricuspid valve insufficiency. Right ventricular systolic pressure estimated to be 25 mmHg. Mild (1+) aortic valve insufficiency. There is no comparison study available. Ordering Physician: Jayy Sanford Referring Physician: RAMO MOREIRA Performed By: Katia Madden RDCS, RVT 08/31/171651 Date Jayy Sanford MD CC: Jayy Sanford MD; Ramo Moreira III, MD; Ezra Ramirez MD Date Dictated: 08/31/17 1543 Date Transcribed: 08/31/171651 Button Puncher: Signed BEDSIDE GLUCOSE Collected: 08/31/2017 Status: F Source: [place] 11:46 AM [facility] REPOSITORY TYPE CODE TESTS RESULT OUT OF REFERENCE UNITS RANGE LAB L501.080 70-110 mg/dL High BEDSIDE GLU 114 Result Comment: MANAGEMENT OF PATIENT CARE PER NURSING PROTOCOL Performed By: #### L501.080 #### [facility] Point of Care [address] [place] [address] CONSULTATION Observed: 08/31/2017 Status: F Source: [place] 10:54 AM [facility] REPOSITORY [facility] Medical Records Department [address] [place] [address] Consultation 08/31/17 1041 MR#: [id number] Acct: [id number] Name: ANGIE DIXON Rep #: [id number] : 1945 72 From: Jayy Sanford MD PCP: Ramo Moreira III, MD Status: ADM VINH Y Location: [place] [address] Problem List (1) Chest pain Status: Acute (2) History of pulmonary embolism Status: Chronic Comment: Provoked (3) History of coronary artery disease Status: Chronic (4) CKD (chronic kidney disease), stage III Status: Chronic (5) History of hypertension Status: Chronic (6) History of hyperlipidemia Status: Chronic Reason for Consult Date of Consultation: 08/31/17 Reason for Consultation: Chest pain, coronary artery disease status post three-vessel bypass surgery, angioplasty and stenting, hypertension, hypercholesterolemia, diabetes, chronic renal insufficiency History of Present Illness: The patient is a 72 year old M with a history of hypertension, diabetes, hypercholesterolemia, coronary artery disease status post three-vessel bypass surgery at [facility] in 2006, followed by angioplasty and stenting in 2013, of unknown vessels, follows with Dr. Villeda, also has a history of diverticulitis status post colectomy with colostomy bag in 2006 at around the time of his bypass surgery. In addition the patient has significant hypertension which appears to be marginally controlled. Patient has noted new onset substernal chest pain radiating to his right shoulder similar to his previous angina with associated hypertension. The patient took one sublingual nitroglycerin last evening which improved the pain, and then it returned. He sought medical attention at [facility]. At that time he had an EKG which showed normal sinus rhythm with baseline left bundle branch block and PVCs. His first 2 troponins have been negative. Due to his hypertension he was placed on a nitroglycerin drip, and his chest pain has completely resolved. On further history the patient states that he has had recumbent type chest pain laying down over the last week or so mostly in his back, which is improved with sitting forward. He denied any exertional symptoms. He has had no changes to his exercise capacity and no changes to his medications. He is compliant with medications as well. [] Past Medical History Allergies/Adverse Reactions: Allergies atorvastatin calcium [From Lipitor] Allergy (Verified 08/31/17 04:12) Pain in joints verapamil [From Covera-HS] Allergy (Verified 08/31/17 04:12) passes out lisinopril Adverse Reaction (Verified 08/31/17 04:12) Other muscle pain Niacin Preparations Adverse Reaction (Verified 08/31/17 04:12) Pain in joints Home Medications: Ambulatory Orders Medication Instructions Recorded Past Medical History (Chronic Problems): Chronic Problems DM2 (diabetes mellitus, type 2) (Chronic) CKD (chronic kidney disease), stage IV (Chronic) History of pulmonary embolism (Chronic) Provoked History of coronary artery disease (Chronic) CKD (chronic kidney disease), stage III (Chronic) History of hypertension (Chronic) History of hyperlipidemia (Chronic) History of gout (Chronic) 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 2 coronary artery stents. Psychiatric History: - - PTSD - *Family History Sibling History Items: Diabetes, Heart Disease Smoking Status: Former smoker Tobacco Use: Non-smoker Alcohol: None Review of Systems - Review of Systems General: Denies: Fever, Night Sweats, Fatigue Cardiovascular: Reports: Chest Discomfort at Rest. Denies: Chest Discomfort, Shortness of Breath, Orthopnea, PND, Peripheral Edema, Palpitations, Lightheadedness, Dizziness, Near Syncope, Syncope Respiratory: Denies: Cough, Sputum Production, Hemoptysis Gastrointestinal: Denies: Hematemesis, Hematochezia, Melena Genitourinary: Denies: Dysuria, Hematuria Skin: Denies: Rash Subjectve: Patient sitting in bed, no acute distress. Objective: Vital Signs Temp Pulse Resp BP Pulse Ox 97.7 F L 80 15 178/87 H 97 08/31/17 06:50 08/31/17 09:45 08/31/17 09:45 08/31/17 09:45 08/31/17 09:45 Oxygen Delivery Method Room Air Weight: 170 lb 6.677 oz Body Mass Index (BMI) 26.6 General: Awake, Alert, Oriented x 3 HEENT: PERRL, EOMI, Sclera Non Icteric Neck: Supple, Good ROM, No Lymph Node Enlargement Lungs: Clear to auscultation Cardiovascular: Regular Rhythm, Normal S1, Normal S2, No Murmurs, No Rubs, No Gallops Vascular: No Carotid Bruits, Normal Femoral Pulses, Normal Radial Pulses, Normal Dorsalis Pedal Pulse, Normal Posterior Tibial Pulses Abdomen: Bowel Sounds Present, Soft, Non Tender, No HSM, No Organomegaly Extremities: No Cyanosis, No Clubbing, No edema Neurological: No Focal Motor or Sensory Deficit 08/31/17 07:05: Troponin I 0.024 Rhythm: EKG: ECHO: Pending Stress Test: Cardiac Cath: PCI: CT Surgery: Holter monitor: EPS: PPM: CXR: Chest CT Scan: Assessment/Plan 1. Coronary artery disease: The patient presents with somewhat atypical chest pain with recumbency, improved with sitting forward, however does appear to get better with sublingual nitroglycerin and IV nitroglycerin drip. My suspicion is that he has significant hypertension induced chest pain, due to poorly controlled blood pressure. Nonetheless he has an extensive cardiac history having three-vessel bypass surgery about 11 years ago followed by subsequent angioplasty and stenting of unknown vessels in 2013. I requested that the old records from his bypass surgery as well as a subsequent angioplasty be obtained from Dr. Villeda's office. Patient is ruled out for myocardial infarction. I recommended that we change his metoprolol to Coreg 6.25 mg p.o. twice daily for better blood pressure control, start the patient on Cozaar 50 mg p.o. daily, as well as start Imdur 60 mg p.o. daily first dose now. We will wean the patient off his nitroglycerin drip as he is chest pain-free and has had no significant EKG changes or troponin abnormalities. If the patient is able to stay stable off his nitroglycerin drip and his blood pressure controlled, we will proceed with a modified Sandeep treadmill echocardiogram later this afternoon. If this is grossly abnormal for ischemia, he may require repeat catheterization and graft angiography. He is currently on Plavix daily, would recommend starting baby aspirin 81 mg p.o. daily and supplement to this. In addition I recommend a 2D echo with Doppler to document his LV function, and pulmonary pressures given his pulmonary embolism history. 2. Hyperlipidemia: Given the patient's diabetes and extensive coronary disease he requires aggressive LDL reduction. We will check his fasting lipid profile and adjust the statin medications to reduce his LDL at least less than 70 preferably less than that. 3. Chronic renal insufficiency: The patient require IV fluid preprocedure if he were to require a left heart catheterization. Current creatinine is 2.9. 4. Thank you very much for the opportunity to put dissipate in the cardiac care of your patient. Consultation time took place between 1020 and 11 AM. Code Visit Inpatient E AND M: [id number] Init Hosp L2 08/31/17 1054 <Electronically signed by Jayy Sanford MD> Date Jayy Sanford MD Cosigner Signature (if applicable): Date CC: Jayy Sanford MD; Ramo Moreira III, MD Signed TROPONIN-I Collected: 08/31/2017 Status: F Source: [place] 10:30 AM [facility] REPOSITORY Order Comment: 'TROP' Serial specimen #1, #2 or #3: 3 TYPE CODE TESTS RESULT OUT OF RANGE REFERENCE UNITS LAB L501.4010 <0.045 ng/mL Normal 0.029 TROPONIN-I Result Comment: TROPONIN-I EXPECTED VALUES <0.045 Negative 0.045 - 0.590 Consistent with Cardiac Damage > OR = 0.600 Critical Value Not every elevated troponin is indicative of OK. These values should be used with clinical judgement in examining the patient's clinical picture for diagnosis. To establish a diagnosis of OK versus myocardial injury, there must be a demonstrated rise and/or fall in the troponin values, in addition to ischemic symptoms, EKG changes, new regional wall motion abnormality, and/or angiographical evidence. PLEASE NOTE: REFERENCE RANGES EDITED 17 Performed By: #### L501.4010 #### [facility] [address] [place], [address] LIPID PROFILE Collected: 08/31/2017 Status: F Source: [place] 10:30 AM [facility] REPOSITORY TYPE CODE TESTS RESULT OUT OF RANGE REFERENCE UNITS LAB L501.4900 200 mg/dL High CHOL 224 Result Comment: <200 mg/dL Desirable 200-240 mg/dL Borderline >240 mg/dL High Risk LAB L501.5000 mg/dL High TRIG 238 Result Comment: The drugs N-Acetylcysteine and Metamizole may falsely depress this assay. Serum Triglycerides Reference Interval Normal <150 mg/dL Borderline high 150 - 199 mg/dL High 200 - 499 mg/dL Very High > or = 500 mg/dL LAB L501.6400 mg/dL Normal HDL 40 Result Comment: The drugs N-Acetylcysteine and Metamizole may falsely depress this assay. Reference Range HDL <40 mg/dL Low HDL Cholesterol HDL >or= 60 mg/dL High HDL Cholesterol LAB L501.6500 0-130 mg/dL High LDL 136 LAB L501.6600 5-40 mg/dL High VLDL 48 Performed By: #### L500.4100 #### [facility] [address] [place], [address] HISTORY AND PHYSICAL Observed: 08/31/2017 Status: F Source: [place] EXAM 7:08 AM [facility] REPOSITORY [facility] Medical Records Department [address] [place] [address] History and Physical 08/31/17 0631 MR#: [id number] Acct: [id number] Name: MARIAMANGIE Clarisse Rep #: [id number] : 1945 72 From: Ezra Ramirez MD PCP: Ramo Moreira III, MD Status: ADM VINH Y Location: [place] [address] Problem List (1) Chest pain Status: Acute History of Present Illness Date of Admission: 08/31/17 Chief Complaint: chest Pain The patient is a 72 year old M with a significant history of diverticulitis status post colostomy; GERD; diabetes mellitus; hypertension; hyperlipidemia; and CAD status post triple vessel CABG in 2006, stent in of 2012 and 2 more stents in 2013 who presents with excruciating chest pain 3 days. Patient described his chest pain as a burning and radiating to the middle of his shoulder blades. He states that his chest pain comes on at night when he is reclining in bed and improves when he wakes up so initially he attributed his chest pain to GERD. He tried nitroglycerin 3 times and each time got relief from it. Seeing that his chest pain is persistent he proceeded to the emergency department. Also he reported to the emergency room doctor that at some point his chest pain was relieved with burping. He described his chest pain severity as a 7 out of 10 when he was at home. At the time of his evaluation his chest pain was about 2. At the Emergency department his EKG showed left bundle-branch block with frequent PVCs. His initial troponin was negative. He denies any associated nausea or diaphoresis. He reports occasionally feeling clammy. His spice miller is Dr. Villeda [facility]. He reports that he has not seen his cardiology for a while. 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 2 coronary artery stents. Psychiatric History: - - PTSD Smoking Status: Former smoker Tobacco Use: Non-smoker Alcohol: None - *Family History Sibling History Items: Diabetes, Heart Disease Review of Systems Constitutional: Denies: Chills, Fever, Weight Change HEENT: Denies: Head Aches, Sinus Congestion, Sinus Drainage Cardiovascular: Reports: Chest Pain Respiratory: Denies: Cough, Shortness of breath at rest, Sputum production Gastrointestinal: Denies: Abdominal Pain, Nausea, Vomiting Genitourinary: Denies: Dysuria Musculoskeletal: Reports: - - Pain in between shoulder blades Skin: Denies: Rash, Wounds Neurological: Denies: Numbness, Tingling, Focal weakness Psychiatric: Denies: Anxiety, Depression, Homicidal Ideations, Suicidal Ideations Hematologic/ Lymphatic: Denies: Easy Bruising, Easy Bleeding VTE Information - Inpt Only VTE Present on Admission: No VTE Mechan Device Prophylaxis: None VTE Pharm Prophylaxis ordered?: Yes Patient Problems: Active and Suspected Problems Chest pain (Acute) - Physical Exam General: Alert, Oriented x3, Cooperative HEENT: Atraumatic, PERRLA, EOMI, Normocephalic Neck: Supple, No JVD, Negative Carotid Bruits Lungs: Clear to auscultation, Normal air movement Cardiovascular: Regular rate, No murmurs Abdomen: Bowel Sounds Present, Soft, Non Tender Extremities: No edema, Capillary Refill Less than 3 Seconds Skin: No rashes Musculoskeletal: No Tenderness to Palpation of Joints or Extremities Neurological: Cranial nerves II-XII grossly intact Psych/Mental Status: Normal Affect, Appropriate Vital Signs Temp Pulse Resp BP Pulse Ox 98.0 F 89 15 194/102 H 98 08/31/17 04:07 08/31/17 06:07 08/31/17 06:07 08/31/17 06:07 08/31/17 06:07 Assessment/Plan All Active Problems Chest pain (Acute) The patient is a 72 year old M with a significant history of diverticulitis status post colostomy; GERD; diabetes mellitus; hypertension; hyperlipidemia; and CAD status post triple vessel CABG in 2006, stent in of 2012 and 2 more stents in 2013 who presents with excruciating chest pain 3 days. Chest pain His chest pain is confounded by symptoms that may appear to be Gastrointestinal. However, his multiple risk factors of diabetes, hypertension, age and a previous CAD makes his chest pain concerning. Chest pain could also be due to elevated blood pressure. He has a left bundle branch block but this may be due to history of CABG or active coronary symptoms. Patient received aspirin 324 mg at the ED. We will continue baby aspirin daily Plavix continued Metoprolol escalated from 75 mg twice daily to 100 mg twice daily. Nitroglycerin drip which should help with his high blood pressure and prevent further chest pain. 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 Hypertension This could be contributing to his chest pain. Metoprolol as above. Amlodipine and Cardura continued. Nitroglycerin drip as above. Diabetes mellitus On Lantus adjusted due to n.p.o. status Correction scale protocol every 6 hours as patient is n.p.o. GERD Protonix escalated as above DVT prophylaxis Subcutaneous heparin. Code Visit OBSV E AND M: [id number] Initial observation care L2 08/31/17 0708 <Electronically signed by Ezra Ramirez MD> Date Ezra Ramirez MD Cosigner Signature: Date (if applicable) CC: Ramo Moreira III, MD; Ezra Ramirez MD Signed TROPONIN-I Collected: 08/31/2017 Status: F Source: [place] 7:05 AM [facility] REPOSITORY Order Comment: 'TROP' Serial specimen #1, #2 or #3: 2 TYPE CODE TESTS RESULT OUT OF RANGE REFERENCE UNITS LAB L501.4010 <0.045 ng/mL Normal 0.024 TROPONIN-I Result Comment: TROPONIN-I EXPECTED VALUES <0.045 Negative 0.045 - 0.590 Consistent with Cardiac Damage > OR = 0.600 Critical Value Not every elevated troponin is indicative of OK. These values should be used with clinical judgement in examining the patient's clinical picture for diagnosis. To establish a diagnosis of OK versus myocardial injury, there must be a demonstrated rise and/or fall in the troponin values, in addition to ischemic symptoms, EKG changes, new regional wall motion abnormality, and/or angiographical evidence. PLEASE NOTE: REFERENCE RANGES EDITED 17 Performed By: #### L501.4010 #### [facility] [address] [place], [place], [address] BEDSIDE GLUCOSE Collected: 08/31/2017 Status: F Source: [place] 7:03 AM [facility] REPOSITORY TYPE CODE TESTS RESULT OUT OF REFERENCE UNITS RANGE LAB L501.080 70-110 mg/dL High BEDSIDE GLU 159 Result Comment: MANAGEMENT OF PATIENT CARE PER NURSING PROTOCOL Performed By: #### L501.080 #### [facility] Point of Care [address] [place] [address] EMERGENCY DEPARTMENT Observed: 08/31/2017 Status: F Source: [place] SUMMARY 5:35 [facility] REPOSITORY [facility] Medical Records Department [address] [place] [address] Emergency Department Summary 08/31/17 0532 MR#: [id number] Acct: [id number] Name: ANGIE DIXON Rep #: [id number] : 1945 72 From: German Rivas MD PCP: Ramo Moreira III, MD Status: REG ER - ER Visit Summary Date of Service: 08/31/17 Chief Complaint: Chest pain History of Present Illness: The patient is a 72 M who presents with chest pain. He does have a history of coronary artery disease with prior stents and CABG. Over the past week he has been having frequent episodes of chest pain usually when he lays flat at night. He describes this as burning. It is often relieved with burping. However he had an episode last night that lasted until he took nitroglycerin and then had resolution of symptoms. He woke about 45 minutes prior to presentation tonight with recurrent pain which again resolved with nitroglycerin and he is pain-free at the time of my history. He states his pain is associated with shortness of breath and diaphoresis. Physical Examination: Afebrile blood pressure 200/104 otherwise unremarkable Moist mucous membranes Heart regular rate and rhythm Lungs are clear Abdomen soft Symmetric radial pulses Extremities nontender Alert Test Results: EKG shows sinus rhythm at a rate of 91 with PVCs and a left bundle branch block. Left bundle branch block is new when compared to prior EKG. Repeat EKG is unchanged. CBC BMP notable for BUN of 52 and creatinine of 2.92 which appears to be near his baseline. Troponin is normal. Chest x-ray shows no acute disease. Emergency Department Course and Treatment: Patient was pain- free at the time my evaluation. He was given labetalol for elevated blood pressure. On reevaluation he states his pain is beginning to return. Nitroglycerin and repeat EKG was ordered. However prior to the nitroglycerin being administered the patient states his pain again resolved. Although his symptoms do sound consistent with a gastrointestinal etiology I am concerned that the last 2 episodes resolved with nitroglycerin. Given his known history I do feel he should have serial enzymes and likely provocative testing. Treatment Plan: [] Disposition: Admit Impression: Chest pain This note was generated with UCAN dictation software. It may contain incorrect words, spelling, and punctuation that were not noted in review of the chart prior to signing ED Disposition - Plan for ED Patient: Chief Complaint: Chest Pain Referrals: Ramo Moreira III, MD [Primary Care Provider] - What to do if you have Problems For any increased pain, shortness of breath, bleeding, nausea or vomiting, chest pain, or any unexpected problems, contact your Primary Care Provider. Call [facility] ([phone]) or report to the closest Emergency Room. Call 911 if necessary. 08/31/17 0535 <Electronically signed by German Rivas MD> Date German Rivas MD Cosigner Signature (If Indicated): Date CC: Ramo Moreira III, MD CHEST PA AND LATERAL Observed: 08/31/2017 Status: F Source: [place] 4:21 AM [facility] REPOSITORY [facility] Imaging Services [address] [place] [id number] Chest PA and Lateral MR#: [id number] Acct: [id number] Name: ANGIE DIXON Rep #: [id number] : 1945 M 72 From: Lanie Batista MD PCP: Ramo Moreira III, MD Status: REG ER Study: Chest PA and Lateral Date of Exam: 08/31/17 Exam# [id number] Ordering Dr: German Rivas MD STUDY: X-RAY CHEST REASON FOR EXAM: Male, 72 years old. Chest pain and shortness of breath. TECHNIQUE: PA and lateral views of the chest. COMPARISON: December 02, 2013. FINDINGS: Cardiac monitoring leads are present. Patient has had a sternotomy. The lungs are underexpanded. There is a mild perihilar and interstitial thickening present in both lungs. There is no demonstrated pleural abnormality. Normal size heart. There are calcified mediastinal and hilar lymph nodes. Normal visualized pulmonary arteries. There is atherosclerotic calcification of the aortic arch with tortuosity. There is moderate curvature of the thoracic spine convexity towards the right. Estimated amount of angulation is approximately 26 degrees. Normal visualized ribs, clavicles, and shoulders. Filter is visible in inferior vena cava. RAD/Chest PA and Lateral IMPRESSION: No radiographic evidence of acute cardiopulmonary disease. Electronically Signed: Lanie Batista MD at 5:16 EDT , Service support , CC: Ramo Moreira III, MD; German Rivas MD Button Puncher: Signed BASIC METABOLIC Collected: 08/31/2017 Status: F Source: [place] PROFILE (BMP) 4:15 AM [facility] REPOSITORY TYPE CODE TESTS RESULT OUT OF RANGE REFERENCE UNITS LAB L501.0100 74-106 mg/dL High GLU 140 Result Comment: Fasting Glucose result greater than or equal to 126 mg/dL suggests DIABETES MELLITUS per A.D.A. criteria. Please note revised GLUCOSE reference range effective 2017. LAB L501.1000 7-18 mg/dL High BUN 52 LAB L501.1100 0.70-1.30 mg/dL High CREAT,SERUM 2.92 Result Comment: The validity of the calculated GFR AND GFRAA in patients over 70 years has not been determined. Clinical correlation is essential. LAB L501.1110 >60 mL/min Low EST GFR 23 Result Comment: Non- GFR Calc LAB L501.1115 >60 mL/min Low EST GFR - AA 27 Result Comment: GFR Calc LAB L501.1255 ml/min Normal Estimated CRCL 21.06 LAB L501.1300 10-20 RATIO Normal BUN/CRE 17.8 LAB L501.2200 8.5-10 mg/dL Normal .1 CA 9.4 LAB L501.5300 136-14 mmol/L Normal 5 NA 142 LAB L501.5600 3.5-5. mmol/L Normal 1 K 4.6 LAB L501.5900 98-107 mmol/L High CL 108 LAB L501.6100 21.0-3 mmol/L Normal 2.0 CO2 23.0 LAB L501.6200 5-15 Normal GAP 11 Performed By: #### L500.2500, L501.4010 #### [facility] [address] [place], [address] TROPONIN-I Collected: 08/31/2017 Status: F Source: [place] 4:15 AM [facility] REPOSITORY TYPE CODE TESTS RESULT OUT OF RANGE REFERENCE UNITS LAB L501.4010 <0.045 ng/mL Normal 0.029 TROPONIN-I Result Comment: TROPONIN-I EXPECTED VALUES <0.045 Negative 0.045 - 0.590 Consistent with Cardiac Damage > OR = 0.600 Critical Value Not every elevated troponin is indicative of OK. These values should be used with clinical judgement in examining the patient's clinical picture for diagnosis. To establish a diagnosis of OK versus myocardial injury, there must be a demonstrated rise and/or fall in the troponin values, in addition to ischemic symptoms, EKG changes, new regional wall motion abnormality, and/or angiographical evidence. PLEASE NOTE: REFERENCE RANGES EDITED 17 Performed By: #### L500.2500, L501.4010 #### [facility] [address] [facility] [place], [address] CBC W/DIFF, AUTOMATED Collected: 08/31/2017 Status: F Source: [place] 4:15 AM [facility] REPOSITORY TYPE CODE TESTS RESULT OUT OF RANGE REFERENCE UNITS LAB L100.1000 4.4-11.0 K/mm3 Normal WBC 8.8 LAB L100.1200 4.6-6.2 M/mm3 Low RBC 3.71 LAB L100.1300 13.0-16.5 g/dl Low HGB 11.7 LAB L100.1400 40-54 % Low HCT 34.8 LAB L100.1500 80-94 fL Normal MCV 93.8 LAB L100.1600 27.0-32.0 pg Normal MCH 31.5 LAB L100.1700 32-36 g/gl Normal MCHC 33.6 LAB L100.1810 11.6-14.6 % Normal RDW CV 13.9 LAB L100.1820 35.1-43.9 fl High RDW SD 45.3 LAB L100.1900 150-450 K/mm3 Normal PLT 224 LAB L100.2000 6.2-12.0 fl Normal MPV 11.4 LAB L100.2100 47-70 % Normal NEUT% 59.0 LAB L100.2200 19-41 % Low LY% 14.7 LAB L100.2300 0-10 % Normal MONO% 9.1 LAB L100.2400 0-5 % High EO% 16.1 LAB L100.2500 0-1 % Normal BASO% 1.0 LAB L100.2550 0.0-0.9 % Normal IM GRAN % 0.100 Result Comment: IG% - Immature Granulocytes (promyelocytes, myelocytes and metamyelocytes) > 1% indicates that a LEFT SHIFT is Present. LAB L100.2620 2.0-7.7 X10 3/uL Normal Absolute Neut 5.2 LAB L100.2720 0.83-4.51 X10 3/ul Normal Absolute Lymph 1.29 Performed By: #### L100.0100 #### [facility] [address] [place], [place], [address] RENAL PROFILE Collected: 08/17/2017 Status: F Source: [place] 8:38 AM [facility] REPOSITORY TYPE CODE TESTS RESULT OUT OF RANGE REFERENCE UNITS LAB L501.0100 74-106 mg/dL High GLU 133 Result Comment: Fasting Glucose result greater than or equal to 126 mg/dL suggests DIABETES MELLITUS per A.D.A. criteria. Please note revised GLUCOSE reference range effective 2017. LAB L501.1000 7-18 mg/dL High BUN 52 LAB L501.1100 0.70-1.30 mg/dL High CREAT,SERUM 2.86 Result Comment: The validity of the calculated GFR AND GFRAA in patients over 70 years has not been determined. Clinical correlation is essential. LAB L501.1110 >60 mL/min Low EST GFR 23 Result Comment: Non- GFR Calc LAB L501.1115 >60 mL/min Low EST GFR - AA 28 Result Comment: GFR Calc LAB L501.1300 10-20 RATIO Normal BUN/CRE 18.2 LAB L501.1800 3.2-5.0 g/dL Normal ALB 3.7 LAB L501.2200 8.5-10.1 mg/dL CA Normal 8.6 LAB L501.2300 2.5-4.9 mg/dL Normal PHOS 3.7 LAB L501.5300 136-145 mmol/L NA Normal 141 LAB L501.5600 3.5-5.1 mmol/L High K 5.2 LAB L501.5900 98-107 mmol/L High CL 108 LAB L501.6100 21.0-32.0 mmol/L Normal CO2 24.0 Performed By: #### L500.3600 #### [facility] [address] [facility] [place], [place], [id number] CBC-COMPLETE BLOOD CNT Collected: 08/17/2017 Status: F Source: [place] NO DIFF 8:38 AM [facility] REPOSITORY TYPE CODE TESTS RESULT OUT OF RANGE REFERENCE UNITS LAB L100.1000 4.4-11.0 K/mm3 Normal WBC 7.4 LAB L100.1200 4.6-6.2 M/mm3 Low RBC 4.01 LAB L100.1300 13.0-16.5 g/dl Low HGB 12.3 LAB L100.1400 40-54 % Low HCT 37.6 LAB L100.1500 80-94 fL Normal MCV 93.8 LAB L100.1600 27.0-32.0 pg Normal MCH 30.7 LAB L100.1700 32-36 g/gl Normal MCHC 32.7 LAB L100.1810 11.6-14.6 % Normal RDW CV 14.0 LAB L100.1820 35.1-43.9 fl High RDW SD 48.1 LAB L100.1900 150-450 K/mm3 Normal PLT 222 LAB L100.2000 6.2-12.0 fl Normal MPV 11.6 Performed By: #### L100.0500 #### [facility] [address] [facility] [place], [place], [id number] PTHIN Collected: 08/17/2017 Status: F Source: [place] 8:38 AM [facility] REPOSITORY TYPE CODE TESTS RESULT OUT OF RANGE REFERENCE UNITS LAB L509.1000 18.4-80.1 pg/mL High PTHIN 131.1 Performed By: #### L509.1000 #### [facility] [address] [place], [address] PROGRESS Observed: 05/26/2017 Status: COMPLETED Source: [place] 6:52 PM [facility] REPOSITORY HNO ID: [id number] Author: Ramo Moreira III Service: (none) Author Type: Physician Type: Progress Notes Filed: 05/26/2017 6:52 PM Note Text: Angie, Good news?the anemia is improving. Continue present medications. May recheck in 6 months. Ramo Moreira III, MD, FAAFP CBC Collected: 05/25/2017 Status: F Source: [place] 10:33 AM [facility] REPOSITORY TYPE CODE TESTS RESULT OUT OF REFERENCE UNITS RANGE LAB WBC 3.70-11.00 k/uL WBC 7.97 LAB RBC 4.20-6.00 m/uL Low RBC 3.68 LAB HGB 13.0-17.0 g/dL Low Hemoglobin 11.5 LAB HCT 39.0-51.0 % Low Hematocrit 36.6 LAB MCV 80.0-100.0 fL MCV 99.5 LAB MCH 26.0-34.0 pG MCH 31.3 LAB MCHC 30.5-36.0 g/dL MCHC 31.4 LAB RDWCV 11.5-15.0 % RDW-CV 13.6 LAB PLTCT 150-400 k/uL Platelet Count 216 LAB MPV 9.0-12.7 fL MPV 11.8 LAB ABSNUC <0.01 k/uL Absolute nRBC <0.01 Performed By: #### CBC #### [facility] [address] [place], [place] [address] HEP C AB IA W/CONF Collected: 05/25/2017 Status: F Source: [place] 10:32 AM [facility] REPOSITORY TYPE CODE TESTS RESULT OUT OF REFERENCE UNITS RANGE LAB AHCV Negative Hepatitis C Ab Negative IA Performed By: #### AHCV1B, HBA1C #### [facility] [employer] [address] [place], [place] [address] HEMOGLOBIN A1C Collected: 05/25/2017 Status: F Source: [place] 10:32 AM [facility] REPOSITORY TYPE CODE TESTS RESULT OUT OF REFERENCE UNITS RANGE LAB HGBA1C 4.3-5.6 % High Hemoglobin A1c 7.4 LAB HBA0 mg/dL Est. Average Glucose 166 Result Comment: eAG: (Estimated average glucose) is a calculated value from HgbA1c and is specialty sales representative of the average blood glucose level in the last 2-3 month period. Performed By: #### AHCV1B, HBA1C #### [facility] [address] [place], [place] [address] PROGRESS Observed: 05/25/2017 Status: COMPLETED Source: [place] 10:00 AM [facility] REPOSITORY HNO ID: [id number] Author: Ramo Moreira III Service: (none) Author Type: Physician Type: Progress Notes Filed: 05/25/2017 12:47 PM Note Text: SUBJECTIVE: This is a 72 year old male that is here today for Chronic Medical Conditions. 1. diabetes mellitus II with CKD IV: c/o intense itching since starting lantus 2 yrs ago. home glu 80 ac supper and 100 in AM. No hypoglycemia. 2. hypertension 3. hyperlipidemia 4. depression--with PTSD. Meds working well. 5. PAD: no claudication. 6. ASHD: s/p CABG. No chest pain, angina, IBANEZ. PAST MEDICAL HISTORY Diagnosis Date - ASHD (arteriosclerotic heart disease) 2006 CABG 3, [place] - BPH (benign prostatic hypertrophy) with urinary obstruction 07/09/2014 - DVT of upper extremity (deep vein thrombosis) ([facility]) - Esophageal reflux - Essential hypertension, benign - Gout 04/22/2010 - Iatrogenic pulmonary embolism and infarction ([facility]) - NSTEMI (non-ST elevated myocardial infarction) ([facility]) 2012 - Other and unspecified hyperlipidemia - Type 2 diabetes mellitus with stage 4 chronic kidney disease (HCC) 06/05/2015 - Unequal leg length (acquired) Current Outpatient Prescriptions on File Prior to Visit: insulin glargine (LANTUS SOLOSTAR) 100 unit/mL (3 mL) inpn Inject 22 Units subcutaneously daily at bedtime. amLODIPine (NORVASC) 5 mg tablet Take 1 tablet by mouth once daily. clotrimazole-betamethasone (LOTRISONE) cream Apply 1 application to affected area twice daily. metoprolol tartrate, short acting, (LOPRESSOR) 50 mg tablet Take 1 tablet by mouth twice daily. allopurinol (ZYLOPRIM) 100 mg tablet Take 2 tablets by mouth once daily. For gout. venlafaxine (EFFEXOR) 75 mg tablet Take 2 tablets by mouth once daily. doxazosin (CARDURA) 2 mg tablet Take 1 tablet by mouth daily at bedtime. Insulin [place], Disposable, (PEN NEEDLE) 29 gauge X 1/2 ndle Use one needle per dose. one per day aspirin, enteric coated (ASPIR-LOW) 81 mg EC tablet Take 1 tablet by mouth once daily. clopidogrel (PLAVIX) 75 mg tablet Take 1 tablet by mouth once daily. 9274 pravastatin (PRAVACHOL) 20 mg tablet Take 20 mg by mouth once daily. omeprazole (PRILOSEC) 20 mg capsule Take 1 capsule by mouth once daily. mirtazapine 15 mg tablet Take 1 tablet by mouth daily at bedtime. No current facility-administered medications on file prior to visit. FAMILY HISTORY Problem Relation Age of Onset - Stroke Mother - Stroke Father Social History Substance Use Topics - Smoking status: Former Smoker Packs/day: 3.00 Years: 3.00 Types: Cigarettes Quit date: 09/20/1971 - Smokeless tobacco: Never Used - Alcohol use No BP 165/89 Pulse 75 Resp 16 Wt 79.8 kg (176 lb) BMI 26.76 kg/m2 . OBJECTIVE: APPEARANCE Well appearing, alert, in no acute distress, well-hydrated, well nourished. NECK Supple, no adenopathy; thyroid symmetric, normal size, no bruits HEART RRR with normal S1 and S2, no murmurs, no gallops, no JVD appreciated LUNG clear to auscultation ABDOMEN bowel sounds normoactive, no bruits, soft, non-tender, non-distended, without organomegaly or palpable masses, colostomy LLQ working well , no tenderness to palpation EXTREMITIES Extremities normal, No deformities, No skin discoloration, No edema, Normal pulses bilaterally. and Feet: Shoes and socks removed, No deformities, ulcers, calluses, normal distal pulses and sensitive to 10 gm monofilament Appearance: well dressed well groomed, cooperative and pleasant Behavior: good eye contact Speech: fluent and coherent Mood: euthymic Affect: appropriate Perceptions: none Thought process: goal directed Thought Content: normal Intelligence level: normal Insight: good Judgment: good ASSESSMENT: diabetes mellitus II with CKD IV--stable renal function hypertension--not at goal PAD--well controlled w/o claudication depression--well controlled PTSD--stable PLAN: try taking lantus 14 units in morning and observe for change in itching same other medications HbA1c today return to office 6 mos and as needed follow up with specialists increase cardura 4mg at bedtime--nurse bp check in 2 wks follow bp JENNY Pitts MD, III MD CNOV Observed: 05/25/2017 Status: COMPLETED Source: [place] 9:40 AM [facility] REPOSITORY [facility] ANGIE DIXON ([id number]) 1945 M Date Time Provider Department 05/25/17 9:40 AM RAMO MOREIRA III During your visit today, we recorded the following information about you: Pulse Respiration Blood pressure Weight 75/minute 16/minute 165/89 79.8 kg Ramo Moreira III MD 05/25/2017 12:47 PM Signed SUBJECTIVE: This is a 72 year old male that is here today for Chronic Medical Conditions. 1. diabetes mellitus II with CKD IV: c/o intense itching since starting lantus 2 yrs ago. home glu 80 ac supper and 100 in AM. No hypoglycemia. 2. hypertension 3. hyperlipidemia 4. depression--with PTSD. Meds working well. 5. PAD: no claudication. 6. ASHD: s/p CABG. No chest pain, angina, IBANEZ. PAST MEDICAL HISTORY Diagnosis Date - ASHD (arteriosclerotic heart disease) 2006 CABG 3, [place] - BPH (benign prostatic hypertrophy) with urinary obstruction 07/09/2014 - DVT of upper extremity (deep vein thrombosis) (HCC) - Esophageal reflux - Essential hypertension, benign - Gout 04/22/2010 - Iatrogenic pulmonary embolism and infarction (HCC) - NSTEMI (non-ST elevated myocardial infarction) ([facility]) 2012 - Other and unspecified hyperlipidemia - Type 2 diabetes mellitus with stage 4 chronic kidney disease ([facility]) 06/05/2015 - Unequal leg length (acquired) Current Outpatient Prescriptions on File Prior to Visit: insulin glargine (LANTUS SOLOSTAR) 100 unit/mL (3 mL) inpn Inject 22 Units subcutaneously daily at bedtime. amLODIPine (NORVASC) 5 mg tablet Take 1 tablet by mouth once daily. clotrimazole-betamethasone (LOTRISONE) cream Apply 1 application to affected area twice daily. metoprolol tartrate, short acting, (LOPRESSOR) 50 mg tablet Take 1 tablet by mouth twice daily. allopurinol (ZYLOPRIM) 100 mg tablet Take 2 tablets by mouth once daily. For gout. venlafaxine (EFFEXOR) 75 mg tablet Take 2 tablets by mouth once daily. doxazosin (CARDURA) 2 mg tablet Take 1 tablet by mouth daily at bedtime. Insulin [place], Disposable, (PEN NEEDLE) 29 gauge X 1/2 ANDquot; ndle Use one needle per dose. one per day aspirin, enteric coated (ASPIR-LOW) 81 mg EC tablet Take 1 tablet by mouth once daily. clopidogrel (PLAVIX) 75 mg tablet Take 1 tablet by mouth once daily. 9274 pravastatin (PRAVACHOL) 20 mg tablet Take 20 mg by mouth once daily. omeprazole (PRILOSEC) 20 mg capsule Take 1 capsule by mouth once daily. mirtazapine 15 mg tablet Take 1 tablet by mouth daily at bedtime. No current facility-administered medications on file prior to visit. FAMILY HISTORY Problem Relation Age of Onset - Stroke Mother - Stroke Father Social History Substance Use Topics - Smoking status: Former Smoker Packs/day: 3.00 Years: 3.00 Types: Cigarettes Quit date: 09/20/1971 - Smokeless tobacco: Never Used - Alcohol use No BP 165/89 Pulse 75 Resp 16 Wt 79.8 kg (176 lb) BMI 26.76 kg/m2 . OBJECTIVE: APPEARANCE Well appearing, alert, in no acute distress, well- hydrated, well nourished. NECK Supple, no adenopathy; thyroid symmetric, normal size, no bruits HEART RRR with normal S1 and S2, no murmurs, no gallops, no JVD appreciated LUNG clear to auscultation ABDOMEN bowel sounds normoactive, no bruits, soft, non-tender, non-distended, without organomegaly or palpable masses, colostomy LLQ working well , no tenderness to palpation EXTREMITIES Extremities normal, No deformities, No skin discoloration, No edema, Normal pulses bilaterally. and Feet: Shoes and socks removed, No deformities, ulcers, calluses, normal distal pulses and sensitive to 10 gm monofilament Appearance: well dressed well groomed, cooperative and pleasant Behavior: good eye contact Speech: fluent and coherent Mood: euthymic Affect: appropriate Perceptions: none Thought process: goal directed Thought Content: normal Intelligence level: normal Insight: good Judgment: good ASSESSMENT: diabetes mellitus II with CKD IV--stable renal function hypertension--not at goal PAD--well controlled w/o claudication depression--well controlled PTSD--stable PLAN: try taking lantus 14 units in morning and observe for change in itching same other medications HbA1c today return to office 6 mos and as needed follow up with specialists increase cardura 4mg at bedtime--nurse bp check in 2 wks follow bp JENNY Pitts MD, III MD Frank A Cebul, III MD 05/25/2017 10:22 AM Signed PLAN: try taking lantus 14 units in morning and observe for change in itching same other medications HbA1c today return to office 6 mos and as needed follow up with specialists follow BP Ramo Moreira III MD Referring Provider: SELF [[id number]] Allergies As of Date: 05/25/2017 Noted Allergy Reaction COVERA-HS (VERAPAMIL HCL) 01/27/2005 5 - Intolerance Comments: passed out LISINOPRIL 03/11/2006 3 - Cough NIASPAN (NIACIN) 04/28/2009 2 - Rash Date Reviewed: 05/25/2017 Reviewed by: Roseanne ([facility]) HANNAH Sarabia - Fully Assessed Reason for Visit: Recheck [92] Primary Visit Diagnosis:Essential hypertension, benign [I10] Other Visit Diagnoses:Diabetic nephropathy associated with type 2 diabetes mellitus (HCC) [E11.21] Type 2 diabetes mellitus with stage 4 chronic kidney disease, without long-term current use of insulin (HCC) [E11.22, N18.4] 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] Chronic depression [F32.9] Order(s):allopurinol (ZYLOPRIM) 100 mg tabletTake 1 tablet by mouth once daily. For gout.Disp: 180 tabletRfl: 3 venlafaxine (EFFEXOR) 75 mg tabletTake 2 tablets by mouth once daily.Disp: 180 tabletRfl: 3 insulin glargine (LANTUS SOLOSTAR U-100 INSULIN) 100 unit/mL (3 mL) inpnInject 14 Units subcutaneously once daily.Disp: Rfl: HGB A1C [[id number]] Order #: [id number] FUTURE doxazosin (CARDURA) 4 mg tabletTake 1 tablet by mouth once daily.Disp: 90 tabletRfl: 3 Prescriptions as of 05/25/2017 Sig: ALLOPURINOL 100 MG TABLET Take 1 tablet by mouth once d* VENLAFAXINE 75 MG TABLET Take 2 tablets by mouth once * INSULIN GLARGINE (U-100) 100 * Inject 14 Units subcutaneousl* AMLODIPINE 5 MG TABLET Take 1 tablet by mouth once d* CLOTRIMAZOLE-BETAMETHASONE 1 * Apply 1 application to affect* METOPROLOL TARTRATE 50 MG TAB* Take 1 tablet by mouth twice * PEN NEEDLE, DIABETIC 29 GAUGE* Use one needle per dose. 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] INVALID FOR*04/22/2010 UNEQUAL LEG LENGTH [M21.70] INVALID FOR* Hyposmolality and/or hyponatremia [E87.1] INVALID FOR*07/09/2014 Anemia, unspecified [D64.9] INVALID FOR*07/09/2014 Coronary atherosclerosis [I25.10] INVALID FOR* Contact dermatitis and other eczema, due to uns*INVALID FOR*07/09/2014 Embolism and thrombosis of unspecified site (HC*INVALID FOR*07/09/2014 PULM EMBOLISM/INFARCT IATROGENIC [T81.718A, I26* 07/09/2014 DVT-ARM [I82.629] 07/09/2014 Abscess of intestine [K63.0] INVALID FOR*07/09/2014 Gout [M10.9] INVALID FOR* Biceps tendon rupture [S46.219A] INVALID FOR*07/09/2014 Benign prostatic hyperplasia with urinary obstr*INVALID FOR* Chronic depression [F32.9] INVALID FOR* Hyperkalemia [E87.5] INVALID FOR*05/25/2017 ASHD (arteriosclerotic heart disease) [I25.10] INVALID FOR* Hyperlipidemia LDL goal <100 [E78.5] INVALID FOR* 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] INVALID FOR* Encounter for screening for malignant neoplasm *INVALID FOR*01/22/2015 Type 2 diabetes mellitus with stage 4 chronic k*INVALID FOR* Other instructions from your clinician: PLAN: try taking lantus 14 units in morning and observe for change in itching same other medications HbA1c today return to office 6 mos and as needed follow up with specialists follow BP Ramo Moreira III MD Prescriptions ordered this encounter Disp Refills Start End ALLOPURINOL 100 MG TABLET 180 * 3 05/25/2017 Class: Med Update Route: ORAL Sig: Take 1 tablet by mouth once daily. For gout. VENLAFAXINE 75 MG TABLET 180 * 3 05/25/2017 Class: Med Update Route: ORAL Sig: Take 2 tablets by mouth once daily. INSULIN GLARGINE (U-100) 100 UNIT/ML* 05/25/2017 Class: Med Update Route: SUBCUTANEOUS Sig: Inject 14 Units subcutaneously once daily. DOXAZOSIN 4 MG TABLET 90 t* 3 05/25/2017 Route: ORAL Sig: Take 1 tablet by mouth once daily. Medications Discontinued During This Encounter hydrALAZINE (APRESOLINE) 10 mg tablet 30 t* 2 10/03/2016 05/25/2017 Route: ORAL Sig: Take 1 tablet by mouth three times daily. Disc: Discontinued by Patient allopurinol (ZYLOPRIM) 100 mg tablet 180 * 3 06/05/2015 05/25/2017 Route: ORAL Sig: Take 2 tablets by mouth once daily. For gout. Disc: Reason for discontinue is not on file. venlafaxine (EFFEXOR) 75 mg tablet 180 * 3 06/05/2015 05/25/2017 Route: ORAL Sig: Take 2 tablets by mouth once daily. Disc: Reason for discontinue is not on file. insulin glargine (LANTUS SOLOSTAR) 1* 5 Pen 11 10/01/2016 05/25/2017 Class: Med Update Route: SUBCUTANEOUS Sig: Inject 22 Units subcutaneously daily at bedtime. Disc: Reason for discontinue is not on file. doxazosin (CARDURA) 2 mg tablet 90 t* 3 01/22/2015 05/25/2017 Route: ORAL Sig: Take 1 tablet by mouth daily at bedtime. Disc: Dosage adjustment Encounter Status:Closed by RAMO MOREIRA III, MD on 05/25/17 PROTEIN+CREATININE Collected: Status: F Source: [facility] 05/09/2017 1:35 PM [facility] REPOSITORY TYPE CODE TESTS RESULT OUT OF RANGE REFERENCE UNITS LAB L501.1200 NO RANGE EST. mg/dL Normal UR CREAT 115.00 LAB L501.1930 <11.9 mg/dL High 187.1 PROTEIN,UR.R AN. LAB L501.1940 0-200 mg/g CRE High PROT:CRE 1627 RATIO Performed By: #### L501.0900 #### [facility] [place], [place], [id number] CBC-COMPLETE BLOOD CNT Collected: 05/09/2017 Status: F Source: [place] NO DIFF 1:35 PM [facility] REPOSITORY TYPE CODE TESTS RESULT OUT OF RANGE REFERENCE UNITS LAB L100.1000 4.4-11.0 K/mm3 Normal WBC 8.8 LAB L100.1200 4.6-6.2 M/mm3 Low RBC 3.82 LAB L100.1300 13.0-16.5 g/dl Low HGB 11.7 LAB L100.1400 40-54 % Low HCT 36.6 LAB L100.1500 80-94 fL High MCV 95.8 LAB L100.1600 27.0-32.0 pg Normal MCH 30.6 LAB L100.1700 32-36 g/gl Normal MCHC 32.0 LAB L100.1810 11.6-14.6 % Normal RDW CV 14.2 LAB L100.1820 35.1-43.9 fl High RDW SD 49.0 LAB L100.1900 150-450 K/mm3 Normal PLT 226 LAB L100.2000 6.2-12.0 fl Normal MPV 11.6 Performed By: #### L100.0500 #### [facility] [address] [facility] [place], [place], [address] RENAL PROFILE Collected: 05/09/2017 Status: F Source: [place] 1:35 PM [facility] REPOSITORY TYPE CODE TESTS RESULT OUT OF RANGE REFERENCE UNITS LAB L501.0100 74-106 mg/dL Normal GLU 100 Result Comment: Fasting Glucose result from 100 to 125 mg/dL suggests IMPAIRED HOMEOSTASIS per A.D.A. criteria. Please note revised GLUCOSE reference range effective 2017. LAB L501.1000 7-18 mg/dL High BUN 59 LAB L501.1100 0.70-1.30 mg/dL High CREAT,SERUM 3.30 Result Comment: The validity of the calculated GFR AND GFRAA in patients over 70 years has not been determined. Clinical correlation is essential. LAB L501.1110 >60 mL/min Low EST GFR 20 Result Comment: Non- GFR Calc LAB L501.1115 >60 mL/min Low EST GFR - AA 24 Result Comment: GFR Calc LAB L501.1300 10-20 RATIO Normal BUN/CRE 17.9 LAB L501.1800 3.2-5.0 g/dL Normal ALB 4.0 LAB L501.2200 8.5-10.1 mg/dL CA Normal 8.8 LAB L501.2300 2.5-4.9 mg/dL Normal PHOS 3.5 LAB L501.5300 136-145 mmol/L NA Normal 137 LAB L501.5600 3.5-5.1 mmol/L K Normal 5.1 LAB L501.5900 98-107 mmol/L CL Normal 105 LAB L501.6100 21.0-32.0 mmol/L Normal CO2 24.0 Performed By: #### L500.3600 #### [facility] [address] [place], [place], [address] PTHIN Collected: 05/09/2017 Status: F Source: [place] 1:35 PM [facility] REPOSITORY TYPE CODE TESTS RESULT OUT OF RANGE REFERENCE UNITS LAB L509.1000 18.4-80.1 pg/mL High PTHIN 127.4 Result Comment: Please Note: PTH INTACT METHOD AND REFERENCE RANGE CHANGE Effective 02/01/2017. Performed By: #### L509.1000 #### [facility] [address] [place], [address] CNPTOUTREACH Observed: 05/09/2017 Status: COMPLETED Source: [place] 12:00 AM [facility] REPOSITORY Patient Outreach ([facility]) ANGIE DIXON ([id number]) 1945 M Date Time Provider Department 05/09/17 RAMO MOREIRA III [facility] During your visit today, we recorded the following information about you: Allergies As of Date: 05/09/2017 Noted Allergy Reaction COVERA-HS (VERAPAMIL HCL) 01/27/2005 5 - Intolerance Comments: passed out LISINOPRIL 03/11/2006 3 - Cough NIASPAN (NIACIN) 04/28/2009 2 - Rash Date Reviewed: 09/28/2016 Reviewed by: Abby Cantu Torpedo Specialist - Fully Assessed Visit Diagnosis:Medication management [Z79.899] Order(s):[facility] [[facility]] Order #: [id number] FUTURE Prescriptions as of 05/09/2017 Sig: X HYDRALAZINE 10 MG TABLET Take 1 tablet by mouth three * X INSULIN GLARGINE (U-100) 100 * Inject 22 Units subcutaneousl* CLOTRIMAZOLE-BETAMETHASONE 1 * Apply 1 application to affect* X AMLODIPINE 5 MG TABLET Take 1 tablet by mouth once d* Patient not taking: Reported on 09/18/2017 X METOPROLOL TARTRATE 50 MG TAB* Take 1 tablet by mouth twice * Patient not taking: Reported on 09/18/2017 X ALLOPURINOL 100 MG TABLET Take 2 tablets by mouth once * X VENLAFAXINE 75 MG TABLET Take 2 tablets by mouth once * X DOXAZOSIN 2 MG TABLET Take 1 tablet by mouth daily * PEN NEEDLE, DIABETIC 29 GAUGE* Use one needle per dose. 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] INVALID FOR*04/22/2010 UNEQUAL LEG LENGTH [M21.70] INVALID FOR* Hyposmolality and/or hyponatremia [E87.1] INVALID FOR*07/09/2014 Anemia, unspecified [D64.9] INVALID FOR*07/09/2014 Coronary atherosclerosis [I25.10] INVALID FOR* Contact dermatitis and other eczema, due to uns*INVALID FOR*07/09/2014 Embolism and thrombosis of unspecified site (HC*INVALID FOR*07/09/2014 PULM EMBOLISM/INFARCT IATROGENIC [T81.718A, I26* 07/09/2014 DVT-ARM [I82.629] 07/09/2014 Abscess of intestine [K63.0] INVALID FOR*07/09/2014 Gout [M10.9] INVALID FOR* Biceps tendon rupture [S46.219A] INVALID FOR*07/09/2014 Benign prostatic hyperplasia with urinary obstr*INVALID FOR* Chronic depression [F32.9] INVALID FOR* Hyperkalemia [E87.5] INVALID FOR* ASHD (arteriosclerotic heart disease) [I25.10] INVALID FOR* Hyperlipidemia LDL goal <100 [E78.5] INVALID FOR* 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] INVALID FOR* Encounter for screening for malignant neoplasm *INVALID FOR*01/22/2015 Type 2 diabetes mellitus with stage 4 chronic k*INVALID FOR* Encounter Status:Closed by WALTER STEIN on 11/24/17 PROGRESS Observed: 04/04/2017 Status: COMPLETED Source: [place] 1:21 PM [facility] [place] REPOSITORY HNO ID: [id number] Author: Alejandra Garza Psr Service: (none) Author Type: (none) Type: Progress Notes Filed: 04/05/2017 12:57 PM Note Text: I have attempted to contact this patient by phone to return their call, schedule an appointment, discuss lab results, etc. Left message to call back. Patient is calling in on 04/04/2017 stating that he is currently in [place] and will not return until late April. He was made aware of his upcoming appt with Bipin Moreira III on 05/25/2017 and the labs that are ordered in the computer. He states that he will complete these labs one week prior to his appt. Patient states that he has appts for eye exams, etc. PROGRESS Observed: 04/04/2017 Status: COMPLETED Source: [place] 1:13 PM [facility] REPOSITORY [facility] ID: [id number] Author: Luann Dietz) Julio C Service: (none) Author Type: Trade Manager Type: Progress Notes Filed: 04/05/2017 12:57 PM Note Text: PHMA TEAMLET DOCUMENTATION Provider Action/FYI: pt has appointment needs diabetic foot exam and eye exam, labs orders, needs Prevnar 13 PSR Action/FYI: Teamlet has identified patient by name and date of . Team: Dr. Angel Moreira III, MD, TAQUERIA Gutierrez, Luann Hoyos MA, Mony Dimas LPN, Sarah Sarabia CMA, Uma Sofia PSR, Uma Medina, RN,BSN, CPHQ, CCM, ? Last Office Visit:Visit date not found ? Next Office Visit: 05/25/2017 ? Last BP/Labs: Blood Pressure: Last 3 Encounter BP Readings: Date: BP: 09/28/2016 160/82 09/12/2016 170/94 07/28/2016 144/82 Lipids: Cholesterol, Total (mg/dL) Date Value 09/12/2016 181 06/05/2015 181 HDL Cholesterol (mg/dL) Date Value 09/12/2016 47 06/05/2015 47 LDL Cholesterol (mg/dL) Date Value 09/12/2016 98 06/05/2015 103 Triglyceride (mg/dL) Date Value 09/12/2016 179 06/05/2015 156 HGB A1C: Lab Results Component Value Date HBA1C 8.0 09/28/2016 HBA1C 7.2 12/01/2015 HBA1C 7.4 06/05/2015 HBA1C 13.0 10/04/2014 TSH: No results found for: TSH) Care Gap: DM - Needs dilated eye exam - HM overdue Plan: ? Confirm PCP / Statu ? Type of appointment needed: ? Consultation Appointments: { ? Labs, HM and Immunization: Labs: CMP HGB A1C Diabetic Eye Exam Diabetic Foot Exam Hep C screening Luann Hoyos MA CNPTOUTREACH Observed: 04/04/2017 Status: COMPLETED Source: [place] 12:00 AM [facility] REPOSITORY Patient Outreach ([facility]) ANGIE DIXON ([id number]) 1945 M Date Time Provider Department 04/04/17 LUANN HOYOS (HANNAH) FAMPWS During your visit today, we recorded the following information about you: Luann Hoyos MA 04/05/2017 12:57 PM Signed PHMA TEAMLET DOCUMENTATION Provider Action/FYI: pt has appointment needs diabetic foot exam and eye exam, labs orders, needs Prevnar 13 PSR Action/FYI: Teamlet has identified patient by name and date of . Team: Dr. Angel Moreira III, MD, TAQUERIA Gutierrez, Luann Hoyos MA, Mony Dimas LPN, Sarah Sarabia CMA, Uma Sofia PSR, Uma Medina, RN,BSN, CPHQ, CCM, ? Last Office Visit:Visit date not found ? Next Office Visit: 05/25/2017 ? Last BP/Labs: Blood Pressure: Last 3 Encounter BP Readings: Date: BP: 09/28/2016 160/82 09/12/2016 170/94 07/28/2016 144/82 Lipids: Cholesterol, Total (mg/dL) Date Value 09/12/2016 181 06/05/2015 181 HDL Cholesterol (mg/dL) Date Value 09/12/2016 47 06/05/2015 47 LDL Cholesterol (mg/dL) Date Value 09/12/2016 98 06/05/2015 103 Triglyceride (mg/dL) Date Value 09/12/2016 179 06/05/2015 156 HGB A1C: Lab Results Component Value Date HBA1C 8.0 09/28/2016 HBA1C 7.2 12/01/2015 HBA1C 7.4 06/05/2015 HBA1C 13.0 10/04/2014 TSH: No results found for: TSH) Care Gap: DM - Needs dilated eye exam - HM overdue Plan: ? Confirm PCP / Statu ? Type of appointment needed: ? Consultation Appointments: { ? Labs, HM and Immunization: Labs: CMP HGB A1C Diabetic Eye Exam Diabetic Foot Exam Hep C screening HANNAH Law Psr 04/05/2017 12:57 PM Signed I have attempted to contact this patient by phone to return their call, schedule an appointment, discuss lab results, etc. Left message to call back. Patient is calling in on 04/04/2017 stating that he is currently in [place] and will not return until late April. He was made aware of his upcoming appt with Bipin Powersl III on 05/25/2017 and the labs that are ordered in the computer. He states that he will complete these labs one week prior to his appt. Patient states that he has appts for eye exams, etc. Allergies As of Date: 04/04/2017 Noted Allergy Reaction COVERA-HS (VERAPAMIL HCL) 01/27/2005 5 - Intolerance Comments: passed out LISINOPRIL 03/11/2006 3 - Cough NIASPAN (NIACIN) 04/28/2009 2 - Rash Date Reviewed: 09/28/2016 Reviewed by: Abby Cantu Torpedo Specialist - Fully Assessed Reason for Visit: PHMA/Care Gap Outreach [[id number]] Prescriptions as of 04/04/2017 Sig: HYDRALAZINE 10 MG TABLET Take 1 tablet by mouth three * INSULIN GLARGINE (U-100) 100 * Inject 22 Units subcutaneousl* AMLODIPINE 5 MG TABLET Take 1 tablet by mouth once d* CLOTRIMAZOLE-BETAMETHASONE 1 * Apply 1 application to affect* METOPROLOL TARTRATE 50 MG TAB* Take 1 tablet by mouth twice * ALLOPURINOL 100 MG TABLET Take 2 tablets by mouth once * VENLAFAXINE 75 MG TABLET Take 2 tablets by mouth once * DOXAZOSIN 2 MG TABLET Take 1 tablet by mouth daily * PEN NEEDLE, DIABETIC 29 GAUGE* Use one needle per dose. 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] INVALID FOR* Hyposmolality and/or hyponatremia [E87.1] INVALID FOR*07/09/2014 Anemia, unspecified [D64.9] INVALID FOR*07/09/2014 Coronary atherosclerosis [I25.10] INVALID FOR* Contact dermatitis and other eczema, due to uns*INVALID FOR*07/09/2014 Embolism and thrombosis of unspecified site (HC*INVALID FOR*07/09/2014 PULM EMBOLISM/INFARCT IATROGENIC [T81.718A, I26* 07/09/2014 DVT-ARM [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] 07/09/2014 Abscess of intestine [K63.0] INVALID FOR*07/09/2014 Gout [M10.9] INVALID FOR* Biceps tendon rupture [S46.119A] INVALID FOR*07/09/2014 Benign prostatic hyperplasia with urinary obstr*INVALID FOR* Chronic depression [F32.9] INVALID FOR* Hyperkalemia [E87.5] INVALID FOR* ASHD (arteriosclerotic heart disease) [I25.10] INVALID FOR* Hyperlipidemia LDL goal <100 [E78.5] INVALID FOR* 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 The patient will report to the lab prior to the visit. I have pended the following lab orders: BMP HgbA1c Hep C screening PHMA Documentation 03/24/2017 Opts out of [facility] No Appointments Scheduled Scheduled PCP Appt DM2 with No SYLVIA Record Requested DM2 with No Urine Alb Lab Ordered DM2 with No DFE Record Requested Luann Hoyos MA PROGRESS Observed: 03/23/2017 Status: COMPLETED Source: [place] 2:53 PM [facility] REPOSITORY HNO ID: [id number] Author: May Annie [facility] Service: (none) Author Type: (none) Type: Progress Notes Filed: 03/24/2017 3:23 PM Note Text: Scheduled for May as patient in in [place] currently PROGRESS Observed: 03/20/2017 Status: COMPLETED Source: [place] 10:03 PM [facility] REPOSITORY HNO ID: [id number] Author: Ramo Moreira III Service: (none) Author Type: Physician Type: Progress Notes Filed: 03/24/2017 3:23 PM Note Text: Orders have been filed. 20 minute appointment would be fine. Ramo Moreira III, MD, FAAFP PROGRESS Observed: 03/20/2017 Status: COMPLETED Source: [place] 3:13 PM [facility] REPOSITORY HNO ID: [id number] Author: Luann Hoyos Service: (none) Author Type: Trade Manager Type: Progress Notes Filed: 03/24/2017 3:23 PM Note Text: PHMA TEAMLET DOCUMENTATION Provider Action/FYI: patient needs appointment, labs, eye exam, foot exam Pnemovax, Adult Prenavar PSR Action/FYI: Teamlet has identified patient by name and date of . Team Dr. Angel Moreira III, MD, TAQUERIA Gutierrez, Luann Hoyos MA, Mony Dimas LPN, Sarah Sarabia CMA, Kristie Sofia PSR, Uma Medina RN,BSN, CPHQ, CC ? Last Office Visit:10/03/2016 ? Next Office Visit: Visit date not found ? Last BP/Labs: Blood Pressure: Last 3 Encounter BP Readings: Date: BP: 09/28/2016 160/82 09/12/2016 170/94 07/28/2016 144/82 Lipids: Cholesterol, Total (mg/dL) Date Value 09/12/2016 181 06/05/2015 181 HDL Cholesterol (mg/dL) Date Value 09/12/2016 47 06/05/2015 47 LDL Cholesterol (mg/dL) Date Value 09/12/2016 98 06/05/2015 103 Triglyceride (mg/dL) Date Value 09/12/2016 179 06/05/2015 156 HGB A1C: Lab Results Component Value Date HBA1C 8.0 09/28/2016 HBA1C 7.2 12/01/2015 HBA1C 7.4 06/05/2015 HBA1C 13.0 10/04/2014 TSH: No results found for: TSH) Care Gap: DM - Needs dilated eye exam - HM overdue HTN - Last BP NOT under 140/90 Plan: ? Confirm PCP / Status ? Type of appointment needed: ? Consultation Appointments: 6} ? Labs, HM and Immunization: Diabetic Eye Exam Diabetic Foot Exam HgbA1c Hep C Screening Luann Hoyos MA CNPTOUTREACH Observed: 03/20/2017 Status: COMPLETED Source: [place] 12:00 AM [facility] REPOSITORY Patient Outreach (FAMP[facility]) ANGIE DIXON ([id number]) 1945 M Date Time Provider Department 03/20/17 LUANN HOYOS) ELGINPWS During your visit today, we recorded the following information about you: Luann Hoyos MA 03/24/2017 3:23 PM Signed PHMA TEAMLET DOCUMENTATION Provider Action/FYI: patient needs appointment, labs, eye exam, foot exam Pnemovax, Adult Prenavar PSR Action/FYI: Teamlet has identified patient by name and date of . Team Dr. Angel Moreira III,, TAQUERIA Gutierrez, Luann Hoyos MA, Mony Dimas LPN, Sarah Sarabia CMA, Kristie Sofia PSR, Uma Medina, RN,BSN, CPHQ, CC ? Last Office Visit:10/03/2016 ? Next Office Visit: Visit date not found ? Last BP/Labs: Blood Pressure: Last 3 Encounter BP Readings: Date: BP: 09/28/2016 160/82 09/12/2016 170/94 07/28/2016 144/82 Lipids: Cholesterol, Total (mg/dL) Date Value 09/12/2016 181 06/05/2015 181 HDL Cholesterol (mg/dL) Date Value 09/12/2016 47 06/05/2015 47 LDL Cholesterol (mg/dL) Date Value 09/12/2016 98 06/05/2015 103 Triglyceride (mg/dL) Date Value 09/12/2016 179 06/05/2015 156 HGB A1C: Lab Results Component Value Date HBA1C 8.0 09/28/2016 HBA1C 7.2 12/01/2015 HBA1C 7.4 06/05/2015 HBA1C 13.0 10/04/2014 TSH: No results found for: TSH) Care Gap: DM - Needs dilated eye exam - HM overdue HTN - Last BP NOT under 140/90 Plan: ? Confirm PCP / Status ? Type of appointment needed: ? Consultation Appointments: 6} ? Labs, HM and Immunization: Diabetic Eye Exam Diabetic Foot Exam HgbA1c Hep C Screening Luann L HANNAH Hoyos III MD 03/24/2017 3:23 PM Signed Orders have been filed. 20 minute appointment would be fine. Ramo Moreira III, , FAAFP May Annie PAC 03/24/2017 3:23 PM Signed Scheduled for May as patient in in [place] currently Luann Hoyos MA 03/24/2017 3:23 PM Signed The patient has been identified by name and date of : YES I have scheduled the patient for an appointment on 05/25/2017. The patient will report to the lab prior to the visit. I have pended the following lab orders: BMP HgbA1c Hep C screening PHMA Documentation 03/24/2017 Opts out of [facility] No Appointments Scheduled Scheduled PCP Appt DM2 with No SYLVIA Record Requested DM2 with No Urine Alb Lab Ordered DM2 with No DFE Record Requested Luann Hoyos MA Allergies As of Date: 03/20/2017 Noted Allergy Reaction COVERA-HS (VERAPAMIL HCL) 01/27/2005 5 - Intolerance Comments: passed out LISINOPRIL 03/11/2006 3 - Cough NIASPAN (NIACIN) 04/28/2009 2 - Rash Date Reviewed: 09/28/2016 Reviewed by: Abby Cantu Torpedo Specialist - Fully Assessed Reason for Visit: PHMA/Care Gap Outreach [[id number]] Primary Visit Diagnosis:Need for hepatitis C screening test [Z11.59] Other Visit Diagnosis:Type 2 diabetes mellitus with stage 4 chronic kidney disease, without long-term current use of insulin (HCC) [E11.22, N18.4] Order(s):HEP C AB IA W/CONF SCRN [[id number]] Order #: [id number] FUTURE HGB A1C [[id number]] Order #: [id number] FUTURE Prescriptions as of 03/20/2017 Sig: HYDRALAZINE 10 MG TABLET Take 1 tablet by mouth three * INSULIN GLARGINE 100 UNIT/ML * Inject 22 Units subcutaneousl* AMLODIPINE 5 MG TABLET Take 1 tablet by mouth once d* CLOTRIMAZOLE-BETAMETHASONE 1 * Apply 1 application to affect* METOPROLOL TARTRATE 50 MG TAB* Take 1 tablet by mouth twice * ALLOPURINOL 100 MG TABLET Take 2 tablets by mouth once * VENLAFAXINE 75 MG TABLET Take 2 tablets by mouth once * DOXAZOSIN 2 MG TABLET Take 1 tablet by mouth daily * PEN NEEDLE, DIABETIC 29 GAUGE* Use one needle per dose. 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] INVALID FOR* Hyposmolality and/or hyponatremia [E87.1] INVALID FOR*07/09/2014 Anemia, unspecified [D64.9] INVALID FOR*07/09/2014 Coronary atherosclerosis [I25.10] INVALID FOR* Contact dermatitis and other eczema, due to uns*INVALID FOR*07/09/2014 Embolism and thrombosis of unspecified site (HC*INVALID FOR*07/09/2014 PULM EMBOLISM/INFARCT IATROGENIC [T81.718A, I26* 07/09/2014 DVT-ARM [I82.629] 07/09/2014 Abscess of intestine [K63.0] INVALID FOR*07/09/2014 Gout [M10.9] INVALID FOR* Biceps tendon rupture [S46.119A] INVALID FOR*07/09/2014 Benign prostatic hyperplasia with urinary obstr*INVALID FOR* Chronic depression [F32.9] INVALID FOR* Hyperkalemia [E87.5] INVALID FOR* ASHD (arteriosclerotic heart disease) [I25.10] INVALID FOR* Hyperlipidemia LDL goal <100 [E78.5] INVALID FOR* 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] INVALID FOR* Encounter for screening for malignant neoplasm *INVALID FOR*01/22/2015 Type 2 diabetes mellitus with stage 4 chronic k*INVALID FOR* Encounter Status:Closed by LUANN HOYOS on 03/24/17 ALLERGIES ALLERGIES DATE TYPE / CODE NAME / CODE REACTION SEVERITY SOURCE Drug atorvastatin Pain in joints Unknown [place] 8 Allergy/095335821( calcium/M95572846 [facility] SN[facility]) 2(RXNORM) Hospital Repository Drug Niacin Pain in joints Unknown [place] 8 Allergy/683945800( Preparations/F[address]) 474537(RXNORM) Hospital Repository Drug lisinopril/R99704 Other Unknown [place] 8 Allergy/207703695( 0658(RXNORM) [facility] SN[facility]) Hospital Repository Drug verapamil/L660466 passes out Unknown [place] 8 Allergy/267662787( 515(RXNORM) [facility] SN[facility]) Hospital Repository DRUG ATORVASTATIN INTOLERANCE Fernando 8 INGREDI/479437240( CALCIUM Clinic Main SNOMED CT) Center Repository Miscellaneous Cholesterol Meds Other Unknown [place] 8 Allergy/622056006( Community SNOM[facility]) Hospital Repository DRUG NIACIN RASH [place] 0 INGREDI/970687194( Clinic Main SNOMED CT) Center Repository DRUG LISINOPRIL COUGH Fernando 7 INGREDI/852020702( Clinic Main SNOMED CT) Center Repository DRUG VERAPAMIL HCL INTOLERANCE Fernando 5 INGREDI/122692212( Clinic Main SNOMED CT) Center Repository NG/478233218(SNOME ATORVASTATIN [facility] D [facility]) CALCIUM [facility] Repository NG/425749300(SNOME VERAPAMIL HCL [facility] D CT) Health System Repository NG/642612798(SNOME LISINOPRIL [facility] D CT) Health System Repository NG/626066853(SNOME NIACIN [facility] D CT) Health System Repository ENCOUNTERS ENCOUNTERS ADMIT/DISCHARGE ACCOUNT NUMBER ADMITTING ENCOUNTER LOCATION SOURCE CLASS 01/30/2018 [id number] [facility] ding:LAB.FUT Repository URE 01/24/2018 [id number] [facility] ding:POLAB3 Repository 01/15/2018 [id number] [facility] ding:LAB.FUT Repository URE 12/15/2017 [id number] [facility] ding:LAB.FUT Repository URE 12/11/2017/12/13/19 [id number] Ambulatory [address] Main Center Repository 11/27/2017/11/29/19 [id number] Ambulatory [address] Repository 11/27/2017 [id number] [facility] URE 11/23/2017/11/24/19 [id number] Ambulatory BMSBuilding: [place] 18 [facility] Repository 11/23/2017 [id number] Ambulatory [facility] ding:LAB.FUT Repository URE 11/23/2017/11/24/19 [id number] Ambulatory [address] Repository 11/17/2017/11/18/19 [id number] Ambulatory BMSBuilding: [place] 18 [facility] Repository 11/08/2017/11/11/19 [id number] HARRISON, Inpatient [address] Repository 11/08/2017/11/11/19 [id number] HARRISON, Inpatient [address] MEDICAL Repository CENTERBuildi ng:CVICRoom: 3232Bed: 01 11/07/2017/11/09/19 [id number] Carmen Hogan Inpatient [place] ding:ICURoom Repository : [id number]: 1 11/07/2017 [id number] Carmen Hgoan Ambulatory BMSBuilding: [place] BMS.[facility] Repository 11/07/2017 [id number] WhiteCarmen Ambulatory BMSBuilding: [place] BMS.[facility] Repository 11/07/2017/11/09/19 [id number] Ambulatory BMSBuilding: [place] 18 [facility] Repository 11/07/2017/11/09/19 [id number] Ambulatory BMSBuilding: [place] 18 [facility] Repository 10/13/2017/10/14/19 [id number] Ambulatory BMSBuilding: [place] 18 [facility]MS.[facility] Repository 10/06/2017/10/07/19 [id number] Ambulatory BMSBuilding: [place] 18 [facility] Repository 10/06/2017 [id number] Ambulatory BMSBuilding: [place] BMS.CF.[facility] Repository 10/05/2017/10/07/19 [id number] Ambulatory [address] ding:CLSP Repository 10/05/2017 [id number] Ambulatory BMSBuilding: [place] [facility]MS.[facility] Repository 10/02/2017 [id number] Ambulatory [facility] ding:LAB.FUT Repository URE 10/02/2017 [id number] Ambulatory [facility] ding:LAB.FUT Repository URE 09/29/2017/09/30/19 [id number] Ambulatory BMSBuilding: [place] 18 [facility]MS.[facility] Repository 09/22/2017 [id number] Ambulatory [facility] ding:LAB Repository 09/22/2017/09/23/19 [id number] Ambulatory BMSBuilding: [place] 18 [facility] Repository 09/18/2017/09/20/19 [id number] Ambulatory [address] Repository 09/14/2017 [id number] Ambulatory [facility] ding:LAB.FUT Repository URE 09/05/2017 [id number] Ambulatory BMSBuilding: [place] BMS.[facility] Repository 09/05/2017/09/09/19 [id number] Pablo Burrell Inpatient [address] ding:PCURoom Repository : [id number]: 1 09/05/2017 [id number] Pablo Burrell Ambulatory BMSBuilding: [place] BMS.CF.[facility] Repository 09/05/2017 [id number] Pablo Burrell Ambulatory BMSBuilding: [place] BMS.[facility] Repository 09/05/2017 [id number] Pablo Burrell Ambulatory BMSBuilding: [place] BMS.[facility] Repository 09/05/2017 [id number] Pablo Burrell Ambulatory BMSBuilding: [place] BMS..[facility] Repository 09/05/2017 [id number] Pablo Burrell Ambulatory BMSBuilding: [place] BMS.[facility] Repository 09/05/2017 [id number] Pablo Burrell [facility] [place] [facility] 09/05/2017/09/09/19 [id number] Ambulatory BMSBuilding: [place] 18 [facility] Repository 09/04/2017 [id number] [facility] ding:LAB Repository 08/31/2017/09/02/19 [id number] Agyepong, Ambulatory [address] ding:PCURoom Repository : [id number]: 1 08/31/2017 [id number] Agyepong, Ambulatory BMSBuilding: [place] Ezra BMS.[facility] Repository 08/31/2017 [id number] Agyepong, Ambulatory BMSBuilding: [place] Ezra BMS.[facility] Repository 08/31/2017 [id number] Agyepong, Ambulatory BMSBuilding: [place] Ezra BMS.[facility] Repository 08/31/2017 [id number] Agyepong, Ambulatory BMSBuilding: [place] Ezra BMS.[facility] Repository 08/17/2017 [id number] [facility] ding:LAB.FUT Repository URE 05/25/2017/05/26/19 [id number] Ambulatory [address] Repository 05/25/2017/05/27/[id number] Repository 05/22/2017 [id number] [facility] ding:LAB.FUT Repository URE 05/09/2017 [id number] [facility] ding:LAB.FUT Repository URE PAYERS PAYERS ENCOUNTER GUARANTOR PAYER SUBSCRIBER SOURCE 01/30/2018 ANGIE D Primary ANGIE D [place] [id number] TR Insurance:GAYLE KING: [place], MEDICAREPolicy [id number] [address]Eex: Number: Repository [id number] (HP) Date:9239-07-90LD [address] [place] [address]AZ: 01/30/2018 Secondary NOT GIVENUNK [place] Insurance:SELF PAY [facility] Number: Effective Repository Date:2018-01-30 01/24/2018 ANGIE D Primary ANGIE D [place] [id number] TR Insurance:HUMANA GOLD GREENDOB: Community [place], MEDICAREPolicy [id number] Corners [facility] [address]Yyy: Number: Repository [id number] (HP) Date:0340-65-64XH [address] [address]GC: 01/24/2018 Secondary NOT GIVENUNK [place] Insurance:SELF PAY [facility] Number: Effective Repository Date:2017-12-07 01/15/2018 ANGIE D Primary ANGIE D [place] [id number] TR Insurance:HUMANA GOLD GREENDOB: Community [place], MEDICAREPolicy [id number] Corners Regional Health Center [address]Zag: Number: Repository [id number] (HP) Date:7782-52-39[place] [address]WP: 01/15/2018 Secondary NOT GIVENUNK [place] Insurance:SELF PAY [facility] Number: Effective Repository Date:2017-12-07 12/15/2017 ANGIE D Primary ANGIE D [place] [id number] TR Insurance:HUMANA GOLD GREENDOB: Community [place], MEDICAREPolicy [id number] [address]Iih: Number: Repository [id number] (HP) Date:0197-31-96KI [address] [address]YG: 12/15/2017 Secondary NOT GIVENUNK [place] Insurance:SELF PAY [facility] Number: Effective Repository Date:2017-12-13 11/27/2017 ANGIE D Primary ANGIE D [place] [id number] TR Insurance:HUMANA GOLD GREENDOB: Community [place], MEDICAREPolicy [id number] [place] [address]Buk: Number: Repository [id number] (HP) Date:0138-62-69OL [place] [address]WP: 11/27/2017 Secondary NOT GIVENUNK [place] Insurance:SELF PAY [facility] Number: Effective Repository Date:2017-11-27 11/23/2017 ANGIE D Primary ANGIE D [place] [id number] TR Insurance:HUMANA GOLD GREENDOB: Community [place], MEDICAREPolicy [id number] Corners Regional Health Center [address]Obe: Number: Repository [id number] (HP) Date:9800-38-30QN [address] [address]UY: 11/23/2017 Secondary NOT GIVENUNK [place] Insurance:SELF PAY [facility] Number: Effective Repository Date:2017-11-23 11/23/2017 ANGIE D Primary ANGIE D [place] [id number] TR Insurance:HUMANA GOLD GREENDOB: Community [place], MEDICAREPolicy [id number] [id number]: Number: Repository [id number] (HP) Date:2591-57-98KL [address] [address]QJ: 11/23/2017 Secondary NOT GIVENUNK [place] Insurance:SELF PAY [facility] Number: Effective Repository Date:2017-09-21 11/17/2017 ANGIE D Primary ANGIE D [place] [id number] TR Insurance:HUMANA GOLD GREENDOB: Community [place], MEDICAREPolicy [id number] Corners Regional Health Center [address]Dqb: Number: Repository [id number] (HP) Date:2391-39-09JA [address] [address]AG: 11/17/2017 Secondary NOT GIVENUNK [place] Insurance:SELF PAY [facility] Number: Effective Repository Date:2017-11-17 11/08/2017 ANGIE D Primary ANGIE D [facility] GREENDOB: Insurance:HUMANA GREENDOB: Health System MEDICARE PPOPolicy [id number] Repository [facility] [address] Number: [address] [place] [address] [id number] [place] [address]Mfq: Date: (HP) 11/07/2017 ANGIE D Primary ANGIE D [place] [id number] TR Insurance:HUMANA GOLD GREENDOB: Community [place], MEDICAREPolicy [id number] Corners Regional Health Center [address]Pqv: Number: Repository [id number] (HP) Date:8490-20-28MN [address] [place] [address]SG: 11/07/2017 Secondary NOT GIVENUNK [place] Insurance:SELF PAY [facility] Number: Effective Repository Date:2017-11-07 11/07/2017 ANGIE D Primary ANGIE D [place] [id number] TR Insurance:HUMANA GOLD GREENDOB: Community [place], MEDICAREPolicy [id number] Corners Regional Health Center [address]Eba: Number: Repository [id number] (HP) Date:6969-15-40KS [address] [address]PD: 11/07/2017 Secondary NOT GIVENUNK [place] Insurance:SELF PAY [facility] Number: Effective Repository Date:2017-11-07 11/07/2017 ANGIE D Primary ANGIE D [place] [id number] TR Insurance:HUMANA GOLD GREENDOB: Community [place], MEDICAREPolicy [id number] Corners Regional Health Center [address]Rqg: Number: Repository [id number] (HP) Date:7329-80-37GV [address] [address]AQ: 11/07/2017 Secondary NOT GIVENUNK [place] Insurance:SELF PAY [facility] Number: Effective Repository Date:2017-11-07 11/07/2017 ANGIE D Primary ANGIE D [place] [id number] TR Insurance:HUMANA GOLD GREENDOB: Community [place], MEDICAREPolicy [id number] [place] [address]Uzd: Number: Repository [id number] (HP) Date:0176-41-45NU [address] [place] [address]SU: 11/07/2017 Secondary NOT GIVENUNK [place] Insurance:SELF PAY [facility] Number: Effective Repository Date:2017-11-07 11/07/2017 ANGIE D Primary ANGIE D [place] [id number] TR Insurance:HUMANA GOLD GREENDOB: Community [place], MEDICAREPolicy [id number] [place] [address]Ufq: Number: Repository [id number] (HP) Date:2618-57-81JC [address] [place], [place] [address]WP: 11/07/2017 Secondary NOT GIVENUNK [place] Insurance:SELF PAY [facility] Number: Effective Repository Date:2017-11-07 10/13/2017 ANGIE D Primary ANGIE D [place] [id number] TR Insurance:HUMANA GOLD GREENDOB: Community [address], MEDICAREPolicy [id number] [place] [address]Vis: Number: Repository [id number] (HP) Date:9085-67-35OU [address] [place] [address]ON: 10/13/2017 Secondary NOT GIVENUNK [place] Insurance:SELF PAY [facility] Number: Effective Repository Date:2017-10-13 10/06/2017 ANGIE D Primary ANGIE D [place] [id number] TR Insurance:HUMANA GOLD GREENDOB: Community [address], MEDICAREPolicy [id number] [place] [address]Gxl: Number: Repository [id number] (HP) Date:9294-55-13GM [address] [place] [address]TH: 10/06/2017 Secondary NOT GIVENUNK [place] Insurance:SELF PAY [facility] Number: Effective Repository Date:2017-10-11 10/06/2017 ANGIE D Primary ANGIE D [place] [id number] TR Insurance:HUMANA GOLD GREENDOB: Community [place], MEDICAREPolicy [id number] [address]Kos: Number: Repository [id number] (HP) Date:1664-87-56[place] [address]WP: 10/06/2017 Secondary NOT GIVENUNK [place] Insurance:SELF PAY [facility] Number: Effective Repository Date:2017-10-06 10/05/2017 ANGIE D Primary ANGIE D [place] [id number] TR Insurance:HUMANA GOLD GREENDOB: Community [address], MEDICAREPolicy [id number] [address]Srt: Number: Repository [id number] (HP) Date:2405-11-85OJ [address]46[address]WP: 10/05/2017 Secondary NOT GIVENUNK [place] Insurance:SELF PAY [facility] Number: Effective Repository Date:2017-09-22 10/05/2017 ANGIE D Primary ANGIE D [place] [id number] TR Insurance:HUMANA GOLD GREENDOB: Community [address], MEDICAREPolicy [id number] [place] [address]Qji: Number: Repository [id number] (HP) Date:8096-73-81FI [place] [address]WP: 10/05/2017 Secondary NOT GIVENUNK [place] Insurance:SELF PAY [facility] Number: Effective Repository Date:2017-10-05 10/02/2017 ANGIE D Primary ANGIE D [place] [id number] TR Insurance:HUMANA GOLD GREENDOB: Community [place], MEDICAREPolicy [id number] [place] [address]Jlh: Number: Repository [id number] (HP) Date:4164-28-36CU [address] [place] [address]DD: 10/02/2017 Secondary NOT GIVENUNK [place] Insurance:SELF PAY [facility] Number: Effective Repository Date:2017-09-07 10/02/2017 ANGIE D Primary ANGIE D [place] [id number] TR Insurance:HUMANA GOLD GREENDOB: Community [place], MEDICAREPolicy [id number] [address]Tel: Number: Repository [id number] (HP) Date:3522-30-10EG [address] [address]QC: 10/02/2017 Secondary NOT GIVENUNK [place] Insurance:SELF PAY [facility] Number: Effective Repository Date:2017-10-02 09/29/2017 ANGIE D Primary ANGIE D [place] [id number] TR Insurance:HUMANA GOLD GREENDOB: Community [address], MEDICAREPolicy [id number] [place] [address]Tel: Number: Repository [id number] (HP) Date:0046-03-28FJ [address] [address]UO: 09/29/2017 Secondary NOT GIVENUNK [place] Insurance:SELF PAY [facility] Number: Effective Repository Date:2017-09-29 09/22/2017 ANGIE D Primary ANGIE D [place] [id number] TR Insurance:HUMANA GOLD GREENDOB: Community [place], MEDICAREPolicy [id number] [place] [address]Tel: Number: Repository [id number] (HP) Date:9188-43-25VX [address] [address]WW: 09/22/2017 Secondary NOT GIVENUNK [place] Insurance:SELF PAY [facility] Number: Effective Repository Date:2017-09-22 09/22/2017 ANGIE D Primary ANGIE D [place] [id number] Insurance:HUMANA GOLD GREENDOB: Community [address] MEDICAREPolicy [id number], Number: Repository [place] [address]Pmj: [id number] Date:9561-40-66RP [address] () [address] [place] [address]DP: 09/22/2017 Secondary NOT GIVENUNK [place] Insurance:SELF PAY [facility] Number: Effective Repository Date:2017-09-22 09/14/2017 ANGIE D Primary ANGIE D [place] [id number] TR Insurance:HUMANA GOLD GREENDOB: Community [address], MEDICAREPolicy [id number] [place] [address]Xyc: Number: Repository [id number] (HP) Date:4397-19-48KB [address] [place] [address]NU: 09/14/2017 Secondary NOT GIVENUNK [place] Insurance:SELF PAY [facility] Number: Effective Repository Date:2017-09-13 09/05/2017 ANGIE D Primary ANGIE D [place] [id number] TR Insurance:HUMANA GOLD GREENDOB: Community [address], MEDICAREPolicy [id number] [place] [address]Bof: Number: Repository [id number] (HP) Date:3409-52-87YD [address] [place] [address]WZ: 09/05/2017 Secondary NOT GIVENUNK [place] Insurance:SELF PAY [facility] Number: Effective Repository Date:2017-09-05 09/05/2017 ANGIE D Primary ANGIE D [place] [id number] TR Insurance:HUMANA GOLD GREENDOB: Community [address], MEDICAREPolicy [id number] [place] [address]Udn: Number: Repository [id number] (HP) Date:4902-09-58XT [address] [place] [address]TN: 09/05/2017 Secondary NOT GIVENUNK [place] Insurance:SELF PAY [facility] Number: Effective Repository Date:2017-09-04 09/05/2017 ANGIE D Primary ANGIE D [place] [id number] TR Insurance:HUMANA GOLD GREENDOB: Community [place], MEDICAREPolicy [id number] Corners Regional [facility] Center [address]Ywe: Number: Repository [id number] (HP) Date:8082-63-75[place] [address]WP: 09/05/2017 Secondary NOT GIVENUNK [place] Insurance:SELF PAY [facility] Number: Effective Repository Date:2017-09-05 09/05/2017 ANGIE D Primary ANGIE D [place] [id number] TR Insurance:HUMANA GOLD GREENDOB: Community [place], MEDICAREPolicy [id number] Corners Regional Health Center [address]Mxu: Number: Repository [id number] (HP) Date:8434-72-46RI [address]46[address]WP: 09/05/2017 Secondary NOT GIVENUNK [place] Insurance:SELF PAY [facility] Number: Effective Repository Date:2017-09-05 09/05/2017 ANGIE D Primary ANGIE D [place] [id number] TR Insurance:HUMANA GOLD GREENDOB: Community [place], MEDICAREPolicy [id number] [place] [address]Eqk: Number: Repository [id number] (HP) Date:2427-52-09NK [address] [address]NR: 09/05/2017 Secondary NOT GIVENUNK [place] Insurance:SELF PAY [facility] Number: Effective Repository Date:2017-09-05 09/05/2017 ANGIE D Primary ANGIE D [place] [id number] TR Insurance:HUMANA GOLD GREENDOB: Community [place], MEDICAREPolicy [id number] [place] [address]Kdk: Number: Repository [id number] (HP) Date:5201-88-30CF [address] [place] [address]DH: 09/05/2017 Secondary NOT GIVENUNK [place] Insurance:SELF PAY [facility] Number: Effective Repository Date:2017-09-05 09/05/2017 ANGIE D Primary ANGIE D [place] [id number] TR Insurance:HUMANA GOLD GREENDOB: Community [place], MEDICAREPolicy [id number] [place] [address]Tel: Number: Repository [id number] (HP) Date:9411-88-32GX [address] [place] [address]ZR: 09/05/2017 Secondary NOT GIVENUNK [place] Insurance:SELF PAY [facility] Number: Effective Repository Date:2017-09-05 09/05/2017 ANGIE D Primary ANGIE D [place] [id number] TR Insurance:HUMANA GOLD GREENDOB: Community [place], MEDICAREPolicy [id number] [place] [address]Tel: Number: Repository [id number] (HP) Date:2087-34-95VV [address] [address]LX: 09/05/2017 Secondary NOT GIVENUNK [place] Insurance:SELF PAY [facility] Number: Effective Repository Date:2017-09-05 09/05/2017 ANGIE D Primary ANGIE D [place] [id number] TR Insurance:HUMANA GOLD GREENDOB: Community [place], MEDICAREPolicy [id number] [place] [address]Tel: Number: Repository [id number] (HP) Date:4606-92-33ZZ [address] [place] [address]AU: 09/05/2017 Secondary NOT GIVENUNK [place] Insurance:SELF PAY [facility] Number: Effective Repository Date:2017-09-05 09/04/2017 ANGIE D Primary ANGIE D [place] [id number] TR Insurance:HUMANA GOLD GREENDOB: Community [place], MEDICAREPolicy [id number] [place] [address]Exb: Number: Repository [id number] (HP) Date:5966-96-92YH [address] [place] [address]VL: 09/04/2017 Secondary NOT GIVENUNK [place] Insurance:SELF PAY [facility] Number: Effective Repository Date:2017-09-04 08/31/2017 ANGIE D Primary ANGIE D [place] [id number] TR Insurance:HUMANA POLLO DIXONDOB: Community [place], MEDICAREPolicy [id number] Corners Regional Health Center [address]Onq: Number: Repository [id number] (HP) Date:0018-34-17HO [address] [place] [address]CH: 08/31/2017 Secondary NOT GIVENUNK [place] Insurance:SELF PAY [facility] Number: Effective Repository Date:2017-08-31 08/31/2017 ANGIE D Primary ANGIE D [place] [id number] TR Insurance:HUMANA POLLO DIXONDOB: [place], MEDICAREPolicy [id number] Corners Regional Health Center [address]Fav: Number: Repository [id number] (HP) Date:2334-95-05GL [address] [address]VR: 08/31/2017 Secondary NOT GIVENUNK [place] Insurance:SELF PAY [facility] Number: Effective Repository Date:2017-08-31 08/31/2017 ANGIE D Primary ANGIE D [place] [id number] TR Insurance:HUMANA POLLO DIXONDOB: Community [place], MEDICAREPolicy [id number] [place] [address]Cln: Number: Repository [id number] (HP) Date:1831-72-50XE [address] [place] [address]OD: 08/31/2017 Secondary NOT GIVENUNK [place] Insurance:SELF PAY [facility] Number: Effective Repository Date:2017-08-31 08/31/2017 ANGIE D Primary ANGIE D [place] [id number] TR Insurance:HUMANA GOLD GREENDOB: Community [place], MEDICAREPolicy [id number] Corners Regional Health Center [address]Zmr: Number: Repository [id number] (HP) Date:8178-55-49ML [address] [address]IU: 08/31/2017 Secondary NOT GIVENUNK [place] Insurance:SELF PAY [facility] Number: Effective Repository Date:2017-08-31 08/31/2017 ANGIE D Primary ANGIE D [place] [id number] TR Insurance:HUMANA GOLD GREENDOB: [place], MEDICAREPolicy [id number] Corners Regional Health Center [address]Usl: Number: Repository [id number] (HP) Date:[id number] [address] [id number]: 08/31/2017 Secondary NOT GIVENUNK [place] Insurance:SELF PAY [facility] Number: Effective Repository Date:2017-08-31 08/17/2017 ANGIE D Primary ANGIE D [place] [id number] TR Insurance:HUMANA GOLD [place]: [place], MEDICAREPolicy [id number] [address]Bdr: Number: Repository [id number] (HP) Date:[id number] [address] [id number]: 08/17/2017 Secondary NOT GIVENUNK [place] Insurance:SELF PAY [facility] Number: Effective Repository Date:2017-05-17 05/22/2017 ANGIE D Primary ANGIE D [place] [id number] TR Insurance:HUMANA GOLD GRE[place]: [place], MEDICAREPolicy [id number] [place] [address]Svy: Number: Repository [id number] (HP) Date:[id number] [address] [place] [id number]: 05/22/2017 Secondary NOT GIVENUNK Lgenn Insurance:SELF PAY [facility] Number: Effective Repository Date:2017-05-22 05/09/2017 ANGIE Robb Primary ANGIE [id number] TR Insurance:GAYLE KINGB: [place] [address], MEDICAREPolicy [id number] [address]Ply: Number: Repository [id number] (HP) Date:[id number] [address] [place] [id number]: 05/09/2017 Secondary NOT GIVENUNK [place] Insurance:SELF PAY [facility] Number: Effective Repository Date:2017-01-25
== END ==
PROVIDERS: Family Provider Family Medicine; PCP Family Medicine; Referring Provider Internal Medicine Nephrology; Visit Provider Internal Medicine Nephrology
DX: D64.9 Anemia, unspecified (principal); N18.4 Chronic kidney disease, stage 4 (severe)
CPT/HCPCS: 36415; 80069; 82728; 83540; 83550; 85027

== ENCOUNTER → 2018-01-24 14:17 | Outpatient (CLI) | payer MEDICARE, SELFPAY ==
[2017-11-23 14:50] VITALS: BMI 25.7
[2018-01-24 16:39] LABS: PTHIN 35.8 pg/mL (18.4-80.1)
--- OUTSIDE RECORDS SUMMARY | 2018-03-12 19:09 | XMS RPT_ITS ---
:1945 Author Organization OHIP Support Name Relationship Address Phone KHADRA DIXONLIS Unavailable [address] + [place] [address] R Unavailable Unavailable Unavailable GREEN, MERLE Unavailable [address] + [place] [address] R Unavailable Unavailable Unavailable GREEN, MERLE Unavailable [address] + [place] [address] R Unavailable Unavailable Unavailable GREEN, MERLE Unavailable [address] + [place] [address] R Unavailable Unavailable Unavailable GREEN, MERLE Unavailable [address] + [place] [address] R Unavailable Unavailable Unavailable GREEN, MERLE Unavailable [address] + [place] [address] R Unavailable Unavailable Unavailable GREEN, MERLE Unavailable [address] + [place] [address] R Unavailable Unavailable Unavailable GREEN, MERLE Unavailable [address] + [place] [address] R Unavailable Unavailable Unavailable GREEN, MERLE Unavailable [address] + [place] [address] R Unavailable Unavailable Unavailable R Unavailable Unavailable Unavailable GREEN, MERLE Unavailable [address] + [place] [address] R Unavailable Unavailable Unavailable GREEN, MERLE Unavailable [address] + [place] [address] R Unavailable Unavailable Unavailable GREEN, MERLE Unavailable [address] + [place] [address] R Unavailable Unavailable Unavailable GREEN, MERLE Unavailable [address] + [place] [address] R Unavailable Unavailable Unavailable GREEN, MERLE Unavailable [address] + [place] [address] R Unavailable Unavailable Unavailable GREEN, MERLE Unavailable [address] + [place] [address] R Unavailable Unavailable Unavailable GREEN, MERLE Unavailable [address] + [place] [address] R Unavailable Unavailable Unavailable GREEN, MERLE Unavailable [address] + [place] [address] R Unavailable Unavailable Unavailable GREEN, MERLE Unavailable [address] + [place] [address] R Unavailable Unavailable Unavailable GREEN, MERLE Unavailable [address] + [place] [address] R Unavailable Unavailable Unavailable GREEN, MERLE Unavailable [address] + [place] [address] R Unavailable Unavailable Unavailable GREEN, MERLE Unavailable [address] + [place] [address] R Unavailable Unavailable Unavailable GREEN, MERLE Unavailable [address] + [place] [address] GREEN, RAE Unavailable [address] + [place] [address] R Unavailable Unavailable Unavailable GREEN, MERLE Unavailable [address] + [place] [address] R Unavailable Unavailable Unavailable GREEN, MERLE Unavailable [address] + [place] [address] R Unavailable Unavailable Unavailable GREEN, MERLE Unavailable [address] + [place] [address] R Unavailable Unavailable Unavailable R Unavailable Unavailable Unavailable GREEN, MERLE Unavailable [address] + [place] [address] GREEN, RAE Unavailable [address] + [place] [address] R Unavailable Unavailable Unavailable GREEN, MERLE Unavailable [address] + [place] [address] GREEN, RAE Unavailable [address] + [place] [address] R Unavailable Unavailable Unavailable GREEN, MERLE Unavailable [address] + [place] [address] ZACK, RAE Unavailable [address] + [place] [address] R Unavailable Unavailable Unavailable GREEN, MERLE Unavailable [address] + [place] [address] GREEN, RAE Unavailable [address] + [place] [address] R Unavailable Unavailable Unavailable GREEN, MERLE Unavailable [address] + [place] [address] GREEN, RAE Unavailable [address] + [place] [address] R Unavailable Unavailable Unavailable GREEN, MERLE Unavailable [address] + [place] [address] GREEN, RAE Unavailable [address] + [place] [address] R Unavailable Unavailable Unavailable GREEN, MERLE Unavailable [address] + [place] [address] GREEN, RAE Unavailable [address] + [place] [address] R Unavailable Unavailable Unavailable GREEN, MERLE Unavailable [address] + [place] [address] GREEN, RAE Unavailable [address] + [place] [address] R Unavailable Unavailable Unavailable GREEN, MERLE Unavailable [address] + [place] [address] GREEN, RAE Unavailable [address] + [place] [address] R Unavailable Unavailable Unavailable GREEN, MERLE Unavailable [address] + [place] [address] R Unavailable Unavailable Unavailable GREEN, MERLE Unavailable [address] + [place] [address] GREEN, RAE Unavailable [address] + [place] [address] R Unavailable Unavailable Unavailable GREEN, MERLE Unavailable [address] + [place] [address] GREEN, RAE Unavailable [address] + [place] [address] R Unavailable Unavailable Unavailable GREEN, MERLE Unavailable [address] + [place] [address] GREEN, RAE Unavailable [address] + [place] [address] R Unavailable Unavailable Unavailable GREEN, MERLE Unavailable [address] + [place] [address] GREEN, RAE Unavailable [address] + [place] [address] R Unavailable Unavailable Unavailable GREEN, MERLE Unavailable [address] + [place] [address] GREEN, RAE Unavailable [address] + [place] [address] R Unavailable Unavailable Unavailable GREEN, MERLE Unavailable [address] + [place] [address] GREEN, RAE Unavailable [address] + [place] [address] R Unavailable Unavailable Unavailable GREEN, MERLE Unavailable [address] + [place] [address] GREEN, RAE Unavailable [address] + [place] [address] R Unavailable Unavailable Unavailable GREEN, MERLE Unavailable [address] + [place] [address] GREEN, RAE Unavailable [address] + [place] [address] R Unavailable Unavailable Unavailable GREEN, MERLE Unavailable [address] + [place] [address] GREEN, RAE Unavailable [address] + [place] [address] R Unavailable Unavailable Unavailable Care Team Providers Name Role Phone Tracey Royal Attending Unavailable Cebul III, Ramo Primary Care Unavailable Tracey Royal Referring Unavailable Tracey Royal Attending Unavailable Cebul III, Ramo Primary Care Unavailable Ezra Ramirez Admitting Unavailable Jayy Sanford Attending Unavailable Cebul III, Ramo Primary Care Unavailable Jayy Sanford Consulting Unavailable Carmen Hogan Consulting Unavailable Tracey Royal Attending Unavailable Cebul III, Ramo Primary Care Unavailable Nat Persaud Attending Unavailable Cebul III, Ramo Referring Unavailable Pablo Burrell Admitting Unavailable Jayy Sanford Attending Unavailable Cebul III, Ramo Primary Care Unavailable Jayy Sanford Consulting Unavailable Tracey Royal Consulting Unavailable Ashelfah, Ghasem Consulting Unavailable Jayy Sanford Attending Unavailable Cebul III, Ramo Referring Unavailable Cebul III, Ramo Primary Care Unavailable Tracey Royal Attending Unavailable Cebul III, Ramo Primary Care Unavailable Lele, Tracey Referring Unavailable Nat Persaud Attending Unavailable Cebul III, Ramo Referring Unavailable Cebul III, Ramo Primary Care Unavailable Tracey Royal Attending Unavailable Cebul III, Ramo Primary Care Unavailable Tracey Royal Attending Unavailable Cebul III, Ramo Primary Care Unavailable Lele Tracey Referring Unavailable BurrellPablo blanc Admitting Unavailable Ashelfah, Ghasem Attending Unavailable Cebul III, Ramo Primary Care Unavailable Jayy Sanford Consulting Unavailable Freedom Royaline Consulting Unavailable Ashelfah, Ghasem Consulting Unavailable Tracey Royal Attending Unavailable Cebul III, Ramo Primary Care Unavailable Pablo Burrell Admitting Unavailable Jayy Sanford Attending Unavailable Cebul III, Ramo Primary Care Unavailable Jayy Sanford Consulting Unavailable Freedom Royaline Consulting Unavailable Ashelfah, Ghasem Consulting Unavailable Ashnati, Pablo Admitting Unavailable Ashelfah, Ghasem Attending Unavailable Cebul III, Ramo Primary Care Unavailable Jayy Sanford Consulting Unavailable Ashelfah, Ghasem Consulting Unavailable BurrellPablo blanc Admitting Unavailable Ashelfah, Ghasem Attending Unavailable Cebul III, Ramo Primary Care Unavailable Jayy Sanford Consulting Unavailable Ashelfah, Ghasem Consulting Unavailable BurrellPablo blanc Admitting Unavailable Jayy Sanford Attending Unavailable Cebul III, Ramo Primary Care Unavailable Jayy Sanford Consulting Unavailable Ashelfah, Ghasem Consulting Unavailable Pablo Burrell Attending Unavailable Cebul III, Ramo Primary Care Unavailable Cebul III, Ramo Primary Care Unavailable Pablo Burrell Admitting Unavailable Jayy Sanford Consulting Unavailable Ashelfah, Ghasem Attending Unavailable Lele, Tracey Consulting Unavailable Kavita Hinojosa MANUFACTURING SUPPORT ENGINEER-C Attending Unavailable Kavita Hinojosa MANUFACTURING SUPPORT ENGINEER-C Referring Unavailable Cebul III, Ramo Primary Care Unavailable Ezra Ramirez Admitting Unavailable Carmen Hogan Attending Unavailable Cebul III, Ramo Primary Care Unavailable Jayy Sanford Consulting Unavailable Carmen Hogan Consulting Unavailable Tracey Royal Attending Unavailable Cebul III, Ramo Primary Care Unavailable Freedom Royaline Referring Unavailable Agyepong, Ezra Admitting Unavailable Jayy Sanford Attending Unavailable Cebul III, Ramo Primary Care Unavailable Jayy Sanford Consulting Unavailable Ezra Ramirez Consulting Unavailable Agyepong, Ezra Admitting Unavailable Agyepong, Ezra Attending Unavailable Cebul III, Ramo Primary Care Unavailable Agyepong, Ezra Consulting Unavailable Cebul III, Ramo Primary Care Unavailable Agyepong, Ezra Admitting Unavailable Jayy Sanford Consulting Unavailable Carmen Hogan Attending Unavailable Tracey Royal Attending Unavailable Cebul III, Ramo Primary Care Unavailable Lele, Tracey Referring Unavailable Lele, Tracey Attending Unavailable Cebul III, Ramo Primary Care Unavailable Lele, Tracey Referring Unavailable Lele, Tracey Attending Unavailable Cebul III, Ramo Primary Care Unavailable Lele, Tracey Referring Unavailable Lele, Tracey Attending Unavailable Cebul III, Ramo Primary Care Unavailable Pablo Khan Attending Unavailable Ross Ackerman Referring Unavailable Jayy Sanford Attending Unavailable Carmen Hogan Referring Unavailable Lele, Tracey Attending Unavailable Cebul III, Ramo Primary Care Unavailable Jayy Sanford Attending Unavailable Cebul III, Ramo Referring Unavailable Nat Persaud Attending Unavailable Cebul III, Ramo Referring Unavailable Samira, Carmen Admitting Unavailable Ross Ackerman Attending Unavailable Cebul III, Ramo Primary Care Unavailable Pablo Khan Consulting Unavailable Ross Ackerman Consulting Unavailable White, Carmen Admitting Unavailable Carmen Hogan Attending Unavailable Cebul III, Ramo Primary Care Unavailable MoodispaPablo acosta Consulting Unavailable Carmen Hogan Consulting Unavailable Cebul III, Ramo Primary Care Unavailable Carmen Hogan Admitting Unavailable Pablo Khan Consulting Unavailable Ross Ackerman Attending Unavailable Jayy Sanford Attending Unavailable Kavita Hinojosa, MANUFACTURING SUPPORT ENGINEER-C Referring Unavailable Nat Persaud Attending Unavailable Cebul III, Ramo Referring Unavailable Cebul III, Ramo Primary Care Unavailable Nat Persaud Attending Unavailable Cebul III, Ramo Referring Unavailable Cebul III, Ramo Primary Care Unavailable Jayy Sanford Attending Unavailable Ar, Giorgio Referring Unavailable Cebul III, Ramo Primary Care Unavailable Ar, Giorgio Consulting Unavailable Jayy Sanford Attending Unavailable Jayy Sanford Referring Unavailable Cebul III, Ramo Primary Care Unavailable Ar, Giorgio Attending Unavailable Ar, Giorgio Referring Unavailable Cebul III, Ramo Primary Care Unavailable Ar, Giorgio Consulting Unavailable Ar, Giorgio Attending Unavailable Ar, Giorgio Referring Unavailable Cebul III, Ramo Primary Care Unavailable CEBUL III, RAMO A Attending Unavailable CEBUL III, RAMO A Referring Unavailable CEBUL III, RAMO A Attending Unavailable CEBUL III, RAMO A Referring Unavailable CEBUL III, RAMO A Attending Unavailable CEBUL III, RAMO A Referring Unavailable CEBUL III, RAMO A Referring Unavailable EDDIE, ROSS FOLEY Admitting Unavailable EDDIE, ROSS FOLEY Attending Unavailable EDDIE, ROSS Admitting Unavailable EDDIE, ROSS Attending Unavailable CEBUL, RAMO Primary Care Unavailable PROBLEMS PROBLEMS DATE TYPE CONDITION / CODE ATTENDING STATUS SOURCE Unknown N25.81 - Secondary Lele Tracey Active [place] 9 hyperparathyroidism of Community renal origin / Hospital N25.81(ICD-10) Repository Active Non-ST elevation ROSS MORGAN Active [place] 8 (NSTEMI) myocardial [facility] Other infarction / [place] I21.4(ICD-10) Repository Active Other chest pain / ROSS MORGAN [facility] 8 R07.89(ICD-10) [facility] Other [place] Repository Active Shortness of breath / ROSS MORGAN [facility] 8 R06.02(ICD-10) [facility] Other [place] Repository Active Atherosclerotic heart ROSS MORGAN [facility] 8 disease of [place] [facility] Other coronary artery without [place] angina pectoris / Repository I25.10(ICD-10) Active Ischemic cardiomyopathy ROSS MORGAN [facility] 8 / I25.5(ICD-10) [facility] Other [place] Repository Active Chronic systolic ROSS MORGAN [facility] 8 (congestive) heart [facility] Other failure / I50.22(ICD-10) [place] Repository Admitting Unknown / UNK(Unknown) ROSS MORGAN [place] [address] diagnosis Health System Repository Unknown I25.5 - Ischemic [place] Persaud Active [place] 8 cardiomyopathy / Community I25.5(ICD-10) Hospital Repository Unknown I25.118 - Jayy Sanford Active [place] 8 Atherosclerotic heart Community disease of [place] [facility] coronary artery with Repository other forms of angina pectoris / I25.118(ICD-10) Unknown Z86.39 - Personal Jayy Sanford Active [place] 8 history of other Community endocrine, nutritional Hospital and metabolic disease / Repository Z86.39(ICD-10) Unknown I51.9 - Heart disease, Jayy Sanford Active [place] 8 unspecified / Community I51.9(ICD-10) Hospital Repository Unknown R94.31 - Abnormal Jayy Sanford Active [place] 8 electrocardiogram [ECG] Community [EKG] / R94.31(ICD-10) Hospital Repository Unknown R07.9 - Chest pain, Jayy Sanford Active [place] 8 unspecified / Community R07.9(ICD-10) Hospital Repository Unknown I25.110 - Jayy Sanford Active [place] 8 Atherosclerotic heart Community disease [facility] coronary artery with Repository unstable angina pectoris / I25.110(ICD-10) Active Encounter for screening NA Active [place] 8 for other viral diseases [facility] / Z11.59(ICD-10) [place] Rep[facility] Active Type 2 diabetes mellitus NA Active [place] 8 with diabetic chronic [facility] kidney disease / [place] E11.22(ICD-10) Repository Active Chronic kidney disease, NA Active [place] 8 stage 4 (severe) / [facility] N18.4(ICD-10) [place] Repository Active Other penitentiary NA Active [place] 8 (current) drug therapy / [facility] Z79.899(ICD-10) [place] Repository PROCEDURES PROCEDURES No Procedure Records FoundRESULTS RESULTS PTHIN Collected: 02/23/2018 Status: F Source: [place] 1:01 PM [facility] REPOSITORY TYPE CODE TESTS RESULT OUT OF RANGE REFERENCE UNITS LAB L509.1000 18.4-80.1 pg/mL High PTHIN 106.8 Performed By: #### L509.1000 #### [facility] [address] [place], [place], [address] PTHIN Collected: 01/24/2018 Status: F Source: [place] 2:18 PM [facility] REPOSITORY TYPE CODE TESTS RESULT OUT OF RANGE REFERENCE UNITS LAB L509.1000 18.4-80.1 pg/mL Normal PTHIN 35.8 Performed By: #### L509.1000 #### [facility] [address] [place], [place], [address] CBC-COMPLETE BLOOD CNT Collected: 01/15/2018 Status: F Source: [place] NO DIFF 11:38 AM [facility] REPOSITORY TYPE CODE TESTS RESULT OUT OF [...] MPV 11.6 Performed By: #### L100.0500 #### [facility] [address] [place], [address] RENAL PROFILE Collected: 01/15/2018 Status: F Source: [place] 11:38 AM [facility] REPOSITORY TYPE CODE TESTS RESULT OUT OF [...] Performed By: #### L500.3600, L503.6030, L503.6550 #### [facility] [address] [place], [place], [address] IRON+IRON BINDING Collected: 01/15/2018 Status: F Source: [facility] 11:38 AM [facility] REPOSITORY TYPE CODE TESTS RESULT OUT OF RANGE REFERENCE UNITS LAB L503.6075 250-450 ug/dL TIBC Normal 327 LAB L503.6150 65-175 ug/dL IRON Normal 71 LAB L503.6250 15.0-55.0 % IRON Normal SATURATION 21.7 Performed By: #### L500.3600, L503.6030, L503.6550 #### [facility] [address] [place], [place], [address] FERRITIN Collected: 01/15/2018 Status: F Source: [facility] 11:38 AM [facility] REPOSITORY TYPE CODE TESTS RESULT OUT OF RANGE REFERENCE UNITS LAB L503.6550 26-388 ng/mL Normal F[place]IT[place] 59 Performed By: #### L500.3600, L503.6030, L503.6550 #### [facility] [address] [place], [place], [address] RENAL PROFILE Collected: 12/15/2017 Status: F Source: [facility] [place] 12:30 PM [facility] REPOSITORY TYPE CODE TESTS RESULT OUT OF [...] CO2 22.0 Performed By: #### L500.3600 #### [facility] [place], [address] CNNURSE Observed: 12/11/2017 Status: COMPLETED Source: [place] 10:45 AM [facility] REPOSITORY Nurse Visit (FAMPWS) ANGIE DIXON ([id number]) 1945 M Date Time Provider Department 12/11/17 10:45 AM [place] NURSE FAMPWS During your visit today, we recorded [...] Delaney LPN Referring Provider: RAMO MOREIRA III [[id number]] Allergies As of Date: 12/11/2017 Noted Allergy Reaction ATORVASTATIN CALCIUM 11/08/2017 5 - Intolerance Comments: Joint pains COVERA-HS (VERAPAMIL HCL) 01/27/2005 5 - Intolerance Comments: passed out LISINOPRIL 03/11/2006 3 - Cough NIASPAN (NIACIN) 04/28/2009 2 - Rash Date Reviewed: 11/27/2017 Reviewed by: Roseanne ([facility]) HANNAH Sarabia - Fully Assessed Reason [...] unspecified site (HC*INVALID FOR*07/09/2014 PULM EMBOLISM/INFARCT IATROGENIC [T81.258A, I26* 07/09/2014 DVT-ARM [I82.629] 07/09/2014 Abscess of intestine [K63.0] INVALID FOR*07/09/2014 Gout [M10.9] INVALID FOR* Biceps tendon rupture [S46.219A] INVALID FOR*07/09/2014 Benign prostatic hyperplasia with urinary obstr*INVALID FOR* Chronic depression [F32.9] INVALID FOR* Hyperkalemia [E87.5] INVALID FOR*05/25/2017 Atherosclerosis of [place] coronary artery of na*INVALID FOR* Hyperlipidemia LDL goal <100 [E78.5] INVALID FOR* 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] INVALID FOR* Encounter for screening for malignant neoplasm *INVALID FOR*01/22/2015 Type 2 diabetes mellitus with stage 4 chronic k*INVALID FOR* Acute kidney failure, unspecified (HCC) [N17.9] INVALID FOR*09/18/2017 Exposure to Agent Lea [Z77.098] INVALID FOR* History of colostomy [XAD0617] INVALID FOR* History of gout [Z87.39] INVALID [...] 12/11/17 PROGRESS Observed: 12/11/2017 Status: COMPLETED Source: [place] 10:30 AM [facility] REPOSITORY [facility] ID: [id number] Author: Cheryl Delaney LPN Service: (none) Author [...] LPN PROGRESS Observed: 11/27/2017 Status: COMPLETED Source: [place] 10:02 AM [facility] REPOSITORY O ID: [id number] Author: Ramo Moreira III Service: (none) Author [...] Diagnosis Date - Atherosclerotic heart disease of [place] coronary artery with other forms of angina pectoris ([facility]) - BPH (benign prostatic hypertrophy) with urinary obstruction 07/09/2014 - CAD (coronary artery disease) - Chronic renal insufficiency - DVT of upper extremity (deep vein thrombosis) ([facility]) - Esophageal reflux - Essential hypertension, benign - Gout 04/22/2010 - Hx of CABG 3 - Iatrogenic pulmonary embolism and infarction ([facility]) - LV dysfunction - NSTEMI (non-ST elevated myocardial infarction) ([facility]) 2012 - Other and unspecified hyperlipidemia - Type 2 diabetes mellitus with stage 4 chronic kidney disease ([facility]) 06/05/2015 - Unequal leg length (acquired) Current [...] by mouth daily at bedtime. ) Insulin [place], Disposable, (PEN NEEDLE) 29 gauge X 1/2 [...] recommend reducing imdur 30mg daily refer to instructor decorating regarding resistant rash 30 min visit JENNY Pitts MD, III MD PROGRESS Observed: 11/27/2017 Status: COMPLETED Source: [place] 9:44 AM [facility] REPOSITORY [facility] ID: [id number] Author: Roseanne Angel) HANNAH Sarabia Service: (none) Author Type: Obstetrics And Gynecology Professor Type: Progress Notes Filed: 11/27/2017 1:30 PM Note Text: Cosigned by: Crissy Broussard Pharmd at 11/13/2017 ?1:05 PM Attestation signed by Crissy Broussard Pharmd at 11/13/2017 1:05 PM (Updated) ? Provider Action/FYI: ? Dr Moreira, ? ? Per reconcile dispense report and [facility] pharmacy, noted patient may be non-adherent with [...] ? 11/27/2017 9:40 AM RAMO MOREIRA III [facility] [place] [phone] ? ? ? I reviewed the medication [...] have been noted in italics. ? Crissy Broussard PharmD November 13, 2017 12:53 PM ? Expand All Collapse All TRANSITION CARE MANAGEMENT (TCM) INITIAL CONTACT ? Provider Action/FYI: ? ? Able to complete medication review. Patient would like to keep current PCP appointment. ? ? Initial contact with patient post discharge, spoke to patient. Patient identified by name and . ? Summary: -Pt discharged from [place] on 11/10/17. -Follow up appointment on 11/27/17. [...] Units subcutaneously once daily. ? ? Insulin [place], Disposable, (PEN NEEDLE) 29 gauge X 1/2 [...] November 13, 2017 11:03 AM ? ? MARIANA Observed: 11/27/2017 Status: COMPLETED Source: [place] 9:40 AM [facility] REPOSITORY Office Visit (FAMPWS) ANGIE DIXON ([id number]) 1945 M Date Time Provider Department 11/27/17 9:40 AM RAMO MOREIRA III FAMPWS During your visit today, we recorded the following information about you: Pulse Respiration Blood pressure Weight 88/minute 16/minute 119/68 75.3 kg Roseanne Sarabia CMA, MA 11/27/2017 1:30 PM Signed Cosigned by: Crissy Broussard Pharmd at 11/13/2017 ?1:05 PM Attestation signed by Crissy Kingd at 11/13/2017 1:05 PM (Updated) ? Provider Action/FYI: ? Dr Moreira, ? ? Per reconcile dispense report and [facility] pharmacy, noted patient may be non-adherent with [...] ? 11/27/2017 9:40 AM RAMO MOREIRA III [facility] [place] [phone] ? ? ? I reviewed the medication [...] and . ? Summary: -Pt discharged from [place] on 11/10/17. -Follow up appointment on 11/27/17. [...] Units subcutaneously once daily. ? ? Insulin [place], Disposable, (PEN NEEDLE) 29 gauge X 1/2 [...] Diagnosis Date - Atherosclerotic heart disease of [place] coronary artery with other forms of angina pectoris ([facility]) - BPH (benign prostatic hypertrophy) with urinary obstruction 07/09/2014 - CAD (coronary artery disease) - Chronic renal insufficiency - DVT of upper extremity (deep vein thrombosis) ([facility]) - Esophageal reflux - Essential hypertension, benign - Gout 04/22/2010 - Hx of CABG 3 - Iatrogenic pulmonary embolism and infarction ([facility]) - LV dysfunction - NSTEMI (non-ST elevated myocardial infarction) ([facility]) 2012 - Other and unspecified hyperlipidemia - Type 2 diabetes mellitus with stage 4 chronic kidney disease ([facility]) 06/05/2015 - Unequal leg length (acquired) Current [...] by mouth daily at bedtime. ) Insulin [place], Disposable, (PEN NEEDLE) 29 gauge X 1/2 [...] recommend reducing imdur 30mg daily refer to instructor decorating regarding resistant rash 30 min visit JENNY Pitts MD, III MD Frank A Cebul, III MD 11/27/2017 10:28 AM Signed PLAN: healthy diet and regular exercise same medications for now I will discuss possible reduction in isosorbide dose in order to reduce lightheadedness refer to instructor decorating regarding resistant rash Ramo Moreira III MD Referring Provider: RAMO MOREIRA III [[id number]] Allergies As of Date: 11/27/2017 Noted Allergy Reaction ATORVASTATIN CALCIUM 11/08/2017 5 - Intolerance Comments: Joint pains COVERA-HS (VERAPAMIL HCL) 01/27/2005 5 - Intolerance Comments: passed out LISINOPRIL 03/11/2006 3 - Cough NIASPAN (NIACIN) 04/28/2009 2 - Rash Date Reviewed: 11/27/2017 Reviewed by: Roseanne ([facility]) HANNAH Sarabia - Fully Assessed Reason for Visit: TCM [Other] Cmt: [facility]-chest pain Primary Visit Diagnosis:Atherosclerosis of [place] coronary artery of [place] heart with angina pectoris (HCC) [I25.119] Other Visit Diagnoses:Essential hypertension, benign [I10] Chronic depression [F32.9] Rash [R21] Orthostatic hypotension [I95.1] Order(s):CONSULT TO DERMATOLOGY [0640] Order #: [id number]: 1 isosorbide mononitrate ER (IMDUR) 60 mg [...] FOR* Hyperkalemia [E87.5] INVALID FOR*05/25/2017 Atherosclerosis of [place] coronary artery of na*INVALID FOR* Hyperlipidemia LDL goal <100 [E78.5] INVALID FOR* 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] INVALID FOR* Encounter for screening for malignant neoplasm *INVALID FOR*01/22/2015 Type 2 diabetes mellitus with stage 4 chronic k*INVALID FOR* Acute kidney failure, unspecified (HCC) [N17.9] INVALID FOR*09/18/2017 Exposure to Agent Lea [Z77.098] INVALID FOR* History of colostomy [QPI8093] INVALID FOR* History of gout [Z87.39] INVALID [...] in order to reduce lightheadedness refer to instructor decorating regarding resistant rash Ramo Moreira III MD [...] 11/27/17 PROGRESS Observed: 11/24/2017 Status: COMPLETED Source: [place] 3:05 PM [facility] REPOSITORY [facility] ID: [id number] Author: Ramo Moreira III Service: (none) Author Type: Physician Type: Progress Notes Filed: 11/24/2017 3:05 PM Note Text: There is improved diabetic control. We'll discuss with patient at upcoming appointment. Ramo Moreira III, MD, [facility] C[facility] VISIT Observed: 11/23/2017 Status: F Source: [place] REPORT 3:11 PM [facility] REPOSITORY [address] [place] [address] OFFICE VISIT Date of Service: 11/23/17 MR#: [id number] Acct: [id number] Name: ANGIE DIXON Rep #: [id number] : 1945 Provider: Jayy Sanford MD Age/Sex: 72/M Location: [facility] [place] Status: Signed HPI HPI Chief Complaint: CHEST [...] He was then transferred to [facility] where he underwent successful cutting balloon angioplasty and stenting of his left main receiving a 4.0X8 Promus Synergy stent by Dr. Morgan with an excellent result. He then underwent AICD placement with Dr. Renee at [facility] Patient blood pressure is much better controlled now with maximal medical therapy. He denies any chest pain, angina, shortness of breath or dyspnea on exertion. He denies any lower extremity edema. He is taking and tolerating his medicines well. Patient feels much better since his angioplasty and stenting, and is participating in cardiac rehab at [facility] on his own. 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 Morgan [facility]); negative for fatigue, weakness, body ache, fever(s), [...] balloon by Dr. Morgan at [facility] on 11/08/17. He is taking and tolerating his medicines well. He is participating in exercise in cardiac rehab on his own at [facility]. I recommend lifelong baby aspirin and Plavix [...] to saving. Plan Detail Follow Up +6M (Akil) Coding Level of Care Code Off vis,est,level 3 Diagnoses CAD (coronary artery disease) I25.10 History of hyperlipidemia Z86.39 Coding Level of Care Code Off vis,est,level 3 Diagnoses CAD (coronary artery disease) I25.10 History of hyperlipidemia Z86.39 11/23/17 1511 <Electronically signed by Jayy Sanford MD> Date Jayy Sanford MD Cosign Signature: Date (if applicable) CC: Ramo Moreira III, MD CBC-COMPLETE BLOOD CNT Collected: 11/23/2017 Status: F Source: [place] NO DIFF 2:05 PM [facility] REPOSITORY TYPE CODE TESTS RESULT OUT OF [...] MPV 10.7 Performed By: #### L100.0500 #### [facility] [address] [place], [place], [address] RENAL PROFILE Collected: 11/23/2017 Status: F Source: [place] 2:05 PM [facility] REPOSITORY TYPE CODE TESTS RESULT OUT OF [...] CO2 22.0 Performed By: #### L500.3600 #### [facility] [address] [facility] [place], [address] PTHIN Collected: 11/23/2017 Status: F Source: [place] 2:05 PM [facility] REPOSITORY TYPE CODE TESTS RESULT OUT OF RANGE REFERENCE UNITS LAB L509.1000 18.4-80.1 pg/mL High PTHIN 262.5 Performed By: #### L509.1000 #### [facility] [address] [place], [address] ALBUMIN/CREAT RATIO Collected: 11/23/2017 Status: F Source: [place] 1:53 PM [facility] REPOSITORY TYPE CODE TESTS RESULT OUT OF [...] 1995, 25:107) Performed By: #### UACR #### [facility] [address] [place], [place] [address] HEMOGLOBIN A1C Collected: 11/23/2017 Status: F Source: [place] 12:57 PM [facility] REPOSITORY TYPE CODE TESTS RESULT OUT OF REFERENCE UNITS RANGE LAB HGBA1C 4.3-5.6 % High Hemoglobin A1c 7.1 LAB HBA0 mg/dL Est. Average Glucose 157 Result Comment: eAG: (Estimated average glucose) is a calculated value from HgbA1c and is front office representative of the average blood glucose level in the last 2-3 month period. Performed By: #### HBA1C #### [facility] [address] [place], [place] [address] PACEMAKER CHECK Observed: 11/20/2017 Status: F Source: [place] 9:11 AM [facility] REPOSITORY [facility] [address] [place] [address] Pacemaker Check Date of Service: 11/17/171114 MR#: [id number] Acct: [id number] Name: ZACKANGIE Clarisse Rep #: [id number] : 1945 From: Nat Persaud Age/Sex: 72/M Location: [facility] Status: Signed Billing Codes ICD Device Billing: ICD Dev Prog Renetta, Single 11/17/171116 <Electronically signed by Nat Persaud > Date Nat Persaud 11/20/17910<Electronically signed by Jayy Sanford MD> Cosigner Signature: Date (if applicable) Jayy Sanford MD CC: PROGRESS Observed: 11/14/2017 Status: COMPLETED Source: [place] 6:41 PM [facility] REPOSITORY [facility] ID: [id number] Author: Ramo Moreira III Service: (none) Author Type: Physician Type: Progress Notes Filed: 11/15/2017 7:12 AM Note Text: Noted all--thanks for your work Ramo Moreira III, MD, FAAFP CNPTOUTREACH Observed: 11/14/2017 Status: COMPLETED Source: [place] 12:00 AM [facility] REPOSITORY Patient Outreach (FAMPST) ANGIE DIXON ([id number]) 1945 M Date Time Provider Department 11/14/17 RAMO MOREIRA IIIPSAmarilis During your visit today, we recorded the [...] Order(s):ALBUMIN/CREAT RATIO RND UR [SQUACR] Order #: [id number] FUTURE HGB A1C [SRDES9Z] Order #: [id number] FUTURE Prescriptions as of 11/14/2017 Sig: DILTIAZEM [...] FOR* Hyperkalemia [E87.5] INVALID FOR*05/25/2017 Atherosclerosis of [place] coronary artery of na*INVALID FOR* Hyperlipidemia LDL goal <100 [E78.5] INVALID FOR* 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] INVALID FOR* Encounter for screening for malignant neoplasm *INVALID FOR*01/22/2015 Type 2 diabetes mellitus with stage 4 chronic k*INVALID FOR* Acute kidney failure, unspecified (HCC) [N17.9] INVALID FOR*09/18/2017 Exposure to Agent Lea [Z77.098] INVALID FOR* History of colostomy [DUS2955] INVALID FOR* History of gout [Z87.39] INVALID FOR* History of hypertension [Z86.79] INVALID FOR* History of pulmonary embolism [Z86.711] INVALID FOR* Peripheral vascular disease, unspecified (HCC) *INVALID FOR* NSTEMI (non-ST elevated myocardial infarction) *INVALID FOR*11/10/2017 S/P angioplasty with stent [Z95.9] INVALID FOR* Systolic heart failure (HCC) [I50.20] INVALID FOR* GERD (gastroesophageal reflux disease) [K21.9] INVALID FOR* Encounter Status:Closed by EMIL, PRODUSER on 12/15/17 PROGRESS Observed: 11/13/2017 Status: COMPLETED Source: [place] 11:03 AM [facility] REPOSITORY [facility] ID: [id number] Author: Yesica Vasquez Pharm-T Service: (none) Author Type: (none) Type: Progress Notes Filed: 11/13/2017 1:03 PM Note Text: Attestation signed by Crissy Kingd at 11/13/2017 1:05 PM (Updated) Provider Action/FYI: Dr Moreira, ?Per reconcile dispense report and [facility] pharmacy, noted patient may be non-adherent with [...] Phone 11/27/2017 9:40 AM RAMO MOREIRA III [facility] [phone] I reviewed the medication history and agree [...] Broussard PharmD November 13, 2017 12:53 PM TRANSITION CARE MANAGEMENT (TCM) INITIAL CONTACT Provider Action/FYI: ? Able to complete medication review. Patient would like to keep current PCP appointment. Initial contact with patient post discharge, spoke to patient. Patient identified by name and . Summary: -Pt discharged from [facility] on 11/10/17. -Follow up appointment on 11/27/17. [...] Inject 14 Units subcutaneously once daily. Insulin [place], Disposable, (PEN NEEDLE) 29 gauge X 1/2 [...] Vasquez Pharm-T November 13, 2017 11:03 AM CASA Observed: 11/13/2017 Status: COMPLETED Source: [place] 12:00 AM [facility] REPOSITORY Patient Outreach (PHRXRF) ANGIE DIXON ([id number]) 1945 M Date Time Provider Department 11/13/17 RAMO MOREIRA III PHRXRF During your visit today, we recorded the following information about you: Yesica Vasquez Pharm-T 11/13/2017 11:09 AM Attested Attestation signed by Crissy Kingd at 11/13/2017 1:05 PM (Updated) Provider Action/FYI: Dr Moreira, ?Per reconcile dispense report and [facility] pharmacy, noted patient may be non-adherent with [...] Phone 11/27/2017 9:40 AM RAMO MOREIRA III [facility] [phone] I reviewed the medication history and agree [...] have been noted in italics. Crissy Broussard, ChristineD November 13, 2017 12:53 PM TRANSITION CARE MANAGEMENT (TCM) INITIAL CONTACT Provider Action/FYI: ? Able to complete medication review. Patient would like to keep current PCP appointment. Initial contact with patient post discharge, spoke to patient. Patient identified by name and . Summary: -Pt discharged from [facility] on 11/10/17. -Follow up appointment on 11/27/17. [...] Inject 14 Units subcutaneously once daily. Insulin [place], Disposable, (PEN NEEDLE) 29 gauge X 1/2 [...] 11:03 AM Removed attestation signed by Crissy Broussard Pharmd at 11/13/2017 1:04 PM (removed by Crissy Broussard Pharmd at 11/13/2017 1:05 PM) Provider Action/FYI: Dr Moreira, ?Per reconcile dispense report and [facility] pharmacy, noted possible adherence concerns. Please review [...] Phone 11/27/2017 9:40 AM RAMO MOREIRA III [facility] [phone] I reviewed the medication history and agree [...] Dr Moreira, ?Per reconcile dispense report and [facility] pharmacy, noted possible adherence concerns. 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] INVALID FOR* Encounter for screening for malignant neoplasm *INVALID FOR*01/22/2015 Type 2 diabetes mellitus with stage 4 chronic k*INVALID FOR* Acute kidney failure, unspecified (HCC) [N17.9] INVALID FOR*09/18/2017 Exposure to Agent Lea [Z77.098] INVALID FOR* History of colostomy [RXJ9569] INVALID FOR* History of gout [Z87.39] INVALID [...] 11/15/17 NUTRITION Observed: 11/10/2017 Status: COMPLETED Source: [place] 3:10 PM [facility]INIC OTHER [facility]AMPUS REPOSITORY [facility] ID: [id number] Author: Mari Mcnair Service: Nutrition Therapy Author [...] November 10, 2017 TIME: 3:24 PM PAGER: [phone] 12 LEAD ELECTROCARDIOGRAM Observed: 11/10/2017 Status: F Source: [place] 3:00 PM [facility] REPOSITORY [facility] Cardiovascular Services [address] [place] [address] 12 Lead EKG 11/08/17 0515 MR#: [id number] Acct: [id number] Name: ANGIE DIXON Rep #: [id number] : 1945 72 From: Woo Mills MD [...] IS UNCONFIRMED Confirmed by WOO MILLS MD ([id number]), department editor TEA BATISTA ([id number]) on 11/10/2017 2:59:41 PM Referred By: SAMIRA Confirmed By:WOO MILLS MD 11/10/17 1455 Date Woo Mills MD CC: Carmen Hogan; Ross Ackerman MD; Ramo Moreira III, MD Signed 12 LEAD ELECTROCARDIOGRAM Observed: 11/10/2017 Status: F Source: [place] 2:19 PM [facility] REPOSITORY [facility] Cardiovascular Services [address] [place] [address] 12 Lead EKG 11/07/17 1853 MR#: [id number] Acct: [id number] Name: ZACKANGIE Clarisse Rep #: [id number] : 1945 72 From: Pablo Khan MD Attending Dr: Ross Ackerman MD Status: DIS IN Ordering Dr: Tarun Barajas MD Date: 11/07/17 Location: ICU Sex: M C Admitted: 11/07/17 Test Reason : CP Blood Pressure : / mmHG Vent. Rate : 107 BPM Atrial Rate : 107 BPM P-R Int : 168 ms QRS Dur : 104 ms QT Int : 370 ms P-R-T Axes : 060 046 -79 degrees QTc Int : 493 ms Sinus tachycardia Marked ST abnormality, possible inferior-lateral subendocardial injury Abnormal ECG Confirmed by PABLO KHAN MD ([id number]), department editor TEA BATISTA ([id number]) on 11/10/2017 2:19:17 PM Referred By: FELA Confirmed By:PABLO KHAN MD 11/10/17 2180 Date Pablo Khan MD CC: Ross Ackerman MD; Ramo Moreira III, MD; Tarun Barajas MD Signed CNDS Observed: 11/10/2017 Status: COMPLETED Source: [place] 1:30 PM [facility] OTHER [facility]AMP[facility] REPOSITORY [facility] ID: [id number] Author: Zaheer Calvo (Pa) Service: Cardiovascular Surgery Author Type: Physician Pharmacoepidemiologist Type: Discharge Summaries Filed: 11/10/2017 1:46 PM [...] Protonix. Pt is to follow-up with his newcomer hostess, Dr. Sanford, in 2 weeks and his primary care doctor, Dr. Moreira, in 5-7 weeks. OTHER PROBLEMS/DIAGNOSIS: Active Problems: S/P angioplasty with stent Systolic heart failure (HCC) GERD (gastroesophageal reflux disease) Resolved Problems: NSTEMI (non-ST elevated myocardial infarction) ([facility]) OPERATIONS PERFORMED WHILE IN THE HOSPITAL: Right [...] Patient/Parents to call for appointment?: Yes Ross (Kylee Sanford [phone] [address] [facility] [address] PCP Requested Referral Follow-Up Appointment When: In 4 weeks Ramo Moreira III [phone] [address] [facility] [address] PCP Requested Referral FOLLOW-UP APPOINTMENTS ALREADY SCHEDULED WITH A [facility] PROVIDER: Future Appointments Date Time Provider Department Center 11/27/2017 9:40 AM Ramo Moreira III [facility] ALLERGIES Allergen Reactions - Atorvastatin Calcium Intolerance [...] g Refills: 1 Associated Diagnoses:Tinea corporis Insulin [place], Disposable, (PEN NEEDLE) 29 gauge X 1/2 [...] patient. SIGNATURE: Zaheer Calvo PA-C PAGER/CONTACT #: [phone] DATE: November 10, 2017 TIME: 1:30 PM GLUCOSE METER Collected: 11/10/2017 Status: F Source: [facility] 11:36 AM HEALTH SYSTEM REPOSITORY TYPE CODE TESTS RESULT OUT OF REFERENCE UNITS RANGE LAB GLUBL(LOINC 70-99 mg/dL ) High Glucose Meter 180 Result Comment: RN NOTIFIED Performed By: #### GLMET #### [place] [address] CASE MGT INIT Observed: 11/10/2017 Status: COMPLETED Source: [facility] [place] 9:48 AM CLINIC OTHER CAMPUS REPOSITORY HNO ID: [id number] Author: Diane (Rn) LEE Otero Service: (none) Author Type: Registered Nurse Type: Care Mgt Initial Assessment Filed: 11/10/2017 9:50 AM Note Text: CARE MANAGEMENT: ASSESSMENT AND DISCHARGE PLAN SERVICE DATE: 11/10/2017 SERVICE TIME: 9:48 AM PRIMARY CARE PHYSICIAN: Ramo Moreria III MD ADMISSION STATUS: Inpatient Needs Prior to Discharge: To Be Determined 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 No Advance Directive: Current Advance Directive: Health Care Power of Tax Economist;Living Will In Chart: No Unmanned Aircraft Systems Roboticist Attempted to Assist with AD Completion: No [...] None Has the Patient Been in a Fpc Facility in the Past 30 days? 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 [facility]. Plan is to return home at disch. SIGNATURE: Diane Otero RN PATIENT NAME: Angie Dixon DATE: November 10, 2017 TIME: 9:48 AM PAGER/CONTACT #: [phone] ALLIED HEALTH Observed: 11/10/2017 Status: COMPLETED Source: [place] 8:39 AM CLINIC OTHER CAMPUS REPOSITORY O ID: [id number] Author: Pablo (Gunner'S Mate G) LOGAN Allison Service: Cardiac Rehab Author Type: Registered Resp Therapist Type: Allied Health Filed: 11/10/2017 8:43 AM Note Text: CARDIAC REHABILITATION PATIENT EDUCATION PROGRESS NOTE Name: Angie Dixon Date of Service: 11/10/17 Time of Service: 839 ASSESSMENT: Risk Factors Identified: Diabetic: Insulin Dependent Family History Hyperlipidemia Hypertension RECOMMENDATIONS: Patient interested in Phase II Outpatient Cardiac Rehab: Yes. Facility Preferred: [place] DIAGNOSIS: Percutaneous Cardiac Intervention: ALBERTO PCI Teaching [...] Rehabilitation Brochure Signature: Pablo Allison RRT Pager: [phone] Date: November 10, 2017 Time: 8:40 AM HEMOGRAM Collected: 11/10/2017 Status: F Source: [facility] 4:30 AM HEALTH SYSTEM REPOSITORY TYPE CODE [...] MPV 11.5 Performed By: #### CBC1 #### [facility] [address] [place] [address] BASIC PANEL Collected: 11/10/2017 Status: F Source: [facility] 4:30 AM HEALTH SYSTEM REPOSITORY TYPE CODE [...] Gap 14 Performed By: #### P8 #### [facility] [address] [place] [address] TROPONIN I Collected: 11/10/2017 Status: F Source: [facility] 4:30 AM HEALTH SYSTEM REPOSITORY TYPE CODE TESTS RESULT OUT OF REFERENCE UNITS RANGE LAB TROP(LOINC) 0.015-0.045 ng/ml High Troponin I 0.273 Performed By: #### TROP #### [facility] [address] [place] [address] MDRD GFR Collected: 11/10/2017 Status: F Source: [facility] 4:30 AM HEALTH SYSTEM REPOSITORY TYPE CODE TESTS RESULT OUT OF RANGE REFERENCE UNITS LAB GFRFN(LOINC >60mL/min/1.73m ) 2 eGFR 24.39 Result Comment: If the patient is , multiply the result by 1.210. Performed By: #### GFR #### [facility] [address] [place] [address] BRIEF OP NOT Observed: 11/09/2017 Status: COMPLETED Source: [place] 4:09 PM CLINIC OTHER CAMPUS REPOSITORY O ID: [id number] Author: Ross Morgan Service: Interventional Cardiology Author Type: Physician Type: Brief Op Note Filed: 11/09/2017 4:26 PM Note Text: CARDIAC CATHETERIZATION REPORT PATIENT NAME: Angie Dixon SERVICE DATE: 11/09/2017 SERVICE TIME: 2:30 PM Valve Inserter: Dr. Scott Sanford Attending: Ross Morgan RECOMMENDATIONS: [...] PM ACT Collected: 11/09/2017 Status: F Source: [facility] 2:21 PM HEALTH SYSTEM REPOSITORY TYPE CODE TESTS RESULT OUT OF RANGE REFERENCE UNITS LAB ACT(LOINC) 89-169 sec High ACT 325 Performed By: #### ACT #### [address] [address] % O2HB (ARTERIAL) Collected: 11/09/2017 Status: F Source: [facility] 1:49 PM HEALTH SYSTEM REPOSITORY TYPE CODE TESTS RESULT OUT OF RANGE REFERENCE UNITS LAB O2HBA(LOINC 92.00-100.00 % ) Low % O2HB 86.30 (arterial) Performed By: #### O2HBA #### [address] [address] % O2HB (VENOUS) Collected: 11/09/2017 Status: F Source: [facility] 1:48 PM HEALTH SYSTEM REPOSITORY TYPE CODE TESTS RESULT OUT OF RANGE REFERENCE UNITS LAB O2HBV(LOINC 40.00-70.00 % ) % O2HB 50.30 (venous) Performed By: #### O2HBV #### [facility] [address] [place] [id number] PROGRESS Observed: 11/09/2017 Status: COMPLETED Source: [place] 9:44 AM CLINIC OTHER CAMPUS REPOSITORY [facility]NO ID: [id number] Author: Norman Saldana Service: Interventional Cardiology Author [...] 2006 and PCI with stents in 2012 [id number]. He was transferred from [facility] where he presented with complaints of [...] 11/09/2017 HDL Cholesterol 46 11/09/2017 LDL Chol, [place] 152 11/09/2017 Cholesterol, Total 235 11/09/2017 Assessment/Plan [...] exertion last evening -Troponin peak 0.48 at [place] -Will have [facility] today, IVUS evaluation of LM into LCX, possible rotational laser atherectomy. Educated on procedure and post-procedure, including activity, restrictions, medications, and follow up. Risk, benefit, and alternative to cardiac catheterization +/- PCI with possible need for prolonged dual antiplatelet therapy were discussed with patient. Acknowledging risk and benefit (including , NE, CVA, urgent CABG, renal failure, hemorrhage, etc.) Patient agrees with plan and verbalized understanding. 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 ICM: -Echocardiogram done at [place]; results pending -EF on [facility] August 2017 = 30% Newly diagnosed Pulmonary [...] pressure, can consider up-titration of medications after [facility] Medication and Non-Pharmacologic VTE Prophylaxis/Anticoagulants Anticoagulant AND Antiplatelet Medications Start Dose Route Frequency Ordered Stop 11/09/17 0710 heparin 1,000 Units in D5W 250 mL (Tool Grinder Set Up Operator Gear Procedures) 1,000 Units IArt ONE TIME 11/09/17 0710 -- 11/09/17 0710 heparin 3,000 Units in NaCl 0.9% 500 mL irrigation (Tool Grinder Set Up Operator Gear Procedures) 3,000 Units IRRIGATION ONE TIME 11/09/17 0710 -- 11/08/17 1730 clopidogrel 75 mg tab(s) (PLAVIX) 75 mg ORAL DAILY 11/08/17 172 -- 11/08/17 173 aspirin, enteric coated 81 mg tab(s) 81 mg ORAL DAILY 11/08/17 172 -- 11/08/17 173 heparin iv infusion (LOW DOSE ACS/NOMOGRAM) 25,000 units in NaCl 0.45% 250 mL PREMIX (Heparin Infusion + Rate Change Bolus) 0-30 mL/hr 0-3,000 Units/hr INTRAVENOUS CONTINUOUS 11/08/17 172 -- @MARCELO BOURNE([id number])@ VTE Prophylaxis: VTE prophylaxis appropriate SIGNATURE: Norman Saldana APRN.CNP PATIENT NAME: Angie Dixon DATE: November 09, 2017 TIME: 9:44 AM PAGER/CONTACT #: [phone] ACTIVATED PTT Collected: 11/09/2017 Status: F Source: [facility] 8:15 AM HEALTH SYSTEM REPOSITORY TYPE [...] laboratory APTT reagent in use throughout the [facility]. Performed By: #### APTT #### [facility] [address] [place] [address] HEMOGRAM Collected: 11/09/2017 Status: F Source: [employer] [facility] 12:45 AM HEALTH SYSTEM REPOSITORY TYPE [...] MPV 11.4 Performed By: #### CBC1 #### [facility] [address] [address] ACTIVATED PTT Collected: 11/09/2017 Status: F Source: [facility] 12:[address] [place] [address] SYSTEM REPOSITORY TYPE CODE TESTS RESULT OUT [...] laboratory APTT reagent in use throughout the [facility]. Performed By: #### APTT #### [facility] [address] [address] LIPID PROFILE Collected: 11/09/2017 Status: F Source: [facility] 12:[address] [place] [address] SYSTEM REPOSITORY TYPE CODE TESTS RESULT OUT [...] Triglyceride >400 Performed By: #### LIPD2 #### [facility] [address] [address] TROPONIN I Collected: 11/09/2017 Status: F Source: [facility] 12:45 AM HEALTH SYSTEM REPOSITORY TYPE CODE TESTS RESULT OUT OF REFERENCE UNITS RANGE LAB TROP(LOINC) 0.015-0.045 ng/ml High Troponin I 0.332 Performed By: #### TROP #### [facility] [address] [address] CHEST 1 VIEW Observed: 11/08/2017 Status: F Source: [employer] [facility] 8:48 PM HEALTH SYSTEM REPOSITORY Performed at [facility] APPROVED BY: Hemant Baxter MD EXAMINATION: CHEST [...] LUNG VENTILATION Observed: 11/08/2017 Status: F Source: [place] 8:23 PM HEALTH SYSTEM REPOSITORY Performed at [facility] APPROVED BY: JOSELIN HERNANDEZ MD VENTILATION-PERFUSION LUNG [...] X-RAY. PROGRESS Observed: 11/08/2017 Status: COMPLETED Source: [place] 8:21 PM [facility] OTHER CAMPUS REPOSITORY O ID: [id number] Author: Abel Figueroa (Rt) Service: Radiology Author Type: Pattern Mechanic Type: Progress Notes Filed: 11/08/2017 8:22 PM [...] has been calibrated to be traceable to [employer]. An eGFR <60 mL/min/1.73m2 for >3 months [...] applicable IV SITE: Inpatient - refer to [facility] documentation POST EXAM PIV STATUS: Left in [...] safety can be found using this link: [email or web address]%[email or web address] SIGNATURE: RT Henry PATIENT NAME: Angie Dixon DATE: November 08, 2017 TIME: 8:21 PM PAGER/CONTACT #: HISTORY PHYSICAL Observed: 11/08/2017 Status: COMPLETED Source: [place] 7:13 PM CLINIC OTHER CAMPUS REPOSITORY [facility] ID: [id number] Author: Ross Morgan Service: Interventional Cardiology Author Type: Physician Type: HANDP Filed: 11/08/2017 7:24 PM Note Text: HISTORY AND PHYSICAL EXAMINATION SERVICE DATE: 11/08/2017 SERVICE TIME: 4:30 PM PRIMARY CARE PHYSICIAN: Ramo Moreira III MD Subjective HPI This is a 72-year-old gentleman with a history of coronary artery disease and coronary bypass surgery in [address] Jayy Sanford from [facility]. The patient underwent catheterization in August [...] Diagnosis Date - Atherosclerotic heart disease of [place] coronary artery with other forms of angina pectoris ([facility]) - BPH (benign prostatic hypertrophy) with urinary obstruction 07/09/2014 - CAD (coronary artery disease) - Chronic renal insufficiency - DVT of upper extremity (deep vein thrombosis) ([facility]) - Esophageal reflux - Essential hypertension, benign - Gout 04/22/2010 - Hx of CABG 3 - Iatrogenic pulmonary embolism and infarction ([facility]) - LV dysfunction - NSTEMI (non-ST elevated myocardial infarction) ([facility]) 2012 - Other and unspecified hyperlipidemia - Type 2 diabetes mellitus with stage 4 chronic kidney disease ([facility]) 06/05/2015 - Unequal leg length (acquired) PAST SURGICAL HISTORY Procedure Laterality Date - APPENDECTOMY - CABG, ARTERY-VEIN, THREE 09/2006 CABG, three grafts - COLONOSCOP W/ OR W/O [facility] SPEC 01/22/15 Colonoscopy - COLOSTOMY 2007 revision - KNEE SCOPE,DIAGNOSTIC Arthroscopy, knee - REPAIR ING HERNIA,5+Y/O,REDUCIBL 2008 Hernia repair, inguinal - STENT PLACEMENT 10/2012 Heart stent - STENT PLACEMENT 11/05/2013 2 heart stents placed at [facility] - SUTURE LRG INTEST W COLOSTOMY 09/2006 [...] Disp: 30 g Rfl: 1 Taking Insulin [place], Disposable, (PEN NEEDLE) 29 gauge X 1/2 [...] Newly diagnosed pulmonary hypertension on echocardiogram at [facility]: We'll check a VQ scan this evening given the risk for pulmonary embolus. If low risk intermediate risk and may consider right heart catheterization tomorrow for further evaluation of pulmonary pressures. SIGNATURE: Ross Morgan MD PATIENT NAME: Angie Dixon DATE: November 08, 2017 TIME: 7:13 PM PAGER/CONTACT #: [email or web address] Collected: 11/08/2017 Status: F Source: [facility] 6:04 PM HEALTH SYSTEM REPOSITORY TYPE CODE TESTS [...] MPV 11.3 Performed By: #### CBC1 #### [place] [address] ACTIVATED PTT Collected: 11/08/2017 Status: F Source: [facility] 6:[facility] REPOSITORY TYPE CODE TESTS RESULT [...] laboratory APTT reagent in use throughout the [facility]. Performed By: #### APTT #### [place] [id number] PROTIME Collected: 11/08/2017 Status: F Source: [address] SYSTEM REPOSITORY TYPE CODE TESTS RESULT OUT OF REFERENCE UNITS RANGE LAB PTI(LOINC) 9.7-13.0 sec Prothrombin Time 10.8 LAB INR(LOINC) 0.90-1.30 INR 0.98 Result Comment: Note: Reference Range Change Vitamin K Antagonist (VKA) Therapeutic Range: INR 2 to 3 (Target INR of 2.5) Note: For patients treated with VKA drugs, such as warfarin, the [employer] 2012 Guideline recommends [...] 70: 252-289 Performed By: #### PT #### [place] [address] TROPONIN I Collected: 11/08/2017 Status: F Source: [facility] 6:04 PM HEALTH SYSTEM REPOSITORY TYPE CODE TESTS RESULT OUT OF REFERENCE UNITS RANGE LAB TROP(LOINC) 0.015-0.045 ng/ml High Troponin I 0.385 Performed By: #### TROP #### [place] [address] EKG (AK,AV,EU,FV,HL,DAPHNE,MM,SP) Observed: Status: F Source: [place] 11/08/2017 5:32 PM CLINIC OTHER CAMPUS REPOSITORY NAME : ANGIE DIXON PID : [id number] : 1945 Gender : Male Race : ORD : [id number] Procedure Date : Nov 08 2017 17:32 [...] ms QTC Calculation(Bezet) : 474 ms P Stuart : 51 degrees R Stuart : 54 degrees T Stuart : 249 degrees Test Reason : Chest Pain Location : 42 : [id number] [id number] Overread By : DO Steve Jeffrey Editted By : DO Steve Jeffrey Referred By : ROSS MORGAN Acquired by : 426, NURSING PROG Observed: 11/08/2017 Status: COMPLETED Source: [place] 3:42 PM CLINIC OTHER CAMPUS REPOSITORY [facility] ID: [id number] Author: Emily (Rn) LEE Miller Service: (none) Author Type: Registered Nurse Type: Nursing Progress Note Filed: 11/08/2017 3:43 PM Note Text: Patient arrived from [place], continued heparin gtt at 8ml/hr. ECHOCARDIOGRAM COMPLETE Observed: 11/08/2017 Status: F Source: [facility] [place] 2:57 PM [facility] REPOSITORY [facility] Cardiovascular Services [address] [place] [address] Echo Complete 11/08/17821 MR#: [id number] Acct: [id number] Name: ANGIE DIXON Rep #: [id number] : 1945 72 From: Jayy Sanford MD [...] E' Johanny: 8.3 cm/sec Med Peak E' Johanny: 3.7 cm/sec MV A max johanny: 96.2 [...] PI end-d johanny: 209.5 cm/sec TR max jhoanny: 373.0 cm/sec TR max P.7 mmHg Interpretation [...] Performed By: Yael Atkinson, ALETHEA, RVT 11/08/17 1456 Date Jayy Sanford MD CC: Carmen Hogan; Ross Ackerman MD; Ramo Moreira III, MD Date Dictated: 11/08/17821 Date Transcribed: 11/08/171455 Manager Lvn: Signed PARTIAL THROMBOPLAST Collected: 11/08/2017 Status: F Source: [place] TIME 1:30 PM [facility] REPOSITORY TYPE CODE TESTS RESULT OUT OF REFERENCE UNITS RANGE LAB L300.4310 24.1-36.2 Seconds High PTT 77.5 Performed By: #### L300.4310 #### [facility] Laboratory [address] [place], [address] BEDSIDE GLUCOSE Collected: 11/08/2017 Status: F Source: [place] 12:25 PM [facility] REPOSITORY TYPE CODE TESTS RESULT OUT OF RANGE REFERENCE UNITS LAB L501.080 70-110 mg/dL Normal BEDSIDE GLU 99 Result Comment: MANAGEMENT OF PATIENT CARE PER NURSING PROTOCOL Performed By: #### L501.080 #### [facility] Laboratory Point of Care [address] [place] [address] CONSULTATION Observed: 11/08/2017 Status: F Source: [place] 10:15 AM [facility] REPOSITORY [facility] Medical Records Department [address] [place] [address] Consultation 11/08/17 0846 MR#: [id number] Acct: [id number] Name: ANGIE DIXON Rep #: [id number] : 1945 72 From: Pablo Khan MD PCP: Ramo Moreira III, MD Status: ADM IN Y Location: ICU [id number] Problem List (1) NSTEMI (non-ST elevated myocardial infarction) Status: Acute (2) CAD (coronary artery disease) Status: Chronic (3) S/P PTCA (percutaneous transluminal coronary angioplasty) Status: Chronic (4) History of coronary artery bypass graft x 3 Status: Chronic Comment: CHARLES to LAD, SVG to RCA and SVG to CX per Dr. 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 The [...] ICD placement approximately 1 month ago at [facility]. He states his wound is healed well and his ICD has not discharged. He is also undergone previous noninvasive and invasive cardiovascular evaluation at [facility] in August of this year. [...] SVG to CX per Dr. Buitrago @ [facility] History of left heart catheterization (Chronic 09/06/17) Atherosclerotic heart disease of [place] coronary artery with other forms of angina [...] (Auto) 56.9, Lymph % (Auto) 10.9 L, Rice % (Auto) 8.4, Eos % (Auto) 22.6 [...] official report Assessment/Plan 1. Non-ST segment elevation NE The patient presents with findings compatible with an acute non-ST segment elevation NE. His cardiac enzymes and ECGs have been [...] has a primary prevention ICD placed at [facility] on 10/05/2017. His incision site [...] patients case was discussed with his primary newcomer hostess, Dr. Sanford. S/P review of the case he recommended transfer to a tertiary care center for high risk coronary artery evaluation / intervention. He arranged for the patient to be transferred to [facility] for further evaluation and care. Comment: The [...] DISCHARGE SUMMARY Observed: 11/08/2017 Status: F Source: [facility] [place] 10:05 AM [facility] REPOSITORY [facility] Medical Records Department [address] [place] [address] Discharge Summary 11/08/17 1002 MR#: [id number] Acct: [id number] Name: ANGIE DIXON Rep #: [id number] : 1945 72 From: Ross Ackerman MD PCP: Ramo Moreira III, MD Status: ADM IN Y Location: ICU [place] [address] Discharge Date and Diagnosis - Problem List [...] SVG to CX per Dr. Buitrago @ [facility] History of left heart catheterization (Chronic 09/06/17) Atherosclerotic heart disease of [place] coronary artery with other forms of angina [...] elevated troponin an assessment of acute non-ST NE made. Patient admitted to the intensive care unit with consultation placed to cardiology 1. Acute non-STEMI: Patient has been admitted to the intensive care unit managed per protocol with systemic anticoagulation with heparin dual antiplatelet with aspirin and Plavix, hydralazine (patient is allergic to KIRTI inhibitors and statins) with consultation placed to cardiology Case was discussed with Dr. 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 Hypertension-blood pressure controlled, home medications continued [...] III, MD [Primary Care Provider] - Disposition: Acute care Hospital - [facility] Minutes spent on discharge:: 35 Patient Condition:: [...] Pedro at discharge?: Yes Done w/ Acute NE measure.: Yes Code Visit Inpatient E AND M: [id number] Disch Hosp 11/08/17 1005 <Electronically signed by Ross Ackerman MD> Date Ross Ackerman MD Cosigner Signature (if applicable): Date CC: Ross Ackerman MD; Ramo Moreira III, MD Signed DISCHARGE INSTRUCTION Observed: 11/08/2017 Status: F Source: [place] [place] 10:02 AM [facility] REPOSITORY [facility] Medical Records Department [address] [place] [address] Instructions for Home/Discharge Instructions 11/08/17 1001 MR#: [id number] Acct: [id number] Name: ANGIE DIXON Rep #: [id number] : 1945 72 From: Ross Ackerman MD [...] 11/08/2017 Status: F Source: [place] 6:47 AM [facility] REPOSITORY TYPE CODE TESTS RESULT OUT OF RANGE REFERENCE UNITS LAB L501.080 70-110 mg/dL Normal BEDSIDE GLU 88 Result Comment: MANAGEMENT OF PATIENT CARE PER NURSING PROTOCOL Performed By: #### L501.080 #### [facility] Laboratory Point of Care [address] [place] [address] PARTIAL THROMBOPLAST Collected: 11/08/2017 Status: F Source: [place] TIME 5:00 AM [facility] REPOSITORY Order Comment: REDRAW. PREVIOUS SPECIMEN REJECTED DUE TO QNS. 11/08/17 0424 Beatrice Stark. TYPE CODE TESTS RESULT OUT OF REFERENCE UNITS RANGE LAB L300.4310 24.1-36.2 Seconds High alert PTT 246.8 Result Comment: CRITICAL VALUE VERIFIED. CALLED TO [facility] ICU 11/08/17 0538 Beatrice Stark. RESULTS READ BACK BY SAME . Performed By: #### L300.4310 #### [facility] Laboratory [address], [address] TROPONIN-I Collected: 11/08/2017 Status: F Source: [place] 4:05 AM [facility] REPOSITORY Order Comment: 'TROP' Serial specimen #1, #2 or #3: 3 'TROP' Serial specimen #1, #2, #3, or #4: 3 TYPE CODE TESTS RESULT OUT OF RANGE REFERENCE UNITS LAB L501.4010 <0.045 ng/mL High 0.473 TROPONIN-I Result Comment: TROPONIN-I EXPECTED VALUES <0.045 Negative 0.045 - 0.590 Consistent with Cardiac Damage > OR = 0.600 Critical Value Not every elevated troponin is indicative of NE. These values should be used with clinical judgement in examining the patient's clinical picture for diagnosis. To establish a diagnosis of NE versus myocardial injury, there must be a demonstrated rise and/or fall in the troponin values, in addition to ischemic symptoms, EKG changes, new regional wall motion abnormality, and/or angiographical evidence. PLEASE NOTE: REFERENCE RANGES EDITED 17 Performed By: #### L501.4010 #### [facility] Laboratory [address], [address] CBC-COMPLETE BLOOD CNT Collected: 11/08/2017 Status: F Source: [place] NO DIFF 4:05 AM [facility] REPOSITORY TYPE CODE TESTS RESULT OUT OF [...] MPV 11.0 Performed By: #### L100.0500 #### [facility] Laboratory [address] [place], [address] BASIC METABOLIC Collected: 11/08/2017 Status: F Source: [place] PROFILE (BMP) 4:05 AM [facility] REPOSITORY TYPE CODE TESTS RESULT OUT OF [...] 10 Performed By: #### L500.2500, L500.4100 #### [facility] [address] [place], [address] LIPID PROFILE Collected: 11/08/2017 Status: F Source: [place] 4:05 AM [facility] REPOSITORY TYPE CODE TESTS RESULT OUT OF [...] 16 Performed By: #### L500.2500, L500.4100 #### [facility] [address] [place], [address] CRP, HIGH SENSITIVITY Collected: 11/08/2017 Status: F Source: [place] [facility] 4:05 AM [facility] REPOSITORY Order Comment: ADD ON TYPE CODE TESTS RESULT OUT OF RANGE REFERENCE UNITS LAB L501.6750 mg/L High CRP HIGH 8.14 SENS Result Comment: Low Relative Risk of CVD <1.0 mg/L Average Relative Risk of CVD 1.0 - 3.0 mg/L High Relative Risk of CVD >3.0 mg/L Performed By: #### L501.6750 #### [facility] Laboratory [address] [place], [address] HOSP Observed: 11/08/2017 Status: COMPLETED Source: [place] 12:00 AM CLINIC OTHER CAMPUS REPOSITORY Patient:Angie Dixon MRN: <[id number]> Height:5' 7(1.702 m) Weight:170 lb (77.111 kg) [...] 4 mg tablet clotrimazole-betamethasone (LOTRISONE) cream Insulin [place], Disposable, (PEN NEEDLE) 29 gauge X 1/2 ndle aspirin, enteric coated (ASPIR-LOW) 81 mg EC tablet clopidogrel (PLAVIX) 75 mg tablet mirtazapine 15 mg tablet Admission/Clinic Administered Medications as of 11/09/17: NaCl 0.9% iv infusion heparin 1,000 Units [...] [N40.1, N13.8] Chronic depression [F32.9] Atherosclerosis of [place] coronary artery of [place] heart with angina pectoris (HCC) [I25.119] Hyperlipidemia LDL goal <100 [E78.5] 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] Type 2 diabetes mellitus with stage 4 chronic kidney disease (HCC) [E11.22, N18.4] Exposure to Agent Lea [Z77.098] History of colostomy [IED1921] History of gout [Z87.39] History of hypertension [Z86.79] History of pulmonary embolism [Z86.711] Peripheral vascular disease, unspecified (HCC) [I73.9] NSTEMI (non-ST elevated myocardial infarction) ([facility]) [I21.4] Allergies: Atorvastatin Calcium Covera-Hs [Verapamil Hcl] Lisinopril Niaspan [Niacin] Date Verified: 11/09/17 Lab Values Lab Value Units Date High Low GAGE* 28.3 % 11/09/2017 51.0 40.1 Progress Notes (): Emily Miller, RN, RN 11/08/2017 3:43 PM Signed Patient arrived from [place], continued heparin gtt at 8ml/hr. Ross Morgan MD 11/08/2017 7:24 PM Signed HISTORY AND PHYSICAL EXAMINATION SERVICE DATE: 11/08/2017 SERVICE TIME: 4:30 PM PRIMARY CARE PHYSICIAN: Ramo Moreira III MD Subjective HPI This is a 72-year-old gentleman with a history of coronary artery disease and coronary bypass surgery in [address] Jayy Sanford from [facility]. The patient underwent catheterization in August [...] Diagnosis Date - Atherosclerotic heart disease of [place] coronary artery with other forms of angina pectoris ([facility]) - BPH (benign prostatic hypertrophy) with urinary obstruction 07/09/2014 - CAD (coronary artery disease) - Chronic renal insufficiency - DVT of upper extremity (deep vein thrombosis) ([facility]) - Esophageal reflux - Essential hypertension, benign - Gout 04/22/2010 - Hx of CABG 3 - Iatrogenic pulmonary embolism and infarction ([facility]) - LV dysfunction - NSTEMI (non-ST elevated myocardial infarction) ([facility]) 2012 - Other and unspecified hyperlipidemia - Type 2 diabetes mellitus with stage 4 chronic kidney disease ([facility]) 06/05/2015 - Unequal leg length (acquired) PAST SURGICAL HISTORY Procedure Laterality Date - APPENDECTOMY - CABG, ARTERY-VEIN, THREE 09/2006 CABG, three grafts - COLONOSCOP W/ OR W/O [facility] SPEC 01/22/15 Colonoscopy - COLOSTOMY 2007 revision - KNEE SCOPE,DIAGNOSTIC Arthroscopy, knee - REPAIR ING HERNIA,5+Y/O,REDUCIBL 2008 Hernia repair, inguinal - STENT PLACEMENT 10/2012 Heart stent - STENT PLACEMENT 11/05/2013 2 heart stents placed at [facility] - SUTURE LRG INTEST W COLOSTOMY 09/2006 [...] Disp: 30 g Rfl: 1 Taking Insulin [place], Disposable, (PEN NEEDLE) 29 gauge X 1/2 [...] Newly diagnosed pulmonary hypertension on echocardiogram at [facility]: We'll check a VQ scan this evening given the risk for pulmonary embolus. If low risk intermediate risk and may consider right heart catheterization tomorrow for further evaluation of pulmonary pressures. SIGNATURE: Ross Morgan MD PATIENT NAME: Angie Dixon DATE: November 08, 2017 TIME: 7:13 PM PAGER/CONTACT #: RT Henry, Abel 11/08/2017 8:22 PM Signed RADIOLOGY SERVICE PROGRESS [...] applicable IV SITE: Inpatient - refer to [facility] documentation POST EXAM PIV STATUS: Left in for next appointment PROCEDURE TYPE: VQ Scan: 0.8 mCi of Tc99m DTPA was inhaled. 3 mCi of Tc99m MAA was administered IV. ADMINISTRATION TIME: 820 PATIENT DISCHARGED TO: Patient taken to IP transport area for return to [facility]/ICU/ED. A Diagnostic radioactive procedure has taken place, with no further precautions necessary other than routine body substance precautions. More information regarding radiation safety can be found using this link: [email or web address]%20Nuclear%20Medicine%[email or web address] SIGNATURE: RT Henry PATIENT NAME: Angie [...] 2006 and PCI with stents in 2012 [id number]. He was transferred from [facility] where he presented with complaints of [...] 11/09/2017 HDL Cholesterol 46 11/09/2017 LDL Chol, [place] 152 11/09/2017 Cholesterol, Total 235 11/09/2017 Assessment/Plan [...] exertion last evening -Troponin peak 0.48 at [place] -Will have [facility] today, IVUS evaluation of LM into LCX, possible rotational laser atherectomy. Educated on procedure and post-procedure, including activity, restrictions, medications, and follow up. Risk, benefit, and alternative to cardiac catheterization +/- PCI with possible need for prolonged dual antiplatelet therapy were discussed with patient. Acknowledging risk and benefit (including , NE, CVA, urgent CABG, renal failure, hemorrhage, etc.) Patient agrees with plan and verbalized understanding. 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 ICM: -Echocardiogram done at [place]; results pending -EF on [facility] August 2017 = 30% Newly diagnosed Pulmonary [...] pressure, can consider up-titration of medications after C Medication and Non-Pharmacologic VTE Prophylaxis/Anticoagulants Anticoagulant AND Antiplatelet Medications Start Dose Route Frequency Ordered Stop 11/09/17 0710 heparin 1,000 Units in D5W 250 mL (Tool Grinder Set Up Operator Gear Procedures) 1,000 Units IArt ONE TIME 11/09/17 0710 -- 11/09/17 0710 heparin 3,000 Units in NaCl 0.9% 500 mL irrigation (Tool Grinder Set Up Operator Gear Procedures) 3,000 Units IRRIGATION ONE TIME 11/09/17 [...] 0-3,000 Units/hr INTRAVENOUS CONTINUOUS 11/08/17 1724 -- @MARCELO TAYLA([id number],1)@ VTE Prophylaxis: VTE prophylaxis appropriate SIGNATURE: Norman Saldana APRN.CNP PATIENT NAME: Angie Dixon DATE: November 09, 2017 TIME: 9:44 AM PAGER/CONTACT #: [phone] Progress Notes ([facility]): Cailin Ballard Psr 10/18/2017 12:14 PM Signed [...] taking this medication instead? Please send to [facility] in [place]. Previous Version Ramo Moreira III MD 10/25/2017 [...] AND PHYSICAL Observed: 11/07/2017 Status: F Source: [facility] [place] EXAM 11:39 PM [facility] REPOSITORY [facility] Medical Records Department [address] [place] [address] History and Physical 11/07/17 2141 MR#: [id number] Acct: [id number] Name: ANGIE DIXON Rep #: [id number] : 1945 72 From: Carmen Hogan PCP: Ramo Moreira III, MD Status: ADM IN Y Location: ICU [place] [address] Problem List (1) NSTEMI (non-ST elevated myocardial [...] SVG to CX per Dr. 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 Buitrago @ [facility] History of left heart catheterization (Chronic 09/06/17) Atherosclerotic heart disease of [place] coronary artery with other forms of angina [...] cardiomyopathy (Chronic) I25.5 Atherosclerotic heart disease of [place] coronary artery with other forms of angina [...] SVG to CX per Dr. Buitrago @ [facility] History of left heart catheterization (Chronic) Onset [...] placement on 10/05/17 who presents to the [facility] ED on 11/07/17 with history [...] drip. Code Visit Inpatient E AND M: 57573 Init Hosp L3 11/07/17 4137 <Electronically signed by Carmen Hogan > Date Carmen Hogan Cosigner Signature: Date (if applicable) CC: Carmen Hogan; Ramo Moreira III, MD Signed Livan R STAPH AUREUS Collected: 11/07/2017 Status: F Source: [place] DNA BY PCR 11:20 PM [facility] REPOSITORY Order Comment: Order Date: 11/07/17 TYPE CODE TESTS RESULT OUT OF RANGE REFERENCE UNITS LAB L8200.1100 Negative Normal MRSA Negative RESULT Performed By: #### L8200.1000 #### [facility] [address] [place], [address] EMERGENCY DEPARTMENT Observed: 11/07/2017 Status: F Source: [place] SUMMARY 9:58 PM [facility] REPOSITORY [facility] Medical Records Department [address] [place] [address] Emergency Department Summary 11/07/17 2152 MR#: [id number] Acct: [id number] Name: ANGIE DIXON Rep #: [id number] : 1945 72 From: Tarun Barajas MD PCP: Ramo Moreira III, MD Status: REG ER - ER Visit Summary Date of Service: 11/07/17 Chief Complaint: Chest pain History of Present Illness: The patient is a 72 M with history of ischemic cardiomyopathy, NE, type 2 diabetes, hypertension, hypercholesterolemia, end-stage renal disease and PE presents with 1+ month of intermittent exertional chest pain. He has had a couple episodes that is awakened him from sleep. He did not notify his newcomer hostess Dr. Sanford. This evening he developed severe [...] Plan: Admit CCU acute coronary syndrome/non-ST elevation NE Disposition: Admit CCU Impression: Acute coronary syndrome/non-ST elevation NE End-stage renal disease Hyperglycemia type II diabetic History of ischemic cardiomyopathy Hypertension hypertensive patient This note was generated with TouchTen dictation software. It may contain incorrect words, [...] your Primary Care Provider. Call [facility] ([phone]) or report to the closest Emergency Room. Call 911 if necessary. 11/07/17 2158 <Electronically signed by Tarun Barajas MD> Date Tarun Barajas MD Cosigner Signature (If Indicated): Date CC: Jayy Sanford MD; Ramo Moreira III, MD BASIC METABOLIC Collected: 11/07/2017 Status: F Source: [place] PROFILE (BMP) 7:05 PM [facility] REPOSITORY TYPE CODE TESTS RESULT OUT OF [...] 11 Performed By: #### L500.2500, L501.4010 #### [facility] [address], [address] TROPONIN-I Collected: 11/07/2017 Status: F Source: [place] 7:05 PM [facility] REPOSITORY TYPE CODE TESTS RESULT OUT OF RANGE REFERENCE UNITS LAB L501.4010 <0.045 ng/mL High 0.469 TROPONIN-I Result Comment: TROPONIN-I EXPECTED VALUES <0.045 Negative 0.045 - 0.590 Consistent with Cardiac Damage > OR = 0.600 Critical Value Not every elevated troponin is indicative of NE. These values should be used with clinical judgement in examining the patient's clinical picture for diagnosis. To establish a diagnosis of NE versus myocardial injury, there must be a demonstrated rise and/or fall in the troponin values, in addition to ischemic symptoms, EKG changes, new regional wall motion abnormality, and/or angiographical evidence. PLEASE NOTE: REFERENCE RANGES EDITED 17 Performed By: #### L500.2500, L501.4010 #### [facility] [place], [address] CBC W/DIFF, AUTOMATED Collected: 11/07/2017 Status: C Source: [place] 7:05 PM [facility] REPOSITORY TYPE CODE TESTS RESULT OUT OF [...] as: June Performed By: #### L100.0100 #### [facility] [address] [place], [address] PARTIAL THROMBOPLAST Collected: 11/07/2017 Status: F Source: [place] TIME 7:05 PM [facility] REPOSITORY TYPE CODE TESTS RESULT OUT OF RANGE REFERENCE UNITS LAB L300.4310 24.1-36.2 Seconds Normal PTT 30.1 Performed By: #### L300.4310 #### [facility] [address] [place], [address] MAGNESIUM Collected: 11/07/2017 Status: F Source: [place] 7:05 PM [facility] REPOSITORY TYPE CODE TESTS RESULT OUT OF RANGE REFERENCE UNITS LAB L501.5200 1.6-2.6 mg/dL Normal MG 2.2 Performed By: #### L501.5200 #### [facility] [address] [place], [address] CHEST 1 VIEW Observed: 11/07/2017 Status: F Source: [place] (PORTABLE) 6:56 PM [facility] REPOSITORY [facility] Imaging Services [address] [place] [address] Chest 1 View (Portable) MR#: [id number] Acct: [id number] Name: ANGIE DIXON Rep #: [id number] : 1945 M 72 From: Shai Heredia MD PCP: Ramo Moreira III, MD Status: REG ER Study: Chest 1 View (Portable) Date of Exam: 11/07/17 Exam# [id number] Ordering Dr: Tarun Barajas MD STUDY: X-RAY CHEST REASON FOR EXAM: Male, 72 years old. SOB AND CHEST PAINS. HX OF TRIPLE BYPASS IN 2006, AND PLACED 3 STENTS WELL PER PATIENT. TECHNIQUE: Single frontal view of the chest. COMPARISON: 8.24.18 FINDINGS: Chronic appearing increased interstitial lung markings. [...] Ramo Moreira III, MD; Tarun Barajas MD Manager Lvn: Signed HANS Observed: 10/18/2017 Status: COMPLETED Source: [place] 12:00 AM [facility] REPOSITORY Telephone (FAMPWS) ANGIE DIXON ([id number]) 1945 M Date Time Provider Department 10/18/17 [facility] III [facility] During your visit today, we recorded the [...] taking this medication instead? Please send to [facility] in [place]. 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 [place] [address] Pacemaker Check Date of Service: 10/13/171544 MR#: [id number] Acct: [id number] Name: ANGIE DIXON Rep #: [id number] : 1945 From: Nat Persaud Age/Sex: 72/M Location: [facility] Status: Signed Billing Codes ICD Device Billing: ICD Dev Prog Eval, Single 10/13/178 <Electronically signed by Nat Persaud > Date Nat Persaud 10/17/17 0930<Electronically signed by Tiffanie FUNK> [facility] Signature: Date (if applicable) Tiffanie Donovan CC: BEDSIDE GLUCOSE Collected: 10/06/2017 Status: F Source: [place] 8:06 AM [facility] REPOSITORY TYPE CODE TESTS RESULT OUT OF REFERENCE UNITS RANGE LAB L501.080 70-110 mg/dL High BEDSIDE GLU 121 Result Comment: MANAGEMENT OF PATIENT CARE PER NURSING PROTOCOL Performed By: #### L501.080 #### [facility] Point of Care [address] [place] [address] HH, HEMOGLOBIN AND Collected: 10/06/2017 Status: F Source: [place] HEMATOCRIT 6:30 AM [facility] REPOSITORY TYPE CODE TESTS RESULT OUT OF RANGE REFERENCE UNITS LAB L100.1300 13.0-16.5 g/dl Low HGB 9.5 LAB L100.1400 40-54 % Low HCT 29.1 Performed By: #### L100.0600 #### [facility] [address] [place], [address] BASIC METABOLIC Collected: 10/06/2017 Status: F Source: [place] PROFILE (BMP) 6:30 AM [facility] REPOSITORY TYPE CODE TESTS RESULT OUT OF [...] GAP 14 Performed By: #### L500.2500 #### [facility] [address] [place], [address] CHEST 1 VIEW Observed: 10/06/2017 Status: F Source: [place] 12:02 AM [facility] REPOSITORY [facility] Imaging Services [address] [place] [address] Chest 1 View MR#: [id number] Acct: [id number] Name: ANGIE DIXON Rep #: [id number] : 1945 M 72 From: Kal Higginbotham MD PCP: Ramo Moreira III, MD Status: REG SDC Study: Chest 1 View Date of Exam: 10/06/17 Exam# [id number] Ordering Dr: Giorgio Joyner MD STUDY: X-RAY [...] Giorgio Joyner MD; Ramo Moreira III, MD Manager Lvn: Signed CHEST PA AND LATERAL Observed: 10/06/2017 Status: F Source: [place] 12:00 AM [facility] Imaging Services [address] [place] [address] Chest PA and Lateral MR#: [id number] Acct: [id number] Name: ANGIE DIXON Rep #: [id number] : 1945 M 72 From: Kal Higginbotham MD PCP: Ramo Moreira III, MD Status: REG SD Study: Chest PA and Lateral Date of Exam: 10/06/17 Exam# [id number] Ordering Dr: Giorgio Joyner MD STUDY: X-RAY [...] Giorgio Joyner MD; Ramo Moreira III, MD Manager Lvn: Signed CHEST 1 VIEW Observed: 10/05/2017 Status: F Source: [place] (PORTABLE) 1:50 PM [facility] REPOSITORY [facility] Imaging Services [address] [place] [address] Chest 1 View (Portable) MR#: [id number] Acct: [id number] Name: ANGIE DIXON Rep #: [id number] : 1945 72 From: Renard Castro MD PCP: Ramo Moreira III, MD Status: REG [facility] Study: Chest 1 View (Portable) Date of Exam: 10/05/17 Exam# [id number] Ordering Dr: Giorgio Joyner MD STUDY: X-RAY [...] Renard Castro MD at 15:13 EDT Tel [phone], Service support , CC: Giorgio Joyner MD; Ramo Moreira III, MD Manager Lvn: Signed OPERATIVE REPORT Observed: 10/05/2017 Status: F Source: [place] 12:36 PM [facility] REPOSITORY [facility] Medical Records Department [address] [place] [address] Operative Report 10/05/17 1234 MR#: [id number] Acct: [id number] Name: ANGIE DIXON Rep #: [id number] : 1945 72 From: Giorgio Joyner MD PCP: Ramo Moreira III, MD Status: REG [facility] Y Location: [facility] Operative Report Date of Procedure: 10/05/17 Preoperative diagnosis implantation of Single chamber, single coil ICD Postoperative diagnosis same as above After informed consent and IV antibiotics the patient was brought to the [place] catheterization laboratory. The left side of the [...] chart documents provided by the device company front office representative procedure summary. 10/05/17 1236 <Electronically signed by Giorgio Joyner MD> Date Giorgio Joyner MD CC: Giorgio Joyner MD; Ramo Moreira III, MD Signed PACEMAKER CHECK Observed: 09/29/2017 Status: F Source: [place] 5:51 PM [facility] REPOSITORY [facility] [address] [facility] [address] [place] [address] Pacemaker Check Date of Service: 09/29/17 1608 MR#: [id number] Acct: [id number] Name: ANGIE DIXON Rep #: [id number] : 1945 From: Nat Persaud Age/Sex: 72/M Location: [facility] Status: Signed Billing Codes Nurse, Teaching, Wound Ck (no charge): Yes 09/29/17 1610 <Electronically signed by Nat Persaud > Date Nat Persaud 09/29/17 1751<Electronically signed by Tiffanie FUNK> Cosigner Signature: Date (if applicable) Tiffanie Donovan CC: CBC-COMPLETE BLOOD CNT Collected: 09/22/2017 Status: F Source: [place] NO DIFF 11:18 AM [facility] REPOSITORY Order Comment: Comments: For ICD implant [...] Performed By: #### L100.0500, L300.3900, L500.2500 #### [facility] [address] [place], [address] PROTHROMBIN TIME W/INR Collected: 09/22/2017 Status: F Source: [place] 11:18 AM [facility] REPOSITORY Order Comment: Comments: For ICD implant Comments: For ICD implant TYPE CODE TESTS RESULT OUT OF RANGE REFERENCE UNITS LAB L300.4150 11.7-14.9 SECONDS Normal PROTIME 13.9 LAB L300.4200 Normal INR 1.1 Performed By: #### L100.0500, L300.3900, L500.2500 #### [facility] [address] [place], [place], [address] BASIC METABOLIC Collected: 09/22/2017 Status: F Source: [place] PROFILE (BMP) 11:18 AM [facility] REPOSITORY Order Comment: Comments: For ICD implant [...] Performed By: #### L100.0500, L300.3900, L500.2500 #### [facility] [address] [place], [place], [address] URINALYSIS, COMPLETE Collected: 09/22/2017 Status: F Source: [place] 11:18 AM [facility] REPOSITORY Order Comment: Comments: For ICD implant Comments: For ICD implant How was Urine Obtained? CUSTOM TAILOR APPRENTICE TO SPECIFY TYPE CODE TESTS RESULT OUT [...] URINE SEEN Performed By: #### L400.0001 #### [facility] [address] [place], [place], [address] CARDIOLOGY VISIT Observed: 09/22/2017 Status: F Source: [place] REPORT 11:00 AM [facility] REPOSITORY [facility] [address] [place] [address] OFFICE VISIT Date of Service: 09/22/17 MR#: [id number] Acct: [id number] Name: ANGIE DIXON Rep #: [id number] : 1945 Provider: Jayy Sanford MD Age/Sex: 72/M Location: [facility] Status: Signed HPI HPI Chief Complaint: Routine [...] Blood Pressure 130/60 Intake Visit Reasons: S/P [facility] PCU Cartridge Filler Required: No Is patient in pain?: No [...] #90 tab 09/08/17 [Rx Confirmed 09/22/17] [facility] Medical History Atherosclerotic heart disease of [place] coronary artery with other forms of angina [...] AND Plan 1. Atherosclerotic heart disease of [place] coronary artery with other forms of angina [...] vis,est,level 3 Diagnoses Atherosclerotic heart disease of [place] coronary artery with other forms of angina pectoris I25.118 History of hyperlipidemia Z86.39 LV dysfunction I51.9 Coding Level of Care Code Off vis,est,level 3 Diagnoses Atherosclerotic heart disease of [place] coronary artery with other forms of angina pectoris I25.118 History of hyperlipidemia Z86.39 LV dysfunction I51.9 09/22/17 1100 <Electronically signed by Jayy Sanford MD> Date Jayy Sanford MD Cosigner Signature: Date (if applicable) CC: Ramo Moreira III, MD 12 LEAD EKG PERFORMED Observed: 09/22/2017 Status: F Source: [place] 10:51 AM [facility] REPOSITORY [facility] [address] [facility] [place] [address] 12 Lead EKG performed by [facility] 09/22/17 1050 MR#: [id number] Acct: [id number] Name: ANGIE DIXON Rep #: [id number] : 1945 72 From: Jayy Sanford MD Attending Dr: Jayy Sanford MD Status: DEP AMB Ordering Dr: Jayy Sanford MD Date: 09/22/17 Location: [facility] Sex: M C Admitted: BMS/12 Lead EKG performed by [facility] ECG Report Interpretation Sinus Rhythm WITHIN NORMAL LIMITSElectronically signed on 01/26/2018 at 15:22 by Jayy Sanford Software Version 8610 01/26/18 1526 Date Jayy Sanford MD CC: Ramo Moreira III, MD Date Dictated: 09/22/17 105 Date Transcribed: 09/22/171049 Manager Lvn: Signed PROGRESS Observed: 09/18/2017 Status: COMPLETED Source: [place] 3:11 PM [facility] REPOSITORY [facility] ID: [id number] Author: Ramo Moreira III Service: (none) Author Type: Physician Type: Progress Notes Filed: 09/18/2017 6:10 PM Note Text: TRANSITION CARE MANAGEMENT (TCM) INITIAL CONTACT Obstetrics And Gynecology Professor Outreach ? Provider Action/FYI: [facility]-admitted (2nd time) on 09/05, discharged on 09/08 ? ? Initial contact with patient post discharge, spoke to patient. Patient identified by name and . ? SUMMARY: -Pt discharged from [facility] on 09/08/2017. -Admitted for: atypical [...] old male following 10, days after the Hospital[facility] Discharge. All records reviewed Patient was started on diltiazem CD 120 mg daily, hydralazine 50 mg twice a day, and Coreg increased 25 mg twice a day. Same other medications HPI: [facility] admission 09/05- for eval of unstable angina and hypertension. Stress echocardiogram did not demonstrate ischemia. Subsequent heart catheterization demonstrated diffuse atherosclerotic disease with possibly significant proximal left main disease with significant calcification. Dr. Sanford (newcomer hostess) suggested referral for Rotoblation for intervention. Home BP: 108/58; 127/63; 117/72; 177/85; PAST MEDICAL HISTORY: PAST MEDICAL HISTORY Diagnosis Date - ASHD (arteriosclerotic heart disease) 2006 CABG 3, NE - BPH (benign prostatic hypertrophy) with urinary obstruction 07/09/2014 - CAD (coronary artery disease) - Chronic renal insufficiency - DVT of upper extremity (deep vein thrombosis) ([facility]) - Esophageal reflux - Essential hypertension, benign - Gout 04/22/2010 - Iatrogenic pulmonary embolism and infarction ([facility]) - NSTEMI (non-ST elevated myocardial infarction) ([facility]) 2012 - Other and unspecified hyperlipidemia - Type 2 diabetes 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 Insulin [place], Disposable, (PEN NEEDLE) 29 gauge X 1/2 [...] Insight: good Judgment: good Non-Invasive Vascular Laboratory [facility] ? Lower Extremity Arterial Duplex Bilateral/Complete Date [...] Technologist: Amy Loza RVT Ordering physician: YINKA RUIZ (PA) ? Interpreting [...] PM CNOV Observed: 09/18/2017 Status: COMPLETED Source: [place] 3:00 PM [facility] RE[facility] Office Visit (FAMPWS) ANGIE DIXON ([id number]) 1945 M Date Time Provider Department 09/18/17 3:00 PM RAMO MOREIRA III FAMPWS During your visit today, we recorded the following information about you: Pulse Respiration Blood pressure Weight 82/minute 18/minute 140/78 77.6 kg Ramo Moreira III MD 09/18/2017 6:10 PM Addendum TRANSITION CARE MANAGEMENT (TCM) INITIAL CONTACT Obstetrics And Gynecology Professor Outreach ? Provider Action/FYI: [facility]-admitted (2nd time) on 09/05, discharged on 09/08 ? ? Initial contact with patient post discharge, spoke to patient. Patient identified by name and . ? SUMMARY: -Pt discharged from [facility] on 09/08/2017. -Admitted for: atypical [...] old male following 10, days after the [facility] Discharge. All records reviewed Patient was started on diltiazem CD 120 mg daily, hydralazine 50 mg twice a day, and Coreg increased 25 mg twice a day. Same other medications HPI: [facility] admission 09/05- for eval of unstable angina and hypertension. Stress echocardiogram did not demonstrate ischemia. Subsequent heart catheterization demonstrated diffuse atherosclerotic disease with possibly significant proximal left main disease with significant calcification. Dr. Sanford (newcomer hostess) suggested referral for Rotoblation for intervention. Home BP: 108/58; 127/63; 117/72; 177/85; PAST MEDICAL HISTORY: PAST MEDICAL HISTORY Diagnosis Date - ASHD (arteriosclerotic heart disease) 2006 CABG 3, NE - BPH (benign prostatic hypertrophy) with urinary obstruction 07/09/2014 - CAD (coronary artery disease) - Chronic renal insufficiency - DVT of upper extremity (deep vein thrombosis) ([facility]) - Esophageal reflux - Essential hypertension, benign - Gout 04/22/2010 - Iatrogenic pulmonary embolism and infarction ([facility]) - NSTEMI (non-ST elevated myocardial infarction) ([facility]) 2012 - Other and unspecified hyperlipidemia - Type 2 diabetes 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 Insulin [place], Disposable, (PEN NEEDLE) 29 gauge X 1/2 [...] Insight: good Judgment: good Non-Invasive Vascular Laboratory [facility] ? 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] Type 2 diabetes mellitus with stage 4 chronic kidney disease, without long-term current use of insulin (HCC) [E11.22, N18.4] Atherosclerosis of [place] coronary artery of [place] heart with angina pectoris (HCC) [I25.119] Prescriptions [...] FOR* Hyperkalemia [E87.5] INVALID FOR*05/25/2017 Atherosclerosis of [place] coronary artery of na*INVALID FOR* Hyperlipidemia LDL goal <100 [E78.5] INVALID FOR* 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] INVALID FOR* Encounter for screening for malignant neoplasm *INVALID FOR*01/22/2015 Type 2 diabetes mellitus with stage 4 chronic k*INVALID FOR* Acute kidney failure, unspecified (HCC) [N17.9] INVALID FOR*09/18/2017 Exposure to Agent Lea [Z77.098] INVALID FOR* History of colostomy [KLH6767] INVALID FOR* History of gout [Z87.39] INVALID [...] 09/14/2017 Status: F Source: [place] 11:30 AM [facility] REPOSITORY TYPE CODE TESTS RESULT OUT OF [...] CO2 23.0 Performed By: #### L500.3600 #### [facility] [address] [place] [address]. [place], [place], [address] PROGRESS Observed: 09/12/2017 Status: COMPLETED Source: [place] 11:30 AM [facility] REPOSITORY O ID: [id number] Author: Roseanne Sarabia MA Service: (none) Author Type: Obstetrics And Gynecology Professor Type: Progress Notes Filed: 09/12/2017 11:32 AM Note Text: TRANSITION CARE MANAGEMENT (TCM) INITIAL CONTACT Obstetrics And Gynecology Professor Outreach Provider Action/FYI: [facility]-admitted (2nd time) on 09/05, discharged on 09/08 Initial contact with patient post discharge, spoke to patient. Patient identified by name and . SUMMARY: -Pt discharged from [facility] on 09/08/2017. -Admitted for: atypical [...] CMA CNPTOUTREACH Observed: 09/12/2017 Status: COMPLETED Source: [place] 12:00 AM [facility] REPOSITORY Patient Outreach (FAMPWS) ANGIE DIXON ([id number]) 1945 M Date Time Provider Department 09/12/17 ROSEANNE SARABIA (ANGELIQUE) ELGINPWS During your visit today, we recorded the following information about you: Roseanne Sarabia CMA, [place] 09/12/2017 11:32 AM Signed TRANSITION CARE MANAGEMENT (TCM) INITIAL CONTACT Obstetrics And Gynecology Professor Outreach Provider Action/FYI: [facility]-admitted (2nd time) on 09/05, discharged on 09/08 Initial contact with patient post discharge, spoke to patient. Patient identified by name and . SUMMARY: -Pt discharged from [facility] on 09/08/2017. -Admitted for: atypical [...] Rash Date Reviewed: 05/25/2017 [facility] HANNAH Sarabia - Fully Assessed Reason [...] DISCHARGE SUMMARY Observed: 09/08/2017 Status: F Source: [place] 3:33 PM [facility] REPOSITORY [facility] Medical Records Department [address] [place] [address] Discharge Summary 09/08/17 1523 MR#: [id number] Acct: [id number] Name: ANGIE DIXON Clarisse Rep #: [id number] : 1945 72 From: Marguerite Chaves MD PCP: Ramo Moreira III, MD Status: ADM IN Location: [place] [address] Discharge Date and Diagnosis Date of Admission: [...] applicable Code Visit Inpatient E AND M: 45358 Disch Hosp 09/08/17 1533 <Electronically signed by Marguerite Chaves MD> Date Marguerite Chaves MD Cosigner Signature (if applicable): Date CC: Tracey Royal DO; Jayy Sanford MD; Ramo Moreira III, MD; Marguerite Chaves Signed DISCHARGE INSTRUCTION Observed: 09/08/2017 Status: F Source: [place] 3:23 PM [facility] REPOSITORY [facility] Medical Records Department [address] [place] [address] Instructions for Home/Discharge Instructions 09/08/17 1522 MR#: [id number] Acct: [id number] Name: ANGIE DIXON Rep #: [id number] : 1945 72 From: Marguerite Chaves MD [...] LEAD ELECTROCARDIOGRAM Observed: 09/08/2017 Status: F Source: [place] 1:52 PM [facility] REPOSITORY [facility] Cardiovascular Services [address] [place] [address] 12 Lead EKG 09/05/17 1826 MR#: [id number] Acct: [id number] Name: ANGIE DIXON Rep #: [id number] : 1945 72 From: Pablo Khan MD Attending Dr: Marguerite Chaves Status: ADM IN Ordering Dr: Marguerite Chaves MD Date: 09/05/17 Location: [facility] Sex: M C Admitted: 09/05/17 Test Reason [...] bundle branch block Abnormal ECG Confirmed by RODRICK CABRERA, PABLO ([id number]), department editor TE[employer] [place]IST[place] ([id number]) on 09/08/2017 1:51:30 PM Referred By: Kavita Hinojosa Confirmed By:PABLO KHAN MD 09/08/17 3535 Date Pablo Khan MD CC: Ramo Moreira III, MD; Marguerite Chaves Signed 12 LEAD ELECTROCARDIOGRAM Observed: 09/08/2017 Status: F Source: [place] 1:52 PM [facility] REPOSITORY [facility] Cardiovascular Services [address] [place] [address] 12 Lead EKG 09/07/17 0502 MR#: [id number] Acct: [id number] Name: ANGIE DIXON Rep #: [id number] : 1945 72 From: Pablo Khan MD Attending Dr: Marguerite Cahves Status: ADM IN Ordering Dr: Jayy Sanford MD Date: 09/07/17 Location: [facility] Sex: M C Admitted: 09/05/17 Test Reason : AM EKG Blood Pressure : / mmHG Vent. Rate : 112 BPM Atrial Rate : 112 BPM P-R Int : 144 ms QRS Dur : 144 ms QT Int : 394 ms P-R-T Axes : 062 020 118 degrees QTc Int : 537 ms Sinus tachycardia Left bundle branch block Abnormal ECG Confirmed by RODRICK CABRERA, PABLO ([id number]), department editor TEA BATISTA ([id number]) on 09/08/2017 1:52:29 PM Referred By: Kavita Hinojosa Confirmed By:PABLO KHAN MD 09/08/17 1352 Date Pablo Khan MD CC: Jayy Sanford MD; Ramo Moreira III, MD; Marguerite Chaves Signed 12 LEAD ELECTROCARDIOGRAM Observed: 09/08/2017 Status: F Source: [place] 1:51 PM [facility] REPOSITORY [facility] Cardiovascular Services [address] [place] [address] 12 Lead EKG 09/06/17 0512 MR#: [id number] Acct: [id number] Name: ANGIE DIXON Rep #: [id number] : 1945 72 From: Pablo Khan MD Attending Dr: Marguerite Chaves Status: ADM IN Ordering Dr: Jayy Sanford MD Date: 09/06/17 Location: [facility] Sex: M C Admitted: 09/05/17 Test Reason [...] Abnormal ECG Confirmed by PABLO KHAN MD ([id number]), department editor TEA BATISTA ([id number]) on 09/08/2017 1:50:37 PM Referred By: Kavita Hinojosa Confirmed By:PABLO KHAN MD 09/08/17 1350 Date Pablo Khan MD CC: Jayy Sanford MD; Ramo Moreira III, MD; Marguerite Chaves Signed 12 LEAD ELECTROCARDIOGRAM Observed: 09/08/2017 Status: F Source: [place] 1:51 PM [facility] REPOSITORY [facility] Cardiovascular Services [address] [place] [address] 12 Lead EKG 09/06/17 0101 MR#: [id number] Acct: [id number] Name: ANGIE DIXON Rep #: [id number] : 1945 72 From: Pablo Khan MD Attending Dr: Marguerite Chaves Status: ADM IN Ordering Dr: Ezra Ramirez MD Date: 09/06/17 Location: [facility] Sex: M C Admitted: 09/05/17 Test Reason [...] Abnormal ECG Confirmed by PABLO KHAN MD ([id number]), department editor TEA BATISTA ([id number]) on 09/08/2017 1:50:58 PM Referred By: Kavita Hinojosa Confirmed By:PABLO KHAN MD 09/08/17 1351 Date Pablo Khan MD CC: Ramo Moreira III, MD; Marguerite Chaves; Ezra Ramirez MD Signed 12 LEAD ELECTROCARDIOGRAM Observed: 09/08/2017 Status: F Source: [place] 1:14 PM [facility] REPOSITORY [facility] Cardiovascular Services [address] [place] [address] 12 Lead EKG 09/04/17 2242 MR#: [id number] Acct: [id number] Name: ANGIE DIXON Rep #: [id number] : 1945 72 From: Pablo Khan MD Attending Dr: Marguerite Chaves Status: ADM IN Ordering Dr: Keo Amato MD Date: 09/04/17 Location: [facility] Sex: M C Admitted: 09/05/17 Test Reason [...] bundle branch block Abnormal ECG Confirmed by RODRICK CABRERA, PABLO ([id number]), department editor TEA BATISTA ([id number]) on 09/08/2017 1:13:49 PM Referred By: Kavita Hinojosa Confirmed By:PABLO KHAN MD 09/08/17 1313 Date Pablo Khan MD CC: Ramo Moreira III, MD; Marguerite Chaves; Keo Amato MD Signed DISCHARGE INSTRUCTION Observed: 09/08/2017 Status: F Source: [place] 1:02 PM [facility] REPOSITORY [facility] Medical Records Department [address] [place] [address] Instructions for Home/Discharge Instructions 09/08/17 1259 MR#: [id number] Acct: [id number] Name: ANGIE DIXON Rep #: [id number] : 1945 72 From: Marguerite Chaves MD [...] MD When: Please call his office. 09/08/17 2566 <Electronically signed by Marguerite Chaves MD> Date Marguerite Chaves MD CC: Tracey Royal DO; Jayy Sanford MD; Ramo Moreira III, MD BEDSIDE GLUCOSE Collected: 09/08/2017 Status: F Source: [place] 11:10 AM [facility] REPOSITORY TYPE CODE TESTS RESULT OUT OF REFERENCE UNITS RANGE LAB L501.080 70-110 mg/dL High BEDSIDE GLU 227 Result Comment: MANAGEMENT OF PATIENT CARE PER NURSING PROTOCOL Performed By: #### L501.080 #### [facility] Laboratory Point of Care [address] [place] [address] RENAL PROFILE Collected: 09/08/2017 Status: F Source: [place] 6:10 AM [facility] REPOSITORY TYPE CODE TESTS RESULT OUT OF [...] 21.0 Performed By: #### L500.3600, L501.2450 #### [facility] Laboratory [address], [address] LIPASE Collected: 09/08/2017 Status: F Source: [place] 6:10 AM [facility] REPOSITORY TYPE CODE TESTS RESULT OUT OF REFERENCE UNITS RANGE LAB L501.2450 73-393 U/L Low LIPASE 31 Performed By: #### L500.3600, L501.2450 #### [facility] Laboratory [address] [place], [address] BEDSIDE GLUCOSE Collected: 09/08/2017 Status: F Source: [place] 5:28 AM [facility] REPOSITORY TYPE CODE TESTS RESULT OUT OF RANGE REFERENCE UNITS LAB L501.080 70-110 mg/dL Normal BEDSIDE GLU 107 Result Comment: MANAGEMENT OF PATIENT CARE PER NURSING PROTOCOL Performed By: #### L501.080 #### [facility] Laboratory Point of Care [address] [place] [address] BEDSIDE GLUCOSE Collected: 09/08/2017 Status: F Source: [place] 12:11 AM [facility] REPOSITORY TYPE CODE TESTS RESULT OUT OF REFERENCE UNITS RANGE LAB L501.080 70-110 mg/dL High BEDSIDE GLU 132 Result Comment: MANAGEMENT OF PATIENT CARE PER NURSING PROTOCOL Performed By: #### L501.080 #### [facility] Laboratory Point of Care [address] [place] [address] CONSULTATION Observed: 09/07/2017 Status: F Source: [place] 8:05 PM [facility] REPOSITORY [facility] Medical Records Department [address] [place] [address] Consultation 09/07/17 1324 MR#: [id number] Acct: [id number] Name: ANGIE DIXON Rep #: [id number] : 1945 72 From: Tracey Royal DO PCP: Ramo Moreira III, MD Status: ADM IN Y Location: [place] [address] Consultation - Renal 09/07/17 PCP/ Referring MD: [...] disease status post three-vessel bypass surgery at [facility] in 2006 followed by angioplasty and [...] Aspirin (Aspirin, Baby) 81 mg PO DAILY@0800 [facility] Last Admin: 09/07/17 08:39 Dose: 81 mg Carvedilol (Coreg) 25 mg PO BID [facility] Last Admin: 09/07/17 09:38 Dose: 25 mg Clopidogrel Bisulfate (Plavix) 75 mg PO DAILY [facility] Last Admin: 09/07/17 09:38 Dose: 75 mg Dextrose (D50w Syringe) 0 gm IV X1 PRN; Protocol PRN Reason: Hypoglycemia Furosemide (Lasix) 40 mg PO DAILY [facility] Last Admin: 09/07/17 09:38 Dose: 40 mg Glucagon () 1 mg IM .X1 PRN PRN Reason: Hypoglycemia Heparin Sodium (Beef Lung) (Heparin 500 Unit/5 Ml (100/Ml)) 500 unit IV UD PRN PRN Reason: HEPARIN FLUSH Hydralazine HCl (Apresoline Iv) 20 mg IV Q6H PRN PRN PRN Reason: Hypertensive Emergency Hydralazine HCl (Apresoline) 50 mg PO BID [facility] Last Admin: 07/26/18 08:39 Dose: 50 mg Nitroglycerin/Dextrose 25 mg/ (N/A) 250 mls @ 3 mls/hr IV .[id number] MICHAEL; 5 MCG/MIN PRN Reason: Protocol Last Admin: 09/06/17 19:35 Dose: 3 mls/hr Insulin Glargine (Lantus ([facility])) 7 units SC BREAKFAST [facility] Last Admin: 09/07/17 08:39 Dose: 7 units Insulin Human Lispro (Humalog Kwikpen ([facility])) 0 unit SQ Q6 MICHAEL PRN Reason: Protocol Last Admin: 09/07/17 11:48 Dose: Not Given Isosorbide Mononitrate (Imdur) 60 mg PO DAILY [facility] Last Admin: 09/07/17 08:39 Dose: 60 mg [...] Pantoprazole Sodium (Protonix) 40 mg PO BID [facility] Sodium Chloride () 5 - 30 ml [...] GLUCOSE Collected: 09/07/2017 Status: F Source: [place] 4:47 PM [facility] REPOSITORY TYPE CODE TESTS RESULT OUT OF RANGE REFERENCE UNITS LAB L501.080 70-110 mg/dL Normal BEDSIDE GLU 101 Result Comment: MANAGEMENT OF PATIENT CARE PER NURSING PROTOCOL Performed By: #### L501.080 #### [facility] Laboratory Point of Care [address] [address] 12 LEAD ELECTROCARDIOGRAM Observed: 09/07/2017 Status: F Source: [place] 12:37 PM [facility] REPOSITORY [facility] Cardiovascular Services [address] [place] [address] 12 Lead EKG 09/05/17 0146 MR#: [id number] Acct: [id number] Name: ANGIE DIXON Rep #: [id number] : 1945 72 From: Jayy Sanford MD [...] are now Present Confirmed by JAYY SANFORD ([id number]), department editor TEA BATISTA (56) on 09/07/2017 12:36:46 PM Referred By: Kavita Hinojosa Confirmed By:JAYY SANFORD 09/07/17 1236 Date Jayy Sanford MD CC: Ramo Moreira III, MD; Marguerite Chaves; Pablo Burrell MD Signed 12 LEAD ELECTROCARDIOGRAM Observed: 09/07/2017 Status: F Source: [place] 12:37 PM [facility] REPOSITORY [facility] Cardiovascular Services [address] [place] [address] 12 Lead EKG 09/05/17 0407 MR#: [id number] Acct: [id number] Name: ANGIE DIXON Rep #: [id number] : 1945 72 From: Jayy Sanford MD [...] IS UNCONFIRMED Confirmed by JAYY SANFORD ([id number]), department editor TEA BATISTA (56) on 09/07/2017 12:37:28 PM Referred By: Kavita Hinojosa Confirmed By:JAYY SANFORD 09/07/17 1237 Date Jayy Sanford MD CC: Ramo Moreira III, MD; Marguerite Burrell MD Signed BEDSIDE GLUCOSE Collected: 09/07/2017 Status: F Source: [place] 11:41 AM [facility] REPOSITORY TYPE CODE TESTS RESULT OUT OF REFERENCE UNITS RANGE LAB L501.080 70-110 mg/dL High BEDSIDE GLU 154 Result Comment: MANAGEMENT OF PATIENT CARE PER NURSING PROTOCOL Performed By: #### L501.080 #### [facility] Laboratory Point of Care [address] [place] [address] GALLBLADDER Observed: 09/07/2017 Status: F Source: [place] 9:28 AM [facility] REPOSITORY [facility] Imaging Services [address] [place] [address] Gallbladder MR#: [id number] Acct: [id number] Name: ANGIE DIXON Rep #: [id number] : 1945 M 72 From: Husam Jacobs MD PCP: Ramo Moreira III, MD Status: ADM IN Study: Gallbladder Date of Exam: 09/07/17 Exam# [id number] Ordering Dr: Jayy Sanford MD STUDY: ABDOMINAL [...] Jayy Sanford MD; Ramo Moreira III, MD Manager Lvn: Signed BEDSIDE GLUCOSE Collected: 09/07/2017 Status: F Source: [place] 6:01 AM [facility] REPOSITORY TYPE CODE TESTS RESULT OUT OF REFERENCE UNITS RANGE LAB L501.080 70-110 mg/dL High BEDSIDE GLU 173 Result Comment: MANAGEMENT OF PATIENT CARE PER NURSING PROTOCOL Performed By: #### L501.080 #### [facility] Laboratory Point of Care [address] [place], [place] [address] CBC W/DIFF, AUTOMATED Collected: 09/07/2017 Status: F Source: [place] 3:25 AM [facility] REPOSITORY TYPE CODE TESTS RESULT OUT OF [...] LYMPHOPENIA NOTED Performed By: #### L100.0100 #### [facility] [address] [place], [address] BASIC METABOLIC Collected: 09/07/2017 Status: F Source: [place] PROFILE (BMP) 3:25 AM [facility] REPOSITORY TYPE CODE TESTS RESULT OUT OF [...] GAP 10 Performed By: #### L500.2500 #### [facility] Laboratory [address] [place], [place], [address] BEDSIDE GLUCOSE Collected: 09/06/2017 Status: F Source: [place] 9:29 PM [facility] REPOSITORY TYPE CODE TESTS RESULT OUT OF REFERENCE UNITS RANGE LAB L501.080 70-110 mg/dL High BEDSIDE GLU 190 Result Comment: MANAGEMENT OF PATIENT CARE PER NURSING PROTOCOL Performed By: #### L501.080 #### [facility] Laboratory Point of Care [address] [place], [place] [address] M R STAPH AUREUS Collected: 09/06/2017 Status: F Source: [place] DNA BY PCR 5:45 PM [facility] REPOSITORY TYPE CODE TESTS RESULT OUT OF RANGE REFERENCE UNITS LAB L8200.1100 Negative Normal MRSA Negative RESULT Performed By: #### L8200.1000 #### [facility] [address] [place], [place], [address] PROGRESS Observed: 09/06/2017 Status: COMPLETED Source: [place] 5:17 PM [facility] [place] REPOSITORY HNO ID: [id number] Author: Abby Moser Ma Service: (none) Author Type: (none) Type: Progress Notes Filed: 09/06/2017 5:22 PM Note Text: PATIENT WAS SCHEDULED FOR A TCM APPT 09/06/17 AND MISSED APPT. D/T BEING READMITTED AT [facility] FOR: PROBABLE UNSTABLE ANGINA/CAD AND HEART CATHETERIZATION. BEDSIDE GLUCOSE Collected: 09/06/2017 Status: F Source: [place] 4:18 PM [facility] REPOSITORY TYPE CODE TESTS RESULT OUT OF REFERENCE UNITS RANGE LAB L501.080 70-110 mg/dL High BEDSIDE GLU 123 Result Comment: MANAGEMENT OF PATIENT CARE PER NURSING PROTOCOL Performed By: #### L501.080 #### [facility] Laboratory Point of Care [address] [place], [place] [address] BEDSIDE GLUCOSE Collected: 09/06/2017 Status: F Source: [place] 11:16 AM [facility] REPOSITORY TYPE CODE TESTS RESULT OUT OF REFERENCE UNITS RANGE LAB L501.080 70-110 mg/dL High BEDSIDE GLU 121 Result Comment: MANAGEMENT OF PATIENT CARE PER NURSING PROTOCOL Performed By: #### L501.080 #### [facility] Laboratory Point of Care [address] [place] [address] BEDSIDE GLUCOSE Collected: 09/06/2017 Status: F Source: [place] 6:49 AM [facility] REPOSITORY TYPE CODE TESTS RESULT OUT OF REFERENCE UNITS RANGE LAB L501.080 70-110 mg/dL High BEDSIDE GLU 118 Result Comment: MANAGEMENT OF PATIENT CARE PER NURSING PROTOCOL Performed By: #### L501.080 #### [facility] Laboratory Point of Care [address] [place] [address] CBC W/DIFF, AUTOMATED Collected: 09/06/2017 Status: F Source: [place] 5:10 AM [facility] REPOSITORY TYPE CODE TESTS RESULT OUT OF [...] Lymph 0.99 Performed By: #### L100.0100 #### [facility] [address] [facility] [place], [place], [address] BASIC METABOLIC Collected: 09/06/2017 Status: F Source: [place] PROFILE (BMP) 5:10 AM [facility] REPOSITORY TYPE CODE TESTS RESULT OUT OF [...] GAP 9 Performed By: #### L500.2500 #### [facility] [address] [place], [address] PROTHROMBIN TIME W/INR Collected: 09/06/2017 Status: F Source: [place] 5:10 AM [facility] REPOSITORY TYPE CODE TESTS RESULT OUT OF RANGE REFERENCE UNITS LAB L300.4150 11.7-14.9 SECONDS Normal PROTIME 14.1 LAB L300.4200 Normal INR 1.1 Performed By: #### L300.3900, L300.4310 #### [facility] [address] [place], [address] PARTIAL THROMBOPLAST Collected: 09/06/2017 Status: F Source: [place] TIME 5:10 AM [facility] REPOSITORY TYPE CODE TESTS RESULT OUT OF RANGE REFERENCE UNITS LAB L300.4310 24.1-36.2 Seconds Normal PTT 27.3 Performed By: #### L300.3900, L300.4310 #### [facility] [address] [place], [address] BEDSIDE GLUCOSE Collected: 09/06/2017 Status: F Source: [place] 3:43 AM [facility] REPOSITORY TYPE CODE TESTS RESULT OUT OF REFERENCE UNITS RANGE LAB L501.080 70-110 mg/dL High BEDSIDE GLU 113 Result Comment: MANAGEMENT OF PATIENT CARE PER NURSING PROTOCOL Performed By: #### L501.080 #### [facility] Laboratory Point of Care [address] [place] [address] BEDSIDE GLUCOSE Collected: 09/05/2017 Status: F Source: [place] 11:23 PM [facility] REPOSITORY TYPE CODE TESTS RESULT OUT OF REFERENCE UNITS RANGE LAB L501.080 70-110 mg/dL High BEDSIDE GLU 145 Result Comment: MANAGEMENT OF PATIENT CARE PER NURSING PROTOCOL Performed By: #### L501.080 #### [facility] Laboratory Point of Care [address] [place] [address] URINALYSIS, COMPLETE Collected: 09/05/2017 Status: F Source: [place] 10:45 PM [facility] REPOSITORY Order Comment: Order Date: 09/05/17 How [...] URINE SEEN Performed By: #### L400.0001 #### [facility] [address] [place], [address] BEDSIDE GLUCOSE Collected: 09/05/2017 Status: F Source: [place] 4:32 PM [facility] REPOSITORY TYPE CODE TESTS RESULT OUT OF REFERENCE UNITS RANGE LAB L501.080 70-110 mg/dL High BEDSIDE GLU 277 Result Comment: MANAGEMENT OF PATIENT CARE PER NURSING PROTOCOL Performed By: #### L501.080 #### [facility] Laboratory Point of Care [address] [place] [address] CONSULTATION Observed: 09/05/2017 Status: F Source: [place] 2:06 PM [facility] REPOSITORY [facility] Medical Records Department [address] [place] [address] Consultation 09/05/17 1354 MR#: [id number] Acct: [id number] Name: ZACKANGIE D Rep #: [id number] : 1945 72 From: Jayy Sanford MD PCP: Ramo Moreira III, MD Status: ADM IN Y Location: [place] [address] Problem List (1) Chest pain Status: Acute [...] disease status post three-vessel bypass surgery at [facility] in 2006 followed by angioplasty and stenting in 2012 and 2013 of unknown vessels. In addition the patient is a history of diverticulitis status post colectomy and colostomy bag in 2006 at the time of his bypass surgery. In addition the patient has significant hypertension and was recently admitted to [facility] on 08/30/17 for hypertension induced [...] significant hypertension. He sought medical attention at [facility] ER where his EKG showed normal sinus rhythm, [...] PM. Code Visit Inpatient E AND M: 75785 Init Hosp L2 09/05/17 1406 <Electronically signed by Jayy Sanford MD> Date Jayy Sanford MD Cosigner Signature (if applicable): Date CC: Jayy Sanford MD; Ramo Moreira III, MD Signed BEDSIDE GLUCOSE Collected: 09/05/2017 Status: F Source: [place] 11:34 AM [facility] REPOSITORY TYPE CODE TESTS RESULT OUT OF REFERENCE UNITS RANGE LAB L501.080 70-110 mg/dL High BEDSIDE GLU 159 Result Comment: MANAGEMENT OF PATIENT CARE PER NURSING PROTOCOL Performed By: #### L501.080 #### [facility] Laboratory Point of Care [address] [place] [address] CHEST WITHOUT Observed: 09/05/2017 Status: F Source: [place] CONTRAST 9:04 AM [facility] REPOSITORY [facility] Imaging Services [address] [place] [address] Chest without Contrast MR#: [id number] Acct: [id number] Name: ANGIE DIXON Rep #: [id number] : 1945 M 72 From: Saud Juarez DO PCP: Ramo Moreira III, MD Status: ADM IN Study: Chest without Contrast Date of Exam: 09/05/17 Exam# [id number] Ordering Dr: Marguerite Chaves MD STUDY: CT [...] CC: Ramo Moreira III, MD; Marguerite Chaves Manager Lvn: Signed SPINE THORACIC Observed: 09/05/2017 Status: F Source: [place] WITHOUT CONTRAS 9:04 AM [facility] REPOSITORY [facility] Imaging Services [address] [place] [address] Spine Thoracic without Contras MR#: [id number] Acct: [id number] Name: ANGIE DIXON Clarisse Rep #: [id number] : 1945 M 72 From: Saud Juarez DO PCP: Ramo Moreira III, MD Status: ADM IN Study: Spine Thoracic without Contras Date of Exam: 09/05/17 Exam# [id number] Ordering Dr: Marguerite Chaves MD STUDY: CT [...] EDT Tel , Service support , CC: Raom Moreira III, MD; Marguerite Chaves Manager Lvn: Signed HISTORY AND PHYSICAL Observed: 09/05/2017 Status: F Source: [place] EXAM 6:48 AM [facility] REPOSITORY [facility] Medical Records Department [address] [place] [address] History and Physical 09/04/17 2357 MR#: [id number] Acct: [id number] Name: ANGIE DIXON Rep #: [id number] : 1945 72 From: Pablo Burrell MD PCP: Ramo Moreira III, MD Status: ADM IN Y Location: [place] [address] Problem List (1) Chest pain Status: Acute [...] 09/05/2017 Status: F Source: [place] 5:17 AM [facility] REPOSITORY TYPE CODE TESTS RESULT OUT OF REFERENCE UNITS RANGE LAB L501.080 70-110 mg/dL High BEDSIDE GLU 157 Result Comment: MANAGEMENT OF PATIENT CARE PER NURSING PROTOCOL Performed By: #### L501.080 #### [facility] Laboratory Point [place] [address] TROPONIN-I Collected: 09/05/2017 Status: F Source: [place] 4:55 AM [facility] REPOSITORY Order Comment: 'TROP' Serial specimen #1, #2 or #3: 3 'TROP' Serial specimen #1, #2, #3, or #4: 3 TYPE CODE TESTS RESULT OUT OF RANGE REFERENCE UNITS LAB L501.4010 <0.045 ng/mL High 0.064 TROPONIN-I Result Comment: TROPONIN-I EXPECTED VALUES <0.045 Negative 0.045 - 0.590 Consistent with Cardiac Damage > OR = 0.600 Critical Value Not every elevated troponin is indicative of NE. These values should be used with clinical judgement in examining the patient's clinical picture for diagnosis. To establish a diagnosis of NE versus myocardial injury, there must be a demonstrated rise and/or fall in the troponin values, in addition to ischemic symptoms, EKG changes, new regional wall motion abnormality, and/or angiographical evidence. PLEASE NOTE: REFERENCE RANGES EDITED 17 Performed By: #### L501.4010, L500.4050 #### [facility] [place], [address] COMPREHENSIVE METABOLIC Collected: 09/05/2017 Status: F Source: [facility] 4:55 AM [facility] REPOSITORY Order Comment: 'TROP' Serial specimen #1, [...] 12 Performed By: #### L501.4010, L500.4050 #### [facility] [address] [place], [address] PROTHROMBIN TIME W/INR Collected: 09/05/2017 Status: F Source: [facility] [place] 4:55 AM [facility] REPOSITORY TYPE CODE TESTS RESULT OUT OF RANGE REFERENCE UNITS LAB L300.4150 11.7-14.9 SECONDS Normal PROTIME 14.0 LAB L300.4200 Normal INR 1.1 Performed By: #### L300.3900 #### [facility] [address] [place], [address] EMERGENCY DEPARTMENT Observed: 09/05/2017 Status: F Source: [facility] [place] SUMMARY 4:20 AM [facility] REPOSITORY [facility] Medical Records Department [address] [place] [address] Emergency Department Summary 09/04/17 2257 MR#: [id number] Acct: [id number] Name: ZACKANGIE Clarisse Rep #: [id number] : 1945 72 From: Keo Aamto MD PCP: Ramo Moreira III, MD Status: [...] kidney disease This note was generated with TouchTen dictation software. It may contain incorrect words, [...] problems, contact your Primary Care Provider. Call [facility] ([phone]) or report to the closest Emergency Room. Call 911 if necessary. 09/05/17 0420 <Electronically signed by Keo Amato MD> Date Keo Amato MD Cosigner Signature (If Indicated): Date CC: Ramo Moreira III, MD HISTORY AND PHYSICAL Observed: 09/05/2017 Status: F Source: [facility] [place] EXAM 12:28 AM [facility] REPOSITORY [facility] Medical Records Department [address] [place] [address] History and Physical 09/05/17 001 MR#: [id number] Acct: [id number] Name: ANGIE DIXON Rep #: [id number] : 1945 72 From: Pablo Burrell MD PCP: Ramo Moreira III, MD Status: REG ER Y Location: ED Problem List (1) Chest pain Status: Acute Qualifiers: Chest pain type: chest pain due to myocardial ischemia (2) DM2 (diabetes mellitus, type 2) Status: Chronic Qualifiers: Diabetes mellitus penitentiary insulin use: with penitentiary use Diabetes mellitus complication status: with kidney [...] NPO Code Visit Inpatient E AND M: 55205 Init Hosp L3 09/05/17 0028 <Electronically signed by Pablo Burrell MD> Date Pablo Burrell MD Cosigner Signature: Date (if applicable) CC: Ramo Moreira III, MD; Pablo Burrell MD Signed CBC W/DIFF, AUTOMATED Collected: 09/04/2017 Status: F Source: [facility] 11:00 PM [facility] REPOSITORY TYPE CODE TESTS RESULT OUT OF [...] Lymph 1.74 Performed By: #### L100.0100 #### [facility] [address] [place], [address] BASIC METABOLIC Collected: 09/04/2017 Status: F Source: [facility] PROFILE (BMP) 11:00 PM [facility] REPOSITORY TYPE CODE TESTS RESULT OUT OF [...] 10 Performed By: #### L500.2500, L501.4010 #### [facility] [address] [place], [address] TROPONIN-I Collected: 09/04/2017 Status: F Source: [place] 11:00 PM [facility] REPOSITORY TYPE CODE TESTS RESULT OUT OF RANGE REFERENCE UNITS LAB L501.4010 <0.045 ng/mL Normal 0.025 TROPONIN-I Result Comment: TROPONIN-I EXPECTED VALUES <0.045 Negative 0.045 - 0.590 Consistent with Cardiac Damage > OR = 0.600 Critical Value Not every elevated troponin is indicative of NE. These values should be used with clinical judgement in examining the patient's clinical picture for diagnosis. To establish a diagnosis of NE versus myocardial injury, there must be a demonstrated rise and/or fall in the troponin values, in addition to ischemic symptoms, EKG changes, new regional wall motion abnormality, and/or angiographical evidence. PLEASE NOTE: REFERENCE RANGES EDITED 17 Performed By: #### L500.2500, L501.4010 #### [facility] [address] [place], [address] CHEST PA AND LATERAL Observed: 09/04/2017 Status: F Source: [facility] [place] 10:56 PM [facility] REPOSITORY [facility] Imaging Services [address] [place] [address] Chest PA and Lateral MR#: [id number] Acct: [id number] Name: ANGIE DIXON Rep #: [id number] : 1945 72 From: Karson Stephens MD PCP: Ramo Moreira III, MD Status: REG ER Study: Chest PA and Lateral Date of Exam: 09/04/17 Exam# [id number] Ordering Dr: Keo Amato MD STUDY: X-RAY [...] Ramo Moreira III, MD; Keo Amato MD Manager Lvn: Signed PROGRESS Observed: 09/04/2017 Status: COMPLETED Source: [place] 12:13 PM [facility] REPOSITORY HNO ID: [id number] Author: Roseanne Sarabia MA Service: (none) Author Type: Obstetrics And Gynecology Professor Type: Progress Notes Filed: 09/04/2017 5:46 PM Note Text: TRANSITION CARE MANAGEMENT (TCM) INITIAL CONTACT Obstetrics And Gynecology Professor Outreach Provider Action/FYI: Admitted on 08/31 for chest pain AND hypertensive emergency--D/c from [facility] on 09/01 Initial contact with patient post discharge, spoke to patient. Patient identified by name and . SUMMARY: -Pt discharged from [facility] on 09/02/2007. -Admitted for: chest [...] F Source: [facility] PROFILE (BMP) 8:39 AM [facility] REPOSITORY Order Comment: Send Results To: Ramo [...] GAP 12 Performed By: #### L500.2500 #### [facility] [address] [place], [address] CNPTOUTREACH Observed: 09/04/2017 Status: COMPLETED Source: [place] 12:00 AM [facility] REPOSITORY Patient Outreach (FAMPWS) ANGIE DIXON ([id number]) 1945 M Date Time Provider Department 09/04/17 ROSEANNE SARABIA) FAMPWS During your visit today, we recorded the following information about you: Roseanne Sarabia CMA, HANNAH 09/04/2017 5:46 PM Signed TRANSITION CARE MANAGEMENT (TCM) INITIAL CONTACT Obstetrics And Gynecology Professor Outreach Provider Action/FYI: Admitted on 08/31 for chest pain AND hypertensive emergency--D/c from [facility] on 7/20 Initial contact with patient post discharge, spoke to patient. Patient identified by name and . SUMMARY: -Pt discharged from [facility] on 09/02/2007. -Admitted for: chest [...] AND MISSED APPT. D/T BEING READMITTED AT [facility] FOR: PROBABLE UNSTABLE ANGINA/CAD AND HEART CATHETERIZATION. Allergies As of Date: 09/04/2017 Noted Allergy Reaction COVERA-HS (VERAPAMIL HCL) 01/27/2005 5 - Intolerance Comments: passed out LISINOPRIL 03/11/2006 3 - Cough NIASPAN (NIACIN) 04/28/2009 2 - Rash Date Reviewed: 05/25/2017 Reviewed by: Roseanne ([facility]) HANNAH Sarabia - Fully Assessed Reason for Visit: Transition Of Care [4074] Cmt: Admitted on 08/31 for chest pain AND hypertensive emergency--D/c from [facility] on 09/01 Prescriptions as of [...] DISCHARGE SUMMARY Observed: 09/01/2017 Status: F Source: [facility] [place] 1:17 PM [facility] REPOSITORY [facility] Medical Records Department [address] [place] [address] Discharge Summary 09/01/17 1003 MR#: [id number] Acct: [id number] Name: ANGIE DIXON Rep #: [id number] : 1945 72 From: Kavita MEREDITHC PCP: Ramo Moreira III, MD Status: DIS VINH Y Location: [place] [address] ADDENDUM by Carmen Hogan on 09/01/17 at [...] s/p Colostomy Status who presented to the [facility] ED on 08/31/17 w/ history [...] reevaluation in addition to follow-up with his newcomer hostess, Dr. Patrick Gutierrez within 1-2 weeks to review admission and assure blood pressure remained stable with repeat basic metabolic panel at follow- up to assure stable renal function given chronic kidney disease and alterations to his regimen. Patient notified that if recurrent chest discomfort he would require cardiac catheterization. Discharge Time: > 35 Minutes OBSV E AND M: 04411 Observation care discharge 09/01/17 1317 <Electronically signed [...] during admission. Patient follows with Dr. Gutierrez, [facility] as outpatient. Echocardiogram demonstrated an EF [...] 12/02/13 Mirtazapine [Remeron] 15 mg PO QHS 10/20/14 Doxazosin Mesylate [Cardura] 2 mg PO QHS [...] applicable 09/01/17 1019 <Electronically signed by Kavita Hinojosa NP-C> Date Kavita Hinojosa MANUFACTURING SUPPORT ENGINEER-C 09/01/17 1310<Electronically signed by Carmen Hogan > Cosigner Signature (if applicable): Date Carmen Hogan CC: MANUFACTURING SUPPORT ENGINEER-C Kavita Hinojosa; Carmen Hogan; Ramo Moreira III, MD; Patrick Gutierrez MD Signed 12 LEAD ELECTROCARDIOGRAM Observed: 09/01/2017 Status: F Source: [place] 1:17 PM [facility] REPOSITORY [facility] Cardiovascular Services [address] [place] [address] [place] [address] 12 Lead EKG 08/31/17 0408 MR#: [id number] Acct: [id number] Name: ANGIE DIXON Rep #: [id number] : 1945 72 From: Woo Mills MD Attending Dr: Carmen Hogan Status: DIS VINH Ordering Dr: German Rivas MD Date: 08/31/17 Location: [facility] Sex: M C Admitted: 08/31/17 Test Reason [...] bundle branch block Abnormal ECG Confirmed by ABDIAZIZ CABRERA, WOO ([id number]), department editor TEA BATISTA ([id number]) on 09/01/2017 1:17:07 PM Referred By: [facility]CO Confirmed By:WOO MILLS MD 09/01/17 1317 Date Woo Mills MD CC: Carmen Hogan; Ramo Moreira III, MD; German Rivas MD Signed 12 LEAD ELECTROCARDIOGRAM Observed: 09/01/2017 Status: F Source: [place] 1:17 PM [facility] REPOSITORY [facility] Cardiovascular Services [address] [place] [address] 12 Lead EKG 08/31/17 0527 MR#: [id number] Acct: [id number] Name: ANGIE DIXON Rep #: [id number] : 1945 72 From: Woo Mills MD Attending Dr: Carmen Hogan Status: DIS VINH Ordering Dr: German Rivas MD Date: 08/31/17 Location: [facility] Sex: M C Admitted: 08/31/17 Test Reason [...] bundle branch block Abnormal ECG Confirmed by ABDIAZIZ CABRERA, WOO ([id number]), department editor TEA BATISTA ([id number]) on 09/01/2017 1:17:22 PM Referred By: [facility]CO Confirmed By:WOO MILLS MD 09/01/17 1317 Date Woo Mills MD CC: Carmen Hogan; Ramo Moreira III, MD; German Rivas MD Signed BEDSIDE GLUCOSE Collected: 09/01/2017 Status: F Source: [place] 10:10 AM [facility] REPOSITORY TYPE CODE TESTS RESULT OUT OF REFERENCE UNITS RANGE LAB L501.080 70-110 mg/dL High BEDSIDE GLU 117 Result Comment: MANAGEMENT OF PATIENT CARE PER NURSING PROTOCOL Performed By: #### L501.080 #### [facility] Point of Care [address] [place] [address] DISCHARGE INSTRUCTION Observed: 09/01/2017 Status: F Source: [place] 10:03 AM [facility] REPOSITORY [facility] Medical Records Department [address] [place] [address] Instructions for Home/Discharge Instructions 09/01/17 1002 MR#: [id number] Acct: [id number] Name: ANGIE DIXON Rep #: [id number] : 1945 72 From: Kavita MEREDITHC PCP: Ramo Moreira III, MD Status: ADM [...] 09/01/17 09/01/17 1003 <Electronically signed by Kavita Hinojosa NP-C> Date Kavita Hinojosa NP-C CC: Jayy Sanford MD; Ramo Moreira III, MD BEDSIDE GLUCOSE Collected: 09/01/2017 Status: F Source: [facility] [place] 7:05 AM [facility] REPOSITORY TYPE CODE TESTS RESULT OUT OF RANGE REFERENCE UNITS LAB L501.080 70-110 mg/dL Normal BEDSIDE GLU 103 Result Comment: MANAGEMENT OF PATIENT CARE PER NURSING PROTOCOL Performed By: #### L501.080 #### [facility] Point of Care [facility] [address] [place], [place] [address] TROPONIN-I Collected: 09/01/2017 Status: F Source: [facility] [place] 6:50 AM [facility] REPOSITORY Order Comment: 'TROP' Serial specimen #1, #2 or #3: 3 TYPE CODE TESTS RESULT OUT OF RANGE REFERENCE UNITS LAB L501.4010 <0.045 ng/mL Normal 0.015 TROPONIN-I Result Comment: TROPONIN-I EXPECTED VALUES <0.045 Negative 0.045 - 0.590 Consistent with Cardiac Damage > OR = 0.600 Critical Value Not every elevated troponin is indicative of NE. These values should be used with clinical judgement in examining the patient's clinical picture for diagnosis. To establish a diagnosis of NE versus myocardial injury, there must be a demonstrated rise and/or fall in the troponin values, in addition to ischemic symptoms, EKG changes, new regional wall motion abnormality, and/or angiographical evidence. PLEASE NOTE: REFERENCE RANGES EDITED 17 Performed By: #### L501.4010 #### [facility] [address] [place], [place], [address] TROPONIN-I Collected: 09/01/2017 Status: F Source: [place] 12:55 AM [facility] REPOSITORY Order Comment: 'TROP' Serial specimen #1, #2 or #3: 1 TYPE CODE TESTS RESULT OUT OF RANGE REFERENCE UNITS LAB L501.4010 <0.045 ng/mL Normal 0.027 TROPONIN-I Result Comment: TROPONIN-I EXPECTED VALUES <0.045 Negative 0.045 - 0.590 Consistent with Cardiac Damage > OR = 0.600 Critical Value Not every elevated troponin is indicative of NE. These values should be used with clinical judgement in examining the patient's clinical picture for diagnosis. To establish a diagnosis of NE versus myocardial injury, there must be a demonstrated rise and/or fall in the troponin values, in addition to ischemic symptoms, EKG changes, new regional wall motion abnormality, and/or angiographical evidence. PLEASE NOTE: REFERENCE RANGES EDITED 17 Performed By: #### L501.4010, L501.5200 #### [facility] [address] [place], [place], [address] MAGNESIUM Collected: 09/01/2017 Status: F Source: [place] 12:55 AM [facility] REPOSITORY Order Comment: 'TROP' Serial specimen #1, #2 or #3: 1 TYPE CODE TESTS RESULT OUT OF RANGE REFERENCE UNITS LAB L501.5200 1.6-2.6 mg/dL Normal MG 2.1 Performed By: #### L501.4010, L501.5200 #### [facility] [address] [place], [address] CBC-COMPLETE BLOOD CNT Collected: 09/01/2017 Status: F Source: [place] NO DIFF 12:55 AM [facility] REPOSITORY TYPE CODE TESTS RESULT OUT OF [...] MPV 11.4 Performed By: #### L100.0500 #### [facility] [address] [place], [place] [address], [address] BASIC METABOLIC Collected: 09/01/2017 Status: F Source: [facility] [place] PROFILE (BMP) 12:55 AM [facility] REPOSITORY TYPE CODE TESTS RESULT OUT OF [...] 8 Performed By: #### L500.2500, L500.4100 #### [facility] [address] [place], [place], [address] LIPID PROFILE Collected: 09/01/2017 Status: F Source: [facility] [place] 12:55 AM [facility] REPOSITORY TYPE CODE TESTS RESULT OUT OF [...] 46 Performed By: #### L500.2500, L500.4100 #### [facility] [address] [place], [place], [address] CNPN Observed: 09/01/2017 Status: COMPLETED Source: [place] 12:00 AM [facility] REPOSITORY Telephone (CAWSTR) ANGIE DIXON ([id number]) 1945 M Date Time Provider Department 09/01/17 PATRICK GUTIERREZ During your visit today, we recorded the following information about you: Manuela Degroot RN 09/01/2017 2:07 PM Signed Papers received froM [facility] from pt's admission received, placed in box to review Manuela Gutierrez MD 09/04/2017 4:44 PM Signed Noted. Please schedule office visit for 2 weeks. If he has recurrent chest pain in the meantime, he needs to go back to the [place] emergency department for angiography MD Beatrice Lux [...] Rash Date Reviewed: 05/25/2017 Reviewed by: Roseanne ([facility]) HANNAH Sarabia - Fully Assessed Reason [...] 08/31/2017 Status: F Source: [place] 10:26 PM [facility] REPOSITORY TYPE CODE TESTS RESULT OUT OF REFERENCE UNITS RANGE LAB L501.080 70-110 mg/dL High BEDSIDE GLU 145 Result Comment: MANAGEMENT OF PATIENT CARE PER NURSING PROTOCOL Performed By: #### L501.080 #### [facility] [place] [address] BEDSIDE GLUCOSE Collected: 08/31/2017 Status: F Source: [place] 6:09 PM [facility] REPOSITORY TYPE CODE TESTS RESULT OUT OF REFERENCE UNITS RANGE LAB L501.080 70-110 mg/dL High BEDSIDE GLU 279 Result Comment: MANAGEMENT OF PATIENT CARE PER NURSING PROTOCOL Performed By: #### L501.080 #### [facility] Point of Care [address] [place] [address] ECHOCARDIOGRAM COMPLETE Observed: 08/31/2017 Status: F Source: [place] 4:53 PM [facility] REPOSITORY [facility] Cardiovascular Services [address] [place] [address] Echo Complete 08/31/17 1543 MR#: [id number] Acct: [id number] Name: ANGIE DIXON Rep #: [id number] : 1945 72 From: Jayy Sanford MD Attending Dr: Ezra Ramirez MD Status: ADM VINH Ordering Dr: Jayy Sanford MD Date: 08/31/17 Location: PCU Sex: M C Admitted: 08/31/17 Reason For [...] Referring Physician: RAMO MOREIRA Performed By: Katia Madden, RDCS, RVT 08/31/17 1652 Date Jayy Sanford MD CC: Jayy Sanford MD; Ramo Moreira III, MD; Ezra Ramirez MD Date Dictated: 08/31/17 1543 Date Transcribed: 08/31/17 1652 Manager Lvn: Signed BEDSIDE GLUCOSE Collected: 08/31/2017 Status: F Source: [place] 11:46 AM [facility] REPOSITORY TYPE CODE TESTS RESULT OUT OF REFERENCE UNITS RANGE LAB L501.080 70-110 mg/dL High BEDSIDE GLU 114 Result Comment: MANAGEMENT OF PATIENT CARE PER NURSING PROTOCOL Performed By: #### L501.080 #### [facility] Point of Care [address] [place] [address] CONSULTATION Observed: 08/31/2017 Status: F Source: [place] 10:54 AM [facility] REPOSITORY [facility] Medical Records Department [address] [facility] [place] [address] Consultation 08/31/17 1041 MR#: [id number] Acct: [id number] Name: ANGIE DIXON Rep #: [id number] : 1945 72 From: Jayy Sanford MD PCP: Ramo Moreira III, MD Status: ADM VINH Y Location: [place] [address] Problem List (1) Chest pain Status: Acute [...] disease status post three-vessel bypass surgery at [facility] in 2006, followed by angioplasty and [...] it returned. He sought medical attention at [facility]. At that time he had an EKG [...] AM. Code Visit Inpatient E AND M: 64086 Init Hosp L2 08/31/17 1054 <Electronically signed by Jayy Sanford MD> Date Jayy Sanford MD Cosigner Signature (if applicable): Date CC: Jayy Sanford MD; Ramo Moreira III, MD Signed TROPONIN-I Collected: 08/31/2017 Status: F Source: [place] 10:30 AM [facility] REPOSITORY Order Comment: 'TROP' Serial specimen #1, #2 or #3: 3 TYPE CODE TESTS RESULT OUT OF RANGE REFERENCE UNITS LAB L501.4010 <0.045 ng/mL Normal 0.029 TROPONIN-I Result Comment: TROPONIN-I EXPECTED VALUES <0.045 Negative 0.045 - 0.590 Consistent with Cardiac Damage > OR = 0.600 Critical Value Not every elevated troponin is indicative of NE. These values should be used with clinical judgement in examining the patient's clinical picture for diagnosis. To establish a diagnosis of NE versus myocardial injury, there must be a demonstrated rise and/or fall in the troponin values, in addition to ischemic symptoms, EKG changes, new regional wall motion abnormality, and/or angiographical evidence. PLEASE NOTE: REFERENCE RANGES EDITED 17 Performed By: #### L501.4010 #### [facility] [address] [place], [address] LIPID PROFILE Collected: 08/31/2017 Status: F Source: [place] 10:30 AM [facility] REPOSITORY TYPE CODE TESTS RESULT OUT OF [...] VLDL 48 Performed By: #### L500.4100 #### [facility] [address] [place], [address] HISTORY AND PHYSICAL Observed: 08/31/2017 Status: F Source: [facility] [place] EXAM 7:08 AM [facility] REPOSITORY [facility] Medical Records Department [address] [place] [address] History and Physical 08/31/17 0631 MR#: [id number] Acct: [id number] Name: ANGIE DIXON Rep #: [id number] : 1945 72 From: Ezra Ramirez MD PCP: Ramo Moreira III, MD Status: ADM VINH Y Location: [place] [address] Problem List (1) Chest pain Status: Acute [...] diaphoresis. He reports occasionally feeling clammy. His newcomer hostess is Dr. Villeda [facility]. He reports that he has [...] this gives him any relief in the [facility] We will consult cardiology for further stratification. Hypertension This could be contributing to his chest pain. Metoprolol as above. Amlodipine and Cardura continued. Nitroglycerin drip as above. Diabetes mellitus On Lantus adjusted due to n.p.o. status Correction scale protocol every 6 hours as patient is n.p.o. GERD Protonix escalated as above DVT prophylaxis Subcutaneous heparin. Code Visit OBSV E AND M: 94710 Initial observation care L2 08/31/17 0708 <Electronically signed by Ezra Ramirez MD> Date Ezra Ramirez MD Cosigner Signature: Date (if applicable) CC: Ramo Moreira III, MD; Ezra Ramirez MD Signed TROPONIN-I Collected: 08/31/2017 Status: F Source: [place] 7:05 AM [facility] REPOSITORY Order Comment: 'TROP' Serial specimen #1, #2 or #3: 2 TYPE CODE TESTS RESULT OUT OF RANGE REFERENCE UNITS LAB L501.4010 <0.045 ng/mL Normal 0.024 TROPONIN-I Result Comment: TROPONIN-I EXPECTED VALUES <0.045 Negative 0.045 - 0.590 Consistent with Cardiac Damage > OR = 0.600 Critical Value Not every elevated troponin is indicative of NE. These values should be used with clinical judgement in examining the patient's clinical picture for diagnosis. To establish a diagnosis of NE versus myocardial injury, there must be a demonstrated rise and/or fall in the troponin values, in addition to ischemic symptoms, EKG changes, new regional wall motion abnormality, and/or angiographical evidence. PLEASE NOTE: REFERENCE RANGES EDITED 17 Performed By: #### L501.4010 #### [facility] [address] [place], [address] BEDSIDE GLUCOSE Collected: 08/31/2017 Status: F Source: [place] 7:03 AM [facility] REPOSITORY TYPE CODE TESTS RESULT OUT OF REFERENCE UNITS RANGE LAB L501.080 70-110 mg/dL High BEDSIDE GLU 159 Result Comment: MANAGEMENT OF PATIENT CARE PER NURSING PROTOCOL Performed By: #### L501.080 #### [facility] Point of Care [address] [facility] [place] [address] EMERGENCY DEPARTMENT Observed: 08/31/2017 Status: F Source: [place] SUMMARY 5:35 AM [facility] REPOSITORY [facility] Medical Records Department [address] [facility] [place] [address] Emergency Department Summary 08/31/17 0532 MR#: [id number] Acct: [id number] Name: ANGIE DIXON Rep #: [id number] : 1945 72 From: German Rivas MD [...] Chest pain This note was generated with TouchTen dictation software. It may contain incorrect words, [...] your Primary Care Provider. Call [facility] ([phone]) or report to the closest Emergency Room. Call 911 if necessary. 08/31/17 0535 <Electronically signed by German Rivas MD> Date German Rivas MD Cosigner Signature (If Indicated): Date CC: Ramo Moreira III, MD CHEST PA AND LATERAL Observed: 08/31/2017 Status: F Source: [place] 4:21 AM [facility] REPOSITORY [facility] Imaging Services [address] [place] [address] Chest PA and Lateral MR#: [id number] Acct: [id number] Name: ANGIE DIXON Rep #: [id number] : 1945 M 72 From: Lanie Batista MD PCP: Ramo Moreira III, MD Status: REG ER Study: Chest PA and Lateral Date of Exam: 08/31/17 Exam# [id number] Ordering Dr: German Rivas MD STUDY: X-RAY [...] Ramo Moreira III, MD; German Rivas MD Manager Lvn: Signed BASIC METABOLIC Collected: 08/31/2017 Status: F Source: [place] PROFILE (BMP) 4:15 AM [facility] REPOSITORY TYPE CODE TESTS RESULT OUT OF [...] 11 Performed By: #### L500.2500, L501.4010 #### [facility] [address] [place], [address] TROPONIN-I Collected: 08/31/2017 Status: F Source: [place] 4:15 AM [facility] REPOSITORY TYPE CODE TESTS RESULT OUT OF RANGE REFERENCE UNITS LAB L501.4010 <0.045 ng/mL Normal 0.029 TROPONIN-I Result Comment: TROPONIN-I EXPECTED VALUES <0.045 Negative 0.045 - 0.590 Consistent with Cardiac Damage > OR = 0.600 Critical Value Not every elevated troponin is indicative of NE. These values should be used with clinical judgement in examining the patient's clinical picture for diagnosis. To establish a diagnosis of NE versus myocardial injury, there must be a demonstrated rise and/or fall in the troponin values, in addition to ischemic symptoms, EKG changes, new regional wall motion abnormality, and/or angiographical evidence. PLEASE NOTE: REFERENCE RANGES EDITED 17 Performed By: #### L500.2500, L501.4010 #### [facility] [address] [place], [address] CBC W/DIFF, AUTOMATED Collected: 08/31/2017 Status: F Source: [place] 4:15 AM [facility] REPOSITORY TYPE CODE TESTS RESULT OUT OF [...] Lymph 1.29 Performed By: #### L100.0100 #### [facility] [address] [place], [address] RENAL PROFILE Collected: 08/17/2017 Status: F Source: [place] 8:38 AM [facility] REPOSITORY TYPE CODE TESTS RESULT OUT OF [...] CO2 24.0 Performed By: #### L500.3600 #### [facility] [address] [place], [address] CBC-COMPLETE BLOOD CNT Collected: 08/17/2017 Status: F Source: [place] NO DIFF 8:38 AM [facility] REPOSITORY TYPE CODE TESTS RESULT OUT OF [...] MPV 11.6 Performed By: #### L100.0500 #### [facility] [address] [facility] [place], [address] PTHIN Collected: 08/17/2017 Status: F Source: [place] 8:38 AM [facility] REPOSITORY TYPE CODE TESTS RESULT OUT OF RANGE REFERENCE UNITS LAB L509.1000 18.4-80.1 pg/mL High PTHIN 131.1 Performed By: #### L509.1000 #### [facility] [address] [place], [address] PROGRESS Observed: 05/26/2017 Status: COMPLETED Source: [place] 6:52 PM [facility] REPOSITORY HNO ID: [id number] Author: Ramo Moreira III Service: (none) Author Type: Physician Type: Progress Notes Filed: 05/26/2017 6:52 PM Note Text: Angie, Good news?the anemia is improving. Continue present medications. May recheck in 6 months. Ramo Moreira III, MD, FAAFP CBC Collected: 05/25/2017 Status: F Source: [place] 10:33 AM [facility] REPOSITORY TYPE CODE TESTS RESULT OUT OF [...] nRBC <0.01 Performed By: #### CBC #### [facility] [address] [address] HEP C AB IA W/CONF Collected: 05/25/2017 Status: F Source: [place] 10:32 AM [facility] REPOSITORY TYPE CODE TESTS RESULT OUT OF REFERENCE UNITS RANGE LAB AHCV Negative Hepatitis C Ab Negative IA Performed By: #### AHCV1B, HBA1C #### [place] [address] HEMOGLOBIN A1C Collected: 05/25/2017 Status: F Source: [place] 10:32 [facility] REPOSITORY TYPE CODE TESTS RESULT OUT OF REFERENCE UNITS RANGE LAB HGBA1C 4.3-5.6 % High Hemoglobin A1c 7.4 LAB HBA0 mg/dL Est. Average Glucose 166 Result Comment: eAG: (Estimated average glucose) is a calculated value from HgbA1c and is front office representative of the average blood glucose level in the last 2-3 month period. Performed By: #### AHCV1B, HBA1C #### [place] [id number] PROGRESS Observed: 05/25/2017 Status: COMPLETED Source: [place] 10:00 [facility] REPOSITORY HNO ID: [id number] Author: Ramo Moreira III Service: (none) Author [...] ASHD (arteriosclerotic heart disease) 2006 CABG 3, NE - BPH (benign prostatic hypertrophy) with urinary obstruction 07/09/2014 - DVT of upper extremity (deep vein thrombosis) ([facility]) - Esophageal reflux - Essential hypertension, benign - Gout 04/22/2010 - Iatrogenic pulmonary embolism and infarction ([facility]) - NSTEMI (non-ST elevated myocardial infarction) ([facility]) 2012 - Other and unspecified hyperlipidemia - Type 2 diabetes mellitus with stage 4 chronic kidney disease ([facility]) 06/05/2015 - Unequal leg length (acquired) Current [...] tablet by mouth daily at bedtime. Insulin [place], Disposable, (PEN NEEDLE) 29 gauge X 1/2 [...] MD CNOV Observed: 05/25/2017 Status: COMPLETED Source: [place] 9:40 AM [facility] REPOSITORY Office Visit (FAMPWS) ANGIE DIXON ([id number]) 1945 M Date Time Provider Department 05/25/17 [...] ASHD (arteriosclerotic heart disease) 2006 CABG 3, NE - BPH (benign prostatic hypertrophy) with urinary obstruction 07/09/2014 - DVT of upper extremity (deep vein thrombosis) ([facility]) - Esophageal reflux - Essential hypertension, benign - Gout 04/22/2010 - Iatrogenic pulmonary embolism and infarction ([facility]) - NSTEMI (non-ST elevated myocardial infarction) ([facility]) 2012 - Other and unspecified hyperlipidemia - Type 2 diabetes mellitus with stage 4 chronic kidney disease ([facility]) 06/05/2015 - Unequal leg length (acquired) Current [...] tablet by mouth daily at bedtime. Insulin [place], Disposable, (PEN NEEDLE) 29 gauge X 1/2 [...] Rash Date Reviewed: 05/25/2017 Reviewed by: Roseanne ([facility]) HANNAH Sarabia - Fully Assessed Reason [...] Units subcutaneously once daily.Disp: Rfl: HGB A1C [UXSFT1A] Order #: [id number] FUTURE doxazosin (CARDURA) 4 mg tabletTake 1 [...] on 05/25/17 PROTEIN+CREATININE Collected: Status: F Source: [place] RUIZ,URINE 05/09/2017 1:35 PM [facility] REPOSITORY TYPE CODE TESTS RESULT OUT OF RANGE REFERENCE UNITS LAB L501.1200 NO RANGE EST. mg/dL Normal UR CREAT 115.00 LAB L501.1930 <11.9 mg/dL High 187.1 PROTEIN,UR.R AN. LAB L501.1940 0-200 mg/g CRE High PROT:CRE 1627 RATIO Performed By: #### L501.0900 #### [facility] [address] [place], [address] CBC-COMPLETE BLOOD CNT Collected: 05/09/2017 Status: F Source: [place] NO DIFF 1:35 PM [facility] REPOSITORY TYPE CODE TESTS RESULT OUT OF [...] MPV 11.6 Performed By: #### L100.0500 #### [facility] [address] [place], [address] RENAL PROFILE Collected: 05/09/2017 Status: F Source: [place] 1:35 PM [facility] REPOSITORY TYPE CODE TESTS RESULT OUT OF [...] CO2 24.0 Performed By: #### L500.3600 #### [facility] [address] [place], [place], [address] PTHIN Collected: 05/09/2017 Status: F Source: [place] 1:35 PM [facility] REPOSITORY TYPE CODE TESTS RESULT OUT OF RANGE REFERENCE UNITS LAB L509.1000 18.4-80.1 pg/mL High PTHIN 127.4 Result Comment: Please Note: PTH INTACT METHOD AND REFERENCE RANGE CHANGE Effective 02/01/2017. Performed By: #### L509.1000 #### [facility] [address] [place], [address] CNPTOUTREACH Observed: 05/09/2017 Status: COMPLETED Source: [place] 12:00 AM [facility] REPOSITORY Patient Outreach ([facility]) ANGIE DIXON ([id number]) 1945 M Date Time Provider Department 05/09/17 RAMO MOREIRA III [facility] During your visit today, we recorded the following information about you: Allergies As of Date: 05/09/2017 Noted Allergy Reaction COVERA-HS (VERAPAMIL HCL) 01/27/2005 5 - Intolerance Comments: passed out LISINOPRIL 03/11/2006 3 - Cough NIASPAN (NIACIN) 04/28/2009 2 - Rash Date Reviewed: 09/28/2016 Reviewed by: Abby Cantu Cherry Picker Operator - Fully Assessed Visit Diagnosis:Medication management [Z79.899] Order(s):[facility] [SQC[facility]] Order #: [id number] FUTURE Prescriptions as of 05/09/2017 Sig: X [...] 11/24/17 PROGRESS Observed: 04/04/2017 Status: COMPLETED Source: [place] 1:21 PM [facility] REPOSITORY HNO ID: [id number] Author: Alejandra Garza Psr Service: (none) Author [...] etc. PROGRESS Observed: 04/04/2017 Status: COMPLETED Source: [place] 1:13 PM [facility] REPOSITORY HNO ID: [id number] Author: Luann Dietz) JulioC Service: (none) Author Type: Obstetrics And Gynecology Professor Type: Progress Notes Filed: 04/05/2017 12:57 PM Note Text: PHMA TEAMLET DOCUMENTATION Provider Action/FYI: pt has appointment needs diabetic foot exam and eye exam, labs orders, needs Prevnar 13 PSR Action/FYI: Teamlet has identified patient by name and date of . Team: Dr. Angel Moreira III, MD, TAQUERIA Gutierrez, Luann Hoyos MA, Mony Dimas LPN, Sarah Sarabia CMA, Uma Sofia PSR, Uma Medina RN,BSN, CPHQ, CCM, ? Last Office Visit:Visit [...] MA CNPTOUTREACH Observed: 04/04/2017 Status: COMPLETED Source: [place] 12:00 AM [facility] REPOSITORY Patient Outreach (FAMPWS) ANGIE DIXON ([id number]) 1945 M Date Time Provider Department 04/04/17 LUANN HOYOS) FAMPWS During your visit today, we recorded [...] Diabetic Foot Exam Hep C screening HANNAH Lawbrice Greg Psr 04/05/2017 12:57 PM Signed I have [...] Date Reviewed: 09/28/2016 Reviewed by: Abby Cantu Cherry Picker Operator - Fully Assessed Reason for Visit: PHMA/Care Gap Outreach [5802] Prescriptions as of 04/04/2017 Sig: HYDRALAZINE 10 [...] 04/05/17 PROGRESS Observed: 03/24/2017 Status: COMPLETED Source: [place] 3:23 PM [facility] REPOSITORY HNO ID: [id number] Author: Luann Hoyos Service: (none) Author Type: Obstetrics And Gynecology Professor Type: Progress Notes Filed: 03/24/2017 3:23 PM Note Text: The patient has been identified by name and date of : YES I have scheduled the patient for an appointment on 05/25/2017. The patient will report to the lab prior to the visit. I have pended the following lab orders: BMP HgbA1c Hep C screening PHMA Documentation 03/24/2017 Opts out of Population Health No Appointments Scheduled Scheduled PCP Appt DM2 with No SYLVIA Record Requested DM2 with No Urine Alb Lab Ordered DM2 with No DFE Record Requested Luann Hoyos MA PROGRESS Observed: 03/23/2017 Status: COMPLETED Source: [place] 2:53 PM [facility] [place] REPOSITORY HNO ID: [id number] Author: Zoie MEDRANO Service: (none) Author Type: (none) Type: Progress Notes Filed: 03/24/2017 3:23 PM Note Text: Scheduled for May as patient in in [place] currently PROGRESS Observed: 03/20/2017 Status: COMPLETED Source: [place] 10:03 PM [facility] REPOSITORY HNO ID: [id number] Author: Ramo Moreira III Service: (none) Author Type: Physician Type: Progress Notes Filed: 03/24/2017 3:23 PM Note Text: Orders have been filed. 20 minute appointment would be fine. Ramo Moreira III, MD, FAAFP PROGRESS Observed: 03/20/2017 Status: COMPLETED Source: [place] 3:13 PM [facility] REPOSITORY HNO ID: [id number] Author: Luann Dietz) Julio C Service: (none) Author Type: Obstetrics And Gynecology Professor Type: Progress Notes Filed: 03/24/2017 3:23 PM [...] MA CNPTOUTREACH Observed: 03/20/2017 Status: COMPLETED Source: [place] 12:00 AM [facility] REPOSITORY Patient Outreach (FAMPWS) ANGIE DIXON ([id number]) 1945 M Date Time Provider Department 03/20/17 LUANN HOYOS (HANNAH) FAMPWS During your visit [...] Diabetic Foot Exam HgbA1c Hep C Screening HANNAH Law III MD 03/24/2017 3:23 PM Signed Orders have been filed. 20 minute appointment would be fine. Ramo Moreira III, MD, FAAFP [facility] PAC 03/24/2017 3:23 PM Signed Scheduled for [...] screening PHMA Documentation 03/24/2017 Opts out of Population Health No Appointments Scheduled Scheduled PCP Appt DM2 [...] Date Reviewed: 09/28/2016 Reviewed by: Abby Cantu Cherry Picker Operator - Fully Assessed Reason for Visit: PHMA/Care Gap Outreach [3605] Primary Visit Diagnosis:Need for hepatitis C screening test [Z11.59] Other Visit Diagnosis:Type 2 diabetes mellitus with stage 4 chronic kidney disease, without long-term current use of insulin (HCC) [E11.22, N18.4] Order(s):HEP C AB IA W/CONF SCRN [XKSVQP7P] Order #: [id number] FUTURE HGB A1C [OCFCQ5D] Order #: [id number] FUTURE Prescriptions as of 03/20/2017 Sig: HYDRALAZINE [...] SOURCE Drug atorvastatin Pain in joints Unknown [place] 8 Allergy/293668479( calcium/F42742869 [facility] SNOM[facility]) 2(RXNORM) Hospital Repository Drug Niacin Pain in joints Unknown [place] 8 Allergy/580376312( Preparations/F001 [facility]) 409540(RXNORM) Hospital Repository Drug lisinopril/O01889 Other Unknown [place] 8 Allergy/147224927( 0658(RXNORM) [facility] SN[facility]) Hospital Repository Drug verapamil/S314775 passes out Unknown [place] 8 Allergy/824923426( 515(RXNORM) [facility] SN[facility]) Hospital Repository DRUG ATORVASTATIN INTOLERANCE [place] 8 INGREDI/679320566( [facility]CIUM [facility] Main SNOMED [facility]) [place] Rep[facility] Miscellaneous Cholesterol Meds Other Unknown [place] 8 Allergy/177345418( Community SNOM[facility]) Hospital Repository DRUG NIACIN RASH [place] 0 INGREDI/564149180( Clinic Main SNOMED CT) [place] [facility] DRUG LISINOPRIL COUGH [place] 7 INGREDI/857473848( Clinic Main SNOMED CT) [place] [facility] DRUG VERAPAMIL HCL INTOLERANCE [place] 5 INGREDI/416021847( Clinic Main SNOMED CT) [place] [facility] NG/085837258(SNOME ATORVASTATIN [facility]) [facility] Repository NG/796844131(SNOME VERAPAMIL HCL [facility]) [facility] Repository NG/495547277(SNOME LISINOPRIL [facility] D CT) [facility] System Repository NG/569253719(SNOME NIACIN [facility] D CT) Health System Repository ENCOUNTERS ENCOUNTERS ADMIT/DISCHARGE ACCOUNT NUMBER ADMITTING ENCOUNTER LOCATION SOURCE CLASS 03/07/2018 [id number] Ambulatory BMSBuilding: [place] BMS.[facility] Repository 02/23/2018 [id number] [facility] ding:LAB.FUT Repository URE 01/30/2018 [id number] [facility] ding:LAB.FUT Repository URE 01/24/2018 [id number] [facility] ding:POLAB3 Repository 01/15/2018 [id number] [facility] ding:LAB.FUT Repository URE 12/15/2017 [id number] [facility] ding:LAB.FUT Repository URE 12/11/2017/12/13/19 [id number] Ambulatory [address] Main [place] Repository 11/27/2017/11/29/19 [id number] Ambulatory [address] Repository 11/27/2017 [id number] [facility] ding:LAB.FUT Repository URE 11/23/2017/11/24/19 [id number] Ambulatory BMSBuilding: [place] 18 BMS.[facility] Repository 11/23/2017 [id number] Ambulatory [facility] ding:LAB.FUT Repository URE 11/23/2017/11/24/19 [id number] Ambulatory [address] Main [place] Repository 11/17/2017/11/18/19 [id number] Ambulatory BMSBuilding: [place] 18 BMS.[facility] Repository 11/08/2017/11/11/19 [id number] EDDIE, Inpatient [address] Other [place] Repository 11/08/2017/11/11/19 [id number] EDDIE, Inpatient [address] MEDICAL Repository CENTERBuildi ng:CVICRoom: 3232Bed: 01 11/07/2017/11/09/19 [id number] Ambulatory BMSBuilding: [place] [facility] Repository 11/07/2017/11/09/19 [id number] Ambulatory [facility]Building: [place] [facility] Repository 11/07/2017 [id number] White, Carmen Ambulatory BMSBuilding: [place] BMS.[facility] Repository 11/07/2017 [id number] White, Carmen Ambulatory BMSBuilding: [place] BMS.[facility] Repository 11/07/2017/11/09/19 [id number] White, Carmen Inpatient [address] ding:ICURoom Repository : [id number]: 10/13/2017/10/14/19 [id number] Ambulatory BMSBuilding: [place] 18 BMS.[facility] Repository 10/06/2017/10/07/19 [id number] Ambulatory BMSBuilding: [place] 18 BMS.[facility] Repository 10/06/2017 [id number] Ambulatory BMSBuilding: [place] BMS.CF.[facility] Repository 10/05/2017 [id number] Ambulatory BMSBuilding: [place] BMS.[facility] Repository 10/05/2017/10/07/19 [id number] Ambulatory [address] ding:CLSP Repository 10/02/2017 [id number] Ambulatory [facility] ding:LAB.FUT Repository URE 10/02/2017 [id number] Ambulatory [facility] ding:LAB.FUT Repository URE 09/29/2017/09/30/19 [id number] Ambulatory BMSBuilding: [place] 18 BMS.[facility] Repository 09/22/2017 [id number] Ambulatory [facility] ding:LAB Repository 09/22/2017/09/23/19 [id number] Ambulatory BMSBuilding: [place] 18 BMS.[facility] Repository 09/18/2017/09/20/19 [id number] Ambulatory [address] Repository 09/14/2017 [id number] Ambulatory [facility] ding:LAB.FUT Repository URE 09/05/2017 [id number] Ambulatory BMSBuilding: [place] BMS.[facility] Repository 09/05/2017 [id number] Pablo Burrell Ambulatory BMSBuilding: [place] BMS.[facility] Repository 09/05/2017 [id number] Pablo Burrell Ambulatory BMSBuilding: [place] BMS.[facility] Repository 09/05/2017 [id number] Pablo Burrell Ambulatory BMSBuilding: [place] BMS.[facility] Repository 09/05/2017 [id number] Pablo Burrell Ambulatory BMSBuilding: [place] BMS.[facility] Repository 09/05/2017 [id number] Pablo Burrell Ambulatory BMSBuilding: [place] BMS.[facility] Repository 09/05/2017 [id number] Pablo Burrell Ambulatory BMSBuilding: [place] BMS.[facility] Repository 09/05/2017/09/09/19 [id number] Pablo Burrell Inpatient [address] ding:PCURoom Repository : [id number]: 1 09/05/2017/09/09/19 [id number] Ambulatory BMSBuilding: [place] [address] [place] [address] Repository 09/04/2017 [id number] Ambulatory [facility] ding:LAB Repository 08/31/2017 [id number] Agyepong, Ambulatory BMSBuilding: [place] Ezra BMS.[facility] Repository 08/31/2017 [id number] Agyepong, Ambulatory BMSBuilding: [place] Ezra BMS.[facility] Repository 08/31/2017 [id number] Agyepong, Ambulatory BMSBuilding: [place] Ezra BMS.[facility] Repository 08/31/2017 [id number] Agyepong, Ambulatory BMSBuilding: [place] Ezra BMS.[facility] Repository 08/31/2017/09/02/19 [id number] Agyepong, Ambulatory [address] ding:PCURoom Repository : NNC551Rfh: 1 08/17/2017 [id number] [facility] ding:LAB.FUT Repository URE 05/25/2017/05/26/19 [id number] Ambulatory [address] Repository 05/25/2017/05/27/19 [id number] Ambulatory [address] Repository 05/22/2017 [id number] [facility] ding:LAB.FUT Repository URE 05/09/2017 [id number] [facility] ding:LAB.FUT Repository URE PAYERS PAYERS ENCOUNTER GUARANTOR PAYER SUBSCRIBER SOURCE 03/07/2018 ANGIE D Primary ANGIE D [place] [id number] TR Insurance:HUMANA GOLD [place]: [place], MEDICAREPolicy [email or web address] [address]Ccl: Number: Repository [id number] (HP) Date:[id number] [address] [address]YQ: 03/07/2018 Secondary NOT GIVENUNK [place] Insurance:SELF PAY [facility] Number: Effective Repository Date:2018-03-02 02/23/2018 ANGIE D Primary ANGIE D [place] [id number] TR Insurance:HUMANA GOLD GRE[place]OB: [place], MEDICAREPolicy [id number] Hospital [place] [address]Zth: Number: Repository [id number] (HP) Date:7499-76-75DV [address] [address]TD: 02/23/2018 Secondary NOT GIVENUNK [place] Insurance:SELF PAY [facility] Number: Effective Repository Date:2018-01-30 01/30/2018 ANGIE D Primary ANGIE D [place] [id number] TR Insurance:HUMANA GOLD GRE[place]OB: [place], MEDICAREPolicy [id number] [place] [address]Hwj: Number: Repository [id number] (HP) Date:8021-51-49DK [address] [address]VL: 01/30/2018 Secondary NOT GIVENUNK [place] Insurance:SELF PAY [facility] Number: Effective Repository Date:2018-01-30 01/24/2018 ANGIE D Primary ANGIE D [place] [id number] TR Insurance:HUMANA GOLD GREENDOB: [place], MEDICAREPolicy [id number] [address]Tel: Number: Repository [id number] (HP) Date:7152-84-07VR [address] [address]NE: 01/24/2018 Secondary NOT GIVENUNK [place] Insurance:SELF PAY [facility] Number: Effective Repository Date:2017-12-07 01/15/2018 ANGIE D Primary ANGIE D [place] [id number] TR Insurance:HUMANA GOLD GREENDOB: [place], MEDICAREPolicy [id number] [address]Tel: Number: Repository [id number] (HP) Date:[id number] [address] [address]AB: 01/15/2018 Secondary NOT GIVENUNK [place] Insurance:SELF PAY [facility] Number: Effective Repository Date:2017-12-07 12/15/2017 ANGIE D Primary ANGIE D [place] [id number] TR Insurance:HUMANA GOLD GRE[place]OB: [place], MEDICAREPolicy [id number] [place] [address]Tel: Number: Repository [id number] (HP) Date:6266-64-01OS [address] [address]II: 12/15/2017 Secondary NOT GIVENUNK [place] Insurance:SELF PAY [facility] Number: Effective Repository Date:2017-12-13 11/27/2017 ANGIE D Primary ANGIE D [place] [id number] TR Insurance:HUMANA GOLD GREENDOB: [place], MEDICAREPolicy [id number] [place] [address]Fnr: Number: Repository [id number] (HP) Date:[id number] [address] [address]OI: 11/27/2017 Secondary NOT GIVENUNK [place] Insurance:SELF PAY [facility] Number: Effective Repository Date:2017-11-27 11/23/2017 ANGIE D Primary ANGIE D [place] [id number] TR Insurance:HUMANA GOLD GRE[place]OB: [place], MEDICAREPolicy [id number] [facility]es [email or web address] [id number]: Number: Repository [id number] (HP) Date:4638-55-06VW [address] [address]MP: 11/23/2017 Secondary NOT GIVENUNK [place] Insurance:SELF PAY [facility] Number: Effective Repository Date:2017-11-23 11/23/2017 ANGIE D Primary ANGIE D [place] [id number] TR Insurance:HUMANA POLLO DIXONDOB: [place], MEDICAREPolicy [id number] Crosses Regional [facility] [[email or web address] [address]Frz: Number: Repository [id number] (HP) Date:7218-36-68PV [address] [address]AI: 11/23/2017 Secondary NOT GIVENUNK [place] Insurance:SELF PAY [facility] Number: Effective Repository Date:2017-09-21 11/17/2017 ANGIE D Primary ANGIE D [place] [id number] TR Insurance:HUMANA POLLO GREENDOB: [place], MEDICAREPolicy [id number] [facility]es [facility] [[email or web address] [address]Lre: Number: Repository [id number] (HP) Date:5077-21-92PZ [address] [address]CQ: 11/17/2017 Secondary NOT GIVENUNK [place] Insurance:SELF PAY [facility] Number: Effective Repository Date:2017-11-17 11/08/2017 ANGIE D Primary ANGIE D [facility] [place] GREENDOB: Insurance:HUMANA GREENDOB: [facility] MEDICARE PPOPolicy [id number] Repository [facility] [address] Number: [facility]LIM[facility] [id number] [address]Gag: Date: (HP) 11/07/2017 ANGIE D Primary ANGIE D [place] [id number] TR Insurance:HUMANA POLLO GRE[place]OB: [place], MEDICAREPolicy [email or web address] [address]Tvt: Number: Repository [id number] (HP) Date:4491-82-19FK [address] [place] [address]IJ: 11/07/2017 Secondary NOT GIVENUNK [place] Insurance:SELF PAY [facility] Number: Effective Repository Date:2017-11-07 11/07/2017 ANGIE D Primary ANGIE D [place] [id number] TR Insurance:HUMANA POLLO KINGB: [place], MEDICAREPolicy [id number] [place] [address]Hif: Number: Repository [id number] (HP) Date:9462-77-03NQ [address] [place] [address]MP: 11/07/2017 Secondary NOT GIVENUNK [place] Insurance:SELF PAY [facility] Number: Effective Repository Date:2017-11-07 11/07/2017 ANGIE D Primary ANGIE D [place] [id number] TR Insurance:HUMANA POLLO GREENDOB: [place], MEDICAREPolicy [id number] [facility] [[email or web address]] [address]Hgk: Number: Repository [id number] (HP) Date:6022-92-62PS [address] [place] [address]MY: 11/07/2017 Secondary NOT GIVENUNK [place] Insurance:SELF PAY Community [facility] Number: Effective Repository Date:2017-11-07 11/07/2017 ANGIE D Primary ANGIE D [place] [id number] TR Insurance:HUMANA GOLD GREENDOB: [place], MEDICAREPolicy [id number] [email or web address]] [address]Jvw: Number: Repository [id number] (HP) Date:3053-30-50[place] [address]WP: 11/07/2017 Secondary NOT GIVENUNK [place] Insurance:SELF PAY [facility] Number: Effective Repository Date:2017-11-07 11/07/2017 ANGIE D Primary ANGIE D [place] [id number] TR Insurance:HUMANA GOLD GREENDOB: [place], MEDICAREPolicy [id number] [facility] [[email or web address]] [address]Hee: Number: Repository [id number] (HP) Date:0350-75-71IV [address]46[address]WP: 11/07/2017 Secondary NOT GIVENUNK [place] Insurance:SELF PAY [facility] Number: Effective Repository Date:2017-11-07 10/13/2017 ANGIE D Primary ANGIE D [place] [id number] TR Insurance:HUMANA GOLD GRE[place]OB: [place], MEDICAREPolicy [id number] [place] [id number]: Number: Repository [id number] (HP) Date:4125-96-11GN [address] [address]ZW: 10/13/2017 Secondary NOT GIVENUNK [place] Insurance:SELF PAY [facility] Number: Effective Repository Date:2017-10-13 10/06/2017 ANGIE D Primary ANGIE D [place] [id number] TR Insurance:HUMANA GOLD GREENDOB: [place] [address], MEDICAREPolicy [id number] [id number]: Number: Repository [id number] (HP) Date:6730-00-45DV [address] [place] [address]JS: 10/06/2017 Secondary NOT GIVENUNK [place] Insurance:SELF PAY [facility] Number: Effective Repository Date:2017-10-11 10/06/2017 ANGIE D Primary ANGIE D [place] [id number] TR Insurance:HUMANA GOLD GRE[place]OB: [place], MEDICAREPolicy [id number] [address]Tel: Number: Repository [id number] (HP) Date:2133-37-57XJ [address] [place] [address]OB: 10/06/2017 Secondary NOT GIVENUNK [place] Insurance:SELF PAY [facility] Number: Effective Repository Date:2017-10-06 10/05/2017 ANGIE D Primary ANGIE D [place] [id number] TR Insurance:HUMANA GOLD GREENDOB: [place], MEDICAREPolicy [id number] Ville [address]Tel: Number: Repository [id number] (HP) Date:7709-31-86LG [address] [address]RO: 10/05/2017 Secondary NOT GIVENUNK [place] Insurance:SELF PAY [facility] Number: Effective Repository Date:2017-10-05 10/05/2017 ANGIE D Primary ANGIE D [place] [id number] TR Insurance:HUMANA GOLD GREENDOB: [place], MEDICAREPolicy [id number] Ville [address]Tel: Number: Repository [id number] (HP) Date:5006-05-14QS [address] [place] [address]CG: 10/05/2017 Secondary NOT GIVENUNK [place] Insurance:SELF PAY [facility] Number: Effective Repository Date:2017-09-22 10/02/2017 ANGIE D Primary ANGIE D [place] [id number] TR Insurance:HUMANA GOLD GREENDOB: [place] [address], MEDICAREPolicy [id number] [place] [id number]: Number: Repository [id number] (HP) Date:1854-13-49GC [address] [place] [address]OP: 10/02/2017 Secondary NOT GIVENUNK [place] Insurance:SELF PAY [facility] Number: Effective Repository Date:2017-10-02 10/02/2017 ANGIE D Primary ANGIE D [place] [id number] TR Insurance:HUMANA POLLO GREENDOB: [place] [address], MEDICAREPolicy [id number] [facility]es [facility] [[email or web address]] [address]Dxc: Number: Repository [id number] (HP) Date:2689-09-93QN [address] [place] [address]PW: 10/02/2017 Secondary NOT GIVENUNK [place] Insurance:SELF PAY [facility] Number: Effective Repository Date:2017-09-07 09/29/2017 ANGIE D Primary ANGIE D [place] [id number] TR Insurance:HUMANA POLLO DIXONDOB: [place] [address], MEDICAREPolicy [id number] Crosses Regional Hospital [[email or web address]] [address]Bdu: Number: Repository [id number] (HP) Date:6871-11-53QJ [address] [address]YT: 09/29/2017 Secondary NOT GIVENUNK [place] Insurance:SELF PAY [facility] Number: Effective Repository Date:2017-09-29 09/22/2017 ANGIE D Primary ANGIE D [place] [id number] TR Insurance:HUMANA POLLO DIXONDOB: [place] [address], MEDICAREPolicy [id number] [address]Egv: Number: Repository [id number] (HP) Date:5983-48-27HB [address] [place] [address]PR: 09/22/2017 Secondary NOT GIVENUNK [place] Insurance:SELF PAY [facility] Number: Effective Repository Date:2017-09-22 09/22/2017 ANGIE D Primary ANGIE D [place] [id number] Insurance:HUMANA GOLD GREENDOB: Community [address] MEDICAREPolicy [id number], Number: Repository [place] [id number]: [id number] Date:0988-83-43MM [address] () [address] [place] [address]WP: 09/22/2017 Secondary NOT GIVENUNK [place] Insurance:SELF PAY [facility] Number: Effective Repository Date:2017-09-22 09/14/2017 ANGIE D Primary ANGIE D [place] [id number] TR Insurance:HUMANA GOLD GREENDOB: [place] [address], MEDICAREPolicy [id number] [place] [id number]: Number: Repository [id number] () Date:9192-53-22GE [address] [place], [place] [address]WP: 09/14/2017 Secondary NOT GIVENUNK [place] Insurance:SELF PAY [facility] Number: Effective Repository Date:2017-09-13 09/05/2017 ANGIE D Primary ANGIE D [place] [id number] TR Insurance:HUMANA GOLD GREENDOB: [place] [address], MEDICAREPolicy [id number] [place] [address]Org: Number: Repository [id number] () Date:7276-40-81YH [address] [place] [address]OM: 09/05/2017 Secondary NOT GIVENUNK [place] Insurance:SELF PAY [facility] Number: Effective Repository Date:2017-09-05 09/05/2017 ANGIE D Primary ANGIE D [place] [id number] TR Insurance:HUMANA GOLD GREENDOB: [place] [address], MEDICAREPolicy [id number] [place] [address]Mct: Number: Repository [id number] (HP) Date:9244-86-92WH [address] [place] [address]HK: 09/05/2017 Secondary NOT GIVENUNK [place] Insurance:SELF PAY [facility] Number: Effective Repository Date:2017-09-05 09/05/2017 ANGIE D Primary ANGIE D [place] [id number] TR Insurance:HUMANA GOLD GREENDOB: [place], MEDICAREPolicy [id number] [address]Tel: Number: Repository [id number] (HP) Date:5243-22-97EH [address] [address]CZ: 09/05/2017 Secondary NOT GIVENUNK [place] Insurance:SELF PAY [facility] Number: Effective Repository Date:2017-09-05 09/05/2017 ANGIE D Primary ANGIE D [place] [id number] TR Insurance:HUMANA GOLD GREENDOB: [place], MEDICAREPolicy [id number] [id number]: Number: Repository [id number] (HP) Date:6587-48-39UD[address] [address]BK: 09/05/2017 Secondary NOT GIVENUNK [place] Insurance:SELF PAY [facility] Number: Effective Repository Date:2017-09-05 09/05/2017 ANGIE D Primary ANGIE D [place] [id number] TR Insurance:HUMANA GOLD GREENDOB: [place] [address], MEDICAREPolicy [id number] [place], [place] [address]Tel: Number: Repository [id number] (HP) Date:5213-19-88SI [address] [address]KR: 09/05/2017 Secondary NOT GIVENUNK [place] Insurance:SELF PAY [facility] Number: Effective Repository Date:2017-09-05 09/05/2017 ANGIE D Primary ANGIE D [place] [id number] TR Insurance:HUMANA GOLD GREENDOB: [place] [address], MEDICAREPolicy [id number] [facility] [[email or web address]] [address]Wgq: Number: Repository [id number] (HP) Date:4793-94-91UM [address] [place] [address]NU: 09/05/2017 Secondary NOT GIVENUNK [place] Insurance:SELF PAY [facility] Number: Effective Repository Date:2017-09-05 09/05/2017 ANGIE D Primary ANGIE D [place] [id number] TR Insurance:HUMANA GOLD GREENDOB: [place] [address], MEDICAREPolicy [id number] [place]ille [address]Tel: Number: Repository [id number] (HP) Date:1777-19-15HE [address] [address]NS: 09/05/2017 Secondary NOT GIVENUNK [place] Insurance:SELF PAY [facility] Number: Effective Repository Date:2017-09-05 09/05/2017 ANGIE D Primary ANGIE D [place] [id number] TR Insurance:HUMANA GOLD GREENDOB: [place], MEDICAREPolicy [id number] [place] [address]Aao: Number: Repository [id number] (HP) Date:8540-76-34PR [address] [address]PR: 09/05/2017 Secondary NOT GIVENUNK [place] Insurance:SELF PAY [facility] Number: Effective Repository Date:2017-09-04 09/05/2017 ANGIE D Primary ANGIE D [place] [id number] TR Insurance:HUMANA GOLD GREENDOB: [place], MEDICAREPolicy [id number] [place] [id number]: Number: Repository [id number] (HP) Date:3875-63-82UY [address] [address]LS: 09/05/2017 Secondary NOT GIVENUNK [place] Insurance:SELF PAY [facility] Number: Effective Repository Date:2017-09-05 09/04/2017 ANGIE D Primary ANGIE D [place] [id number] TR Insurance:HUMANA GOLD GREENDOB: [place] [address], MEDICAREPolicy [id number] [facility]es [facility] [[email or web address]] [address]Ptu: Number: Repository [id number] (HP) Date:6492-14-84DL [address] [place] [address]WP: 09/04/2017 Secondary NOT GIVENUNK [place] Insurance:SELF PAY [facility] Number: Effective Repository Date:2017-09-04 08/31/2017 ANGIE D Primary ANGIE D [place] [id number] TR Insurance:HUMANA GOLD GREENDOB: [place], MEDICAREPolicy [id number] [place] [id number]: Number: Repository [id number] (HP) Date:6131-24-08QY [address] [address]JM: 08/31/2017 Secondary NOT GIVENUNK [place] Insurance:SELF PAY [facility] Number: Effective Repository Date:2017-08-31 08/31/2017 ANGIE D Primary ANGIE D [place] [id number] TR Insurance:HUMANA GOLD GRE[place]OB: [place], MEDICAREPolicy [id number] [place] [id number]: Number: Repository [id number] (HP) Date:4862-08-23VT [address] [address]XV: 08/31/2017 Secondary NOT GIVENUNK [place] Insurance:SELF PAY [facility] Number: Effective Repository Date:2017-08-31 08/31/2017 ANGIE D Primary ANGIE D [place] [id number] TR Insurance:HUMANA GOLD GREENDOB: [place], MEDICAREPolicy [id number] [place] [address]Tel: Number: Repository [id number] (HP) Date:1669-81-72HK [address] [address]QS: 08/31/2017 Secondary NOT GIVENUNK [place] Insurance:SELF PAY [facility] Number: Effective Repository Date:2017-08-31 08/31/2017 ANGIE D Primary ANGIE D [place] [id number] TR Insurance:HUMANA GOLD GREENDOB: [place] [address], MEDICAREPolicy [id number] [address]Fcd: Number: Repository [id number] (HP) Date:6567-34-06[place] [address]WP: 08/31/2017 Secondary NOT GIVENUNK [place] Insurance:SELF PAY [facility] Number: Effective Repository Date:2017-08-31 08/31/2017 ANGIE D Primary ANGIE D [place] [id number] TR Insurance:HUMANA GOLD GREENDOB: [place], MEDICAREPolicy [id number] [facility] [[email or web address]] [address]Kfx: Number: Repository [id number] (HP) Date:9712-79-10JY [address] [address]ZU: 08/31/2017 Secondary NOT GIVENUNK [place] Insurance:SELF PAY [facility] Number: Effective Repository Date:2017-08-31 08/17/2017 ANGIE D Primary ANGIE D [place] [id number] TR Insurance:HUMANA GOLD GREENDOB: [place], MEDICAREPolicy [id number] [place] [address]Yad: Number: Repository [id number] (HP) Date:8748-60-79RV [address] [address]VL: 08/17/2017 Secondary NOT GIVENUNK [place] Insurance:SELF PAY [facility] Number: Effective Repository Date:2017-05-17 05/22/2017 ANGIE D Primary ANGIE D [place] [id number] TR Insurance:HUMANA POLLO GRE[place]OB: [place], MEDICAREPolicy [id number] [facility]es [facility] [[email or web address]] [address]Xyj: Number: Repository [id number] (HP) Date:3473-01-64DL [address] [place] [address]AG: 05/22/2017 Secondary NOT GIVENUNK [place] Insurance:SELF PAY [facility] Number: Effective Repository Date:2017-05-22 05/09/2017 ANGIE D Primary ANGIE D [place] [id number] TR Insurance:HUMANA POLLO DIXONDOB: [place] [address], MEDICAREPolicy [id number] [facility]es [facility] [[email or web address]] [address]Awx: Number: Repository [id number] (HP) Date:1652-25-09MB [address] [place] [address]XW: 05/09/2017 Secondary NOT GIVENUNK [place] Insurance:SELF PAY [facility] Number: Effective Repository Date:2017-01-25
== END ==
PROVIDERS: Family Provider Family Medicine; PCP Family Medicine; Visit Provider Internal Medicine Nephrology
DX: N25.81 Secondary hyperparathyroidism of renal origin (principal)
CPT/HCPCS: 36415; 83970

== ENCOUNTER → 2018-02-23 12:54 | Outpatient (CLI) | payer MEDICARE, SELFPAY ==
[2017-11-23 14:50] VITALS: BMI 25.7
[2018-02-23 14:49] LABS: PTHIN 106.8 pg/mL (18.4-80.1)
== END ==
PROVIDERS: Family Provider Family Medicine; PCP Family Medicine; Referring Provider Internal Medicine Nephrology; Visit Provider Internal Medicine Nephrology
DX: N25.81 Secondary hyperparathyroidism of renal origin (principal)
CPT/HCPCS: 36415; 83970

== ENCOUNTER → 2018-04-20 10:11 | Outpatient (CLI) | payer MEDICARE, SELFPAY ==
[2017-11-23 14:50] VITALS: BMI 25.7
[2018-04-20 11:08] LABS: Hematocrit 35.3 % (40-54); Hemoglobin 11.4 g/dl (13.0-16.5); Mean Corp Hgb Conc 32.3 g/gl (32-36); Mean Corpuscular Hgb 29.5 pg (27.0-32.0); Mean Corpuscular Volume 91.5 fL (80-94); Mean Platelet Vol. 10.9 fl (6.2-12.0); Platelet Count 179 K/mm3 (150-450); RBC Distribution Width CV 14.1 % (11.6-14.6); RBC Distribution Width SD 46.4 fl (35.1-43.9); Red Blood Count 3.86 M/mm3 (4.6-6.2); White Blood Count 8.6 K/mm3 (4.4-11.0)
[2018-04-20 11:09] LABS: Scan Indicated on CBC? Y/N NO
[2018-04-20 11:32] LABS: Hemoglobin A1c 7.3 % (4.2-6.3)
[2018-04-20 11:33] LABS: PTHIN 148.9 pg/mL (18.4-80.1)
[2018-04-20 11:34] LABS: ALB/GLOB Ratio 0.9 RATIO (0.9-2.4); AST(SGOT) 19 U/L (15-37); Alanine Aminotransfer ALT/SGPT 19 U/L (16-61); Albumin, Serum 3.4 g/dL (3.2-5.0); Alkaline Phosphatase 86 U/L (45-117); BUN 51 mg/dL (7-18); BUN/Creat Ratio 16.6 RATIO (10-20); Calcium,Total 8.5 mg/dL (8.5-10.1); Creatinine, Serum 3.07 mg/dL (0.70-1.30); EST Glomerular Filtration Rate 21 mL/min (>60); Est Glom Filt Rate - Afr Amer 26 mL/min (>60); Globulin 3.6 g/dL (2.2-4.2); Glucose 213 mg/dL (74-106)
[2018-04-20 11:35] LABS: Anion Gap 9 (5-15); Chloride 105 mmol/L (98-107); Cholesterol 236 mg/dL (200); High Density Lipoprotein 55 mg/dL; Potassium 5.3 mmol/L (3.5-5.1); Sodium Level 135 mmol/L (136-145); Triglycerides 150 mg/dL; Very Low Density Lipoprotein 30 mg/dL (5-40)
[2018-04-20 14:29] LABS: Phosphorus 4.1 mg/dL (2.5-4.9)
== END ==
PROVIDERS: Family Provider Family Medicine; PCP Family Medicine; Referring Provider Internal Medicine Nephrology; Visit Provider Internal Medicine Nephrology
DX: I12.9 Hypertensive chronic kidney disease with stage 1 through stage 4 chronic kidney disease, or unspecified chronic kidney disease (principal); E11.22 Type 2 diabetes mellitus with diabetic chronic kidney disease; N18.4 Chronic kidney disease, stage 4 (severe); N25.81 Secondary hyperparathyroidism of renal origin; D64.9 Anemia, unspecified; Z79.4 Long term (current) use of insulin; E78.5 Hyperlipidemia, unspecified
CPT/HCPCS: 36415; 80053; 80061; 83036; 83970; 84100; 85027

== ENCOUNTER 2018-06-02 12:00 | Inpatient (IN) | payer MEDICARE, SELFPAY ==
[2018-04-20 11:06] VITALS: BMI 25.8
[2018-06-02] VITALS (12 sets, daily range): BP systolic 144–195; BP diastolic 79–119; PULSE 84–102; RESP 18–20; TEMP 36.5–37; O2SAT 93–97; BMI 28.1; BMI 24.0
--- NOTE | 2018-06-02 12:30 | RAD_ITS ---
STUDY: X-RAY CHEST REASON FOR EXAM: Male, 73 years old. Chest pain TECHNIQUE: Single AP portable view of the chest. COMPARISON: 11/07/2017 FINDINGS: Lungs are adequately inflated. Patchy airspace disease in the right lower lobe. Left lung is clear. Sternal cerclage wires are present from a prior sternotomy. Mild cardiomegaly. Left chest wall pacer device is stable. Normal mediastinum and giovanni. Normal visualized pulmonary arteries. There is atherosclerotic tortuosity of the aortic arch and descending thoracic aorta. There is a dextroscoliosis of the thoracic spine. Normal visualized ribs, clavicles, and shoulders. There is no demonstrated abnormality of the visualized soft tissue structures of the upper abdomen. RAD/Chest 1 View (Portable) IMPRESSION: Right lower lobe airspace disease could represent infection Electronically Signed: Saud Juarez DO at 13:26 EDT Tel , Service support ,
--- NOTE | 2018-06-02 12:30 | EKG12_ITS ---
Test Reason : SOB Blood Pressure : / mmHG Vent. Rate : 100 BPM Atrial Rate : 100 BPM P-R Int : 154 ms QRS Dur : 112 ms QT Int : 396 ms P-R-T Axes : 014 072 -78 degrees QTc Int : 510 ms Normal sinus rhythm Incomplete left bundle branch block Left ventricular hypertrophy Nonspecific ST and T wave abnormality Prolonged QT Abnormal ECG Confirmed by RODRICK CABRERA, ALAINA ([id number]), legal editor TEA BATISTA ([id number]) on 06/05/2018 2:01:43 PM Referred By: VALENTIN Confirmed By:ALAINA MENSAH MD
--- NOTE | 2018-06-02 12:32 | ED.VISSUMM ---
- ER Visit Summary Date of Service: 06/02/18 Chief Complaint: Shortness of breath, chest pain History of Present Illness: The patient is a 73 M presenting with shortness of breath, chest pain. He states he has been short of breath for the past couple of weeks intermittently. He has been seen by his primary care physician and is on an unknown antibiotic for pneumonia. He states he has a few days left of his antibiotic. He has a mild cough. He states he has been more short of breath when he walks around. He has been having intermittent chest pain and pain between his shoulder blades. He does not wear home O2. He has a history of CAD, diabetes, hypertension, hypercholesterolemia, ischemic cardiomyopathy, chronic kidney disease, PE. Physical Examination: Vitals are stable. Patient is afebrile. Alert no acute distress. HEENT exam is unremarkable. Neck is supple. Lungs are diminished bilaterally. Heart is regular rate and rhythm. Abdomen is soft nontender nondistended. Extremities are unremarkable. Skin is warm and dry. No focal neurologic deficit. Remainder of exam is unremarkable. Emergency Department Course and Treatment: Patient was given aspirin on arrival. CBC normal except for hemoglobin 10.7. Chemistries showed glucose 289, BUN 59, creatinine 3.46. Troponin 0.162. D-dimer 0.88. Unable to obtain CTA chest due to elevated creatinine. Chest x-ray shows right lower lobe airspace disease. With ambulation his pulse ox was 89% he became tachypneic, nauseated, and had near syncope. Patient is on an unknown antibiotic currently for pneumonia. Blood cultures were sent. He was given Levaquin IV. Discussed with the hospitalist for admission. Disposition: Admission Impression: Community acquired pneumonia, failed outpatient treatment, hypoxia, CHF This note was generated with [employer] dictation software. It may contain incorrect words, spelling, and punctuation that were not noted in review of the chart prior to signing ED Disposition - Plan for ED Patient: Referrals: Prasad Concepcion III, MD [Primary Care Provider] -
[2018-06-02 12:56] LABS: Basophil# 0.08 X10^3/uL; Basophil% 1.2 % (0-1); Differential Indicated SCAN CRITERIA MET; Eosinophil# 0.71 X10^3/uL; Eosinophils% 10.3 % (0-5); Hematocrit 32.2 % (40-54); Hemoglobin 10.7 g/dl (13.0-16.5); Lymphocyte % 5.8 % (19-41); Mean Corp Hgb Conc 33.2 g/gl (32-36); Mean Corpuscular Hgb 29.9 pg (27.0-32.0); Mean Corpuscular Volume 89.9 fL (80-94); Mean Platelet Vol. 10.1 fl (6.2-12.0); Monocyte# 0.67 X10^3/uL; Monocyte% 9.7 % (0-10); Neutrophil # 5.04 X10^3/uL (2.7-7.7); POSITIVE COUNT NO; POSITIVE DIFFERENTIAL YES; POSITIVE MORPHOLOGY NO; Platelet Count 212 K/mm3 (150-450); RBC Distribution Width CV 14.7 % (11.6-14.6); RBC Distribution Width SD 48.4 fl (35.1-43.9); Red Blood Count 3.58 M/mm3 (4.6-6.2); White Blood Count 6.9 K/mm3 (4.4-11.0)
[2018-06-02] MEDS: Aspirin 81 MG TAB.CHEW 324 MG PO (12:56)
[2018-06-02 13:06] LABS: D-Dimer Quantitative (DVT/PE) 0.88 FEU/ug/m (0.27-0.49)
[2018-06-02 13:17] LABS: BUN 59 mg/dL (7-18); Creatinine, Serum 3.46 mg/dL (0.70-1.30); Estimated Creatinine Clearance 18.12 ml/min; Glucose 289 mg/dL (74-106)
[2018-06-02 13:18] LABS: Anion Gap 8 (5-15); BUN/Creat Ratio 17.1 RATIO (10-20); Calcium,Total 8.6 mg/dL (8.5-10.1); Chloride 108 mmol/L (98-107); EST Glomerular Filtration Rate 19 mL/min (>60); Est Glom Filt Rate - Afr Amer 22 mL/min (>60); Potassium 3.7 mmol/L (3.5-5.1); Sodium Level 137 mmol/L (136-145)
--- NOTE | 2018-06-02 14:12 | HP.PCM_ITS ---
History of Present Illness Date of Admission: 06/02/18 Chief Complaint: Chest pain, shortness of breath -ongoing for weeks The patient is a 73 year old M with past medical history of CHF, EF 30%, CAD status post CABG, status post stents, status post ICD, CKD stage IV who follows with Dr. Royal comes in with complaints of chest pain ongoing for weeks. Patient has intermittent pain between his shoulder blades that radiates anteriorly to his sternal region, he describes the pain as burning. Denied any left-sided chest pain or dizziness or diaphoresis. This is usually associated with some nausea ,occasional bloatedness but no abdominal pain or belching. Patient feels that he is allergic to milk and may be some of these events are related to when he takes milk. He was recently diagnosed with pneumonia and started on a 10-day course of doxycycline. He will completed the doxycycline on 06/05/18. He denied any fever or chills or sputum production. He denied any orthopnea or PND or leg swelling. Vitals in the ED show blood pressure 144/87, temperature 97.7 F, heart rate 101, respiratory rate was 18, SPO2 is 96% on room air. His admitting blood work shows W BC count of 6.9, hemoglobin 10.7, platelet 212, d-dimer 0.88, sodium 137, potassium 3.7, chloride 108, HCO3 21, BUN 59, Cr 3.46, Glucose 289, Troponins 0.162. EKG is unchanged from previous. Admitting chest x-ray shows a right lower lobe airspace disease. Past Medical History Past Medical History (Chronic Problems): Chronic Problems (Last Reviewed 04/20/18 @ 11:02 by Bessy Lr) Stented coronary artery (Chronic 11/08/17) Mildly elevated troponin: cutting balloon angioplasty ([place] Balloon 3.0 X 10 mm) and ALBERTO (Synergy 4.0 X 8 mm) placed from proximal to mid left main per Dr. Bustos [facility] History of right and left heart catheterization (Chronic 11/08/17) Per Dr. Bustos [facility]>followed by cutting ballon angioplasty and ALBERTO to left main CAD (coronary artery disease) (Chronic) S/P PTCA (percutaneous transluminal coronary angioplasty) (Chronic) Implantable cardioverter-defibrillator (ICD) in situ (Chronic) Ischemic cardiomyopathy (Chronic) 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 Buitrago @ [facility] History of left heart catheterization (Chronic 09/06/17) Atherosclerotic heart disease of [place] coronary artery with other forms of angina pectoris (Chronic) CHARLES to LAD, SVG to RCA and SVG to CX per Dr. Buitrago @ [facility] 09/27/06. Mildly elevated troponin: cutting balloon angioplasty ([place] Balloon 3.0 X 10 mm) and ALBERTO (Synergy 4.0 X 8 mm) placed from proximal to mid left main per Dr. 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 Buitrago @ [facility] 09/27/06. Mildly elevated troponin: cutting balloon angioplasty ([place] Balloon 3.0 X 10 mm) and ALBERTO (Synergy 4.0 X 8 mm) placed from proximal to mid left main per Dr. Bustos, [facility] 11/08/17 DM2 (diabetes mellitus, type 2) (Chronic) E11.9 CKD (chronic kidney disease), stage IV (Chronic) N18.4 History of pulmonary embolism (Chronic) Z86.711 Provoked History of hypertension (Chronic) Z86.79 History of hyperlipidemia (Chronic) Z86.39 History of gout (Chronic) Z87.39 Agent orange exposure (Chronic) Z77.098 Allergies atorvastatin calcium [From Lipitor] Allergy (Verified 06/02/18 12:01) Pain in joints verapamil [From Covera-HS] Allergy (Verified 06/02/18 12:01) passes out lisinopril Adverse Reaction (Verified 06/02/18 12:01) Other muscle pain Niacin Preparations Adverse Reaction (Verified 06/02/18 12:01) Pain in joints Cholesterol Meds Adverse Reaction (Uncoded 06/02/18 12:01) Other Home Medications: Ambulatory Orders Medication Instructions Recorded Insulin Glargine,Hum.rec.anlog 14 unit SQ BREAKFAST 08/20/15 [Lantus] Clopidogrel Bisulfate [Plavix] 75 mg PO DAILY #0 12/04/15 Carvedilol [Coreg (Beta Pedro)] 25 mg PO BID #90 tab 09/08/17 Aspirin E.C. [Ecotrin] 81 mg PO DAILY 11/07/17 Slow Release Iron 45 mg PO DAILY 11/07/17 Venlafaxine HCl [Venlafaxine HCl 150 mg PO DAILY 11/07/17 ER] hydrALAZINE [Apresoline] 50 mg PO BID 11/07/17 allopurinol 100 mg tablet 100 mg PO DAILY tab 11/21/17 diltiazem CD 120 mg 120 mg PO DAILY 11/21/17 capsule,extended release 24 hr pantoprazole 40 mg tablet,delayed 40 mg PO DAILY 11/21/17 release isosorbide mononitrate ER 30 mg 30 mg PO DAILY 11/27/17 tablet,extended release 24 hr calcitriol 0.25 mcg capsule 0.25 mcg PO DAILY cap 04/20/18 trazodone 50 mg tablet 50 mg PO QHS 04/20/18 Doxycycline [Vibramycin] 100 mg PO BID 06/02/18 Sucralfate [Carafate] 1 gm PO BIDCM 06/02/18 Surgical History: Surgical History (Last Reviewed 04/20/18 @ 11:02 by Bessy Lr) Stented coronary artery (Chronic) Onset Date: 11/08/17 Z95.5 Mildly elevated troponin: cutting balloon angioplasty ([place] Balloon 3.0 X 10 mm) and ALBERTO (Synergy 4.0 X 8 mm) placed from proximal to mid left main per Dr. Bustos, [facility] History of right and left heart catheterization (Chronic) Onset Date: 11/08/[address] Bustos, [facility]>followed by cutting ballon angioplasty and ALBERTO to left main S/P PTCA (percutaneous transluminal coronary angioplasty) (Chronic) Z98.61 History of coronary artery bypass graft x 3 (Chronic) Onset Date: 09/27/06 Z95.1 CHARLES to LAD, SVG to RCA and SVG to CX per Dr. Buitrago @ [facility] History of left heart catheterization (Chronic) Onset Date: 09/06/17 Z98.890 History of colostomy (Chronic) Z98.890 Surgical History: - - History of ruptured bowel status post colostomy, PCI, CABG, appendectomy, hernia repair. Psychiatric History: Anxiety, Depression Smoking Status: Former smoker Tobacco Use: Non-smoker Alcohol: None Drugs: None - *Family History Sibling Family History: Family History (Last Reviewed 04/20/18 @ 11:02 by Bessy Lr) Unknown No problems noted. History Items: Diabetes, Heart Disease Maternal Family History: Family History (Last Reviewed 04/20/18 @ 11:02 by Bessy Lr) Unknown No problems noted. History Items: Heart Disease Paternal Family History: Family History (Last Reviewed 04/20/18 @ 11:02 by Bessy Lr) Unknown No problems noted. History Items: Heart Disease Review of Systems Constitutional: Reports: Weakness. Denies: Anorexia, Chills, Fever, Malaise, Weight Change, Fatigue Eyes: Denies: Blurred vision, Cataracts, Conjunctivae Inflammation, Pain, Redness, Vision Change HEENT: Denies: Difficulty Hearing, Difficulty Swallowing, Head Aches, Hearing Changes, Sinus Congestion, Sinus Drainage Cardiovascular: Denies: Chest Pain, Claudication, Orthopnea, Palpitations, Paroxysmal Noc. Dyspnea Respiratory: Denies: Cough, Pleuritic Pain, Shortness of Breath, Shortness of breath at rest, Shortness of breath upon exertion, Sputum production Gastrointestinal: Denies: Abdominal Pain, Hematemesis, Hematochezia, Nausea, Vomiting Genitourinary: Denies: Dysuria Musculoskeletal: Denies: Joint Pain, Joint stiffness, Joint swelling, Joint Tenderness Skin: Denies: Rash, Wounds Neurological: Denies: Numbness, Tingling, Focal weakness Psychiatric: Denies: Anxiety, Depression, Homicidal Ideations, Suicidal Ideations Hematologic/ Lymphatic: Denies: Easy Bruising, Easy Bleeding VTE Information - Inpt Only VTE Present on Admission: No VTE Pharm Prophylaxis ordered?: Yes - Physical Exam General: Alert, Oriented x3, Cooperative, No apparent distress HEENT: Atraumatic, PERRLA, EOMI, Normocephalic Oral: Moist Mucosa Neck: Supple Lungs: Clear to auscultation, Normal air movement, Diminished - at the lung exams Cardiovascular: Regular rate, Regular Rhythm, Normal S1, Normal S2, No murmurs Abdomen: Bowel Sounds Present, Soft, Non Tender, Non-Distended, No Hepato- splenomegaly Extremities: No edema Skin: No rashes, No breakdown Musculoskeletal: No Tenderness to Palpation of Joints or Extremities Lymphatic: No Cervical, Supraclavicular, or Inguinal Adenopathy Neurological: Cranial nerves II-XII grossly intact, Neuro grossly intact Psych/Mental Status: Normal Affect, Appropriate Vital Signs Temp Pulse Resp BP Pulse Ox 97.7 F L 101 H 18 144/87 H 97 06/02/18 12:02 06/02/18 12:02 06/02/18 12:02 06/02/18 12:02 06/02/18 12:53 Oxygen Delivery Method Room Air Weight: 83.915 kg Body Mass Index (BMI) 28.1 Laboratory Tests Past 24 Hrs 06/02/18 06/02/18 06/02/18 12:40 12:40 12:40 WBC 6.9 RBC 3.58 L Hgb 10.7 L Hct 32.2 L MCV 89.9 MCH 29.9 MCHC 33.2 RDW 14.7 H RDW Differential 48.4 H Plt Count 212 MPV 10.1 Immature Gran % (Auto) 0.000 Neut % (Auto) 73.0 H Lymph % (Auto) 5.8 L [place] % (Auto) 9.7 Eos % (Auto) 10.3 H Baso % (Auto) 1.2 H Absolute Neuts (auto) 5.0 Absolute Lymphs (auto) 0.40 L Total Counted Not Reportable D-Dimer Quant (PE/DVT) 0.88 H* Sodium 137 Potassium 3.7 Chloride 108 H Carbon Dioxide 21.0 Anion Gap 8 BUN 59 H Creatinine 3.46 H Estim Creat Clear Calc 18.12 Est GFR (MDRD) Af Amer 22 L Est GFR (MDRD) Non-Af 19 L BUN/Creatinine Ratio 17.1 Glucose 289 H Calcium 8.6 Troponin I 0.162 H Assessment/Plan All Active Problems (Last Reviewed 04/20/18 @ 11:02 by Bessy Lr) Chest pain (Acute) NSTEMI (non-ST elevated myocardial infarction) (Acute) Chest pain (Resolved) 73 year old M with past medical history of CHF, chronic systolic, EF 30%, CAD status post CABG, status post stents, status post ICD, CKD stage IV who follows with Dr. Royal comes in with complaints of chest pain ongoing for weeks. 1. Chest pain, likely related to GERD, on PPI, h/o CAD s/p CABG, low suspicion for PE Plan: Admit to [facility] [place] [place], monitor on telemetry, trend troponins, 2. Elevated D-dimer, age-adjusted, 0.88, Well's score 0, less likely to be due to PE, No tachycardia, no hypoxia likely D-dimer is elevated secondary to recent pneumonia cannot do CTA because of CKD stage 4, cannot do VQ scan because service is unavailable during the weekend. Will give one dose of Loveox 3. Elevated tropinins likely secondary to demand ischemia, h/o CAD s/p CABG, s/p stent Plan: Will trend troponins, repeat EKG prn 4. Recent CAP, no signs of sepsis, no hypoxia at rest, dropped to about 89% on ambulation, will be completing 10-day course of antibiotics on 06/05/18 Given 1 dose of Levaquin in the ED, will continue with ceftriaxone and doxycycline from tomorrow Switch to complete doxycycline if patient will be discharged tomorrow or after. 5. Chronic systolic CHF, EF 30%, underlying ischemic cardiomyopathy, status post ICD no signs of acute exacerbation 6. CKD stage IV, follows with Dr. Royal, creatinine slightly elevated compared to previous, patient reluctant to have fistula/vein mapping done Will trend renal function 7. DVT PPx- Given Lovenox SC x1 for elevated D-Dimer Code Visit OBSV E&M: [id number] Initial observation care L3
--- NOTE | 2018-06-02 14:13 | NURSING ---
MED SURG CAP PAINTSIL
--- NOTE | 2018-06-02 14:16 | NURSING ---
DR FALCON IN ROOM
[2018-06-02] MEDS: levoFLOXacin IV 750 MG/150 ML BAG 100 MG IV (14:35)
[2018-06-02] MEDS: Enoxaparin 80 MG/0.8 ML Syringe SC (16:52)
[2018-06-02] MEDS: Insulin Lispro 100 UNIT/ML INSULN.PEN SQ (16:52)
[2018-06-02] MEDS: Pantoprazole Sodium 40 MG Tablet PO (17:50)
[2018-06-02] MEDS: Clopidogrel Bisulfate 75 MG Tablet PO (18:30)
--- NOTE | 2018-06-02 19:40 | PCM.PN.BLA ---
Progress Note Patient's troponins were trended and elevated to 1.830. Patient has substernal burning/dyspepsia feeling. Will get EKG, transfer pt to PCU Discussed with Dr. Teague, will continue on aspirin, plavix, add nitro paste Patient had already received Lovenox 80mg SC X1 earlier Will continue on Heparin drip from tomorrow morning
--- NOTE | 2018-06-02 19:42 | NURSING ---
report called to silvestre in pcu, pt will transfer to [id number]
--- NOTE | 2018-06-02 20:20 | EKG12_ITS ---
Test Reason : CP Blood Pressure : / mmHG Vent. Rate : 089 BPM Atrial Rate : 089 BPM P-R Int : 162 ms QRS Dur : 110 ms QT Int : 402 ms P-R-T Axes : 028 062 232 degrees QTc Int : 489 ms Sinus rhythm with Premature atrial complexes Left bundle branch block Marked ST abnormality, possible lateral subendocardial injury Prolonged QT Abnormal ECG When compared with ECG of 02-JUN-2018 13:27, MANUAL COMPARISON REQUIRED, DATA IS UNCONFIRMED Confirmed by LORRI SANFORD ([id number]), scientific publications editor YINKA CHRISTOPHER ([id number]) on 06/07/2018 11:01:37 AM Referred By: EZEKIEL Confirmed By:LORRI SANFORD
[2018-06-02] MEDS: hydrALAZINE 50 MG Tablet PO (22:23)
[2018-06-02] MEDS: traZODone 50 MG Tablet PO (22:23)
[2018-06-02] MEDS: Carvedilol 25 MG Tablet PO (22:25)
[2018-06-02 22:30] LABS: Bedside Glucose 115 mg/dL (70-110)
--- NOTE | 2018-06-02 22:38 | NURSING ---
SPOKE TO ABDIAZIZ IN PHARMACY STATES OKAY TO BE ON NITRO PATCH AND IMDUR.
[2018-06-03] VITALS (14 sets, daily range): BP systolic 143–184; BP diastolic 68–102; PULSE 85–104; RESP 16–20; TEMP 36.6–36.9; O2SAT 94–97
[2018-06-03 00:20] LABS: Bedside Glucose 169 mg/dL (70-110)
[2018-06-03] MEDS: Nitroglycerin 0.2 MG Patch TRANSDERM. (04:38)
--- NOTE | 2018-06-03 04:48 | NURSING ---
PATIENT DRY HEAVING STATES GETS LIKE THIS AT HOME, DENIES ANY SOB, CHEST PAIN OR CHEST BURNING. AFTER A COUPLE OF MINUTES IT WENT AWAY. PATIENT STATES HE THINKS HE IS GETTING HIMSELF ALL WORKED UP.
[2018-06-03 05:06] LABS: International Normalized Ratio 1.3; Prothrombin Time (Protime)PT. 16.1 SECONDS (11.7-14.9)
[2018-06-03 05:07] LABS: Partial Thromboplast Time 48.8 Seconds (24.1-36.2)
[2018-06-03 05:25] LABS: Albumin, Serum 2.9 g/dL (3.2-5.0); BUN 54 mg/dL (7-18); BUN/Creat Ratio 16.4 RATIO (10-20); Calcium,Total 8.9 mg/dL (8.5-10.1); Chloride 111 mmol/L (98-107); EST Glomerular Filtration Rate 20 mL/min (>60); Est Glom Filt Rate - Afr Amer 24 mL/min (>60); Glucose 137 mg/dL (74-106); Phosphorus 3.7 mg/dL (2.5-4.9); Potassium 3.7 mmol/L (3.5-5.1); Sodium Level 142 mmol/L (136-145)
[2018-06-03 06:46] LABS: Bedside Glucose 125 mg/dL (70-110)
[2018-06-03] MEDS: HEPARIN/D5w 25,000 UNITS 25,000 UNITS/250 ML IV.SOLN. 11 UNITS IV (07:58)
[2018-06-03] MEDS: dilTIAZem CD 120 MG Capsule PO (08:02)
[2018-06-03] MEDS: Aspirin E.C. 81 MG Tablet PO (08:02)
[2018-06-03] MEDS: hydrALAZINE 50 MG Tablet PO ×2 (08:03→22:27)
[2018-06-03] MEDS: Carvedilol 25 MG Tablet PO ×2 (08:04→22:27)
[2018-06-03] MEDS: Isosorbide Mononitrate 30 MG Tablet PO (08:05)
[2018-06-03] MEDS: Pantoprazole Sodium 40 MG Tablet PO (08:09)
[2018-06-03] MEDS: Venlafaxine XR 75 MG Capsule 150 MG PO (08:09)
[2018-06-03] MEDS: Calcitriol 0.25 MCG Capsule PO (08:10)
[2018-06-03] MEDS: Clopidogrel Bisulfate 75 MG Tablet PO (08:10)
--- NOTE | 2018-06-03 08:24 | PN_ITS ---
Subjective: Chief complaint: Follow-up after admission for chest pain, probable non-ST elevation OK, elevated d-dimer and recent committee acquired pneumonia. Patient seen and examined. No acute events overnight. Today, denies any more chest pain. His breathing is getting better. He mentioned that he has been having this chest pain that goes to his back for many years and apparently, no one was able to figure out why he had this pain. His blood pressure is elevated, other vital signs are stable. - Physical Exam General: Alert, Oriented x3, Cooperative, No apparent distress HEENT: Atraumatic, PERRLA, EOMI, Normocephalic Oral: Moist Mucosa, No Gingival or Mucosal Lesions/ Ulcerations Neck: Supple, No JVD, Negative Carotid Bruits, Trachea Midline, Thyroid Normal Size and Texture Lungs: No wheeze, Diminished, Rales, Rhonchi, - - Decreased breath sounds more at the right base, scattered rhonchi. Cardiovascular: Normal S1, Normal S2, PMI Normal, Irregular Rate Abdomen: Bowel Sounds Present, Soft, Non Tender, Non-Distended, No Hepato- splenomegaly Extremities: No clubbing, No cyanosis, No edema Skin: No rashes, No breakdown Lymphatic: No Cervical, Supraclavicular, or Inguinal Adenopathy Neurological: Cranial nerves II-XII grossly intact, Neuro grossly intact Psych/Mental Status: Normal Affect, Appropriate, Alert and oriented to time, place, person, mood and affect Vital Signs Temp Pulse Resp BP Pulse Ox 97.8 F 104 H 16 184/100 H 96 06/03/18 07:57 06/03/18 08:03 06/03/18 07:57 06/03/18 08:03 06/03/18 07:57 Oxygen Delivery Method Room Air Weight: 158 lb 1 oz Body Mass Index (BMI) 24.0 Intake and Output for Last 24 Hours 06/01/18 06/02/18 06/03/18 23:59 23:59 23:59 Intake Total 200 / 200 400 / 400 Balance 200 / 200 400 / 400 Laboratory Tests Past 24 Hrs 06/02/18 06/02/18 06/02/18 12:40 12:40 12:40 WBC 6.9 RBC 3.58 L Hgb 10.7 L Hct 32.2 L MCV 89.9 MCH 29.9 MCHC 33.2 RDW 14.7 H RDW Differential 48.4 H Plt Count 212 MPV 10.1 Immature Gran % (Auto) 0.000 Neut % (Auto) 73.0 H Lymph % (Auto) 5.8 L [place] % (Auto) 9.7 Eos % (Auto) 10.3 H Baso % (Auto) 1.2 H Absolute Neuts (auto) 5.0 Absolute Lymphs (auto) 0.40 L Total Counted Not Reportable PT INR APTT D-Dimer Quant (PE/DVT) 0.88 H* Sodium 137 Potassium 3.7 Chloride 108 H Carbon Dioxide 21.0 Anion Gap 8 BUN 59 H Creatinine 3.46 H Estim Creat Clear Calc 18.12 Est GFR (MDRD) Af Amer 22 L Est GFR (MDRD) Non-Af 19 L BUN/Creatinine Ratio 17.1 Glucose 289 H Calcium 8.6 Phosphorus Troponin I 0.162 H Albumin 06/02/18 06/02/18 06/03/18 16:05 18:20 04:30 WBC RBC Hgb Hct MCV MCH MCHC RDW RDW Differential Plt Count MPV Immature Gran % (Auto) Neut % (Auto) Lymph % (Auto) [place] % (Auto) Eos % (Auto) Baso % (Auto) Absolute Neuts (auto) Absolute Lymphs (auto) Total Counted PT INR APTT D-Dimer Quant (PE/DVT) Sodium 142 Potassium 3.7 Chloride 111 H Carbon Dioxide 20.0 L Anion Gap BUN 54 H Creatinine 3.30 H Estim Creat Clear Calc 19.00 Est GFR (MDRD) Af Amer 24 L Est GFR (MDRD) Non-Af 20 L BUN/Creatinine Ratio 16.4 Glucose 137 H Calcium 8.9 Phosphorus 3.7 Troponin I 0.577 H 1.830 H* Albumin 2.9 L 06/03/18 04:30 WBC RBC Hgb Hct MCV MCH MCHC RDW RDW Differential Plt Count MPV Immature Gran % (Auto) Neut % (Auto) Lymph % (Auto) [place] % (Auto) Eos % (Auto) Baso % (Auto) Absolute Neuts (auto) Absolute Lymphs (auto) Total Counted PT 16.1 H INR 1.3 APTT 48.8 H D-Dimer Quant (PE/DVT) Sodium Potassium Chloride Carbon Dioxide Anion Gap BUN Creatinine Estim Creat Clear Calc Est GFR (MDRD) Af Amer Est GFR (MDRD) Non-Af BUN/Creatinine Ratio Glucose Calcium Phosphorus Troponin I Albumin POC Glucose 06/03/18 06/02/18 06/02/18 06:42 22:22 15:56 POC Glucose 125 H 115 H 169 H Medical Necessity - Tobacco Use Smoking Status: Former smoker Tobacco Use: Non-smoker Assessment/Plan All Active Problems (Last Reviewed 04/20/18 @ 11:02 by Bessy Lr) Chest pain (Acute) NSTEMI (non-ST elevated myocardial infarction) (Acute) This is a 73 years old male patient presented to the emergency room because of shortness of breath and chest pain, found to have acute non-ST elevation OK and also had recent history of community-acquired pneumonia and he was admitted for treatment and evaluation. #1 acute non-ST elevation OK: EKG reviewed, no acute ischemic changes. Troponin is elevated. Today, patient denied any more chest pain. He received 1 dose of therapeutic Lovenox yesterday and now, started on IV heparin drip. He is on aspirin, Plavix, Coreg, nitrates and hydralazine. This acute non-STEMI is likely due to demand ischemia in context of severe CAD with multiple interventions and stent placement. Cardiology consulted, patient was offered to go for invasive workup versus medical treatment and patient wants to think about it. He does have stage IV chronic kidney disease which makes medical treatment Appropriate. Plan to continue same treatment. #2 elevated d-dimer: D-dimer 0.88. Age adjusted d-dimer is 0.7. Patient is not hypoxic or tachycardic. At this time, PE is unlikely. #3 recent history of committee acquired pneumonia: Patient was on doxycycline for 8 days. Chest x-ray reviewed, revealed right lower lobe infiltrate. He is afebrile, no leukocytosis. Plan to switch doxycycline to Levaquin for 5 days, renally adjusted dose. #4 CAD status post CABG and stents: With history of extensive CAD and interventions. Plan as above, continue medical treatment, cardiology consulted, patient wants to think about need of cardiac catheterization at this time. #5 ischemic cardiomyopathy/status post ICD: Clinically stable, compensated, no CHF. Continue aspirin, Coreg, Plavix, hydralazine and nitrates. #6 stage IV chronic kidney disease: Baseline creatinine has been fluctuating anywhere between 2 up to 3.8 mg/dL. Today's creatinine is 3.30, stable at baseline. #7 hypertension: Blood sugar has been fluctuating significantly. Continue Coreg, Cardizem, hydralazine and nitrates, plan for close monitoring. #8 type 2 diabetes mellitus: Blood sugar controlled, continue Lantus insulin and sliding scale. #9 chronic anemia: Stable exam, no active bleeding, no indication for transfusion. #10 DVT prophylaxis: On IV heparin drip. This note was generated with [employer] dictation software. It may contain incorrect words, spelling, and punctuation that were not noted in checking the note before signing. Code Visit Inpatient E&M: 06878 Subs Hosp L2
--- NOTE | 2018-06-03 10:34 | PCM.CONS.C ---
Problem List (1) NSTEMI (non-ST elevated myocardial infarction) Status: Acute Reason for Consult Date of Consultation: 06/03/18 History of Present Illness: The patient is a 73 year old M with past medical history significant for coronary artery disease status post CABG, status post multiple percutaneous revascularizations, ischemic cardiomyopathy, hypertension and stage IV chronic kidney disease. He presented to the hospital with complaints of intermittent interscapular pain for the last couple of months. Does not relate this with activity. He does have chronic shortness of breath which worsens with exertion. Complains of some orthopnea. No ankle edema. As part of his workup, troponins were checked. These were noted to be elevated ruling him in for non-ST elevation myocardial infarction. Patient was recently diagnosed with pneumonia as outpatient and has been treated with antibiotics. [] Past Medical History Allergies/Adverse Reactions: Allergies atorvastatin calcium [From Lipitor] Allergy (Verified 06/02/18 12:01) Pain in joints verapamil [From Covera-HS] Allergy (Verified 06/02/18 12:01) passes out lisinopril Adverse Reaction (Verified 06/02/18 12:01) Other muscle pain Niacin Preparations Adverse Reaction (Verified 06/02/18 12:01) Pain in joints Cholesterol Meds Adverse Reaction (Uncoded 06/02/18 15:13) Pain in joints Home Medications: Ambulatory Orders Medication Instructions Recorded Insulin Glargine,Hum.rec.anlog 14 unit SQ BREAKFAST 08/20/15 [Lantus] Clopidogrel Bisulfate [Plavix] 75 mg PO DAILY #0 12/04/15 Carvedilol [Coreg (Beta Pedro)] 25 mg PO BID #90 tab 09/08/17 Aspirin E.C. [Ecotrin] 81 mg PO DAILY 11/07/17 Slow Release Iron 45 mg PO DAILY 11/07/17 Venlafaxine HCl [Venlafaxine HCl 150 mg PO DAILY 11/07/17 ER] hydrALAZINE [Apresoline] 50 mg PO BID 11/07/17 allopurinol 100 mg tablet 100 mg PO DAILY tab 11/21/17 diltiazem CD 120 mg 120 mg PO DAILY 11/21/17 capsule,extended release 24 hr pantoprazole 40 mg tablet,delayed 40 mg PO BIDAC 11/21/17 release isosorbide mononitrate ER 30 mg 30 mg PO DAILY 11/27/17 tablet,extended release 24 hr calcitriol 0.25 mcg capsule 0.25 mcg PO DAILY cap 04/20/18 trazodone 50 mg tablet 50 mg PO QHS 04/20/18 Doxycycline [Vibramycin] 100 mg PO BID 06/02/18 Sucralfate [Carafate] 1 gm PO BIDCM 06/02/18 Past Medical History (Chronic Problems): Chronic Problems (Last Reviewed 04/20/18 @ 11:02 by Bessy Lr) Stented coronary artery (Chronic 11/08/17) Mildly elevated troponin: cutting balloon angioplasty ([place] Cutting Balloon 3.0 X 10 mm) and ALBERTO (Synergy 4.0 X 8 mm) placed from proximal to mid left main per Dr. Bustos, [facility] History of right and left heart catheterization (Chronic 11/08/17) Per Dr. Bustos, [facility]>followed by cutting ballon angioplasty and ALBERTO to left main CAD (coronary artery disease) (Chronic) S/P PTCA (percutaneous transluminal coronary angioplasty) (Chronic) Implantable cardioverter-defibrillator (ICD) in situ (Chronic) Ischemic cardiomyopathy (Chronic) 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 Buitrago @ [facility] History of left heart catheterization (Chronic 09/06/17) Atherosclerotic heart disease of [place] coronary artery with other forms of angina pectoris (Chronic) CHARLES to LAD, SVG to RCA and SVG to CX per Dr. Buitrago @ [facility] 09/27/06. Mildly elevated troponin: cutting balloon angioplasty ([place] Cutting Balloon 3.0 X 10 mm) and ALBERTO (Synergy 4.0 X 8 mm) placed from proximal to mid left main per Dr. Bustos, [facility] 11/08/17 DM2 (diabetes mellitus, type 2) (Chronic) CKD (chronic kidney disease), stage IV (Chronic) History of pulmonary embolism (Chronic) Provoked History of hypertension (Chronic) History of hyperlipidemia (Chronic) History of gout (Chronic) 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) Surgical History: - - History of ruptured bowel status post colostomy, PCI, CABG, appendectomy, hernia repair. Psychiatric History: Anxiety, Depression - *Family History Sibling Family History: Family History (Last Reviewed 04/20/18 @ 11:02 by Bessy Lr) Unknown No problems noted. History Items: Diabetes, Heart Disease Maternal Family History: Family History (Last Reviewed 04/20/18 @ 11:02 by Bessy Lr) Unknown No problems noted. History Items: Heart Disease Paternal Family History: Family History (Last Reviewed 04/20/18 @ 11:02 by Bessy Lr) Unknown No problems noted. History Items: Heart Disease Smoking Status: Former smoker Tobacco Use: Non-smoker Alcohol: None Drugs: None Review of Systems - Review of Systems General: Denies: Fever, Chills Cardiovascular: Reports: Shortness of Breath at Rest, Shortness of Breath with Exertion, Orthopnea. Denies: PND, Peripheral Edema, Syncope Respiratory: Reports: Non Productive Cough Gastrointestinal: Denies: Abdominal Discomfort, Jaundice, Nausea, Emesis, Hematemesis Neurological: Denies: History of TIA, History of CVA Hematologic/ Lymphatic: Denies: Easy Brusing, Easy Bleeding Subjectve: Appears mildly short of breath. Objective: Vital Signs Temp Pulse Resp BP Pulse Ox 97.8 F 104 H 16 143/72 H 96 06/03/18 07:57 06/03/18 08:03 06/03/18 07:57 06/03/18 09:19 06/03/18 07:57 Oxygen Delivery Method Room Air Weight: 71.696 kg Body Mass Index (BMI) 24.0 Intake and Output for Last 24 Hours 06/01/18 06/02/18 06/03/18 23:59 23:59 23:59 Intake Total 200 / 200 400 / 400 Balance 200 / 200 400 / 400 General: Awake, Alert, Oriented x 3 HEENT: Atraumatic, Normocephalic Neck: Supple Lungs: Clear to auscultation Cardiovascular: Regular Rhythm, Premature Ectopic Beats, Normal S1, Normal S2 Abdomen: Bowel Sounds Present, Soft, - - Colostomy bag in place Extremities: No edema Neurological: No Focal Motor or Sensory Deficit Psych/Mental Status: Appropriate 06/02/18 12:40: WBC 6.9, RBC 3.58 L, Hgb 10.7 L, Hct 32.2 L, MCV 89.9, MCH 29.9, MCHC 33.2, RDW 14.7 H, RDW Differential 48.4 H, Plt Count 212, MPV 10.1, Immature Gran % (Auto) 0.000, Neut % (Auto) 73.0 H, Lymph % (Auto) 5.8 L, [place] % (Auto) 9.7, Eos % (Auto) 10.3 H, Baso % (Auto) 1.2 H, Absolute Neuts (auto) 5.0, Total Counted Not Reportable 06/02/18 12:40: D-Dimer Quant (PE/DVT) 0.88 H* 06/02/18 12:40: Sodium 137, Potassium 3.7, Chloride 108 H, Carbon Dioxide 21.0, Anion Gap 8, BUN 59 H, Creatinine 3.46 H, Est GFR (MDRD) Af Amer 22 L, Est GFR (MDRD) Non-Af 19 L, BUN/Creatinine Ratio 17.1, Glucose 289 H, Calcium 8.6, Troponin I 0.162 H 06/02/18 16:05: Troponin I 0.577 H 06/02/18 18:20: Troponin I 1.830 H* 06/03/18 04:30: Sodium 142, Potassium 3.7, Chloride 111 H, Carbon Dioxide 20.0 L, BUN 54 H, Creatinine 3.30 H, Est GFR (MDRD) Af Amer 24 L, Est GFR (MDRD) Non-Af 20 L, BUN/Creatinine Ratio 16.4, Glucose 137 H, Calcium 8.9, Phosphorus 3.7 06/03/18 04:30: PT 16.1 H, INR 1.3, APTT 48.8 H Rhythm: Sinus rhythm with frequent PACs EKG: Sinus rhythm. Incomplete left bundle branch block pattern. ST changes likely secondary to strain pattern, old, no new change ECHO: Stress Test: Cardiac Cath: PCI: CT Surgery: Holter monitor: EPS: PPM: CXR: Chest CT Scan: Assessment/Plan 1. Non-ST elevation myocardial infarction. Last percutaneous intervention in October of last year according to the patient. He apparently had a drug-eluting stent placement to his left main coronary artery. Continue aspirin, Plavix, beta-blockers and nitrates. His non-ST elevation [place] could be a result of demand phenomenon with his pneumonia on top of his underlying severe coronary artery disease. I discussed options with the patient including continuing medical management versus invasive workup with coronary angiography and possible revascularization. Risks benefits explained. It was particularly noted that the patient has stage IV chronic kidney disease and even minimum contrast may tell him towards renal shutdown and resultant need for dialysis. He understands these and wishes to think about it. 2. Noted elevated d-dimer. Workup for ruling out PE as per internal medicine. Patient presently on heparin for #1 above. 3. History of coronary artery disease status post CABG, status post percutaneous revascularization. See #1 above. 4. History of ischemic cardiomyopathy. Ejection fraction 25% noted last year. Status post ICD placement. 5. Pneumonia. On antibiotics. 6. Hypertension. 7. Dyslipidemia. Manage as per internal medicine 8. Diabetes mellitus. 9. Stage IV chronic kidney disease. Consult nephrology.
--- NOTE | 2018-06-03 10:38 | CON.PCM_ITS ---
Problem List (1) NSTEMI (non-ST elevated myocardial infarction) Status: Acute Reason for Consult Date of Consultation: 06/03/18 History of Present Illness: The patient is a 73 year old M with past medical history significant for coronary artery disease status post CABG, status post multiple percutaneous revascularizations, ischemic cardiomyopathy, hypertension and stage IV chronic kidney disease. He presented to the hospital with complaints of intermittent interscapular pain for the last couple of months. Does not relate this with activity. He does have chronic shortness of breath which worsens with exertion. Complains of some orthopnea. No ankle edema. As part of his workup, troponins were checked. These were noted to be elevated ruling him in for non-ST elevation myocardial infarction. Patient was recently diagnosed with pneumonia as outpatient and has been treated with antibiotics. [] Past Medical History Allergies/Adverse Reactions: Allergies atorvastatin calcium [From Lipitor] Allergy (Verified 06/02/18 12:01) Pain in joints verapamil [From Covera-HS] Allergy (Verified 06/02/18 12:01) passes out lisinopril Adverse Reaction (Verified 06/02/18 12:01) Other muscle pain Niacin Preparations Adverse Reaction (Verified 06/02/18 12:01) Pain in joints Cholesterol Meds Adverse Reaction (Uncoded 06/02/18 15:13) Pain in joints Home Medications: Ambulatory Orders Medication Instructions Recorded Insulin Glargine,Hum.rec.anlog 14 unit SQ BREAKFAST 08/20/15 [Lantus] Clopidogrel Bisulfate [Plavix] 75 mg PO DAILY #0 12/04/15 Carvedilol [Coreg (Beta Pedro)] 25 mg PO BID #90 tab 09/08/17 Aspirin E.C. [Ecotrin] 81 mg PO DAILY 11/07/17 Slow Release Iron 45 mg PO DAILY 11/07/17 Venlafaxine HCl [Venlafaxine HCl 150 mg PO DAILY 11/07/17 ER] hydrALAZINE [Apresoline] 50 mg PO BID 11/07/17 allopurinol 100 mg tablet 100 mg PO DAILY tab 11/21/17 diltiazem CD 120 mg 120 mg PO DAILY 11/21/17 capsule,extended release 24 hr pantoprazole 40 mg tablet,delayed 40 mg PO BIDAC 11/21/17 release isosorbide mononitrate ER 30 mg 30 mg PO DAILY 11/27/17 tablet,extended release 24 hr calcitriol 0.25 mcg capsule 0.25 mcg PO DAILY cap 04/20/18 trazodone 50 mg tablet 50 mg PO QHS 04/20/18 Doxycycline [Vibramycin] 100 mg PO BID 06/02/18 Sucralfate [Carafate] 1 gm PO BIDCM 06/02/18 Past Medical History (Chronic Problems): Chronic Problems (Last Reviewed 04/20/18 @ 11:02 by Bessy Lr) Stented coronary artery (Chronic 11/08/17) Mildly elevated troponin: cutting balloon angioplasty ([place] Cutting Balloon 3.0 X 10 mm) and ALBERTO (Synergy 4.0 X 8 mm) placed from proximal to mid left main per Dr. Bustos, [facility] History of right and left heart catheterization (Chronic 11/08/17) Per Dr. Bustos, [facility]>followed by cutting ballon angioplasty and ALBERTO to left main CAD (coronary artery disease) (Chronic) S/P PTCA (percutaneous transluminal coronary angioplasty) (Chronic) Implantable cardioverter-defibrillator (ICD) in situ (Chronic) Ischemic cardiomyopathy (Chronic) 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 Buitrago @ [facility] History of left heart catheterization (Chronic 09/06/17) Atherosclerotic heart disease of [place] coronary artery with other forms of angina pectoris (Chronic) CHARLES to LAD, SVG to RCA and SVG to CX per Dr. Buitrago @ [facility] 09/27/06. Mildly elevated troponin: cutting balloon angioplasty ([place] Cutting Balloon 3.0 X 10 mm) and ALBERTO (Synergy 4.0 X 8 mm) placed from proximal to mid left main per Dr. Bustos, [facility] 11/08/17 DM2 (diabetes mellitus, type 2) (Chronic) CKD (chronic kidney disease), stage IV (Chronic) History of pulmonary embolism (Chronic) Provoked History of hypertension (Chronic) History of hyperlipidemia (Chronic) History of gout (Chronic) 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) Surgical History: - - History of ruptured bowel status post colostomy, PCI, CABG, appendectomy, hernia repair. Psychiatric History: Anxiety, Depression - *Family History Sibling Family History: Family History (Last Reviewed 04/20/18 @ 11:02 by Bessy Lr) Unknown No problems noted. History Items: Diabetes, Heart Disease Maternal Family History: Family History (Last Reviewed 04/20/18 @ 11:02 by Bessy Lr) Unknown No problems noted. History Items: Heart Disease Paternal Family History: Family History (Last Reviewed 04/20/18 @ 11:02 by Bessy Lr) Unknown No problems noted. History Items: Heart Disease Smoking Status: Former smoker Tobacco Use: Non-smoker Alcohol: None Drugs: None Review of Systems - Review of Systems General: Denies: Fever, Chills Cardiovascular: Reports: Shortness of Breath at Rest, Shortness of Breath with Exertion, Orthopnea. Denies: PND, Peripheral Edema, Syncope Respiratory: Reports: Non Productive Cough Gastrointestinal: Denies: Abdominal Discomfort, Jaundice, Nausea, Emesis, Hematemesis Neurological: Denies: History of TIA, History of CVA Hematologic/ Lymphatic: Denies: Easy Brusing, Easy Bleeding Subjectve: Appears mildly short of breath. Objective: Vital Signs Temp Pulse Resp BP Pulse Ox 97.8 F 104 H 16 143/72 H 96 06/03/18 07:57 06/03/18 08:03 06/03/18 07:57 06/03/18 09:19 06/03/18 07:57 Oxygen Delivery Method Room Air Weight: 71.696 kg Body Mass Index (BMI) 24.0 Intake and Output for Last 24 Hours 06/01/18 06/02/18 06/03/18 23:59 23:59 23:59 Intake Total 200 / 200 400 / 400 Balance 200 / 200 400 / 400 General: Awake, Alert, Oriented x 3 HEENT: Atraumatic, Normocephalic Neck: Supple Lungs: Clear to auscultation Cardiovascular: Regular Rhythm, Premature Ectopic Beats, Normal S1, Normal S2 Abdomen: Bowel Sounds Present, Soft, - - Colostomy bag in place Extremities: No edema Neurological: No Focal Motor or Sensory Deficit Psych/Mental Status: Appropriate 06/02/18 12:40: WBC 6.9, RBC 3.58 L, Hgb 10.7 L, Hct 32.2 L, MCV 89.9, MCH 29.9, MCHC 33.2, RDW 14.7 H, RDW Differential 48.4 H, Plt Count 212, MPV 10.1, Immature Gran % (Auto) 0.000, Neut % (Auto) 73.0 H, Lymph % (Auto) 5.8 L, [place] % (Auto) 9.7, Eos % (Auto) 10.3 H, Baso % (Auto) 1.2 H, Absolute Neuts (auto) 5. 0, Total Counted Not Reportable 06/02/18 12:40: D-Dimer Quant (PE/DVT) 0.88 H* 06/02/18 12:40: Sodium 137, Potassium 3.7, Chloride 108 H, Carbon Dioxide 21.0, Anion Gap 8, BUN 59 H, Creatinine 3.46 H, Est GFR (MDRD) Af Amer 22 L, Est GFR (MDRD) Non-Af 19 L, BUN/Creatinine Ratio 17.1, Glucose 289 H, Calcium 8.6, Troponin I 0.162 H 06/02/18 16:05: Troponin I 0.577 H 06/02/18 18:20: Troponin I 1.830 H* 06/03/18 04:30: Sodium 142, Potassium 3.7, Chloride 111 H, Carbon Dioxide 20.0 L , BUN 54 H, Creatinine 3.30 H, Est GFR (MDRD) Af Amer 24 L, Est GFR (MDRD) Non- Af 20 L, BUN/Creatinine Ratio 16.4, Glucose 137 H, Calcium 8.9, Phosphorus 3.7 06/03/18 04:30: PT 16.1 H, INR 1.3, APTT 48.8 H Rhythm: Sinus rhythm with frequent PACs EKG: Sinus rhythm. Incomplete left bundle branch block pattern. ST changes likely secondary to strain pattern, old, no new change ECHO: Stress Test: Cardiac Cath: PCI: CT Surgery: Holter monitor: EPS: PPM: CXR: Chest CT Scan: Assessment/Plan 1. Non-ST elevation myocardial infarction. Last percutaneous intervention in October of last year according to the patient. He apparently had a drug- eluting stent placement to his left main coronary artery. Continue aspirin, Plavix, beta-blockers and nitrates. His non-ST elevation [place] could be a result of demand phenomenon with his pneumonia on top of his underlying severe coronary artery disease. I discussed options with the patient including continuing medical management versus invasive workup with coronary angiography and possible revascularization. Risks benefits explained. It was particularly noted that the patient has stage IV chronic kidney disease and even minimum contrast may tell him towards renal shutdown and resultant need for dialysis. He understands these and wishes to think about it. 2. Noted elevated d-dimer. Workup for ruling out PE as per internal medicine. Patient presently on heparin for #1 above. 3. History of coronary artery disease status post CABG, status post percutaneous revascularization. See #1 above. 4. History of ischemic cardiomyopathy. Ejection fraction 25% noted last year. Status post ICD placement. 5. Pneumonia. On antibiotics. 6. Hypertension. 7. Dyslipidemia. Manage as per internal medicine 8. Diabetes mellitus. 9. Stage IV chronic kidney disease. Consult nephrology.
[2018-06-03] MEDS: Insulin Lispro 100 UNIT/ML INSULN.PEN SQ (11:09)
[2018-06-03 11:16] LABS: Bedside Glucose 192 mg/dL (70-110)
[2018-06-03 14:05] LABS: Partial Thromboplast Time 116.5 Seconds (24.1-36.2)
[2018-06-03 16:11] LABS: Bedside Glucose 122 mg/dL (70-110)
[2018-06-03] MEDS: levoFLOXacin 500 MG Tablet PO (18:58)
[2018-06-03 21:47] LABS: Partial Thromboplast Time 84.5 Seconds (24.1-36.2)
[2018-06-03] MEDS: traZODone 50 MG Tablet PO (22:27)
[2018-06-03] MEDS: ALPRAZolam 0.5 MG Tablet PO (22:27)
[2018-06-03] MEDS: 0.9% NaCl Peripheral Flush Adult/Peds IV (22:31)
[2018-06-03 22:50] LABS: Bedside Glucose 97 mg/dL (70-110)
[2018-06-04] VITALS (14 sets, daily range): BP systolic 114–155; BP diastolic 70–93; PULSE 71–85; RESP 16–18; TEMP 36.6–36.9; O2SAT 94–98
[2018-06-04 04:55] LABS: Partial Thromboplast Time 53.5 Seconds (24.1-36.2)
[2018-06-04] MEDS: levoFLOXacin 500 MG Tablet PO (05:57)
[2018-06-04] MEDS: Nitroglycerin 0.2 MG Patch TRANSDERM. (06:07)
[2018-06-04] MEDS: Heparin Injection (Vial) 5,000 UNIT/ML VIAL IV (06:19)
[2018-06-04 06:22] LABS: Absolute Lymphocyte Count 0.71 X10^3/ul (0.83-4.51); Absolute Neutrophil Count 4.6 X10^3/uL (2.0-7.7); Basophil% 1.5 % (0-1); Eosinophil# 0.66 X10^3/uL; Eosinophils% 9.7 % (0-5); Hematocrit 32.2 % (40-54); Hemoglobin 10.6 g/dl (13.0-16.5); Lymphocyte # 0.71 X10^3/ul (4.0); Lymphocyte % 10.4 % (19-41); Mean Corp Hgb Conc 32.9 g/gl (32-36); Mean Corpuscular Hgb 29.5 pg (27.0-32.0); Mean Corpuscular Volume 89.7 fL (80-94); Mean Platelet Vol. 10.7 fl (6.2-12.0); Monocyte# 0.79 X10^3/uL; Monocyte% 11.6 % (0-10); Neutrophil # 4.55 X10^3/uL (2.7-7.7); Neutrophil % 66.7 % (47-70); Platelet Count 198 K/mm3 (150-450); RBC Distribution Width CV 14.9 % (11.6-14.6); RBC Distribution Width SD 48.3 fl (35.1-43.9); Red Blood Count 3.59 M/mm3 (4.6-6.2); White Blood Count 6.8 K/mm3 (4.4-11.0)
[2018-06-04 06:30] LABS: POSITIVE COUNT NO; POSITIVE DIFFERENTIAL NO; POSITIVE MORPHOLOGY NO
[2018-06-04 06:40] LABS: Bedside Glucose 110 mg/dL (70-110)
[2018-06-04 06:42] LABS: Anion Gap 9 (5-15); BUN 55 mg/dL (7-18); BUN/Creat Ratio 16.5 RATIO (10-20); Calcium,Total 9.3 mg/dL (8.5-10.1); Chloride 111 mmol/L (98-107); Creatinine, Serum 3.34 mg/dL (0.70-1.30); EST Glomerular Filtration Rate 19 mL/min (>60); Est Glom Filt Rate - Afr Amer 23 mL/min (>60); Estimated Creatinine Clearance 18.77 ml/min; Glucose 122 mg/dL (74-106); Potassium 4.2 mmol/L (3.5-5.1); Sodium Level 141 mmol/L (136-145)
--- NOTE | 2018-06-04 08:52 | PCM.PN.CARD ---
Subjectve: Feels better. Reports shortness of breath much better. Feels like his appetite has come back as well. Objective: Vital Signs Temp Pulse Resp BP Pulse Ox 97.9 F 82 18 155/76 H 94 06/04/18 06:28 06/04/18 06:28 06/04/18 06:28 06/04/18 06:28 06/04/18 06:28 Oxygen Delivery Method Room Air Weight: 71.7 kg Body Mass Index (BMI) 24.0 Intake and Output for Last 24 Hours 06/02/18 06/03/18 06/04/18 23:59 23:59 23:59 Intake Total 200 / 200 1042.3 / 1042.3 110 / 110 Balance 200 / 200 1042.3 / 1042.3 110 / 110 General: Awake, Alert, Oriented x 3, No Acute Distress HEENT: Atraumatic, Normocephalic Oral: Moist Mucosa Lungs: Clear to auscultation Cardiovascular: Regular Rhythm, Normal S1, Normal S2 Extremities: No edema 06/03/18 13:44: APTT 116.5 H* 06/03/18 21:35: APTT 84.5 H 06/04/18 04:28: APTT 53.5 H 06/04/18 05:50: WBC 6.8, RBC 3.59 L, Hgb 10.6 L, Hct 32.2 L, MCV 89.7, MCH 29.5, MCHC 32.9, RDW 14.9 H, RDW Differential 48.3 H, Plt Count 198, MPV 10.7, Immature Gran % (Auto) 0.100, Neut % (Auto) 66.7, Lymph % (Auto) 10.4 L, [place] % (Auto) 11.6 H, Eos % (Auto) 9.7 H, Baso % (Auto) 1.5 H, Absolute Neuts (auto) 4.6, Total Counted Not Reportable 06/04/18 05:50: Sodium 141, Potassium 4.2, Chloride 111 H, Carbon Dioxide 21.0, Anion Gap 9, BUN 55 H, Creatinine 3.34 H, Est GFR (MDRD) Af Amer 23 L, Est GFR (MDRD) Non-Af 19 L, BUN/Creatinine Ratio 16.5, Glucose 122 H, Calcium 9.3 Rhythm: EKG: ECHO: Stress Test: Cardiac Cath: PCI: CT Surgery: Holter monitor: EPS: PPM: CXR: Chest CT Scan: Medical Necessity - Tobacco Use Smoking Status: Former smoker Tobacco Use: Non-smoker Assessment/Plan 1. Non-ST elevation myocardial infarction. Likely secondary to demand phenomenon with pneumonia on underlying severe coronary artery disease. Continue medical management. Recommend Lexiscan stress Cardiolite prior to discharge to evaluate for ischemic burden. May discontinue heparin from cardiology standpoint. 2. Noted elevated d-dimer. Workup for ruling out PE as per internal medicine. 3. History of coronary artery disease status post CABG, status post percutaneous revascularization. See #1 above. 4. History of ischemic cardiomyopathy. Ejection fraction 25% noted last year. Status post ICD placement. 5. Pneumonia. On antibiotics. 6. Hypertension. 7. Dyslipidemia. Manage as per internal medicine 8. Diabetes mellitus. 9. Stage IV chronic kidney disease. Consult nephrology.
[2018-06-04] MEDS: hydrALAZINE 50 MG Tablet PO ×2 (10:00→21:09)
[2018-06-04] MEDS: Calcitriol 0.25 MCG Capsule PO (10:00)
[2018-06-04] MEDS: Isosorbide Mononitrate 30 MG Tablet PO (10:00)
[2018-06-04] MEDS: Clopidogrel Bisulfate 75 MG Tablet PO (10:00)
[2018-06-04] MEDS: Pantoprazole Sodium 40 MG Tablet PO (10:00)
[2018-06-04] MEDS: Carvedilol 25 MG Tablet PO ×2 (10:01→21:09)
[2018-06-04] MEDS: Venlafaxine XR 75 MG Capsule 150 MG PO (10:01)
[2018-06-04] MEDS: dilTIAZem CD 120 MG Capsule PO (10:01)
[2018-06-04] MEDS: Aspirin E.C. 81 MG Tablet PO (10:01)
--- NOTE | 2018-06-04 11:10 | PCM.CONS.R ---
Consultation - Renal 06/04/18 PCP/ Referring MD: Requesting physician: [] Primary care physician: Prasad Concepcion III, MD - History of Present Illness History of Present Illness: The patient is a 73 year old M past medical history significant for coronary artery disease status post CABG, s/p multiple percutaneous revascularizations, ischemic cardiomyopathy, hypertension and stage IV chronic kidney disease due to diabetes presented to the hospital on 06/03 with complaints of intermittent interscapular pain for the last couple of months. Does not relate this with activity. He does have chronic shortness of breath worse with exertion. Complains of some orthopnea. No ankle edema. Complains of productive cough. Denied fever or chills. Troponins positive with cardiology consult. SOB improving. Nausea, vomiting improved. Patient was recently diagnosed with pneumonia as outpatient and has been treated with antibiotics. He refused dialysis access placement but agrees now to f/u with Dr. Concepcion.We had multiple discussions about dialysis in the past. Creatinine is at baseline in the 3 range. He has proteinuria but intolerant to ACEI or ARB. - Allergies Allergies: Allergies atorvastatin calcium [From Lipitor] Allergy (Verified 06/02/18 12:01) Pain in joints verapamil [From Covera-HS] Allergy (Verified 06/02/18 12:01) passes out lisinopril Adverse Reaction (Verified 06/02/18 12:01) Other muscle pain Niacin Preparations Adverse Reaction (Verified 06/02/18 12:01) Pain in joints Cholesterol Meds Adverse Reaction (Uncoded 06/02/18 15:13) Pain in joints - Current Medications Current Medications: Current Medications Acetaminophen (Tylenol) 650 mg PO Q6H PRN PRN PRN Reason: Mild Pain (1-3)/Temp > 100.7 F Alprazolam (Xanax) 0.5 mg PO QHS PRN PRN PRN Reason: ANXIETY/INSOMNIA Last Admin: 06/03/18 22:27 Dose: 0.5 mg [facility]) [facility] Last Admin: 06/04/18 10:01 Dose: 81 mg Calcitriol (Rocaltrol) 0.25 mcg PO DAILY [facility] Last Admin: 06/04/18 10:00 Dose: 0.25 mcg Carvedilol (Coreg) 25 mg PO BID [facility] Last Admin: 04/22/19 10:01 Dose: 25 mg Clopidogrel Bisulfate (Plavix) 75 mg PO DAILY [facility] Last Admin: 06/04/18 10:00 Dose: 75 mg Dextrose (D50w Syringe) 0 gm IV X1 PRN; Protocol PRN Reason: Hypoglycemia Diltiazem HCl (Cardizem Cd) 120 mg PO DAILY [facility] Last Admin: 06/04/18 10:01 Dose: 120 mg Glucagon () 1 mg IM .X1 PRN PRN Reason: Hypoglycemia Heparin Sodium (Porcine) (Heparin Na) 0 unit IV UD PRN; Protocol Last Admin: 06/04/18 06:19 Dose: 1,000 unit Hydralazine HCl (Apresoline) 50 mg PO BID [facility] Last Admin: 06/04/18 10:00 Dose: 50 mg Heparin Sodium/Dextrose () 25,000 units in 250 mls @ 11 mls/hr IV .[id number] [facility]; Protocol Last Admin: 06/04/18 09:55 Dose: Not Given Insulin Glargine (Lantus (Bk)) 14 units SC BREAKFAST [facility] Last Admin: 06/04/18 10:01 Dose: 14 u Insulin Human Lispro (Humalog Kwikpen (Bk)) 0 unit SQ ACHS [facility]; Protocol Last Admin: 06/04/18 06:27 Dose: Not Given Isosorbide Mononitrate (Imdur) 30 mg PO DAILY [facility] Last Admin: 06/04/18 10:00 Dose: 30 mg Levofloxacin (Levaquin Tablet) 500 mg PO Q48@0600 [facility] Stop: 06/08/18 06:01 Last Admin: 06/04/18 05:57 Dose: 500 mg Nitroglycerin (Nitro-Dur) 0.2 mg TRANSDERM. DAILY@0700 [facility] Last Admin: 06/04/18 06:07 Dose: 0.2 mg Pantoprazole Sodium (Protonix) 40 mg PO DAILY [facility] Last Admin: 06/04/18 10:00 Dose: 40 mg Sodium Chloride () 5 - 15 ml IV UD PRN PRN Reason: SALINE FLUSH Last Admin: 06/03/18 22:31 Dose: 10 ml Trazodone HCl (Desyrel) 50 mg PO QHS [facility] Last Admin: 06/03/18 22:27 Dose: 50 mg Venlafaxine HCl (Effexor Xr) 150 mg PO DAILY [facility] Last Admin: 06/04/18 10:01 Dose: 150 mg - Past Medical History Past Medical History (Chronic Problems): Chronic Problems (Last Reviewed 04/20/18 @ 11:02 by Bessy Lr) Stented coronary artery (Chronic 11/08/17) Mildly elevated troponin: cutting balloon angioplasty ([place] Cutting Balloon 3.0 X 10 mm) and ALBERTO (Synergy 4.0 X 8 mm) placed from proximal to mid left main per Dr. Bustos, [facility] History of right and left heart catheterization (Chronic 11/08/17) Per Dr. Bustos, [facility]>followed by cutting ballon angioplasty and ALBERTO to left main CAD (coronary artery disease) (Chronic) S/P PTCA (percutaneous transluminal coronary angioplasty) (Chronic) Implantable cardioverter-defibrillator (ICD) in situ (Chronic) Ischemic cardiomyopathy (Chronic) 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 Buitrago @ [facility] History of left heart catheterization (Chronic 09/06/17) Atherosclerotic heart disease of [place] coronary artery with other forms of angina pectoris (Chronic) CHARLES to LAD, SVG to RCA and SVG to CX per Dr. Buitrago @ [facility] 09/27/06. Mildly elevated troponin: cutting balloon angioplasty ([place] Cutting Balloon 3.0 X 10 mm) and ALBERTO (Synergy 4.0 X 8 mm) placed from proximal to mid left main per Dr. 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 - Social History Smoking Status: Former smoker Alcohol: None Drugs: None - Family History Sibling Family History: Family History (Last Reviewed 04/20/18 @ 11:02 by Bessy Lr) Unknown No problems noted. History Items: Diabetes, Heart Disease, Renal Disease Maternal Family History: Family History (Last Reviewed 04/20/18 @ 11:02 by Bessy Lr) Unknown No problems noted. History Items: Heart Disease Paternal Family History: Family History (Last Reviewed 04/20/18 @ 11:02 by Bessy Lr) Unknown No problems noted. History Items: Heart Disease Review of Systems Constitutional: Reports: Anorexia, Weakness, Fatigue. Denies: Chills, Fever HEENT: Denies: Head Aches, Visual Changes Cardiovascular: Reports: Chest Pain - subscapular pain resoved. Denies: Edema, Orthopnea Respiratory: Reports: Cough, Shortness of Breath, Sputum production Gastrointestinal: Reports: Nausea - resolved. Denies: Abdominal Pain, Diarrhea, Vomiting Genitourinary: Denies: Dysuria Musculoskeletal: Denies: Arm Pain Skin: Denies: Rash Neurological: Denies: Balance problems Psychiatric: Denies: Anxiety, Depression - Physical Exam General: Alert, Oriented x3, Cooperative, No apparent distress HEENT: PERRLA, EOMI Lungs: Rales - left base resolved with deep inspiration Cardiovascular: Regular rate Abdomen: Bowel Sounds Present, Soft, Non Tender, - - colostomy Extremities: No edema Musculoskeletal: No Muscle Wasting Neurological: Cranial nerves II-XII grossly intact Psych/Mental Status: Normal Affect, Appropriate, Alert and oriented to time, place, person, mood and affect Vital Signs Temp Pulse Resp BP Pulse Ox 98.4 F 82 16 135/93 H 96 06/04/18 09:54 06/04/18 10:00 06/04/18 09:54 06/04/18 09:54 06/04/18 09:54 Oxygen Delivery Method Room Air Weight: 71.7 kg Body Mass Index (BMI) 24.0 Intake and Output for Last 24 Hours 06/02/18 06/03/18 06/04/18 23:59 23:59 23:59 Intake Total 200 / 200 1042.3 / 1042.3 110 / 110 Balance 200 / 200 1042.3 / 1042.3 110 / 110 Laboratory Tests Past 24 Hrs 06/03/18 06/03/18 06/04/18 13:44 21:35 04:28 WBC RBC Hgb Hct MCV MCH MCHC RDW RDW Differential Plt Count MPV Immature Gran % (Auto) Neut % (Auto) Lymph % (Auto) [place] % (Auto) Eos % (Auto) Baso % (Auto) Absolute Neuts (auto) Absolute Lymphs (auto) Total Counted APTT 116.5 H* 84.5 H 53.5 H Sodium Potassium Chloride Carbon Dioxide Anion Gap BUN Creatinine Estim Creat Clear Calc Est GFR (MDRD) Af Amer Est GFR (MDRD) Non-Af BUN/Creatinine Ratio Glucose Calcium 06/04/18 06/04/18 05:50 05:50 WBC 6.8 RBC 3.59 L Hgb 10.6 L Hct 32.2 L MCV 89.7 MCH 29.5 MCHC 32.9 RDW 14.9 H RDW Differential 48.3 H Plt Count 198 MPV 10.7 Immature Gran % (Auto) 0.100 Neut % (Auto) 66.7 Lymph % (Auto) 10.4 L [place] % (Auto) 11.6 H Eos % (Auto) 9.7 H Baso % (Auto) 1.5 H Absolute Neuts (auto) 4.6 Absolute Lymphs (auto) 0.71 L Total Counted Not Reportable APTT Sodium 141 Potassium 4.2 Chloride 111 H Carbon Dioxide 21.0 Anion Gap 9 BUN 55 H Creatinine 3.34 H Estim Creat Clear Calc 18.77 Est GFR (MDRD) Af Amer 23 L Est GFR (MDRD) Non-Af 19 L BUN/Creatinine Ratio 16.5 Glucose 122 H Calcium 9.3 POC Glucose 06/04/18 06/03/18 06/03/18 06:27 22:22 16:04 POC Glucose 110 97 122 H 06/03/18 11:08 POC Glucose 192 H Clinical Impression(s) from Imaging Studies Chest X-Ray 06/02/18 12:30 IMPRESSION: Right lower lobe airspace disease could represent infection Electronically Signed: Saud Juarez DO at 13:26 EDT Tel , Service support , Assessment/Plan All Active Problems (Last Reviewed 04/20/18 @ 11:02 by Bessy Lr) Chest pain (Acute) NSTEMI (non-ST elevated myocardial infarction) (Acute) 1 CKD Stage 4 due to diabetes, renal fxn at baseline. No urgency for dialysis. Pt finally agreed to access placement that can be done as an outpt. OK to dc home from renal standpoint. 2. Acute chest pain, +troponins. Cardiology following 3. Anemia hgb stable 10.6g 4. pneumonia treated as outpt 2 wks ago and currently on levaquin q48hrs 5. HTN stable 6. DM2 stable 7. SHPT continue calcitriol DW hospitalist
--- NOTE | 2018-06-04 11:15 | CON.PCM_ITS ---
Consultation - Renal 06/04/18 PCP/ Referring MD: Requesting physician: [] Primary care physician: Prasad Concepcion III, MD - History of Present Illness History of Present Illness: The patient is a 73 year old M past medical history significant for coronary artery disease status post CABG, s/p multiple percutaneous revascularizations, ischemic cardiomyopathy, hypertension and stage IV chronic kidney disease due to diabetes presented to the hospital on 06/03 with complaints of intermittent interscapular pain for the last couple of months. Does not relate this with activity. He does have chronic shortness of breath worse with exertion. Complains of some orthopnea. No ankle edema. Complains of productive cough. Denied fever or chills. Troponins positive with cardiology consult. SOB improving. Nausea, vomiting improved. Patient was recently diagnosed with pneumonia as outpatient and has been treated with antibiotics. He refused dialysis access placement but agrees now to f/u with Dr. Concepcion.We had multiple discussions about dialysis in the past. Creatinine is at baseline in the 3 range. He has proteinuria but intolerant to ACEI or ARB. - Allergies Allergies: Allergies atorvastatin calcium [From Lipitor] Allergy (Verified 06/02/18 12:01) Pain in joints verapamil [From Covera-HS] Allergy (Verified 06/02/18 12:01) passes out lisinopril Adverse Reaction (Verified 06/02/18 12:01) Other muscle pain Niacin Preparations Adverse Reaction (Verified 06/02/18 12:01) Pain in joints Cholesterol Meds Adverse Reaction (Uncoded 06/02/18 15:13) Pain in joints - Current Medications Current Medications: Current Medications Acetaminophen (Tylenol) 650 mg PO Q6H PRN PRN PRN Reason: Mild Pain (1-3)/Temp > 100.7 F Alprazolam (Xanax) 0.5 mg PO QHS PRN PRN PRN Reason: ANXIETY/INSOMNIA Last Admin: 06/03/18 22:27 Dose: 0.5 mg [facility] Last Admin: 06/04/18 10:01 Dose: 81 mg Calcitriol (Rocaltrol) 0.25 mcg PO DAILY [facility] Last Admin: 06/04/18 10:00 Dose: 0.25 mcg Carvedilol (Coreg) 25 mg PO BID [facility] Last Admin: 04/22/19 10:01 Dose: 25 mg Clopidogrel Bisulfate (Plavix) 75 mg PO DAILY [facility] Last Admin: 06/04/18 10:00 Dose: 75 mg Dextrose (D50w Syringe) 0 gm IV X1 PRN; Protocol PRN Reason: Hypoglycemia Diltiazem HCl (Cardizem Cd) 120 mg PO DAILY [facility] Last Admin: 06/04/18 10:01 Dose: 120 mg Glucagon () 1 mg IM .X1 PRN PRN Reason: Hypoglycemia Heparin Sodium (Porcine) (Heparin Na) 0 unit IV UD PRN; Protocol Last Admin: 06/04/18 06:19 Dose: 1,000 unit Hydralazine HCl (Apresoline) 50 mg PO BID [facility] Last Admin: 06/04/18 10:00 Dose: 50 mg Heparin Sodium/Dextrose () 25,000 units in 250 mls @ 11 mls/hr IV .[id number] [facility]; Protocol Last Admin: 06/04/18 09:55 Dose: Not Given Insulin Glargine (Lantus (Bk)) 14 units SC BREAKFAST [facility] Last Admin: 06/04/18 10:01 Dose: 14 u Insulin Human Lispro (Humalog Kwikpen (Bk)) 0 unit SQ ACHS [facility]; Protocol Last Admin: 06/04/18 06:27 Dose: Not Given Isosorbide Mononitrate (Imdur) 30 mg PO DAILY [facility] Last Admin: 06/04/18 10:00 Dose: 30 mg Levofloxacin (Levaquin Tablet) 500 mg PO Q48@0600 [facility] Stop: 06/08/18 06:01 Last Admin: 06/04/18 05:57 Dose: 500 mg Nitroglycerin (Nitro-Dur) 0.2 mg TRANSDERM. DAILY@0700 [facility] Last Admin: 06/04/18 06:07 Dose: 0.2 mg Pantoprazole Sodium (Protonix) 40 mg PO DAILY [facility] Last Admin: 06/04/18 10:00 Dose: 40 mg Sodium Chloride () 5 - 15 ml IV UD PRN PRN Reason: SALINE FLUSH Last Admin: 06/03/18 22:31 Dose: 10 ml Trazodone HCl (Desyrel) 50 mg PO QHS [facility] Last Admin: 06/03/18 22:27 Dose: 50 mg Venlafaxine HCl (Effexor Xr) 150 mg PO DAILY [facility] Last Admin: 06/04/18 10:01 Dose: 150 mg - Past Medical History Past Medical History (Chronic Problems): Chronic Problems (Last Reviewed 04/20/18 @ 11:02 by Bessy Lr) Stented coronary artery (Chronic 11/08/17) Mildly elevated troponin: cutting balloon angioplasty ([place] 3.0 X 10 mm) and ALBERTO (Synergy 4.0 X 8 mm) placed from proximal to mid left main per Dr. Bustos, [facility] History of right and left heart catheterization (Chronic 11/08/17) Per Dr. Bustos, [facility]>followed by cutting ballon angioplasty and ALBERTO to left main CAD (coronary artery disease) (Chronic) S/P PTCA (percutaneous transluminal coronary angioplasty) (Chronic) Implantable cardioverter-defibrillator (ICD) in situ (Chronic) Ischemic cardiomyopathy (Chronic) 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 Buitrago @ [facility] History of left heart catheterization (Chronic 09/06/17) Atherosclerotic heart disease of [place] coronary artery with other forms of angina pectoris (Chronic) CHARLES to LAD, SVG to RCA and SVG to CX per Dr. Buitrago @ [facility] 09/27/06. Mildly elevated troponin: cutting balloon angioplasty ([place] Cutting Balloon 3.0 X 10 mm) and ALBERTO (Synergy 4.0 X 8 mm) placed from proximal to mid left main per Dr. Bustos, [facility] 11/08/17 DM2 (diabetes mellitus, type 2) (Chronic) CKD (chronic kidney disease), stage IV (Chronic) History of pulmonary embolism (Chronic) Provoked History of hypertension (Chronic) History of hyperlipidemia (Chronic) History of gout (Chronic) 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) - Past Surgical History Surgical History: - - History of ruptured bowel status post colostomy, PCI, CABG, appendectomy, hernia repair. - Social History Smoking Status: Former smoker Alcohol: None Drugs: None - Family History Sibling Family History: Family History (Last Reviewed 04/20/18 @ 11:02 by Bessy Lr) Unknown No problems noted. History Items: Diabetes, Heart Disease, Renal Disease Maternal Family History: Family History (Last Reviewed 04/20/18 @ 11:02 by Bessy Lr) Unknown No problems noted. History Items: Heart Disease Paternal Family History: Family History (Last Reviewed 04/20/18 @ 11:02 by Bessy Lr) Unknown No problems noted. History Items: Heart Disease Review of Systems Constitutional: Reports: Anorexia, Weakness, Fatigue. Denies: Chills, Fever HEENT: Denies: Head Aches, Visual Changes Cardiovascular: Reports: Chest Pain - subscapular pain resoved. Denies: Edema, Orthopnea Respiratory: Reports: Cough, Shortness of Breath, Sputum production Gastrointestinal: Reports: Nausea - resolved. Denies: Abdominal Pain, Diarrhea, Vomiting Genitourinary: Denies: Dysuria Musculoskeletal: Denies: Arm Pain Skin: Denies: Rash Neurological: Denies: Balance problems Psychiatric: Denies: Anxiety, Depression - Physical Exam General: Alert, Oriented x3, Cooperative, No apparent distress HEENT: PERRLA, EOMI Lungs: Rales - left base resolved with deep inspiration Cardiovascular: Regular rate Abdomen: Bowel Sounds Present, Soft, Non Tender, - - colostomy Extremities: No edema Musculoskeletal: No Muscle Wasting Neurological: Cranial nerves II-XII grossly intact Psych/Mental Status: Normal Affect, Appropriate, Alert and oriented to time, place, person, mood and affect Vital Signs Temp Pulse Resp BP Pulse Ox 98.4 F 82 16 135/93 H 96 06/04/18 09:54 06/04/18 10:00 06/04/18 09:54 06/04/18 09:54 06/04/18 09:54 Oxygen Delivery Method Room Air Weight: 71.7 kg Body Mass Index (BMI) 24.0 Intake and Output for Last 24 Hours 06/02/18 06/03/18 06/04/18 23:59 23:59 23:59 Intake Total 200 / 200 1042.3 / 1042.3 110 / 110 Balance 200 / 200 1042.3 / 1042.3 110 / 110 Laboratory Tests Past 24 Hrs 06/03/18 06/03/18 06/04/18 13:44 21:35 04:28 WBC RBC Hgb Hct MCV MCH MCHC RDW RDW Differential Plt Count MPV Immature Gran % (Auto) Neut % (Auto) Lymph % (Auto) [place] % (Auto) Eos % (Auto) Baso % (Auto) Absolute Neuts (auto) Absolute Lymphs (auto) Total Counted APTT 116.5 H* 84.5 H 53.5 H Sodium Potassium Chloride Carbon Dioxide Anion Gap BUN Creatinine Estim Creat Clear Calc Est GFR (MDRD) Af Amer Est GFR (MDRD) Non-Af BUN/Creatinine Ratio Glucose Calcium 06/04/18 06/04/18 05:50 05:50 WBC 6.8 RBC 3.59 L Hgb 10.6 L Hct 32.2 L MCV 89.7 MCH 29.5 MCHC 32.9 RDW 14.9 H RDW Differential 48.3 H Plt Count 198 MPV 10.7 Immature Gran % (Auto) 0.100 Neut % (Auto) 66.7 Lymph % (Auto) 10.4 L [place] % (Auto) 11.6 H Eos % (Auto) 9.7 H Baso % (Auto) 1.5 H Absolute Neuts (auto) 4.6 Absolute Lymphs (auto) 0.71 L Total Counted Not Reportable APTT Sodium 141 Potassium 4.2 Chloride 111 H Carbon Dioxide 21.0 Anion Gap 9 BUN 55 H Creatinine 3.34 H Estim Creat Clear Calc 18.77 Est GFR (MDRD) Af Amer 23 L Est GFR (MDRD) Non-Af 19 L BUN/Creatinine Ratio 16.5 Glucose 122 H Calcium 9.3 POC Glucose 06/04/18 06/03/18 06/03/18 06:27 22:22 16:04 POC Glucose 110 97 122 H 06/03/18 11:08 POC Glucose 192 H Clinical Impression(s) from Imaging Studies Chest X-Ray 06/02/18 12:30 IMPRESSION: Right lower lobe airspace disease could represent infection Electronically Signed: Saud Juarez DO at 13:26 EDT Tel , Service support , Assessment/Plan All Active Problems (Last Reviewed 04/20/18 @ 11:02 by Bessy Lr) Chest pain (Acute) NSTEMI (non-ST elevated myocardial infarction) (Acute) 1 CKD Stage 4 due to diabetes, renal fxn at baseline. No urgency for dialysis. Pt finally agreed to access placement that can be done as an outpt. OK to dc home from renal standpoint. 2. Acute chest pain, +troponins. Cardiology following 3. Anemia hgb stable 10.6g 4. pneumonia treated as outpt 2 wks ago and currently on levaquin q48hrs 5. HTN stable 6. DM2 stable 7. SHPT continue calcitriol DW hospitalist
[2018-06-04] MEDS: Insulin Lispro 100 UNIT/ML INSULN.PEN SQ (12:33)
[2018-06-04 12:46] LABS: Bedside Glucose 291 mg/dL (70-110)
--- NOTE | 2018-06-04 13:10 | CASEMGMT ---
RN RAMOS DISPATCHER TOW TRUCK CM to room to meet with patient for initial transition planning/care coordination assessment. RN RAMOS introduced self and role at [facility]. Pt voices understanding and consents to assessment at this time. Pt resting in bed in no distress at this time. @ bedside. Pt is A/O at this time and answers all questions appropriately. Care providers, pharmacy, and demographics verified/updated at this time. PCP: Pablo , also goes to [facility] every 6 months. Specialists: Akil--cardiology, Lele--nephrology, [facility]--psychiatrist. Preferred Pharmacy: [facility] Insurance: [employer] Prescription Benefit: Yes Living Will/HPOA: Has both LW and HCPOA, who is his , Merle. LNOK: Living Arrangements: Lives in one-story home w/basement. 1-2 steps to enter. States is independent with all ADL's. Uses no assistive device with ambulation Transportation: Pt states drives self and states no transportation concerns at this time. DME: Denies using any DME and denies needs. HHC/SNF: No history of SNF. Did use HHC in the past in 2006, but does not remember name of agency. Denies needs for HHC. No needs identified. Pt wishes to return home and states has no concerns with going home at time of discharge. Pt states does not smoke or drink ETOH. CM to follow for any discharge planning/needs. Pt voices no further concerns/needs at this time. Advised pt to ask for CM if any further questions/concerns/needs arise. Voices understanding. PLAN: Home with spousal support and discharge plans in place. Edda JC RN, CM
--- NOTE | 2018-06-04 13:47 | CASEMGMT ---
LEE BEASLEY NOTE: Pt declines to be transferrred to [facility]. Declination form signed by pt and faxed to [facility]. Copy of form placed on chart and original given to pt. Edda JC RN CM
--- NOTE | 2018-06-04 15:24 | PCM.PROGNOTE ---
Subjective: The patient is a 73-year-old male with a past medical history of chronic systolic congestive heart failure with an ejection fraction of 30%, CAD with history of CABG and PCI, AICD presents, chronic renal failure stage IV, hypertension, hyperlipidemia, gout, hx of colostomy and diabetes mellitus type 2 who presented to the emergency department at [facility] on 06/02/2018 complaining of intermittent pain between his shoulder blades ( for the preceding few months) that radiated to the sternal region anteriorly. Troponin in the emergency department was increased at 0.162. EKG showed no acute changes when compared to an old EKG. Admitting chest x-ray showed right lower lobe airspace disease and he had recently been treated for pneumonia. He was admitted to the hospital and serial cardiac enzymes were ordered. The troponin peak was 1.83. He was seen in consultation by Dr. Teague who felt the increase in the troponin was likely to type II NSTEMI Due to demand ischemia from recent pneumonia. AF VSS, BP is improving urine OP is not being measured States he is feeling much better today. No CP and no SOB. - Physical Exam General: Alert, Oriented x3, Cooperative HEENT: Atraumatic, Normocephalic Oral: Moist Mucosa Neck: JVD, Bilateral Lungs: No rhonchi, No wheeze, Diminished - in the bases with few crackles, - - Mild conversational dyspnea and mildly tachypneic at rest Cardiovascular: Regular rate, Regular Rhythm, Normal S1, Normal S2, No rub noted, No Gallop, - - telemetry with NSR and PVC's. there is a run of wide complex tachycardia.....VT vs SVT Abdomen: Bowel Sounds Present, Soft, Non Tender, Non-Distended Extremities: No edema Neurological: Cranial nerves II-XII grossly intact, Neuro grossly intact Psych/Mental Status: Normal Affect, Appropriate Vital Signs Temp Pulse Resp BP Pulse Ox 97.9 F 71 18 114/70 97 06/04/18 15:11 06/04/18 15:11 06/04/18 15:11 06/04/18 15:11 06/04/18 15:11 Oxygen Delivery Method Room Air Weight: 158 lb 1.143 oz Body Mass Index (BMI) 24.0 Intake and Output for Last 24 Hours 06/02/18 06/03/18 06/04/18 23:59 23:59 23:59 Intake Total 200 / 200 1042.3 / 1042.3 658 / 658 Balance 200 / 200 1042.3 / 1042.3 658 / 658 Microbiology Past 72 Hours 06/02/18 14:20 Blood Culture - Preliminary Blood Culture (Wb) - Left Wrist No growth in 48 hours. 06/02/18 14:10 Blood Culture - Preliminary Blood Culture (Wb) - Anticubital Left No growth in 48 hours. Laboratory Tests Past 24 Hrs 06/03/18 06/04/18 06/04/18 21:35 04:28 05:50 WBC 6.8 RBC 3.59 L Hgb 10.6 L Hct 32.2 L MCV 89.7 MCH 29.5 MCHC 32.9 RDW 14.9 H RDW Differential 48.3 H Plt Count 198 MPV 10.7 Immature Gran % (Auto) 0.100 Neut % (Auto) 66.7 Lymph % (Auto) 10.4 L [place] % (Auto) 11.6 H Eos % (Auto) 9.7 H Baso % (Auto) 1.5 H Absolute Neuts (auto) 4.6 Absolute Lymphs (auto) 0.71 L Total Counted Not Reportable APTT 84.5 H 53.5 H Sodium Potassium Chloride Carbon Dioxide Anion Gap BUN Creatinine Estim Creat Clear Calc Est GFR (MDRD) Af Amer Est GFR (MDRD) Non-Af BUN/Creatinine Ratio Glucose Calcium 06/04/18 05:50 WBC RBC Hgb Hct MCV MCH MCHC RDW RDW Differential Plt Count MPV Immature Gran % (Auto) Neut % (Auto) Lymph % (Auto) [place] % (Auto) Eos % (Auto) Baso % (Auto) Absolute Neuts (auto) Absolute Lymphs (auto) Total Counted APTT Sodium 141 Potassium 4.2 Chloride 111 H Carbon Dioxide 21.0 Anion Gap 9 BUN 55 H Creatinine 3.34 H Estim Creat Clear Calc 18.77 Est GFR (MDRD) Af Amer 23 L Est GFR (MDRD) Non-Af 19 L BUN/Creatinine Ratio 16.5 Glucose 122 H Calcium 9.3 POC Glucose 06/04/18 06/04/18 06/03/18 12:31 06:27 22:22 POC Glucose 291 H 110 97 06/03/18 16:04 POC Glucose 122 H Medical Necessity - Tobacco Use Smoking Status: Former smoker Tobacco Use: Non-smoker Assessment/Plan All Active Problems (Last Reviewed 04/20/18 @ 11:02 by Bessy Lr) Chest pain (Acute) NSTEMI (non-ST elevated myocardial infarction) (Acute) Impressions 1. Acute on chronic systolic congestive heart failure with CP 2. Ischemic cardiomyopathy with a 30% ejection fraction in the past 3. Coronary artery disease with history of CABG and PCI 4. AICD present 5. Chronic renal failure stage IV-follows with Dr. Tracey Royal 6. Hypertension 7. Hyperlipidemia 8. Gout 9. History of colostomy 10. Diabetes mellitus type 2 11. Increased troponin secondary to NSTEMI type II 12. Recent pneumonia Continue current treatment Stress test in the a.m. Complete his course of treatment of pneumonia with Levaquin Code Visit Inpatient E&M: 69300 Subs Hosp L2
[2018-06-04 17:16] LABS: Bedside Glucose 60 mg/dL (70-110)
[2018-06-04] MEDS: traZODone 50 MG Tablet PO (21:09)
[2018-06-04 21:15] LABS: Bedside Glucose 143 mg/dL (70-110)
[2018-06-05] VITALS (11 sets, daily range): BP systolic 129–142; BP diastolic 70–89; PULSE 70–90; RESP 16–20; TEMP 36.3–36.7; O2SAT 95–97
[2018-06-05 05:32] LABS: Absolute Lymphocyte Count 0.85 X10^3/ul (0.83-4.51); Basophil# 0.07 X10^3/uL; Eosinophil# 0.94 X10^3/uL; Hematocrit 29.8 % (40-54); Hemoglobin 9.9 g/dl (13.0-16.5); Lymphocyte # 0.85 X10^3/ul (4.0); Lymphocyte % 12.6 % (19-41); Mean Corp Hgb Conc 33.2 g/gl (32-36); Mean Corpuscular Hgb 29.7 pg (27.0-32.0); Mean Corpuscular Volume 89.5 fL (80-94); Monocyte# 0.83 X10^3/uL; Monocyte% 12.3 % (0-10); Neutrophil # 4.02 X10^3/uL (2.7-7.7); Neutrophil % 59.8 % (47-70); Platelet Count 167 K/mm3 (150-450); RBC Distribution Width CV 14.7 % (11.6-14.6); RBC Distribution Width SD 48.3 fl (35.1-43.9); Red Blood Count 3.33 M/mm3 (4.6-6.2); White Blood Count 6.7 K/mm3 (4.4-11.0)
[2018-06-05 05:33] LABS: POSITIVE COUNT NO; POSITIVE DIFFERENTIAL NO; POSITIVE MORPHOLOGY NO
[2018-06-05 05:36] LABS: International Normalized Ratio 1.3; Partial Thromboplast Time 32.7 Seconds (24.1-36.2); Prothrombin Time (Protime)PT. 15.8 SECONDS (11.7-14.9)
[2018-06-05 05:39] LABS: Anion Gap 9 (5-15); BUN 62 mg/dL (7-18); BUN/Creat Ratio 17.9 RATIO (10-20); Calcium,Total 8.8 mg/dL (8.5-10.1); Chloride 109 mmol/L (98-107); Creatinine, Serum 3.46 mg/dL (0.70-1.30); EST Glomerular Filtration Rate 19 mL/min (>60); Est Glom Filt Rate - Afr Amer 22 mL/min (>60); Estimated Creatinine Clearance 18.12 ml/min; Glucose 114 mg/dL (74-106); Sodium Level 139 mmol/L (136-145)
--- NOTE | 2018-06-05 05:55 | EKG12_ITS ---
Test Reason : AM EKG Blood Pressure : / mmHG Vent. Rate : 078 BPM Atrial Rate : 078 BPM P-R Int : 182 ms QRS Dur : 116 ms QT Int : 432 ms P-R-T Axes : 051 090 -87 degrees QTc Int : 492 ms Normal sinus rhythm Rightward axis Incomplete left bundle branch block ST & T wave abnormality, consider inferolateral ischemia Prolonged QT Abnormal ECG When compared with ECG of 02-JUN-2018 19:38, MANUAL COMPARISON REQUIRED, DATA IS UNCONFIRMED Confirmed by LORRI SANFORD ([id number]), newspaper copy editor YINKA CHRISTOPHER ([id number]) on 06/07/2018 11:19:36 AM Referred By: DR BAIG Confirmed By:LORRI SANFORD
[2018-06-05] MEDS: hydrALAZINE 50 MG Tablet PO ×2 (06:27→20:58)
[2018-06-05] MEDS: Aspirin E.C. 81 MG Tablet PO (06:27)
[2018-06-05] MEDS: Clopidogrel Bisulfate 75 MG Tablet PO (06:27)
[2018-06-05 06:35] LABS: Bedside Glucose 105 mg/dL (70-110)
--- NOTE | 2018-06-05 09:12 | PCM.PN.CARD ---
Subjectve: Patient doing much better this morning, no chest pain. Reports that his back pain was worse when he lay down and get better when he sat forward. Reports that his mid scapular pain and chest pain are similar to his angina prior to his angioplasty and stenting of his left main back in September 2017. Feels much better after antibiotics. Telemetry negative. EKG shows normal sinus rhythm with left bundle branch block and baseline inferior lateral ST-T wave changes. No V. tach. Peak troponin thus far is 1.8. Objective: Vital Signs Temp Pulse Resp BP Pulse Ox 97.5 F L 79 17 142/78 H 96 06/05/18 06:27 06/05/18 07:03 06/05/18 06:27 06/05/18 06:27 06/05/18 06:27 Oxygen Delivery Method Room Air Weight: 158 lb 1.143 oz Body Mass Index (BMI) 24.0 Intake and Output for Last 24 Hours 06/03/18 06/04/18 06/05/18 23:59 23:59 23:59 Intake Total 1042.3 / 1042.3 1058 / 1058 520 / 520 Balance 1042.3 / 1042.3 1058 / 1058 520 / 520 General: Awake, Alert, Oriented x 3 HEENT: PERRL, EOMI, Sclera Non Icteric Neck: Supple, Good ROM, No Lymph Node Enlargement Lungs: Clear to auscultation Cardiovascular: Regular Rhythm, Normal S1, Normal S2, No Murmurs, No Rubs, No Gallops Vascular: No Carotid Bruits, Normal Femoral Pulses, Normal Radial Pulses, Normal Dorsalis Pedal Pulse, Normal Posterior Tibial Pulses Abdomen: Bowel Sounds Present, Soft, Non Tender, No HSM, No Organomegaly Extremities: No Cyanosis, No Clubbing, No edema Neurological: No Focal Motor or Sensory Deficit 06/05/18 05:05: WBC 6.7, RBC 3.33 L, Hgb 9.9 L, Hct 29.8 L, MCV 89.5, MCH 29.7, MCHC 33.2, RDW 14.7 H, RDW Differential 48.3 H, Plt Count 167, MPV 10.0, Immature Gran % (Auto) 0.300, Neut % (Auto) 59.8, Lymph % (Auto) 12.6 L, [place] % (Auto) 12.3 H, Eos % (Auto) 14.0 H, Baso % (Auto) 1.0, Absolute Neuts (auto) 4.0, Total Counted Not Reportable 06/05/18 05:05: PT 15.8 H, INR 1.3, APTT 32.7 06/05/18 05:05: Sodium 139, Potassium 4.0, Chloride 109 H, Carbon Dioxide 21.0, Anion Gap 9, BUN 62 H, Creatinine 3.46 H, Est GFR (MDRD) Af Amer 22 L, Est GFR (MDRD) Non-Af 19 L, BUN/Creatinine Ratio 17.9, Glucose 114 H, Calcium 8.8 Rhythm: EKG: ECHO: Stress Test: Cardiac Cath: PCI: CT Surgery: Holter monitor: EPS: PPM: CXR: Chest CT Scan: Medical Necessity - Tobacco Use Smoking Status: Former smoker Tobacco Use: Non-smoker Assessment/Plan 1. Coronary artery disease: The patient presents with mid scapular back pain similar to his angina prior to his left main stenting in September 2017. He also has a peak troponin of 1.8 however he has stage 3.5 kidney disease, and any dye exposure may tip him over into hemodialysis. In fact, the patient is slated to undergo a AV fistula in the near future with Dr. Royal supervising. Given the patient's tenuous renal issues, I am very hesitant to bring the patient back to the Obstetrical Anesthesiologist and thereby move forward his hemodialysis schedule. I explained to the patient that I would like to get a noninvasive nuclear stress test to determine if he has any large beds of ischemia particularly of the left main territory or of the inferior wall where he has a patent stent of his saphenous vein graft to the RCA identified in September 2017. Patient has a large area of ischemia that may benefit from revascularization, suspicious for in-stent restenosis of either his left main or his saphenous vein graft to the right, I would have a low threshold for at least a quick diagnostic catheterization and relook. I explained the patient that any dye exposure may tip him over into end-stage renal disease necessitating hemodialysis sooner than later, and the patient voices understanding. 2. Hyperlipidemia: Patient has a number of allergies to antilipid therapy. Unable to give statins, niacin, or other anti-goods. 3. Hypertension: Unable to take KIRTI inhibitors or arms given chronic renal insufficiency. Continue Imdur/hydralazine combination. 4. Thank you very much for the opportunity to participate in the cardiac care of your patient. Code Visit Inpatient E&M: 78563 Subs Hosp L2
[2018-06-05 11:00] LABS: Bedside Glucose 166 mg/dL (70-110)
[2018-06-05] MEDS: dilTIAZem CD 120 MG Capsule PO (11:03)
[2018-06-05] MEDS: Acetaminophen 325 MG Tablet 650 MG PO (11:03)
[2018-06-05] MEDS: Venlafaxine XR 75 MG Capsule 150 MG PO (11:03)
[2018-06-05] MEDS: Carvedilol 25 MG Tablet PO ×2 (11:03→21:00)
[2018-06-05] MEDS: Isosorbide Mononitrate 30 MG Tablet PO (11:03)
[2018-06-05] MEDS: Pantoprazole Sodium 40 MG Tablet PO (11:04)
[2018-06-05] MEDS: Calcitriol 0.25 MCG Capsule PO (11:04)
--- NOTE | 2018-06-05 11:37 | STRESSREP ---
Stress Test Report Date: 06-05-18 Procedure: Pharmacologic stress nuclear imaging study Indications: Chest pain; CAD; PCI, CABG; status post ICD Consent: Per the patient Procedure: The patient underwent pharmacologic (Regadenoson) evaluation with a peak heart rate of 101 beats per minute (69 %predicted maximal heart rate) and a peak blood pressure of 144/82 mmHg. The baseline ECG demonstrated sinus rhythm with a left bundle branch block pattern and occasional PVCs. The peak pharmacologic ECG demonstrated no obvious ECG changes. There were occasional PVCs pretest and during recovery. There was notation of chest discomfort during recovery with gradual resolution to baseline. The examination was discontinued secondary to completion of protocol. Impression: 1. Pharmacologic (Regadenoson) evaluation 2. Peak pharmacologic ECG with continued left bundle branch block pattern with no obvious ECG changes. 3. There were occasional PVCs pretest and during recovery. 4. Nuclear images pending Myocardial perfusion imaging study: Technique: The patient was injected with 11.8 millicuries of technetium 99m Cardiolite and subsequently rest SPECT Cardiolite nuclear imaging was obtained in the horizontal long, vertical long, and short axis views. The patient underwent pharmacologic (Regadenoson) evaluation with a peak heart rate of 101 beats per minute (69 % percent predicted maximal heart rate) and a peak blood pressure of 144/82 mmHg. The patient was injected with 33.3 millicuries of technetium 99m Cardiolite and subsequently stress SPECT Cardiolite nuclear imaging was obtained in the horizontal long, vertical long, and short axis views. A gated Cardiolite study at peak stress was obtained. Interpretation: Rest and stress SPECT Cardiolite nuclear imaging status post realignment, normalization, and attenuation correction demonstrate the suggestion of left ventricular dilatation and status post stress the appearance of diminished tracer uptake in portions of the basal to mid inferior septal segments, basal to distal inferior segments/inferior lateral segments, and inferior apical segments.. There is diminished and systolic thickening and brightening. The gated Cardiolite study demonstrates diminished myocardial thickening and inward wall motion. The reported LVEF is 25 %. Impression: 1. Rest and stress SPECT cardiac nuclear imaging demonstrate myocardial perfusion changes suggestive of left ventricular dilatation as well as post stress myocardial perfusion changes suggestive of an area of stress-induced myocardial ischemia and portions of the basal to mid inferior septal, basal to distal inferior/inferolateral segments, and inferior apical segments. 2. The gated Cardiolite study reports an LVEF of 25 %. This note was generated with [employer] software. It may contain incorrect words, spelling, and punctuation that were not noted in checking the note before signing.
--- NOTE | 2018-06-05 11:48 | STRESSREP_ITS ---
Stress Test Report Date: 06-05-18 Procedure: Pharmacologic stress nuclear imaging study Indications: Chest pain; CAD; PCI, CABG; status post ICD Consent: Per the patient Procedure: The patient underwent pharmacologic (Regadenoson) evaluation with a peak heart rate of 101 beats per minute (69 %predicted maximal heart rate) and a peak blood pressure of 144/82 mmHg. The baseline ECG demonstrated sinus rhythm with a left bundle branch block pattern and occasional PVCs. The peak pharmacologic ECG demonstrated no obvious ECG changes. There were occasional PVCs pretest and during recovery. There was notation of chest discomfort during recovery with gradual resolution to baseline. The examination was discontinued secondary to completion of protocol. Impression: 1. Pharmacologic (Regadenoson) evaluation 2. Peak pharmacologic ECG with continued left bundle branch block pattern with no obvious ECG changes. 3. There were occasional PVCs pretest and during recovery. 4. Nuclear images pending Myocardial perfusion imaging study: Technique: The patient was injected with 11.8 millicuries of technetium 99m Cardiolite and subsequently rest SPECT Cardiolite nuclear imaging was obtained in the horizontal long, vertical long, and short axis views. The patient underwent pharmacologic (Regadenoson) evaluation with a peak heart rate of 101 beats per minute (69 % percent predicted maximal heart rate) and a peak blood pressure of 144/82 mmHg. The patient was injected with 33.3 millicuries of technetium 99m Cardiolite and subsequently stress SPECT Cardiolite nuclear imaging was obtained in the horizontal long, vertical long, and short axis views. A gated Cardiolite study at peak stress was obtained. Interpretation: Rest and stress SPECT Cardiolite nuclear imaging status post realignment, normalization, and attenuation correction demonstrate the suggestion of left ventricular dilatation and status post stress the appearance of diminished tracer uptake in portions of the basal to mid inferior septal segments, basal to distal inferior segments/inferior lateral segments, and inferior apical segments.. There is diminished and systolic thickening and brightening. The gated Cardiolite study demonstrates diminished myocardial thickening and inward wall motion. The reported LVEF is 25 %. Impression: 1. Rest and stress SPECT cardiac nuclear imaging demonstrate myocardial perfusion changes suggestive of left ventricular dilatation as well as post stress myocardial perfusion changes suggestive of an area of stress-induced bishnu cardial ischemia and portions of the basal to mid inferior septal, basal to distal inferior/inferolateral segments, and inferior apical segments. 2. The gated Cardiolite study reports an LVEF of 25 %. This note was generated with [employer] software. It may contain incorrect words, spelling, and punctuation that were not noted in checking the note before signing.
--- NOTE | 2018-06-05 12:08 | CASEMGMT ---
According to [facility] website, the following are in-network tertiary facilities: [facility], [place], [facility], [facility], [facility], [facility], [place], [facility], and . Tiffanie HOWARD CM
[2018-06-05] MEDS: Nitroglycerin 0.2 MG Patch TRANSDERM. (12:30)
--- NOTE | 2018-06-05 14:48 | NURSING ---
Spoke with pharmacist. Take nitro patch off before bedtime since it was administered late today
[2018-06-05 16:21] LABS: Bedside Glucose 161 mg/dL (70-110)
[2018-06-05] MEDS: Insulin Lispro 100 UNIT/ML INSULN.PEN SQ (16:43)
[2018-06-05] MEDS: 0.9% NaCl Peripheral Flush Adult/Peds IV (16:43)
[2018-06-05] MEDS: 0.9% Normal Saline 1,000 ML 100 ML IV (18:00)
--- NOTE | 2018-06-05 20:33 | PN_ITS ---
Subjective: All events of the past 24 hours of been reviewed. He is afebrile. Vital signs are stable. He is 95-97% saturated on room air. All lab was personally reviewed. Hemoglobin is 9.9 today and the white blood cell count is 6.7 with 14% eosinophils ( 10.3 at admission) Eosinophils haqve been elevated since 2017? Telemetry shows NSR with PVC's Stress test was + today. He has been seen by Dr. Barnard who plans a cardiac cath in the AM. Pt understands the risk to his kidneys with dye and wishes to proceed with the catheterization. Objective: PHYSICAL EXAM: GENERAL: alert, oriented X 3, Cooperative, NAD ORAL: moist mucosa, no mucosal lesions NECK: less JVD, supple, trachea midline LUNGS: CTA, symmetric chest expansion, diminished in the bases HEART: RRR, Normal S1 and S2, no rub, no gallop ABDOMEN: soft, NT, ND, BS present, no guarding with palpation EXTREMITIES: no edema, no cyanosis, no calf tenderness SKIN: No rashes, no breakdown NEUROLOGIC: no focal neurologic deficits PSYCH: appropriate, normal affect, pleasant - Physical Exam Vital Signs Temp Pulse Resp BP Pulse Ox 97.4 F L 77 16 131/82 H 95 06/05/18 16:45 06/05/18 18:58 06/05/18 16:45 06/05/18 16:45 06/05/18 16:45 Oxygen Delivery Method Room Air Weight: 158 lb 1.143 oz Body Mass Index (BMI) 24.0 Intake and Output for Last 24 Hours 06/03/18 06/04/18 06/05/18 23:59 23:59 23:59 Intake Total 1042.3 / 1042.3 1058 / 1058 1240 / 1240 Balance 1042.3 / 1042.3 1058 / 1058 1240 / 1240 Microbiology Past 72 Hours 06/02/18 14:20 Blood Culture - Preliminary Blood Culture (Wb) - Left Wrist No growth in 48 hours. 06/02/18 14:10 Blood Culture - Preliminary Blood Culture (Wb) - Anticubital Left No growth in 48 hours. Laboratory Tests Past 24 Hrs 06/05/18 06/05/18 06/05/18 05:05 05:05 05:05 WBC 6.7 RBC 3.33 L Hgb 9.9 L Hct 29.8 L MCV 89.5 MCH 29.7 MCHC 33.2 RDW 14.7 H RDW Differential 48.3 H Plt Count 167 MPV 10.0 Immature Gran % (Auto) 0.300 Neut % (Auto) 59.8 Lymph % (Auto) 12.6 L [place] % (Auto) 12.3 H Eos % (Auto) 14.0 H Baso % (Auto) 1.0 Absolute Neuts (auto) 4.0 Absolute Lymphs (auto) 0.85 Total Counted Not Reportable PT 15.8 H INR 1.3 APTT 32.7 Sodium 139 Potassium 4.0 Chloride 109 H Carbon Dioxide 21.0 Anion Gap 9 BUN 62 H Creatinine 3.46 H Estim Creat Clear Calc 18.12 Est GFR (MDRD) Af Amer 22 L Est GFR (MDRD) Non-Af 19 L BUN/Creatinine Ratio 17.9 Glucose 114 H Calcium 8.8 POC Glucose 06/05/18 06/05/18 06/05/18 16:16 10:58 06:31 POC Glucose 161 H 166 H 105 06/04/18 21:00 POC Glucose 143 H Medical Necessity - Tobacco Use Smoking Status: Former smoker Tobacco Use: Non-smoker Assessment/Plan All Active Problems (Last Reviewed 04/20/18 @ 11:02 by Bessy Lr) Chest pain (Acute) NSTEMI (non-ST elevated myocardial infarction) (Acute) Impressions 1. Acute on chronic systolic congestive heart failure with CP 2. Ischemic cardiomyopathy with a 30% ejection fraction in the past 3. Coronary artery disease with history of CABG and PCI 4. AICD present 5. Chronic renal failure stage IV-follows with Dr. Tracey Royal 6. Hypertension 7. Hyperlipidemia 8. Gout 9. History of colostomy 10. Diabetes mellitus type 2 11. Increased troponin secondary to NSTEMI type II 12. Recent pneumonia 13. Abnormal stress test Cardiac catheterization in the a.m. Hydrate prior to the procedure....orders written by Dr. Barnard Code Visit Inpatient E&M: [id number] Subs Hosp L2
[2018-06-05] MEDS: traZODone 50 MG Tablet PO (20:58)
[2018-06-05 21:11] LABS: Bedside Glucose 128 mg/dL (70-110)
[2018-06-05 22:39] LABS: Bacteria 0 SEEN /hpf (None Seen); Mucous, Urine 0 SEEN /hpf (<or=2+); Red Blood Cells-Urine 0 SEEN /hpf (0-5); Squamous Epithelial Cells - UA 0 SEEN /hpf (0-5)
[2018-06-05 22:50] LABS: Color, Urine Yellow (Yellow); Glucose, Dipstick Normal (Normal); Ketone-Dipstick Negative (Negative); Leukocyte Esterase-Dipstick 25 /ul (Negative); Nitrite-Dipstick Negative (Negative); Occult Blood-Urine 10 /ul (Negative); Protein-Dipstick 100 mg/dl (Negative); Urine Bilirubin Dipstick Negative (Negative); Urine Clarity Clear (Clear); Urine Urobilinogen Normal (Normal)
[2018-06-05 22:51] LABS: White Blood Cells 5-10 SEEN /hpf (0-5)
[2018-06-06] VITALS (34 sets, daily range): BP systolic 99–189; BP diastolic 55–95; PULSE 71–91; RESP 18–26; TEMP 36.1–37; O2SAT 90–99
[2018-06-06] MEDS: 0.9% Normal Saline 1,000 ML 100 ML IV (04:32)
--- NOTE | 2018-06-06 05:00 | EKG12_ITS ---
Test Reason : MORNING EKG Blood Pressure : / mmHG Vent. Rate : 088 BPM Atrial Rate : 088 BPM P-R Int : 180 ms QRS Dur : 164 ms QT Int : 448 ms P-R-T Axes : 064 102 -27 degrees QTc Int : 542 ms Sinus rhythm with Premature atrial complexes Rightward axis Left bundle branch block Abnormal ECG Confirmed by RODRICK CABRERA, ALAINA ([id number]), visual effects editor YINKA CHRISTOPHER ([id number]) on 06/11/2018 12:31:26 PM Referred By: SAFIA Confirmed By:ALAINA MENSAH MD
[2018-06-06 05:36] LABS: Hematocrit 30.2 % (40-54); Hemoglobin 9.9 g/dl (13.0-16.5); Mean Corp Hgb Conc 32.8 g/gl (32-36); Mean Corpuscular Hgb 29.6 pg (27.0-32.0); Mean Corpuscular Volume 90.1 fL (80-94); Platelet Count 190 K/mm3 (150-450); RBC Distribution Width CV 15.2 % (11.6-14.6); RBC Distribution Width SD 49.8 fl (35.1-43.9); Red Blood Count 3.35 M/mm3 (4.6-6.2); White Blood Count 7.6 K/mm3 (4.4-11.0)
[2018-06-06 05:37] LABS: International Normalized Ratio 1.3; Prothrombin Time (Protime)PT. 15.8 SECONDS (11.7-14.9)
[2018-06-06 05:38] LABS: Partial Thromboplast Time 31.5 Seconds (24.1-36.2)
[2018-06-06 05:46] LABS: Scan Indicated on CBC? Y/N NO
[2018-06-06 06:17] LABS: Anion Gap 11 (5-15); BUN 66 mg/dL (7-18); BUN/Creat Ratio 18.8 RATIO (10-20); Calcium,Total 8.8 mg/dL (8.5-10.1); Chloride 111 mmol/L (98-107); Creatinine, Serum 3.51 mg/dL (0.70-1.30); EST Glomerular Filtration Rate 18 mL/min (>60); Est Glom Filt Rate - Afr Amer 22 mL/min (>60); Estimated Creatinine Clearance 17.86 ml/min; Glucose 128 mg/dL (74-106); Potassium 4.2 mmol/L (3.5-5.1); Sodium Level 141 mmol/L (136-145)
[2018-06-06] MEDS: levoFLOXacin 500 MG Tablet PO (06:27)
[2018-06-06] MEDS: Nitroglycerin 0.2 MG Patch TRANSDERM. ×2 (06:28→09:45)
[2018-06-06] MEDS: Clopidogrel Bisulfate 75 MG Tablet PO (06:28)
[2018-06-06] MEDS: DiphenhydrAMINE 25 MG Capsule 50 MG PO (06:28)
[2018-06-06] MEDS: Aspirin E.C. 81 MG Tablet PO (06:28)
[2018-06-06] MEDS: dilTIAZem CD 120 MG Capsule PO (06:29)
[2018-06-06] MEDS: Isosorbide Mononitrate 30 MG Tablet PO (06:29)
[2018-06-06] MEDS: Carvedilol 25 MG Tablet PO ×2 (06:29→18:28)
[2018-06-06] MEDS: hydrALAZINE 50 MG Tablet PO ×2 (06:49→18:03)
[2018-06-06 06:51] LABS: Bedside Glucose 130 mg/dL (70-110)
--- NOTE | 2018-06-06 07:36 | NURSING ---
Report called to [facility] in [facility]. They are ready for pt. to come to [facility].
--- NOTE | 2018-06-06 08:35 | PN_ITS ---
Subjective: Afebrile Systolic blood pressures have been increased Pulse ox is 93-95% on room air currently All lab was personally reviewed. White blood cell count is 7.6 today. Hemoglobin is stable at 9.9 and platelets are within normal limits. Serum bicarb is mildly decreased at 19 and the BUN is 66 with a creatinine of 3.51. Cardiac cath had an 85% occlusion of the saphenous vein graft to RCA distal to the previous stent. he had PTCA/ALBERTO and post procedure there is 0% stenosis. He was seen and examined post procedure in the [facility] unit - Physical Exam General: Cooperative, No apparent distress, - - drowsy - tells me that he did not sleep well last night because he was anxious. Denies CP and SOB. Oral: Moist Mucosa Neck: Supple, No JVD Lungs: - - Lying nearly flat in bed with no shortness of breath, no tachypnea, no conversational dyspnea Cardiovascular: Regular rate, Regular Rhythm, Normal S1, Normal S2, No rub noted, No Gallop Abdomen: Bowel Sounds Present, Soft, Non Tender, Non-Distended, - - no groin hematoma and no bruit Skin: No rashes, No breakdown Neurological: Cranial nerves II-XII grossly intact, Neuro grossly intact Vital Signs Temp Pulse Resp BP Pulse Ox 98.0 F 91 20 H 146/72 H 96 06/06/18 06:49 06/06/18 06:49 06/06/18 06:49 06/06/18 06:49 06/06/18 06:49 Oxygen Flow Rate (L/min) 2 Oxygen Delivery Method Nasal Cannula Weight: 158 lb 1.143 oz Body Mass Index (BMI) 24.0 Intake and Output for Last 24 Hours 06/04/18 06/05/18 06/06/18 23:59 23:59 23:59 Intake Total 1058 / 1058 1832 / 1832 758 / 758 Balance 1058 / 1058 1832 / 1832 758 / 758 Microbiology Past 72 Hours 06/02/18 14:20 Blood Culture - Preliminary Blood Culture (Wb) - Left Wrist No growth in 48 hours. 06/02/18 14:10 Blood Culture - Preliminary Blood Culture (Wb) - Anticubital Left No growth in 48 hours. Laboratory Tests Past 24 Hrs 06/05/18 06/06/18 06/06/18 22:25 04:52 04:52 WBC 7.6 RBC 3.35 L Hgb 9.9 L Hct 30.2 L MCV 90.1 MCH 29.6 MCHC 32.8 RDW 15.2 H RDW Differential 49.8 H Plt Count 190 MPV 11.0 PT 15.8 H INR 1.3 APTT 31.5 Sodium Potassium Chloride Carbon Dioxide Anion Gap BUN Creatinine Estim Creat Clear Calc Est GFR (MDRD) Af Amer Est GFR (MDRD) Non-Af BUN/Creatinine Ratio Glucose Calcium Urine Color Yellow Urine Clarity Clear Urine pH 5.0 Ur Specific [place] 1.020 Urine Protein 100 H Urine Glucose (UA) Normal Urine Ketones Negative Urine Occult Blood 10 H Urine Nitrite Negative Urine Bilirubin Negative Urine Urobilinogen Normal Ur Leukocyte Esterase 25 H Urine RBC 0 SEEN Urine WBC 5-10 SEEN Ur Squamous Epith Cells 0 SEEN Urine Bacteria 0 SEEN Urine Mucus 0 SEEN 06/06/18 04:52 WBC RBC Hgb Hct MCV MCH MCHC RDW RDW Differential Plt Count MPV PT INR APTT Sodium 141 Potassium 4.2 Chloride 111 H Carbon Dioxide 19.0 L Anion Gap 11 BUN 66 H Creatinine 3.51 H Estim Creat Clear Calc 17.86 Est GFR (MDRD) Af Amer 22 L Est GFR (MDRD) Non-Af 18 L BUN/Creatinine Ratio 18.8 Glucose 128 H Calcium 8.8 Urine Color Urine Clarity Urine pH Ur Specific [place] Urine Protein Urine Glucose (UA) Urine Ketones Urine Occult Blood Urine Nitrite Urine Bilirubin Urine Urobilinogen Ur Leukocyte Esterase Urine RBC Urine WBC Ur Squamous Epith Cells Urine Bacteria Urine Mucus POC Glucose 06/06/18 06/05/18 06/05/18 06:43 20:55 16:16 POC Glucose 130 H 128 H 161 H 06/05/18 10:58 POC Glucose 166 H Medical Necessity - Tobacco Use Smoking Status: Former smoker Tobacco Use: Non-smoker Assessment/Plan All Active Problems (Last Updated 06/06/18 @ 09:54 by Bessy Lr) Chest pain (Acute) NSTEMI (non-ST elevated myocardial infarction) (Acute 06/05/18) Impressions 1. Acute on chronic systolic congestive heart failure with CP 2. Ischemic cardiomyopathy with a 30% ejection fraction in the past 3. Coronary artery disease with history of CABG and PCI 4. AICD present 5. Chronic renal failure stage IV-follows with Dr. Tracey Royal 6. Hypertension 7. Hyperlipidemia 8. Gout 9. History of colostomy 10. Diabetes mellitus type 2 11. Increased troponin secondary to NSTEMI type II 12. Recent pneumonia 13. Abnormal stress test 14. PTCA/ALBERTO to the SVG to RCA distal to the stent recheck the lab in the AM increase the HS Trazodone to 100 mg tonight. Code Visit Inpatient E&M: 43584 Subs Hosp L2
--- NOTE | 2018-06-06 09:26 | CL.I_ITS ---
Patient Name: YVETTE BECERRA Study Date: 06/06/2018 Performing: Jayy Barnard MD Ht: 68 inches 173 cm : 1945 Wt: 158.9 lbs 72 kg Age: 73 Gender: male BSA: 1.85 PROCEDURE(S) PERFORMED [id number]/CABG [id number] AND/OR PTCA, SINGLE GRAFT CLINICAL PROFILE AND CO-MORBIDITIES Patient presents with NSTEMI for urgent cardiac cath Indications: ACS > 24 hrs, Worsening Angina, Stable Known CAD, LV Dysfunction Heart Failure: NYHA Class: 1, Newly Diagnosed: No, Heart Failure Type: Systolic Stress/Imaging Date: 06/04/2018 Stress Test with SPECT MPI: Positive Intermediate Risk Angina Classification Anginal Classification w/in 2 Weeks: CCS IV CAD Presentations: Unstable angina. Non-STEMI. Symptom onset Date/Time: 06/04/2018 Time Not Availa ble Comorbidities/Risk Factors: Hypertension Dyslipidemia Prior CHF Prior PCI Prior CABG Diabetes Mellitus: Diabetes Therapy: Insulin CONCLUSIONS Triple vessel CAD of the LAD, RCA, LCX Critical lesion in SVG to RCA distal to previous stent Successful PTCA/ALBERTO distal SVG to RCA with filter wire assistance with a 3.0 x 16 Promus Synergy, pos t dilated with a 3.0 x 8 NC Balloon; 85%-->0%, no dissection or distal embolization. No additional P CI of king salmon RCA or LCX ISR done today due to CRI. RECOMMENDATIONS Referred for immediate PCI Highly recommend quitting all tobacco products Follow up with primary char filter operator helper Risk factor modification ASA Indefinitley Plavix for at least 12 months Routine post interventional care Refer for Outpatient Cardiac Rehab Manual sheath removal per protocol Follow up with Dr. Barnard Medical management of proximal SVG to RCA stenosis as well as LCX ISR unless or untial pt has recurre nt anginal symtpoms. Pt may proceed with AV fistula placement. Manaul sheath removal. DESCRIPTION OF PROCEDURE The patient arrived to the procedure lab. The risks and benefits of the procedure as well as a full d escription of our services here and lack of surgical backup were fully explained to the patient and/o r their significant other prior to the catheterization. The Timeout was completed, verifying the julieta ect patient and procedure. The patient's procedural site was prepped and draped in the usual fashion. Local anesthetic was given subcutaneously to right groin region with Lidocaine 2%. Using a modified Seldinger technique, arterial access was obtained via the right femoral artery, a 4Fr sheath was inse rted. Left Coronary Artery selective angiography was performed in multiple views using a 4 Fr. JL5 c atheter. Saphenous Vein graft to the RCA selective angiography was performed in multiple views using a 4 Fr. AR MOD 2 catheter Arterial sheath was exchanged for a 6 Fr Sheath. BMW Guide wire was advanced to the Right PDA. MP 2 Guide catheter was inserted and engaged into the SVG to the Rt PDA. 2x12 Emerge Balloon catheter wa s inserted. Balloon catheter was advanced across lesion in the posterior descending, distal. PTCA bal loon inflated at 8 atms for 15 secs. PTCA balloon inflated at 6 atms for 8 secs. PTCA balloon inflate d at 6 atms for 8 secs. PTCA balloon inflated at 8 atms for 10 secs. 3x16 Synergy Drug Eluting stent was inserted. Drug Eluting stent was advanced across the lesion in the graft to the Rt PDA. Angiogram performed post stent deployment. 3x8 NC Emerge Balloon catheter was inserted. Balloon catheter was i nserted post stent. Angiogram performed post stent deployment. The arterial sheath was sutured in p lace and capped CORONARY ANGIOGRAPHY DOMINANCE: Right Dominant LEFT HEART ASSESSMENT Left Ventricular Ejection Fraction: Not assessed LEFT MAIN: Previously placed stent is patent LEFT ANTERIOR DECENDING ARTERY: PROX LAD: is occluded CIRCUMFLEX ARTERY: MID CIRC: Instent restenosis 65 distal % RIGHT CORONARY ARTERY: is occluded GRAFTS: CHARLES graft to the LAD is patent (as previously seen on cath in 11/10/17, not engaged today) Saphenous Vein graft to the CIRC is totally occluded (previously documented on 11/10.) Saphenous Vein graft to the RCA has a distal lesion of 85 % Saphenous Vein graft to the RCA previously placed stent is patent INTERVENTION INFORMATION LESION SITE: Vein > to Rt PDA Segment Number: 4-Right posterior descending artery segment - rPDA , L esion Location: Distal Lesion Complexity: High/C, lesion at bifurcation: No, thrombus present: No, lesion length: 16 mm, cul prit lesion: Yes Pre Stenosis: 85 % Pre intervention MONISHA flow: 3 PROCEDURE: Drug Eluting Stent with pre and post dilatation Post Stenosis: 0 % Post intervention MONISHA flow: 3 Lesion Devices: myRetetronic 6 Fr MP2 100cm Guide Catheter Ceron .014 BMW Barre Straight 190cm Emeka Sci EMERGE MR 2.00x12 BALLOON Emeka Sci Small Vessel 2.25-3.5 Filter Wire 190cm Emeka Sci Synergy MR ALBERTO 3.00x16 Emeka Sci NC EMERGE MR 3.00x08 BALLOON COMPLICATIONS No Complications PROCEDURE MEDICATIONS Versed 1 mg IV Oxygen: 2 L/min via nasal cannula Heparin 6000 unit(s) IV 06/06/2018 08:28:58 Nitro 200 mcg IC 06/06/2018 08:30:21 SUMMARY OF HEMODYNAMIC DATA Time AIR REST ECG 07:56:48 AO 151/79 (107) SA 08:18:42 LV 136/3, 34 08:23:57 LV 137/0, 33 08:24:04 LVp 138/-4, 28 08:24:28 AOp 148/67 (96) 08:24:33 Signed By Jayy Barnard MD On 06/06/2018 09:25:49 Jayy Barnard MD
--- NOTE | 2018-06-06 09:33 | EKG12_ITS ---
Test Reason : AM EKG Blood Pressure : / mmHG Vent. Rate : 083 BPM Atrial Rate : 083 BPM P-R Int : 186 ms QRS Dur : 112 ms QT Int : 412 ms P-R-T Axes : 059 080 -86 degrees QTc Int : 484 ms Sinus rhythm with frequent and consecutive Premature ventricular complexes Incomplete left bundle branch block ST & T wave abnormality, consider inferolateral ischemia Prolonged QT Abnormal ECG Confirmed by RODRICK CABRERA, ALAINA ([id number]), managing editor YINKA CHRISTOPHER ([id number]) on 06/11/2018 12:36:29 PM Referred By: SAFIA Confirmed By:ALAINA MENSAH MD
[2018-06-06] MEDS: 0.9% Normal Saline 1,000 ML 150 ML IV (09:55)
--- NOTE | 2018-06-06 10:00 | EKG12_ITS ---
Test Reason : Blood Pressure : / mmHG Vent. Rate : 077 BPM Atrial Rate : 077 BPM P-R Int : 188 ms QRS Dur : 118 ms QT Int : 430 ms P-R-T Axes : 052 091 -81 degrees QTc Int : 486 ms Normal sinus rhythm Incomplete left bundle branch block ST & T wave abnormality, consider inferolateral ischemia Prolonged QT Abnormal ECG Confirmed by RODRICK CABRERA, ALAINA ([id number]), editor city YINKA CHRISTOPHER ([id number]) on 06/11/2018 12:36:46 PM Referred By: Confirmed By:ALAINA MENSAH MD
[2018-06-06 10:06] LABS: ACT Activated Clotting Time 186 sec (74-137)
[2018-06-06 10:15] LABS: ACT Activated Clotting Time 175 sec (74-137)
[2018-06-06 11:10] LABS: ACT Activated Clotting Time 169 sec (74-137)
--- NOTE | 2018-06-06 11:13 | NURSING ---
called to scientific laboratory supervisor for back up for sheath pull. notified per aidan Luna are all involved in cases or at lunch. she was unable to give an approximate time frame and will have staff call before he or she comes up.
[2018-06-06] MEDS: Midazolam 2 MG/2 ML Syringe 1 MG IV (11:35)
[2018-06-06 12:46] LABS: Bedside Glucose 109 mg/dL (70-110)
--- NOTE | 2018-06-06 15:34 | CASEMGMT ---
LEE BEASLEY NOTE: Call received from Kat @ [facility]. She was inquiring if pt still currently @ [facility] and asked this RN RAMOS to return call with information. Return call placed to Kat @ , Ext: [phone]. No answer. Message left stating that pt is currently an IN-patient @ [facility]. Phone number for LEE BEASLEY Familia left on as well for her to call if she would have any further questions. Edda ALMENDAREZN LEE CM
[2018-06-06] MEDS: Venlafaxine XR 75 MG Capsule 150 MG PO (16:14)
[2018-06-06] MEDS: Calcitriol 0.25 MCG Capsule PO (16:15)
--- NOTE | 2018-06-06 16:27 | PCM.PN.BLA ---
Progress Note Patient is scheduled for a post hospital follow-up on 06/20/2018 at 10 AM at the [facility] Office with Ángel Nurse Practitioner.
[2018-06-06] MEDS: LORazepam 1 MG Tablet PO (18:28)
[2018-06-06] MEDS: Nitroglycerin Oint 1 INCH PACKET TRANSDERM. (18:30)
--- NOTE | 2018-06-06 18:30 | NURSING ---
pt up to chair w/out diff./co. pt states he feels much better now that he is out of bed. disc what pt should watch for pain/.burning in groin/wet feeling. meds given for BP. accucheck 88. pt encouraged to eat. before this RN left pt room, pt stated he felt pain in r inner groin. golf ball size hematoma noted. immed pressure to area.w/that pressure hematoma 1/2 golf ball size noted above puncture site. w/ 3 assist pt to bed while maintaining groin pressure. pressure held 10 min. r groin soft/no bleeding at site. pulses present. Dr. Barnard notified above and of VS/post cath checks throughout the day. orders recd
[2018-06-06 18:36] LABS: Bedside Glucose 88 mg/dL (70-110)
[2018-06-06] MEDS: Insulin Lispro 100 UNIT/ML INSULN.PEN SQ (21:33)
[2018-06-06] MEDS: Pantoprazole Sodium 40 MG Tablet PO (21:33)
[2018-06-06] MEDS: traZODone 50 MG Tablet 100 MG PO (21:33)
[2018-06-06 21:51] LABS: Bedside Glucose 200 mg/dL (70-110)
[2018-06-07] VITALS (25 sets, daily range): BP systolic 133–184; BP diastolic 54–101; PULSE 65–90; RESP 16–26; TEMP 36.5–36.7; O2SAT 93–98; BMI 23.9
[2018-06-07 04:52] LABS: Hematocrit 25.4 % (40-54); Hemoglobin 8.5 g/dl (13.0-16.5); Mean Corp Hgb Conc 33.5 g/gl (32-36); Mean Corpuscular Hgb 30.6 pg (27.0-32.0); Mean Corpuscular Volume 91.4 fL (80-94); Mean Platelet Vol. 9.9 fl (6.2-12.0); Platelet Count 169 K/mm3 (150-450); RBC Distribution Width CV 14.9 % (11.6-14.6); RBC Distribution Width SD 48.6 fl (35.1-43.9); Red Blood Count 2.78 M/mm3 (4.6-6.2); Scan Indicated on CBC? Y/N NO; White Blood Count 8.8 K/mm3 (4.4-11.0)
[2018-06-07 04:58] LABS: Anion Gap 9 (5-15); BUN 62 mg/dL (7-18); BUN/Creat Ratio 19.2 RATIO (10-20); Calcium,Total 8.6 mg/dL (8.5-10.1); Chloride 114 mmol/L (98-107); Creatinine, Serum 3.23 mg/dL (0.70-1.30); EST Glomerular Filtration Rate 20 mL/min (>60); Est Glom Filt Rate - Afr Amer 24 mL/min (>60); Estimated Creatinine Clearance 19.41 ml/min; Glucose 152 mg/dL (74-106); Potassium 4.3 mmol/L (3.5-5.1); Sodium Level 141 mmol/L (136-145)
--- NOTE | 2018-06-07 07:34 | CRPHASE1 ---
Patient Communication PHII Cardiac Rehab Discussed with Patient:: Yes Guide to Cardiac Rehab Given to Patient:: Yes Cardiac Rehab Facility Choice List Given to Patient:: Yes - [place] Choice [facility] CR PHII:: Communication Given to CR, Refer to [facility] Choice Program Other:: Communication Given to CR, With permission faxed order and referral information Exterminator Termite:: Jayy Barnard PCP:: Prasad Concepcion III Sessions:: 36 sessions - 3 days/wk, 12 weeks Risk Factors/Lifestyle Smoking Status: Former smoker Hx Diabetes Mellitus Type 2: Yes Hx Dyslipidemia: Yes Height: 1.73 m Weight:: 71.7 kg BMI: 23.9 Stress: Home/Family ETOH: No Caffeine: Yes Substance Abuse: No Family History: Family History (Last Reviewed 04/20/18 @ 11:02 by Bessy Lr) Unknown No problems noted. Issues Affecting Care:: None Knowledge of Condition:: Yes Hospital Course Pain Description: Sharp, Burning Pain Intensity: 10 Cardiac Cath Date:: 06/06/18 Medical/Surgical History Angina:: Yes CAD:: Yes Diabetes Type II:: Yes Hypertension:: Yes Dyslipidemia:: Yes CABG: Yes PTCA:: Yes Discharge/Home/Social Eval Discharge Disposition: Home Cardiac Rehabilitation Info Cardiac Rehabilitation Program Information: Cardiac Rehabilitation is important for patients like you who are recovering from a heart problem. Cardiac rehabilitation programs are recognized as integral to the continued care of the patient with coronary heart disease. The cardiac rehabilitation program is designed to optimize a patient's physical, psychological, and social functioning. Health managed care analyst work in cardiac rehabilitation programs and assist you with getting the treatments you need to get stronger and healthier - like exercise, healthy eating habits, and medications. Cardiac rehabilitation has been show to help people with heart problems live longer and have better life enjoyment than people who do not go to cardiac rehabilitation. Please contact the Cardiac Rehabilitation Program at [facility] at in two weeks if you have not heard from them.
--- NOTE | 2018-06-07 07:38 | CRPHASE1_ITS ---
Patient Communication PHII Cardiac Rehab Discussed with Patient:: Yes Guide to Cardiac Rehab Given to Patient:: Yes Cardiac Rehab Facility Choice List Given to Patient:: Yes - [place] Choice [facility] PHII:: Communication Given to CR, Refer to [facility] Choice Program Other:: Communication Given to CR, With permission faxed order and referral information Music Department Chair:: Jayy Barnard PCP:: Prasad Concepcion III Sessions:: 36 sessions - 3 days/wk, 12 weeks Risk Factors/Lifestyle Smoking Status: Former smoker Hx Diabetes Mellitus Type 2: Yes Hx Dyslipidemia: Yes Height: 1.73 m Weight:: 71.7 kg BMI: 23.9 Stress: Home/Family ETOH: No Caffeine: Yes Substance Abuse: No Family History: Family History (Last Reviewed 04/20/18 @ 11:02 by Bessy Lr) Unknown No problems noted. Issues Affecting Care:: None Knowledge of Condition:: Yes Hospital Course Pain Description: Sharp, Burning Pain Intensity: 10 Cardiac Cath Date:: 06/06/18 Medical/Surgical History Angina:: Yes CAD:: Yes Diabetes Type II:: Yes Hypertension:: Yes Dyslipidemia:: Yes CABG: Yes PTCA:: Yes Discharge/Home/Social Eval Discharge Disposition: Home Cardiac Rehabilitation Info Cardiac Rehabilitation Program Information: Cardiac Rehabilitation is important for patients like you who are recovering from a heart problem. Cardiac rehabilitation programs are recognized as integral to the continued care of the patient with coronary heart disease. The cardiac rehabilitation program is designed to optimize a patient's physical, psychological, and social functioning. Health foster care worker work in cardiac rehabilitation programs and assist you with getting the treatments you need to get stronger and healthier - like exercise, healthy eating habits, and medications. Cardiac rehabilitation has been show to help people with heart problems live longer and have better life enjoyment than people who do not go to cardiac rehabilitation. Please contact the Cardiac Rehabilitation Program at [facility] at in two weeks if you have not heard from them.
--- NOTE | 2018-06-07 07:38 | CRPH1.INSTRU ---
General Education CAD and cardiac anatomy and function:: Patient communicates acknowledgment Explanation of diagnoses and procedures:: Patient communicates acknowledgment Sign/Symptoms of VA:: Patient communicates acknowledgment Emergency procedures and activation of EMS: Patient communicates acknowledgment Smoking Patient Nicotine/Smoking Risk Factors Are:: Non-smoker Dyslipidemia Recommendations Include:: Lipid profile not available Overweight/Obesity Overweight/Obesity:: Not instructed Hypertension Recommendations Include:: Maintain BP <130/85, BP <130/80 if diabetic, DASH dietary guidelines Heart Disease Patient Heart Disease Risk Factors Are:: Family history of heart disease < 65 years old, Previous cardiac event Recommendations Include:: Educated family members of their risk Heart Disease Response Code:: Patient communicates acknowledgment Diabetes Recommendations Include:: Maintain fasting blood sugars 70-110 md/dL, Maintain HgbA1c of 6% or less, Monitor blood sugar as prescribed, Diabetic dietary guidelines, Decrease/maintain body weight Diabetes:: Patient communicates acknowledgment Metabolic Syndrome Patient Metabolic Syndrome Risk Factors Are [3 of 5]:: Fasting blood sugar > 100 mg/dL, Hypertension Recommendations Include:: Patient is diabetic Metabolic Syndrome Response Code:: Patient communicates acknowledgment Sedentary Patient Sedentary Risk Factors Are:: Lack of regular exercise Stress Patient Stress Risk Factors Are:: Patient denies stress as a risk factor
[2018-06-07 07:56] LABS: Bedside Glucose 117 mg/dL (70-110)
[2018-06-07] MEDS: hydrALAZINE 50 MG Tablet PO (07:58)
--- NOTE | 2018-06-07 07:58 | CRPH1.INST_ITS ---
General Education CAD and cardiac anatomy and function:: Patient communicates acknowledgment Explanation of diagnoses and procedures:: Patient communicates acknowledgment Sign/Symptoms of AR:: Patient communicates acknowledgment Emergency procedures and activation of EMS: Patient communicates acknowledgment Smoking Patient Nicotine/Smoking Risk Factors Are:: Non-smoker Dyslipidemia Recommendations Include:: Lipid profile not available Overweight/Obesity Overweight/Obesity:: Not instructed Hypertension Recommendations Include:: Maintain BP <130/85, BP <130/80 if diabetic, DASH dietary guidelines Heart Disease Patient Heart Disease Risk Factors Are:: Family history of heart disease < 65 years old, Previous cardiac event Recommendations Include:: Educated family members of their risk Heart Disease Response Code:: Patient communicates acknowledgment Diabetes Recommendations Include:: Maintain fasting blood sugars 70-110 md/dL, Maintain HgbA1c of 6% or less, Monitor blood sugar as prescribed, Diabetic dietary guidelines, Decrease/maintain body weight Diabetes:: Patient communicates acknowledgment Metabolic Syndrome Patient Metabolic Syndrome Risk Factors Are [3 of 5]:: Fasting blood sugar > 100 mg/dL, Hypertension Recommendations Include:: Patient is diabetic Metabolic Syndrome Response Code:: Patient communicates acknowledgment Sedentary Patient Sedentary Risk Factors Are:: Lack of regular exercise Stress Patient Stress Risk Factors Are:: Patient denies stress as a risk factor
[2018-06-07] MEDS: Clopidogrel Bisulfate 75 MG Tablet PO (07:59)
[2018-06-07] MEDS: Carvedilol 25 MG Tablet PO (07:59)
--- NOTE | 2018-06-07 08:57 | ADUL_ITS ---
Reason For Study: RT GROIN BRUIT S/P HEART CATH Right Velocities RT C SOFTWARE ENGINEER - .74 x .71 with a velocity of 128.6 cm/s RT CFV demonstrates normal phasic flow signal. No evidence of pseudoaneurysm or AV fistula. Procedure Exam performed portable in patient room. Interpretation Summary Normal diameter and flow right common femoral artery and vein without evidence for pseudoaneurysm or fistula. Ordering Physician: Jayla Galeas Referring Physician: JENNY Concepcion M.D. Performed By: Mel Marcus RVT
[2018-06-07] MEDS: Venlafaxine XR 75 MG Capsule 150 MG PO (09:05)
[2018-06-07] MEDS: dilTIAZem CD 120 MG Capsule PO (09:05)
[2018-06-07] MEDS: Isosorbide Mononitrate 30 MG Tablet PO (09:06)
[2018-06-07] MEDS: Calcitriol 0.25 MCG Capsule PO (09:06)
[2018-06-07] MEDS: Aspirin E.C. 81 MG Tablet PO (09:09)
--- NOTE | 2018-06-07 09:19 | PN_ITS ---
Subjective: Patient is post catheterization and PTCA/ALBERTO on 06/06/2018. He developed a hematoma in the right groin. Currently denies pain in the right groin. There is bruising of the medial thigh on the left but the tissue is soft. He has developed a bruit in the left groin. He slept off and on last night with the increase in the trazodone. He has been very anxious about his kidney function and everything he has to do at home. He has been on Effexor XR and mirtazapine at bedtime for several years. He admits to being depressed and knows he is anxious. He has had a few psychotherapy sessions at the [facility] but did not feel they helped and he like felt like they were talking about the same thing all of the time. Blood pressure has been erratic and goes up when he is anxious. Over the past 24 hours it has ranged from 99/79-170 1/94. Heart rate is well controlled and is in the 70s to 90 range Oxygen saturation is 96 to 97% on room air. All lab was personally reviewed. Hemoglobin has dropped to 8.5 from 9.9- possibly secondary to hematoma plus/minus hydration prior to catheterization. The hemoglobin is 3.23 down from 3.51 on 06/06/2018. Serum bicarb is 18. Blood sugars are well controlled. He tells me today that he has been taking mirtazapine every night for several years. It was not listed on his medication list that admission. This may be why he is not sleeping well. Objective: - Physical Exam General: Cooperative, No apparent distress,alert, restless in the bed Oral: Moist Mucosa Neck: Supple, No JVD Lungs: - - Lying nearly flat in bed with no shortness of breath, no tachypnea, no conversational dyspnea and a very good pulse ox Cardiovascular: Regular rate, Regular Rhythm, Normal S1, Normal S2, No rub noted, No Gallop Abdomen: Bowel Sounds Present, Soft, Non Tender, Non-Distended, there is bruising medial thigh but the tissue is soft. No blood on the dressing. + bruit today L groin Skin: No rashes, No breakdown Neurological: Cranial nerves II-XII grossly intact, Neuro grossly intact - Physical Exam Vital Signs Temp Pulse Resp BP Pulse Ox 98.0 F 90 22 H 135/54 H 96 06/07/18 04:00 06/07/18 07:58 06/07/18 07:00 06/07/18 07:58 06/07/18 07:00 Oxygen Flow Rate (L/min) 2 Oxygen Delivery Method Room Air Weight: 158 lb 1.143 oz Body Mass Index (BMI) 24.0 Intake and Output for Last 24 Hours 06/05/18 06/06/18 06/07/18 23:59 23:59 23:59 Intake Total 1832 / 1832 2258 / 2258 150 / 150 Output Total 825 / 825 325 / 325 Balance 1832 / 1832 1433 / 1433 -175 / -175 Microbiology Past 72 Hours 06/02/18 14:20 Blood Culture - Preliminary Blood Culture (Wb) - Left Wrist No growth in 48 hours. 06/02/18 14:10 Blood Culture - Preliminary Blood Culture (Wb) - Anticubital Left No growth in 48 hours. Laboratory Tests Past 24 Hrs 06/06/18 06/06/18 06/06/18 08:55 10:04 11:03 WBC RBC Hgb Hct MCV MCH MCHC RDW RDW Differential Plt Count MPV Activated Clotting Time 186 H 175 H 169 H Sodium Potassium Chloride Carbon Dioxide Anion Gap BUN Creatinine Estim Creat Clear Calc Est GFR (MDRD) Af Amer Est GFR (MDRD) Non-Af BUN/Creatinine Ratio Glucose Calcium 06/07/18 06/07/18 04:40 04:40 WBC 8.8 RBC 2.78 L Hgb 8.5 L Hct 25.4 L MCV 91.4 MCH 30.6 MCHC 33.5 RDW 14.9 H RDW Differential 48.6 H Plt Count 169 MPV 9.9 Activated Clotting Time Sodium 141 Potassium 4.3 Chloride 114 H Carbon Dioxide 18.0 L Anion Gap 9 BUN 62 H Creatinine 3.23 H Estim Creat Clear Calc 19.41 Est GFR (MDRD) Af Amer 24 L Est GFR (MDRD) Non-Af 20 L BUN/Creatinine Ratio 19.2 Glucose 152 H Calcium 8.6 POC Glucose 06/07/18 06/06/18 06/06/18 07:46 21:31 18:06 POC Glucose 117 H 200 H 88 06/06/18 12:39 POC Glucose 109 Medical Necessity - Tobacco Use Smoking Status: Former smoker Tobacco Use: Non-smoker Assessment/Plan All Active Problems (Last Updated 06/06/18 @ 09:54 by Bessy Lr) Chest pain (Acute) NSTEMI (non-ST elevated myocardial infarction) (Acute 06/05/18) Impressions 1. Acute on chronic systolic congestive heart failure with CP 2. Ischemic cardiomyopathy with a 30% ejection fraction in the past 3. Coronary artery disease with history of CABG and PCI 4. AICD present 5. Chronic renal failure stage IV-follows with Dr. Tracey Royal 6. Hypertension 7. Hyperlipidemia 8. Gout 9. History of colostomy 10. Diabetes mellitus type 2 11. Increased troponin secondary to NSTEMI type II 12. Recent pneumonia 13. Abnormal stress test 14. PTCA/ALBERTO to the SVG to RCA distal to the stent 15. L groin bruit - due to PVD or to pseudoaneurysm? 16. anxiety/depression/insomnia Consult behavioral health start Buspar 5 mg TID US of the R groin Recheck the lab in the AM Essential to control the anxiety so we can control BP and prevent systolic HTN
--- NOTE | 2018-06-07 09:33 | CASEMGMT ---
LW/POA not on chart. SW let pt know, asked him to bring the forms in if able at some point in the future. Pt states understanding. YUNIER Yang
[2018-06-07 11:25] LABS: Bedside Glucose 173 mg/dL (70-110)
--- NOTE | 2018-06-07 11:43 | PCM.PN.CARD ---
Subjectve: Patient is doing much better this morning, and has had no angina or back pain since stenting of his saphenous vein graft to his RCA yesterday. Patient did have a small hematoma last night which required direct manual pressure as well as temporary FemoStop placement. This morning his right groin is clean/dry/intact without evidence of thrills, bruits or hematoma. There was some suspicion of bruit heard by Dr. Galeas so an ultrasound was performed which showed preliminarily no pseudoaneurysm. Hemoglobin and creatinine have remained about the same. The patient had baseline severe chronic renal insufficiency which actually has improved post procedure. Objective: Vital Signs Temp Pulse Resp BP Pulse Ox 97.9 F 79 20 H 136/72 H 96 06/07/18 08:00 06/07/18 10:00 06/07/18 10:00 06/07/18 10:00 06/07/18 10:00 Oxygen Flow Rate (L/min) 2 Oxygen Delivery Method Room Air Weight: 158 lb 1.143 oz Body Mass Index (BMI) 24.0 Intake and Output for Last 24 Hours 06/05/18 06/06/18 06/07/18 23:59 23:59 23:59 Intake Total 1832 / 1832 2258 / 2258 150 / 150 Output Total 825 / 825 325 / 325 Balance 1832 / 1832 1433 / 1433 -175 / -175 General: Awake, Alert, Oriented x 3 HEENT: PERRL, EOMI, Sclera Non Icteric Neck: Supple, Good ROM, No Lymph Node Enlargement Lungs: Clear to auscultation Cardiovascular: Regular Rhythm, Normal S1, Normal S2, No Murmurs, No Rubs, No Gallops Vascular: No Carotid Bruits, Normal Femoral Pulses, Normal Radial Pulses, Normal Dorsalis Pedal Pulse, Normal Posterior Tibial Pulses Abdomen: Bowel Sounds Present, Soft, Non Tender, No HSM, No Organomegaly Extremities: No Cyanosis, No Clubbing, No edema Neurological: No Focal Motor or Sensory Deficit 06/07/18 04:40: WBC 8.8, RBC 2.78 L, Hgb 8.5 L, Hct 25.4 L, MCV 91.4, MCH 30.6, MCHC 33.5, RDW 14.9 H, RDW Differential 48.6 H, Plt Count 169, MPV 9.9 06/07/18 04:40: Sodium 141, Potassium 4.3, Chloride 114 H, Carbon Dioxide 18.0 L, Anion Gap 9, BUN 62 H, Creatinine 3.23 H, Est GFR (MDRD) Af Amer 24 L, Est GFR (MDRD) Non-Af 20 L, BUN/Creatinine Ratio 19.2, Glucose 152 H, Calcium 8.6 Rhythm: EKG: Normal sinus rhythm with rare PVC, no acute changes. ECHO: Stress Test: Cardiac Cath: PCI: CT Surgery: Holter monitor: EPS: PPM: CXR: Chest CT Scan: Medical Necessity - Tobacco Use Smoking Status: Former smoker Tobacco Use: Non-smoker Assessment/Plan 1. Coronary artery disease: The patient presents with mid scapular back pain similar to his angina prior to his left main stenting in September 2017. He also has a peak troponin of 1.8 however he has stage 3.5 kidney disease, and any dye exposure may tip him over into hemodialysis. In fact, the patient is slated to undergo a AV fistula in the near future with Dr. Royal supervising. Given the patient's tenuous renal issues, I was very hesitant to bring the patient back to the [facility] and thereby move forward his hemodialysis schedule. I explained to the patient that I would like to get a noninvasive nuclear stress test to determine if he has any large beds of ischemia particularly of the left main territory or of the inferior wall where he has a patent stent of his saphenous vein graft to the RCA identified in September 2017. The patient underwent a non-walking nuclear stress test yesterday which demonstrated inferior ischemia. He underwent repeat left heart catheterization with limited coronary angiography and was found to have a critical lesion downstream from his previously placed saphenous vein graft to the RCA stent. The patient underwent successful angioplasty and drug-eluting stenting to his saphenous vein graft receiving a 3.0X 16 Promus stent, with no additional intervention. The patient also has evidence of progression of disease in the proximal portion of his saphenous vein graft to the right, but this was left for medical management. In addition the patient has evidence of a probable significant lesion in a previously placed left circumflex stent which was left for PCI electively in another day once his AV fistula has been completed. The patient will need to continue dual antiplatelet therapy for life given the age of his grafts, multiple stents, and inability to take statin based medications. We will make arrangements for the patient to undergo repeat PCI once his AV fistula has been completed. In addition his pulmonary results of his ultrasound suggest he has no pseudoaneurysm in his right groin is clean/dry/intact. He may ambulate this morning, and if his groin is stable and his blood pressure is well tolerated and he is doing well he may be discharged later on this afternoon. 2. Hyperlipidemia: Patient has a number of allergies to antilipid therapy. Unable to give statins, niacin, or other anti-goods. 3. Hypertension: Unable to take KIRTI inhibitors or arms given chronic renal insufficiency. Continue Imdur/hydralazine combination. 4. Chronic renal insufficiency: The patient's creatinine actually had improved with IV fluid both pre-and post procedure, no appreciable deterioration in renal function. I explained to the patient that her limited amount of contrast dye which was approximately 90 cc may contribute to temporary or permanent renal failure prior to his catheterization and the patient agreed to proceed. 5. Patient may be discharged home if he is ambulating well and his official read on his ultrasound shows no evidence of pseudoaneurysm. He may follow-up with Dr. Barnard going forward. Code Visit Inpatient E&M: 70072 Subs Hosp L2
[2018-06-07] MEDS: Insulin Lispro 100 UNIT/ML INSULN.PEN SQ ×2 (12:19→16:51)
[2018-06-07] MEDS: busPIRone 5 MG Tablet PO (12:20)
--- NOTE | 2018-06-07 12:51 | BH.NOTE ---
BH: Inpatient Note - Notes Behavioral Health Inpatient Note: 06/07/18 12:51 Refer to [facility] by Dr. Galeas due to anxiety which is impacting BP. Spoke with patient and his . Alert and oriented. Cooperative. Pt reports long standing PTSD and Anxiety which has been managed by his psychiatrist at the [facility] Dr. Brenner?. Reports recent medication changes. When talking about his anxiety he states its not real bad. Able to identify getting worked up easily over small things daily. reports that if something goes wrong he gets upset. reports increased anxiety and worry recently due to medical issues. Pt reports that this admission has helped clarify things. Increased anxiety in the hospital setting according to patient which has made his BP erratic stating its worse here. Denies depressive symptoms. PTSD is reported to be under control. Keeps busy with his [address], [employer], or on the computer. is supportive. Was linked with counselor at the [facility] however little benefit. Encouraged him to seek counseling to increase coping skills for anxiety and anger which may impact BP. Gave referrals to providers in his area.
[2018-06-07 16:20] LABS: Bedside Glucose 169 mg/dL (70-110)
--- NOTE | 2018-06-07 17:59 | DCINST_ITS ---
You will use the following diet at home:: Calorie/Carbohydrate Controlled (specify 1200, 1400, etc), Cardiac Your food should be the consistency of: Regular Your liquids should be the consistency of: Regular/Thin Discharge Activity: May Shower May resume sexual activity in: 10-14 days Weight Bearing Status: Full weight bearing Lifting Restrictions: No more than 10 pounds Call your doctor if your incision/area has: Continuous Slow Oozing, Sudden Increased Bleeding, Increased Pain/ Swelling, Increased Redness, Foul Smelling Discharge, Swelling at the incision site, - - rapidly enlarging hematoma of the groin....if this happens apply pressure and call 911 Call your doctor if you observe: Fever of 101 or Higher, Shortness of breath, Dizziness, Fainting spells, Swelling in the ankles, Chest pain, Calf discomfort, Uncontrolled pain Allergies/Adverse Reactions: Allergies atorvastatin calcium [From Lipitor] Allergy (Verified 06/02/18 12:01) Pain in joints verapamil [From Covera-HS] Allergy (Verified 06/02/18 12:01) passes out lisinopril Adverse Reaction (Verified 06/02/18 12:01) Other muscle pain Niacin Preparations Adverse Reaction (Verified 06/02/18 12:01) Pain in joints Cholesterol Meds Adverse Reaction (Uncoded 06/02/18 15:13) Pain in joints Medications to take at Discharge Insulin Glargine,Hum.rec.anlog [Lantus] 14 unit SQ BREAKFAST 08/20/15 Clopidogrel Bisulfate [Plavix] 75 mg PO DAILY #0 12/04/15 Carvedilol [Coreg (Beta Pedro)] 25 mg PO BID #90 tab 09/08/17 Aspirin E.C. [Ecotrin] 81 mg PO DAILY 11/07/17 Slow Release Iron 45 mg PO DAILY 11/07/17 Venlafaxine HCl [Venlafaxine HCl ER] 150 mg PO DAILY 11/07/17 hydrALAZINE [Apresoline] 50 mg PO BID 11/07/17 allopurinol 100 mg tablet 100 mg PO DAILY tab 11/21/17 diltiazem CD 120 mg capsule,extended release 24 hr 120 mg PO DAILY 11/21/17 pantoprazole 40 mg tablet,delayed release 40 mg PO BIDAC 11/21/17 isosorbide mononitrate ER 30 mg tablet,extended release 24 hr 30 mg PO DAILY 11/27/17 calcitriol 0.25 mcg capsule 0.25 mcg PO DAILY cap 04/20/18 trazodone 50 mg tablet 50 mg PO QHS 04/20/18 Sucralfate [Carafate] 1 gm PO BIDCM 06/02/18 Nitroglycerin [Nitrostat] 0.4 mg SUBLINGUAL Q5M PRN #1 bottle 06/07/18 levoFLOXacin tablet [Levaquin tablet] 500 mg PO Q48@0600 #1 tablet 06/07/18 The following prescriptions were given: levoFLOXacin tablet [Levaquin tablet] 500 mg PO Q48@0600 #1 tablet Nitroglycerin [Nitrostat] 0.4 mg SUBLINGUAL Q5M PRN #1 bottle PRN Reason: Cardiac/Chest Pain Orders to be completed after discharge: Phase II, Outpatient Cardiac Rehab Location: None Selected Primary Care Physician: Prasad Concepcion III, MD [Primary Care Provider] - Please follow up with your Primary Care Physician in: 3-5 days Test Results: Test results from this visit will be discussed in further detail at your follow- up appointment, if applicable. Please Follow Up With: Ángel Atkinson When: 06/20/2018 at 10 AM in the [facility] office Proposed Discharge Date: 06/07/18
--- NOTE | 2018-06-07 18:01 | DS.PCM_ITS ---
Discharge Date and Diagnosis Date of Admission: 06/02/18 Date of Discharge: 06/07/18 - Primary Discharge Diagnosis Active and Suspected Problems (Last Updated 06/06/18 @ 09:54 by Bessy Lr) Community acquired pneumonia (Acute) - on tx at admission NSTEMI - type I Acute on chronic systolic CHF Abnormal stress test S/P PTCA/ALBERTO to the SVG to the RCA on 06/06/[address] Barnard - Secondary Discharge Diagnosis Chronic Problems (Last Updated 06/07/18 @ 17:57 by Livan Galeas DO) Acute on chronic systolic (congestive) heart failure (Chronic) Anemia in chronic kidney disease (CKD) (Chronic) Stented coronary artery (Chronic 06/06/18) Mildly elevated troponin: cutting balloon angioplasty ([place] Cut[place] Balloon 3.0 X 10 mm) and ALBERTO (Synergy 4.0 X 8 mm) placed from proximal to mid left main per Dr. Bustos, [facility] 11/08/2017 Triple vessel CAD of the LAD, RCA, LCX Critical lesion in SVG to RCA distal to previous stent Successful PTCA/ALBERTO distal SVG to RCA with filter wire assistance with a 3.0 x 16 Promus Synergy, post dilated with a 3.0 x 8 NC Balloon; 85%-->0%, no dissection or distal embolization. No additional PCI of nikolski RCA or LCX ISR done today due to CRI. 06/06/[address] Barnard @ [facility] History of right and left heart catheterization (Chronic 11/08/17) Per Dr. 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 Buitrago @ [facility] History of left heart catheterization (Chronic 09/06/17) Atherosclerotic heart disease of nikolski coronary artery with other forms of angina pectoris (Chronic) CHARLES to LAD, SVG to RCA and SVG to CX per Dr. Buitrago @ [facility] 09/27/06. Mildly elevated troponin: cutting balloon angioplasty ([place] Cutting Balloon 3.0 X 10 mm) and ALBERTO (Synergy 4.0 X 8 mm) placed from proximal to mid left main per Dr. 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 06/02/18 14:10 Blood Culture (Wb) - Anticubital Left Blood Culture - Final No growth in 5 days. [facility] Operations: None Procedures: Cardiac catheterization - with PTCA/ALBERTO to the SVG to the RCA distal to the previous stent on 06/[address] Barnard, Stress test Summary of Care Provided: The patient is a 73 year old M with a PMH of CAD, CABG, PTCA, depression, ischemic CM with a 25% EF, CRF IV, HTN, HLD, DM II and colostomy who presented to the ED at [facility] c/o pain in the back between the scapula's. The pain was intermittent and sometimes associated with SOB. He was on antibiotics at the time of admission for tx of a recently diagnosed PNA. CXR in the ED showed possible infiltrate in the R base. Troponin was increased at 0.162. EKG showed no acute changes. He was admitted to a monitored bed on PCU and serial CE's were ordered. The teoponin peaked at 1.[address] Teague was consulted. He felt the pt had NSTEMI type II due to increased oxygen demand associated with PNA. He recommended a stress test prior to DC. Stress test was done on 06/06 and it was abnormal. He was taken for cardiac catheterization nd found to have an 85% occlusion of the SVG to the RCA distal to the previous stent. He underwent PTCA/ALBERTO to the occluded area and the post procedure stenosis was 0%. He was transferred to the CC unit for recovery. He had a hematoma develop in the R groin and manual pressure was applied and also a FemoStop for a period. The following morning there was bruising but no hematoma. There was no bruit over the puncture site but he did have a bruit that was auscultated 3 inches distal to the puncture site in the R upper thigh. A vascular study showed no pseudoaneurysm or fistula. Creat was stable at 3.23 post cath. While in the hospital his BP was quite labile and at times increased. He is very anxious and is on chronic medication for anxiety/depression. He has seen a psychotherapist [facility] the [facility] in the past but did not find it helpful........they kept repeating the same things. consult was placed for and he was seen by Luke Edmonds and given resources to contact for counselling. He was discharged home and will follow up with Ángel Atkinson in the [facility] office on 06/20/18. He will follow up with Dr. Prasad Concepcion in 3-5 days. He will follow up with Dr. Royal as previously arranged. He was discharged on Plavix and ASA which he will need for at least a year. He will continue Coreg, Nitrates, statins. no SONU or ARB prescribed due to progressive RF. He was given a a RX for SL NTG and instructions on proper use. - Physical Exam General: Alert, Oriented x3, Cooperative, No apparent distress Oral: Moist Mucosa Neck: No JVD, Trachea Midline Lungs: Clear to auscultation, Diminished Cardiovascular: Regular rate, Regular Rhythm, Normal S1, Normal S2, No Gallop Abdomen: Bowel Sounds Present, Soft, Non Tender, Non-Distended Extremities: No clubbing, No cyanosis, No edema Neurological: Cranial nerves II-XII grossly intact, Neuro grossly intact Psych/Mental Status: Anxious Vital Signs Temp Pulse Resp BP Pulse Ox 97.7 F L 82 16 163/84 H 96 06/07/18 12:00 06/07/18 17:00 06/07/18 17:00 06/07/18 17:00 06/07/18 17:00 Oxygen Flow Rate (L/min) 2 Oxygen Delivery Method Room Air Weight: 158 lb 1.143 oz Body Mass Index (BMI) 24.0 Intake and Output for Last 24 Hours 06/05/18 06/06/18 06/07/18 23:59 23:59 23:59 Intake Total 1831 2258 / 2258 450 / 450 Output Total 825 / 825 625 / 625 Balance 1831 1433 / 1433 -175 / -175 Microbiology Past 72 Hours 06/02/18 14:20 Blood Culture - Final Blood Culture (Wb) - Left Wrist No growth in 5 days. 06/02/18 14:10 Blood Culture - Final Blood Culture (Wb) - Anticubital Left No growth in 5 days. Laboratory Tests Past 24 Hrs 06/07/18 06/07/18 04:40 04:40 WBC 8.8 RBC 2.78 L Hgb 8.5 L Hct 25.4 L MCV 91.4 MCH 30.6 MCHC 33.5 RDW 14.9 H RDW Differential 48.6 H Plt Count 169 MPV 9.9 Sodium 141 Potassium 4.3 Chloride 114 H Carbon Dioxide 18.0 L Anion Gap 9 BUN 62 H Creatinine 3.23 H Estim Creat Clear Calc 19.41 Est GFR (MDRD) Af Amer 24 L Est GFR (MDRD) Non-Af 20 L BUN/Creatinine Ratio 19.2 Glucose 152 H Calcium 8.6 POC Glucose 06/07/18 06/07/18 06/07/18 16:16 11:21 07:46 POC Glucose 169 H 173 H 117 H 06/06/18 06/06/18 21:31 18:06 POC Glucose 200 H 88 Discharge Activity: May Shower May resume sexual activity in: 10-14 days Weight Bearing Status: Full weight bearing Call your doctor if your incision/area has: Continuous Slow Oozing, Sudden Increased Bleeding, Increased Pain/ Swelling, Increased Redness, Foul Smelling Discharge, Swelling at the incision site, - - rapidly enlarging hematoma of the groin....if this happens apply pressure and call 911 Call your doctor if you observe: Fever of 101 or Higher, Shortness of breath, Dizziness, Fainting spells, Swelling in the ankles, Chest pain, Calf discomfort, Uncontrolled pain Home Medications: Medications to take at Discharge Insulin Glargine,Hum.rec.anlog [Lantus] 14 unit SQ BREAKFAST 08/20/15 Clopidogrel Bisulfate [Plavix] 75 mg PO DAILY #0 12/04/15 Carvedilol [Coreg (Beta Pedro)] 25 mg PO BID #90 tab 09/08/17 Aspirin E.C. [Ecotrin] 81 mg PO DAILY 11/07/17 Slow Release Iron 45 mg PO DAILY 11/07/17 Venlafaxine HCl [Venlafaxine HCl ER] 150 mg PO DAILY 11/07/17 hydrALAZINE [Apresoline] 50 mg PO BID 11/07/17 allopurinol 100 mg tablet 100 mg PO DAILY tab 11/21/17 diltiazem CD 120 mg capsule,extended release 24 hr 120 mg PO DAILY 11/21/17 pantoprazole 40 mg tablet,delayed release 40 mg PO BIDAC 11/21/17 isosorbide mononitrate ER 30 mg tablet,extended release 24 hr 30 mg PO DAILY 11/27/17 calcitriol 0.25 mcg capsule 0.25 mcg PO DAILY cap 04/20/18 trazodone 50 mg tablet 50 mg PO QHS 04/20/18 Sucralfate [Carafate] 1 gm PO BIDCM 06/02/18 Nitroglycerin [Nitrostat] 0.4 mg SUBLINGUAL Q5M PRN #1 bottle 06/07/18 levoFLOXacin tablet [Levaquin tablet] 500 mg PO Q48@0600 #1 tablet 06/07/18 Following Prescrptions Were Given to Patient: levoFLOXacin tablet [Levaquin tablet] 500 mg PO Q48@0600 #1 tablet Nitroglycerin [Nitrostat] 0.4 mg SUBLINGUAL Q5M PRN #1 bottle PRN Reason: Cardiac/Chest Pain Other Amb Orders: Phase II, Outpatient Cardiac Rehab Location: None Selected Primary Care Physician: Prasad Concepcion III, MD [Primary Care Provider] - Please follow up with your Primary Care Physician in: 3-5 days Please Follow Up With: Ángel Atkinson When: 06/20/2018 at 10 AM in the [facility] office Disposition: Home Minutes spent on discharge:: 40 Patient Condition:: Good Medical Necessity - Tobacco Use Smoking Status: Former smoker Tobacco Use: Non-smoker Meaningful Use Info Meaningful Use Diagnoses (Choose all that apply): AMI - AMI Aspirin given w/in 24hrs of arrival?: Yes ASA at discharge?: Yes Statins at discharge?: Yes Sonu/ARB at discharge?: No Reason Sonu/ARB not ordered:: Worsening renal function Beta Pedro at discharge?: Yes Done w/ Acute OR measure.: Yes Code Visit Inpatient E&M: 72199 Disch Hosp
--- NOTE | 2018-06-08 14:26 | CASEMGMT ---
Addendum entered by Gen Cormier 06/08/18 15:07: Pt returned call to [employer]. States except for feeling tired, he is well. LEE BEASLEY discussed spacing activity to allow times for resting. Pt states no other symptoms. No questions re: prescriptions and f/u appt with cardiology is made. No care improvement suggestions were given. LEE BEASLEY thanked pt for using [facility]. Familia MARSH Original Note: LEE BEASLEY DC PHONE CALL DC DATE: 06/07/18 DC Disposition: Home LACE/STRATA: 01/16 Attempted call to home phone. no answer. Familia MARSH
== END 2018-06-07 18:26 | disposition home or self-care (01) | DRG 246 ==
LOC: ED 12:42 → MS3 14:40 → PCU 19:44 → MS3 06-04 11:51 → ICU 06-06 10:03
PROVIDERS: Hospitalist; Internal Medicine Cardiovascular Disease; Admitting Provider Internal Medicine; Emergency Provider Emergency Medicine; Family Provider Family Medicine; PCP Family Medicine; Visit Provider Internal Medicine
DX: I21.A1 Myocardial infarction type 2 (principal); J18.9 Pneumonia, unspecified organism; I50.23 Acute on chronic systolic (congestive) heart failure; I13.0 Hypertensive heart and chronic kidney disease with heart failure and stage 1 through stage 4 chronic kidney disease, or unspecified chronic kidney disease; N18.4 Chronic kidney disease, stage 4 (severe); D63.1 Anemia in chronic kidney disease; E11.22 Type 2 diabetes mellitus with diabetic chronic kidney disease; I25.5 Ischemic cardiomyopathy; E78.5 Hyperlipidemia, unspecified; M10.9 Gout, unspecified; I25.110 Atherosclerotic heart disease of native coronary artery with unstable angina pectoris; I25.710 Atherosclerosis of autologous vein coronary artery bypass graft(s) with unstable angina pectoris; Z95.1 Presence of aortocoronary bypass graft; Z95.5 Presence of coronary angioplasty implant and graft; Z86.711 Personal history of pulmonary embolism; Z95.810 Presence of automatic (implantable) cardiac defibrillator; Z79.4 Long term (current) use of insulin; Z87.891 Personal history of nicotine dependence
CPT/HCPCS: 36415; 71045; 78452; 80048; 80069; 81001; 82962; 84484; 85025; 85027; 85347; 85379; 85610; 85730; 87040; 92937; 93005; 93017; 93455; 93926; 99152; 99153; 99285; A9500; J7030; J7050; A4216; C1725; C1769; C1874; C1884; C1887; C1894; C9604; J2405; J2785; Q9967

== ENCOUNTER → 2018-06-20 10:30 | Outpatient (CLI) | payer MEDICARE, SELFPAY ==
[2018-06-20 09:59] VITALS: BMI 25.3
[2018-06-20 11:09] LABS: Absolute Lymphocyte Count 0.57 X10^3/ul (0.83-4.51); Absolute Neutrophil Count 6.4 X10^3/uL (2.0-7.7); Basophil# 0.02 X10^3/uL; Basophil% 0.2 % (0-1); Eosinophil# 0.28 X10^3/uL; Eosinophils% 3.3 % (0-5); Hematocrit 32.7 % (40-54); Hemoglobin 10.3 g/dl (13.0-16.5); Lymphocyte # 0.57 X10^3/ul (4.0); Lymphocyte % 6.8 % (19-41); Mean Corp Hgb Conc 31.5 g/gl (32-36); Mean Corpuscular Hgb 29.4 pg (27.0-32.0); Mean Corpuscular Volume 93.4 fL (80-94); Mean Platelet Vol. 10.4 fl (6.2-12.0); Monocyte# 1.13 X10^3/uL; Monocyte% 13.5 % (0-10); Neutrophil # 6.36 X10^3/uL (2.7-7.7); Neutrophil % 75.8 % (47-70); Platelet Count 201 K/mm3 (150-450); RBC Distribution Width SD 54.9 fl (35.1-43.9); White Blood Count 8.4 K/mm3 (4.4-11.0)
[2018-06-20 11:10] LABS: Differential Indicated SCAN CRITERIA MET; POSITIVE COUNT NO; POSITIVE DIFFERENTIAL YES; POSITIVE MORPHOLOGY NO
[2018-06-20 11:39] LABS: Anion Gap 9 (5-15); BUN 77 mg/dL (7-18); BUN/Creat Ratio 19.2 RATIO (10-20); Calcium,Total 8.9 mg/dL (8.5-10.1); Chloride 109 mmol/L (98-107); Creatinine, Serum 4.02 mg/dL (0.70-1.30); EST Glomerular Filtration Rate 16 mL/min (>60); Est Glom Filt Rate - Afr Amer 19 mL/min (>60); Glucose 51 mg/dL (74-106); Magnesium 2.7 mg/dL (1.6-2.6); Potassium 4.6 mmol/L (3.5-5.1); Sodium Level 139 mmol/L (136-145); T4 Free Direct 1.26 ng/dL (0.76-1.46); Thyroid Stim Hormone (TSH) 2.49 uIU/mL (0.358-3.74)
[2018-06-20 11:41] LABS: Platelet Estimate ADEQUATE (ADEQ); Red Cell Morphology NORM C+C NORMAL (NORM C&C)
== END ==
PROVIDERS: Family Provider Family Medicine; PCP Family Medicine; Referring Provider Nurse Practitioner Family; Visit Provider Nurse Practitioner Family
DX: I25.10 Atherosclerotic heart disease of native coronary artery without angina pectoris (principal); I25.5 Ischemic cardiomyopathy; R53.83 Other fatigue; Z98.61 Coronary angioplasty status; J18.9 Pneumonia, unspecified organism
CPT/HCPCS: 36415; 80048; 83735; 84439; 84443; 85025

== ENCOUNTER 2018-06-21 06:43 | Inpatient (IN) | payer OTHER, MEDICARE, SELFPAY ==
[2018-06-20 09:59] VITALS: BMI 25.3
[2018-06-21] VITALS (29 sets, daily range): BP systolic 117–156; BP diastolic 43–112; PULSE 60–84; RESP 14–24; TEMP 36.1–36.9; O2SAT 92–100; BMI 25.2; BMI 24.4
--- NOTE | 2018-06-21 06:53 | EKG12_ITS ---
Test Reason : CP Blood Pressure : / mmHG Vent. Rate : 064 BPM Atrial Rate : 064 BPM P-R Int : 186 ms QRS Dur : 184 ms QT Int : 516 ms P-R-T Axes : 013 065 209 degrees QTc Int : 532 ms Normal sinus rhythm Left bundle branch block Abnormal ECG Confirmed by LORRI SANFORD ([id number]), brands editor YINKA CHRISTOPHER ([id number]) on 06/25/2018 2:15:43 PM Referred By: Ángel Atkinson Confirmed By:LORRI SANFORD
--- NOTE | 2018-06-21 06:53 | CT_ITS ---
We are attempting to reach an attending provider to discuss findings. An addendum with communication details will be sent when the communication is complete. STUDY: CT BRAIN WITHOUT CONTRAST REASON FOR EXAM: Male, 73 years old. Altered mental status, found on floor, slurred speech, low blood sugar. Hx hypertension, diabetes. RADIATION DOSAGE (If Supplied By Facility): CTDIvol = ( 44.99 ) mGy, DLP = ( 796.11 ) mGycm TECHNIQUE: Transaxial CT imaging of the brain was performed without administration of intravenous contrast material. Individualized dose optimization techniques were used for this CT. COMPARISON: No relevant priors. FINDINGS: Normal soft tissue structures. Normal calvarium. Normal size ventricles and extra-axial spaces for the patient's age. There are areas of decreased attenuation within the white matter tracts of the supratentorial brain, consistent with microvascular disease changes. Normal basal ganglia and thalami. Normal brainstem. Normal cerebellum. There is no intracranial hemorrhage. There are no findings of an acute ischemic infarction. Normal visualized paranasal sinuses. CT/Brain/Head without Contrast IMPRESSION: Chronic involutional changes of the brain. Electronically Signed: Iris Flores, at 7:14 EDT Tel , Service support ,
[2018-06-21 06:56] LABS: Bedside Glucose 84 mg/dL (70-110)
[2018-06-21 07:03] LABS: Absolute Lymphocyte Count 1.05 X10^3/ul (0.83-4.51); Absolute Neutrophil Count 7.3 X10^3/uL (2.0-7.7); Basophil# 0.01 X10^3/uL; Basophil% 0.1 % (0-1); Eosinophil# 0.17 X10^3/uL; Eosinophils% 1.9 % (0-5); Hematocrit 30.6 % (40-54); Hemoglobin 10.3 g/dl (13.0-16.5); Lymphocyte # 1.05 X10^3/ul (4.0); Lymphocyte % 11.8 % (19-41); Mean Corp Hgb Conc 33.7 g/gl (32-36); Mean Corpuscular Hgb 30.8 pg (27.0-32.0); Mean Corpuscular Volume 91.6 fL (80-94); Mean Platelet Vol. 10.5 fl (6.2-12.0); Monocyte# 0.37 X10^3/uL; Monocyte% 4.2 % (0-10); Neutrophil # 7.26 X10^3/uL (2.7-7.7); Neutrophil % 81.9 % (47-70); Platelet Count 209 K/mm3 (150-450); RBC Distribution Width CV 17.2 % (11.6-14.6); RBC Distribution Width SD 56.1 fl (35.1-43.9); Red Blood Count 3.34 M/mm3 (4.6-6.2); White Blood Count 8.9 K/mm3 (4.4-11.0)
--- NOTE | 2018-06-21 07:03 | RAD_ITS ---
STUDY: X-RAY CHEST REASON FOR EXAM: Male, 73 years old. Trauma. Chest pain. TECHNIQUE: Single AP portable view of the chest. COMPARISON: None. FINDINGS: There is an AICD on the left side. Ill-defined airspace opacities are seen bilaterally suggesting compressive atelectasis in the lung bases. Small bilateral pleural effusions are noted. Normal size heart. Normal mediastinum and giovanni. Normal visualized pulmonary arteries. Normal visualized aortic arch and descending thoracic aorta. There is a dextroscoliosis of the thoracic spine. There is degenerative osteoarthritis of the bilateral shoulders. There is no demonstrated abnormality of the visualized soft tissue structures of the upper abdomen. RAD/Chest 1 View IMPRESSION: Small bilateral pleural effusions. Electronically Signed: Iris Flores, at 7:44 EDT Tel , Service support ,
[2018-06-21 07:06] LABS: POSITIVE COUNT NO; POSITIVE DIFFERENTIAL NO; POSITIVE MORPHOLOGY NO
[2018-06-21 07:09] LABS: International Normalized Ratio 1.4
--- NOTE | 2018-06-21 07:12 | ED.VISSUMM ---
- ER Visit Summary Date of Service: 06/21/18 Chief Complaint: Altered mental status History of Present Illness: The patient is a 73 M presents via EMS for altered mental status. Patient's found him on the floor and called 911. EMS noted patient's blood sugar was 31. They gave him oral glucose and it increased to 107. Patient was noted to be hypoxic and was placed on nasal cannula, with oxygen saturation of 88%. Patient is currently not complaining of anything specific. Chart review shows he had a cardiology visit yesterday and was complaining of fatigue at that time. He was also feeling somewhat short of breath. Patient has history of coronary artery disease, ICD, ischemic cardiomyopathy, diabetes, chronic kidney disease, hypertension, hyperlipidemia, and multiple cardiac stents and CABG. Most recent was June 06, 2018. Physical Examination: Vital signs: afebrile, hemodynamically stable, 92% on nasal cannula General: well nourished, well developed, in no distress Skin: warm, dry, no rash, pale, no conjunctiva pallor HEENT: normocephalic and atraumatic; PERRL, EOMI, moist mucous membranes Cardiovascular: regular rate and rhythm, 3+ symmetric pitting peripheral edema, 2+ pulses all distal extremities Respiratory: No increased work of breathing Abdominal: Abdomen is soft, nontender with normoactive bowel sounds, no guarding or rebound, no masses MSK: Moves all extremities, no deformities, normal strength Neuro: Awake and alert, oriented ?4. Speech is slurred, no facial droop, visual field deficit, sensation and motor function intact and symmetric, poor coordination with aqkkvy-gu-tvjt and tiie-ff-icqj bilaterally, no aphasia, NIH equals 3 for speech and coordination. Test Results: [] Emergency Department Course and Treatment: Patient's blood sugar was checked immediately upon arrival and was 84. Patient does have noted slurred speech despite normal blood sugar, and he has noted ataxia with imhmfx-kb-orqh and msdp-pm-gttf. Because of this a stroke alert was called. Head CT showed no intracranial hemorrhage. On reevaluation after returning from head CT, patient had improvement of his speech, now almost no slurring noted. He still has some difficulty with bkxmye-it-imih but not as pronounced as initial presentation. Patient's differential of his altered mental status includes metabolic, including prolonged effects of hypoglycemia, cardiac, neurologic, infectious, hypoxemic, among other things. Comprehensive work-up performed. Patient was signed out to the morning physician for further work-up, follow-up of results, and final disposition of the patient. Treatment Plan: [] Disposition: [] Impression: hypoglycemia with altered mental status This note was generated with [employer] dictation software. It may contain incorrect words, spelling, and punctuation that were not noted in review of the chart prior to signing ED Disposition - Plan for ED Patient: Referrals: Prasad Concepcion III, MD [Primary Care Provider] -
[2018-06-21 07:16] LABS: Anion Gap 11 (5-15); BUN 82 mg/dL (7-18); BUN/Creat Ratio 18.5 RATIO (10-20); Calcium,Total 8.7 mg/dL (8.5-10.1); Chloride 106 mmol/L (98-107); Creatinine, Serum 4.43 mg/dL (0.70-1.30); EST Glomerular Filtration Rate 14 mL/min (>60); Est Glom Filt Rate - Afr Amer 17 mL/min (>60); Estimated Creatinine Clearance 13.68 ml/min; Glucose 113 mg/dL (74-106); Potassium 4.8 mmol/L (3.5-5.1); Sodium Level 139 mmol/L (136-145)
--- NOTE | 2018-06-21 07:20 | ED.DCSUM_ITS ---
- ER Visit Summary Date of Service: 06/21/18 Chief Complaint: Altered mental status History of Present Illness: The patient is a 73 M presents via EMS for altered mental status. Patient's found him on the floor and called 911. EMS noted patient's blood sugar was 31. They gave him oral glucose and it increased to 107. Patient was noted to be hypoxic and was placed on nasal cannula, with oxygen saturation of 88%. Patient is currently not complaining of anything specific. Chart review shows he had a cardiology visit yesterday and was complaining of fatigue at that time. He was also feeling somewhat short of breath. Patient has history of coronary artery disease, ICD, ischemic cardiomyopathy, diabetes, chronic kidney disease, hypertension, hyperlipidemia, and multiple cardiac stents and CABG. Most recent was June 06, 2018. Physical Examination: Vital signs: afebrile, hemodynamically stable, 92% on nasal cannula General: well nourished, well developed, in no distress Skin: warm, dry, no rash, pale, no conjunctiva pallor HEENT: normocephalic and atraumatic; PERRL, EOMI, moist mucous membranes Cardiovascular: regular rate and rhythm, 3+ symmetric pitting peripheral edema, 2+ pulses all distal extremities Respiratory: No increased work of breathing Abdominal: Abdomen is soft, nontender with normoactive bowel sounds, no guarding or rebound, no masses MSK: Moves all extremities, no deformities, normal strength Neuro: Awake and alert, oriented ?4. Speech is slurred, no facial droop, visual field deficit, sensation and motor function intact and symmetric, poor coordination with kxgkbg-fz-dhnw and hyfv-og-jjdu bilaterally, no aphasia, NIH equals 3 for speech and coordination. Test Results: [] Emergency Department Course and Treatment: Patient's blood sugar was checked immediately upon arrival and was 84. Patient does have noted slurred speech despite normal blood sugar, and he has noted ataxia with crprry-ua-dflk and ruvi-ga-jsku. Because of this a stroke alert was called. Head CT showed no intracranial hemorrhage. On reevaluation after returning from head CT, patient had improvement of his speech, now almost no slurring noted. He still has some difficulty with dcimbs-qb-xtaj but not as pronounced as initial presentation. Patient's differential of his altered mental status includes metabolic, including prolonged effects of hypoglycemia, cardiac, neurologic, infectious, hypoxemic, among other things. Comprehensive work-up performed. Patient was signed out to the morning physician for further work-up, follow-up of results, and final disposition of the patient. Treatment Plan: [] Disposition: [] Impression: hypoglycemia with altered mental status This note was generated with [employer] dictation software. It may contain incorrect words, spelling, and punctuation that were not noted in review of the chart prior to signing ED Disposition - Plan for ED Patient: Referrals: Prasad Concepcion III, MD [Primary Care Provider] -
--- NOTE | 2018-06-21 07:20 | ED.RN ---
SPOKE TO THE PT'S AND EXPRESSED TO HER THAT HE WOULD LIKE HER TO BE AT THE BEDSIDE.PT'S STATED SHE HAD TO GET HER SON OFF TO WORK AND THEN SHE WOULD BE UP.ASKED HER TO BRING HIS MED LIST WITH HER AND SHE STATED SHE WOULD.
[2018-06-21] MEDS: Dext 5%-0.45% NS 1,000 ML 125 ML IV (07:27)
[2018-06-21 07:58] LABS: Alcohol, Blood (Medical)-Serum < 3.0 mg/dL
[2018-06-21 07:59] LABS: Lactic Acid 1.6 mmol/L (0.4-2.0)
[2018-06-21 08:01] LABS: Ammonia < 10.0 umol/L (11-32)
[2018-06-21 08:08] LABS: CPK Total, Creatine Kinase 2618 U/L (39-308)
--- NOTE | 2018-06-21 08:16 | ED.VISSUMM ---
- ER Visit Summary Date of Service: 06/21/18 Patient was checked out to me by nighttime physician for check of labs and final disposition. In brief patient was found on the floor was found to be hypoglycemic. He received glucose blood sugar improved. Mental status has been slow to improve. Patient with recent coronary artery stenting approximately 2 weeks ago. He reports that he is a diabetic. He states he just has not been feeling very good and has not been eating well. He did not take his insulin yesterday and he did not take his blood sugar. notes that he had some slurred speech yesterday. They went and saw nephrology and cardiology. It was thought that perhaps his decreased p.o. was due to worsening kidney function. Test Results: White count is normal at 8.9. BUN of 82 creatinine of 4.43 (significantly worsened from baseline) troponin slightly elevated 0.123. Lactic acid 1.6. Total body CK 2618. Chest x-ray showed small pleural effusions. CT brain was negative for hemorrhage. EKG showed a sinus rhythm with left bundle branch block and a rate of 64. Emergency Department Course and Treatment: Patient was placed on D5 half-normal saline. He also received normal saline bolus. Patient has evidence of rhabdomyolysis and acute kidney injury. He also has hypoglycemia due to not eating. He has evidence of CHF with 3+ lower extremity edema. He does continue to have slurred speech. This could be a function of a stroke versus prolonged hypoglycemia. Patient will need admitted. Dr Ackerman will be admitting. Impression: 1. Diabetic hypoglycemia 2. Acute rhabdomyolysis 3. Acute kidney disease 4. Dysarthria 5. Congestive heart failure 6. Critical care time 35 minutes This note was generated with [employer] dictation software. It may contain incorrect words, spelling, and punctuation that were not noted in review of the chart prior to signing ED Disposition - Plan for ED Patient: Referrals: Prasad Concepcion III, MD [Primary Care Provider] -
[2018-06-21] MEDS: 0.9% Normal Saline 1,000 ML 999 ML IV (08:17)
[2018-06-21 08:22] LABS: BNP,B-Type NATRIURETIC PEPTIDE > 5000.0 pg/mL (0-100)
[2018-06-21 08:26] LABS: Bedside Glucose 111 mg/dL (70-110)
[2018-06-21 08:35] LABS: AST(SGOT) 121 U/L (15-37); Alanine Aminotransfer ALT/SGPT 67 U/L (16-61); Albumin, Serum 3.4 g/dL (3.2-5.0); Alkaline Phosphatase 124 U/L (45-117); Globulin 3.1 g/dL (2.2-4.2); Protein, Total 6.5 g/dL (6.4-8.2)
--- NOTE | 2018-06-21 08:50 | PCM.HP.STD ---
Problem List (1) Acute on chronic systolic (congestive) heart failure Status: Acute (2) Anemia in chronic kidney disease (CKD) Status: Chronic (3) Stented coronary artery Status: Chronic Comment: Mildly elevated troponin: cutting balloon angioplasty ([place] Cutting Balloon 3.0 X 10 mm) and ALBERTO (Synergy 4.0 X 8 mm) placed from proximal to mid left main per Dr. Bustos, [facility] 11/08/2017 Triple vessel CAD of the LAD, RCA, LCX Critical lesion in SVG to RCA distal to previous stent Successful PTCA/ALBERTO distal SVG to RCA with filter wire assistance with a 3.0 x 16 Promus Synergy, post dilated with a 3.0 x 8 [place] Balloon; 85%-->0%, no dissection or distal embolization. No additional PCI of [place] RCA or LCX ISR done today due to CRI. 06/06/[address] Barnard @ [facility] (4) History of right and left heart catheterization Status: Chronic Comment: Per Dr. Bustos, [facility]>followed by cutting ballon angioplasty and ALBERTO to left main (5) Chest pain Status: Resolved Qualifiers: Chest pain type: unspecified Qualified Code(s): R07.9 - Chest pain, unspecified (6) NSTEMI (non-ST elevated myocardial infarction) Status: Resolved (7) CAD (coronary artery disease) Status: Chronic Qualifiers: Coronary Disease-Associated Artery/Lesion type: [place] artery [place] vs. transplanted heart: [place] heart Associated angina: without angina Qualified Code(s): I25.10 - Atherosclerotic heart disease of [place] coronary artery without angina pectoris (8) S/P PTCA (percutaneous transluminal coronary angioplasty) Status: Chronic (9) Implantable cardioverter-defibrillator (ICD) in situ Status: Chronic (10) Ischemic cardiomyopathy Status: Chronic (11) History of coronary artery bypass graft x 3 Status: Chronic Comment: CHARLES to LAD, SVG to RCA and SVG to CX per Dr. Buitrago @ [facility] (12) History of left heart catheterization Status: Chronic (13) Atherosclerotic heart disease of [place] coronary artery with other forms of angina pectoris Status: Chronic Comment: CHARLES to LAD, SVG to RCA and SVG to CX per Dr. Buitrago @ [facility] 09/27/06. Mildly elevated troponin: cutting balloon angioplasty ([place] Cutting Balloon 3.0 X 10 mm) and ALBERTO (Synergy 4.0 X 8 mm) placed from proximal to mid left main per Dr. 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 (15) CKD (chronic kidney disease), stage IV Status: Chronic (16) History of pulmonary embolism Status: Chronic Comment: Provoked (17) History of hypertension Status: Chronic (18) History of hyperlipidemia Status: Chronic (19) History of gout Status: Chronic (20) Agent orange exposure Status: Chronic (21) History of colostomy Status: Chronic (22) Acute encephalopathy Status: Acute (23) Hypoglycemia Status: Acute History of Present Illness Date of Admission: 06/21/18 Chief Complaint: Altered mental status The patient is a 73 year old M with multiple comorbidities including CKD stage V, diabetes mellitus type 2, coronary artery disease with previous CABG and subsequent PCI with ischemic cardiomyopathy with known ejection fraction of 25% was brought to the emergency department by the with decreased level of 7 serial and patient slurring his speech. Per patient's patient had apparently refused to eat over the past couple of days. On the day of her presentation patient's felt patient was having a stroke the EMS squad was called who upon arrival found patient blood glucose to be in the 30s. Treatment was initiated on the field and patient brought to the emergency department. In the ED patient underwent subsequent evaluation with imaging studies which failed to demonstrate any acute CVA. Chest x-ray demonstrated small bilateral pleural effusion patient was found to have markedly elevated proBNP she was made to admit patient to a monitored bed for subsequent management. Past Medical History Past Medical History (Chronic Problems): Chronic Problems (Last Reviewed 06/21/18 @ 10:38 by Rico Ackerman MD) Anemia in chronic kidney disease (CKD) (Chronic) Stented coronary artery (Chronic 06/06/18) Mildly elevated troponin: cutting balloon angioplasty ([place] Cutting Balloon 3.0 X 10 mm) and ALBERTO (Synergy 4.0 X 8 mm) placed from proximal to mid left main per Dr. Bustos, [facility] 11/08/2017 Triple vessel CAD of the LAD, RCA, LCX Critical lesion in SVG to RCA distal to previous stent Successful PTCA/ALBERTO distal SVG to RCA with filter wire assistance with a 3.0 x 16 Promus Synergy, post dilated with a 3.0 x 8 [place] Balloon; 85%-->0%, no dissection or distal embolization. No additional PCI of [place] RCA or LCX ISR done today due to CRI. 06/06/[address] Barnard @ [facility] History of right and left heart catheterization (Chronic 11/08/17) Per Dr. Bustos, [facility]>followed by cutting ballon angioplasty and ALBERTO to left main CAD (coronary artery disease) (Chronic) S/P PTCA (percutaneous transluminal coronary angioplasty) (Chronic) Implantable cardioverter-defibrillator (ICD) in situ (Chronic) Ischemic cardiomyopathy (Chronic) 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 Buitrago @ [facility] History of left heart catheterization (Chronic 09/06/17) Atherosclerotic heart disease of [place] coronary artery with other forms of angina pectoris (Chronic) CHARLES to LAD, SVG to RCA and SVG to CX per Dr. Buitrago @ [facility] 09/27/06. Mildly elevated troponin: cutting balloon angioplasty ([place] Cutting Balloon 3.0 X 10 mm) and ALBERTO (Synergy 4.0 X 8 mm) placed from proximal to mid left main per Dr. Bustos, [facility] 11/08/17 DM2 (diabetes mellitus, type 2) (Chronic) CKD (chronic kidney disease), stage IV (Chronic) History of pulmonary embolism (Chronic) Provoked History of hypertension (Chronic) History of hyperlipidemia (Chronic) History of gout (Chronic) 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) Medical History: Medical History (Last Reviewed 06/21/18 @ 10:38 by Rico Ackerman MD) NSTEMI (non-ST elevated myocardial infarction) (Resolved) Onset Date: 06/05/18 I21.4 CAD (coronary artery disease) (Chronic) I25.10 Implantable cardioverter-defibrillator (ICD) in situ (Chronic) Z95.810 Ischemic cardiomyopathy (Chronic) I25.5 Atherosclerotic heart disease of [place] coronary artery with other forms of angina pectoris (Chronic) I25.118 CHARLES to LAD, SVG to RCA and SVG to CX per Dr. Buitrago @ [facility] 09/27/06. Mildly elevated troponin: cutting balloon angioplasty ([place] Cutting Balloon 3.0 X 10 mm) and ALBERTO (Synergy 4.0 X 8 mm) placed from proximal to mid left main per Dr. Bustos, [facility] 11/08/17 DM2 (diabetes mellitus, type 2) (Chronic) E11.9 CKD (chronic kidney disease), stage IV (Chronic) N18.4 History of pulmonary embolism (Chronic) Z86.711 Provoked History of hypertension (Chronic) Z86.79 History of hyperlipidemia (Chronic) Z86.39 History of gout (Chronic) Z87.39 Agent orange exposure (Chronic) Z77.098 Allergies atorvastatin calcium [From Lipitor] Allergy (Verified 06/21/18 06:50) Pain in joints verapamil [From Covera-HS] Allergy (Verified 06/21/18 06:50) passes out lisinopril Adverse Reaction (Verified 06/21/18 06:50) Other muscle pain Niacin Preparations Adverse Reaction (Verified 06/21/18 06:50) Pain in joints Cholesterol Meds Adverse Reaction (Uncoded 06/21/18 06:50) Pain in joints Home Medications: Ambulatory Orders Medication Instructions Recorded Insulin Glargine,Hum.rec.anlog 14 unit SQ BREAKFAST 08/20/15 [Lantus] Clopidogrel Bisulfate [Plavix] 75 mg PO DAILY #0 12/04/15 Carvedilol [Coreg (Beta Pedro)] 25 mg PO BID #90 tab 09/08/17 Aspirin E.C. [Ecotrin] 81 mg PO DAILY 11/07/17 Venlafaxine HCl [Venlafaxine HCl 150 mg PO DAILY 11/07/17 ER] allopurinol 100 mg tablet 100 mg PO DAILY tab 11/21/17 diltiazem CD 120 mg 120 mg PO DAILY 11/21/17 capsule,extended release 24 hr pantoprazole 40 mg tablet,delayed 40 mg PO BIDAC 11/21/17 release isosorbide mononitrate ER 30 mg 30 mg PO DAILY 11/27/17 tablet,extended release 24 hr calcitriol 0.25 mcg capsule 0.25 mcg PO DAILY cap 04/20/18 Sucralfate [Carafate] 1 gm PO BIDCM 06/02/18 Nitroglycerin (INPATIENT USE) 0.4 mg SUBLINGUAL Q5M PRN #1 bottle 06/07/18 [Nitrostat] Mirtazapine [Remeron] 15 mg PO QHS 06/21/18 Surgical History: Surgical History (Last Reviewed 06/21/18 @ 10:38 by Rico Ackerman MD) Stented coronary artery (Chronic) Onset Date: 06/06/18 Z95.5 Mildly elevated troponin: cutting balloon angioplasty ([place] Cutting Balloon 3.0 X 10 mm) and ALBERTO (Synergy 4.0 X 8 mm) placed from proximal to mid left main per Dr. Bustos, [facility] 11/08/2017 Triple vessel CAD of the LAD, RCA, LCX Critical lesion in SVG to RCA distal to previous stent Successful PTCA/ALBERTO distal SVG to RCA with filter wire assistance with a 3.0 x 16 Promus Synergy, post dilated with a 3.0 x 8 [place] Balloon; 85%-->0%, no dissection or distal embolization. No additional PCI of [place] RCA or LCX ISR done today due to CRI. 06/06/[address] Barnard @ [facility] History of right and left heart catheterization (Chronic) Onset Date: 11/08/[address] Bustos, [facility]>followed by cutting ballon angioplasty and ALBERTO to left main S/P PTCA (percutaneous transluminal coronary angioplasty) (Chronic) Z98.61 History of coronary artery bypass graft x 3 (Chronic) Onset Date: 09/27/06 Z95.1 CHARLES to LAD, SVG to RCA and SVG to CX per Dr. Buitrago @ [facility] History of left heart catheterization (Chronic) Onset Date: 09/06/17 Z98.890 History of colostomy (Chronic) Z98.890 Surgical History: - - History of ruptured bowel status post colostomy, PCI, CABG, appendectomy, hernia repair. Smoking Status: Former smoker - *Family History Sibling Family History: Family History (Last Reviewed 04/20/18 @ 11:02 by Bessy Lr) Unknown No problems noted. History Items: Diabetes, Heart Disease, Renal Disease Maternal Family History: Family History (Last Reviewed 04/20/18 @ 11:02 by Bessy Lr) Unknown No problems noted. History Items: Heart Disease Paternal Family History: Family History (Last Reviewed 04/20/18 @ 11:02 by Bessy Lr) Unknown No problems noted. History Items: Heart Disease Review of Systems Unable to obtain accurate/complete ROS d/t: Patient being encephalopathic VTE Information - Inpt Only VTE Present on Admission: No VTE Mechan Device Prophylaxis: None VTE Pharm Prophylaxis ordered?: Yes Patient Problems: Active and Suspected Problems (Last Reviewed 06/21/18 @ 10:38 by Rico Ackerman MD) Acute encephalopathy (Acute) Hypoglycemia (Acute) Objective: GENERAL: Patient appears delirious with labored breathing HEENT: Atraumatic; moist oral mucosa EYES; Anicteric, Normal Conjunctiva NECK; supple, normal thyroid, distended JVD. RESPIRATORY: Diminished to auscultation bilaterally, CARDIOVASCULAR: Regular S1 S2, systolic murmurs GI: soft, non-tender, normoactive bowel sounds, : No Renal angle tenderness; EXTREMITIES: Bilateral pedal edema, no clubbing, no cyanosis. MUSCULOSKELETAL: No Joint Tenderness; no muscle waisting NEURO: Awake; appears delirious with no focal deficit. SKIN: No Rash PSYCH; delirious - Physical Exam Vital Signs Temp Pulse Resp BP Pulse Ox 97.0 F L 67 15 117/79 98 06/21/18 08:35 06/21/18 08:32 06/21/18 08:32 06/21/18 08:32 06/21/18 08:32 Oxygen Flow Rate (L/min) 2 Oxygen Delivery Method Nasal Cannula Weight: 73.3 kg Body Mass Index (BMI) 25.2 Finger Stick Blood Glucose 111 Laboratory Tests Past 24 Hrs 06/21/18 06/21/18 06/21/18 06:45 06:45 06:45 WBC 8.9 RBC 3.34 L Hgb 10.3 L Hct 30.6 L MCV 91.6 MCH 30.8 MCHC 33.7 RDW 17.2 H RDW Differential 56.1 H Plt Count 209 MPV 10.5 Immature Gran % (Auto) 0.100 Neut % (Auto) 81.9 H Lymph % (Auto) 11.8 L [place] % (Auto) 4.2 Eos % (Auto) 1.9 Baso % (Auto) 0.1 Absolute Neuts (auto) 7.3 Absolute Lymphs (auto) 1.05 Total Counted Not Reportable PT 17.0 H INR 1.4 APTT 36.0 Sodium 139 Potassium 4.8 Chloride 106 Carbon Dioxide 22.0 Anion Gap 11 BUN 82 H Creatinine 4.43 H Estim Creat Clear Calc 13.68 Est GFR (MDRD) Af Amer 17 L Est GFR (MDRD) Non-Af 14 L BUN/Creatinine Ratio 18.5 Glucose 113 H Lactic Acid Calcium 8.7 Total Bilirubin Direct Bilirubin AST ALT Alkaline Phosphatase Ammonia Total Creatine Kinase Troponin I 0.123 H B-Natriuretic Peptide Total Protein Albumin Globulin Ethyl Alcohol 06/21/18 06/21/18 06/21/18 06:45 06:45 06:45 WBC RBC Hgb Hct MCV MCH MCHC RDW RDW Differential Plt Count MPV Immature Gran % (Auto) Neut % (Auto) Lymph % (Auto) [place] % (Auto) Eos % (Auto) Baso % (Auto) Absolute Neuts (auto) Absolute Lymphs (auto) Total Counted PT INR APTT Sodium Potassium Chloride Carbon Dioxide Anion Gap BUN Creatinine Estim Creat Clear Calc Est GFR (MDRD) Af Amer Est GFR (MDRD) Non-Af BUN/Creatinine Ratio Glucose Lactic Acid Calcium Total Bilirubin 0.70 Direct Bilirubin 0.30 AST 121 H ALT 67 H Alkaline Phosphatase 124 H Ammonia Total Creatine Kinase 2618 H Troponin I B-Natriuretic Peptide Total Protein 6.5 Albumin 3.4 Globulin 3.1 Ethyl Alcohol < 3.0 06/21/18 06/21/18 06/21/18 07:15 07:15 07:15 WBC RBC Hgb Hct MCV MCH MCHC RDW RDW Differential Plt Count MPV Immature Gran % (Auto) Neut % (Auto) Lymph % (Auto) [place] % (Auto) Eos % (Auto) Baso % (Auto) Absolute Neuts (auto) Absolute Lymphs (auto) Total Counted PT INR APTT Sodium Potassium Chloride Carbon Dioxide Anion Gap BUN Creatinine Estim Creat Clear Calc Est GFR (MDRD) Af Amer Est GFR (MDRD) Non-Af BUN/Creatinine Ratio Glucose Lactic Acid 1.6 Calcium Total Bilirubin Direct Bilirubin AST ALT Alkaline Phosphatase Ammonia Cancelled < 10.0 L Total Creatine Kinase Troponin I B-Natriuretic Peptide > 5000.0 H Total Protein Albumin Globulin Ethyl Alcohol POC Glucose 06/21/18 06/21/18 08:17 06:49 POC Glucose 111 H 84 Assessment/Plan All Active Problems (Last Reviewed 06/21/18 @ 10:38 by Rico Ackerman MD) Acute encephalopathy (Acute) Hypoglycemia (Acute) Community acquired pneumonia (Acute) Acute on chronic systolic (congestive) heart failure (Acute) Chest pain (Resolved) NSTEMI (non-ST elevated myocardial infarction) (Resolved 06/05/18) Patient is a 73-year-old gentleman w with multiple comorbidities including CAD status post CABG and subsequent PCI, stage V chronic kidney disease diabetes mellitus type 2 brought in with altered mental status. Patient found to be hypoglycemic. Patient in addition was found to have acute congestive heart failure admitted to monitored bed for further management 1. Acute metabolic encephalopathy secondary to hypoglycemia. Patient has underlying history of chronic kidney disease stage V and is also diabetic. Per patient's patient did take his insulin without much oral diet has his hypoglycemia. Patient was started on D5 for the emergency department admitted to monitored bed for subsequent management. Is scheduled insulin held on admission 2. Diabetes mellitus type 2 presented with hypoglycemia management as discussed above 3. Acute on chronic systolic heart failure patient has known CHF with reduced ejection fraction of 25%. Patient admitted to monitored bed placed on Lasix drip with consultation placed to cardiology. Of note patient was seen by cardiology as outpatient a day prior to his admission 4. 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 Royal 5. Coronary artery disease with previous CABG and subsequent PCI 6. 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 Hypertension-blood pressure controlled, home medications continued with dose adjustment as needed 8. Depression with anxiety ; patient on Effexor 9. Anemia secondary to anemia of chronic disorder monitoring H&H with plans to transfuse if patient becomes symptomatic or hemoglobin falls below 7 10. GERD on PPI 10. DVT prophylaxis on heparin Code Visit Inpatient E&M: 09623 Subs Hosp L3
[2018-06-21 09:23] LABS: Mucous, Urine 0 SEEN /hpf (<or=2+); Squamous Epithelial Cells - UA 0 SEEN /hpf (0-5)
[2018-06-21 09:28] LABS: Color, Urine Yellow (Yellow); Glucose, Dipstick Normal (Normal); Ketone-Dipstick Negative (Negative); Leukocyte Esterase-Dipstick 25 /ul (Negative); Nitrite-Dipstick Negative (Negative); Occult Blood-Urine 50 /ul (Negative); Protein-Dipstick 100 mg/dl (Negative); Specific Gravity, Urine 1.015 (1.002-1.030); Urine Bilirubin Dipstick Negative (Negative); Urine Clarity Clear (Clear); Urine Urobilinogen Normal (Normal)
[2018-06-21 09:34] LABS: Bacteria RARE /hpf (None Seen); Red Blood Cells-Urine 0-5 SEEN /hpf (0-5); White Blood Cells 0-5 SEEN /hpf (0-5)
[2018-06-21 09:41] LABS: Amphetamine Urine VISTA NEGATIVE (<1000 ng/mL); Barbiturate Urine VISTA NEGATIVE (< 200 ng/mL); Benzodiazepine Urine VISTA NEGATIVE (< 200 ng/mL); Cocaine Urine VISTA NEGATIVE (< 300 ng/mL); Ecstacy Urine VISTA NEGATIVE (< 500 ng/mL); Methadone Urine VISTA NEGATIVE (< 300 ng/mL); PCP Urine VISTA NEGATIVE (< 25 ng/mL); THC Urine VISTA NEGATIVE (< 50 ng/mL); Vista UDS pH Range 5
[2018-06-21] MEDS: Dext 5%-0.45% NS 1,000 ML 75 ML IV ×2 (10:26→22:38)
[2018-06-21 11:50] LABS: Bedside Glucose 104 mg/dL (70-110)
--- NOTE | 2018-06-21 12:17 | PCM.CONS.R ---
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 He finally agrees to dialysis access and to starting dialysis. Edema and SOB improved after lasix resumed as outpt but renal function worse. He has a tremor, slurred speech. CT head no acute changes. He has weakness. Denies chest pain. He required heart stent during last hospitalization. - Allergies Allergies: Allergies atorvastatin calcium [From Lipitor] Allergy (Verified 06/21/18 06:50) Pain in joints verapamil [From Covera-HS] Allergy (Verified 06/21/18 06:50) passes out lisinopril Adverse Reaction (Verified 06/21/18 06:50) Other muscle pain Niacin Preparations Adverse Reaction (Verified 06/21/18 06:50) Pain in joints Cholesterol Meds Adverse Reaction (Uncoded 06/21/18 06:50) Pain in joints - Current Medications Current Medications: Current Medications Acetaminophen (Tylenol) 650 mg PO Q6H PRN PRN PRN Reason: Mild Pain (1-3)/Temp > 100.7 F Al Hydroxide/Mg Hydroxide (Mylanta Ii) 30 ml PO Q6H PRN PRN PRN Reason: Gastric Burning Albuterol Sulfate (Ventolin Aerosols) 2.5 mg INHALATION Q2H PRN PRN PRN Reason: Shortness of Breath/Wheezing Allopurinol (Zyloprim) 100 mg PO DAILY@0800 [facility] Aspirin (Ecotrin) 81 mg PO DAILY@0800 [facility] Calcitriol (Rocaltrol) 0.25 mcg PO DAILY MICHAEL Carvedilol (Coreg) 25 mg PO BID MICHAEL Clopidogrel Bisulfate (Plavix) 75 mg PO DAILY [facility] Dextrose (D50w Syringe) 0 gm IV X1 PRN; Protocol PRN Reason: Hypoglycemia Diltiazem HCl (Cardizem Cd) 120 mg PO DAILY [facility] Glucagon () 1 mg IM .X1 PRN PRN Reason: Hypoglycemia Guaifenesin (Robitussin) 20 ml PO Q4H PRN PRN PRN Reason: COUGH Heparin Sodium (Porcine) (Heparin Na) 5,000 unit SC Q8 [facility] Furosemide 500 mg/ (Miscellaneous Information) 50 mls @ 1 mls/hr CONT INF .Q50H [facility] Last Admin: 06/21/18 11:07 Dose: 1 mls/hr Dextrose/Sodium Chloride () 1,000 mls @ 75 mls/hr IV .[id number] [facility] Last Admin: 06/21/18 10:26 Dose: 75 mls/hr Insulin Human Lispro (Humalog Kwikpen (Bkc)) 0 unit SQ Q4 [facility]; Protocol Last Admin: 06/21/18 11:15 Dose: Not Given Isosorbide Mononitrate (Imdur) 30 mg PO DAILY [facility] Magnesium Hydroxide (Milk Of Magnesia) 30 ml PO DAILY PRN PRN PRN Reason: Constipation Melatonin (Melatonin) 3 mg PO QHS PRN PRN PRN Reason: INSOMNIA Mirtazapine (Remeron) 15 mg PO QHS [facility] Nitroglycerin (Nitrostat) 0.4 mg SUBLINGUAL Q5M PRN PRN Reason: CARDIAC/CHEST PAIN Ondansetron HCl (Zofran) 4 mg IV Q8H PRN PRN PRN Reason: NAUSEA/VOMITING Oxycodone HCl (Oxyir) 5 mg PO Q4H PRN PRN PRN Reason: Moderate Pain (4-6/10) Pantoprazole Sodium (Protonix) 40 mg PO BIDAC [facility] Promethazine HCl (Phenergan) 25 mg IM Q6H PRN PRN PRN Reason: Breakthrough nausea/vomiting Sodium Chloride () 5 - 15 ml IV UD PRN PRN Reason: SALINE FLUSH Sucralfate (Carafate) 1 gm PO BID@0700,1600 [facility] Venlafaxine HCl (Effexor Xr) 150 mg PO DAILY [facility] - Past Medical History Past Medical History (Chronic Problems): Chronic Problems (Last Reviewed 06/21/18 @ 10:38 by Rico Ackerman MD) Chronic renal failure, stage 5 (Chronic) Anemia in chronic kidney disease (CKD) (Chronic) Stented coronary artery (Chronic 06/06/18) Mildly elevated troponin: cutting balloon angioplasty (Nichols Cutting Balloon 3.0 X 10 mm) and ALBERTO (Synergy 4.0 X 8 mm) placed from proximal to mid left main per Dr. Bustos, [facility] 11/08/2017 Triple vessel CAD of the LAD, RCA, LCX Critical lesion in SVG to RCA distal to previous stent Successful PTCA/ALBERTO distal SVG to RCA with filter wire assistance with a 3.0 x 16 Promus Synergy, post dilated with a 3.0 x 8 NC Balloon; 85%-->0%, no dissection or distal embolization. No additional PCI of ho-chunk RCA or LCX ISR done today due to CRI. 06/06/[address] Barnard @ [facility] History of right and left heart catheterization (Chronic 11/08/17) Per Dr. Bustos, [facility]>followed by cutting ballon angioplasty and ALBERTO to left main CAD (coronary artery disease) (Chronic) S/P PTCA (percutaneous transluminal coronary angioplasty) (Chronic) Implantable cardioverter-defibrillator (ICD) in situ (Chronic) Ischemic cardiomyopathy (Chronic) 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 Buitrago @ [facility] History of left heart catheterization (Chronic 09/06/17) Atherosclerotic heart disease of ho-chunk coronary artery with other forms of angina pectoris (Chronic) CHARLES to LAD, SVG to RCA and SVG to CX per Dr. Buitrago @ [facility] 09/27/06. Mildly elevated troponin: cutting balloon angioplasty (Nichols Cutting Balloon 3.0 X 10 mm) and ALBERTO (Synergy 4.0 X 8 mm) placed from proximal to mid left main per Dr. 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 - Social History Smoking Status: Former smoker - Family History Sibling Family History: Family History (Last Reviewed 04/20/18 @ 11:02 by Bessy Lr) Unknown No problems noted. History Items: Diabetes, Heart Disease, Renal Disease Maternal Family History: Family History (Last Reviewed 04/20/18 @ 11:02 by Bessy Lr) Unknown No problems noted. History Items: Heart Disease Paternal Family History: Family History (Last Reviewed 04/20/18 @ 11:02 by Bessy Lr) Unknown No problems noted. History Items: Heart Disease Review of Systems Constitutional: Reports: Anorexia, Weakness, Fatigue. Denies: Chills, Fever Eyes: Denies: Vision Change Cardiovascular: Denies: Chest Pain, Edema Respiratory: Reports: Cough, Shortness of Breath, Shortness of breath upon exertion Gastrointestinal: Reports: Nausea, - - anorexia. Denies: Abdominal Pain, Diarrhea, Vomiting Musculoskeletal: Reports: - - edema improved with diuretics Skin: Denies: Rash Psychiatric: Denies: Anxiety, Depression Hematologic/ Lymphatic: Reports: Anemia Patient Problems: Active and Suspected Problems (Last Reviewed 06/21/18 @ 10:38 by Rico Ackerman MD) Acute encephalopathy (Acute) Hypoglycemia (Acute) - Physical Exam General: Alert, Oriented x3, Cooperative, No apparent distress, - - anxious, slurred speech HEENT: PERRLA, EOMI Lungs: Clear to auscultation Cardiovascular: Regular rate Abdomen: Bowel Sounds Present, Soft, Non Tender, Non-Distended Extremities: No edema Skin: No rashes Psych/Mental Status: Normal Affect, Appropriate, Alert and oriented to time, place, person, mood and affect Vital Signs Temp Pulse Resp BP Pulse Ox 98.0 F 73 18 147/82 H 94 06/21/18 10:29 06/21/18 12:00 06/21/18 12:00 06/21/18 12:00 06/21/18 12:00 Oxygen Flow Rate (L/min) 2 Oxygen Delivery Method Nasal Cannula Weight: 70.8 kg Body Mass Index (BMI) 24.4 Finger Stick Blood Glucose 111 Laboratory Tests Past 24 Hrs 06/21/18 06/21/18 06/21/18 06:45 06:45 06:45 WBC 8.9 RBC 3.34 L Hgb 10.3 L Hct 30.6 L MCV 91.6 MCH 30.8 MCHC 33.7 RDW 17.2 H RDW Differential 56.1 H Plt Count 209 MPV 10.5 Immature Gran % (Auto) 0.100 Neut % (Auto) 81.9 H Lymph % (Auto) 11.8 L [place] % (Auto) 4.2 Eos % (Auto) 1.9 Baso % (Auto) 0.1 Absolute Neuts (auto) 7.3 Absolute Lymphs (auto) 1.05 Total Counted Not Reportable PT 17.0 H INR 1.4 APTT 36.0 Sodium 139 Potassium 4.8 Chloride 106 Carbon Dioxide 22.0 Anion Gap 11 BUN 82 H Creatinine 4.43 H Estim Creat Clear Calc 13.68 Est GFR (MDRD) Af Amer 17 L Est GFR (MDRD) Non-Af 14 L BUN/Creatinine Ratio 18.5 Glucose 113 H Lactic Acid Calcium 8.7 Total Bilirubin Direct Bilirubin AST ALT Alkaline Phosphatase Ammonia Total Creatine Kinase Troponin I 0.123 H B-Natriuretic Peptide Total Protein Albumin Globulin Urine Color Urine Clarity Urine pH Ur Specific [place] Urine Protein Urine Glucose (UA) Urine Ketones Urine Occult Blood Urine Nitrite Urine Bilirubin Urine Urobilinogen Ur Leukocyte Esterase Urine RBC Urine WBC Ur Squamous Epith Cells Urine Bacteria Urine Mucus Urine Opiates Screen Urine Methadone Screen Ur Barbiturates Screen Ur Phencyclidine Scrn Ur Amphetamines Screen U Methamphetamin-MDMA U Benzodiazepines Scrn Urine Cocaine Screen U Cannabinoids Screen Ur Drug Screen Comment Ethyl Alcohol 06/21/18 06/21/18 06/21/18 06:45 06:45 06:45 WBC RBC Hgb Hct MCV MCH MCHC RDW RDW Differential Plt Count MPV Immature Gran % (Auto) Neut % (Auto) Lymph % (Auto) [place] % (Auto) Eos % (Auto) Baso % (Auto) Absolute Neuts (auto) Absolute Lymphs (auto) Total Counted PT INR APTT Sodium Potassium Chloride Carbon Dioxide Anion Gap BUN Creatinine Estim Creat Clear Calc Est GFR (MDRD) Af Amer Est GFR (MDRD) Non-Af BUN/Creatinine Ratio Glucose Lactic Acid Calcium Total Bilirubin 0.70 Direct Bilirubin 0.30 AST 121 H ALT 67 H Alkaline Phosphatase 124 H Ammonia Total Creatine Kinase 2618 H Troponin I B-Natriuretic Peptide Total Protein 6.5 Albumin 3.4 Globulin 3.1 Urine Color Urine Clarity Urine pH Ur Specific [place] Urine Protein Urine Glucose (UA) Urine Ketones Urine Occult Blood Urine Nitrite Urine Bilirubin Urine Urobilinogen Ur Leukocyte Esterase Urine RBC Urine WBC Ur Squamous Epith Cells Urine Bacteria Urine Mucus Urine Opiates Screen Urine Methadone Screen Ur Barbiturates Screen Ur Phencyclidine Scrn Ur Amphetamines Screen U Methamphetamin-MDMA U Benzodiazepines Scrn Urine Cocaine Screen U Cannabinoids Screen Ur Drug Screen Comment Ethyl Alcohol < 3.0 06/21/18 06/21/18 06/21/18 07:15 07:15 07:15 WBC RBC Hgb Hct MCV MCH MCHC RDW RDW Differential Plt Count MPV Immature Gran % (Auto) Neut % (Auto) Lymph % (Auto) [place] % (Auto) Eos % (Auto) Baso % (Auto) Absolute Neuts (auto) Absolute Lymphs (auto) Total Counted PT INR APTT Sodium Potassium Chloride Carbon Dioxide Anion Gap BUN Creatinine Estim Creat Clear Calc Est GFR (MDRD) Af Amer Est GFR (MDRD) Non-Af BUN/Creatinine Ratio Glucose Lactic Acid 1.6 Calcium Total Bilirubin Direct Bilirubin AST ALT Alkaline Phosphatase Ammonia Cancelled < 10.0 L Total Creatine Kinase Troponin I B-Natriuretic Peptide > 5000.0 H Total Protein Albumin Globulin Urine Color Urine Clarity Urine pH Ur Specific [place] Urine Protein Urine Glucose (UA) Urine Ketones Urine Occult Blood Urine Nitrite Urine Bilirubin Urine Urobilinogen Ur Leukocyte Esterase Urine RBC Urine WBC Ur Squamous Epith Cells Urine Bacteria Urine Mucus Urine Opiates Screen Urine Methadone Screen Ur Barbiturates Screen Ur Phencyclidine Scrn Ur Amphetamines Screen U Methamphetamin-MDMA U Benzodiazepines Scrn Urine Cocaine Screen U Cannabinoids Screen Ur Drug Screen Comment Ethyl Alcohol 06/21/18 06/21/18 06/21/18 09:18 09:18 10:02 WBC RBC Hgb Hct MCV MCH MCHC RDW RDW Differential Plt Count MPV Immature Gran % (Auto) Neut % (Auto) Lymph % (Auto) [place] % (Auto) Eos % (Auto) Baso % (Auto) Absolute Neuts (auto) Absolute Lymphs (auto) Total Counted PT INR APTT Sodium Potassium Chloride Carbon Dioxide Anion Gap BUN Creatinine Estim Creat Clear Calc Est GFR (MDRD) Af Amer Est GFR (MDRD) Non-Af BUN/Creatinine Ratio Glucose Lactic Acid Calcium Total Bilirubin Direct Bilirubin AST ALT Alkaline Phosphatase Ammonia Total Creatine Kinase Troponin I 0.124 H B-Natriuretic Peptide Total Protein Albumin Globulin Urine Color Yellow Urine Clarity Clear Urine pH 6.0 Ur Specific [place] 1.015 Urine Protein 100 H Urine Glucose (UA) Normal Urine Ketones Negative Urine Occult Blood 50 H Urine Nitrite Negative Urine Bilirubin Negative Urine Urobilinogen Normal Ur Leukocyte Esterase 25 H Urine RBC 0-5 SEEN Urine WBC 0-5 SEEN Ur Squamous Epith Cells 0 SEEN Urine Bacteria RARE Urine Mucus 0 SEEN Urine Opiates Screen NEGATIVE Urine Methadone Screen NEGATIVE Ur Barbiturates Screen NEGATIVE Ur Phencyclidine Scrn NEGATIVE Ur Amphetamines Screen NEGATIVE U Methamphetamin-MDMA NEGATIVE U Benzodiazepines Scrn NEGATIVE Urine Cocaine Screen NEGATIVE U Cannabinoids Screen NEGATIVE Ur Drug Screen Comment Ethyl Alcohol POC Glucose 06/21/18 06/21/18 06/21/18 11:14 08:17 06:49 POC Glucose 104 111 H 84 Clinical Impression(s) from Imaging Studies Brain CT 06/21/18 06:53 IMPRESSION: Chronic involutional changes of the brain. Electronically Signed: Iris Flores, at 7:14 EDT Tel , Service support , ADDENDUM: 06/21/18 0724 IMPRESSION: Chronic involutional changes of the brain. N.B. : The above information has been verbally conveyed by Iris Flores to Mounika Martinez on 06/21/2018 07:17:50 (ET). Electronically Signed: Iris Flores, at 7:14 EDT Tel , Service support , Chest X-Ray 06/21/18 07:03 IMPRESSION: Small bilateral pleural effusions. Electronically Signed: Iris Flores, at 7:44 EDT Tel , Service support , Assessment/Plan All Active Problems (Last Reviewed 06/21/18 @ 10:38 by Rico Ackerman MD) Acute encephalopathy (Acute) Hypoglycemia (Acute) Community acquired pneumonia (Acute) Acute on chronic systolic (congestive) heart failure (Acute) Chest pain (Resolved) NSTEMI (non-ST elevated myocardial infarction) (Resolved 06/05/18) 1. ESRD due to diabetic nephropathy. Initiate dialysis after line placement. Pt consents to initiate dialysis. 2. Encephalopathy with slurred speech improved. CT head no acute findings. 3. Diabetes mellitus type 2 primary management. 4. Anemia hemoglobin stable 5. Hypertension with stable blood pressures
--- NOTE | 2018-06-21 12:21 | CON.PCM_ITS ---
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 He finally agrees to dialysis access and to starting dialysis. Edema and SOB improved after lasix resumed as outpt but renal function worse. He has a tremor, slurred speech. CT head no acute changes. He has weakness. Denies chest pain. He required heart stent during last hospitalization. - Allergies Allergies: Allergies atorvastatin calcium [From Lipitor] Allergy (Verified 06/21/18 06:50) Pain in joints verapamil [From Covera-HS] Allergy (Verified 06/21/18 06:50) passes out lisinopril Adverse Reaction (Verified 06/21/18 06:50) Other muscle pain Niacin Preparations Adverse Reaction (Verified 06/21/18 06:50) Pain in joints Cholesterol Meds Adverse Reaction (Uncoded 06/21/18 06:50) Pain in joints - Current Medications Current Medications: Current Medications Acetaminophen (Tylenol) 650 mg PO Q6H PRN PRN PRN Reason: Mild Pain (1-3)/Temp > 100.7 F Al Hydroxide/Mg Hydroxide (Mylanta Ii) 30 ml PO Q6H PRN PRN PRN Reason: Gastric Burning Albuterol Sulfate (Ventolin Aerosols) 2.5 mg INHALATION Q2H PRN PRN PRN Reason: Shortness of Breath/Wheezing Allopurinol (Zyloprim) 100 mg PO DAILY@0800 [facility] Aspirin (Ecotrin) 81 mg PO DAILY@0800 [facility] Calcitriol (Rocaltrol) 0.25 mcg PO DAILY MIC[facility]EL Carvedilol (Coreg) 25 mg PO BID [facility]EL Clopidogrel Bisulfate (Plavix) 75 mg PO DAILY [facility] Dextrose (D50w Syringe) 0 gm IV X1 PRN; Protocol PRN Reason: Hypoglycemia Diltiazem HCl (Cardizem Cd) 120 mg PO DAILY [facility] Glucagon () 1 mg IM .X1 PRN PRN Reason: Hypoglycemia Guaifenesin (Robitussin) 20 ml PO Q4H PRN PRN PRN Reason: COUGH Heparin Sodium (Porcine) (Heparin Na) 5,000 unit SC Q8 [facility] Furosemide 500 mg/ (Miscellaneous Information) 50 mls @ 1 mls/hr CONT INF .Q50H [facility] Last Admin: 06/21/18 11:07 Dose: 1 mls/hr Dextrose/Sodium Chloride () 1,000 mls @ 75 mls/hr IV .[id number] [facility] Last Admin: 06/21/18 10:26 Dose: 75 mls/hr Insulin Human Lispro (Humalog Kwikpen (Bkc)) 0 unit SQ Q4 [facility]; Protocol Last Admin: 06/21/18 11:15 Dose: Not Given Isosorbide Mononitrate (Imdur) 30 mg PO DAILY [facility] Magnesium Hydroxide (Milk Of Magnesia) 30 ml PO DAILY PRN PRN PRN Reason: Constipation Melatonin (Melatonin) 3 mg PO QHS PRN PRN PRN Reason: INSOMNIA Mirtazapine (Remeron) 15 mg PO QHS [facility] Nitroglycerin (Nitrostat) 0.4 mg SUBLINGUAL Q5M PRN PRN Reason: CARDIAC/CHEST PAIN Ondansetron HCl (Zofran) 4 mg IV Q8H PRN PRN PRN Reason: NAUSEA/VOMITING Oxycodone HCl (Oxyir) 5 mg PO Q4H PRN PRN PRN Reason: Moderate Pain (4-6/10) Pantoprazole Sodium (Protonix) 40 mg PO BIDAC [facility] Promethazine HCl (Phenergan) 25 mg IM Q6H PRN PRN PRN Reason: Breakthrough nausea/vomiting Sodium Chloride () 5 - 15 ml IV UD PRN PRN Reason: SALINE FLUSH Sucralfate (Carafate) 1 gm PO BID@0700,1600 [facility] Venlafaxine HCl (Effexor Xr) 150 mg PO DAILY [facility] - Past Medical History Past Medical History (Chronic Problems): Chronic Problems (Last Reviewed 06/21/18 @ 10:38 by Rico Ackerman MD) Chronic renal failure, stage 5 (Chronic) Anemia in chronic kidney disease (CKD) (Chronic) Stented coronary artery (Chronic 06/06/18) Mildly elevated troponin: cutting balloon angioplasty ([place] Cutting Balloon 3.0 X 10 mm) and ALBERTO (Synergy 4.0 X 8 mm) placed from proximal to mid left main per Dr. Bustos, [facility] 11/08/2017 Triple vessel CAD of the LAD, RCA, LCX Critical lesion in SVG to RCA distal to previous stent Successful PTCA/ALBERTO distal SVG to RCA with filter wire assistance with a 3.0 x 16 Promus Synergy, post dilated with a 3.0 x 8 NC Balloon; 85%-->0%, no dissection or distal embolization. No additional PCI of tangirnaq RCA or LCX ISR done today due to CRI. 06/06/[address] Barnard @ [facility] History of right and left heart catheterization (Chronic 11/08/17) Per Dr. Bustos, [facility]>followed by cutting ballon angioplasty and ALBERTO to left main CAD (coronary artery disease) (Chronic) S/P PTCA (percutaneous transluminal coronary angioplasty) (Chronic) Implantable cardioverter-defibrillator (ICD) in situ (Chronic) Ischemic cardiomyopathy (Chronic) 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 Buitrago @ [facility] History of left heart catheterization (Chronic 09/06/17) Atherosclerotic heart disease of tangirnaq coronary artery with other forms of angina pectoris (Chronic) CHARLES to LAD, SVG to RCA and SVG to CX per Dr. Buitrago @ [facility] 09/27/06. Mildly elevated troponin: cutting balloon angioplasty ([place] Cutting Balloon 3.0 X 10 mm) and ALBERTO (Synergy 4.0 X 8 mm) placed from proximal to mid left main per Dr. 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 - Social History Smoking Status: Former smoker - Family History Sibling Family History: Family History (Last Reviewed 04/20/18 @ 11:02 by Bessy Lr) Unknown No problems noted. History Items: Diabetes, Heart Disease, Renal Disease Maternal Family History: Family History (Last Reviewed 04/20/18 @ 11:02 by Bessy Lr) Unknown No problems noted. History Items: Heart Disease Paternal Family History: Family History (Last Reviewed 04/20/18 @ 11:02 by Bessy Lr) Unknown No problems noted. History Items: Heart Disease Review of Systems Constitutional: Reports: Anorexia, Weakness, Fatigue. Denies: Chills, Fever Eyes: Denies: Vision Change Cardiovascular: Denies: Chest Pain, Edema Respiratory: Reports: Cough, Shortness of Breath, Shortness of breath upon exertion Gastrointestinal: Reports: Nausea, - - anorexia. Denies: Abdominal Pain, Diarrhea, Vomiting Musculoskeletal: Reports: - - edema improved with diuretics Skin: Denies: Rash Psychiatric: Denies: Anxiety, Depression Hematologic/ Lymphatic: Reports: Anemia Patient Problems: Active and Suspected Problems (Last Reviewed 06/21/18 @ 10:38 by Rico Ackerman MD) Acute encephalopathy (Acute) Hypoglycemia (Acute) - Physical Exam General: Alert, Oriented x3, Cooperative, No apparent distress, - - anxious, slurred speech HEENT: PERRLA, EOMI Lungs: Clear to auscultation Cardiovascular: Regular rate Abdomen: Bowel Sounds Present, Soft, Non Tender, Non-Distended Extremities: No edema Skin: No rashes Psych/Mental Status: Normal Affect, Appropriate, Alert and oriented to time, place, person, mood and affect Vital Signs Temp Pulse Resp BP Pulse Ox 98.0 F 73 18 147/82 H 94 06/21/18 10:29 06/21/18 12:00 06/21/18 12:00 06/21/18 12:00 06/21/18 12:00 Oxygen Flow Rate (L/min) 2 Oxygen Delivery Method Nasal Cannula Weight: 70.8 kg Body Mass Index (BMI) 24.4 Finger Stick Blood Glucose 111 Laboratory Tests Past 24 Hrs 06/21/18 06/21/18 06/21/18 06:45 06:45 06:45 WBC 8.9 RBC 3.34 L Hgb 10.3 L Hct 30.6 L MCV 91.6 MCH 30.8 MCHC 33.7 RDW 17.2 H RDW Differential 56.1 H Plt Count 209 MPV 10.5 Immature Gran % (Auto) 0.100 Neut % (Auto) 81.9 H Lymph % (Auto) 11.8 L Levy % (Auto) 4.2 Eos % (Auto) 1.9 Baso % (Auto) 0.1 Absolute Neuts (auto) 7.3 Absolute Lymphs (auto) 1.05 Total Counted Not Reportable PT 17.0 H INR 1.4 APTT 36.0 Sodium 139 Potassium 4.8 Chloride 106 Carbon Dioxide 22.0 Anion Gap 11 BUN 82 H Creatinine 4.43 H Estim Creat Clear Calc 13.68 Est GFR (MDRD) Af Amer 17 L Est GFR (MDRD) Non-Af 14 L BUN/Creatinine Ratio 18.5 Glucose 113 H Lactic Acid Calcium 8.7 Total Bilirubin Direct Bilirubin AST ALT Alkaline Phosphatase Ammonia Total Creatine Kinase Troponin I 0.123 H B-Natriuretic Peptide Total Protein Albumin Globulin Urine Color Urine Clarity Urine pH Ur Specific Brady Urine Protein Urine Glucose (UA) Urine Ketones Urine Occult Blood Urine Nitrite Urine Bilirubin Urine Urobilinogen Ur Leukocyte Esterase Urine RBC Urine WBC Ur Squamous Epith Cells Urine Bacteria Urine Mucus Urine Opiates Screen Urine Methadone Screen Ur Barbiturates Screen Ur Phencyclidine Scrn Ur Amphetamines Screen U Methamphetamin-MDMA U Benzodiazepines Scrn Urine Cocaine Screen U Cannabinoids Screen Ur Drug Screen Comment Ethyl Alcohol 06/21/18 06/21/18 06/21/18 06:45 06:45 06:45 WBC RBC Hgb Hct MCV MCH MCHC RDW RDW Differential Plt Count MPV Immature Gran % (Auto) Neut % (Auto) Lymph % (Auto) Levy % (Auto) Eos % (Auto) Baso % (Auto) Absolute Neuts (auto) Absolute Lymphs (auto) Total Counted PT INR APTT Sodium Potassium Chloride Carbon Dioxide Anion Gap BUN Creatinine Estim Creat Clear Calc Est GFR (MDRD) Af Amer Est GFR (MDRD) Non-Af BUN/Creatinine Ratio Glucose Lactic Acid Calcium Total Bilirubin 0.70 Direct Bilirubin 0.30 AST 121 H ALT 67 H Alkaline Phosphatase 124 H Ammonia Total Creatine Kinase 2618 H Troponin I B-Natriuretic Peptide Total Protein 6.5 Albumin 3.4 Globulin 3.1 Urine Color Urine Clarity Urine pH Ur Specific Brady Urine Protein Urine Glucose (UA) Urine Ketones Urine Occult Blood Urine Nitrite Urine Bilirubin Urine Urobilinogen Ur Leukocyte Esterase Urine RBC Urine WBC Ur Squamous Epith Cells Urine Bacteria Urine Mucus Urine Opiates Screen Urine Methadone Screen Ur Barbiturates Screen Ur Phencyclidine Scrn Ur Amphetamines Screen U Methamphetamin-MDMA U Benzodiazepines Scrn Urine Cocaine Screen U Cannabinoids Screen Ur Drug Screen Comment Ethyl Alcohol < 3.0 06/21/18 06/21/18 06/21/18 07:15 07:15 07:15 WBC RBC Hgb Hct MCV MCH MCHC RDW RDW Differential Plt Count MPV Immature Gran % (Auto) Neut % (Auto) Lymph % (Auto) Levy % (Auto) Eos % (Auto) Baso % (Auto) Absolute Neuts (auto) Absolute Lymphs (auto) Total Counted PT INR APTT Sodium Potassium Chloride Carbon Dioxide Anion Gap BUN Creatinine Estim Creat Clear Calc Est GFR (MDRD) Af Amer Est GFR (MDRD) Non-Af BUN/Creatinine Ratio Glucose Lactic Acid 1.6 Calcium Total Bilirubin Direct Bilirubin AST ALT Alkaline Phosphatase Ammonia Cancelled < 10.0 L Total Creatine Kinase Troponin I B-Natriuretic Peptide > 5000.0 H Total Protein Albumin Globulin Urine Color Urine Clarity Urine pH Ur Specific Brady Urine Protein Urine Glucose (UA) Urine Ketones Urine Occult Blood Urine Nitrite Urine Bilirubin Urine Urobilinogen Ur Leukocyte Esterase Urine RBC Urine WBC Ur Squamous Epith Cells Urine Bacteria Urine Mucus Urine Opiates Screen Urine Methadone Screen Ur Barbiturates Screen Ur Phencyclidine Scrn Ur Amphetamines Screen U Methamphetamin-MDMA U Benzodiazepines Scrn Urine Cocaine Screen U Cannabinoids Screen Ur Drug Screen Comment Ethyl Alcohol 06/21/18 06/21/18 06/21/18 09:18 09:18 10:02 WBC RBC Hgb Hct MCV MCH MCHC RDW RDW Differential Plt Count MPV Immature Gran % (Auto) Neut % (Auto) Lymph % (Auto) Levy % (Auto) Eos % (Auto) Baso % (Auto) Absolute Neuts (auto) Absolute Lymphs (auto) Total Counted PT INR APTT Sodium Potassium Chloride Carbon Dioxide Anion Gap BUN Creatinine Estim Creat Clear Calc Est GFR (MDRD) Af Amer Est GFR (MDRD) Non-Af BUN/Creatinine Ratio Glucose Lactic Acid Calcium Total Bilirubin Direct Bilirubin AST ALT Alkaline Phosphatase Ammonia Total Creatine Kinase Troponin I 0.124 H B-Natriuretic Peptide Total Protein Albumin Globulin Urine Color Yellow Urine Clarity Clear Urine pH 6.0 Ur Specific Brady 1.015 Urine Protein 100 H Urine Glucose (UA) Normal Urine Ketones Negative Urine Occult Blood 50 H Urine Nitrite Negative Urine Bilirubin Negative Urine Urobilinogen Normal Ur Leukocyte Esterase 25 H Urine RBC 0-5 SEEN Urine WBC 0-5 SEEN Ur Squamous Epith Cells 0 SEEN Urine Bacteria RARE Urine Mucus 0 SEEN Urine Opiates Screen NEGATIVE Urine Methadone Screen NEGATIVE Ur Barbiturates Screen NEGATIVE Ur Phencyclidine Scrn NEGATIVE Ur Amphetamines Screen NEGATIVE U Methamphetamin-MDMA NEGATIVE U Benzodiazepines Scrn NEGATIVE Urine Cocaine Screen NEGATIVE U Cannabinoids Screen NEGATIVE Ur Drug Screen Comment Ethyl Alcohol POC Glucose 06/21/18 06/21/18 06/21/18 11:14 08:17 06:49 POC Glucose 104 111 H 84 Clinical Impression(s) from Imaging Studies Brain CT 06/21/18 06:53 IMPRESSION: Chronic involutional changes of the brain. Electronically Signed: Iris Flores, at 7:14 EDT Tel , Service support , ADDENDUM: 06/21/18 0724 IMPRESSION: Chronic involutional changes of the brain. N.B. : The above information has been verbally conveyed by Iris Flores to Mounika Martinez on 06/21/2018 07:17:50 (ET). Electronically Signed: Iris Flores, at 7:14 EDT Tel , Service support , Chest X-Ray 06/21/18 07:03 IMPRESSION: Small bilateral pleural effusions. Electronically Signed: Iris Flores, at 7:44 EDT Tel , Service support , Assessment/Plan All Active Problems (Last Reviewed 06/21/18 @ 10:38 by Rico Ackerman MD) Acute encephalopathy (Acute) Hypoglycemia (Acute) Community acquired pneumonia (Acute) Acute on chronic systolic (congestive) heart failure (Acute) Chest pain (Resolved) NSTEMI (non-ST elevated myocardial infarction) (Resolved 06/05/18) 1. ESRD due to diabetic nephropathy. Initiate dialysis after line placement. Pt consents to initiate dialysis. 2. Encephalopathy with slurred speech improved. CT head no acute findings. 3. Diabetes mellitus type 2 primary management. 4. Anemia hemoglobin stable 5. Hypertension with stable blood pressures
--- NOTE | 2018-06-21 12:47 | CASEMGMT ---
Per Dr. Royal, pt will need set up with OP dialysis at [facility]. Referral faxed to [facility] patient admission at this time. Hep panel has not yet been drawn and pt is awaiting temp cath placement. This RN CM will fax updated info once received. Tiffanie RN CM
[2018-06-21 12:53] LABS: Phosphorus 6.3 mg/dL (2.5-4.9)
--- NOTE | 2018-06-21 13:01 | PCM.CONS.C ---
Problem List (1) Acute on chronic systolic (congestive) heart failure Status: Acute Reason for Consult Date of Consultation: 06/21/18 History of Present Illness: The patient is a 73 year old M with multiple comorbidities including CKD stage V, diabetes mellitus type 2, coronary artery disease with previous CABG and subsequent PCI with ischemic cardiomyopathy with known ejection fraction of 25% was brought to the emergency department by the with decreased level of 7 serial and patient slurring his speech. Per patient's patient had apparently refused to eat over the past couple of days. On the day of her presentation patient's felt patient was having a stroke the EMS squad was called who upon arrival found patient blood glucose to be in the 30s. Treatment was initiated on the field and patient brought to the emergency department. In the ED patient underwent subsequent evaluation with imaging studies which failed to demonstrate any acute CVA. Chest x-ray demonstrated small bilateral pleural effusion patient was found to have markedly elevated proBNP she was made to admit patient to a monitored bed for subsequent management. Patient is oriented x3 but is not a very good historian. He was seen in the cardiology office yesterday and did not have any shortness of breath at that time. He denies any shortness of breath to me today as well. He was started on a Lasix drip about 1 hour ago. He has been evaluated by nephrology and will likely start dialysis while he is an inpatient. He denies any chest pain, orthopnea. Some details of his cardiac history are as follows: He underwent a repeat left heart catheterization and graft angiography by Dr. Barnard on 09/06/17 which showed severe three-vessel coronary artery disease, calcified left main, patent left circumflex stents, occluded saphenous vein graft to the left circumflex, patent saphenous vein graft to the RCA with a patent stent in the middle portion of the graft, patent CHARLES to LAD, and moderate to severe global LV dysfunction with an EF around 30%. He was also found to be extremely hypertensive during the heart cath in the 180s. He was then transferred to [facility] where he underwent successful cutting balloon angioplasty and stenting of his left main receiving a 4.0X8 Promus Synergy stent by Dr. Bustos with an excellent result. He then underwent AICD placement with Dr. Desouza at [facility]. In May 2018 he was found to have patent stent in the SVG to RCA but had a stenosis distal to the stent which was treated with 3. 0 x 16 mm Promus drug-eluting stent. Patient was supposed to be on nitrate and hydralazine but states that somebody told him to stop hydralazine yesterday. He does not recall any reaction to hydralazine. Dr. Barnard's office note from yesterday does not mention stopping hydralazine as well. Past Medical History Allergies/Adverse Reactions: Allergies atorvastatin calcium [From Lipitor] Allergy (Verified 06/21/18 06:50) Pain in joints verapamil [From Covera-HS] Allergy (Verified 06/21/18 06:50) passes out lisinopril Adverse Reaction (Verified 06/21/18 06:50) Other muscle pain Niacin Preparations Adverse Reaction (Verified 06/21/18 06:50) Pain in joints Cholesterol Meds Adverse Reaction (Uncoded 06/21/18 06:50) Pain in joints Home Medications: Ambulatory Orders Medication Instructions Recorded Insulin Glargine,Hum.rec.anlog 14 unit SQ BREAKFAST 08/20/15 [Lantus] Clopidogrel Bisulfate [Plavix] 75 mg PO DAILY #0 12/04/15 Carvedilol [Coreg (Beta Pedro)] 25 mg PO BID #90 tab 09/08/17 Aspirin E.C. [Ecotrin] 81 mg PO DAILY 11/07/17 Venlafaxine HCl [Venlafaxine HCl 150 mg PO DAILY 11/07/17 ER] allopurinol 100 mg tablet 100 mg PO DAILY tab 11/21/17 diltiazem CD 120 mg 120 mg PO DAILY 11/21/17 capsule,extended release 24 hr pantoprazole 40 mg tablet,delayed 40 mg PO BIDAC 11/21/17 release isosorbide mononitrate ER 30 mg 30 mg PO DAILY 11/27/17 tablet,extended release 24 hr calcitriol 0.25 mcg capsule 0.25 mcg PO DAILY cap 04/20/18 Sucralfate [Carafate] 1 gm PO BIDCM 06/02/18 Nitroglycerin (INPATIENT USE) 0.4 mg SUBLINGUAL Q5M PRN #1 bottle 06/07/18 [Nitrostat] Mirtazapine [Remeron] 15 mg PO QHS 06/21/18 Past Medical History (Chronic Problems): Chronic Problems (Last Reviewed 06/21/18 @ 10:38 by Rico Ackerman MD) Anemia in chronic kidney disease (CKD) (Chronic) Stented coronary artery (Chronic 06/06/18) Mildly elevated troponin: cutting balloon angioplasty ([place] Cutting Balloon 3.0 X 10 mm) and ALBERTO (Synergy 4.0 X 8 mm) placed from proximal to mid left main per Dr. Bustos, [facility] 11/08/2017 Triple vessel CAD of the LAD, RCA, LCX Critical lesion in SVG to RCA distal to previous stent Successful PTCA/ALBERTO distal SVG to RCA with filter wire assistance with a 3.0 x 16 Promus Synergy, post dilated with a 3.0 x 8 NC Balloon; 85%-->0%, no dissection or distal embolization. No additional PCI of [place] RCA or LCX ISR done today due to CRI. 06/06/[address] Barnard @ [facility] History of right and left heart catheterization (Chronic 11/08/17) Per Dr. Bustos, [facility]>followed by cutting ballon angioplasty and ALBERTO to left main CAD (coronary artery disease) (Chronic) S/P PTCA (percutaneous transluminal coronary angioplasty) (Chronic) Implantable cardioverter-defibrillator (ICD) in situ (Chronic) Ischemic cardiomyopathy (Chronic) 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 Buitrago @ [facility] History of left heart catheterization (Chronic 09/06/17) Atherosclerotic heart disease of [place] coronary artery with other forms of angina pectoris (Chronic) CHARLES to LAD, SVG to RCA and SVG to CX per Dr. Buitrago @ [facility] 09/27/06. Mildly elevated troponin: cutting balloon angioplasty ([place] Cutting Balloon 3.0 X 10 mm) and ALBERTO (Synergy 4.0 X 8 mm) placed from proximal to mid left main per Dr. Bustos, [facility] 11/08/17 DM2 (diabetes mellitus, type 2) (Chronic) CKD (chronic kidney disease), stage IV (Chronic) History of pulmonary embolism (Chronic) Provoked History of hypertension (Chronic) History of hyperlipidemia (Chronic) History of gout (Chronic) 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) Surgical History: - - History of ruptured bowel status post colostomy, PCI, CABG, appendectomy, hernia repair. - *Family History Sibling Family History: Family History (Last Reviewed 04/20/18 @ 11:02 by Bessy Lr) Unknown No problems noted. History Items: Diabetes, Heart Disease, Renal Disease Maternal Family History: Family History (Last Reviewed 04/20/18 @ 11:02 by Bessy Lr) Unknown No problems noted. History Items: Heart Disease Paternal Family History: Family History (Last Reviewed 04/20/18 @ 11:02 by Bessy Lr) Unknown No problems noted. History Items: Heart Disease Smoking Status: Former smoker Review of Systems - Review of Systems General: Denies: Fever HEENT: Denies: Vision Change, Hearing Changes, Ear Pain Cardiovascular: Reports: Peripheral Edema. Denies: Chest Discomfort, Chest Pressure, Shortness of Breath at Rest, PND Respiratory: Denies: Cough Gastrointestinal: Denies: Indigestion Genitourinary: Denies: Dysuria Skin: Denies: Rash Neurological: Denies: Dizziness, Vertigo Psychiatric: Denies: Anxiety Objective: Vital Signs Temp Pulse Resp BP Pulse Ox 98.0 F 73 18 147/82 H 94 06/21/18 10:29 06/21/18 12:00 06/21/18 12:00 06/21/18 12:00 06/21/18 12:00 Oxygen Flow Rate (L/min) 2 Oxygen Delivery Method Nasal Cannula Weight: 156 lb 1.396 oz Body Mass Index (BMI) 24.4 Finger Stick Blood Glucose 111 General: Healthy Appearing, Oriented x 3 HEENT: Atraumatic Oral: Moist Mucosa Neck: Supple Lungs: Diminished Zachary Bases - Minimal crackles at both bases Cardiovascular: Regular Rhythm, Normal S1, Normal S2 Abdomen: Soft Extremities: No Cyanosis, Bilateral Edema +2 Musculoskeletal: No Erythema Skin: No Rashes Psych/Mental Status: Appropriate 06/21/18 06:45: WBC 8.9, RBC 3.34 L, Hgb 10.3 L, Hct 30.6 L, MCV 91.6, MCH 30.8, MCHC 33.7, RDW 17.2 H, RDW Differential 56.1 H, Plt Count 209, MPV 10.5, Immature Gran % (Auto) 0.100, Neut % (Auto) 81.9 H, Lymph % (Auto) 11.8 L, [place] % (Auto) 4.2, Eos % (Auto) 1.9, Baso % (Auto) 0.1, Absolute Neuts (auto) 7.3, Total Counted Not Reportable 06/21/18 06:45: PT 17.0 H, INR 1.4, APTT 36.0 06/21/18 06:45: Sodium 139, Potassium 4.8, Chloride 106, Carbon Dioxide 22.0, Anion Gap 11, BUN 82 H, Creatinine 4.43 H, Est GFR (MDRD) Af Amer 17 L, Est GFR (MDRD) Non-Af 14 L, BUN/Creatinine Ratio 18.5, Glucose 113 H, Calcium 8.7, Troponin I 0.123 H 06/21/18 06:45: Total Bilirubin 0.70, Direct Bilirubin 0.30 06/21/18 06:45: Phosphorus 6.3 H 06/21/18 07:15: B-Natriuretic Peptide > 5000.0 H 06/21/18 07:15: Lactic Acid 1.6 06/21/18 09:18: Urine Color Yellow, Urine Clarity Clear, Urine pH 6.0, Ur Specific [place] 1.015, Urine Protein 100 H, Urine Glucose (UA) Normal, Urine Ketones Negative, Urine Occult Blood 50 H, Urine Nitrite Negative, Urine Bilirubin Negative, Urine Urobilinogen Normal, Ur Leukocyte Esterase 25 H, Urine RBC 0-5 SEEN, Urine WBC 0-5 SEEN 06/21/18 10:02: Troponin I 0.124 H Rhythm: Normal sinus rhythm EKG: Normal sinus rhythm, left bundle branch block ECHO: Ejection fraction is 25%, severe mitral regurgitation, severe pulmonary hypertension, stage III diastolic dysfunction. Stress Test: Cardiac Cath: PCI: CT Surgery: Holter monitor: EPS: PPM: CXR: Chest CT Scan: Assessment/Plan 1. Congestive heart failure: Acute on chronic systolic and diastolic congestive heart failure. Patient's presentation was more due to hypoglycemia. He seems comfortable at this time. I agree that hemodialysis will be reasonable in this patient to maintain volume status. I will discontinue the Cardizem in view of his severe LV dysfunction and restart his hydralazine. 2. Coronary artery disease: He appears compensated from a CAD standpoint at this time. Continue his current medications. He is not on a statin because of intolerance in the past to multiple statins. Continue dual antiplatelet therapy. 3. Hypertension: I will discontinue his Cardizem and restart his hydralazine. We can adjust the dose based on his blood pressure response. If required we can add Norvasc.
--- NOTE | 2018-06-21 13:07 | CON.PCM_ITS ---
Problem List (1) Acute on chronic systolic (congestive) heart failure Status: Acute Reason for Consult Date of Consultation: 06/21/18 History of Present Illness: The patient is a 73 year old M with multiple comorbidities including CKD stage V , diabetes mellitus type 2, coronary artery disease with previous CABG and subsequent PCI with ischemic cardiomyopathy with known ejection fraction of 25% was brought to the emergency department by the with decreased level of 7 serial and patient slurring his speech. Per patient's patient had apparently refused to eat over the past couple of days. On the day of her presentation patient's felt patient was having a stroke the EMS squad was called who upon arrival found patient blood glucose to be in the 30s. Treatment was initiated on the field and patient brought to the emergency department. In the ED patient underwent subsequent evaluation with imaging studies which failed to demonstrate any acute CVA. Chest x-ray demonstrated small bilateral pleural effusion patient was found to have markedly elevated proBNP she was made to admit patient to a monitored bed for subsequent management. Patient is oriented x3 but is not a very good historian. He was seen in the cardiology office yesterday and did not have any shortness of breath at that time. He denies any shortness of breath to me today as well. He was started on a Lasix drip about 1 hour ago. He has been evaluated by nephrology and will likely start dialysis while he is an inpatient. He denies any chest pain, orthopnea. Some details of his cardiac history are as follows: He underwent a repeat left heart catheterization and graft angiography by Dr. Barnard on 09/06/17 which showed severe three-vessel coronary artery disease, calcified left main, patent left circumflex stents, occluded saphenous vein graft to the left circumflex, patent saphenous vein graft to the RCA with a patent stent in the middle portion of the graft, patent CHARLES to LAD, and moderate to severe global LV dysfunction w ith an EF around 30%. He was also found to be extremely hypertensive during the heart cath in the 180s. He was then transferred to [facility] where he underwent successful cutting balloon angioplasty and stenting of his left main receiving a 4.0X8 Promus Synergy stent by Dr. Bustos with an excellent result. He then underwent AICD placement with Dr. Desouza at [facility]. In May 2018 he was found to have patent stent in the SVG to RCA but had a stenosis distal to the stent which was treated with 3. 0 x 16 mm Promus drug- eluting stent. Patient was supposed to be on nitrate and hydralazine but states that somebody told him to stop hydralazine yesterday. He does not recall any reaction to hydralazine. Dr. Barnard's office note from yesterday does not me ntion stopping hydralazine as well. Past Medical History Allergies/Adverse Reactions: Allergies atorvastatin calcium [From Lipitor] Allergy (Verified 06/21/18 06:50) Pain in joints verapamil [From Covera-HS] Allergy (Verified 06/21/18 06:50) passes out lisinopril Adverse Reaction (Verified 06/21/18 06:50) Other muscle pain Niacin Preparations Adverse Reaction (Verified 06/21/18 06:50) Pain in joints Cholesterol Meds Adverse Reaction (Uncoded 06/21/18 06:50) Pain in joints Home Medications: Ambulatory Orders Medication Instructions Recorded Insulin Glargine,Hum.rec.anlog 14 unit SQ BREAKFAST 08/20/15 [Lantus] Clopidogrel Bisulfate [Plavix] 75 mg PO DAILY #0 12/04/15 Carvedilol [Coreg (Beta Pedro)] 25 mg PO BID #90 tab 09/08/17 Aspirin E.C. [Ecotrin] 81 mg PO DAILY 11/07/17 Venlafaxine HCl [Venlafaxine HCl 150 mg PO DAILY 11/07/17 ER] allopurinol 100 mg tablet 100 mg PO DAILY tab 11/21/17 diltiazem CD 120 mg 120 mg PO DAILY 11/21/17 capsule,extended release 24 hr pantoprazole 40 mg tablet,delayed 40 mg PO BIDAC 11/21/17 release isosorbide mononitrate ER 30 mg 30 mg PO DAILY 11/27/17 tablet,extended release 24 hr calcitriol 0.25 mcg capsule 0.25 mcg PO DAILY cap 04/20/18 Sucralfate [Carafate] 1 gm PO BIDCM 06/02/18 Nitroglycerin (INPATIENT USE) 0.4 mg SUBLINGUAL Q5M PRN #1 bottle 06/07/18 [Nitrostat] Mirtazapine [Remeron] 15 mg PO QHS 06/21/18 Past Medical History (Chronic Problems): Chronic Problems (Last Reviewed 06/21/18 @ 10:38 by Rico Ackerman MD) Anemia in chronic kidney disease (CKD) (Chronic) Stented coronary artery (Chronic 06/06/18) Mildly elevated troponin: cutting balloon angioplasty ([place] Cutting Balloon 3.0 X 10 mm) and ALBERTO (Synergy 4.0 X 8 mm) placed from proximal to mid left main per Dr. Bustos, [facility] 11/08/2017 Triple vessel CAD of the LAD, RCA, LCX Critical lesion in SVG to RCA distal to previous stent Successful PTCA/ALBERTO distal SVG to RCA with filter wire assistance with a 3.0 x 16 Promus Synergy, post dilated with a 3.0 x 8 NC Balloon; 85%-->0%, no dissection or distal embolization. No additional PCI of [place] RCA or LCX ISR done today due to CRI. 06/06/[address] Barnard @ [facility] History of right and left heart catheterization (Chronic 11/08/17) Per Dr. Bustos, [facility]>followed by cutting ballon angioplasty and ALBERTO to left main CAD (coronary artery disease) (Chronic) S/P PTCA (percutaneous transluminal coronary angioplasty) (Chronic) Implantable cardioverter-defibrillator (ICD) in situ (Chronic) Ischemic cardiomyopathy (Chronic) 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 Buitrago @ [facility] History of left heart catheterization (Chronic 09/06/17) Atherosclerotic heart disease of [place] coronary artery with other forms of angina pectoris (Chronic) CHARLES to LAD, SVG to RCA and SVG to CX per Dr. Buitrago @ [facility] 09/27/06. Mildly elevated troponin: cutting balloon angioplasty ([place] Cutting Balloon 3.0 X 10 mm) and ALBERTO (Synergy 4.0 X 8 mm) placed from proximal to mid left main per Dr. Bustos, [facility] 11/08/17 DM2 (diabetes mellitus, type 2) (Chronic) CKD (chronic kidney disease), stage IV (Chronic) History of pulmonary embolism (Chronic) Provoked History of hypertension (Chronic) History of hyperlipidemia (Chronic) History of gout (Chronic) 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) Surgical History: - - History of ruptured bowel status post colostomy, PCI, CABG, appendectomy, hernia repair. - *Family History Sibling Family History: Family History (Last Reviewed 04/20/18 @ 11:02 by Bessy Lr) Unknown No problems noted. History Items: Diabetes, Heart Disease, Renal Disease Maternal Family History: Family History (Last Reviewed 04/20/18 @ 11:02 by Bessy Lr) Unknown No problems noted. History Items: Heart Disease Paternal Family History: Family History (Last Reviewed 04/20/18 @ 11:02 by Bessy Lr) Unknown No problems noted. History Items: Heart Disease Smoking Status: Former smoker Review of Systems - Review of Systems General: Denies: Fever HEENT: Denies: Vision Change, Hearing Changes, Ear Pain Cardiovascular: Reports: Peripheral Edema. Denies: Chest Discomfort, Chest Pressure, Shortness of Breath at Rest, PND Respiratory: Denies: Cough Gastrointestinal: Denies: Indigestion Genitourinary: Denies: Dysuria Skin: Denies: Rash Neurological: Denies: Dizziness, Vertigo Psychiatric: Denies: Anxiety Objective: Vital Signs Temp Pulse Resp BP Pulse Ox 98.0 F 73 18 147/82 H 94 06/21/18 10:29 06/21/18 12:00 06/21/18 12:00 06/21/18 12:00 06/21/18 12:00 Oxygen Flow Rate (L/min) 2 Oxygen Delivery Method Nasal Cannula Weight: 156 lb 1.396 oz Body Mass Index (BMI) 24.4 Finger Stick Blood Glucose 111 General: Healthy Appearing, Oriented x 3 HEENT: Atraumatic Oral: Moist Mucosa Neck: Supple Lungs: Diminished Zachary Bases - Minimal crackles at both bases Cardiovascular: Regular Rhythm, Normal S1, Normal S2 Abdomen: Soft Extremities: No Cyanosis, Bilateral Edema +2 Musculoskeletal: No Erythema Skin: No Rashes Psych/Mental Status: Appropriate 06/21/18 06:45: WBC 8.9, RBC 3.34 L, Hgb 10.3 L, Hct 30.6 L, MCV 91.6, MCH 30.8, MCHC 33.7, RDW 17.2 H, RDW Differential 56.1 H, Plt Count 209, MPV 10.5, Immature Gran % (Auto) 0.100, Neut % (Auto) 81.9 H, Lymph % (Auto) 11.8 L, [place] % (Auto) 4.2, Eos % (Auto) 1.9, Baso % (Auto) 0.1, Absolute Neuts (auto) 7.3, Total Counted Not Reportable 06/21/18 06:45: PT 17.0 H, INR 1.4, APTT 36.0 06/21/18 06:45: Sodium 139, Potassium 4.8, Chloride 106, Carbon Dioxide 22.0, Anion Gap 11, BUN 82 H, Creatinine 4.43 H, Est GFR (MDRD) Af Amer 17 L, Est GFR (MDRD) Non-Af 14 L, BUN/Creatinine Ratio 18.5, Glucose 113 H, Calcium 8.7, Troponin I 0.123 H 06/21/18 06:45: Total Bilirubin 0.70, Direct Bilirubin 0.30 06/21/18 06:45: Phosphorus 6.3 H 06/21/18 07:15: B-Natriuretic Peptide > 5000.0 H 06/21/18 07:15: Lactic Acid 1.6 06/21/18 09:18: Urine Color Yellow, Urine Clarity Clear, Urine pH 6.0, Ur Specific [place] 1.015, Urine Protein 100 H, Urine Glucose (UA) Normal, Urine Ketones Negative, Urine Occult Blood 50 H, Urine Nitrite Negative, Urine Bilirubin Negative, Urine Urobilinogen Normal, Ur Leukocyte Esterase 25 H, Urine RBC 0-5 SEEN, Urine WBC 0-5 SEEN 06/21/18 10:02: Troponin I 0.124 H Rhythm: Normal sinus rhythm EKG: Normal sinus rhythm, left bundle branch block ECHO: Ejection fraction is 25%, severe mitral regurgitation, severe pulmonary hypertension, stage III diastolic dysfunction. Stress Test: Cardiac Cath: PCI: CT Surgery: Holter monitor: EPS: PPM: CXR: Chest CT Scan: Assessment/Plan 1. Congestive heart failure: Acute on chronic systolic and diastolic congestive heart failure. Patient's presentation was more due to hypoglycemia. He seems comfortable at this time. I agree that hemodialysis will be reasonable in this patient to maintain volume status. I will discontinue the Cardizem in view of his severe LV dysfunction and restart his hydralazine. 2. Coronary artery disease: He appears compensated from a CAD standpoint at this time. Continue his current medications. He is not on a statin because of intolerance in the past to multiple statins. Continue dual antiplatelet therapy. 3. Hypertension: I will discontinue his Cardizem and restart his hydralazine. We can adjust the dose based on his blood pressure response. If required we can add Norvasc.
[2018-06-21 14:26] LABS: Bedside Glucose 105 mg/dL (70-110)
[2018-06-21] MEDS: Cefazolin 2 GM in 0.9% Normal Saline 100 ML IV (15:22)
--- NOTE | 2018-06-21 15:24 | PCM.CONS.GEN ---
Problem List (1) Chronic renal failure, stage 5 Status: Chronic Reason for Consult Date of Consultation: 06/21/18 History of Present Illness: The patient is a 73 year old M who has been asked to see today by Dr. Tracey Royal for placement of tunneled dialysis catheters. A written copy of my surgical consult recommendations will be available in the electronic medical records. The patient was just admitted with acute uremic symptoms and anorexia shortness of breath. He previously by report has refused dialysis access. He now agrees to pursuing intervention. He apparently has a complicated history of coronary bypass surgery complicated by colon resection requiring now a permanent end descending colostomy. He describes a ventral hernia repair with mesh. He describes a pacemaker defibrillator in the left subclavian. He has multiple medical problems as documented. He denies having previously had tunneled dialysis catheters but he is not completely aware of his medical history. Past Medical History Past Medical History (Chronic Problems): Chronic Problems (Last Reviewed 06/21/18 @ 10:38 by Rico Ackerman MD) Chronic renal failure, stage 5 (Chronic) Anemia in chronic kidney disease (CKD) (Chronic) Stented coronary artery (Chronic 06/06/18) Mildly elevated troponin: cutting balloon angioplasty ([place] Cutting Balloon 3.0 X 10 mm) and ALBERTO (Synergy 4.0 X 8 mm) placed from proximal to mid left main per Dr. Bustos, [facility] 11/08/2017 Triple vessel CAD of the LAD, RCA, LCX Critical lesion in SVG to RCA distal to previous stent Successful PTCA/ALBERTO distal SVG to RCA with filter wire assistance with a 3.0 x 16 Promus Synergy, post dilated with a 3.0 x 8 NC Balloon; 85%-->0%, no dissection or distal embolization. No additional PCI of [place] RCA or LCX ISR done today due to CRI. 06/06/[address] Barnard @ [facility] History of right and left heart catheterization (Chronic 11/08/17) Per Dr. Bustos, [facility]>followed by cutting ballon angioplasty and ALBERTO to left main CAD (coronary artery disease) (Chronic) S/P PTCA (percutaneous transluminal coronary angioplasty) (Chronic) Implantable cardioverter-defibrillator (ICD) in situ (Chronic) Ischemic cardiomyopathy (Chronic) 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 Buitrago @ [facility] History of left heart catheterization (Chronic 09/06/17) Atherosclerotic heart disease of [place] coronary artery with other forms of angina pectoris (Chronic) CHARLES to LAD, SVG to RCA and SVG to CX per Dr. Buitrago @ [facility] 09/27/06. Mildly elevated troponin: cutting balloon angioplasty ([place] Cutting Balloon 3.0 X 10 mm) and ALBERTO (Synergy 4.0 X 8 mm) placed from proximal to mid left main per Dr. 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 Buitrago @ [facility] 09/27/06. Mildly elevated troponin: cutting balloon angioplasty ([place] Cutting Balloon 3.0 X 10 mm) and ALBERTO (Synergy 4.0 X 8 mm) placed from proximal to mid left main per Dr. 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) Z77.098 Allergies atorvastatin calcium [From Lipitor] Allergy (Verified 06/21/18 06:50) Pain in joints verapamil [From Covera-HS] Allergy (Verified 06/21/18 06:50) passes out lisinopril Adverse Reaction (Verified 06/21/18 06:50) Other muscle pain Niacin Preparations Adverse Reaction (Verified 06/21/18 06:50) Pain in joints Cholesterol Meds Adverse Reaction (Uncoded 06/21/18 06:50) Pain in joints Home Medications: Ambulatory Orders Medication Instructions Recorded Insulin Glargine,Hum.rec.anlog 14 unit SQ BREAKFAST 08/20/15 [Lantus] Clopidogrel Bisulfate [Plavix] 75 mg PO DAILY #0 12/04/15 Carvedilol [Coreg (Beta Pedro)] 25 mg PO BID #90 tab 09/08/17 Aspirin E.C. [Ecotrin] 81 mg PO DAILY 11/07/17 Venlafaxine HCl [Venlafaxine HCl 150 mg PO DAILY 11/07/17 ER] allopurinol 100 mg tablet 100 mg PO DAILY tab 11/21/17 diltiazem CD 120 mg 120 mg PO DAILY 11/21/17 capsule,extended release 24 hr pantoprazole 40 mg tablet,delayed 40 mg PO BIDAC 11/21/17 release isosorbide mononitrate ER 30 mg 30 mg PO DAILY 11/27/17 tablet,extended release 24 hr calcitriol 0.25 mcg capsule 0.25 mcg PO DAILY cap 04/20/18 Sucralfate [Carafate] 1 gm PO BIDCM 06/02/18 Nitroglycerin (INPATIENT USE) 0.4 mg SUBLINGUAL Q5M PRN #1 bottle 06/07/18 [Nitrostat] Mirtazapine [Remeron] 15 mg PO QHS 06/21/18 Surgical History: Surgical History (Last Reviewed 06/21/18 @ 10:38 by Rcio Ackerman MD) Stented coronary artery (Chronic) Onset Date: 06/06/18 Z95.5 Mildly elevated troponin: cutting balloon angioplasty ([place] Cutting Balloon 3.0 X 10 mm) and ALBERTO (Synergy 4.0 X 8 mm) placed from proximal to mid left main per Dr. Bustos, [facility] 11/08/2017 Triple vessel CAD of the LAD, RCA, LCX Critical lesion in SVG to RCA distal to previous stent Successful PTCA/ALBERTO distal SVG to RCA with filter wire assistance with a 3.0 x 16 Promus Synergy, post dilated with a 3.0 x 8 [place] Balloon; 85%-->0%, no dissection or distal embolization. No additional PCI of [place] RCA or LCX ISR done today due to CRI. 06/06/[address] Barnard @ [facility] History of right and left heart catheterization (Chronic) Onset Date: 11/08/[address] Bustos, [facility]>followed by cutting ballon angioplasty and ALBERTO to left main S/P PTCA (percutaneous transluminal coronary angioplasty) (Chronic) Z98.61 History of coronary artery bypass graft x 3 (Chronic) Onset Date: 09/27/06 Z95.1 CHARLES to LAD, SVG to RCA and SVG to CX per Dr. Buitrago @ [facility] History of left heart catheterization (Chronic) Onset Date: 09/06/17 Z98.890 History of colostomy (Chronic) Z98.890 Surgical History: - - History of ruptured bowel status post colostomy, PCI, CABG, appendectomy, hernia repair. Smoking Status: Former smoker - *Family History Sibling Family History: Family History (Last Reviewed 04/20/18 @ 11:02 by Bessy Lr) Unknown No problems noted. History Items: Diabetes, Heart Disease, Renal Disease Maternal Family History: Family History (Last Reviewed 04/20/18 @ 11:02 by Bessy Lr) Unknown No problems noted. History Items: Heart Disease Paternal Family History: Family History (Last Reviewed 04/20/18 @ 11:02 by Bessy Lr) Unknown No problems noted. History Items: Heart Disease Review of Systems Constitutional: Reports: Anorexia Eyes: Denies: Blurred vision HEENT: Denies: Difficulty Swallowing Respiratory: Reports: Shortness of Breath Gastrointestinal: Denies: Abdominal Pain Patient Problems: Active and Suspected Problems (Last Reviewed 06/21/18 @ 10:38 by Rico Ackerman MD) Acute encephalopathy (Acute) Hypoglycemia (Acute) - Physical Exam General: Alert HEENT: Atraumatic Neck: Supple Lungs: Clear to auscultation, - - The patient is taking very deep intermittent breaths with poor air excursion Pacemaker defibrillator left chest Cardiovascular: - - Distant heart sounds Abdomen: - - Soft, stoma left midabdomen, nontender Extremities: - - IVs are located in both antecubital spaces where potential fistula would be an opportunity Musculoskeletal: Muscle Wasting Lymphatic: No Cervical, Supraclavicular, or Inguinal Adenopathy Psych/Mental Status: Appropriate Vital Signs Temp Pulse Resp BP Pulse Ox 98.0 F 74 21 H 145/86 H 95 06/21/18 10:29 06/21/18 13:00 06/21/18 13:00 06/21/18 13:00 06/21/18 13:00 Oxygen Flow Rate (L/min) 2 Oxygen Delivery Method Nasal Cannula Weight: 156 lb 1.396 oz Body Mass Index (BMI) 24.4 Finger Stick Blood Glucose 111 Laboratory Tests Past 24 Hrs 06/21/18 06/21/18 06/21/18 06:45 06:45 06:45 WBC 8.9 RBC 3.34 L Hgb 10.3 L Hct 30.6 L MCV 91.6 MCH 30.8 MCHC 33.7 RDW 17.2 H RDW Differential 56.1 H Plt Count 209 MPV 10.5 Immature Gran % (Auto) 0.100 Neut % (Auto) 81.9 H Lymph % (Auto) 11.8 L [place] % (Auto) 4.2 Eos % (Auto) 1.9 Baso % (Auto) 0.1 Absolute Neuts (auto) 7.3 Absolute Lymphs (auto) 1.05 Total Counted Not Reportable PT 17.0 H INR 1.4 APTT 36.0 Sodium 139 Potassium 4.8 Chloride 106 Carbon Dioxide 22.0 Anion Gap 11 BUN 82 H Creatinine 4.43 H Estim Creat Clear Calc 13.68 Est GFR (MDRD) Af Amer 17 L Est GFR (MDRD) Non-Af 14 L BUN/Creatinine Ratio 18.5 Glucose 113 H Lactic Acid Calcium 8.7 Phosphorus Total Bilirubin Direct Bilirubin AST ALT Alkaline Phosphatase Ammonia Total Creatine Kinase Troponin I 0.123 H B-Natriuretic Peptide Total Protein Albumin Globulin Urine Color Urine Clarity Urine pH Ur Specific [place] Urine Protein Urine Glucose (UA) Urine Ketones Urine Occult Blood Urine Nitrite Urine Bilirubin Urine Urobilinogen Ur Leukocyte Esterase Urine RBC Urine WBC Ur Squamous Epith Cells Urine Bacteria Urine Mucus Urine Opiates Screen Urine Methadone Screen Ur Barbiturates Screen Ur Phencyclidine Scrn Ur Amphetamines Screen U Methamphetamin-MDMA U Benzodiazepines Scrn Urine Cocaine Screen U Cannabinoids Screen Ur Drug Screen Comment Ethyl Alcohol 06/21/18 06/21/1819 06:45 06:45 06:45 WBC RBC Hgb Hct MCV MCH MCHC RDW RDW Differential Plt Count MPV Immature Gran % (Auto) Neut % (Auto) Lymph % (Auto) [place] % (Auto) Eos % (Auto) Baso % (Auto) Absolute Neuts (auto) Absolute Lymphs (auto) Total Counted PT INR APTT Sodium Potassium Chloride Carbon Dioxide Anion Gap BUN Creatinine Estim Creat Clear Calc Est GFR (MDRD) Af Amer Est GFR (MDRD) Non-Af BUN/Creatinine Ratio Glucose Lactic Acid Calcium Phosphorus Total Bilirubin 0.70 Direct Bilirubin 0.30 AST 121 H ALT 67 H Alkaline Phosphatase 124 H Ammonia Total Creatine Kinase 2618 H Troponin I B-Natriuretic Peptide Total Protein 6.5 Albumin 3.4 Globulin 3.1 Urine Color Urine Clarity Urine pH Ur Specific [place] Urine Protein Urine Glucose (UA) Urine Ketones Urine Occult Blood Urine Nitrite Urine Bilirubin Urine Urobilinogen Ur Leukocyte Esterase Urine RBC Urine WBC Ur Squamous Epith Cells Urine Bacteria Urine Mucus Urine Opiates Screen Urine Methadone Screen Ur Barbiturates Screen Ur Phencyclidine Scrn Ur Amphetamines Screen U Methamphetamin-MDMA U Benzodiazepines Scrn Urine Cocaine Screen U Cannabinoids Screen Ur Drug Screen Comment Ethyl Alcohol < 3.0 06/21/18 06/21/18 06/21/18 06:45 07:15 07:15 WBC RBC Hgb Hct MCV MCH MCHC RDW RDW Differential Plt Count MPV Immature Gran % (Auto) Neut % (Auto) Lymph % (Auto) [place] % (Auto) Eos % (Auto) Baso % (Auto) Absolute Neuts (auto) Absolute Lymphs (auto) Total Counted PT INR APTT Sodium Potassium Chloride Carbon Dioxide Anion Gap BUN Creatinine Estim Creat Clear Calc Est GFR (MDRD) Af Amer Est GFR (MDRD) Non-Af BUN/Creatinine Ratio Glucose Lactic Acid 1.6 Calcium Phosphorus 6.3 H Total Bilirubin Direct Bilirubin AST ALT Alkaline Phosphatase Ammonia Cancelled Total Creatine Kinase Troponin I B-Natriuretic Peptide > 5000.0 H Total Protein Albumin Globulin Urine Color Urine Clarity Urine pH Ur Specific [place] Urine Protein Urine Glucose (UA) Urine Ketones Urine Occult Blood Urine Nitrite Urine Bilirubin Urine Urobilinogen Ur Leukocyte Esterase Urine RBC Urine WBC Ur Squamous Epith Cells Urine Bacteria Urine Mucus Urine Opiates Screen Urine Methadone Screen Ur Barbiturates Screen Ur Phencyclidine Scrn Ur Amphetamines Screen U Methamphetamin-MDMA U Benzodiazepines Scrn Urine Cocaine Screen U Cannabinoids Screen Ur Drug Screen Comment Ethyl Alcohol 06/21/18 06/21/18 06/21/18 07:15 09:18 09:18 WBC RBC Hgb Hct MCV MCH MCHC RDW RDW Differential Plt Count MPV Immature Gran % (Auto) Neut % (Auto) Lymph % (Auto) [place] % (Auto) Eos % (Auto) Baso % (Auto) Absolute Neuts (auto) Absolute Lymphs (auto) Total Counted PT INR APTT Sodium Potassium Chloride Carbon Dioxide Anion Gap BUN Creatinine Estim Creat Clear Calc Est GFR (MDRD) Af Amer Est GFR (MDRD) Non-Af BUN/Creatinine Ratio Glucose Lactic Acid Calcium Phosphorus Total Bilirubin Direct Bilirubin AST ALT Alkaline Phosphatase Ammonia < 10.0 L Total Creatine Kinase Troponin I B-Natriuretic Peptide Total Protein Albumin Globulin Urine Color Yellow Urine Clarity Clear Urine pH 6.0 Ur Specific [place] 1.015 Urine Protein 100 H Urine Glucose (UA) Normal Urine Ketones Negative Urine Occult Blood 50 H Urine Nitrite Negative Urine Bilirubin Negative Urine Urobilinogen Normal Ur Leukocyte Esterase 25 H Urine RBC 0-5 SEEN Urine WBC 0-5 SEEN Ur Squamous Epith Cells 0 SEEN Urine Bacteria RARE Urine Mucus 0 SEEN Urine Opiates Screen NEGATIVE Urine Methadone Screen NEGATIVE Ur Barbiturates Screen NEGATIVE Ur Phencyclidine Scrn NEGATIVE Ur Amphetamines Screen NEGATIVE U Methamphetamin-MDMA NEGATIVE U Benzodiazepines Scrn NEGATIVE Urine Cocaine Screen NEGATIVE U Cannabinoids Screen NEGATIVE Ur Drug Screen Comment Ethyl Alcohol 06/21/18 06/21/18 10:02 12:50 WBC RBC Hgb Hct MCV MCH MCHC RDW RDW Differential Plt Count MPV Immature Gran % (Auto) Neut % (Auto) Lymph % (Auto) [place] % (Auto) Eos % (Auto) Baso % (Auto) Absolute Neuts (auto) Absolute Lymphs (auto) Total Counted PT INR APTT Sodium Potassium Chloride Carbon Dioxide Anion Gap BUN Creatinine Estim Creat Clear Calc Est GFR (MDRD) Af Amer Est GFR (MDRD) Non-Af BUN/Creatinine Ratio Glucose Lactic Acid Calcium Phosphorus Total Bilirubin Direct Bilirubin AST ALT Alkaline Phosphatase Ammonia Total Creatine Kinase Troponin I 0.124 H 0.139 H B-Natriuretic Peptide Total Protein Albumin Globulin Urine Color Urine Clarity Urine pH Ur Specific [place] Urine Protein Urine Glucose (UA) Urine Ketones Urine Occult Blood Urine Nitrite Urine Bilirubin Urine Urobilinogen Ur Leukocyte Esterase Urine RBC Urine WBC Ur Squamous Epith Cells Urine Bacteria Urine Mucus Urine Opiates Screen Urine Methadone Screen Ur Barbiturates Screen Ur Phencyclidine Scrn Ur Amphetamines Screen U Methamphetamin-MDMA U Benzodiazepines Scrn Urine Cocaine Screen U Cannabinoids Screen Ur Drug Screen Comment Ethyl Alcohol POC Glucose 06/21/18 06/21/18 06/21/18 14:20 11:14 08:17 POC Glucose 105 104 111 H 06/21/18 06:49 POC Glucose 84 Assessment/Plan All Active Problems (Last Reviewed 06/21/18 @ 10:38 by Rico Ackerman MD) Acute encephalopathy (Acute) Hypoglycemia (Acute) Community acquired pneumonia (Acute) Acute on chronic systolic (congestive) heart failure (Acute) Chest pain (Resolved) NSTEMI (non-ST elevated myocardial infarction) (Resolved 06/05/18) I concur that tunneled dialysis catheters would be appropriate. Unfortunately the patient's left subclavian is occupied by pacemaker defibrillator wires. His history is unclear but clearly he has had a complicated course related to his coronary bypass surgery with reports of bowel resection perforation and now permanent and colostomy. I discussed with the patient plans hopefully for right internal jugular tunneled double-lumen dialysis catheter and I discussed the technique, benefits, risks and alternatives. If not possible then I will inspect potential for placement of a left internal jugular but this would be clearly less desirable because of the pacemaker wires. He has had an operative to ask and have questions answered. We will proceed was noted. CC: Dr. Tracey Concepcion M.D., F.A.C.S.
[2018-06-21 15:25] LABS: Bedside Glucose 92 mg/dL (70-110)
--- NOTE | 2018-06-21 15:28 | CON.PCM_ITS ---
Problem List (1) Chronic renal failure, stage 5 Status: Chronic Reason for Consult Date of Consultation: 06/21/18 History of Present Illness: The patient is a 73 year old M who has been asked to see today by Dr. Tracey Royal for placement of tunneled dialysis catheters. A written copy of my surgical consult recommendations will be available in the electronic medical records. The patient was just admitted with acute uremic symptoms and anorexia shortness of breath. He previously by report has refused dialysis access. He now agrees to pursuing intervention. He apparently has a complicated history of coronary bypass surgery complicated by colon resection requiring now a permanent end descending colostomy. He describes a ventral hernia repair with mesh. He describes a pacemaker defibrillator in the left subclavian. He has multiple medical problems as documented. He denies having previously had tunneled dialysis catheters but he is not completely aware of his medical history. Past Medical History Past Medical History (Chronic Problems): Chronic Problems (Last Reviewed 06/21/18 @ 10:38 by Rico Ackerman MD) Chronic renal failure, stage 5 (Chronic) Anemia in chronic kidney disease (CKD) (Chronic) Stented coronary artery (Chronic 06/06/18) Mildly elevated troponin: cutting balloon angioplasty ([place] Cutting Balloon 3.0 X 10 mm) and ALBERTO (Synergy 4.0 X 8 mm) placed from proximal to mid left main per Dr. Bustos, [facility] 11/08/2017 Triple vessel CAD of the LAD, RCA, LCX Critical lesion in SVG to RCA distal to previous stent Successful PTCA/ALBERTO distal SVG to RCA with filter wire assistance with a 3.0 x 16 Promus Synergy, post dilated with a 3.0 x 8 NC Balloon; 85%-->0%, no dissection or distal embolization. No additional PCI of grindstone RCA or LCX ISR done today due to CRI. 06/06/[address] Barnard @ [facility] History of right and left heart catheterization (Chronic 11/08/17) Per Dr. Bustos, [facility]>followed by cutting ballon angioplasty and ALBERTO to left main CAD (coronary artery disease) (Chronic) S/P PTCA (percutaneous transluminal coronary angioplasty) (Chronic) Implantable cardioverter-defibrillator (ICD) in situ (Chronic) Ischemic cardiomyopathy (Chronic) 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 Buitrago @ [facility] 09/27/06. Mildly elevated troponin: cutting balloon angioplasty ([place] Cutting Balloon 3.0 X 10 mm) and ALBERTO (Synergy 4.0 X 8 mm) placed from proximal to mid left main per Dr. 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 Buitrago @ [facility] 09/27/06. Mildly elevated troponin: cutting balloon angioplasty ([place] Cutting Balloon 3.0 X 10 mm) and ALBERTO (Synergy 4.0 X 8 mm) placed from proximal to mid left main per Dr. 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) Z77.098 Allergies atorvastatin calcium [From Lipitor] Allergy (Verified 06/21/18 06:50) Pain in joints verapamil [From Covera-HS] Allergy (Verified 06/21/18 06:50) passes out lisinopril Adverse Reaction (Verified 06/21/18 06:50) Other muscle pain Niacin Preparations Adverse Reaction (Verified 06/21/18 06:50) Pain in joints Cholesterol Meds Adverse Reaction (Uncoded 06/21/18 06:50) Pain in joints Home Medications: Ambulatory Orders Medication Instructions Recorded Insulin Glargine,Hum.rec.anlog 14 unit SQ BREAKFAST 08/20/15 [Lantus] Clopidogrel Bisulfate [Plavix] 75 mg PO DAILY #0 12/04/15 Carvedilol [Coreg (Beta Pedro)] 25 mg PO BID #90 tab 09/08/17 Aspirin E.C. [Ecotrin] 81 mg PO DAILY 11/07/17 Venlafaxine HCl [Venlafaxine HCl 150 mg PO DAILY 11/07/17 ER] allopurinol 100 mg tablet 100 mg PO DAILY tab 11/21/17 diltiazem CD 120 mg 120 mg PO DAILY 11/21/17 capsule,extended release 24 hr pantoprazole 40 mg tablet,delayed 40 mg PO BIDAC 11/21/17 release isosorbide mononitrate ER 30 mg 30 mg PO DAILY 11/27/17 tablet,extended release 24 hr calcitriol 0.25 mcg capsule 0.25 mcg PO DAILY cap 04/20/18 Sucralfate [Carafate] 1 gm PO BIDCM 06/02/18 Nitroglycerin (INPATIENT USE) 0.4 mg SUBLINGUAL Q5M PRN #1 bottle 06/07/18 [Nitrostat] Mirtazapine [Remeron] 15 mg PO QHS 06/21/18 Surgical History: Surgical History (Last Reviewed 06/21/18 @ 10:38 by Rico Ackerman MD) Stented coronary artery (Chronic) Onset Date: 06/06/18 Z95.5 Mildly elevated troponin: cutting balloon angioplasty ([place] Cutting Balloon 3.0 X 10 mm) and ALBERTO (Synergy 4.0 X 8 mm) placed from proximal to mid left main per Dr. Bustos, [facility] 11/08/2017 Triple vessel CAD of the LAD, RCA, LCX Critical lesion in SVG to RCA distal to previous stent Successful PTCA/ALBERTO distal SVG to RCA with filter wire assistance with a 3.0 x 16 Promus Synergy, post dilated with a 3.0 x 8 NC Balloon; 85%-->0%, no dissection or distal embolization. No additional PCI of grindstone RCA or LCX ISR done today due to CRI. 06/06/[address] Barnard @ [facility] History of right and left heart catheterization (Chronic) Onset Date: 11/08/[address] Bustos, [facility]>followed by cutting ballon angioplasty and ALBERTO to left main S/P PTCA (percutaneous transluminal coronary angioplasty) (Chronic) Z98.61 History of coronary artery bypass graft x 3 (Chronic) Onset Date: 09/27/06 Z95.1 CHARLES to LAD, SVG to RCA and SVG to CX per Dr. Buitrago @ [facility] History of left heart catheterization (Chronic) Onset Date: 09/06/17 Z98.890 History of colostomy (Chronic) Z98.890 Surgical History: - - History of ruptured bowel status post colostomy, PCI, CABG, appendectomy, hernia repair. Smoking Status: Former smoker - *Family History Sibling Family History: Family History (Last Reviewed 04/20/18 @ 11:02 by Bessy Lr) Unknown No problems noted. History Items: Diabetes, Heart Disease, Renal Disease Maternal Family History: Family History (Last Reviewed 04/20/18 @ 11:02 by Bessy Lr) Unknown No problems noted. History Items: Heart Disease Paternal Family History: Family History (Last Reviewed 04/20/18 @ 11:02 by Bessy Lr) Unknown No problems noted. History Items: Heart Disease Review of Systems Constitutional: Reports: Anorexia Eyes: Denies: Blurred vision HEENT: Denies: Difficulty Swallowing Respiratory: Reports: Shortness of Breath Gastrointestinal: Denies: Abdominal Pain Patient Problems: Active and Suspected Problems (Last Reviewed 06/21/18 @ 10:38 by Rico Ackerman MD) Acute encephalopathy (Acute) Hypoglycemia (Acute) - Physical Exam General: Alert HEENT: Atraumatic Neck: Supple Lungs: Clear to auscultation, - - The patient is taking very deep intermittent breaths with poor air excursion Pacemaker defibrillator left chest Cardiovascular: - - Distant heart sounds Abdomen: - - Soft, stoma left midabdomen, nontender Extremities: - - IVs are located in both antecubital spaces where potential fistula would be an opportunity Musculoskeletal: Muscle Wasting Lymphatic: No Cervical, Supraclavicular, or Inguinal Adenopathy Psych/Mental Status: Appropriate Vital Signs Temp Pulse Resp BP Pulse Ox 98.0 F 74 21 H 145/86 H 95 06/21/18 10:29 06/21/18 13:00 06/21/18 13:00 06/21/18 13:00 06/21/18 13:00 Oxygen Flow Rate (L/min) 2 Oxygen Delivery Method Nasal Cannula Weight: 156 lb 1.396 oz Body Mass Index (BMI) 24.4 Finger Stick Blood Glucose 111 Laboratory Tests Past 24 Hrs 06/21/18 06/21/18 06/21/18 06:45 06:45 06:45 WBC 8.9 RBC 3.34 L Hgb 10.3 L Hct 30.6 L MCV 91.6 MCH 30.8 MCHC 33.7 RDW 17.2 H RDW Differential 56.1 H Plt Count 209 MPV 10.5 Immature Gran % (Auto) 0.100 Neut % (Auto) 81.9 H Lymph % (Auto) 11.8 L Parke % (Auto) 4.2 Eos % (Auto) 1.9 Baso % (Auto) 0.1 Absolute Neuts (auto) 7.3 Absolute Lymphs (auto) 1.05 Total Counted Not Reportable PT 17.0 H INR 1.4 APTT 36.0 Sodium 139 Potassium 4.8 Chloride 106 Carbon Dioxide 22.0 Anion Gap 11 BUN 82 H Creatinine 4.43 H Estim Creat Clear Calc 13.68 Est GFR (MDRD) Af Amer 17 L Est GFR (MDRD) Non-Af 14 L BUN/Creatinine Ratio 18.5 Glucose 113 H Lactic Acid Calcium 8.7 Phosphorus Total Bilirubin Direct Bilirubin AST ALT Alkaline Phosphatase Ammonia Total Creatine Kinase Troponin I 0.123 H B-Natriuretic Peptide Total Protein Albumin Globulin Urine Color Urine Clarity Urine pH Ur Specific [employer] Urine Protein Urine Glucose (UA) Urine Ketones Urine Occult Blood Urine Nitrite Urine Bilirubin Urine Urobilinogen Ur Leukocyte Esterase Urine RBC Urine WBC Ur Squamous Epith Cells Urine Bacteria Urine Mucus Urine Opiates Screen Urine Methadone Screen Ur Barbiturates Screen Ur Phencyclidine Scrn Ur Amphetamines Screen U Methamphetamin-MDMA U Benzodiazepines Scrn Urine Cocaine Screen U Cannabinoids Screen Ur Drug Screen Comment Ethyl Alcohol 06/21/18 06/21/1819 06:45 06:45 06:45 WBC RBC Hgb Hct MCV MCH MCHC RDW RDW Differential Plt Count MPV Immature Gran % (Auto) Neut % (Auto) Lymph % (Auto) Parke % (Auto) Eos % (Auto) Baso % (Auto) Absolute Neuts (auto) Absolute Lymphs (auto) Total Counted PT INR APTT Sodium Potassium Chloride Carbon Dioxide Anion Gap BUN Creatinine Estim Creat Clear Calc Est GFR (MDRD) Af Amer Est GFR (MDRD) Non-Af BUN/Creatinine Ratio Glucose Lactic Acid Calcium Phosphorus Total Bilirubin 0.70 Direct Bilirubin 0.30 AST 121 H ALT 67 H Alkaline Phosphatase 124 H Ammonia Total Creatine Kinase 2618 H Troponin I B-Natriuretic Peptide Total Protein 6.5 Albumin 3.4 Globulin 3.1 Urine Color Urine Clarity Urine pH Ur Specific [employer] Urine Protein Urine Glucose (UA) Urine Ketones Urine Occult Blood Urine Nitrite Urine Bilirubin Urine Urobilinogen Ur Leukocyte Esterase Urine RBC Urine WBC Ur Squamous Epith Cells Urine Bacteria Urine Mucus Urine Opiates Screen Urine Methadone Screen Ur Barbiturates Screen Ur Phencyclidine Scrn Ur Amphetamines Screen U Methamphetamin-MDMA U Benzodiazepines Scrn Urine Cocaine Screen U Cannabinoids Screen Ur Drug Screen Comment Ethyl Alcohol < 3.0 06/21/18 06/21/18 06/21/18 06:45 07:15 07:15 WBC RBC Hgb Hct MCV MCH MCHC RDW RDW Differential Plt Count MPV Immature Gran % (Auto) Neut % (Auto) Lymph % (Auto) Parke % (Auto) Eos % (Auto) Baso % (Auto) Absolute Neuts (auto) Absolute Lymphs (auto) Total Counted PT INR APTT Sodium Potassium Chloride Carbon Dioxide Anion Gap BUN Creatinine Estim Creat Clear Calc Est GFR (MDRD) Af Amer Est GFR (MDRD) Non-Af BUN/Creatinine Ratio Glucose Lactic Acid 1.6 Calcium Phosphorus 6.3 H Total Bilirubin Direct Bilirubin AST ALT Alkaline Phosphatase Ammonia Cancelled Total Creatine Kinase Troponin I B-Natriuretic Peptide > 5000.0 H Total Protein Albumin Globulin Urine Color Urine Clarity Urine pH Ur Specific [employer] Urine Protein Urine Glucose (UA) Urine Ketones Urine Occult Blood Urine Nitrite Urine Bilirubin Urine Urobilinogen Ur Leukocyte Esterase Urine RBC Urine WBC Ur Squamous Epith Cells Urine Bacteria Urine Mucus Urine Opiates Screen Urine Methadone Screen Ur Barbiturates Screen Ur Phencyclidine Scrn Ur Amphetamines Screen U Methamphetamin-MDMA U Benzodiazepines Scrn Urine Cocaine Screen U Cannabinoids Screen Ur Drug Screen Comment Ethyl Alcohol 06/21/18 06/21/18 06/21/18 07:15 09:18 09:18 WBC RBC Hgb Hct MCV MCH MCHC RDW RDW Differential Plt Count MPV Immature Gran % (Auto) Neut % (Auto) Lymph % (Auto) Parke % (Auto) Eos % (Auto) Baso % (Auto) Absolute Neuts (auto) Absolute Lymphs (auto) Total Counted PT INR APTT Sodium Potassium Chloride Carbon Dioxide Anion Gap BUN Creatinine Estim Creat Clear Calc Est GFR (MDRD) Af Amer Est GFR (MDRD) Non-Af BUN/Creatinine Ratio Glucose Lactic Acid Calcium Phosphorus Total Bilirubin Direct Bilirubin AST ALT Alkaline Phosphatase Ammonia < 10.0 L Total Creatine Kinase Troponin I B-Natriuretic Peptide Total Protein Albumin Globulin Urine Color Yellow Urine Clarity Clear Urine pH 6.[address] [employer] 1.015 Urine Protein 100 H Urine Glucose (UA) Normal Urine Ketones Negative Urine Occult Blood 50 H Urine Nitrite Negative Urine Bilirubin Negative Urine Urobilinogen Normal Ur Leukocyte Esterase 25 H Urine RBC 0-5 SEEN Urine WBC 0-5 SEEN Ur Squamous Epith Cells 0 SEEN Urine Bacteria RARE Urine Mucus 0 SEEN Urine Opiates Screen NEGATIVE Urine Methadone Screen NEGATIVE Ur Barbiturates Screen NEGATIVE Ur Phencyclidine Scrn NEGATIVE Ur Amphetamines Screen NEGATIVE U Methamphetamin-MDMA NEGATIVE U Benzodiazepines Scrn NEGATIVE Urine Cocaine Screen NEGATIVE U Cannabinoids Screen NEGATIVE Ur Drug Screen Comment Ethyl Alcohol 06/21/18 06/21/18 10:02 12:50 WBC RBC Hgb Hct MCV MCH MCHC RDW RDW Differential Plt Count MPV Immature Gran % (Auto) Neut % (Auto) Lymph % (Auto) Parke % (Auto) Eos % (Auto) Baso % (Auto) Absolute Neuts (auto) Absolute Lymphs (auto) Total Counted PT INR APTT Sodium Potassium Chloride Carbon Dioxide Anion Gap BUN Creatinine Estim Creat Clear Calc Est GFR (MDRD) Af Amer Est GFR (MDRD) Non-Af BUN/Creatinine Ratio Glucose Lactic Acid Calcium Phosphorus Total Bilirubin Direct Bilirubin AST ALT Alkaline Phosphatase Ammonia Total Creatine Kinase Troponin I 0.124 H 0.139 H B-Natriuretic Peptide Total Protein Albumin Globulin Urine Color Urine Clarity Urine pH Ur Specific [employer] Urine Protein Urine Glucose (UA) Urine Ketones Urine Occult Blood Urine Nitrite Urine Bilirubin Urine Urobilinogen Ur Leukocyte Esterase Urine RBC Urine WBC Ur Squamous Epith Cells Urine Bacteria Urine Mucus Urine Opiates Screen Urine Methadone Screen Ur Barbiturates Screen Ur Phencyclidine Scrn Ur Amphetamines Screen U Methamphetamin-MDMA U Benzodiazepines Scrn Urine Cocaine Screen U Cannabinoids Screen Ur Drug Screen Comment Ethyl Alcohol POC Glucose 06/21/18 06/21/18 06/21/18 14:20 11:14 08:17 POC Glucose 105 104 111 H 06/21/18 06:49 POC Glucose 84 Assessment/Plan All Active Problems (Last Reviewed 06/21/18 @ 10:38 by Rico Ackerman MD) Acute encephalopathy (Acute) Hypoglycemia (Acute) Community acquired pneumonia (Acute) Acute on chronic systolic (congestive) heart failure (Acute) Chest pain (Resolved) NSTEMI (non-ST elevated myocardial infarction) (Resolved 06/05/18) I concur that tunneled dialysis catheters would be appropriate. Unfortunately the patient's left subclavian is occupied by pacemaker defibrillator wires. His history is unclear but clearly he has had a complicated course related to his coronary bypass surgery with reports of bowel resection perforation and now permanent and colostomy. I discussed with the patient plans hopefully for right internal jugular tunneled double-lumen dialysis catheter and I discussed the technique, benefits, risks and alternatives. If not possible then I will inspect potential for placement of a left internal jugular but this would be clearly less desirable because of the pacemaker wires. He has had an operative to ask and have questions answered. We will proceed was noted. CC: Dr. Tracey Concepcion M.D., F.A.C.S.
[2018-06-21] MEDS: Bupivacaine 0.5% PF 10 ML VIAL (15:30)
[2018-06-21] MEDS: Heparin 10,000 UNITS/10 ML Vial 10000 UNITS (15:30)
--- NOTE | 2018-06-21 16:02 | RAD_ITS ---
STUDY: X-RAY CHEST REASON FOR EXAM: Male, 73 years old. Placement of central venous catheter TECHNIQUE: Portable chest COMPARISON: Same day FINDINGS: Placement of a new right internal jugular central venous catheter; the tip is in the region of the superior vena cava right atrial junction. There is no pneumothorax. There are stable bilateral pulmonary opacities and pleural effusions. There is stable significant lower thoracic upper lumbar spine dextroscoliosis. Cardiac Pacemaker is again noted. Normal mediastinum and giovanni. Normal visualized pulmonary arteries. Normal visualized aortic arch and descending thoracic aorta. Normal visualized thoracic spine. Normal visualized ribs, clavicles, and shoulders. There is no demonstrated abnormality of the visualized soft tissue structures of the upper abdomen. RAD/Chest 1 View (Portable) IMPRESSION: Placement of a new right internal jugular central venous catheter; the tip is in the region of the superior vena cava right atrial junction. There is no pneumothorax Stable cardiomegaly, interstitial pulmonary edema and bilateral pleural effusions Stable significant lower thoracic and upper lumbar spine dextroscoliosis Cardiac pacemaker is again noted Electronically Signed: Medardo Morales, at 17:17 EDT Tel , Service support ,
--- NOTE | 2018-06-21 16:02 | PCM.OPRPT ---
Problem List (1) Chronic renal failure, stage 5 Status: Chronic Report of Operation Date of Procedure: 06/21/18 Pre-Operative Diagnosis: Stage V chronic renal failure Post-Operative Diagnosis: Same Surgery/Procedure Performed:: Right internal jugular 19 cm pre-curved palindrome catheter placement. Reference #[id number] lot #[id number] Description of Surgical Findings:: Timeout and informed consent was obtained. 73-year-old gentleman was taken to the operating room placed on the table underwent monitored anesthesia care. Ancef 2 g given intravenous preoperatively. The right neck was sterilely prepped draped. Ultrasound was used to identify the right internal jugular vein. 1% lidocaine mixed 50-50 with 0.5% Marcaine was used as local anesthetic. A total of 15 cc was used. Local was instilled. Then under ultrasound guided micropuncture needle was inserted the right internal jugular vein followed by salvage wire advancement. Local was instilled down upon the chest wall. The 19 cm pre-curved palindrome catheter was tunneled from the chest to the neck. Micropuncture sheath inserted. 035 J-wire was inserted. Serial dilatation was performed. Fluoroscopy had demonstrated good positioning. The sheath dilator was inserted the dilator wire removed the catheter was advanced through the sheath the sheath was split the catheter was positioned at the SVC atrial junction. It aspirated easily. It was flushed with saline and then 2 cc of heparinized saline per channel. The neck site was closed with an update 5-0 Vicryl subdermal stitch. The catheter was secured to skin with interrupted 3-0 nylon. Silver impregnated dressing and OpSite dressing applied. Counts correct blood loss minimal no apparent complication. The patient tolerated the procedure well was taken to the recovery room in satisfactory condition. Sat upright portable chest x-ray pending Specimens none. Drains none. Blood loss minimal. Medardo Concepcion M.D., F.A.C.S. Type of Anesthesia:: Local MAC Anesthesiologist: James Newby
--- NOTE | 2018-06-21 16:06 | OP.PCM_ITS ---
Problem List (1) Chronic renal failure, stage 5 Status: Chronic Report of Operation Date of Procedure: 06/21/18 Pre-Operative Diagnosis: Stage V chronic renal failure Post-Operative Diagnosis: Same Surgery/Procedure Performed:: Right internal jugular 19 cm pre-curved palindrome catheter placement. Reference #[id number] lot #[id number] Description of Surgical Findings:: Timeout and informed consent was obtained. 73-year-old gentleman was taken to the operating room placed on the table underwent monitored anesthesia care. Ancef 2 g given intravenous preoperatively. The right neck was sterilely prepped draped. Ultrasound was used to identify the right internal jugular vein. 1% lidocaine mixed 50-50 with 0.5% Marcaine was used as local anesthetic. A total of 15 cc was used. Local was instilled. Then under ultrasound guided micropuncture needle was inserted the right internal jugular vein followed by salvage wire advancement. Local was instilled down upon the chest wall. The 19 cm pre-curved palindrome catheter was tunneled from the chest to the neck. Micropuncture sheath inserted. 035 J-wire was inserted. Serial dilatation was performed. Fluoroscopy had demonstrated good positioning. The sheath dilator was inserted the dilator wire removed the catheter was advanced through the sheath the sheath was split the catheter was positioned at the SVC atrial junct ion. It aspirated easily. It was flushed with saline and then 2 cc of heparinized saline per channel. The neck site was closed with an update 5-0 Vicryl subdermal stitch. The catheter was secured to skin with interrupted 3-0 nylon. Silver impregnated dressing and OpSite dressing applied. Counts correct blood loss minimal no apparent complication. The patient tolerated the procedure well was taken to the recovery room in satisfactory condition. Sat upright portable chest x-ray pending Specimens none. Drains none. Blood loss minimal. Medardo Concepcion M.D., F.A.C.S. Type of Anesthesia:: Local MAC Anesthesiologist: James Newby
[2018-06-21] MEDS: Dextrose 50%-Water 25 GM/50 ML DISP.SYRIN IV (17:26)
[2018-06-21] MEDS: Venlafaxine XR 150 MG Capsule PO (17:55)
[2018-06-21] MEDS: Pantoprazole Sodium 40 MG Tablet PO (17:56)
[2018-06-21] MEDS: Clopidogrel Bisulfate 75 MG Tablet PO (17:56)
[2018-06-21] MEDS: Allopurinol 100 MG Tablet PO (17:56)
[2018-06-21] MEDS: Calcitriol 0.25 MCG Capsule PO (17:56)
[2018-06-21] MEDS: Aspirin E.C. 81 MG Tablet PO (17:57)
[2018-06-21] MEDS: 0.9% NaCl Peripheral Flush Adult/Peds IV (18:01)
[2018-06-21 18:06] LABS: Bedside Glucose 66 mg/dL (70-110)
[2018-06-21 18:06] LABS: Bedside Glucose 102 mg/dL (70-110)
--- NOTE | 2018-06-21 19:26 | DIALYSIS ---
Hemodialysis x 2 hours completed. First HD tx. Pt tolerated tx well. Fluid balance -1000ml. Heparin 1000units/ml to close CVC ports to fill volume. Report given to LEE Mitchell. Pt stable
[2018-06-21] MEDS: Heparin Injection (Vial) 5,000 UNIT/ML VIAL 5000 UNIT SC (22:45)
[2018-06-21] MEDS: Mirtazapine 15 MG Tablet PO (22:46)
[2018-06-21] MEDS: Carvedilol 25 MG Tablet PO (22:46)
[2018-06-21] MEDS: hydrALAZINE 50 MG Tablet PO (22:50)
[2018-06-21 23:31] LABS: Bedside Glucose 80 mg/dL (70-110)
[2018-06-22] VITALS (22 sets, daily range): BP systolic 99–140; BP diastolic 55–94; PULSE 70–83; RESP 16–25; TEMP 2.5–37.2; O2SAT 93–100
--- NOTE | 2018-06-22 02:20 | NURSING ---
Contacted Ángel in pharmacy to verify if Lasix and D5 1/2 NS were compatible. Ángel in pharmacy stated that they were.
[2018-06-22] MEDS: 0.9% NaCl Peripheral Flush Adult/Peds IV ×3 (02:34→02:45)
[2018-06-22 02:56] LABS: Bedside Glucose 82 mg/dL (70-110)
[2018-06-22 05:59] LABS: Absolute Lymphocyte Count 0.35 X10^3/ul (0.83-4.51); Absolute Neutrophil Count 5.7 X10^3/uL (2.0-7.7); Basophil# 0.03 X10^3/uL; Basophil% 0.4 % (0-1); Eosinophil# 0.35 X10^3/uL; Eosinophils% 4.8 % (0-5); Hematocrit 29.6 % (40-54); Hemoglobin 9.2 g/dl (13.0-16.5); Lymphocyte # 0.35 X10^3/ul (4.0); Lymphocyte % 4.8 % (19-41); Mean Corp Hgb Conc 31.1 g/gl (32-36); Mean Corpuscular Hgb 29.2 pg (27.0-32.0); Mean Platelet Vol. 11.4 fl (6.2-12.0); Monocyte% 12.2 % (0-10); Neutrophil % 77.5 % (47-70); Platelet Count 119 K/mm3 (150-450); RBC Distribution Width CV 17.2 % (11.6-14.6); RBC Distribution Width SD 55.6 fl (35.1-43.9); Red Blood Count 3.15 M/mm3 (4.6-6.2); White Blood Count 7.4 K/mm3 (4.4-11.0)
[2018-06-22 06:00] LABS: Differential Indicated SCAN CRITERIA MET; POSITIVE COUNT NO; POSITIVE DIFFERENTIAL YES; POSITIVE MORPHOLOGY NO
[2018-06-22 06:14] LABS: Anion Gap 9 (5-15); BUN 53 mg/dL (7-18); BUN/Creat Ratio 15.2 RATIO (10-20); Chloride 106 mmol/L (98-107); Creatinine, Serum 3.48 mg/dL (0.70-1.30); EST Glomerular Filtration Rate 18 mL/min (>60); Est Glom Filt Rate - Afr Amer 22 mL/min (>60); Estimated Creatinine Clearance 17.41 ml/min; Glucose 239 mg/dL (74-106); Magnesium 2.2 mg/dL (1.6-2.6); Potassium 3.6 mmol/L (3.5-5.1); Sodium Level 140 mmol/L (136-145)
[2018-06-22] MEDS: hydrALAZINE 50 MG Tablet PO ×3 (06:29→21:23)
[2018-06-22] MEDS: Heparin Injection (Vial) 5,000 UNIT/ML VIAL 5000 UNIT SC ×3 (06:29→21:24)
[2018-06-22] MEDS: Sucralfate 1 GM Tablet PO ×2 (06:30→17:50)
[2018-06-22] MEDS: Insulin Lispro 100 UNIT/ML INSULN.PEN SQ ×4 (06:32→21:29)
[2018-06-22 07:06] LABS: Bedside Glucose 197 mg/dL (70-110)
--- NOTE | 2018-06-22 10:18 | PN_ITS ---
Patient Problems: Active and Suspected Problems (Last Reviewed 06/21/18 @ 10:38 by Rico Ackerman MD) Acute encephalopathy (Acute) Hypoglycemia (Acute) Subjective: Right internal jugular 19 cm pre-curved palindrome catheter placement Objective: GENERAL: Patient seen having dialysis HEENT: Atraumatic; moist oral mucosa EYES; Anicteric, Normal Conjunctiva NECK; supple, normal thyroid, distended JVD. RESPIRATORY: Diminished to auscultation bilaterally, CARDIOVASCULAR: Regular S1 S2, systolic murmurs GI: soft, non-tender, normoactive bowel sounds, : No Renal angle tenderness; EXTREMITIES: Bilateral pedal edema, MUSCULOSKELETAL: No Joint Tenderness; NEURO: Awake; no lateralizing sign SKIN: No Rash PSYCH; flat affect Vitals/I&O's: Vital Signs Temp Pulse Resp BP Pulse Ox 98.3 F 77 25 H 106/81 H 100 06/22/18 07:01 06/22/18 07:01 06/22/18 07:01 06/22/18 07:01 06/22/18 07:01 Oxygen Flow Rate (L/min) 2 Oxygen Delivery Method Nasal Cannula Weight: 71.7 kg Body Mass Index (BMI) 24.4 Finger Stick Blood Glucose 111 Intake and Output for Last 24 Hours 06/20/18 06/21/18 06/22/18 23:59 23:59 23:59 Intake Total 867.5 / 867.5 411.4 / 411.4 Output Total 1050 / 1050 575 / 575 Balance -182.5 / -182.5 -163.6 / -163.6 Laboratory Results 06/21/18 06:45: Phosphorus 6.3 H 06/21/18 10:02: Troponin I 0.124 H 06/21/18 11:14: POC Glucose 104 06/21/18 12:50: Troponin I 0.139 H 06/21/18 14:20: POC Glucose 105 06/21/18 15:18: POC Glucose 92 06/21/18 17:21: POC Glucose 66 L 06/21/18 17:49: Hep Bs Antigen Pending 06/21/18 17:49: Hep Bs Antibody Pending 06/21/18 17:49: POC Glucose 102 06/21/18 22:42: POC Glucose 80 06/22/18 02:32: POC Glucose 82 06/22/18 05:35: WBC 7.4, RBC 3.15 L, Hgb 9.2 L, Hct 29.6 L, MCV 94.0, MCH 29.2, MCHC 31.1 L, RDW 17.2 H, RDW Differential 55.6 H, Plt Count 119 L, MPV 11.4, Immature Gran % (Auto) 0.300, Neut % (Auto) 77.5 H, Lymph % (Auto) 4.8 L, [place] % (Auto) 12.2 H, Eos % (Auto) 4.8, Baso % (Auto) 0.4, Absolute Neuts (auto) 5.7, Absolute Lymphs (auto) 0.35 L, Total Counted Not Reportable 06/22/18 05:35: Sodium 140, Potassium 3.6, Chloride 106, Carbon Dioxide 25.0, Anion Gap 9, BUN 53 H, Creatinine 3.48 H, Estim Creat Clear Calc 17.41, Est GFR (MDRD) Af Amer 22 L, Est GFR (MDRD) Non-Af 18 L, BUN/Creatinine Ratio 15.2, Glucose 239 H, Calcium 8.0 L, Magnesium 2.2 06/22/18 06:19: POC Glucose 197 H Current Medications Acetaminophen (Tylenol) 650 mg PO Q6H PRN PRN PRN Reason: Mild Pain (1-3)/Temp > 100.7 F Al Hydroxide/Mg Hydroxide (Mylanta Ii) 30 ml PO Q6H PRN PRN PRN Reason: Gastric Burning Albuterol Sulfate (Ventolin Aerosols) 2.5 mg INHALATION Q2H PRN PRN PRN Reason: Shortness of Breath/Wheezing Allopurinol (Zyloprim) 100 mg PO DAILY@0800 [facility] Last Admin: 06/21/18 17:56 Dose: 100 mg Aspirin (Ecotrin) 81 mg PO DAILY@0800 [facility] Last Admin: 06/21/18 17:57 Dose: 81 mg Calcitriol (Rocaltrol) 0.25 mcg PO DAILY [facility] Last Admin: 06/21/18 17:56 Dose: 0.25 mcg Carvedilol (Coreg) 25 mg PO BID [facility] Last Admin: 06/21/18 22:46 Dose: 25 mg Clopidogrel Bisulfate (Plavix) 75 mg PO DAILY [facility] Last Admin: 06/21/18 17:56 Dose: 75 mg Dextrose (D50w Syringe) 0 gm IV X1 PRN; Protocol PRN Reason: Hypoglycemia Last Admin: 06/21/18 17:26 Dose: 12.5 gm Glucagon () 1 mg IM .X1 PRN PRN Reason: Hypoglycemia Guaifenesin (Robitussin) 20 ml PO Q4H PRN PRN PRN Reason: COUGH Heparin Sodium (Porcine) (Heparin Na) 5,000 unit SC Q8 [facility] Last Admin: 06/22/18 06:29 Dose: 5,000 unit Hydralazine HCl (Apresoline) 50 mg PO TID [facility] Last Admin: 06/22/18 06:29 Dose: 50 mg Dextrose/Sodium Chloride () 1,000 mls @ 75 mls/hr IV .[id number] [facility] Last Admin: 06/21/18 22:38 Dose: 75 mls/hr Insulin Human Lispro (Humalog Kwikpen (Bkc)) 0 unit SQ Q4 [facility]; Protocol Last Admin: 06/22/18 06:32 Dose: 1 units Isosorbide Mononitrate (Imdur) 30 mg PO DAILY [facility] Last Admin: 06/21/18 17:54 Dose: Not Given Magnesium Hydroxide (Milk Of Magnesia) 30 ml PO DAILY PRN PRN PRN Reason: Constipation Melatonin (Melatonin) 3 mg PO QHS PRN PRN PRN Reason: INSOMNIA Mirtazapine (Remeron) 15 mg PO QHS [facility] Last Admin: 06/21/18 22:46 Dose: 15 mg Multivit/Ca Carb/B Cmplx/FA/Prenat (Nephrocaps, Renaphro) 1 capsule PO DAILY [facility] Nitroglycerin (Nitrostat) 0.4 mg SUBLINGUAL Q5M PRN PRN Reason: CARDIAC/CHEST PAIN Ondansetron HCl (Zofran) 4 mg IV Q8H PRN PRN PRN Reason: NAUSEA/VOMITING Oxycodone HCl (Oxyir) 5 mg PO Q4H PRN PRN PRN Reason: Moderate Pain (4-6/10) Pantoprazole Sodium (Protonix) 40 mg PO BIDAC [facility] Last Admin: 06/21/18 17:56 Dose: 40 mg Promethazine HCl (Phenergan) 25 mg IM Q6H PRN PRN PRN Reason: Breakthrough nausea/vomiting Sodium Chloride () 5 - 15 ml IV UD PRN PRN Reason: SALINE FLUSH Last Admin: 06/22/18 02:45 Dose: 10 ml Sucralfate (Carafate) 1 gm PO BID@0700,1600 [facility] Last Admin: 06/22/18 06:30 Dose: 1 gm Venlafaxine HCl (Effexor Xr) 150 mg PO DAILY [facility] Last Admin: 06/21/18 17:55 Dose: 150 mg Medical Necessity - Tobacco Use Smoking Status: Former smoker Assessment/Plan All Active Problems (Last Reviewed 06/21/18 @ 10:38 by Rico Ackerman MD) Acute encephalopathy (Acute) Hypoglycemia (Acute) Community acquired pneumonia (Acute) Acute on chronic systolic (congestive) heart failure (Acute) Chest pain (Resolved) NSTEMI (non-ST elevated myocardial infarction) (Resolved 06/05/18) Patient is a 73-year-old gentleman w with multiple comorbidities including CAD status post CABG and subsequent PCI, stage V chronic kidney disease diabetes mellitus type 2 brought in with altered mental status. Patient found to be hypoglycemic. Patient in addition was found to have acute congestive heart failure admitted to monitored bed for further management 1. Acute metabolic encephalopathy secondary to hypoglycemia. Patient has underlying history of chronic kidney disease stage V and is also diabetic. Per patient's patient did take his insulin without much oral diet has his hypoglycemia. Patient was started on D5 for the emergency department admitted to monitored bed for subsequent management. Hiss scheduled insulin held on admission. Patient blood glucose up to 197 as of 06/22/2018 2. Diabetes mellitus type 2 presented with hypoglycemia management as discussed above patient blood glucose up to 197 as of 06/22/2018 3. Acute on chronic systolic heart failure patient has known CHF with reduced ejection fraction of 25%. Patient admitted to monitored bed placed on Lasix drip with consultation placed to cardiology. Of note patient was seen by cardiology as outpatient a day prior to his admission patient has been seen by cardiology his home meds adjusted with discontinuation of Cardizem and initiation of hydralazine 4. Chronic kidney disease stage V secondary to diabetic nephropathy patient apparently has worsening kidney function consultation was placed to patient's computer aided drafter Dr. Royal. Right internal jugular 19 cm pre-curved palindrome catheter placement dialysis initiated starting 06/22/2018 5. Coronary artery disease with previous CABG and subsequent PCI 6. 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 Hypertension-blood pressure controlled, home medications continued with dose adjustment as needed 8. Depression with anxiety ; patient on Effexor 9. Anemia secondary to anemia of chronic disorder monitoring H&H with plans to transfuse if patient becomes symptomatic or hemoglobin falls below 7 10. GERD on PPI 10. DVT prophylaxis on heparin Code Visit Inpatient E&M: 60451 Subs Hosp L3
[2018-06-22 10:36] LABS: Bedside Glucose 148 mg/dL (70-110)
--- NOTE | 2018-06-22 11:50 | DIALYSIS ---
Hemodialysis x 2.5 hours complete. UF 1 liter. Patient tolerated his second hemodialysis treatment well, stable. Next hemodialysis treatment per nephrology.
--- NOTE | 2018-06-22 12:15 | CASEMGMT ---
Addendum entered by Tierra Fairbanks 06/22/18 14:00: 1250: Pt declines to be transferred to [facility] and signed Declination to transfer form. Call placed to [facility] line and they were made aware. Form faxed to the transfer center line @ along with clinicals. Copy of form made and placed on chart. given original. Call also placed to [facility] and message left on PACT team 4, LEE Luna's , stating pt is @ [facility]. Clinicals faxed to [facility]. Edda ALMENDAREZN RN RAMOS Original Note: RN CM UNIT ASSEMBLER CM to room to meet with patient for initial transition planning/care coordination assessment. RN CM introduced self and role at [facility]. Pt voices understanding and consents to assessment at this time. Pt resting in bed in no distress at this time. Receiving Dialysis. @ bedside. Pt is A/O. Both pt and provided answers to questions. Care providers, pharmacy, and demographics verified/updated at this time. PCP: SANJUANA Cee MD: Dr Kirkland Specialists: Akil-Cardiology, Lele-nephrology, Psychiatrist @ [place] Preferred Pharmacy: [facility] or [facility] [place]: [place], [place] Living Will/HPOA: Has both LW and HPOA, who is his , Merle Dixon. Copies not found on e-chart and aware. She states she will try to remember to bring them in. LNOK: Living Arrangements: Lives with in a Ranch-style home w/basement. Rails on stairs to basement. states pt rarely goes to basement. 2 steps to enter. states pt able to bath/dress himself, but she assists w/meals and authorization nurse. Transportation: Pt states drives self and states no transportation concerns at this time. able to drive pt home on d/c. DME: States has/uses the following DME: walk-in shower w/shower chair, hand-held shower, glucometer. States glucometer works well and he has all needed supplies. states they have the following DME available but pt does not use: cane, crutches, walker. Denies need for further DME at this time. Does not have home O2. states if pt would need Home O2 on discharge, [facility] HHC/SNF: No history of SNF. Did have HHC after bypass surgery but does not remember name of agency. Pt and wish for pt to return home and states has no concerns with going home at time of discharge. Pt and decline HHC. Pt has Silver sneakers and goes to [employer] 3 x's/week. Pt to have Out-pt dialysis on discharge. This is being arranged by CM. CM to follow for any further discharge planning/needs. Pt voices no further concerns/needs at this time. Advised pt to ask for CM if any further questions/concerns/needs arise. Voices understanding. PLAN: Home with Out-patient Dialysis Edda JC RN CM
--- NOTE | 2018-06-22 12:20 | PCM.PN.CARD ---
Subjectve: Patient seen and examined this morning. He feels much better after his first round of dialysis and is currently undergoing a second round of dialysis today. 1 L was extracted yesterday and a second liter is to be extracted today if possible. He denies any chest pain or anginal symptoms. Telemetry showed normal sinus rhythm with rare PVCs. Objective: Vital Signs Temp Pulse Resp BP Pulse Ox 36.5 F L 81 16 131/73 H 95 06/22/18 11:24 06/22/18 11:24 06/22/18 11:24 06/22/18 11:24 06/22/18 09:00 Oxygen Flow Rate (L/min) 2 Oxygen Delivery Method Nasal Cannula Weight: 158 lb 1.143 oz Body Mass Index (BMI) 24.4 Finger Stick Blood Glucose 111 Intake and Output for Last 24 Hours 06/20/18 06/21/18 06/22/18 23:59 23:59 23:59 Intake Total 867.5 / 867.5 651.4 / 651.4 Output Total 1050 / 1050 815 / 815 Balance -182.5 / -182.5 -163.6 / -163.6 General: Awake, Alert, Oriented x 3 HEENT: PERRL, EOMI, Sclera Non Icteric Neck: Supple, Good ROM, No Lymph Node Enlargement Lungs: Clear to auscultation Cardiovascular: Regular Rhythm, Normal S1, Normal S2, No Murmurs, No Rubs, No Gallops Vascular: No Carotid Bruits, Normal Femoral Pulses, Normal Radial Pulses, Normal Dorsalis Pedal Pulse, Normal Posterior Tibial Pulses Abdomen: Bowel Sounds Present, Soft, Non Tender, No HSM, No Organomegaly Extremities: No Cyanosis, No Clubbing, No edema Neurological: No Focal Motor or Sensory Deficit 06/21/18 06:45: Phosphorus 6.3 H 06/21/18 12:50: Troponin I 0.139 H 06/22/18 05:35: WBC 7.4, RBC 3.15 L, Hgb 9.2 L, Hct 29.6 L, MCV 94.0, MCH 29.2, MCHC 31.1 L, RDW 17.2 H, RDW Differential 55.6 H, Plt Count 119 L, MPV 11.4, Immature Gran % (Auto) 0.300, Neut % (Auto) 77.5 H, Lymph % (Auto) 4.8 L, [place] % (Auto) 12.2 H, Eos % (Auto) 4.8, Baso % (Auto) 0.4, Absolute Neuts (auto) 5.7, Total Counted Not Reportable 06/22/18 05:35: Sodium 140, Potassium 3.6, Chloride 106, Carbon Dioxide 25.0, Anion Gap 9, BUN 53 H, Creatinine 3.48 H, Est GFR (MDRD) Af Amer 22 L, Est GFR (MDRD) Non-Af 18 L, BUN/Creatinine Ratio 15.2, Glucose 239 H, Calcium 8.0 L, Magnesium 2.2 Rhythm: EKG: ECHO: LVEF of 25%, severe 4+ mitral regurgitation, severe pulmonary hypertension with RVSP in the 70s. Stress Test: Cardiac Cath: PCI: CT Surgery: Holter monitor: EPS: PPM: CXR: Chest CT Scan: Medical Necessity - Tobacco Use Smoking Status: Former smoker Assessment/Plan 1. LV dysfunction: Patient presents with acute on chronic renal failure to the point where he required urgent dialysis with mental status changes and hypoglycemia. After 2 rounds of hemodialysis, the patient feels much better, and is tolerating dialysis well. He has had 1 L removed yesterday and an additional liter to be removed today. Now that he is on permanent dialysis, we may consider increasing his afterload reducing therapy. We will use dialysis for fluid management and fluid removal to offload the pressure in his pulmonary arteries. However, given his poor hypertension he may be preload dependent and may have difficulty perfusing the dialysis machine if his blood pressure and volume status are reduced to much. This point recommend continuing his Coreg, starting him on Cozaar 25 mg p.o. daily for afterload reducing, and perhaps wean off his hydralazine to assist with afterload reduction. Now that he is on permanent dialysis he no longer requires Imdur/hydralazine as afterload reducing agents to protect his kidneys. However, he may benefit from Imdur for coronary and pulmonary vasodilatation so we will continue Imdur therapy. 2. Mitral regurgitation: Patient has severe mitral regurgitation with concomitant severe pulmonary hypertension. At this point we will hold off on mitral valve repair until he has been stabilized on hemodialysis. Mitral valve repair may be somewhat problematic given his comorbidities. 3. Coronary artery disease: The patient has a history of CABG in the past with and is found to have a patent CHARLES to the LAD, and occluded saphenous vein graft to the circumflex, patent left main stent, patent stent to the midportion of the saphenous vein graft and a recent drug-eluting stent to the distal portion of the saphenous vein graft to the RCA in May 2018. He will require baby aspirin and Plavix moving forward. No indication for repeat catheterization at this time. 4. Thank you very much for the opportunity to participate in the cardiac care of your patient. Code Visit Inpatient E&M: 20421 Subs Hosp L2
[2018-06-22] MEDS: Venlafaxine XR 150 MG Capsule PO (12:57)
[2018-06-22] MEDS: Pantoprazole Sodium 40 MG Tablet PO ×2 (12:57→17:50)
[2018-06-22] MEDS: Aspirin E.C. 81 MG Tablet PO (12:57)
[2018-06-22] MEDS: Folic Acid/Vitamin B Comp W-C 1 Capsule 1 CAP PO (12:57)
[2018-06-22] MEDS: Isosorbide Mononitrate 30 MG Tablet PO (12:57)
[2018-06-22] MEDS: Calcitriol 0.25 MCG Capsule PO (12:57)
[2018-06-22] MEDS: Clopidogrel Bisulfate 75 MG Tablet PO (12:58)
[2018-06-22] MEDS: Allopurinol 100 MG Tablet PO (12:58)
[2018-06-22] MEDS: Carvedilol 25 MG Tablet PO ×2 (12:58→21:23)
[2018-06-22] MEDS: Heparin 10,000 UNITS/10 ML Vial IV (12:59)
[2018-06-22] MEDS: Epoetin Alfa epbx 10,000 UNITS/ML 6000 UNIT SC (13:00)
--- NOTE | 2018-06-22 13:01 | PCM.PN.REN ---
Patient Problems: Active and Suspected Problems (Last Reviewed 06/21/18 @ 10:38 by Rico Ackerman MD) Acute encephalopathy (Acute) Hypoglycemia (Acute) Subjective: Denies chest pain or shortness of breath. Continues to have trace ankle edema. Slurred speech improved. Mental status seems to be better after dialysis treatment last night. He received his second dialysis treatment today without incident. He denies any nausea or vomiting. He is feeling better. His is at bedside. - Physical Exam General: Alert, Oriented x3, Cooperative, No apparent distress Lungs: Clear to auscultation Cardiovascular: Regular rate, Murmur Abdomen: Bowel Sounds Present, Soft, Non Tender, Non-Distended, - - Ostomy bag Extremities: Edema - Ankle swelling Musculoskeletal: No Muscle Wasting Neurological: Cranial nerves II-XII grossly intact, Slurred Speech - Improved, - Psych/Mental Status: Normal Affect, Appropriate, Alert and oriented to time, place, person, mood and affect Vital Signs Temp Pulse Resp BP Pulse Ox 98 F 80 18 132/71 H 94 06/22/18 12:52 06/22/18 12:58 06/22/18 12:52 06/22/18 12:52 06/22/18 12:52 Oxygen Flow Rate (L/min) 2 Oxygen Delivery Method Nasal Cannula Weight: 71.7 kg Body Mass Index (BMI) 24.4 Finger Stick Blood Glucose 111 Intake and Output for Last 24 Hours 06/20/18 06/21/18 06/22/18 23:59 23:59 23:59 Intake Total 867.5 / 867.5 651.4 / 651.4 Output Total 1050 / 1050 815 / 815 Balance -182.5 / -182.5 -163.6 / -163.6 Laboratory Tests Past 24 Hrs 06/21/18 06/21/18 06/21/18 12:50 17:49 17:49 WBC RBC Hgb Hct MCV MCH MCHC RDW RDW Differential Plt Count MPV Immature Gran % (Auto) Neut % (Auto) Lymph % (Auto) [place] % (Auto) Eos % (Auto) Baso % (Auto) Absolute Neuts (auto) Absolute Lymphs (auto) Total Counted Sodium Potassium Chloride Carbon Dioxide Anion Gap BUN Creatinine Estim Creat Clear Calc Est GFR (MDRD) Af Amer Est GFR (MDRD) Non-Af BUN/Creatinine Ratio Glucose Calcium Magnesium Troponin I 0.139 H Hep Bs Antigen Pending Hep Bs Antibody Pending 06/22/18 06/22/18 05:35 05:35 WBC 7.4 RBC 3.15 L Hgb 9.2 L Hct 29.6 L MCV 94.0 MCH 29.2 MCHC 31.1 L RDW 17.2 H RDW Differential 55.6 H Plt Count 119 L MPV 11.4 Immature Gran % (Auto) 0.300 Neut % (Auto) 77.5 H Lymph % (Auto) 4.8 L [place] % (Auto) 12.2 H Eos % (Auto) 4.8 Baso % (Auto) 0.4 Absolute Neuts (auto) 5.7 Absolute Lymphs (auto) 0.35 L Total Counted Not Reportable Sodium 140 Potassium 3.6 Chloride 106 Carbon Dioxide 25.0 Anion Gap 9 BUN 53 H Creatinine 3.48 H Estim Creat Clear Calc 17.41 Est GFR (MDRD) Af Amer 22 L Est GFR (MDRD) Non-Af 18 L BUN/Creatinine Ratio 15.2 Glucose 239 H Calcium 8.0 L Magnesium 2.2 Troponin I Hep Bs Antigen Hep Bs Antibody POC Glucose 06/22/18 06/22/18 06/22/18 10:00 06:19 02:32 POC Glucose 148 H 197 H 82 06/21/18 06/21/18 06/21/18 22:42 17:49 17:21 POC Glucose 80 102 66 L 06/21/18 06/21/18 15:18 14:20 POC Glucose 92 105 Medical Necessity - Tobacco Use Smoking Status: Former smoker Assessment/Plan All Active Problems (Last Reviewed 06/21/18 @ 10:38 by Rico Ackerman MD) Acute encephalopathy (Acute) Hypoglycemia (Acute) Community acquired pneumonia (Acute) Acute on chronic systolic (congestive) heart failure (Acute) Chest pain (Resolved) NSTEMI (non-ST elevated myocardial infarction) (Resolved 06/05/18) 1. ESRD due to diabetic nephropathy. Hemodialysis today #2. Next dialysis tomorrow. We will put him on a Monday schedule for now. Await hepatitis profile. 2. Encephalopathy with slurred speech improved. CT unremarkable for acute finding. 3. Diabetes mellitus type 2 primary management. DC IV fluids for swelling. 4. Anemia hemoglobin stable 5. Hypertension with stable blood pressures
[2018-06-22 15:06] LABS: Bedside Glucose 209 mg/dL (70-110)
[2018-06-22 18:00] LABS: Bedside Glucose 231 mg/dL (70-110)
[2018-06-22] MEDS: Mirtazapine 15 MG Tablet PO (21:23)
[2018-06-22 21:50] LABS: Bedside Glucose 154 mg/dL (70-110)
[2018-06-23] VITALS (14 sets, daily range): BP systolic 134–153; BP diastolic 60–85; PULSE 73–88; RESP 17–21; TEMP 2.6–36.9; O2SAT 93–96
[2018-06-23 02:36] LABS: Bedside Glucose 146 mg/dL (70-110)
[2018-06-23 06:02] LABS: Absolute Lymphocyte Count 0.48 X10^3/ul (0.83-4.51); Absolute Neutrophil Count 5.4 X10^3/uL (2.0-7.7); Basophil# 0.04 X10^3/uL; Basophil% 0.5 % (0-1); Differential Indicated SCAN CRITERIA MET; Eosinophil# 0.59 X10^3/uL; Eosinophils% 7.8 % (0-5); Hematocrit 29.5 % (40-54); Hemoglobin 9.4 g/dl (13.0-16.5); Lymphocyte # 0.48 X10^3/ul (4.0); Lymphocyte % 6.3 % (19-41); Mean Corp Hgb Conc 31.9 g/gl (32-36); Mean Corpuscular Hgb 29.7 pg (27.0-32.0); Mean Corpuscular Volume 93.4 fL (80-94); Mean Platelet Vol. 11.1 fl (6.2-12.0); Monocyte# 1.11 X10^3/uL; Monocyte% 14.6 % (0-10); Neutrophil # 5.36 X10^3/uL (2.7-7.7); Neutrophil % 70.7 % (47-70); POSITIVE COUNT NO; POSITIVE DIFFERENTIAL YES; POSITIVE MORPHOLOGY NO; Platelet Count 102 K/mm3 (150-450); RBC Distribution Width CV 16.8 % (11.6-14.6); RBC Distribution Width SD 53.8 fl (35.1-43.9); Red Blood Count 3.16 M/mm3 (4.6-6.2); White Blood Count 7.6 K/mm3 (4.4-11.0)
[2018-06-23 06:19] LABS: Anion Gap 9 (5-15); BUN 38 mg/dL (7-18); BUN/Creat Ratio 12.4 RATIO (10-20); Calcium,Total 7.9 mg/dL (8.5-10.1); Chloride 108 mmol/L (98-107); Creatinine, Serum 3.07 mg/dL (0.70-1.30); EST Glomerular Filtration Rate 21 mL/min (>60); Est Glom Filt Rate - Afr Amer 26 mL/min (>60); Estimated Creatinine Clearance 19.74 ml/min; Glucose 135 mg/dL (74-106); Potassium 3.3 mmol/L (3.5-5.1); Sodium Level 142 mmol/L (136-145)
[2018-06-23] MEDS: Pantoprazole Sodium 40 MG Tablet PO ×2 (06:31→16:36)
[2018-06-23] MEDS: Sucralfate 1 GM Tablet PO ×2 (06:31→16:36)
[2018-06-23] MEDS: Heparin Injection (Vial) 5,000 UNIT/ML VIAL 5000 UNIT SC ×2 (06:31→21:41)
[2018-06-23] MEDS: hydrALAZINE 50 MG Tablet PO ×2 (06:32→21:34)
[2018-06-23 06:48] LABS: Differential Comment SCANNED
[2018-06-23 07:01] LABS: Bedside Glucose 134 mg/dL (70-110)
[2018-06-23] MEDS: Aspirin E.C. 81 MG Tablet PO (08:01)
[2018-06-23] MEDS: Folic Acid/Vitamin B Comp W-C 1 Capsule 1 CAP PO (08:01)
[2018-06-23] MEDS: Venlafaxine XR 150 MG Capsule PO (08:01)
[2018-06-23] MEDS: Isosorbide Mononitrate 30 MG Tablet PO (08:01)
[2018-06-23] MEDS: Carvedilol 25 MG Tablet PO ×2 (08:02→21:40)
[2018-06-23] MEDS: Allopurinol 100 MG Tablet PO (08:02)
[2018-06-23] MEDS: Clopidogrel Bisulfate 75 MG Tablet PO (08:03)
[2018-06-23] MEDS: Calcitriol 0.25 MCG Capsule PO (08:03)
--- NOTE | 2018-06-23 08:33 | PCM.PN.HOSP ---
Patient Problems: Active and Suspected Problems (Last Reviewed 06/21/18 @ 10:38 by Rico Ackerman MD) Acute encephalopathy (Acute) Hypoglycemia (Acute) Subjective: Patient seen complains of breathing being labored. Scheduled to have another dialysis session this a.m. Objective: GENERAL: Patient seen having dialysis HEENT: Atraumatic; moist oral mucosa EYES; Anicteric, Normal Conjunctiva NECK; supple, normal thyroid, distended JVD. RESPIRATORY: Diminished to auscultation bilaterally, CARDIOVASCULAR: Regular S1 S2, systolic murmurs GI: soft, non-tender, normoactive bowel sounds, : No Renal angle tenderness; EXTREMITIES: Bilateral pedal edema, MUSCULOSKELETAL: No Joint Tenderness; NEURO: Awake; no lateralizing sign SKIN: No Rash PSYCH; flat affect Vitals/I&O's: Vital Signs Temp Pulse Resp BP Pulse Ox 98.4 F 86 21 H 146/79 H 93 06/23/18 06:32 06/23/18 07:08 06/23/18 06:32 06/23/18 06:32 06/23/18 07:50 Oxygen Flow Rate (L/min) 1 Oxygen Delivery Method Room Air Weight: 71.7 kg Body Mass Index (BMI) 24.4 Finger Stick Blood Glucose 111 Intake and Output for Last 24 Hours 06/21/18 06/22/18 06/23/18 23:59 23:59 23:59 Intake Total 867.5 / 867.5 891.4 / 891.4 360 / 360 Output Total 1050 / 1050 1315 / 1315 800 / 800 Balance -182.5 / -182.5 -423.6 / -423.6 -440 / -440 Microbiology Past 72 Hours 06/21/18 09:18 Urine, Clean Catch Urine Culture - Final Culture exhibits no growth. Laboratory Results 06/22/18 10:00: POC Glucose 148 H 06/22/18 14:48: POC Glucose 209 H 06/22/18 17:42: POC Glucose 231 H 06/22/18 21:29: POC Glucose 154 H 06/23/18 02:20: POC Glucose 146 H 06/23/18 05:36: WBC 7.6, RBC 3.16 L, Hgb 9.4 L, Hct 29.5 L, MCV 93.4, MCH 29.7, MCHC 31.9 L, RDW 16.8 H, RDW Differential 53.8 H, Plt Count 102 L, MPV 11.1, Immature Gran % (Auto) 0.100, Neut % (Auto) 70.7 H, Lymph % (Auto) 6.3 L, [place] % (Auto) 14.6 H, Eos % (Auto) 7.8 H, Baso % (Auto) 0.5, Absolute Neuts (auto) 5.4, Absolute Lymphs (auto) 0.48 L, Total Counted Not Reportable, Differential Comment SCANNED 06/23/18 05:36: Sodium 142, Potassium 3.3 L, Chloride 108 H, Carbon Dioxide 25.0, Anion Gap 9, BUN 38 H, Creatinine 3.07 H, Estim Creat Clear Calc 19.74, Est GFR (MDRD) Af Amer 26 L, Est GFR (MDRD) Non-Af 21 L, BUN/Creatinine Ratio 12.4, Glucose 135 H, Calcium 7.9 L 06/23/18 06:37: POC Glucose 134 H Current Medications Acetaminophen (Tylenol) 650 mg PO Q6H PRN PRN PRN Reason: Mild Pain (1-3)/Temp > 100.7 F Al Hydroxide/Mg Hydroxide (Mylanta Ii) 30 ml PO Q6H PRN PRN PRN Reason: Gastric Burning Albuterol Sulfate (Ventolin Aerosols) 2.5 mg INHALATION Q2H PRN PRN PRN Reason: Shortness of Breath/Wheezing Allopurinol (Zyloprim) 100 mg PO DAILY@0800 [facility] Last Admin: 06/23/18 08:02 Dose: 100 mg Aspirin (Ecotrin) 81 mg PO DAILY@0800 [facility] Last Admin: 06/23/18 08:01 Dose: 81 mg Calcitriol (Rocaltrol) 0.25 mcg PO DAILY [facility] Last Admin: 06/23/18 08:03 Dose: 0.25 mcg Carvedilol (Coreg) 25 mg PO BID [facility] Last Admin: 06/23/18 08:02 Dose: 25 mg Clopidogrel Bisulfate (Plavix) 75 mg PO DAILY [facility] Last Admin: 06/23/18 08:03 Dose: 75 mg Dextrose (D50w Syringe) 0 gm IV X1 PRN; Protocol PRN Reason: Hypoglycemia Last Admin: 06/21/18 17:26 Dose: 12.5 gm Glucagon () 1 mg IM .X1 PRN PRN Reason: Hypoglycemia Guaifenesin (Robitussin) 20 ml PO Q4H PRN PRN PRN Reason: COUGH Heparin Sodium (Porcine) (Heparin Na) 5,000 unit SC Q8 [facility] Last Admin: 06/23/18 06:31 Dose: 5,000 unit Hydralazine HCl (Apresoline) 50 mg PO TID [facility] Last Admin: 06/23/18 06:32 Dose: 50 mg Insulin Human Lispro (Humalog Kwikpen (Bkc)) 0 unit SQ Q4 [facility]; Protocol Last Admin: 06/23/18 06:57 Dose: Not Given Isosorbide Mononitrate (Imdur) 30 mg PO DAILY [facility] Last Admin: 06/23/18 08:01 Dose: 30 mg Magnesium Hydroxide (Milk Of Magnesia) 30 ml PO DAILY PRN PRN PRN Reason: Constipation Melatonin (Melatonin) 3 mg PO QHS PRN PRN PRN Reason: INSOMNIA Mirtazapine (Remeron) 15 mg PO QHS [facility] Last Admin: 06/22/18 21:23 Dose: 15 mg Multivit/Ca Carb/B Cmplx/FA/Prenat (Nephrocaps, Renaphro) 1 capsule PO DAILY [facility] Last Admin: 06/23/18 08:01 Dose: 1 capsule Nitroglycerin (Nitrostat) 0.4 mg SUBLINGUAL Q5M PRN PRN Reason: CARDIAC/CHEST PAIN Ondansetron HCl (Zofran) 4 mg IV Q8H PRN PRN PRN Reason: NAUSEA/VOMITING Oxycodone HCl (Oxyir) 5 mg PO Q4H PRN PRN PRN Reason: Moderate Pain (4-6/10) Pantoprazole Sodium (Protonix) 40 mg PO BIDAC [facility] Last Admin: 06/23/18 06:31 Dose: 40 mg Promethazine HCl (Phenergan) 25 mg IM Q6H PRN PRN PRN Reason: Breakthrough nausea/vomiting Sodium Chloride () 5 - 15 ml IV UD PRN PRN Reason: SALINE FLUSH Last Admin: 06/22/18 02:45 Dose: 10 ml Sucralfate (Carafate) 1 gm PO BID@0700,1600 [facility] Last Admin: 06/23/18 06:31 Dose: 1 gm Venlafaxine HCl (Effexor Xr) 150 mg PO DAILY [facility] Last Admin: 06/23/18 08:01 Dose: 150 mg Medical Necessity - Tobacco Use Smoking Status: Former smoker Assessment/Plan All Active Problems (Last Reviewed 06/21/18 @ 10:38 by Rico Ackerman MD) Acute encephalopathy (Acute) Hypoglycemia (Acute) Community acquired pneumonia (Acute) Acute on chronic systolic (congestive) heart failure (Acute) Chest pain (Resolved) NSTEMI (non-ST elevated myocardial infarction) (Resolved 06/05/18) Patient is a 73-year-old gentleman w with multiple comorbidities including CAD status post CABG and subsequent PCI, stage V chronic kidney disease diabetes mellitus type 2 brought in with altered mental status. Patient found to be hypoglycemic. Patient in addition was found to have acute congestive heart failure admitted to monitored bed for further management 1. Acute metabolic encephalopathy secondary to hypoglycemia. Patient has underlying history of chronic kidney disease stage V and is also diabetic. Per patient's patient did take his insulin without much oral diet has his hypoglycemia. Patient was started on D5 for the emergency department admitted to monitored bed for subsequent management. His scheduled insulin held on admission. Patient blood glucose up to 197 as of 06/22/2018 2. Diabetes mellitus type 2 presented with hypoglycemia management as discussed above patient blood glucose up to 197 as of 06/22/2018 hypoglycemia resolved 3. Acute on chronic systolic heart failure patient has known CHF with reduced ejection fraction of 25%. Patient admitted to monitored bed placed on Lasix drip with consultation placed to cardiology. Of note patient was seen by cardiology as outpatient a day prior to his admission patient has been seen by cardiology his home meds adjusted with discontinuation of Cardizem and initiation of hydralazine 4. 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 Right internal jugular 19 cm pre-curved palindrome catheter placement dialysis initiated starting 06/22/2018 plan is for patient to continue outpatient dialysis with session scheduled for Tuesdays and Saturdays. 5. Coronary artery disease with previous CABG and subsequent PCI 6. 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 Hypertension-blood pressure controlled, home medications continued with dose adjustment as needed 8. Depression with anxiety ; patient on Effexor 9. Anemia secondary to anemia of chronic disorder monitoring H&H with plans to transfuse if patient becomes symptomatic or hemoglobin falls below 7 10. GERD on PPI 10. DVT prophylaxis on heparin Code Visit Inpatient E&M: 62396 Subs Hosp L2
--- NOTE | 2018-06-23 11:07 | PN.RENAL_ITS ---
Patient Problems: Active and Suspected Problems (Last Reviewed 06/21/18 @ 10:38 by Rico Ackerman MD) Acute encephalopathy (Acute) Hypoglycemia (Acute) Subjective: feeling better. breathing improvied. dialysis later today. Scheduled for outpt dialysis TTS first shift at [facility] unit. - Physical Exam General: Alert, Oriented x3, Cooperative Lungs: Diminished - bases, Rales Cardiovascular: Regular rate Abdomen: Bowel Sounds Present, Soft, Non Tender, Non-Distended Extremities: No edema Vital Signs Temp Pulse Resp BP Pulse Ox 98.4 F 86 21 H 146/79 H 93 06/23/18 06:32 06/23/18 07:08 06/23/18 06:32 06/23/18 06:32 06/23/18 07:50 Oxygen Flow Rate (L/min) 1 Oxygen Delivery Method Room Air Weight: 71.7 kg Body Mass Index (BMI) 24.4 Finger Stick Blood Glucose 111 Intake and Output for Last 24 Hours 06/21/18 06/22/18 06/23/18 23:59 23:59 23:59 Intake Total 867.5 / 867.5 891.4 / 891.4 360 / 360 Output Total 1050 / 1050 1315 / 1315 800 / 800 Balance -182.5 / -182.5 -423.6 / -423.6 -440 / -440 Microbiology Past 72 Hours 06/21/18 07:25 Blood Culture - Preliminary Blood Culture (Wb) - Anticubital Left No growth in 48 hours. 06/21/18 07:15 Blood Culture - Preliminary Blood Culture (Wb) - Anticubital Right No growth in 48 hours. 06/21/18 09:18 Urine Culture - Final Urine, Clean Catch Culture exhibits no growth. Laboratory Tests Past 24 Hrs 06/23/18 06/23/18 05:36 05:36 WBC 7.6 RBC 3.16 L Hgb 9.4 L Hct 29.5 L MCV 93.4 MCH 29.7 MCHC 31.9 L RDW 16.8 H RDW Differential 53.8 H Plt Count 102 L MPV 11.1 Immature Gran % (Auto) 0.100 Neut % (Auto) 70.7 H Lymph % (Auto) 6.3 L [place] % (Auto) 14.6 H Eos % (Auto) 7.8 H Baso % (Auto) 0.5 Absolute Neuts (auto) 5.4 Absolute Lymphs (auto) 0.48 L Total Counted Not Reportable Differential Comment SCANNED Sodium 142 Potassium 3.3 L Chloride 108 H Carbon Dioxide 25.0 Anion Gap 9 BUN 38 H Creatinine 3.07 H Estim Creat Clear Calc 19.74 Est GFR (MDRD) Af Amer 26 L Est GFR (MDRD) Non-Af 21 L BUN/Creatinine Ratio 12.4 Glucose 135 H Calcium 7.9 L POC Glucose 06/23/18 06/23/18 06/22/18 06:37 02:20 21:29 POC Glucose 134 H 146 H 154 H 06/22/18 06/22/18 17:42 14:48 POC Glucose 231 H 209 H Medical Necessity - Tobacco Use Smoking Status: Former smoker Assessment/Plan All Active Problems (Last Reviewed 06/21/18 @ 10:38 by Rico Ackerman MD) Acute encephalopathy (Acute) Hypoglycemia (Acute) Community acquired pneumonia (Acute) Acute on chronic systolic (congestive) heart failure (Acute) Chest pain (Resolved) NSTEMI (non-ST elevated myocardial infarction) (Resolved 06/05/18) 1. ESRD due to diabetic nephropathy. Hemodialysis today #3. Outpt dialysis scheduled for Monday 6:50am. Ok to dc home after dialysis today. Await hepatitis profile. 2. Encephalopathy with slurred speech improved. 3. Diabetes mellitus type 2 primary management. 4. Anemia hemoglobin stable 5. Hypertension with stable blood pressures
--- NOTE | 2018-06-23 11:33 | CM.UR ---
Met face to face with patient. Instructed on dialysis schedule. Gave printout of [facility] address, phone number and hours open. Wrote his schedule on it. Explained if Hep panel not back by late Monday they will call him to give him new start date. Verb understanding. Deanna Oseguera RN, [facility].
[2018-06-23] MEDS: Insulin Lispro 100 UNIT/ML INSULN.PEN SQ (11:41)
[2018-06-23 12:05] LABS: Bedside Glucose 198 mg/dL (70-110)
[2018-06-23] MEDS: Epoetin Alfa epbx 10,000 UNITS/ML 10000 UNIT IV (16:36)
[2018-06-23] MEDS: Heparin 10,000 UNITS/10 ML Vial IV (16:37)
[2018-06-23 16:45] LABS: Bedside Glucose 87 mg/dL (70-110)
--- NOTE | 2018-06-23 17:08 | DIALYSIS ---
Hemodialysis x 3.5 hours complete. UF 2 liters. Patient tolerated treatment well, stable vital signs throughout and post dialysis.
[2018-06-23] MEDS: Mirtazapine 15 MG Tablet PO (21:40)
[2018-06-23] MEDS: MELATONIN 3 MG TABLET PO (21:40)
[2018-06-23 23:06] LABS: Bedside Glucose 144 mg/dL (70-110)
[2018-06-24] VITALS (14 sets, daily range): BP systolic 142–165; BP diastolic 69–80; PULSE 77–92; RESP 17–18; TEMP 36.5–37; O2SAT 92–97
[2018-06-24] MEDS: Mag Hydrox/Al Hydrox/Simeth 30 ML UDC PO ×2 (05:48→21:48)
[2018-06-24] MEDS: Sucralfate 1 GM Tablet PO ×2 (05:49→15:40)
[2018-06-24] MEDS: hydrALAZINE 50 MG Tablet PO ×3 (05:49→21:42)
[2018-06-24] MEDS: Pantoprazole Sodium 40 MG Tablet PO ×2 (05:49→15:40)
[2018-06-24] MEDS: Heparin Injection (Vial) 5,000 UNIT/ML VIAL 5000 UNIT SC ×3 (05:50→21:42)
[2018-06-24 06:01] LABS: Anion Gap 10 (5-15); BUN 22 mg/dL (7-18); BUN/Creat Ratio 9.1 RATIO (10-20); Calcium,Total 7.8 mg/dL (8.5-10.1); Chloride 104 mmol/L (98-107); Creatinine, Serum 2.43 mg/dL (0.70-1.30); EST Glomerular Filtration Rate 28 mL/min (>60); Est Glom Filt Rate - Afr Amer 34 mL/min (>60); Estimated Creatinine Clearance 24.93 ml/min; Glucose 138 mg/dL (74-106); Potassium 3.5 mmol/L (3.5-5.1); Sodium Level 141 mmol/L (136-145)
[2018-06-24 06:13] LABS: Absolute Lymphocyte Count 0.57 X10^3/ul (0.83-4.51); Absolute Neutrophil Count 5.8 X10^3/uL (2.0-7.7); Basophil# 0.02 X10^3/uL; Basophil% 0.2 % (0-1); Eosinophil# 0.57 X10^3/uL; Eosinophils% 6.9 % (0-5); Hematocrit 30.6 % (40-54); Hemoglobin 9.8 g/dl (13.0-16.5); Lymphocyte # 0.57 X10^3/ul (4.0); Lymphocyte % 6.9 % (19-41); Mean Corpuscular Hgb 30.3 pg (27.0-32.0); Mean Corpuscular Volume 94.7 fL (80-94); Mean Platelet Vol. 11.8 fl (6.2-12.0); Monocyte# 1.27 X10^3/uL; Monocyte% 15.4 % (0-10); Neutrophil % 70.4 % (47-70); Platelet Count 87 K/mm3 (150-450); RBC Distribution Width CV 17.4 % (11.6-14.6); RBC Distribution Width SD 56.9 fl (35.1-43.9); Red Blood Count 3.23 M/mm3 (4.6-6.2); White Blood Count 8.3 K/mm3 (4.4-11.0)
[2018-06-24 06:14] LABS: Differential Indicated SCAN CRITERIA MET; POSITIVE COUNT NO; POSITIVE DIFFERENTIAL YES; POSITIVE MORPHOLOGY NO
[2018-06-24 06:56] LABS: Bedside Glucose 141 mg/dL (70-110)
[2018-06-24] MEDS: Allopurinol 100 MG Tablet PO (07:39)
[2018-06-24] MEDS: Aspirin E.C. 81 MG Tablet PO (07:39)
--- NOTE | 2018-06-24 10:10 | PCM.PN.HOSP ---
Patient Problems: Active and Suspected Problems (Last Reviewed 06/21/18 @ 10:38 by Rico Ackerman MD) Acute encephalopathy (Acute) Hypoglycemia (Acute) Subjective: Patient last dialysis session was on 06/23/2018. Currently awaiting hep B panel prior to discharge and subsequent initiation of dialysis as outpatient Objective: GENERAL: Cooperative not in distress HEENT: Atraumatic; moist oral mucosa EYES; Anicteric, Normal Conjunctiva NECK; supple, normal thyroid, distended JVD. RESPIRATORY: Diminished to auscultation bilaterally, CARDIOVASCULAR: Regular S1 S2, systolic murmur GI: soft, non-tender, normoactive bowel sounds, : No Renal angle tenderness; EXTREMITIES: Bilateral pedal edema, MUSCULOSKELETAL: No Joint Tenderness; NEURO: Awake; no lateralizing sign SKIN: No Rash PSYCH; flat affect Vitals/I&O's: Vital Signs Temp Pulse Resp BP Pulse Ox 98.2 F 92 18 149/80 H 96 06/24/18 05:45 06/24/18 07:11 06/24/18 05:45 06/24/18 05:49 06/24/18 07:15 Oxygen Flow Rate (L/min) 1 Oxygen Delivery Method Room Air Weight: 68.6 kg Body Mass Index (BMI) 24.4 Finger Stick Blood Glucose 111 Intake and Output for Last 24 Hours 06/22/18 06/23/18 06/24/18 23:59 23:59 23:59 Intake Total 891.4 / 891.4 990 / 990 120 / 120 Output Total 1315 / 1315 1625 / 1625 Balance -423.6 / -423.6 -635 / -635 120 / 120 Microbiology Past 72 Hours 06/21/18 07:25 Blood Culture (Wb) - Anticubital Left Blood Culture - Preliminary No growth in 48 hours. 06/21/18 07:15 Blood Culture (Wb) - Anticubital Right Blood Culture - Preliminary No growth in 48 hours. 06/21/18 09:18 Urine, Clean Catch Urine Culture - Final Culture exhibits no growth. Laboratory Results 06/23/18 11:25: POC Glucose 198 H 06/23/18 16:34: POC Glucose 87 06/23/18 21:31: POC Glucose 144 H 06/24/18 05:18: WBC 8.3, RBC 3.23 L, Hgb 9.8 L, Hct 30.6 L, MCV 94.7 H, MCH 30.3, MCHC 32.0, RDW 17.4 H, RDW Differential 56.9 H, Plt Count 87 L, MPV 11.8, Immature Gran % (Auto) 0.200, Neut % (Auto) 70.4 H, Lymph % (Auto) 6.9 L, [place] % (Auto) 15.4 H, Eos % (Auto) 6.9 H, Baso % (Auto) 0.2, Absolute Neuts (auto) 5.8, Absolute Lymphs (auto) 0.57 L, Total Counted Not Reportable 06/24/18 05:18: Sodium 141, Potassium 3.5, Chloride 104, Carbon Dioxide 27.0, Anion Gap 10, BUN 22 H, Creatinine 2.43 H, Estim Creat Clear Calc 24.93, Est GFR (MDRD) Af Amer 34 L, Est GFR (MDRD) Non-Af 28 L, BUN/Creatinine Ratio 9.1 L, Glucose 138 H, Calcium 7.8 L 06/24/18 06:38: POC Glucose 141 H Current Medications Acetaminophen (Tylenol) 650 mg PO Q6H PRN PRN PRN Reason: Mild Pain (1-3)/Temp > 100.7 F Al Hydroxide/Mg Hydroxide (Mylanta Ii) 30 ml PO Q6H PRN PRN PRN Reason: Gastric Burning Last Admin: 06/24/18 05:48 Dose: 30 ml Albuterol Sulfate (Ventolin Aerosols) 2.5 mg INHALATION Q2H PRN PRN PRN Reason: Shortness of Breath/Wheezing Allopurinol (Zyloprim) 100 mg PO DAILY@0800 [facility] Last Admin: 06/24/18 07:39 Dose: 100 mg Aspirin (Ecotrin) 81 mg PO DAILY@0800 [facility] Last Admin: 06/24/18 07:39 Dose: 81 mg Calcitriol (Rocaltrol) 0.25 mcg PO DAILY [facility] Last Admin: 06/23/18 08:03 Dose: 0.25 mcg Carvedilol (Coreg) 25 mg PO BID [facility] Last Admin: 06/23/18 21:40 Dose: 25 mg Clopidogrel Bisulfate (Plavix) 75 mg PO DAILY [facility] Last Admin: 06/23/18 08:03 Dose: 75 mg Dextrose (D50w Syringe) 0 gm IV X1 PRN; Protocol PRN Reason: Hypoglycemia Last Admin: 06/21/18 17:26 Dose: 12.5 gm Glucagon () 1 mg IM .X1 PRN PRN Reason: Hypoglycemia Guaifenesin (Robitussin) 20 ml PO Q4H PRN PRN PRN Reason: COUGH Heparin Sodium (Porcine) (Heparin Na) 5,000 unit SC Q8 [facility] Last Admin: 06/24/18 05:50 Dose: 5,000 unit Hydralazine HCl (Apresoline) 50 mg PO TID [facility] Last Admin: 06/24/18 05:49 Dose: 50 mg Insulin Human Lispro (Humalog Kwikpen (Bkc)) 0 unit SQ ACHS [facility]; Protocol Last Admin: 06/24/18 06:41 Dose: Not Given Isosorbide Mononitrate (Imdur) 30 mg PO DAILY [facility] Last Admin: 06/23/18 08:01 Dose: 30 mg Magnesium Hydroxide (Milk Of Magnesia) 30 ml PO DAILY PRN PRN PRN Reason: Constipation Melatonin (Melatonin) 3 mg PO QHS PRN PRN PRN Reason: INSOMNIA Last Admin: 06/23/18 21:40 Dose: 3 mg Mirtazapine (Remeron) 15 mg PO QHS [facility] Last Admin: 06/23/18 21:40 Dose: 15 mg Multivit/Ca Carb/B Cmplx/FA/Prenat (Nephrocaps, Renaphro) 1 capsule PO DAILY [facility] Last Admin: 06/23/18 08:01 Dose: 1 capsule Nitroglycerin (Nitrostat) 0.4 mg SUBLINGUAL Q5M PRN PRN Reason: CARDIAC/CHEST PAIN Ondansetron HCl (Zofran) 4 mg IV Q8H PRN PRN PRN Reason: NAUSEA/VOMITING Oxycodone HCl (Oxyir) 5 mg PO Q4H PRN PRN PRN Reason: Moderate Pain (4-6/10) Pantoprazole Sodium (Protonix) 40 mg PO BIDAC [facility] Last Admin: 06/24/18 05:49 Dose: 40 mg Promethazine HCl (Phenergan) 25 mg IM Q6H PRN PRN PRN Reason: Breakthrough nausea/vomiting Sodium Chloride () 5 - 15 ml IV UD PRN PRN Reason: SALINE FLUSH Last Admin: 06/22/18 02:45 Dose: 10 ml Sucralfate (Carafate) 1 gm PO BID@0700,1600 [facility] Last Admin: 06/24/18 05:49 Dose: 1 gm Venlafaxine HCl (Effexor Xr) 150 mg PO DAILY [facility] Last Admin: 06/23/18 08:01 Dose: 150 mg Medical Necessity - Tobacco Use Smoking Status: Former smoker Assessment/Plan All Active Problems (Last Reviewed 06/21/18 @ 10:38 by Rico Ackerman MD) Acute encephalopathy (Acute) Hypoglycemia (Acute) Community acquired pneumonia (Acute) Acute on chronic systolic (congestive) heart failure (Acute) Chest pain (Resolved) NSTEMI (non-ST elevated myocardial infarction) (Resolved 06/05/18) Patient is a 73-year-old gentleman w with multiple comorbidities including CAD status post CABG and subsequent PCI, stage V chronic kidney disease diabetes mellitus type 2 brought in with altered mental status. Patient found to be hypoglycemic. Patient in addition was found to have acute congestive heart failure admitted to monitored bed for further management 1. Acute metabolic encephalopathy secondary to hypoglycemia. Patient has underlying history of chronic kidney disease stage V and is also diabetic. Per patient's patient did take his insulin without much oral diet has his hypoglycemia. Patient was started on D5 for the emergency department admitted to monitored bed for subsequent management. His scheduled insulin held on admission. Patient blood glucose up to 197 as of 06/22/2018 2. Diabetes mellitus type 2 presented with hypoglycemia management as discussed above patient blood glucose up to 197 as of 06/22/2018 hypoglycemia resolved 3. Acute on chronic systolic heart failure patient has known CHF with reduced ejection fraction of 25%. Patient admitted to monitored bed placed on Lasix drip with consultation placed to cardiology. Of note patient was seen by cardiology as outpatient a day prior to his admission patient has been seen by cardiology his home meds adjusted with discontinuation of Cardizem and initiation of hydralazine 4. 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 Right internal jugular 19 cm pre-curved palindrome catheter placement dialysis initiated starting 06/22/2018 plan is for patient to continue outpatient dialysis with session scheduled for Tuesdays and Saturdays. 5. Coronary artery disease with previous CABG and subsequent PCI 6. 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 Hypertension-blood pressure controlled, home medications continued with dose adjustment as needed 8. Depression with anxiety ; patient on Effexor 9. Anemia secondary to anemia of chronic disorder monitoring H&H with plans to transfuse if patient becomes symptomatic or hemoglobin falls below 7 10. GERD on PPI 10. DVT prophylaxis on heparin Disposition: Home to initiate dialysis once hep B panel is obtained Code Visit Inpatient E&M: 94270 Subs Hosp L2
--- NOTE | 2018-06-24 10:13 | PN_ITS ---
Patient Problems: Active and Suspected Problems (Last Reviewed 06/21/18 @ 10:38 by Rico Ackerman MD) Acute encephalopathy (Acute) Hypoglycemia (Acute) Subjective: Patient last dialysis session was on 06/23/2018. Currently awaiting hep B panel prior to discharge and subsequent initiation of dialysis as outpatient Objective: GENERAL: Cooperative not in distress HEENT: Atraumatic; moist oral mucosa EYES; Anicteric, Normal Conjunctiva NECK; supple, normal thyroid, distended JVD. RESPIRATORY: Diminished to auscultation bilaterally, CARDIOVASCULAR: Regular S1 S2, systolic murmur GI: soft, non-tender, normoactive bowel sounds, : No Renal angle tenderness; EXTREMITIES: Bilateral pedal edema, MUSCULOSKELETAL: No Joint Tenderness; NEURO: Awake; no lateralizing sign SKIN: No Rash PSYCH; flat affect Vitals/I&O's: Vital Signs Temp Pulse Resp BP Pulse Ox 98.2 F 92 18 149/80 H 96 06/24/18 05:45 06/24/18 07:11 06/24/18 05:45 06/24/18 05:49 06/24/18 07:15 Oxygen Flow Rate (L/min) 1 Oxygen Delivery Method Room Air Weight: 68.6 kg Body Mass Index (BMI) 24.4 Finger Stick Blood Glucose 111 Intake and Output for Last 24 Hours 06/22/18 06/23/18 06/24/18 23:59 23:59 23:59 Intake Total 891.4 / 891.4 990 / 990 120 / 120 Output Total 1315 / 1315 1625 / 1625 Balance -423.6 / -423.6 -635 / -635 120 / 120 Microbiology Past 72 Hours 06/21/18 07:25 Blood Culture (Wb) - Anticubital Left Blood Culture - Preliminary No growth in 48 hours. 06/21/18 07:15 Blood Culture (Wb) - Anticubital Right Blood Culture - Preliminary No growth in 48 hours. 06/21/18 09:18 Urine, Clean Catch Urine Culture - Final Culture exhibits no growth. Laboratory Results 06/23/18 11:25: POC Glucose 198 H 06/23/18 16:34: POC Glucose 87 06/23/18 21:31: POC Glucose 144 H 06/24/18 05:18: WBC 8.3, RBC 3.23 L, Hgb 9.8 L, Hct 30.6 L, MCV 94.7 H, MCH 30.3, MCHC 32.0, RDW 17.4 H, RDW Differential 56.9 H, Plt Count 87 L, MPV 11.8, Immature Gran % (Auto) 0.200, Neut % (Auto) 70.4 H, Lymph % (Auto) 6.9 L, Amador % (Auto) 15.4 H, Eos % (Auto) 6.9 H, Baso % (Auto) 0.2, Absolute Neuts (auto) 5.8, Absolute Lymphs (auto) 0.57 L, Total Counted Not Reportable 06/24/18 05:18: Sodium 141, Potassium 3.5, Chloride 104, Carbon Dioxide 27.0, Anion Gap 10, BUN 22 H, Creatinine 2.43 H, Estim Creat Clear Calc 24.93, Est GFR (MDRD) Af Amer 34 L, Est GFR (MDRD) Non-Af 28 L, BUN/Creatinine Ratio 9.1 L, Glucose 138 H, Calcium 7.8 L 06/24/18 06:38: POC Glucose 141 H Current Medications Acetaminophen (Tylenol) 650 mg PO Q6H PRN PRN PRN Reason: Mild Pain (1-3)/Temp > 100.7 F Al Hydroxide/Mg Hydroxide (Mylanta Ii) 30 ml PO Q6H PRN PRN PRN Reason: Gastric Burning Last Admin: 06/24/18 05:48 Dose: 30 ml Albuterol Sulfate (Ventolin Aerosols) 2.5 mg INHALATION Q2H PRN PRN PRN Reason: Shortness of Breath/Wheezing Allopurinol (Zyloprim) 100 mg PO DAILY@0800 [facility] Last Admin: 06/24/18 07:39 Dose: 100 mg Aspirin (Ecotrin) 81 mg PO DAILY@0800 [facility] Last Admin: 06/24/18 07:39 Dose: 81 mg Calcitriol (Rocaltrol) 0.25 mcg PO DAILY [facility] Last Admin: 06/23/18 08:03 Dose: 0.25 mcg Carvedilol (Coreg) 25 mg PO BID [facility] Last Admin: 06/23/18 21:40 Dose: 25 mg Clopidogrel Bisulfate (Plavix) 75 mg PO DAILY [facility] Last Admin: 06/23/18 08:03 Dose: 75 mg Dextrose (D50w Syringe) 0 gm IV X1 PRN; Protocol PRN Reason: Hypoglycemia Last Admin: 06/21/18 17:26 Dose: 12.5 gm Glucagon () 1 mg IM .X1 PRN PRN Reason: Hypoglycemia Guaifenesin (Robitussin) 20 ml PO Q4H PRN PRN PRN Reason: COUGH Heparin Sodium (Porcine) (Heparin Na) 5,000 unit SC Q8 [facility] Last Admin: 06/24/18 05:50 Dose: 5,000 unit Hydralazine HCl (Apresoline) 50 mg PO TID [facility] Last Admin: 06/24/18 05:49 Dose: 50 mg Insulin Human Lispro (Humalog Kwikpen (Bkc)) 0 unit SQ ACHS [facility]; Protocol Last Admin: 06/24/18 06:41 Dose: Not Given Isosorbide Mononitrate (Imdur) 30 mg PO DAILY [facility] Last Admin: 06/23/18 08:01 Dose: 30 mg Magnesium Hydroxide (Milk Of Magnesia) 30 ml PO DAILY PRN PRN PRN Reason: Constipation Melatonin (Melatonin) 3 mg PO QHS PRN PRN PRN Reason: INSOMNIA Last Admin: 06/23/18 21:40 Dose: 3 mg Mirtazapine (Remeron) 15 mg PO QHS [facility] Last Admin: 06/23/18 21:40 Dose: 15 mg Multivit/Ca Carb/B Cmplx/FA/Prenat (Nephrocaps, Renaphro) 1 capsule PO DAILY [facility] Last Admin: 06/23/18 08:01 Dose: 1 capsule Nitroglycerin (Nitrostat) 0.4 mg SUBLINGUAL Q5M PRN PRN Reason: CARDIAC/CHEST PAIN Ondansetron HCl (Zofran) 4 mg IV Q8H PRN PRN PRN Reason: NAUSEA/VOMITING Oxycodone HCl (Oxyir) 5 mg PO Q4H PRN PRN PRN Reason: Moderate Pain (4-6/10) Pantoprazole Sodium (Protonix) 40 mg PO BIDAC [facility] Last Admin: 06/24/18 05:49 Dose: 40 mg Promethazine HCl (Phenergan) 25 mg IM Q6H PRN PRN PRN Reason: Breakthrough nausea/vomiting Sodium Chloride () 5 - 15 ml IV UD PRN PRN Reason: SALINE FLUSH Last Admin: 06/22/18 02:45 Dose: 10 ml Sucralfate (Carafate) 1 gm PO BID@0700,1600 [facility] Last Admin: 06/24/18 05:49 Dose: 1 gm Venlafaxine HCl (Effexor Xr) 150 mg PO DAILY [facility] Last Admin: 06/23/18 08:01 Dose: 150 mg Medical Necessity - Tobacco Use Smoking Status: Former smoker Assessment/Plan All Active Problems (Last Reviewed 06/21/18 @ 10:38 by Rico Ackerman MD) Acute encephalopathy (Acute) Hypoglycemia (Acute) Community acquired pneumonia (Acute) Acute on chronic systolic (congestive) heart failure (Acute) Chest pain (Resolved) NSTEMI (non-ST elevated myocardial infarction) (Resolved 06/05/18) Patient is a 73-year-old gentleman w with multiple comorbidities including CAD status post CABG and subsequent PCI, stage V chronic kidney disease diabetes mellitus type 2 brought in with altered mental status. Patient found to be hypoglycemic. Patient in addition was found to have acute congestive heart failure admitted to monitored bed for further management 1. Acute metabolic encephalopathy secondary to hypoglycemia. Patient has underlying history of chronic kidney disease stage V and is also diabetic. Per patient's patient did take his insulin without much oral diet has his hypoglycemia. Patient was started on D5 for the emergency department admitted to monitored bed for subsequent management. His scheduled insulin held on admission. Patient blood glucose up to 197 as of 06/22/2018 2. Diabetes mellitus type 2 presented with hypoglycemia management as discussed above patient blood glucose up to 197 as of 06/22/2018 hypoglycemia resolved 3. Acute on chronic systolic heart failure patient has known CHF with reduced ejection fraction of 25%. Patient admitted to monitored bed placed on Lasix drip with consultation placed to cardiology. Of note patient was seen by cardiology as outpatient a day prior to his admission patient has been seen by cardiology his home meds adjusted with discontinuation of Cardizem and initiation of hydralazine 4. 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 Right internal jugular 19 cm pre-curved palindrome cat heter placement dialysis initiated starting 06/22/2018 plan is for patient to continue outpatient dialysis with session scheduled for Tuesdays and Saturdays. 5. Coronary artery disease with previous CABG and subsequent PCI 6. 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 Hypertension-blood pressure controlled, home medications continued with dose adjustment as needed 8. Depression with anxiety ; patient on Effexor 9. Anemia secondary to anemia of chronic disorder monitoring H&H with plans to transfuse if patient becomes symptomatic or hemoglobin falls below 7 10. GERD on PPI 10. DVT prophylaxis on heparin Disposition: Home to initiate dialysis once hep B panel is obtained Code Visit Inpatient E&M: 06228 Subs Hosp L2
[2018-06-24] MEDS: Carvedilol 25 MG Tablet PO ×2 (10:36→21:42)
[2018-06-24] MEDS: Venlafaxine XR 150 MG Capsule PO (10:36)
[2018-06-24] MEDS: Clopidogrel Bisulfate 75 MG Tablet PO (10:36)
[2018-06-24] MEDS: Folic Acid/Vitamin B Comp W-C 1 Capsule 1 CAP PO (10:36)
[2018-06-24] MEDS: Calcitriol 0.25 MCG Capsule PO (10:36)
[2018-06-24] MEDS: Isosorbide Mononitrate 30 MG Tablet PO (10:36)
[2018-06-24] MEDS: Insulin Lispro 100 UNIT/ML INSULN.PEN SQ ×2 (12:13→17:33)
[2018-06-24 12:15] LABS: Bedside Glucose 209 mg/dL (70-110)
[2018-06-24 16:36] LABS: Bedside Glucose 169 mg/dL (70-110)
[2018-06-24] MEDS: MELATONIN 3 MG TABLET PO (21:42)
[2018-06-24] MEDS: Mirtazapine 15 MG Tablet PO (21:42)
[2018-06-24 22:35] LABS: Bedside Glucose 134 mg/dL (70-110)
[2018-06-25] VITALS: PULSE 78
[2018-06-25 03:50] VITALS: BP 147/61; PULSE 83; RESP 20; TEMP 36.7; O2SAT 96
[2018-06-25 04:00] VITALS: PULSE 92
[2018-06-25] MEDS: Mag Hydrox/Al Hydrox/Simeth 30 ML UDC PO (06:20)
[2018-06-25 06:21] VITALS: BP 147/63; PULSE 83
[2018-06-25] MEDS: Heparin Injection (Vial) 5,000 UNIT/ML VIAL 5000 UNIT SC (06:21)
[2018-06-25] MEDS: hydrALAZINE 50 MG Tablet PO (06:21)
[2018-06-25] MEDS: Sucralfate 1 GM Tablet PO (06:21)
[2018-06-25 06:58] VITALS: PULSE 90
[2018-06-25] MEDS: Insulin Lispro 100 UNIT/ML INSULN.PEN SQ ×2 (07:07→11:53)
[2018-06-25 07:11] LABS: Bedside Glucose 151 mg/dL (70-110)
[2018-06-25] MEDS: Ondansetron 4 MG/2 ML Vial IV (08:01)
[2018-06-25] MEDS: Carvedilol 25 MG Tablet PO (08:14)
[2018-06-25] MEDS: Allopurinol 100 MG Tablet PO (08:15)
[2018-06-25] MEDS: Aspirin E.C. 81 MG Tablet PO (08:15)
[2018-06-25] MEDS: Isosorbide Mononitrate 30 MG Tablet PO (08:15)
[2018-06-25] MEDS: Pantoprazole Sodium 40 MG Tablet PO (08:15)
[2018-06-25] MEDS: Venlafaxine XR 150 MG Capsule PO (08:16)
[2018-06-25] MEDS: Clopidogrel Bisulfate 75 MG Tablet PO (08:17)
[2018-06-25] MEDS: Folic Acid/Vitamin B Comp W-C 1 Capsule 1 CAP PO (08:17)
[2018-06-25] MEDS: Calcitriol 0.25 MCG Capsule PO (08:17)
[2018-06-25 08:19] VITALS: BP 119/77; PULSE 120; RESP 19; TEMP 36.8; O2SAT 96
--- NOTE | 2018-06-25 08:27 | EKG12_ITS ---
Test Reason : RHYTHM Blood Pressure : / mmHG Vent. Rate : 086 BPM Atrial Rate : 086 BPM P-R Int : 160 ms QRS Dur : 174 ms QT Int : 442 ms P-R-T Axes : 053 076 266 degrees QTc Int : 528 ms Sinus rhythm with frequent Premature ventricular complexes Possible Left atrial enlargement Left bundle branch block Abnormal ECG Confirmed by RODRICK CABRERA, ALAINA ([id number]), editor managing newspaper YINKA CHRISTOPHER ([id number]) on 06/27/2018 1:54:32 PM Referred By: Ángel Atkinson Confirmed By:ALAINA MENSAH MD
--- NOTE | 2018-06-25 09:12 | PCM.CONS.R ---
Consultation - Renal 06/25/18 PCP/ Referring MD: Requesting physician: [] Primary care physician: Prasad Concepcion III, MD - History of Present Illness History of Present Illness: The patient is a 73 year old M [] - Allergies Allergies: Allergies atorvastatin calcium [From Lipitor] Allergy (Verified 06/21/18 06:50) Pain in joints verapamil [From Covera-HS] Allergy (Verified 06/21/18 06:50) passes out lisinopril Adverse Reaction (Verified 06/21/18 06:50) Other muscle pain Niacin Preparations Adverse Reaction (Verified 06/21/18 06:50) Pain in joints Cholesterol Meds Adverse Reaction (Uncoded 06/21/18 06:50) Pain in joints - Current Medications Current Medications: Current Medications Acetaminophen (Tylenol) 650 mg PO Q6H PRN PRN PRN Reason: Mild Pain (1-3)/Temp > 100.7 F Al Hydroxide/Mg Hydroxide (Mylanta Ii) 30 ml PO Q6H PRN PRN PRN Reason: Gastric Burning Last Admin: 06/25/18 06:20 Dose: 30 ml Albuterol Sulfate (Ventolin Aerosols) 2.5 mg INHALATION Q2H PRN PRN PRN Reason: Shortness of Breath/Wheezing Allopurinol (Zyloprim) 100 mg PO DAILY@0800 [facility] Last Admin: 06/25/18 08:15 Dose: 100 mg Aspirin (Ecotrin) 81 mg PO DAILY@0800 [facility] Last Admin: 06/25/18 08:15 Dose: 81 mg Calcitriol (Rocaltrol) 0.25 mcg PO DAILY [facility] Last Admin: 06/25/18 08:17 Dose: 0.25 mcg Carvedilol (Coreg) 25 mg PO BID [facility] Last Admin: 06/25/18 08:14 Dose: 25 mg Clopidogrel Bisulfate (Plavix) 75 mg PO DAILY [facility] Last Admin: 06/25/18 08:17 Dose: 75 mg Dextrose (D50w Syringe) 0 gm IV X1 PRN; Protocol PRN Reason: Hypoglycemia Last Admin: 06/21/18 17:26 Dose: 12.5 gm Glucagon () 1 mg IM .X1 PRN PRN Reason: Hypoglycemia Guaifenesin (Robitussin) 20 ml PO Q4H PRN PRN PRN Reason: COUGH Heparin Sodium (Porcine) (Heparin Na) 5,000 unit SC Q8 [facility] Last Admin: 06/25/18 06:21 Dose: 5,000 unit Hydralazine HCl (Apresoline) 50 mg PO TID [facility] Last Admin: 06/25/18 06:21 Dose: 50 mg Insulin Human Lispro (Humalog Kwikpen (Bkc)) 0 unit SQ ACHS [facility]; Protocol Last Admin: 06/25/18 07:07 Dose: 1 unit Isosorbide Mononitrate (Imdur) 30 mg PO DAILY [facility] Last Admin: 06/25/18 08:15 Dose: 30 mg Magnesium Hydroxide (Milk Of Magnesia) 30 ml PO DAILY PRN PRN PRN Reason: Constipation Melatonin (Melatonin) 3 mg PO QHS PRN PRN PRN Reason: INSOMNIA Last Admin: 06/24/18 21:42 Dose: 3 mg Mirtazapine (Remeron) 15 mg PO QHS [facility] Last Admin: 06/24/18 21:42 Dose: 15 mg Multivit/Ca Carb/B Cmplx/FA/Prenat (Nephrocaps, Renaphro) 1 capsule PO DAILY [facility] Last Admin: 06/25/18 08:17 Dose: 1 capsule Nitroglycerin (Nitrostat) 0.4 mg SUBLINGUAL Q5M PRN PRN Reason: CARDIAC/CHEST PAIN Ondansetron HCl (Zofran) 4 mg IV Q8H PRN PRN PRN Reason: NAUSEA/VOMITING Last Admin: 06/25/18 08:01 Dose: 4 mg Oxycodone HCl (Oxyir) 5 mg PO Q4H PRN PRN PRN Reason: Moderate Pain (4-6/10) Pantoprazole Sodium (Protonix) 40 mg PO BIDAC [facility] Last Admin: 06/25/18 08:15 Dose: 40 mg Promethazine HCl (Phenergan) 25 mg IM Q6H PRN PRN PRN Reason: Breakthrough nausea/vomiting Sodium Chloride () 5 - 15 ml IV UD PRN PRN Reason: SALINE FLUSH Last Admin: 06/22/18 02:45 Dose: 10 ml Sucralfate (Carafate) 1 gm PO BID@0700,1600 [facility] Last Admin: 06/25/18 06:21 Dose: 1 gm Venlafaxine HCl (Effexor Xr) 150 mg PO DAILY [facility] Last Admin: 06/25/18 08:16 Dose: 150 mg - Past Medical History Past Medical History (Chronic Problems): Chronic Problems (Last Reviewed 06/21/18 @ 10:38 by Rico Ackerman MD) Chronic renal failure, stage 5 (Chronic) Anemia in chronic kidney disease (CKD) (Chronic) Stented coronary artery (Chronic 06/06/18) Mildly elevated troponin: cutting balloon angioplasty ([place] Cutting Balloon 3.0 X 10 mm) and ALBERTO (Synergy 4.0 X 8 mm) placed from proximal to mid left main per Dr. Bustos, [facility] 11/08/2017 Triple vessel CAD of the LAD, RCA, LCX Critical lesion in SVG to RCA distal to previous stent Successful PTCA/ALBERTO distal SVG to RCA with filter wire assistance with a 3.0 x 16 Promus Synergy, post dilated with a 3.0 x 8 NC Balloon; 85%-->0%, no dissection or distal embolization. No additional PCI of [place] RCA or LCX ISR done today due to CRI. 06/06/[address] Barnard @ [facility] History of right and left heart catheterization (Chronic 11/08/17) Per Dr. Bustos, [facility]>followed by cutting ballon angioplasty and ALBERTO to left main CAD (coronary artery disease) (Chronic) S/P PTCA (percutaneous transluminal coronary angioplasty) (Chronic) Implantable cardioverter-defibrillator (ICD) in situ (Chronic) Ischemic cardiomyopathy (Chronic) 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 Buitrago @ [facility] History of left heart catheterization (Chronic 09/06/17) Atherosclerotic heart disease of [place] coronary artery with other forms of angina pectoris (Chronic) CHARLES to LAD, SVG to RCA and SVG to CX per Dr. Buitrago @ [facility] 09/27/06. Mildly elevated troponin: cutting balloon angioplasty ([place] Cutting Balloon 3.0 X 10 mm) and ALBERTO (Synergy 4.0 X 8 mm) placed from proximal to mid left main per Dr. 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 - Social History Smoking Status: Former smoker - Family History Sibling Family History: Family History (Last Reviewed 04/20/18 @ 11:02 by Bessy Lr) Unknown No problems noted. History Items: Diabetes, Heart Disease, Renal Disease Maternal Family History: Family History (Last Reviewed 04/20/18 @ 11:02 by Bessy Lr) Unknown No problems noted. History Items: Heart Disease Paternal Family History: Family History (Last Reviewed 04/20/18 @ 11:02 by Bessy Lr) Unknown No problems noted. History Items: Heart Disease Patient Problems: Active and Suspected Problems (Last Reviewed 06/21/18 @ 10:38 by Rico Ackerman MD) Acute encephalopathy (Acute) Hypoglycemia (Acute) - Physical Exam Vital Signs Temp Pulse Resp BP Pulse Ox 98.3 F 120 H 19 H 119/77 96 06/25/18 08:19 06/25/18 08:19 06/25/18 08:19 06/25/18 08:19 06/25/18 08:19 Oxygen Flow Rate (L/min) 2 Oxygen Delivery Method Nasal Cannula Weight: 66.5 kg Body Mass Index (BMI) 24.4 Finger Stick Blood Glucose 111 Intake and Output for Last 24 Hours 06/23/18 06/24/18 06/25/18 23:59 23:59 23:59 Intake Total 990 / 990 940 / 940 240 / 240 Output Total 1625 / 1625 650 / 650 300 / 300 Balance -635 / -635 290 / 290 -60 / -60 Microbiology Past 72 Hours 06/21/18 07:25 Blood Culture - Preliminary Blood Culture (Wb) - Anticubital Left No growth in 48 hours. 06/21/18 07:15 Blood Culture - Preliminary Blood Culture (Wb) - Anticubital Right No growth in 48 hours. 06/21/18 09:18 Urine Culture - Final Urine, Clean Catch Culture exhibits no growth. POC Glucose 06/25/18 06/24/18 06/24/18 06:39 21:44 16:31 POC Glucose 151 H 134 H 169 H 06/24/18 12:06 POC Glucose 209 H Assessment/Plan All Active Problems (Last Reviewed 06/21/18 @ 10:38 by Rico Ackerman MD) Acute encephalopathy (Acute) Hypoglycemia (Acute) Community acquired pneumonia (Acute) Acute on chronic systolic (congestive) heart failure (Acute) Chest pain (Resolved) NSTEMI (non-ST elevated myocardial infarction) (Resolved 06/05/18)
--- NOTE | 2018-06-25 09:32 | CASEMGMT ---
Addendum entered by Meg Chavira 06/25/18 11:37: Pt and updated on all at this time and voice understanding. states that she will be transporting pt for the first several sessions. Pt/ voice no further questions/concerns/needs at this time. Tiffanie HOWARD CM Original Note: Addendum entered by Meg Chavira 06/25/18 09:43: Per Dr. Royal, pt is set up for a T,Th,Sat at 0630. Call to [facility] and spoke with Rolly regarding pt. Per Dr. Royal, pt should discharge today and will start dialysis tomorrow. Rolly voices understanding at this time and hep panel faxed to him at this time. This RN CM will notify them if plans change at all. Rolly states that he will fax schedule letter for pt to this RN CM at this time. Tiffanie HOWARD CM Original Note: Hep panel obtained after call to lab and faxed to [facility] at this time. Tiffanie HOWARD CM
--- NOTE | 2018-06-25 09:44 | PCM.PN.REN ---
Patient Problems: Active and Suspected Problems (Last Reviewed 06/21/18 @ 10:38 by Rico Ackerman MD) Acute encephalopathy (Acute) Hypoglycemia (Acute) Subjective: denies nausea, vomting. Appetite poor. Denies CP, SOB, edema - Physical Exam General: Alert, Oriented x3 Lungs: Clear to auscultation Cardiovascular: Regular rate Extremities: No edema Vital Signs Temp Pulse Resp BP Pulse Ox 98.3 F 120 H 19 H 119/77 96 06/25/18 08:19 06/25/18 08:19 06/25/18 08:19 06/25/18 08:06/25/18 08:19 Oxygen Flow Rate (L/min) 2 Oxygen Delivery Method Nasal Cannula Weight: 66.5 kg Body Mass Index (BMI) 24.4 Finger Stick Blood Glucose 111 Intake and Output for Last 24 Hours 06/23/18 06/24/18 06/25/18 23:59 23:59 23:59 Intake Total 990 / 990 940 / 940 240 / 240 Output Total 1625 / 1625 650 / 650 300 / 300 Balance -635 / -635 290 / 290 -60 / -60 Microbiology Past 72 Hours 06/21/18 07:25 Blood Culture - Preliminary Blood Culture (Wb) - Anticubital Left No growth in 48 hours. 06/21/18 07:15 Blood Culture - Preliminary Blood Culture (Wb) - Anticubital Right No growth in 48 hours. 06/21/18 09:18 Urine Culture - Final Urine, Clean Catch Culture exhibits no growth. POC Glucose 06/25/18 06/24/18 06/24/18 06:39 21:44 16:31 POC Glucose 151 H 134 H 169 H 06/24/18 12:06 POC Glucose 209 H Medical Necessity - Tobacco Use Smoking Status: Former smoker Assessment/Plan All Active Problems (Last Reviewed 06/21/18 @ 10:38 by Rico Ackerman MD) Acute encephalopathy (Acute) Hypoglycemia (Acute) Community acquired pneumonia (Acute) Acute on chronic systolic (congestive) heart failure (Acute) Chest pain (Resolved) NSTEMI (non-ST elevated myocardial infarction) (Resolved 06/05/18) 1. ESRD due to diabetic nephropathy. Dialysis TTS, next dialysis Tues/ OK to dc to home 2. Encephalopathy with slurred speech improved. 3. Diabetes mellitus type 2 primary management. 4. Anemia hemoglobin stable 5. Hypertension with stable blood pressures
--- NOTE | 2018-06-25 11:57 | DCINST_ITS ---
- Discharge Diagnoses Current Active Problems: Current Active and Chronic Problems (Last Reviewed 06/21/18 @ 10:38 by Rico Ackerman MD) Acute encephalopathy (Acute) Hypoglycemia (Acute) Chronic renal failure, stage 5 (Chronic) You will use the following diet at home:: Cardiac Your food should be the consistency of: Regular Your liquids should be the consistency of: Regular/Thin Discharge Activity: Return to Normal Activity Call your doctor if you observe: Fever of 101 or Higher, Shortness of breath, Dizziness, Fainting spells, Swelling in the ankles, Chest pain, Increased palpitations (irregular heartbeat) Allergies/Adverse Reactions: Allergies atorvastatin calcium [From Lipitor] Allergy (Verified 06/21/18 06:50) Pain in joints verapamil [From Covera-HS] Allergy (Verified 06/21/18 06:50) passes out lisinopril Adverse Reaction (Verified 06/21/18 06:50) Other muscle pain Niacin Preparations Adverse Reaction (Verified 06/21/18 06:50) Pain in joints Cholesterol Meds Adverse Reaction (Uncoded 06/21/18 06:50) Pain in joints Medications to take at Discharge Clopidogrel Bisulfate [Plavix] 75 mg PO DAILY #0 12/04/15 Carvedilol [Coreg (Beta Pedro)] 25 mg PO BID #90 tab 09/08/17 Aspirin E.C. [Ecotrin] 81 mg PO DAILY 11/07/17 Venlafaxine HCl [Venlafaxine HCl ER] 150 mg PO DAILY 11/07/17 allopurinol 100 mg tablet 100 mg PO DAILY tab 11/21/17 pantoprazole 40 mg tablet,delayed release 40 mg PO BIDAC 11/21/17 isosorbide mononitrate ER 30 mg tablet,extended release 24 hr 30 mg PO DAILY 11/27/17 calcitriol 0.25 mcg capsule 0.25 mcg PO DAILY cap 04/20/18 Sucralfate [Carafate] 1 gm PO BIDCM 06/02/18 Nitroglycerin (INPATIENT USE) [Nitrostat] 0.4 mg SUBLINGUAL Q5M PRN #1 bottle 06/07/18 Mirtazapine [Remeron] 15 mg PO QHS 06/21/18 Insulin Glargine,Hum.rec.anlog [Lantus] 10 unit SQ BREAKFAST #0 06/25/18 Losartan Potassium [Cozaar] 25 mg PO DAILY #30 tablet 06/25/18 hydrALAZINE [Apresoline] 25 mg PO TID tablet 06/25/18 The following prescriptions were given: Losartan Potassium [Cozaar] 25 mg PO DAILY #30 tablet Primary Care Physician: Prasad Concepcion III, MD [Primary Care Provider] - Please follow up with your Primary Care Physician in: 3-5 days Test Results: Test results from this visit will be discussed in further detail at your follow- up appointment, if applicable. Please Follow Up With: Tracey Royal DO
[2018-06-25 12:05] LABS: Bedside Glucose 196 mg/dL (70-110)
--- NOTE | 2018-06-25 12:33 | PHA.DC.COU ---
Pharmacy Services has performed discharge medication counseling for this patient. The patient was counseled on the following discharge medications and changes in medications for homegoing review. 1. LOSARTAN 25MG PO DAILY The Reason for Use, instructions for use, and potential side effects were reviewed for all new medications. The patient's questions regarding all of their medications were answered. The patient demonstrated some understanding but would benefit from further education and reinforcement. Home Medications Clopidogrel Bisulfate [Plavix] 75 mg PO DAILY #0 12/04/15 Carvedilol [Coreg (Beta Pedro)] 25 mg PO BID #90 tab 09/08/17 Aspirin E.C. [Ecotrin] 81 mg PO DAILY 11/07/17 Venlafaxine HCl [Venlafaxine HCl ER] 150 mg PO DAILY 11/07/17 allopurinol 100 mg tablet 100 mg PO DAILY tab 11/21/17 pantoprazole 40 mg tablet,delayed release 40 mg PO BIDAC 11/21/17 isosorbide mononitrate ER 30 mg tablet,extended release 24 hr 30 mg PO DAILY 11/27/17 calcitriol 0.25 mcg capsule 0.25 mcg PO DAILY cap 04/20/18 Sucralfate [Carafate] 1 gm PO BIDCM 06/02/18 Nitroglycerin (INPATIENT USE) [Nitrostat] 0.4 mg SUBLINGUAL Q5M PRN #1 bottle 06/07/18 Mirtazapine [Remeron] 15 mg PO QHS 06/21/18 Insulin Glargine,Hum.rec.anlog [Lantus] 10 unit SQ BREAKFAST #0 06/25/18 Losartan Potassium [Cozaar] 25 mg PO DAILY #30 tablet 06/25/18 hydrALAZINE [Apresoline] 25 mg PO TID tablet 06/25/18
--- NOTE | 2018-06-25 12:46 | PCM.DC.SUM ---
Discharge Date and Diagnosis - Problem List Patient Problems: Active and Suspected Problems (Last Reviewed 06/21/18 @ 10:38 by Rico Ackerman MD) Acute encephalopathy (Acute) Hypoglycemia (Acute) Date of Admission: 06/21/18 Date of Discharge: 06/25/18 - Primary Discharge Diagnosis Active and Suspected Problems (Last Reviewed 06/21/18 @ 10:38 by Rico Ackerman MD) Acute encephalopathy (Acute) Hypoglycemia (Acute) - Secondary Discharge Diagnosis Chronic Problems (Last Reviewed 06/21/18 @ 10:38 by Rico Ackerman MD) Chronic renal failure, stage 5 (Chronic) Anemia in chronic kidney disease (CKD) (Chronic) Stented coronary artery (Chronic 06/06/18) Mildly elevated troponin: cutting balloon angioplasty ([place] Cutting Balloon 3.0 X 10 mm) and ALBERTO (Synergy 4.0 X 8 mm) placed from proximal to mid left main per Dr. Bustos, [facility] 11/08/2017 Triple vessel CAD of the LAD, RCA, LCX Critical lesion in SVG to RCA distal to previous stent Successful PTCA/ALBERTO distal SVG to RCA with filter wire assistance with a 3.0 x 16 Promus Synergy, post dilated with a 3.0 x 8 NC Balloon; 85%-->0%, no dissection or distal embolization. No additional PCI of [place] RCA or LCX ISR done today due to CRI. 06/06/[address] Barnard @ [facility] History of right and left heart catheterization (Chronic 11/08/17) Per Dr. Bustos, [facility]>followed by cutting ballon angioplasty and ALBERTO to left main CAD (coronary artery disease) (Chronic) S/P PTCA (percutaneous transluminal coronary angioplasty) (Chronic) Implantable cardioverter-defibrillator (ICD) in situ (Chronic) Ischemic cardiomyopathy (Chronic) 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 Buitrago @ [facility] History of left heart catheterization (Chronic 09/06/17) Atherosclerotic heart disease of [place] coronary artery with other forms of angina pectoris (Chronic) CHARLES to LAD, SVG to RCA and SVG to CX per Dr. Buitrago @ [facility] 09/27/06. Mildly elevated troponin: cutting balloon angioplasty ([place] Cutting Balloon 3.0 X 10 mm) and ALBERTO (Synergy 4.0 X 8 mm) placed from proximal to mid left main per Dr. 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 Consults: Cardiology Nephrology Surgery Operations: None Procedures: 2-D Echocardiogram - Ejection fraction is 25% with severe global left ventricular systolic dysfunction and mild global right ventricular systolic dysfunction. Severe mitral valve insufficiency and severe pulmonary hypertension with pulmonary artery systolic pressure between 70 and 75 mmHg, Central line placement, Dialysis Summary of Care Provided: Per HPI: The patient is a 73 year old M with multiple comorbidities including CKD stage V, diabetes mellitus type 2, coronary artery disease with previous CABG and subsequent PCI with ischemic cardiomyopathy with known ejection fraction of 25% was brought to the emergency department by the with decreased level of 7 serial and patient slurring his speech. Per patient's patient had apparently refused to eat over the past couple of days. On the day of her presentation patient's felt patient was having a stroke the EMS squad was called who upon arrival found patient blood glucose to be in the 30s. Treatment was initiated on the field and patient brought to the emergency department. In the ED patient underwent subsequent evaluation with imaging studies which failed to demonstrate any acute CVA. Chest x-ray demonstrated small bilateral pleural effusion patient was found to have markedly elevated proBNP she was made to admit patient to a monitored bed for subsequent management. Hospital Course: 1. Acute metabolic encephalopathy secondary to hypoglycemia/IDDM 2/end-stage renal disease secondary to diabetic [id number]-old male presented with slurring of his speech and metabolic encephalopathy. When EMS arrived to his house he was significantly hypoglycemic and required to be on D5 in the ER to return his blood sugar to normal. Per the since he started dialysis last he was not eating very well and they continued his normal Lantus at 14 units daily. His blood sugars now currently in the 150s and he is only received 3 or 4 units of sliding scale insulin throughout the day, therefore will restart his Lantus at 10 units and I discussed with the and himself, that he is to test his blood sugar and if his blood sugar is still low then he can decrease his Lantus even further. Otherwise once his blood sugar stabilized his metabolic encephalopathy resolved. He is to undergo dialysis tomorrow morning which will be his main mode of diuresis given his EF is 25%. Also his anemia secondary to his chronic renal failure and will be continue to monitor as an outpatient by nephrology and his PCP. Also because he is not being initiated on dialysis hepatitis B panel was obtained which was negative. 2. Acute on chronic systolic heart failure/CAD status post CABG and stents/HTN-he recently had stents placed a couple weeks ago and is on aspirin and Plavix which he will continue, even though he has a dialysis catheter placed in the right IJ. Will start him on losartan for afterload reduction since he is on dialysis now permanently. He is on hydralazine 50 mg 3 times daily which we will decrease to 25 mg 3 times daily and can be weaned as an outpatient by his PCP. Otherwise we will continue with his other home medications including Coreg and Imdur. This plan was discussed with the patient and his family and he demonstrated understanding. Patient Problems: Active and Suspected Problems (Last Reviewed 06/21/18 @ 10:38 by Rico Ackerman MD) Acute encephalopathy (Acute) Hypoglycemia (Acute) - Physical Exam General: Alert, Oriented x3, Cooperative, No apparent distress HEENT: Atraumatic, PERRLA, EOMI, Normocephalic Oral: Moist Mucosa Neck: Supple, No JVD Lungs: Clear to auscultation, Normal air movement, No rhonchi, No wheeze, No rales, Diminished Cardiovascular: Regular rate, Regular Rhythm, Normal S1, Normal S2, No murmurs Abdomen: Soft, Non Tender, Non-Distended, No Hepato-splenomegaly Extremities: No edema, Capillary Refill Less than 3 Seconds Skin: No rashes, No breakdown Neurological: Neuro grossly intact, Sensory exam intact to light touch and pain Psych/Mental Status: Normal Affect, Appropriate Vital Signs Temp Pulse Resp BP Pulse Ox 98.3 F 120 H 19 H 119/77 96 06/25/18 08:19 06/25/18 08:19 06/25/18 08:19 06/25/18 08:19 06/25/18 08:19 Oxygen Flow Rate (L/min) 2 Oxygen Delivery Method Nasal Cannula Weight: 146 lb 9.718 oz Body Mass Index (BMI) 24.4 Finger Stick Blood Glucose 111 Intake and Output for Last 24 Hours 06/23/18 06/24/18 06/25/18 23:59 23:59 23:59 Intake Total 990 / 990 940 / 940 480 / 480 Output Total 1625 / 1625 650 / 650 400 / 400 Balance -635 / -635 290 / 290 80 / 80 Microbiology Past 72 Hours 06/21/18 07:25 Blood Culture - Preliminary Blood Culture (Wb) - Anticubital Left No growth in 48 hours. 06/21/18 07:15 Blood Culture - Preliminary Blood Culture (Wb) - Anticubital Right No growth in 48 hours. 06/21/18 09:18 Urine Culture - Final Urine, Clean Catch Culture exhibits no growth. POC Glucose 06/25/18 06/25/18 06/24/18 11:48 06:39 21:44 POC Glucose 196 H 151 H 134 H 06/24/18 16:31 POC Glucose 169 H Discharge Activity: Return to Normal Activity Call your doctor if you observe: Fever of 101 or Higher, Shortness of breath, Dizziness, Fainting spells, Swelling in the ankles, Chest pain, Increased palpitations (irregular heartbeat) Home Medications: Medications to take at Discharge Clopidogrel Bisulfate [Plavix] 75 mg PO DAILY #0 12/04/15 Carvedilol [Coreg (Beta Pedro)] 25 mg PO BID #90 tab 09/08/17 Aspirin E.C. [Ecotrin] 81 mg PO DAILY 11/07/17 Venlafaxine HCl [Venlafaxine HCl ER] 150 mg PO DAILY 11/07/17 allopurinol 100 mg tablet 100 mg PO DAILY tab 11/21/17 pantoprazole 40 mg tablet,delayed release 40 mg PO BIDAC 11/21/17 isosorbide mononitrate ER 30 mg tablet,extended release 24 hr 30 mg PO DAILY 11/27/17 calcitriol 0.25 mcg capsule 0.25 mcg PO DAILY cap 04/20/18 Sucralfate [Carafate] 1 gm PO BIDCM 06/02/18 Nitroglycerin (INPATIENT USE) [Nitrostat] 0.4 mg SUBLINGUAL Q5M PRN #1 bottle 06/07/18 Mirtazapine [Remeron] 15 mg PO QHS 06/21/18 Insulin Glargine,Hum.rec.anlog [Lantus] 10 unit SQ BREAKFAST #0 06/25/18 Losartan Potassium [Cozaar] 25 mg PO DAILY #30 tablet 06/25/18 hydrALAZINE [Apresoline] 25 mg PO TID tablet 06/25/18 Following Prescrptions Were Given to Patient: Losartan Potassium [Cozaar] 25 mg PO DAILY #30 tablet Primary Care Physician: Prasad Concepcion III, MD [Primary Care Provider] - Please follow up with your Primary Care Physician in: 3-5 days Please Follow Up With: Tracey Royal DO Please Follow Up With: Prasad Concepcion III, MD Disposition: Home Minutes spent on discharge:: 35 Patient Condition:: Stable Medical Necessity - Tobacco Use Smoking Status: Former smoker Meaningful Use Info Meaningful Use Diagnoses (Choose all that apply): CHF - CHF KIRTI/ARB ordered at discharge?: Yes Documented LVEF (%): 25 Code Visit Inpatient E&M: 44715 Disch Hosp
--- NOTE | 2018-06-25 13:00 | DS.PCM_ITS ---
Discharge Date and Diagnosis - Problem List Patient Problems: Active and Suspected Problems (Last Reviewed 06/21/18 @ 10:38 by Rico Ackerman MD) Acute encephalopathy (Acute) Hypoglycemia (Acute) Date of Admission: 06/21/18 Date of Discharge: 06/25/18 - Primary Discharge Diagnosis Active and Suspected Problems (Last Reviewed 06/21/18 @ 10:38 by Rico Ackerman MD) Acute encephalopathy (Acute) Hypoglycemia (Acute) - Secondary Discharge Diagnosis Chronic Problems (Last Reviewed 06/21/18 @ 10:38 by Rico Ackerman MD) Chronic renal failure, stage 5 (Chronic) Anemia in chronic kidney disease (CKD) (Chronic) Stented coronary artery (Chronic 06/06/18) Mildly elevated troponin: cutting balloon angioplasty ([place] Cutting Balloon 3.0 X 10 mm) and ALBERTO (Synergy 4.0 X 8 mm) placed from proximal to mid left main per Dr. Bustos, [facility] 11/08/2017 Triple vessel CAD of the LAD, RCA, LCX Critical lesion in SVG to RCA distal to previous stent Successful PTCA/ALBERTO distal SVG to RCA with filter wire assistance with a 3.0 x 16 Promus Synergy, post dilated with a 3.0 x 8 NC Balloon; 85%-->0%, no dissection or distal embolization. No additional PCI of [place] RCA or LCX ISR done today due to CRI. 06/06/[address] Barnard @ [facility] History of right and left heart catheterization (Chronic 11/08/17) Per Dr. Bustos, [facility]>followed by cutting ballon angioplasty and ALBERTO to left main CAD (coronary artery disease) (Chronic) S/P PTCA (percutaneous transluminal coronary angioplasty) (Chronic) Implantable cardioverter-defibrillator (ICD) in situ (Chronic) Ischemic cardiomyopathy (Chronic) 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 Buitrago @ [facility] History of left heart catheterization (Chronic 09/06/17) Atherosclerotic heart disease of [place] coronary artery with other forms of angina pectoris (Chronic) CHARLES to LAD, SVG to RCA and SVG to CX per Dr. Buitrago @ [facility] 09/27/06. Mildly elevated troponin: cutting balloon angioplasty ([place] Cutting Balloon 3.0 X 10 mm) and ALBERTO (Synergy 4.0 X 8 mm) placed from proximal to mid left main per Dr. 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 Consults: Cardiology Nephrology Surgery Operations: None Procedures: 2-D Echocardiogram - Ejection fraction is 25% with severe global left ventricular systolic dysfunction and mild global right ventricular systolic dysfunction. Severe mitral valve insufficiency and severe pulmonary hypertension with pulmonary artery systolic pressure between 70 and 75 mmHg, Central line placement, Dialysis Summary of Care Provided: Per HPI: The patient is a 73 year old M with multiple comorbidities including CKD stage V, diabetes mellitus type 2, coronary artery disease with previous CABG and subsequent PCI with ischemic cardiomyopathy with known ejection fraction of 25% was brought to the emergency department by the with decreased level of 7 serial and patient slurring his speech. Per patient's patient had apparently refused to eat over the past couple of days. On the day of her presentation patient's felt patient was having a stroke the EMS squad was called who upon arrival found patient blood glucose to be in the 30s. Treatment was initiated on the field and patient brought to the emergency department. In the ED patient underwent subsequent evaluation with imaging studies which failed to demonstrate any acute CVA. Chest x-ray demonstrated small bilateral pleural effusion patient was found to have markedly elevated proBNP she was made to admit patient to a monitored bed for subsequent management. Hospital Course: 1. Acute metabolic encephalopathy secondary to hypoglycemia/IDDM 2/end-stage renal disease secondary to diabetic [id number]-old male presented with slurring of his speech and metabolic encephalopathy. When EMS arrived to his house he was significantly hypoglycemic and required to be on D5 in the ER to return his blood sugar to normal. Per the since he started dialysis last he was not eating very well and they continued his normal Lantus at 14 units daily. His blood sugars now currently in the 150s and he is only received 3 or 4 units of sliding scale insulin throughout the day, therefore will restart his Lantus at 10 units and I discussed with the and himself, that he is to test his blood sugar and if his blood sugar is still low then he can decrease his Lantus even further. Otherwise once his blood sugar stabilized his metabolic encephalopathy resolved. He is to undergo dialysis tomorrow morning which will be his main mode of diuresis given his EF is 25%. Also his anemia secondary to his chronic renal failure and will be continue to monitor as an outpatient by nephrology and his PCP. Also because he is not being initiated on dialysis hepatitis B panel was obtained which was negative. 2. Acute on chronic systolic heart failure/CAD status post CABG and stents/HTN- he recently had stents placed a couple weeks ago and is on aspirin and Plavix which he will continue, even though he has a dialysis catheter placed in the right IJ. Will start him on losartan for afterload reduction since he is on dialysis now permanently. He is on hydralazine 50 mg 3 times daily which we will decrease to 25 mg 3 times daily and can be weaned as an outpatient by his PCP. Otherwise we will continue with his other home medications including Coreg and Imdur. This plan was discussed with the patient and his family and he demonstrated understanding. Patient Problems: Active and Suspected Problems (Last Reviewed 06/21/18 @ 10:38 by Rico Ackerman MD) Acute encephalopathy (Acute) Hypoglycemia (Acute) - Physical Exam General: Alert, Oriented x3, Cooperative, No apparent distress HEENT: Atraumatic, PERRLA, EOMI, Normocephalic Oral: Moist Mucosa Neck: Supple, No JVD Lungs: Clear to auscultation, Normal air movement, No rhonchi, No wheeze, No rales, Diminished Cardiovascular: Regular rate, Regular Rhythm, Normal S1, Normal S2, No murmurs Abdomen: Soft, Non Tender, Non-Distended, No Hepato-splenomegaly Extremities: No edema, Capillary Refill Less than 3 Seconds Skin: No rashes, No breakdown Neurological: Neuro grossly intact, Sensory exam intact to light touch and pain Psych/Mental Status: Normal Affect, Appropriate Vital Signs Temp Pulse Resp BP Pulse Ox 98.3 F 120 H 19 H 119/77 96 06/25/18 08:19 06/25/18 08:19 06/25/18 08:19 06/25/18 08:19 06/25/18 08:19 Oxygen Flow Rate (L/min) 2 Oxygen Delivery Method Nasal Cannula Weight: 146 lb 9.718 oz Body Mass Index (BMI) 24.4 Finger Stick Blood Glucose 111 Intake and Output for Last 24 Hours 06/23/18 06/24/18 06/25/18 23:59 23:59 23:59 Intake Total 990 / 990 940 / 940 480 / 480 Output Total 1625 / 1625 650 / 650 400 / 400 Balance -635 / -635 290 / 290 80 / 80 Microbiology Past 72 Hours 06/21/18 07:25 Blood Culture - Preliminary Blood Culture (Wb) - Anticubital Left No growth in 48 hours. 06/21/18 07:15 Blood Culture - Preliminary Blood Culture (Wb) - Anticubital Right No growth in 48 hours. 06/21/18 09:18 Urine Culture - Final Urine, Clean Catch Culture exhibits no growth. POC Glucose 06/25/18 06/25/18 06/24/18 11:48 06:39 21:44 POC Glucose 196 H 151 H 134 H 06/24/18 16:31 POC Glucose 169 H Discharge Activity: Return to Normal Activity Call your doctor if you observe: Fever of 101 or Higher, Shortness of breath, Di zziness, Fainting spells, Swelling in the ankles, Chest pain, Increased palpitations (irregular heartbeat) Home Medications: Medications to take at Discharge Clopidogrel Bisulfate [Plavix] 75 mg PO DAILY #0 12/04/15 Carvedilol [Coreg (Beta Pedro)] 25 mg PO BID #90 tab 09/08/17 Aspirin E.C. [Ecotrin] 81 mg PO DAILY 11/07/17 Venlafaxine HCl [Venlafaxine HCl ER] 150 mg PO DAILY 11/07/17 allopurinol 100 mg tablet 100 mg PO DAILY tab 11/21/17 pantoprazole 40 mg tablet,delayed release 40 mg PO BIDAC 11/21/17 isosorbide mononitrate ER 30 mg tablet,extended release 24 hr 30 mg PO DAILY 11/27/17 calcitriol 0.25 mcg capsule 0.25 mcg PO DAILY cap 04/20/18 Sucralfate [Carafate] 1 gm PO BIDCM 06/02/18 Nitroglycerin (INPATIENT USE) [Nitrostat] 0.4 mg SUBLINGUAL Q5M PRN #1 bottle 04/25/19 Mirtazapine [Remeron] 15 mg PO QHS 06/21/18 Insulin Glargine,Hum.rec.anlog [Lantus] 10 unit SQ BREAKFAST #0 06/25/18 Losartan Potassium [Cozaar] 25 mg PO DAILY #30 tablet 06/25/18 hydrALAZINE [Apresoline] 25 mg PO TID tablet 06/25/18 Following Prescrptions Were Given to Patient: Losartan Potassium [Cozaar] 25 mg PO DAILY #30 tablet Primary Care Physician: Prasad Concepcion III, MD [Primary Care Provider] - Please follow up with your Primary Care Physician in: 3-5 days Please Follow Up With: Tracey Royal DO Please Follow Up With: Prasad Concepcion III, MD Disposition: Home Minutes spent on discharge:: 35 Patient Condition:: Stable Medical Necessity - Tobacco Use Smoking Status: Former smoker Meaningful Use Info Meaningful Use Diagnoses (Choose all that apply): CHF - CHF KIRTI/ARB ordered at discharge?: Yes Documented LVEF (%): 25 Code Visit Inpatient E&M: 25917 Disch Hosp
[2018-06-25 13:03] LABS: HEPATITIS B SURFACE AG Negative (Negative)
[2018-06-25 13:04] LABS: Hep B Surface Antibodies Reactive (.)
--- NOTE | 2018-06-25 15:47 | CASEMGMT ---
This LEE BEASLEY faxed most recent CXR to Rolly at [facility] per his request at this time. SStaten LEE BEASLEY
--- NOTE | 2018-06-26 14:35 | CASEMGMT ---
LEE CM DC PHONE CALL DC DATE: 06/25/18 DC Disposition: Home LACE/STRATA: 26/05 Attempted call to patient, no answer. Familia ALMENDAREZN RN AC
== END 2018-06-25 13:05 | disposition home or self-care (01) | DRG 280 ==
LOC: ED 07:53 → PCU 09:08
PROVIDERS: Emergency Medicine; Internal Medicine Nephrology; Surgery; Admitting Provider Internal Medicine; Emergency Provider Emergency Medicine; Family Provider Family Medicine; PCP Family Medicine; Visit Provider Family Medicine
PROC: 0JH63XZ Insertion of Tunneled Vascular Access Device into Chest Subcutaneous Tissue and Fascia, Percutaneous Approach (ICD-10-PCS; principal; 2018-06-21 15:30)
DX: I13.2 Hypertensive heart and chronic kidney disease with heart failure and with stage 5 chronic kidney disease, or end stage renal disease (principal); G93.41 Metabolic encephalopathy; I21.4 Non-ST elevation (NSTEMI) myocardial infarction; I50.23 Acute on chronic systolic (congestive) heart failure; N18.6 End stage renal disease; J18.9 Pneumonia, unspecified organism; E11.649 Type 2 diabetes mellitus with hypoglycemia without coma; I25.10 Atherosclerotic heart disease of native coronary artery without angina pectoris; F41.8 Other specified anxiety disorders; E11.22 Type 2 diabetes mellitus with diabetic chronic kidney disease; D63.1 Anemia in chronic kidney disease; I25.5 Ischemic cardiomyopathy; Z95.810 Presence of automatic (implantable) cardiac defibrillator; Z95.5 Presence of coronary angioplasty implant and graft; Z79.4 Long term (current) use of insulin; Z95.1 Presence of aortocoronary bypass graft; Z87.891 Personal history of nicotine dependence; Z93.3 Colostomy status; Z90.49 Acquired absence of other specified parts of digestive tract; R53.83 Other fatigue; Z98.61 Coronary angioplasty status
CPT/HCPCS: 36415; 70450; 71045; 76000; 80048; 80076; 80307; 80320; 81001; 82140; 82550; 82962; 83605; 83735; 83880; 84100; 84439; 84443; 84484; 85025; 85610; 85730; 86706; 87040; 87086; 87340; 90937; 93005; 93306; 97110; 97162; 97166; 97530; 97535; 97802; 99251; 99285; J7030; A4216; C1750; G0257; G0463; G0480; J1940; J2405; J7799; Q5106

== ENCOUNTER → 2018-07-04 | Outpatient (CLI) | payer MEDICARE, SELFPAY ==
[2018-06-20 09:59] VITALS: BMI 25.3
[2018-06-21 14:39] VITALS: BMI 24.4
--- NOTE | 2018-07-04 10:57 | VDUE_ITS ---
Reason For Study: CKD Right Arm Left Arm Right Cephalic Vein at the wrist measures Left Cephalic Vein at the wrist measures 0.13 0.08 x 0.09 cm. x 0.19 cm. Right Cephalic Vein in the forearm measures Left Cephalic Vein in the forearm measures 0.11 x 0.10 cm. 0.13 x 0.17 cm. Right Cephalic Vein below antecub measures Left Cephalic Vein below antecub measures 0.15 0.11 x 0.12 cm. x 0.16 cm. Right Cephalic Vein above antecub measures Left Cephalic Vein above antecub measures 0.12 0.17 x 0.18 cm. x 0.13 cm. Right Cephalic Vein mid bicep measures 0.18 Left Cephalic Vein at mid bicep measures 0.13 x 0.18 cm. x 0.15 cm. Right Cephalic Vein at the shoulder Left Cephalic Vein at the shoulder measures measures 0.12 x 0.13 cm. 0.16 x 0.15 cm. Right Basilic Vein at the origin measures Rt Basilic vein is noncompresible with 0.49 x 0.53 cm. intraluminal echogenicity that extends from Right Basilic Vein mid bicep measures 0.27 origin to antecube. x 0.26 cm. Rt Brachial artery above mid bicep measures Right Basilic Vein above antecub measures 0.49 x 0.48 cm with a velocity of 80.3 cm/sec. 0.27 x 0.29 cm. Rt Brachial artery splits in two below mid Rt Brachial artery measures 0.44 x 0.46 cm bicep. with a velocity of 84.2 cm/sec. Rt Brachial artery 1 measures 0.40 x 0.36 cm Rt Radial artery measures 0.25 x 0.26 cm with a velocity of 84.2 cm/sec. with a velocity of 58.2 cm/sec. Rt Brachial artery 2 measures 0.30 x 0.27 cm with a velocity of 82.9 cm/sec. Rt Radial artery measures 0.24 x 0.23 cm with a velocity of 67.3 cm/sec. Patient Safety Prelim to Dr. Royal's office. Interpretation Summary Diminutive cephalic veins bilaterally Adequate right upper arm basilic vein Superficial thrombophlebitis left upper arm basilic vein Normal diameters bilateral brachial and radial arteries with split left brachial artery as noted. Ordering Physician: Tracey Royal Referring Physician: JENNY Concepcion M.D. Performed By: Meg Gordon RVT ?
== END | disposition home or self-care (01) ==
LOC: CVS 10:52
PROVIDERS: Family Provider Family Medicine; PCP Family Medicine; Referring Provider Internal Medicine Nephrology; Visit Provider Internal Medicine Nephrology
DX: Z01.818 Encounter for other preprocedural examination (principal); N18.4 Chronic kidney disease, stage 4 (severe)
CPT/HCPCS: 93971; G0365

== ENCOUNTER 2018-07-30 07:43 | Emergency (ER) | payer MEDICARE, SELFPAY ==
[2018-07-30] VITALS (7 sets, daily range): BP systolic 43–98; BP diastolic 28–60; PULSE 40–45; RESP 4–13; TEMP 36.2; O2SAT 92–96; BMI 22.8; BMI 22.4
[2018-07-30] MEDS: Dextrose 50%-Water 25 GM/50 ML DISP.SYRIN IV ×3 (08:00→08:27)
--- NOTE | 2018-07-30 08:05 | EKG12_ITS ---
Test Reason : HYPOGLYCEMIA Blood Pressure : / mmHG Vent. Rate : 040 BPM Atrial Rate : 036 BPM P-R Int : 000 ms QRS Dur : 204 ms QT Int : 696 ms P-R-T Axes : 000 269 011 degrees QTc Int : 567 ms Ventricular-paced rhythm Abnormal ECG Confirmed by RODRICK CABRERA, ALAINA ([id number]), food expeditor SHER CARDENAS ([id number]) on 08/01/2018 12:05:46 PM Referred By: DC Confirmed By:ALAINA MENSAH MD
--- NOTE | 2018-07-30 08:15 | RAD_ITS ---
STUDY: X-RAY CHEST REASON FOR EXAM: Male, 73 years old. Hypoglycemia. TECHNIQUE: Single AP portable view of the chest. COMPARISON: Comparison is made with prior study dated June 21, 2018. FINDINGS: A right-sided double-lumen catheter is seen with the tip at the junction of the superior vena cava and right atrium. Small bilateral pleural effusions slightly more prominent on the right side. Increased markings at the lung bases suggest bibasilar atelectasis and/or infiltrates. These have improved as compared to prior study. Sternal cerclage wires and vascular clips are present from a prior sternotomy and coronary artery bypass graft procedure (CABG). Prior coronary stenting. A left-sided unipolar pacemaker is seen. Normal mediastinum and giovanni. Normal visualized pulmonary arteries. There is atherosclerotic tortuosity of the aortic arch and descending thoracic aorta. There are diffuse degenerative changes of the visualized thoracic spine. There is degenerative osteoarthritis of the bilateral shoulders. There is no demonstrated abnormality of the visualized soft tissue structures of the upper abdomen. RAD/Chest 1 View (Portable) IMPRESSION: Small bilateral pleural effusions with bibasilar atelectasis and/or infiltrates worse on the right side. Electronically Signed: Renard Castro, at 8:49 EDT , Service support ,
[2018-07-30 08:18] LABS: Absolute Lymphocyte Count 0.77 X10^3/ul (0.83-4.51); Absolute Neutrophil Count 8.9 X10^3/uL (2.0-7.7); Basophil# 0.01 X10^3/uL; Basophil% 0.1 % (0-1); Eosinophil# 0.07 X10^3/uL; Eosinophils% 0.7 % (0-5); Hematocrit 35.5 % (40-54); Hemoglobin 11.1 g/dl (13.0-16.5); Lymphocyte # 0.77 X10^3/ul (4.0); Lymphocyte % 7.2 % (19-41); Mean Corp Hgb Conc 31.3 g/gl (32-36); Mean Corpuscular Hgb 32.9 pg (27.0-32.0); Mean Corpuscular Volume 105.3 fL (80-94); Monocyte# 0.87 X10^3/uL; Monocyte% 8.2 % (0-10); Neutrophil % 83.5 % (47-70); RBC Distribution Width CV 23.3 % (11.6-14.6); RBC Distribution Width SD 87.6 fl (35.1-43.9); Red Blood Count 3.37 M/mm3 (4.6-6.2); White Blood Count 10.7 K/mm3 (4.4-11.0)
[2018-07-30 08:19] LABS: Differential Indicated SCAN CRITERIA MET; POSITIVE COUNT YES; POSITIVE DIFFERENTIAL NO; POSITIVE MORPHOLOGY YES; Platelet Count 35 K/mm3 (150-450)
[2018-07-30 08:20] LABS: Absolute Nucleated RBC Count 0.04 10^3/uL (0-5); International Normalized Ratio 2.4; NRBC Flagged by Analyzer 0.4 % (0-5); Prothrombin Time (Protime)PT. 26.4 SECONDS (11.7-14.9)
[2018-07-30 08:21] LABS: Partial Thromboplast Time 39.1 Seconds (24.1-36.2)
[2018-07-30 08:29] LABS: AST(SGOT) 457 U/L (15-37); Alanine Aminotransfer ALT/SGPT 334 U/L (16-61); Albumin, Serum 2.4 g/dL (3.2-5.0); Alkaline Phosphatase 287 U/L (45-117); Anion Gap 22 (5-15); BUN 44 mg/dL (7-18); BUN/Creat Ratio 9.6 RATIO (10-20); Calcium,Total 8.1 mg/dL (8.5-10.1); Chloride 98 mmol/L (98-107); Creatinine, Serum 4.57 mg/dL (0.70-1.30); EST Glomerular Filtration Rate 13 mL/min (>60); Est Glom Filt Rate - Afr Amer 16 mL/min (>60); Estimated Creatinine Clearance 14.18 ml/min; Globulin 2.5 g/dL (2.2-4.2); Glucose 339 mg/dL (74-106); Potassium 5.3 mmol/L (3.5-5.1); Protein, Total 4.9 g/dL (6.4-8.2); Sodium Level 137 mmol/L (136-145)
[2018-07-30] MEDS: Sodium Chloride 19.25 MEQ in Dextrose 10%-Water 250 ML 100 MEQ IV (08:30)
[2018-07-30] MEDS: 0.9% Normal Saline 1,000 ML IV.SOLN. 500 ML IV (08:31)
[2018-07-30 08:33] LABS: Acanthocytes 1+; Anisocytosis 1+; Hypochromasia RARE; Macrocytosis 1+; Ovalocyte RARE; Platelet Estimate MKD DEC (ADEQ); Platelet Morphology LARGE; Polychromasia 1+; Schistocytes RARE
[2018-07-30 08:34] LABS: Lactic Acid 11.3 mmol/L (0.4-2.0)
[2018-07-30 08:41] LABS: Allen Test POS; Base Excess -18 mmol/L (-2 to +2); Bicarbonate 9.6 mmol/L (22-26); Blood Gas Specimen Type ART; O2 Delivery Device NRB Mask; PO2 131 mmHG (75-100); SITE L Radial; SO2 98 % (95-99); Time Given 829; Total Carbon Dioxide 10 mmol/L; pCO2 23.2 mmHg (35-45); pH 7.22 (7.35-7.45)
[2018-07-30] MEDS: 0.9% Normal Saline 1,000 ML 999 ML IV (08:47)
[2018-07-30] MEDS: Norepinephrine 8 mg/250 mL 0.9% NS 9.38 MG CONT INF (08:50)
[2018-07-30 09:50] LABS: Bedside Glucose < 10 mg/dL (70-110)
--- NOTE | 2018-07-30 09:59 | ED.DCSUM_ITS ---
- ER Visit Summary Date of Service: 07/30/18 Chief Complaint: Hypoglycemia History of Present Illness: The patient is a 73 M brought in by EMS for hypoglycemia. History was obtained from the ambulance crew and the patient's . It sounds like the patient was yelling this morning. He woke up around 430 and then again at around 630. He was calling for family members who had previously . EMS found him to be hypoglycemic and hypotensive. They did treat with glucose, but he had no improvement. Per the , the patient has not been eating well for several days. He recently stopped taking insulin. He has been complaining of leg swelling and weakness recently. He is on dialysis and has been compliant. His last hemodialysis was Monday, 2 days ago. Physical Examination: Blood pressure 87/54. Heart rate 45. Temperature 97.1. Respiratory rate 13. 96% on nonrebreather mask. Patient arouses to voice. He is oriented to person and place. Moves all extremities. GCS 13. On my exam, heart rate was 70. Pulses strong and equal. Lungs are diminished bilaterally. Abdomen soft and nontender. He has a left lower quadrant stoma which appears unremarkable. Symmetric lower extremity edema, nontender. Bilateral fingertips are cyanotic and cold. Test Results: EKG showed a paced rhythm at a rate of 40. Hemoglobin 11.1 and platelets 35. Potassium 5.3, CO2 17, anion gap 22, glucose 339, BUN 44, creatinine 4.57. Total bilirubin 1.8. Alkaline phosphatase 287, ALT 334. AST 457. INR 2.4 and PTT 39.1. Troponin 0 0.336. pH 7.22. CO2 23 and O2 131. Chest x-ray showed small bilateral effusions with bibasilar atelectasis worse on the right. Emergency Department Course and Treatment: Patient initially presented with altered mental status, abnormal vitals, and hypoglycemia. Her bedside glucose was low and he was treated with multiple rounds of D50 with no improvement. I ordered D10 which was initiated. Patient also received a liter bolus of normal saline. Warm blankets applied. He was placed on a monitor. I ordered levophed should his vitals not improve. I called the patient's who was en route to the ED. She was not sure about his CODE STATUS. She believed he would be okay with intubation, but was not sure about CPR. She thought that he did not want CPR, but she could not be sure. Patient had no change with multiple dextrose treatments. Vitals did not improve. Labs started to come back. Platelets were 35. His glucose was 339. His liver enzymes were elevated and his lactate was 11. Troponin was 0.336. Patient was in shock. On reevaluation the patient, he had apneic episodes. His mental status was deteriorating. He was not responding to pain. I elected to intubate the patient with direct visualization. He was treated with etomidate and rocuronium. Intubation was successful on the first attempt with a 7.5 ET tube, 23 at the lip. Good color change. Good chest rise. Good pulse ox afterwards. After intubation, I stepped out of the room to inform the patient's . I was subsequently noted that the patient had lost his pulse. CPR was initiated. He had multiple rounds of epinephrine, calcium, and sodium bicarb. Please see the separate nursing notes. Patient had PEA secondary to his pacemaker. We continued with multiple rounds of CPR. Bedside ultrasound showed no cardiac activity. After further discussion with the , CPR was discontinued. The patient was pronounced at 9:07 AM with full agreement of the team. Treatment Plan: As above Disposition: Pending Impression: 1. Cardiopulmonary arrest 2. Presumed septic shock 3. End-stage renal disease This note was generated with [employer] dictation software. It may contain incorrect words, spelling, and punctuation that were not noted in review of the chart prior to signing ED Disposition - Plan for ED Patient: Referrals: Prasad Concepcion III, MD [Primary Care Provider] -
--- NOTE | 2018-07-30 10:25 | CM.ED ---
SOCIAL WORK DISCUSSED CASE WITH NURSING. MET WITH PATIENT'S DAUGHTER AND AT BEDSIDE. INTRODUCED ROLE. PATIENT . EMOTIONAL SUPPORT PROVIDED. FAMILY WAITING ON HOME AT THIS TIME. DAUGHTER INQUIRING IF TUBE CAN BE TAKEN OUT. NURSE, ISSAC UPDATED. 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
[2018-07-30 12:11] LABS: Reflex Lactate? Y
[2018-07-31 13:54] LABS: Pathologist Review Reviewed
--- NOTE | 2018-08-07 13:09 | ED.RN ---
FINGER STICK GLUCOSE NOT ACCURATE MEASUREMENT DUE TO POOR PERFUSION OF PATIENT.
== END 2018-07-30 11:15 ==
PROVIDERS: Emergency Provider Emergency Medicine; Family Provider Family Medicine; PCP Family Medicine
DX: I46.9 Cardiac arrest, cause unspecified (principal); R65.21 Severe sepsis with septic shock; N18.6 End stage renal disease; Z99.2 Dependence on renal dialysis; I25.10 Atherosclerotic heart disease of native coronary artery without angina pectoris; I25.2 Old myocardial infarction; D63.1 Anemia in chronic kidney disease; I13.2 Hypertensive heart and chronic kidney disease with heart failure and with stage 5 chronic kidney disease, or end stage renal disease; E11.22 Type 2 diabetes mellitus with diabetic chronic kidney disease; I50.9 Heart failure, unspecified; Z87.891 Personal history of nicotine dependence
CPT/HCPCS: 31500; 36600; 71045; 80053; 82803; 82962; 83605; 84484; 85025; 85610; 85730; 87040; 92950; 93005; 96365; 96375; 99251; 99285; J7030; J7050; A4216; G0463